=== PATIENT | female | born 1950 | race Caucasian/White ===

== ENCOUNTER 2020-04-16 07:36 | Outpatient (REF) | payer MEDICARE, SELFPAY ==
[2020-04-16 08:26] LABS: MANUAL DIFF FLAG NO
[2020-04-16 08:30] LABS: Basophils Absolute Auto 0.1 X10*3/uL (0.0-0.2); Basophils Percent Auto 0.9 % (0-2); Eosinophils Absolute Auto 0.4 X10*3/uL (0.0-0.4); Eosinophils Percent Auto 7.1 % (0-4); Hemoglobin 13.4 g/dl (12.0-16.0); Imm Gran Abs Auto 0.01 X10*3/uL (0.00-0.03); Imm Gran Pct Auto 0.2 % (0.0-0.4); Lymphocytes Absolute Auto 2.2 X10*3/uL (1.2-4.9); Lymphocytes Percent Auto 37.7 % (20-40); Mean Corpuscular HGB Conc 34.4 g/dl (31.0-35.0); Mean Corpuscular Hemoglobin 32.5 pg (27.0-33.0); Mean Corpuscular Volume 94.7 fL (80-98); Mean Platelet Volume 11.7 fL (9.4-12.3); Monocytes Absolute Auto 0.5 X10*3/uL (0.1-1.2); Monocytes Percent Auto 8.2 % (2-11); Neutrophils Absolute Auto 2.6 X10*3/uL (2.0-8.3); Neutrophils Percent Auto 45.9 % (45-73); Platelet Count 251 X10*3/uL (160-400); Red Blood Count 4.12 X10*6/uL (4.20-5.50); Red Cell Distribution Width 12.7 % (11.0-16.0); White Blood Count 5.8 X10*3/uL (4.8-10.8)
[2020-04-16 08:43] LABS: Glucose Urine UA NEG (NEG); Leukocyte Esterase Urine 1+ (NEG); Nitrite Urine NEG (NEG); Specific Gravity - Urine 1.025 (1.005-1.025); Urine Blood TRACE (NEG); Urine Ketones NEG (NEG); Urine Protein NEG (NEG-TRACE)
[2020-04-16 08:47] LABS: Appearance Urine HAZY; Color Urine YELLOW
[2020-04-16 08:58] LABS: Bacteria Urine TRACE /LPF; Mucus Urine TRACE /LPF; RBC Urine 0-2 /HPF (0); Squamous Epithelial Cell Urine 2+ /LPF
[2020-04-16 08:58] LABS: Alanine Aminotransferase 9 U/L (0-31); Alkaline Phosphatase 59 U/L (39-117); Anion Gap 9 (12-20); Aspartate Amino Transferase 16 U/L (5-31); Bilirubin Total 0.4 mg/dL (0.0-1.0); Blood Urea Nitrogen 15 mg/dL (9-16); Carbon Dioxide 30 mmol/L (22-29); Chloride 107 mmol/L (96-108); Cholesterol 235 mg/dL; Estimated Glomerular Filt Rate > 60; Glucose Fasting 94 mg/dL (60-99); HDL Cholesterol 84 mg/dL; LDL Cholesterol Calculated 130 mg/dl; Potassium 4.7 mmol/l (3.3-5.1); Sodium 141 mmol/L (135-145); Total Protein 6.6 g/dL (6.5-8.0); Triglycerides 106 mg/dL
[2020-04-16 09:15] LABS: TSH reflex Free T4 3.75 mIU/mL (0.32-4.0); Vitamin D 25-OH Total 37.8 ng/mL (>30)
== END 2020-04-16 07:37 | disposition home or self-care (01) ==
LOC: HO.LAB 07:36
PROVIDERS: PCP Internal Medicine; Visit Provider Internal Medicine
DX: Z00.00 Encounter for general adult medical examination without abnormal findings (principal); E78.00 Pure hypercholesterolemia, unspecified; J30.9 Allergic rhinitis, unspecified; M81.0 Age-related osteoporosis without current pathological fracture; E66.3 Overweight
CPT/HCPCS: 36415; 80053; 80061; 81001; 82306; 84443; 85025; 87086

== ENCOUNTER → 2020-04-20 07:55 | Outpatient (BNVA) | payer MEDICARE, SELFPAY | PROVIDERS: PCP Internal Medicine; Referring Provider Internal Medicine; Visit Provider Internal Medicine Endocrinology, Diabetes & Metabolism | DX: M81.0 Age-related osteoporosis without current pathological fracture (principal); E55.9 Vitamin D deficiency, unspecified | CPT/HCPCS: 99213; Q3014 ==

== ENCOUNTER 2020-10-04 09:46 | Outpatient (REF) | payer MEDICARE, SELFPAY ==
--- NOTE | ~2020-10-04 | XR_ITS ---
EXAMINATION: XR HAND, LEFT CLINICAL INFORMATION: Effusion, left hand COMPARISON: None TECHNIQUE: PA, lateral, and oblique views of the left hand. FINDINGS: There is no fracture or dislocation. Alignment is anatomic. There is significant joint space narrowing of the first carpometacarpal joint with sclerosis and prominent osteophyte formation. Overlying soft tissue swelling. There are also moderate degenerative changes of the triscaphe joint with narrowing and sclerosis. Mild to moderate degenerative changes throughout the interphalangeal joints with narrowing and osteophyte formation. XR/XR hand LT min 3V IMPRESSION: Advanced degenerative changes of the first carpometacarpal joint with overlying soft tissue swelling.
[2020-10-04 11:00] LABS: MANUAL DIFF FLAG NO
[2020-10-04 11:12] LABS: Basophils Percent Auto 0.4 % (0-2); Eosinophils Absolute Auto 0.3 X10*3/uL (0.0-0.4); Eosinophils Percent Auto 3.3 % (0-4); Hematocrit 33.6 % (37-47); Hemoglobin 11.5 g/dl (12.0-16.0); Imm Gran Abs Auto 0.02 X10*3/uL (0.00-0.03); Imm Gran Pct Auto 0.2 % (0.0-0.4); Lymphocytes Absolute Auto 1.7 X10*3/uL (1.2-4.9); Lymphocytes Percent Auto 18.4 % (20-40); Mean Corpuscular HGB Conc 34.2 g/dl (31.0-35.0); Mean Corpuscular Hemoglobin 31.5 pg (27.0-33.0); Mean Corpuscular Volume 92.1 fL (80-98); Mean Platelet Volume 11.8 fL (9.4-12.3); Monocytes Absolute Auto 0.8 X10*3/uL (0.1-1.2); Monocytes Percent Auto 8.3 % (2-11); Neutrophils Absolute Auto 6.4 X10*3/uL (2.0-8.3); Neutrophils Percent Auto 69.4 % (45-73); Platelet Count 297 X10*3/uL (160-400); Red Blood Count 3.65 X10*6/uL (4.20-5.50); Red Cell Distribution Width 12.2 % (11.0-16.0); White Blood Count 9.2 X10*3/uL (4.8-10.8)
[2020-10-04 11:25] LABS: Alanine Aminotransferase 9 U/L (0-31); Albumin Level 3.9 g/dL (3.5-5.0); Alkaline Phosphatase 60 U/L (39-117); Anion Gap 12 (12-20); Aspartate Amino Transferase 14 U/L (5-31); Bilirubin Total 0.4 mg/dL (0.0-1.0); Blood Urea Nitrogen 12 mg/dL (9-16); Calcium 9.1 mg/dL (8.4-10.2); Carbon Dioxide 25 mmol/L (22-29); Chloride 104 mmol/L (96-108); Estimated Glomerular Filt Rate > 60; Glucose Random 92 mg/dL (60-115); Potassium 4.7 mmol/L (3.3-5.1); Sodium 136 mmol/L (135-145); Total Protein 6.6 g/dL (6.5-8.0)
[2020-10-04 12:11] LABS: Erythrocyte Sedimentation Rate 20 MM/HR (0-20)
== END 2020-10-04 09:47 | disposition home or self-care (01) ==
LOC: HO.LAB 09:46
PROVIDERS: PCP Internal Medicine; Visit Provider Internal Medicine
DX: I10 Essential (primary) hypertension (principal); M25.442 Effusion, left hand; M25.542 Pain in joints of left hand; M79.7 Fibromyalgia; M10.9 Gout, unspecified
CPT/HCPCS: 36415; 73130; 80053; 84550; 85025; 85652

== ENCOUNTER 2020-11-11 13:38 | Outpatient (REF) | payer MEDICARE, SELFPAY ==
--- NOTE | ~2020-11-11 | US_ITS ---
EXAMINATION: US VENOUS ULTRASOUND WITH DOPPLER LOWER EXTREMITY, LEFT CLINICAL INFORMATION: Left leg edema and pain COMPARISON: None TECHNIQUE: Ultrasound of the deep veins is performed from the hip to the calf with compression sonography and color and pulse Doppler assessment. Spectral analysis with color-flow imaging is performed. FINDINGS: There is normal venous compression and respiratory variation and augmented flow. The visualized common femoral vein, superficial femoral vein, profunda femoral vein, popliteal vein, and the trifurcation region shows no evidence of deep venous thrombosis. There is no significant popliteal fossa cyst. If the patient's symptoms persist, followup ultrasound in 5 days 7 days might be of value to exclude proximal propagation from a non-visualized calf vein. US/US venous duplex LE LT IMPRESSION: No acute DVT demonstrated in the left lower extremity.
== END 2020-11-11 13:39 | disposition home or self-care (01) ==
LOC: HO.US 13:38
PROVIDERS: PCP Internal Medicine; Visit Provider Internal Medicine
DX: M79.662 Pain in left lower leg (principal); M79.89 Other specified soft tissue disorders
CPT/HCPCS: 93971

== ENCOUNTER → 2020-12-15 07:18 | Outpatient (REF) | payer MEDICARE, SELFPAY ==
--- NOTE | 2020-12-15 07:21 | CA_ITS ---
Transthoracic Echocardiogram Patient (Last, First, Middle): Yaritza Reich A Gender: Female Date of : 1950 Age: 70 Procedure Date: 12/15/2020 Procedure Type: Transthoracic Echocardiogram Location: OP Height: 157.48 cm Weight: 63.05 kg BSA: 1.64 m2 Heart Rate: bpm BP: 130 / 80 mmHg Computer Systems Technician: OLIVIER Hoffman MD: Bernabe Peterson MD Symptoms: R06.00 - Dyspnea, unspecified Study Quality: Good ECG Rhythm: Sinus Conclusions: - The left ventricular systolic function is normal. The calculated ejection fraction is 60% by biplane method. - Evidence suggests grade I (mild) diastolic dysfunction. - The left atrium is severely dilated. - No obvious valvular pathology seen on this study. Findings Left Ventricle Normal left ventricular cavity size. The left ventricular systolic function is normal. The visually estimated ejection fraction is between 60-65%. The calculated ejection fraction is 60% by biplane method. There is no evidence of regional wall motion abnormalities. E/E prime ratio is between 8 and 15 consistent with indeterminate filling pressures. Evidence suggests grade I (mild) diastolic dysfunction. Right Ventricle Normal right ventricular cavity size and systolic function. Atria The left atrium is severely dilated. The right atrium is normal in size. Aortic Valve There is a normal trileaflet aortic valve. There is no aortic valve stenosis. There is no aortic valve regurgitation. Mitral Valve The mitral valve appears normal. There is trace mitral valve regurgitation. There is no mitral valve stenosis. Pulmonic Valve The pulmonic valve was not well visualized. Tricuspid Valve Normal tricuspid valve structure. There is trace tricuspid valve regurgitation. The pulmonary artery systolic pressure is normal. Great Vessels The asc aorta is normal in size. Venous The inferior vena cava is normal in size and collapses greater than 50% with inspiration. Pericardium/Pleural There is a trivial pericardial effusion. Prior Study Comparison No prior study available for comparison. Recommendations, Care & Conclusions No obvious valvular pathology seen on this study. Measurements 2D Linear Measurements IVSd: 0.84 0.6-0.9/0.6-1.0 cm LVIDd: 3.66 3.9-5.3/4.2-5.9 cm LVIDd Index: 2.23 2.4-3.2/2.2-3.1 cm/m2 LVIDs: 2.53 2.0-3.6 cm LVPWd: 0.85 0.7-1.1 cm Ao Root: 3.00 2.1-3.5 cm LA Diam: 3.60 2.7-3.8/3.0-4.0 cm LAIDs Index: 2.20 1.5-2.3 cm/m2 LV Mass: 107.91 67-162/88-224 g LV Mass Index: 65.80 43-95/49-115 g/m2 LVOT Diam: 2.00 3.0+(-)1.3 cm 2D Systolic Function EF 4C: 56.70 >55% EF 2C: 60.90 >55% EF BiP: 59.50 >55% Mitral Valve MV Pk E: 0.97 MV PK A: 0.80 MV Decel Time: 301.00 E/A: 1.20 E'Lateral: 9.51 E'Medial: 7.83 E/E' Med: 12.30 E/E' Lat: 10.20 PHT: 88.00 MVA PHT: 2.50 Decel Ward: 3.21 Aortic Valve AoV Pk Gurmeet: 1.66 AoV Mn Gurmeet: 1.12 AoV VTI: 0.39 AoV Pk Grad: 11.00 Aov Mn Grad: 6.00 RACHEL Cont.VTI: 1.95 LVOT LVOT Pk Gurmeet: 1.08 LVOT Mn Gurmeet: 0.60 LVOT VTI: 0.24 LVOT Pk Grad: 5.00 LVOT Mn Grad: 2.00 LVOT Diam: 2.00 LVOT Area: 3.14 Diastolic Function MV Pk E: 0.97 MV Pk A: 0.80 E/A: 1.20 E'Medial: 7.83 E/E' Med: 12.30 E' Laterial: 9.51 E/E' Lat: 10.20 Tricuspid Valve TR Pk Gurmeet: 2.04 TR Pk Grad: 17.00 RA Press: 3.00 RVSP: 20.00 Great Vessels Aorta Ao Root-2D: 3.00 2.0-3.7 cm Ao Asc: 2.90 2.1-3.4 cm Ao Arch: 2.40 Updated in Other Vendor System with Status of Final Errol Nolan MD electronically signed on 12/16/2020 12:54:42 PM with status of Final
== END ==
LOC: HO.CARD 07:18
PROVIDERS: PCP Internal Medicine; Visit Provider Internal Medicine
DX: R06.00 Dyspnea, unspecified (principal); R42 Dizziness and giddiness
CPT/HCPCS: 93306

== ENCOUNTER → 2021-02-24 08:34 | Outpatient (BNVA) | payer MEDICARE, SELFPAY | PROVIDERS: PCP Internal Medicine; Referring Provider Internal Medicine; Visit Provider Internal Medicine Cardiovascular Disease | DX: R06.02 Shortness of breath (principal) | CPT/HCPCS: 93005; 99202 ==

== ENCOUNTER → 2021-03-09 07:52 | Outpatient (REF) | payer MEDICARE, SELFPAY ==
--- NOTE | ~2021-03-09 | NM_ITS ---
Exercise Myocardial perfusion study Indication: Chest pain to evaluate for myocardial ischemia Technique: The patient was brought in for an exercise perfusion study on 03/09/2021. Patient performed exercise as per Royal protocol and was injected 25 mCi of sestamibi was given intravenously one target HR was achieved. Images were obtained using the SPECT gamma camera interlaced with the gating device. Images were obtained in supine position. Resting perfusion study was performed on 03/10/2021. Patient was administered 25 mCi of sestamibi intravenously at rest. Images were then obtained in supine position. Images obtained with and without CT attenuation. Total DLP 72 mGy-cm. Images were processed with the software and compared side to side in short axis, horizontal long axis and vertical long axis views. Findings: The stress perfusion study showed nonattenuated images show minimal thinning of the distal anterior wall of the LV myocardium. Remainder of the LV myocardium is normally perfused. Attenuation corrected images show mildly reduced uptake in the apex of the LV myocardium.. The gated study shows normal LV systolic function with calculated LVEF of 60%. LV cavity is normal in size. The gated study shows normal systolic wall thickening and contraction of all segments. There is no transient ischemic dilation. Resting study shows no change in perfusion pattern compared to stress perfusion study. Gating at rest reveals normal systolic wall motion with ejection fraction at 54%. The findings are consistent with normal myocardial perfusion. NM/NM cardiolite stress test Impression: 1. Normal myocardial perfusion 2. Gated LVEF is 60% 3. Transient ischemic dilatation not present Stress EKG is negative for ischemia
--- NOTE | 2021-03-09 08:15 | CA_ITS ---
Acquisition Time: 2021-03-09 08:15:29 Total Exercise Time: 00:05:00 Test Indications: Dyspnea Medications: VIT C and D Protocol: BILLY Max HR: 137 BPM 92% of Pred: 148 BPM Max BP: 192/058 mmHG Max Work Load: 6.0 METS Exercise stess test with exercise 5 min of Billy protocol, ( last minute speed reduced to 2.2 MPH) with moderate shortness of breath, no chest discomfort, with isolated PACs and PVCs during exercise and recovery, occassional ventricular cuplet in recovery, with normtensive response to exercise, without EKG changes meeting criteria for ischemia. Nuclear images pending. Test reviewed with Dr Nolan. Referred By: Tomer Morales Overread By: BARRY RANGEL
== END ==
LOC: HO.CARD 07:52
PROVIDERS: PCP Internal Medicine; Visit Provider Internal Medicine Cardiovascular Disease
DX: R07.9 Chest pain, unspecified (principal); R06.02 Shortness of breath
CPT/HCPCS: 78452; 93017; A9500

== ENCOUNTER 2021-03-30 12:35 | Day surgery (SDC) | payer MEDICARE, SELFPAY ==
--- NOTE | 2021-03-22 09:10 | P.CONAN_ITS ---
Documented by User: Antonina Mckinnon NP 03/29/21 09:22 HPI - Anesthesia Eval Consult details Narrative: 70yo F for Transesophageal Echocardiogram PMFSH Active Problems Active Problems: All Active Problems (Updated 02/24/21 @ 09:12 by Tomer Morales MD) SOB (shortness of breath) on exertion (Acute) Left atrial dilatation (Acute) Orthostatic lightheadedness (Acute) Pain and swelling of left lower leg (Acute) Exertional dyspnea (Acute) Swelling of joint of left hand (Acute) Pain in joint of left hand (Acute) Overweight (BMI 25.0-29.9) (Acute) Allergic rhinitis (Acute) Pure hypercholesterolemia (Acute) Osteoarthritis (Acute) Dyslipidemia (Acute) Vitamin D deficiency (Acute) Age related osteoporosis (Acute) Past Medical History Medical History Age related osteoporosis Allergic rhinitis Dyslipidemia Exertional dyspnea Left atrial dilatation Orthostatic lightheadedness Osteoarthritis Overweight (BMI 25.0-29.9) Pain and swelling of left lower leg Pain in joint of left hand Pure hypercholesterolemia Swelling of joint of left hand Vitamin D deficiency Family History Family History Mother Prediabetes Hyperlipidemia Hypertension Father No problems noted. Surgical History Surgical History Hx of cataract removal with insertion of prosthetic lens (~12/2014) Hx of section Social History Social History Alcohol intake: current Alcohol intake frequency: a few times a week Patient Tobacco Use Status: Never used Tobacco Use of substances other than those prescribed or required for medical reasons: No Are you DNR?: No Advance Directives: No Advance Directives Information Provided: Yes Meds Allergies Allergy/AdvReac Type Severity Reaction Status Date / Time Sulfa (Sulfonamide Allergy Intermediate Swollen Verified 11/11/20 12:58 Antibiotics) red eyes amoxicillin [From Augmentin] AdvReac Severe DIARRHEA Verified 11/11/20 12:58 Home Medications Medication Instructions Recorded Confirmed Last Taken Type ascorbate calcium (vitamin C) 500 500 mg PO DAILY 04/20/20 02/24/21 Unknown History mg tablet Exam Exam Date and Time: March 22, 2021 0910 Narrative Narrative: ECHO 11/2020 Conclusions: - The left ventricular systolic function is normal. The? calculated ejection fraction is 60% by biplane method. ? - Evidence suggests grade I (mild) diastolic dysfunction.? - The left atrium is severely dilated. ? - No obvious valvular pathology seen on this study.? EKG 01/2021 normal sinus rhythm with normal EKG at 63 beats per minute NM cardiolite stress test 03/2021 Impression: ? 1.? Normal myocardial perfusion 2.? Gated LVEF is 60% 3. Transient ischemic dilatation not present ? Stress EKG is negative for ischemia Assessment and Plan Assessment Anesthesia Assessment: Chart Reviewed Documented by User: Maggie Hobson MD 03/30/21 13:31 [facility] Past Medical History Medical History Age related osteoporosis Allergic rhinitis Dyslipidemia Exertional dyspnea Left atrial dilatation Orthostatic lightheadedness Osteoarthritis Overweight (BMI 25.0-29.9) Pain and swelling of left lower leg Pain in joint of left hand Pure hypercholesterolemia Swelling of joint of left hand Vitamin D deficiency Family History Family History Mother Prediabetes Hyperlipidemia Hypertension Father No problems noted. Surgical History Surgical History Hx of cataract removal with insertion of prosthetic lens (~12/2014) Hx of section History of Problems with Anesthesia: Yes Social History Social History Alcohol intake: current Alcohol intake frequency: a few times a week Patient Tobacco Use Status: Never used Tobacco Use of substances other than those prescribed or required for medical reasons: No Are you DNR?: No Advance Directives: No Advance Directives Information Provided: Yes Meds Allergies Allergy/AdvReac Type Severity Reaction Status Date / Time Sulfa (Sulfonamide Allergy Intermediate Swollen Verified 11/11/20 12:58 Antibiotics) red eyes amoxicillin [From Augmentin] AdvReac Severe DIARRHEA Verified 11/11/20 12:58 Home Medications Medication Instructions Recorded Confirmed Last Taken Type ascorbate calcium (vitamin C) 500 500 mg PO DAILY 04/20/20 02/24/21 Unknown History mg tablet Assessment and Plan Assessment Anesthesia Assessment: Anesthesia Plan Discussed Final Anesthetic Review History of Problems with Anesthesia: Yes NPO: Yes ASA Class: II (Edentulous) Final Preanesthetic Review: Meds/Allgs Chart Reviewed, Consent Obtained/Reviewed and Anes Risks/Benef Reviewed Patient Risk: Intermediate Procedure Risk: Intermediate Anesthetic Plan Anesthetic Plan: MAC: Disposition: Standard PACU
[2021-03-30 13:05] VITALS: BP 170/81; PULSE 71; RESP 20; TEMP 36.2; O2SAT 99; BMI 24.7
--- NOTE | 2021-03-30 13:06 | CA_ITS ---
Transesophageal Echocardiogram Patient (Last, First, Middle): Yaritza Reich A Gender: Female Date of : 1950 Age: 70 Procedure Date: 03/30/2021 Procedure Type: Transesophageal Echocardiogram Location: OP Height: 152.4 cm Weight: kg Rn [facility]: [facility] Referring MD: Tomer Morales MD Creative Services Specialist: Tomer Morales MD Symptoms: R06.02 - Shortness of breath Conclusion: ??? 1. Normal left ventricle systolic function with grade 1 diastolic dysfunction 2. Dilated left atrium with no apparent abnormalities 3. Normal cardiac valvular structure and function 4. No intracardiac thrombi, masses or vegetation 5. Normal ascending aorta 6. No intracardiac shunt 7. No significant pericardial disease Findings Procedure Information Consent was obtained prior to the procedure. Pre ELIGIO oral cavity was checked and revealed no overcrowding. The adult 3D probe was passed with no difficulty. This was a technically good study. Left Ventricle Normal left ventricular size, thickness, and systolic function. The visually estimated ejection fraction is between 60-65%. Spectral Doppler is indicative of an impaired relaxation filling pattern. E/E prime ratio is <8, consistent with normal filling pressures. Evidence suggests grade I (mild) diastolic dysfunction. Right Ventricle Normal right ventricular cavity size and systolic function. Atria The left atrium is moderately dilated. There is lipomatous hypertrophy of the interatrial septum. There is no evidence of interatrial shunt. The left atrial appendage was identified in multiple views. There were thrombus or masses seen in the left atrial appendage. The left upper, right upper and right lower pulmonary vein drain normally into the left atrium. The right atrium is normal in size. The IVC and SVC drain normally into the right atrium. The right atrial appendage is identified. Aortic Valve Normal aortic valve structure and function. There is no aortic valve stenosis. There is no evidence of a mass on the aortic valve. There is no aortic valve regurgitation. Mitral Valve Normal mitral valve structure and function. There is no mitral valve prolapse. There is trace mitral valve regurgitation. There is no mitral valve stenosis. There is no mass noted on the mitral valve. Pulmonic Valve The pulmonic valve is normal. There is trace pulmonic valve regurgitation. Tricuspid Valve Normal tricuspid valve structure. Great Vessels All visible segments of the aorta are normal in size. The visualized portions of the pulmonary artery and branches are normal. Venous The inferior vena cava is collapsed, consistent with reduced intravascular volume. Pericardium/Pleural There is no evidence of pericardial effusion. Updated by Tomer Morales on 02:37 PM with Status of Final Tomer Morales MD electronically signed on 03/31/2021 2:37:18 PM with status of Final
[2021-03-30] MEDS: Lactated Ringers 1,000 ML 100 ML IVCONT (13:29)
[2021-03-30 14:38] VITALS: BP 124/59; PULSE 67; RESP 18; TEMP 36.2; O2SAT 99
[2021-03-30 14:53] VITALS: BP 156/75; PULSE 63; RESP 16; O2SAT 97
[2021-03-30 15:07] VITALS: BP 157/71; PULSE 64; RESP 18; TEMP 36.2; O2SAT 99
--- NOTE | 2021-03-30 15:07 | MHC.SHP ---
Pre-Procedural Eval Section A Date of Service: 03/30/21 The patient is an INPATIENT: No Changes since office visit: Yes Patient answered all questions; No Cold of Flu in the past 2 weeks, No New Medical Problems and No Changes in Medication Section B Chief Complaint: SOB Allergies: Allergies Allergy/AdvReac Type Severity Reaction Status Date / Time Sulfa (Sulfonamide Allergy Intermediate Swollen Verified 11/11/20 12:58 Antibiotics) red eyes amoxicillin [From Augmentin] AdvReac Severe DIARRHEA Verified 11/11/20 12:58 Plan I have reviewed the history and physical and performed a pertinent physical examination on my patient. No changes have occurred unless specified.
== END 2021-03-30 16:03 | disposition home or self-care (01) ==
PROVIDERS: PCP Internal Medicine; Visit Provider Internal Medicine Cardiovascular Disease
PROC: (CPT 93312; principal; 2021-03-30 14:10)
DX: R06.02 Shortness of breath (principal); Z88.0 Allergy status to penicillin; Z88.2 Allergy status to sulfonamides
CPT/HCPCS: 93312

== ENCOUNTER 2021-04-18 07:40 | Outpatient (REF) | payer MEDICARE, SELFPAY ==
--- NOTE | 2021-04-18 17:33 | PFT_ITS ---
INDICATION: Dyspnea. SPIROMETRY: The FEV1 to FVC is 76% with an FEV1 of 1.25 L, which is 62% predicted and an FVC of 1.65 L, which is 61% predicted. No significant response to bronchodilators noted. To note, the [id number] decreased to 49% predicted. Maximum voluntary ventilation 61% predicted. LUNG VOLUMES: Total lung capacity 82% predicted with a residual volume of 111% predicted. DIFFUSION CAPACITY: DLCO 52% predicted. COMPARISONS: None. INTERPRETATION: No definitive obstructive nor restrictive ventilatory defects identified. No significant response to bronchodilators noted. The patient does have some degree of small airways disease noted and there is also mild decrease in maximum voluntary ventilation secondary to likely deconditioning. Lung volumes are within normal limits except for low normal total lung capacity. In addition to that, there is a moderate diffusion impairment likely secondary to underlying pulmonary vascular conditions, although occult interstitial lung disease cannot be ruled out. If asthma is in the differential, methacholine challenge may be helpful in assessing for hyper-reactive airways, otherwise clinical correlation warranted. Regulo Maguire MD MR/MODL / [id number]
== END 2021-04-18 07:41 | disposition home or self-care (01) ==
LOC: HO.RESP 07:40
PROVIDERS: PCP Internal Medicine; Visit Provider Internal Medicine Cardiovascular Disease
DX: R06.00 Dyspnea, unspecified (principal); R06.02 Shortness of breath; R42 Dizziness and giddiness
CPT/HCPCS: 94060; 94727; 94729

== ENCOUNTER 2021-04-27 09:02 | Outpatient (REF) | payer MEDICARE, SELFPAY ==
[2021-04-27 11:08] LABS: Hematocrit 41.5 % (37-47); Hemoglobin 13.9 g/dl (12.0-16.0); Mean Corpuscular HGB Conc 33.5 g/dl (31.0-35.0); Mean Corpuscular Hemoglobin 30.8 pg (27.0-33.0); Mean Corpuscular Volume 91.8 fL (80-98); Mean Platelet Volume 12.4 fL (9.4-12.3); Platelet Count 283 X10*3/uL (160-400); Red Blood Count 4.52 X10*6/uL (4.20-5.50); Red Cell Distribution Width 13.6 % (11.0-16.0); White Blood Count 5.7 X10*3/uL (4.8-10.8)
[2021-04-27 11:14] LABS: INTERNATIONAL NORM RATIO 0.9 (0.9-1.1); Prothrombin Time 10.6 SEC (9.9-13.0)
[2021-04-27 11:45] LABS: Anion Gap 16 (12-20); Blood Urea Nitrogen 11 mg/dL (9-16); Calcium 10.2 mg/dL (8.4-10.2); Carbon Dioxide 26 mmol/L (22-29); Chloride 102 mmol/L (96-108); Estimated Glomerular Filt Rate > 60; Glucose Random 111 mg/dL (60-115); Potassium 5.1 mmol/L (3.3-5.1); Sodium 139 mmol/L (135-145)
== END 2021-04-27 09:03 | disposition home or self-care (01) ==
LOC: HO.LAB 09:02
PROVIDERS: PCP Internal Medicine; Referring Provider Internal Medicine; Visit Provider Internal Medicine Cardiovascular Disease
DX: R06.00 Dyspnea, unspecified (principal); R06.02 Shortness of breath
CPT/HCPCS: 36415; 80048; 85027; 85610; 99212

== ENCOUNTER 2021-05-04 08:44 | Outpatient (REF) | payer MEDICARE, SELFPAY ==
--- NOTE | ~2021-05-04 | FL_ITS ---
EXAMINATION: XR GI SERIES CLINICAL INFORMATION: Abdominal pain. COMPARISON: None TECHNIQUE: Upper GI was performed using thin and thick barium and effervescent granules. FINDINGS: There is a moderate-sized hiatal hernia. There is gastroesophageal reflux. Stomach and duodenum are otherwise normal. No fold thickening, mass, ulcer or stricture is seen. FLUOROSCOPY TIME: 0.9 minutes DOSE AREA PRODUCT: 5.8 Soriano per centimeter squared. 25 saved fluoroscopic images. FL/FL upper GI series IMPRESSION: Moderate-sized hiatal hernia and gastroesophageal reflux.
== END 2021-05-04 08:45 | disposition home or self-care (01) ==
LOC: HO.XRAY 08:44
PROVIDERS: Visit Provider Internal Medicine
DX: R10.9 Unspecified abdominal pain (principal)
CPT/HCPCS: 74240

== ENCOUNTER → 2021-05-17 14:44 | Outpatient (BNVA) | payer MEDICARE, SELFPAY | PROVIDERS: PCP Internal Medicine; Referring Provider Internal Medicine; Visit Provider Nurse Practitioner Family | DX: I51.7 Cardiomegaly (principal); E78.5 Hyperlipidemia, unspecified; R06.02 Shortness of breath; Z98.890 Other specified postprocedural states | CPT/HCPCS: 99212 ==

== ENCOUNTER 2021-05-23 13:53 | Emergency (ER) | payer MEDICARE, SELFPAY ==
--- NOTE | ~2021-05-23 | US_ITS ---
EXAMINATION: US VENOUS ULTRASOUND WITH DOPPLER LOWER EXTREMITY, LEFT CLINICAL INFORMATION: Left leg edema COMPARISON: Left leg DVT study 11/11/2020 TECHNIQUE: Ultrasound of the deep veins is performed from the hip to the calf with compression sonography and color and pulse Doppler assessment. Spectral analysis with color-flow imaging is performed. FINDINGS: There is normal venous compression and respiratory variation and augmented flow. The visualized common femoral vein, superficial femoral vein, profunda femoral vein, popliteal vein, and the trifurcation region shows no evidence of deep venous thrombosis. There is no significant popliteal fossa cyst. If the patient's symptoms persist, followup ultrasound in 5 days 7 days might be of value to exclude proximal propagation from a non-visualized calf vein. US/US venous duplex LE LT IMPRESSION: No DVT demonstrated in the left lower extremity.
--- NOTE | ~2021-05-23 | CT_ITS ---
EXAMINATION: CT HEAD WITHOUT CONTRAST CLINICAL INFORMATION: Dizziness. COMPARISON: None TECHNIQUE: Contiguous axial imaging was performed from the skull base to vertex without intravenous administration of contrast. This CT examination was performed using dose optimization techniques as appropriate, variously including the following: *Automated exposure control *Adjustment of mA and/or kV according to patient size (this includes techniques or standardized protocols for targeted exams where dose is matched to indication/reason for exam; i.e. extremities or head) *Use of iterative reconstruction technique DLP: 592 mGy-cm FINDINGS: There is no evidence of acute intracranial hemorrhage or edematous territorial infarction. A few foci of hypoattenuation in the periventricular and deep white matter are consistent with mild microangiopathy. Soriano-white matter differentiation is preserved. The ventricles are normal in size and configuration. No evidence for obstructive hydrocephalus. No abnormal mass effect or midline shift. No extra-axial fluid collections. No acute soft tissue or osseous abnormalities. Large mucus retention cyst in the left maxillary sinus. Remaining of the paranasal sinuses and mastoids are clear. CT/CT head/brain wo con IMPRESSION: No evidence of acute intracranial hemorrhage or edematous territorial infarction.
--- NOTE | 2021-05-23 15:21 | ECG_ITS ---
Test Reason : Numbness Blood Pressure : / mmHG Vent. Rate : 066 BPM Atrial Rate : 066 BPM P-R Int : 142 ms QRS Dur : 086 ms QT Int : 398 ms P-R-T Axes : 051 024 038 degrees QTc Int : 417 ms Normal sinus rhythm RSR' or QR pattern in V1 suggests right ventricular conduction delay Otherwise normal ECG When compared with ECG of 01-DEC-2014 08:12, No significant change was found Referred By: Generic ED Physician Electronically Signed By:AFSHIN MARKHAM MD
[2021-05-23 16:02] VITALS: BP 172/74; PULSE 67; RESP 18; O2SAT 98; BMI 24.8
--- NOTE | 2021-05-23 16:38 | ED_ITS ---
HPI - General Adult General Chief complaint: Dizziness Stated complaint: l numbness light headed Time Seen by Provider: 05/23/21 16:38 Source: patient Mode of arrival: ambulatory Limitations: no limitations History of Present Illness HPI narrative: this is a 70 years old of female presented to the emergency department with a chief complaint of left leg tingling x2 days , dizziness this morning which resolved , patient had recent workup for chest pain she had cardiac cath done [facility] which was normal Onset (ago): day(s) (2) Radiation: non-radiation Severity: moderate Pain Consistency: constant Relieving factors: none Exacerbating factors: none Related Data Home Medications Medication Instructions Recorded Confirmed ascorbate calcium (vitamin C) 500 500 mg PO DAILY 04/20/20 04/04/21 mg tablet Previous Rx's Medication Instructions Recorded cholecalciferol (vitamin D3) 50 50 mcg PO DAILY 30 Days #30 cap 04/20/20 mcg (2,000 unit) capsule fluticasone propionate 50 2 spray INTRANASAL DAILY PRN 30 05/02/21 mcg/actuation nasal Days #16 g spray,suspension Allergies Allergy/AdvReac Type Severity Reaction Status Date / Time Sulfa (Sulfonamide Allergy Intermediate Swollen Verified 05/17/21 15:08 Antibiotics) red eyes amoxicillin [From Augmentin] AdvReac Severe DIARRHEA Verified 05/17/21 15:08 Review of Systems Review of Systems: Yes all other systems are reviewed and are negative ENT: Reports system reviewed and no additional complaints, except as documented Cardiovascular: Cardiovascular: Reports no additional cardiovascular complaints Respiratory: Respiratory: Reports no additional respiratory complaints Gastrointestinal: Gastrointestinal: Reports no additional gastrointestinal complaints Genitourinary: Genitourinary: Reports no additional female genitourinary complaints Neurologic: Reports system reviewed and no additional complaints, except as documented and Reports other (tingling left leg) [facility] [place] Past Medical History Medical History Age related osteoporosis Allergic rhinitis Dyslipidemia Exertional dyspnea Left atrial dilatation Orthostatic lightheadedness Osteoarthritis Overweight (BMI 25.0-29.9) Pain and swelling of left lower leg Pain in joint of left hand Pure hypercholesterolemia Swelling of joint of left hand Vitamin D deficiency Surgical History History of cardiac cath Hx of cataract removal with insertion of prosthetic lens (~12/2014) Hx of section Status post cardiac catheterization Family History Family History Mother Prediabetes Hyperlipidemia Hypertension Father No problems noted. Social History Social History Housing: House Alcohol intake: current Alcohol intake frequency: a few times a week Patient Tobacco Use Status: Never used Tobacco Second Hand Smoke Exposure: Yes Advance Directives: No Advance Directives Information Provided: Yes service: No Current occupational status: retired Physical Exam Vital Signs: Vital Signs: Last Vital Signs Pulse 62 05/23/21 16:57 Resp 18 05/23/21 16:57 BP 152/82 H 05/23/21 16:57 Pulse Ox 97 05/23/21 16:57 Body Mass Index 24.8 Const: General: cooperative, healthy appearing, comfortable, no acute distress, well developed, alert, awake and Physically active Nutritional Appearance: average body habitus Orientation/consciousness: oriented to person, oriented to place, oriented to time and patient oriented x3 HENMT: Head: Yes normal to inspection Face and sinus: Yes normal facial exam Mouth: Normal oral and palatal mucosa present Neck: Neck: Yes normal visual inspection, Yes full ROM and Yes no lymphadenopathy Chest: Chest palpation & inspection: normal inspection of the chest Resp: Effort & Inspection: normal respiratory effort Auscultation: clear to auscultation bilaterally Cardio: Jugular venous distension: no JVD Rate: regular rate Rhythm: regular rhythm GI: Inspection: Yes normal to inspection Palpation (GI): Soft to palpation, not firm, nontender and no guarding Neuro: General: oriented to person, oriented to place, oriented to time, patient oriented x3, gait normal, Normal light touch and pain sensation and CN's II-XI intact bilaterally Cranial nerves: Yes CN's II-XII intact bilaterally Gait exam (Neuro): Normal gait present Motor exam (neuro): 5/5 motor strength present throughout Course Reevaluation(s) Reevaluation #1: CT is negative, I do think this patient has CVA she has completely normal neuro examination ;she feels more pins and needle and a left foot. There is no anesthesia no weakness. She has excellent pedal pulses the color the foot is pink . We are going to get an ultrasound of the left lower extremity ;if is normal I anticipate discharge of the patient Medical Decision Making Lab Data Result diagrams: 05/23/21 16:57 05/23/21 16:57 Labs: Lab Results 05/23/21 05/23/21 Range/Units 16:57 16:57 WBC 6.9 (4.8-10.8) X10*3/uL RBC 4.24 (4.20-5.50) X10*6/uL Hgb 13.5 (12.0-16.0) g/dl Hct 38.8 (37.0-47.0) % MCV 91.5 (80.0-98.0) fL MCH 31.8 (27.0-33.0) pg MCHC 34.8 (31.0-35.0) g/dl RDW 12.9 (11.0-16.0) % Plt Count 280 (160-400) X10*3/uL MPV 11.6 (9.4-12.3) fL Immature Gran % (Auto) 0.1 (0.0-0.4) % Neut % (Auto) 60.4 (45-73) % Lymph % (Auto) 24.9 (20-40) % [place] % (Auto) 10.5 (2-11) % Eos % (Auto) 3.5 (0-4) % Baso % (Auto) 0.6 (0-2) % Lymph # (Auto) 1.7 (1.2-4.9) X10*3/uL [place] # (Auto) 0.7 (0.1-1.2) X10*3/uL Eos # (Auto) 0.2 (0.0-0.4) X10*3/uL Baso # (Auto) 0.0 (0.0-0.2) X10*3/uL Abs Immat Gran (auto) 0.01 (0.00-0.03) X10*3/uL Absolute Neuts (auto) 4.2 (2.0-8.3) x10*3/uL Absolute Nucleated RBC 0.000 (0.0-0.012) X10*3/uL Nucleated RBC % (auto) 0.0 (0.0-0.2) /100WBC Sodium 141 (135-145) mmol/L Potassium 4.9 (3.3-5.1) mmol/L Chloride 110 H (96-108) mmol/L Carbon Dioxide 20 L (22-29) mmol/L Anion Gap 16 (12-20) BUN 15 (9-16) mg/dL Creatinine 0.75 (0.5-1.4) mg/dL Estim Creat Clear Calc 58.6 Estimated GFR > 60 Random Glucose 91 (60-115) mg/dL Calcium 9.3 D (8.4-10.2) mg/dL Imaging Data US LEG: Radiologist's impression: TECHNIQUE: Ultrasound of the deep veins is performed from the hip to the calf with compression sonography and color and pulse Doppler assessment. Spectral analysis with color-flow imaging is performed. FINDINGS: There is normal venous compression and respiratory variation and augmented flow. The visualized common femoral vein, superficial femoral vein, profunda femoral vein, popliteal vein, and the trifurcation region shows no evidence of deep venous thrombosis. ? There is no significant popliteal fossa cyst. If the patient's symptoms persist, followup ultrasound in 5 days 7 days might be of value to exclude proximal propagation from a non-visualized calf vein. US/US venous duplex LE LT IMPRESSION: No DVT demonstrated in the left lower extremity. Dictated By: TESSY CONKLIN MD Signed By: <Electro ECG Data Attestation: I personally reviewed and interpreted this ECG as follows: Prior ECG tracings: available for review Pacemaker model: NSR a rate is [address]-T segment isoelectric normal EKG Discharge Plan Discharge Clinical Impression: Paresthesia of left foot, Dizziness Patient Disposition: Home, Self-Care Prescriptions: No Action fluticasone propionate 50 mcg/actuation spray,suspension 2 spray intranasal DAILY PRN (Reason: nasal congestion) 30 Days Qty: 16 RF: 12 ascorbate calcium (vitamin C) 500 mg tablet 500 mg PO DAILY RF: 0 cholecalciferol (vitamin D3) 50 mcg (2,000 unit) capsule 50 mcg PO DAILY 30 Days Qty: 30 RF: 11 Referrals: Bernabe Peterson MD [Primary Care Provider] - 2 days Derek Rodriguez MD [Physician] - 2 days
[2021-05-23 16:57] VITALS: BP 152/82; PULSE 62; RESP 18; O2SAT 97
[2021-05-23 17:01] LABS: MANUAL DIFF FLAG NO
[2021-05-23 17:04] LABS: Basophils Percent Auto 0.6 % (0-2); Eosinophils Absolute Auto 0.2 X10*3/uL (0.0-0.4); Eosinophils Percent Auto 3.5 % (0-4); Hematocrit 38.8 % (37.0-47.0); Hemoglobin 13.5 g/dl (12.0-16.0); Imm Gran Abs Auto 0.01 X10*3/uL (0.00-0.03); Imm Gran Pct Auto 0.1 % (0.0-0.4); Lymphocytes Absolute Auto 1.7 X10*3/uL (1.2-4.9); Lymphocytes Percent Auto 24.9 % (20-40); Mean Corpuscular HGB Conc 34.8 g/dl (31.0-35.0); Mean Corpuscular Hemoglobin 31.8 pg (27.0-33.0); Mean Corpuscular Volume 91.5 fL (80.0-98.0); Mean Platelet Volume 11.6 fL (9.4-12.3); Monocytes Absolute Auto 0.7 X10*3/uL (0.1-1.2); Monocytes Percent Auto 10.5 % (2-11); Neutrophils Absolute Auto 4.2 x10*3/uL (2.0-8.3); Neutrophils Percent Auto 60.4 % (45-73); Platelet Count 280 X10*3/uL (160-400); Red Blood Count 4.24 X10*6/uL (4.20-5.50); Red Cell Distribution Width 12.9 % (11.0-16.0); White Blood Count 6.9 X10*3/uL (4.8-10.8)
[2021-05-23 17:23] LABS: Anion Gap 16 (12-20); Blood Urea Nitrogen 15 mg/dL (9-16); Calcium 9.3 mg/dL (8.4-10.2); Carbon Dioxide 20 mmol/L (22-29); Chloride 110 mmol/L (96-108); Creatinine Clr Calc Pharmacy 58.6; Estimated Glomerular Filt Rate > 60; Glucose Random 91 mg/dL (60-115); Potassium 4.9 mmol/L (3.3-5.1); Sodium 141 mmol/L (135-145)
== END 2021-05-23 21:05 | disposition home or self-care (01) ==
PROVIDERS: Emergency Provider Emergency Medicine; PCP Internal Medicine
DX: R42 Dizziness and giddiness (principal); R20.2 Paresthesia of skin; M79.662 Pain in left lower leg
CPT/HCPCS: 36415; 70450; 80048; 85025; 93005; 93971; 99284

== ENCOUNTER → 2021-05-30 10:46 | Outpatient (BNVA) | payer MEDICARE, SELFPAY | PROVIDERS: PCP Internal Medicine; Visit Provider Internal Medicine | DX: J30.9 Allergic rhinitis, unspecified (principal); R06.00 Dyspnea, unspecified | CPT/HCPCS: 99202 ==

== ENCOUNTER 2021-08-03 11:01 | Outpatient (REF) | payer MEDICARE, SELFPAY ==
[2021-08-03 11:45] LABS: Appearance Urine CLEAR; Color Urine YELLOW; Glucose Urine UA NEG (NEG); Leukocyte Esterase Urine 1+ (NEG); Nitrite Urine NEG (NEG); PH 5.5 (5.0-8.0); Specific Gravity - Urine <= 1.005 (1.005-1.025); Urine Blood TRACE (NEG); Urine Ketones NEG (NEG); Urine Protein NEG (NEG-TRACE)
[2021-08-03 12:13] LABS: RBC Urine 0-2 /HPF (0); Renal Epithelial Cells Urine TRACE /LPF; Squamous Epithelial Cell Urine 2+ /LPF
== END 2021-08-03 11:02 | disposition home or self-care (01) ==
LOC: HO.LAB 11:01
PROVIDERS: PCP Internal Medicine; Visit Provider Internal Medicine
DX: R30.0 Dysuria (principal)
CPT/HCPCS: 81001

== ENCOUNTER 2021-11-17 06:52 | Outpatient (REF) | payer MEDICARE, SELFPAY ==
[2021-11-17 07:13] LABS: MANUAL DIFF FLAG NO
[2021-11-17 07:23] LABS: Basophils Percent Auto 0.7 % (0-2); Eosinophils Absolute Auto 0.3 X10*3/uL (0.0-0.4); Eosinophils Percent Auto 5.1 % (0-4); Hematocrit 38.7 % (37.0-47.0); Hemoglobin 13.3 g/dl (12.0-16.0); Imm Gran Abs Auto 0.03 X10*3/uL (0.00-0.03); Imm Gran Pct Auto 0.5 % (0.0-0.4); Lymphocytes Absolute Auto 1.9 X10*3/uL (1.2-4.9); Lymphocytes Percent Auto 33.5 % (20-40); Mean Corpuscular HGB Conc 34.4 g/dl (31.0-35.0); Mean Corpuscular Hemoglobin 32.3 pg (27.0-33.0); Mean Corpuscular Volume 93.9 fL (80.0-98.0); Mean Platelet Volume 11.7 fL (9.4-12.3); Monocytes Absolute Auto 0.5 X10*3/uL (0.1-1.2); Monocytes Percent Auto 9.1 % (2-11); Neutrophils Absolute Auto 2.9 x10*3/uL (2.0-8.3); Neutrophils Percent Auto 51.1 % (45-73); Platelet Count 278 X10*3/uL (160-400); Red Blood Count 4.12 X10*6/uL (4.20-5.50); Red Cell Distribution Width 13.4 % (11.0-16.0); White Blood Count 5.7 X10*3/uL (4.8-10.8)
[2021-11-17 07:49] LABS: Alanine Aminotransferase 10 U/L (0-31); Albumin Level 3.9 g/dL (3.5-5.0); Alkaline Phosphatase 65 U/L (39-117); Anion Gap 11 (12-20); Aspartate Amino Transferase 15 U/L (5-31); Bilirubin Total 0.7 mg/dL (0.0-1.0); Blood Urea Nitrogen 13 mg/dL (9-16); Calcium 9.4 mg/dL (8.4-10.2); Carbon Dioxide 26 mmol/L (22-29); Chloride 107 mmol/L (96-108); Cholesterol 225 mg/dL; Estimated Glomerular Filt Rate > 60; Glucose Fasting 99 mg/dL (60-99); HDL Cholesterol 74 mg/dL; LDL Cholesterol Calculated 129 mg/dl; Potassium 4.7 mmol/L (3.3-5.1); Sodium 139 mmol/L (135-145); Total Protein 6.7 g/dL (6.5-8.0); Triglycerides 110 mg/dL
[2021-11-17 08:07] LABS: Appearance Urine HAZY; Color Urine YELLOW; Glucose Urine UA NEG (NEG); Leukocyte Esterase Urine 1+ (NEG); Nitrite Urine NEG (NEG); UACC Culture Trigger YES; Urine Blood TRACE (NEG); Urine Ketones NEG (NEG); Urine Protein NEG (NEG-TRACE)
[2021-11-17 08:12] LABS: TSH reflex Free T4 2.47 uIU/mL (0.32-4.0); Vitamin D 25-OH Total 31.8 ng/mL (>30)
[2021-11-17 08:17] LABS: UACC CULT YES
[2021-11-17 08:18] LABS: Renal Epithelial Cells Urine 2+ /LPF; Squamous Epithelial Cell Urine 1+ /LPF
== END 2021-11-17 06:53 | disposition home or self-care (01) ==
LOC: HO.LAB 06:52
PROVIDERS: PCP Internal Medicine; Visit Provider Internal Medicine
DX: Z00.00 Encounter for general adult medical examination without abnormal findings (principal); E78.00 Pure hypercholesterolemia, unspecified; E55.9 Vitamin D deficiency, unspecified; R30.0 Dysuria
CPT/HCPCS: 36415; 80053; 80061; 81001; 82306; 84443; 85025; 87086

== ENCOUNTER → 2021-12-07 09:17 | Outpatient (BNVA) | payer MEDICARE, SELFPAY | PROVIDERS: PCP Internal Medicine; Visit Provider Internal Medicine Endocrinology, Diabetes & Metabolism | DX: M81.0 Age-related osteoporosis without current pathological fracture (principal) | CPT/HCPCS: 99212 ==

== ENCOUNTER 2022-02-07 08:31 | Outpatient (REF) | payer MEDICARE, SELFPAY ==
--- NOTE | ~2022-02-07 | MM_ITS ---
EXAMINATION: BONE DENSITOMETRY CLINICAL INDICATION: Osteoporosis. COMPARISON: Previous BD dated 02/04/2020 and baseline BD dated 07/15/2007. TECHNIQUE: Using a Blackstrap DXA System (software version: 13.1) manufactured by [employer], dual-energy x-ray absorptiometry was performed of the lumbar spine and left hip. The images are of good technical quality. Summary results are attached. FINDINGS: AP SPINE L1-L4: Current: BMD 0.822 g/cm2, Z-score -1.2, T-score -3.0, osteoporosis, 4.4% decrease from previous, 12.4% decrease from baseline (<5% change is not significant). Prior: BMD 0.860 g/cm2. Baseline: BMD 0.938 g/cm2. LEFT FEMUR, NECK: Current: BMD 0.764 g/cm2, Z-score -0.1, T-score -2.0, osteopenia. Prior: BMD 0.760 g/cm2. Baseline: BMD 0.784 g/cm2. LEFT FEMUR, TOTAL: Current: BMD 0.841 g/cm2, Z-score 0.4, T-score -1.3, osteopenia, 3.3% increase from previous, 1.1% decrease from baseline (<5% change is not significant). Prior: BMD 0.814 g/cm2. Baseline: BMD 0.850 g/cm2. IDENTIFIED RISK FACTORS: Menopause, history of fracture (adult), osteoporosis. HISTORY OF FRACTURE: Spine T11. MEDICATIONS: Calcium, vitamin D. MM/XR DEXA axial skeleton IMPRESSION: 1. DIAGNOSIS: Osteoporosis based on the lowest T-score value of -3.0 in the lumbar spine applying World Health Organization criteria. 2. 10-YEAR FRACTURE RISK PREDICTION, FRAX: According to the guidelines, FRAX calculation should only be performed on patients in the osteopenia bone density category. Therefore, FRAX was not performed on this patient. 3. Treatment Recommendations: NOF guidelines recommend consideration for treatment in postmenopausal women and men age 50 and older presenting with the following: -A hip or vertebral (clinical or morphometric) fracture. -T-score less than or equal to -2.5 at the femoral neck or spine after appropriate evaluation to exclude secondary causes. -Low bone mass at the hip or spine and a 10-year fracture probability by FRAX of greater than or equal to 3% for hip fracture or greater than or equal to 20% for major osteoporotic fracture based on the [place] adapted WHO algorithm. 4. Other Recommendations: All treatment decisions require clinical judgment and consideration of individual patient factors, including patient preferences, comorbidities, previous drug use, risk factors not captured in the FRAX model (e.g. frailty, falls, vitamin D deficiency, increased bone turnover, interval significant decline in bone density) and possible under or overestimation of fracture risk by FRAX. Additional medical evaluation for secondary cause of low bone mineral density may be appropriate. FUTURE SCAN RECOMMENDATION: People with diagnosed cases of osteoporosis or at high risk for fracture should have regular bone mineral density tests. For patients eligible for Medicare, routine testing is allowed once every 2 years. The testing frequency can be increased to one year for patients who have rapidly progressing disease, those who are receiving or discontinuing medical therapy to restore bone mass, or have additional risk factors.
== END 2022-02-07 08:32 | disposition home or self-care (01) ==
LOC: HO.MAMMO 08:31
PROVIDERS: Visit Provider Internal Medicine Endocrinology, Diabetes & Metabolism
DX: Z13.820 Encounter for screening for osteoporosis (principal); M81.0 Age-related osteoporosis without current pathological fracture; Z78.0 Asymptomatic menopausal state
CPT/HCPCS: 77080

== ENCOUNTER → 2022-04-26 09:28 | Outpatient (BNVA) | payer MEDICARE, SELFPAY | PROVIDERS: PCP Internal Medicine; Visit Provider Internal Medicine Endocrinology, Diabetes & Metabolism | DX: M81.0 Age-related osteoporosis without current pathological fracture (principal) | CPT/HCPCS: 99212 ==

== ENCOUNTER 2022-07-03 09:36 | Emergency (ER) | payer MEDICARE, SELFPAY ==
--- NOTE | ~2022-07-03 | CT_ITS ---
CT head/brain wo IV con CLINICAL INFORMATION: Reason for Exam Dizziness, headache COMPARISON: Prior head CT 05/23/2021. TECHNIQUE: Department standard protocol. This CT examination was performed using dose optimization techniques as appropriate, variously including the following: *Automated exposure control *Adjustment of mA and/or kV according to patient size (this includes techniques or standardized protocols for targeted exams where dose is matched to indication/reason for exam; i.e. extremities or head) *Use of iterative reconstruction technique DLP: 564 mGy-cm FINDINGS: CEREBRAL HEMISPHERES: There is no evidence of intra-axial or extra-axial mass, hemorrhage or acute infarct. BRAIN PARENCHYMA: Normal christensen-white matter differentiation. SUBDURAL SPACE: No bleed. BASAL GANGLIA AND PINEAL GLAND: Unremarkable VENTRICLES: Symmetric and normal in size. CEREBELLUM AND BRAINSTEM: No space-occupying mass, hemorrhage or acute infarct. CEREBELLOPONTINE ANGLES: No lesion found. ORBITS: No intraorbital mass. VESSELS: Unremarkable SKULL BASE: Unremarkable INCLUDED SINUSES AT SKULL BASE: Clear SKULL AND SKIN: No fracture or bone lesion found. CT/CT head/brain wo IV con IMPRESSION: No CT evidence of intracranial space-occupying mass, bleed or infarct.
[2022-07-03 09:58] VITALS: BP 159/53; PULSE 70; RESP 16; O2SAT 96; BMI 25.7
--- NOTE | 2022-07-03 11:01 | ED.GENADULT ---
HPI - General Adult General Chief complaint: Dizziness Stated complaint: ear pain dizzy Time Seen by Provider: 07/03/22 10:39 Source: RN notes reviewed and old records reviewed Mode of arrival: ambulatory Limitations: no limitations History of Present Illness HPI narrative: 71-year-old female with past medical history of sinusitis, allergic rhinitis, dyslipidemia, osteoporosis is here today for complaining right ear pain, pressure, occasional dizziness. Patient was treated with antibiotics for sinus pressure cefuaxime and had severe stomach cramping and diarrhea. Patient states that she stopped after taking it for couple days. Few days later patient was seen at urgent care and was diagnosed with right otitis media. Was placed on Zithromax. Patient continues to have right ear pain. Denies having sinus pain or headache. Dizziness comes and goes without feeling like the room is spinning. Patient denies presyncope or syncope. Denies any CP, PND, SOB with or without exertion. Patient reports that she also was given Claritin. Patient does have seasonal allergies. She reports that she feels like her eyes are puffy without pressure, Onset (ago): day(s) Related Data Home Medications Medication Instructions Recorded Confirmed ascorbate calcium (vitamin C) 500 500 mg PO DAILY 04/20/20 06/19/22 mg tablet Previous Rx's Medication Instructions Recorded fluticasone propionate 50 2 spray intranasal DAILY PRN nasal 05/02/21 mcg/actuation nasal congestion 30 days #16 grams spray,suspension cholecalciferol (vitamin D3) 50 50 mcg PO DAILY 30 days #30 caps 10/27/21 mcg (2,000 unit) capsule cefuroxime axetil 500 mg tablet 500 mg PO BID 10 days #20 tabs 06/02/22 azithromycin 250 mg tablet See Rx Instructions PO .COMPLEX #6 06/19/22 (Zithromax Z-Junior) tabs loratadine 10 mg tablet 10 mg PO DAILY PRN allergy 06/19/22 symptoms #30 tabs amoxicillin 875 mg-potassium 1 tab PO BID #14 tabs 07/03/22 clavulanate 125 mg tablet cetirizine 10 mg tablet (24Hour 10 mg PO DAILY PRN allergy 07/03/22 Allergy) symptoms #20 tabs Allergies Allergy/AdvReac Type Severity Reaction Status Date / Time Sulfa (Sulfonamide Allergy Intermediate Swollen Verified 06/19/22 11:02 Antibiotics) red eyes cefuoxime Allergy Mild Stomach Uncoded 06/19/22 11:04 Upset Review of Systems Review of Systems: Constitutional : No Weight loss, No Fever, No Chills, No Night Sweats, No Fatigue, No Malaise ENT/Mouth : No Hearing loss, Ear Pain, Nasal Congestion, No Sinus Pain, No Hoarseness, No sore throat, Rhinorrhea, No Swallowing Difficulty Eyes: No Eye Pain, No Swelling, No Redness, No Foreign Body, No Discharge, No Vision Changes Cardiovascular : No Chest Pain, No SOB, No Dyspnea on Exertion, No Orthopnea, No Edema, No Palpitations Respiratory : No Cough, No Sputum, No Wheezing, No Smoke Exposure, No Dyspnea Gastrointestinal : No Nausea, No Vomiting, No Diarrhea, No Constipation, No abdominal Pain, No Hematochezia, No Melena Neuro : No Weakness, No Numbness, No Paresthesias, No Loss of Consciousness, No Dizziness, No Headache Yes all other systems are reviewed and are negative PMFSH Past Medical History Medical History Age related osteoporosis Allergic rhinitis Dyslipidemia Exertional dyspnea Left atrial dilatation Orthostatic lightheadedness Osteoarthritis Overweight (BMI 25.0-29.9) Pain and swelling of left lower leg Pain in joint of left hand Pure hypercholesterolemia Swelling of joint of left hand Vitamin D deficiency Surgical History History of cardiac cath Hx of cataract removal with insertion of prosthetic lens (~12/2014) Hx of section Status post cardiac catheterization Family History Family History Mother Prediabetes Hyperlipidemia Hypertension Father No problems noted. Social History Social History Housing: House Alcohol intake: current Alcohol intake frequency: holidays/special occasions only Patient Tobacco Use Status: Never used Tobacco Smoked in Last 30 Days: No Second Hand Smoke Exposure: Yes Use of substances other than those prescribed or required for medical reasons: No Advance Directives: No Advance Directives Information Provided: Yes service: No Current occupational status: retired Cognitive needs: No Hearing needs: Yes Vision needs: No Physical Exam ED Vital Signs: Vital Signs - 24 hr 07/03/22 09:58 01/02/23 11:33 07/03/22 12:42 Temperature 98.8 F Pulse Rate 70 96 53 Respiratory Rate 16 14 18 Blood Pressure 159/53 H 168/71 H 147/66 H Pulse Oximetry 96 97 99 Oxygen Delivery Method Room Air Room Air Room Air BMI result Body Mass Index 25.7 Const General: cooperative, healthy appearing, no acute distress, well developed and alert Nutritional Appearance: average body habitus Orientation/consciousness: patient oriented x3 Limitations: no limitations HENMT Head: Yes normal to inspection and Yes atraumatic Ears: hearing grossly normal bilaterally, external ears normal, TM normal on the left and TM abnormal (Right) dull General nose exam: Normal external nose present and Normal nares present Face and sinus: Yes normal facial exam, Yes sinuses nontender and Yes face symmetric Mouth: Normal oral and palatal mucosa present and oropharynx normal Throat: Yes posterior oropharynx normal and Yes tonsils normal Eyes General: appearance normal, both eyes and all related structures Neck Neck: Yes normal visual inspection, Yes full ROM, Yes trachea midline and Yes supple Resp Effort & Inspection: normal respiratory effort Auscultation: clear to auscultation bilaterally GI Inspection: Yes normal to inspection and No distended Palpation (GI): Soft to palpation, nontender and no guarding Auscultation: normal bowel sounds Neuro General: patient oriented x3 Cognition (Neuro): normal cognition Gait exam (Neuro): Normal gait present Motor exam (neuro): 5/5 motor strength present throughout Extrem General: Yes normal to inspection Course Course Course Narrative: 71-year-old female with past medical history of sinusitis, allergic rhinitis, dyslipidemia, osteoporosis is here today for complaining right ear pain, pressure, occasional dizziness. Patient was treated with antibiotics for sinus pressure cefuaxime and had severe stomach cramping and diarrhea. Patient states that she stopped after taking it for couple days. Few days later patient was seen at urgent care and was diagnosed with right otitis media. Was placed on Zithromax. Patient continues to have right earache. Patient denies presyncope or syncope. Denies any CP, PND, SOB with or without exertion. Patient reports that occasionally she will feel dizzy without feeling like room is spinning. Right ear otitis media. Negative for sinus tenderness. Patient reports to be feeling dizzy with occasional headache. Will send patient for CT scan. Patient reports that amoxicillin allergies not really true allergy. Patient reports to have loose stools after taking it. I will give her Augmentin. Reevaluation(s) Reevaluation #1: CT scan negative for any acute processes. Patient tolerated Augmentin well. She will be discharged home on Augmentin for 7 days. I will give her script for Zyrtec. Patient will follow-up with her PCP. Medications Administered Discontinued Medications Generic Name Dose Route Start Last Admin Trade Name Jensenq PRN Reason Stop Dose Admin Amoxicillin/Clavulanate Potassium 875 mg 07/03/22 11:09 07/03/22 11:35 Amoxicillin/Potassium Clav 875 Mg Tablet PO 07/03/22 11:10 875 mg ONCE ONE Administration Medical Decision Making Differential Diagnosis Differential Diagnoses: The differential diagnosis associated with the presentation includes Migraine, otitis media, sinusitis, Lab Data MDM Lab Attestation statement: I reviewed the patient's lab results. Labs: Lab Results 07/03/22 Range/Units 11:27 Influenza Type A (PCR) NEGATIVE (Negative) Influenza Type B (PCR) NEGATIVE (Negative) RSV RNA Qual (PCR) NEGATIVE (Negative) SARS-CoV-2 RNA (RT-PCR) NEGATIVE (Negative) Radiology Impression Discussion of test interpretation with radiology: I have reviewed the radiologist's reading. Radiologist Impression: HEAD CT FINDINGS: ? CEREBRAL HEMISPHERES: There is no evidence of intra-axial or extra-axial mass, hemorrhage or acute infarct. BRAIN PARENCHYMA: Normal christensen-white matter differentiation. SUBDURAL SPACE: No bleed. BASAL GANGLIA AND PINEAL GLAND: Unremarkable VENTRICLES: Symmetric and normal in size. CEREBELLUM AND BRAINSTEM: No space-occupying mass, hemorrhage or acute infarct. CEREBELLOPONTINE ANGLES: No lesion found. ORBITS: No intraorbital mass. VESSELS: Unremarkable SKULL BASE: Unremarkable INCLUDED SINUSES AT SKULL BASE: Clear SKULL AND SKIN: No fracture or bone lesion found. CT/CT head/brain wo IV con IMPRESSION: No CT evidence of intracranial space-occupying mass, bleed or infarct. ? External Record Review External record reviewed: Office record and Primary care record Prescription Management I considered prescription management with: Antibiotic Discharge Plan Discharge Clinical Impression: Sinusitis Qualifiers: Sinusitis location: frontal Chronicity: chronic Qualified Code(s): J32.1 - Chronic frontal sinusitis Right otitis media Qualifiers: Otitis media type: allergic Chronicity: acute Recurrence: recurrent Qualified Code(s): H65.114 - Acute and subacute allergic otitis media (mucoid) (sanguinous) (serous), recurrent, right ear Patient Disposition: Home, Self-Care Instructions: Ear Infection (ED) Additional Instructions: You were seen here today for right ear pain, pressure and dizziness. You CT scan was negative for any acute processes. You do have a right ear infection. You will be put on Augmentin. Please make sure you finish all of your medication. You might have diarrhea when you are taking the antibiotic. You may take probiotic or have yogurt. Please follow-up with your primary care doctor next week. You may return to emergency department if your symptoms get worse or if you experience any additional concerning symptoms. Prescriptions: New amoxicillin-pot clavulanate 875-125 mg tablet 1 tab PO BID Qty: 14 0RF cetirizine [24Hour Allergy] 10 mg tablet 10 mg PO DAILY PRN (Reason: allergy symptoms) Qty: 20 0RF No Action fluticasone propionate 50 mcg/actuation spray,suspension 2 spray intranasal DAILY PRN (Reason: nasal congestion) 30 Days Qty: 16 12RF Rx Instructions: administer into each nostril cholecalciferol (vitamin D3) 50 mcg (2,000 unit) capsule 50 mcg PO DAILY 30 Days Qty: 30 11RF azithromycin [Zithromax Z-Junior] 250 mg tablet See Rx Instructions PO .COMPLEX Qty: 6 0RF Rx Instructions: For 250 mg dose pack: take 500 mg today (day 1), then 250 mg for 4 days (days 2-5) PO loratadine 10 mg tablet 10 mg PO DAILY PRN (Reason: allergy symptoms) Qty: 30 0RF cefuroxime axetil 500 mg tablet 500 mg PO BID 10 Days Qty: 20 0RF ascorbate calcium (vitamin C) 500 mg tablet 500 mg PO DAILY Referrals: Bernabe Peterson MD [Primary Care Provider] - Interventions: ED Discharge Assessment Last Done: 07/03/22 13:41 Discharge Date/Time: 07/03/22 13:41
[2022-07-03 11:33] VITALS: BP 168/71; PULSE 96; RESP 14; O2SAT 97
[2022-07-03] MEDS: Amoxicillin/Potassium Clav 875 MG TABLET PO (11:35)
[2022-07-03 12:40] LABS: Influenza A PCR NEGATIVE (Negative); Influenza B PCR NEGATIVE (Negative); Resp Syncy Virus RNA Qual PCR NEGATIVE (Negative); SARS COV2 PCR INHOUSE NEGATIVE (Negative)
[2022-07-03 12:42] VITALS: BP 147/66; PULSE 53; RESP 18; TEMP 37.1; O2SAT 99
== END 2022-07-03 13:41 | disposition home or self-care (01) ==
PROVIDERS: Nurse Practitioner Family; Emergency Provider Student in an Organized Health Care Education/Training Program; PCP Internal Medicine
DX: J32.1 Chronic frontal sinusitis (principal); H65.114 Acute and subacute allergic otitis media (mucoid) (sanguinous) (serous), recurrent, right ear; Z20.828 Contact with and (suspected) exposure to other viral communicable diseases
CPT/HCPCS: 0241U; 70450; 99284

== ENCOUNTER → 2022-10-05 15:29 | Outpatient (BNVA) | payer MEDICARE, SELFPAY | PROVIDERS: PCP Internal Medicine; Visit Provider Nurse Practitioner Family | DX: R00.2 Palpitations (principal); I51.7 Cardiomegaly | CPT/HCPCS: 93005; 99212 ==

== ENCOUNTER → 2022-10-26 09:51 | Outpatient (REF) | payer MEDICARE, SELFPAY ==
--- NOTE | 2022-10-26 09:55 | HM_ITS ---
* Total monitoring time about 4 days. * Underlying rhythm is sinus. Average ventricular rate 60/Min. Range 38 to 111/Min. * About 58% of the time, rate < 60/Min. * Rare supraventricular ectopy. Minimal burden. Very brief runs noted. Longest 14 beats. * Rare ventricular ectopy. * No significant pauses or AV blocks. * Patient marker used 10 times, in association with supraventricular ectopy, ventricular ectopy, sinus bradycardia, sinus rhythm. * Diary events including shortness of breath, flutter, lightheadedness, nervous,, rapid/fast heartbeat correlate with patient markers. MTDD
--- NOTE | 2022-10-26 09:55 | CA_ITS ---
Transthoracic Echocardiogram Patient (Last, First, Middle): Yaritza Reich A Gender: Female Date of : 1950 Age: 71 Procedure Date: 10/26/2022 Procedure Type: Transthoracic Echocardiogram Location: OP Height: 157. cm Weight: 58.97 kg BSA: 1.59 m2 Heart Rate: 54 bpm BP: 140 / 80 mmHg Manager Visual: ALISA Hoffman MD: Sandra De Anda DEPARTMENT SALES MANAGER-C Sybase Developer: Tomer Morales MD Symptoms: I51.7 - Cardiomegaly Study Quality: Good ECG Rhythm: Bradycardia Conclusions: - 1. Normal LV systolic function with LVEF of 60 65% with impaired relaxation filling pattern 2. Mildly dilated left atrium 3. Normal cardiac valvular Dopplers next 4. Normal RV systolic pressure 5. No gross pericardial effusion Findings Left Ventricle Normal left ventricular size, thickness, and systolic function. The visually estimated ejection fraction is between 60-65%. Spectral Doppler is indicative of an impaired relaxation filling pattern. E/E prime ratio is between 8 and 15 consistent with indeterminate filling pressures. Peak GLS is -18.3%, which is within normal limits. Right Ventricle Normal right ventricular cavity size and systolic function. Atria The left atrium is mildly dilated. There is no evidence of interatrial shunt. The right atrium is normal in size. Aortic Valve The aortic valve structure and function is likely normal. There is no evidence of calcification of the aortic valve. There is no aortic valve stenosis. There is no aortic valve regurgitation. Mitral Valve There is mild anterior and posterior mitral leaflet thickening. There is trace mitral valve regurgitation. There is no mitral valve stenosis. Pulmonic Valve The pulmonic valve is likely normal. There is trace pulmonic valve regurgitation. Tricuspid Valve Normal tricuspid valve structure. There is trace tricuspid valve regurgitation. The right ventricular systolic pressure is normal. There is no evidence of pulmonary hypertension. Great Vessels All visible segments of the aorta are normal in size. The pulmonary artery was not well visualized. Venous The inferior vena cava is normal in size and collapses greater than 50% with inspiration. Pericardium/Pleural There is no evidence of pericardial effusion. Prior Study Comparison Changes noted compared to prior study dated: 03/30/2021. LA size has reduced Measurements 2D Linear Measurements IVSd: 0.98 0.6-0.9/0.6-1.0 cm LVIDd: 4.58 3.9-5.3/4.2-5.9 cm LVIDd Index: 2.88 2.4-3.2/2.2-3.1 cm/m2 LVIDs: 2.82 2.0-3.6 cm LVPWd: 1.04 0.7-1.1 cm LA Diam: 2.80 2.7-3.8/3.0-4.0 cm LAIDs Index: 1.76 1.5-2.3 cm/m2 LV Mass: 199.49 67-162/88-224 g LV Mass Index: 125.46 43-95/49-115 g/m2 LVOT Diam: 1.90 3.0+(-)1.3 cm 2D Systolic Function EF 4C: 55.70 >55% EF 2C: 61.10 >55% EF BiP: 58.00 >55% Mitral Valve MV Pk E: 0.69 MV PK A: 0.76 MV Decel Time: 259.00 E/A: 0.90 E'Lateral: 6.92 E'Medial: 4.56 E/E' Med: 15.10 E/E' Lat: 10.00 PHT: 76.00 MVA PHT: 2.89 Decel [place]: 2.66 Aortic Valve AoV Pk Gurmeet: 1.23 AoV Mn Gurmeet: 0.76 AoV VTI: 0.23 AoV Pk Grad: 6.00 Aov Mn Grad: 3.00 RACHEL Cont.VTI: 2.79 LVOT LVOT Pk Gurmeet: 1.18 LVOT Mn Gurmeet: 0.76 LVOT VTI: 0.23 LVOT Pk Grad: 6.00 LVOT Mn Grad: 3.00 LVOT Diam: 1.90 LVOT Area: 2.84 Diastolic Function MV Pk E: 0.69 MV Pk A: 0.76 E/A: 0.90 E'Medial: 4.56 E/E' Med: 15.10 E' Laterial: 6.92 E/E' Lat: 10.00 Right Ventricle TAPSE (mm): 18.70 TVS' Gurmeet: 13.00 Tricuspid Valve TR Pk Gurmeet: 1.19 TR Pk Grad: 6.00 RA Press: 3.00 RVSP: 9.00 Great Vessels Aorta Sinus of Valsalva: 3.00 2.0-3.5 cm Ao Asc: 3.60 2.1-3.4 cm Pulmonary Valve PV Pk Gurmeet: 1.03 Peak PV Grad: 4.00 Updated in Other Vendor System with Status of Final Tomer Morales MD electronically signed on 10/26/2022 12:35:58 PM with status of Final
== END ==
LOC: HO.CARD 09:51
PROVIDERS: PCP Internal Medicine; Visit Provider Nurse Practitioner Family
DX: R00.2 Palpitations (principal); I51.7 Cardiomegaly
CPT/HCPCS: 93242; 93306; 93356

== ENCOUNTER 2022-11-13 07:24 | Outpatient (REF) | payer MEDICARE, SELFPAY ==
[2022-11-13 07:34] LABS: MANUAL DIFF FLAG NO
[2022-11-13 07:47] LABS: Basophils Percent Auto 0.5 % (0-2); Eosinophils Absolute Auto 0.2 X10*3/uL (0.0-0.4); Eosinophils Percent Auto 3.5 % (0-4); Imm Gran Abs Auto 0.01 X10*3/uL (0.00-0.03); Imm Gran Pct Auto 0.2 % (0.0-0.4); Lymphocytes Absolute Auto 2.2 X10*3/uL (1.2-4.9); Lymphocytes Percent Auto 35.6 % (20-40); Mean Corpuscular HGB Conc 34.1 g/dl (31.0-35.0); Mean Corpuscular Hemoglobin 31.5 pg (27.0-33.0); Mean Corpuscular Volume 92.1 fL (80.0-98.0); Mean Platelet Volume 11.7 fL (9.4-12.3); Monocytes Absolute Auto 0.5 X10*3/uL (0.1-1.2); Monocytes Percent Auto 8.3 % (2-11); Neutrophils Absolute Auto 3.2 x10*3/uL (2.0-8.3); Neutrophils Percent Auto 51.9 % (45-73); Platelet Count 266 X10*3/uL (160-400); Red Blood Count 4.45 X10*6/uL (4.20-5.50); Red Cell Distribution Width 12.8 % (11.0-16.0); White Blood Count 6.2 X10*3/uL (4.8-10.8)
[2022-11-13 08:19] LABS: Alanine Aminotransferase 8 U/L (0-31); Albumin Level 4.1 g/dL (3.5-5.0); Alkaline Phosphatase 73 U/L (39-117); Anion Gap 10 (12-20); Aspartate Amino Transferase 17 U/L (5-31); Bilirubin Total 0.8 mg/dL (0.0-1.0); Blood Urea Nitrogen 12 mg/dL (9-16); Calcium 9.5 mg/dL (8.4-10.2); Carbon Dioxide 27 mmol/L (22-29); Chloride 107 mmol/L (96-108); Cholesterol 215 mg/dL; Estimated Glomerular Filt Rate > 60; Glucose Fasting 94 mg/dL (60-99); HDL Cholesterol 69 mg/dL; LDL Cholesterol Calculated 131 mg/dl; Potassium 4.3 mmol/L (3.3-5.1); Sodium 140 mmol/L (135-145); Total Protein 6.7 g/dL (6.5-8.0); Triglycerides 79 mg/dL
[2022-11-13 08:36] LABS: TSH reflex Free T4 2.36 uIU/mL (0.32-4.0); Vitamin D 25-OH Total 43.7 ng/mL (>30)
[2022-11-13 09:44] LABS: Appearance Urine Clear; Color Urine Yellow; Glucose Urine UA Negative (Negative); Leukocyte Esterase Urine Small (1+) (Negative); Nitrite Urine Negative (Negative); PH 6.5 (5.0-9.0); Specific Gravity - Urine 1.015 (1.005-1.025); UMIC TRIGGER UACC YES; Urine Blood Negative (Negative); Urine Ketones Negative (Negative); Urine Protein Negative (Neg-Trace)
[2022-11-13 09:54] LABS: Bacteria Urine None Seen (None Seen); Hyaline Casts Urine 0-2 /LPF (0-2); RBC Urine 0-2 /HPF (0-2); Squamous Epithelial Cell Urine 0-2 /HPF (0-2); UACC Culture Trigger YES; WBC Urine 0-5 /HPF (0-5)
== END 2022-11-13 07:25 | disposition home or self-care (01) ==
LOC: HO.LAB 07:24
PROVIDERS: PCP Internal Medicine; Visit Provider Internal Medicine
DX: I10 Essential (primary) hypertension (principal); R30.0 Dysuria; E55.9 Vitamin D deficiency, unspecified; E78.00 Pure hypercholesterolemia, unspecified
CPT/HCPCS: 36415; 80053; 80061; 81001; 82306; 84443; 85025; 87086

== ENCOUNTER 2022-11-25 10:01 | Outpatient (REF) | payer MEDICARE, SELFPAY | END 2022-11-25 10:02 | disposition home or self-care (01) | LOC: HO.LAB 10:01 | PROVIDERS: Visit Provider Nurse Practitioner Family | DX: R39.9 Unspecified symptoms and signs involving the genitourinary system (principal) | CPT/HCPCS: 87086 ==

== ENCOUNTER → 2022-11-30 14:46 | Outpatient (BNVA) | payer MEDICARE, SELFPAY | PROVIDERS: PCP Internal Medicine; Referring Provider Internal Medicine; Visit Provider Nurse Practitioner Family | DX: I51.7 Cardiomegaly (principal); I49.1 Atrial premature depolarization; R00.2 Palpitations; Z98.890 Other specified postprocedural states | CPT/HCPCS: 99212 ==

== ENCOUNTER → 2022-12-20 12:49 | Outpatient (BNVA) | payer MEDICARE, SELFPAY | PROVIDERS: PCP Internal Medicine; Visit Provider Urology | DX: R39.9 Unspecified symptoms and signs involving the genitourinary system (principal); R10.9 Unspecified abdominal pain; Z87.442 Personal history of urinary calculi | CPT/HCPCS: 99202 ==

== ENCOUNTER 2023-02-05 08:54 | Outpatient (REF) | payer MEDICARE, SELFPAY ==
--- NOTE | ~2023-02-05 | CT_ITS ---
EXAMINATION: CT ABDOMEN AND PELVIS WITHOUT CONTRAST CLINICAL INFORMATION: Personal history of urinary tract calculi. COMPARISON: [facility] 12/09/2019. TECHNIQUE: Multidetector volumetric imaging was performed from the superior aspect of the liver through the pubic symphysis. Sagittal and coronal reformatted images were obtained on the technologist's workstation. This CT examination was performed using dose optimization techniques as appropriate, variously including the following: *Automated exposure control *Adjustment of mA and/or kV according to patient size (this includes techniques or standardized protocols for targeted exams where dose is matched to indication/reason for exam; i.e. extremities or head) *Use of iterative reconstruction technique DLP: 330 mGy-cm FINDINGS: LUNG BASES: The visualized lung bases are unremarkable. LIVER, GALLBLADDER, AND BILIARY TREE: The liver is normal in size, shape, and attenuation. No focal hepatic lesion or biliary ductal dilatation is present. The gallbladder is unremarkable with no evidence of radiopaque gallstones, gallbladder wall thickening, or obvious pericholecystic inflammatory changes. PANCREAS: Unremarkable. SPLEEN: Unremarkable. ADRENAL GLANDS: Unremarkable. KIDNEYS AND URETERS: The kidneys are normal in size, shape, and attenuation. No hydronephrosis, hydroureter, or calculi seen. No perinephric stranding. BLADDER: Unremarkable. GASTROINTESTINAL TRACT: There is a large hiatal hernia present with a good portion of the stomach present in the chest. There is sigmoid diverticular changes without diverticulitis. The small and large bowel are otherwise unremarkable. The appendix is unremarkable. ABDOMINAL WALL: No significant hernia is appreciated. There is a tiny periumbilical hernia seen containing only fat. LYMPH NODES: No retroperitoneal lymphadenopathy. VASCULAR: Unremarkable. PELVIC VISCERA: A retroflexed uterus is present. Calcified uterine fibroids are most likely present. An abnormal adnexal mass is not seen. No free intraperitoneal fluid noted. OSSEOUS STRUCTURES: Degenerative changes are present in the spine from T11 through L2. CT/CT abdomen pelvis wo IV con IMPRESSION: 1.No renal calculi are seen. 2. Incidental note made of large hiatal hernia, sigmoid diverticulosis, calcified uterine fibroids and degenerative changes in the spine. Fleischner guidelines were followed.
== END 2023-02-05 08:55 | disposition home or self-care (01) ==
LOC: HO.CT 08:54
PROVIDERS: PCP Internal Medicine; Visit Provider Urology
DX: R10.9 Unspecified abdominal pain (principal); R30.0 Dysuria; Z87.442 Personal history of urinary calculi
CPT/HCPCS: 74176

== ENCOUNTER 2023-02-19 09:37 | Outpatient (AMB) | payer MEDICARE, SELFPAY ==
--- NOTE | 2023-02-19 02:11 | A.OFFVIS_ITS ---
Intake Intake Visit Reasons: 2m/CT Intake Note: Patient presents today for a 2mo follow-up on with CT Scan Results: Meds- None Allergies to Antibiotic- Cefuroxime & Sulfa Blood Thinner- None Magnetic Prospecting Supervisor Required: No Accompanied by: Self / Same As Patient Allergies Sulfa (Sulfonamide Antibiotics) Allergy (Intermediate, Verified 02/19/23 10:05) Swollen red eyes cefuroxime Adverse Reaction (Intermediate, Uncoded 02/19/23 10:05) Stomach Upset HPI HPI Comments History of Present Illness Details Yaritza is a 72-year-old female who presents today to the office for a 2-month follow up with CAT scan results. 02/19/2023? She was last seen by me on 12/20/2022 for urinary tract symptoms. CTAP stone protocol without IV contrast was ordered, and was advised to follow up after 2 months at that time. I reviewed the CAT scan of the abdomen/pelvis without contrast results from 02/05/2023 revealed no renal calculi are seen. Incidental note made of large hiatal hernia, sigmoid diverticulosis, calcified uterine fibroids and degener ative changes in the spine. She does report some sensation of urgency intermittently if she's placing her seat belt over her bladder area; however, she denies any urinary incontinence and she denies any UTI symptoms. She states that she is consuming adequate amount of fluids. History of kidney stones -- CT scan reviewed with the patient. No renal calculi noted. will follow up on a PRN basis. Patient encouraged to drink adequate fluids daily and low-sodium diet. Review of charts: Last visit: 12/20/2022: She is seen today for UTI symptoms. The patient states that her symptoms included right sided lower back pain with some urgency of urination and burning on urination.? She was seen in the walk in clinic and was started on Macrobid 100 mg twice a day for 5 days empirically pending urine culture. She states that the other day she noticed after urinating something was on the bottom of the toilet bowl which she thinks may be a kidney stone. She does give a history of kidney stones about 25 years ago. She states that the symptoms seemd to resolve after the incident . She denies urinary incontinence Will further evaluate the urinary tract with CTAP stone protocol.?? She takes vitamin C 500 mg QD and vitamin D3 50 mcg QD. Evaluation today: Blood: 10 Hans/uL, leukocytes: negative. Urine culture--11/13/22-- 10,000 to 50,000 cfu/ml mixed bacterial isael characteristic of urogenital contamination. Urine culture--11/25/22-- No growth. Plan: CTAP stone protocol without IV contrast was ordered. Follow-up after 2 months. 02/19/2023: Evaluation today?UA? Leukocytes: negative; blood: negative. 02/19/2023: Plan:CT scan reviewed with the patient. No renal calculi noted. will follow up on a PRN basis. Patient encouraged to drink adequate fluids daily and low-sodium diet.. PFSH Medical History Age related osteoporosis Allergic rhinitis Dyslipidemia Exertional dyspnea Left atrial dilatation Orthostatic lightheadedness Osteoarthritis Overweight (BMI 25.0-29.9) Pain and swelling of left lower leg Pain in joint of left hand Pure hypercholesterolemia Swelling of joint of left hand Vitamin D deficiency Surgical History History of cardiac cath Hx of cataract removal with insertion of prosthetic lens (~12/2014) Hx of section Status post cardiac catheterization Family History Mother Prediabetes Hyperlipidemia Hypertension Father No problems noted. Social History Housing: House Alcohol intake: current Alcohol intake frequency: holidays/special occasions only Patient Tobacco Use Status: Never used Tobacco e-Cigarette/Vaping Use: Never Used Second Hand Smoke Exposure: Yes service: No Current occupational status: retired Cognitive needs: No Hearing needs: Yes Vision needs: No Review of Systems Const All systems reviewed & are unremarkable except as noted in HPI and below Reports no additional complaints Eyes Reports no additional complaints ENT Reports no additional complaints Card Denies dyspnea Resp Denies cough and Denies dyspnea GI Reports no additional complaints Reports no additional complaints Musc Reports no additional complaints Skin/Breast Denies rash and Denies unusual bruising Neuro Reports no additional complaints Psych Reports no additional complaints Endo Reports no additional complaints Adelso/Lymph Reports no additional complaints Aller/Immun Reports no additional complaints Results AMB Urinalysis, Automated UA Leukoctes 0 Tobias/uL Last Edit by [facility] on 02/19/23 10:03 UA Nitrite Negative Last Edit by [facility] on 02/19/23 10:03 UA Urobilinogen 0.2 mg/dL Last Edit by [facility] on 02/19/23 10:0 3 UA Protein 0 mg/dL Last Edit by [facility] on 02/19/23 10:03 UA pH 6.0 Last Edit by [facility] on 02/19/23 10:03 UA Blood 0 Hans/uL Last Edit by [facility] on 02/19/23 10:03 UA Specific [place] 1.025 Last Edit by [facility] on 02/19/23 10: 03 UA Ketone Negative Last Edit by [facility] on 02/19/23 10:03 UA Bilirubin 0 mg/dL Last Edit by [facility] on 02/19/23 10:03 UA Glucose 0 mg/dL Last Edit by [facility] on 02/19/23 10:03 Results Reviewed Results Reviewed: Laboratory Last Values Urine pH (Auto) 6.0 02/19/23 09:54 Specific [place] (Auto) 1.025 02/19/23 09:54 Urine Protein (Auto) 0 mg/dL 02/19/23 09:54 Glucose (UA)(Auto) 0 mg/dL 02/19/23 09:54 Urine Ketones (Auto) Negative 02/19/23 09:54 Urine Blood (Auto) 0 Hans/uL 02/19/23 09:54 Urine Nitrite (Auto) Negative 02/19/23 09:54 Urine Bilirubin (Auto) 0 mg/dL 02/19/23 09:54 Urine Urobilinogen (Auto) 0.2 mg/dL 02/19/23 09:54 Leukocyte Esterase (Auto) 0 Tobias/uL 02/19/23 09:54 Date of Service: 02/05/23 EXAMINATION: CT ABDOMEN AND PELVIS WITHOUT CONTRAST? CLINICAL INFORMATION: Personal history of urinary tract calculi.? COMPARISON: [facility] 12/09/2019. FINDINGS: LUNG BASES: The visualized lung bases are unremarkable.? LIVER, GALLBLADDER, AND BILIARY TREE: The liver is normal in size, shape, and attenuation. No focal hepatic lesion or biliary ductal dilatation is present. The gallbladder is unremarkable with no evidence of radiopaque gallstones, gallbladder wall thickening, or obvious pericholecystic inflammatory changes.? PANCREAS: Unremarkable.? SPLEEN: Unremarkable.? ADRENAL GLANDS: Unremarkable.? KIDNEYS AND URETERS: The kidneys are normal in size, shape, and attenuation. No hydronephrosis, hydroureter, or calculi seen. No perinephric stranding. ? BLADDER: Unremarkable.? GASTROINTESTINAL TRACT: There is a large hiatal hernia present with a good portion of the stomach present in the chest. There is sigmoid diverticular changes without diverticulitis. The small and large bowel are otherwise unremarkable. The appendix is unremarkable.? ABDOMINAL WALL: No significant hernia is appreciated. There is a tiny periumbilical hernia seen containing only fat. LYMPH NODES: No retroperitoneal lymphadenopathy. VASCULAR: Unremarkable. PELVIC VISCERA: A retroflexed uterus is present. Calcified uterine fibroids are most likely present. An abnormal adnexal mass is not seen. No free intraperitoneal fluid noted.? OSSEOUS STRUCTURES: Degenerative changes are present in the spine from T11 through L2.? IMPRESSION: 1.No renal calculi are seen. ? 2. Incidental note made of large hiatal hernia, sigmoid diverticulosis, calcified uterine fibroids and degenerative changes in the spine Assessment & Plan Assessment & Plan (1) Personal history of kidney stones: Code(s): Z87.442 - Personal history of urinary calculi Plan CT scan reviewed with the patient. No renal calculi noted. will follow up on a PRN basis. Patient encouraged to drink adequate fluids daily and low-sodium diet. Orders: Orders AMB Urinalysis Automated Today Z13.9 - Encounter for screening, unspecified Patient Instructions: The patient had an opportunity to ask questions regarding treatment plan. All questions were answered. Imaging, Laboratory studies and physical exam results were discussed and reviewed in detail. No major barriers to understanding were identified. The patient expressed understanding and agreement with the above treatment plan.? ? ? The patient is aware they should contact our office by phone for worsening of their current condition or the appearance of new symptoms. Compliance is encouraged with any medications and followup testing that is ordered.? ? ? It is a privilege to be allowed the opportunity to participate in the urologic care of your patient. If you have any questions or concerns regarding treatment for the above conditions please do not hesitate to contact me. The office telephone contact is [phone].? ? ? This note is constructed in part using voice recognition software. While every effort has been made to ensure accuracy shearer screen measurer and trimmer errors may have been included.? ? ? Yours sincerely,? ? ? William Panda MD? ? Coding Level of Care Code Est Pt Level 3 (30770) Diagnoses Personal history of kidney stones Z87.442
== END 2023-02-19 11:12 | disposition home or self-care (01) ==
PROVIDERS: PCP Internal Medicine; Visit Provider Urology
DX: Z87.442 Personal history of urinary calculi (principal); Z13.9 Encounter for screening, unspecified
CPT/HCPCS: 99213

== ENCOUNTER → 2023-02-19 09:37 | Outpatient (BNVA) | payer MEDICARE, SELFPAY | PROVIDERS: PCP Internal Medicine; Visit Provider Urology | DX: Z87.442 Personal history of urinary calculi (principal) | CPT/HCPCS: 81003; 99212 ==

== ENCOUNTER 2023-06-12 10:34 | Outpatient (AMB) | payer MEDICARE, SELFPAY ==
[2023-06-12 10:46] VITALS: BP 106/70; PULSE 61; O2SAT 98; BMI 25.9
--- NOTE | 2023-06-12 10:46 | A.OFFPC_ITS ---
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 Accompanied by: Self / Same As Patient Allergies Sulfa (Sulfonamide Antibiotics) Allergy (Intermediate, Verified 09/09/23 23:43) Swollen red eyes cefuroxime Adverse Reaction (Intermediate, Uncoded 09/09/23 23:43) Stomach Upset Medication List - Last Reconciled 06/12/23 by Bernabe Peterson MD ascorbate calcium (vitamin C) 500 mg PO DAILY cetirizine (24Hour Allergy) 10 mg PO DAILY PRN cholecalciferol (vitamin D3) 50 mcg PO DAILY 90 days fluticasone propionate 50 mcg/actuation 2 sprays intranasal DAILY PRN 30 days Tobacco use date assessed: 06/12/23 Fall risk assessment: No Falls in past year Last assessed Fall Risk: 06/12/23 Dental Screening Dental Screen Date: 06/12/23 Did you have a dental visit in the last 12 months?: No Did you have a dental problem in the last 6 months where you did not have access to dental care?: No Was dental information given to patient?: No HPI osteoporosis, hyperlipidemia HPI Details Patient comes in today for her follow up visit Relates that she first had an episode of a stiff neck for a few days back in April 2023 although she does not remember how she ended up with her neck symptoms back then States that she was applying a heating pad over the back of her neck regularly for several days and was also massaging the sore area on her neck regularly and her neck pain gradually subsided and cleared up but they have been recurring on and off since Patient also reports feeling lightheaded at times, and notes that these episodes of lightheadedness are often associated with nausea and tend to be triggered when she is moving around too quickly and with increased activity lately States that other than the above complaints, she had a good summer with very little issues or problems otherwise She denies any headaches Denies any chest pains, no SOB No vomiting, no abdominal pain and no change in bowel habits noted Was not able to get her follow up labs done yet - states that she will go and get them done after her visit today [facility] Medical History (Updated 09/10/23 @ 01:58 by Bernabe Peterson MD) Sick sinus syndrome Atrial fibrillation with rapid ventricular response Atrial fibrillation History of transesophageal echocardiography (ELIGIO) Left atrial dilatation Orthostatic lightheadedness Pain and swelling of left lower leg Exertional dyspnea Swelling of joint of left hand Pain in joint of left hand Overweight (BMI 25.0-29.9) Allergic rhinitis Pure hypercholesterolemia Osteoarthritis Dyslipidemia Vitamin D deficiency Age related osteoporosis Surgical History (Updated 09/10/23 @ 00:32 by Bernabe Peterson MD) History of permanent cardiac pacemaker placement (~09/01/23) Status post cardiac catheterization History of cardiac cath Hx of cataract removal with insertion of prosthetic lens (~12/2014) Hx of section Family History Mother Prediabetes Hyperlipidemia Hypertension Father No problems noted. Social History Household Members: Spouse Housing: House Do you presently have visiting nurse or other home services: No Alcohol intake: current Alcohol intake frequency: does not drink Patient Tobacco Use Status: Never used Tobacco e-Cigarette/Vaping Use: Never Used Second Hand Smoke Exposure: Yes service: No Current occupational status: retired Cognitive needs: No Hearing needs: Yes Vision needs: No Questionnaire PHQ-9 Over the last 2 weeks, how often have you been bothered by any of the following problems? 1. Little interest or pleasure in doing things: not at all 2. Feeling down, depressed, or hopeless: not at all 3. Trouble falling or staying asleep, or sleeping too much: not at all 4. Feeling tired or having little energy: not at all 5. Poor appetite or overeating: not at all 6. Feeling bad about yourself - or that you are a failure or have let yourself or your family down: not at all 7. Trouble concentrating on things, such as reading the newspaper or watching television: not at all 8. Moving or speaking so slowly that other people could have noticed. Or the opposite - being so fidgety or restless that you have been moving around a lot more than usual: not at all 9. Thoughts that you would be better off or of hurting yourself in some way: not at all Total score: 0 Depression Screening Interpretation: Negative Depression Screening Done: Yes 28943 - PHQ-9 Billing: Yes Source: Developed by Drs. Al Amato, Nathaly Allison, Yvan Wu and colleagues, with an educational mindy from [employer]. Thrive Questionnaire Date Thrive assessed: 06/12/23 I am a: Patient What is your living situation today?: I have a steady place to live Within the past 12 months, did the food you bought not last and you didn't have the money to get more?: Never true Within the past 12 months, did you worry whether your food would run out before you got money to buy more?: Never true Do you have trouble paying for medicines?: No Do you have trouble getting transportation to medical appointments?: No Do you have trouble paying your heating and electricity bill?: No Do you have trouble taking care of your child, family member or friend?: No Do you have trouble with day-to-day activities such as bathing, preparing meals, shopping, managing finances, etc.?: No Are you currently unemployed and looking for a job?: No Are you interested in more education?: No Please select the resources that you would like help with: None Currently or been in a relationship where the following occur: no concerns reported AUDIT C Alcohol Use Questionnaire (AUDIT-C) 1. How often do you have a drink containing alcohol?: Monthly or less 2. How many drinks containing alcohol do you have on a typical day when you are drinking?: 1 or 2 Total Score: 1 Score Reviewed/Action Taken: Yes KEYON-7 AMB Questionnaire KEYON-7 Date KEYON - 7 assessed: 06/12/23 Feeling nervous, anxious, or on edge: 0 = Not at all Not being able to stop or control worryin = Not at all Worrying too much about different things: 0 = Not at all Trouble relaxin = Not at all Being so restless that it is hard to sit still: 0 = Not at all Becoming easily annoyed or irritable: 0 = Not at all Feeling afraid as if something awful might happen: 0 = Not at all Total KEYON-7 score (0-4 normal; 5-9 mild; 10-14 moderate; 15-21 severe): 0 Source: Developed by Drs. Al Amato, Nathaly Allison, Yvan Wu and colleagues, with an educational mindy from [employer]. Review of Systems Const Denies fatigue, Denies fever(s) and Denies headache(s) ENT Denies dysphagia, Reports dizziness (on and off lightheadedness associated with nausea - see HPI), Denies otalgia, Denies headache(s), Reports neck pain (recurrent stiffness of her neck lately), Denies odynophagia, Denies sinus pain and Denies sore throat Card Denies chest pain, Denies palpitations and Denies dyspnea Resp Denies cough and Denies dyspnea GI Denies abdominal pain, Denies constipation, Denies dysphagia, Denies heartburn, Denies diarrhea, Reports nausea (on and off, associated with her episodes of lightheadedness), Denies odynophagia and Denies vomiting Denies hematuria, Denies difficulty voiding, Denies nocturia, Denies dysuria and Denies urinary urgency Musc Denies back pain, Denies arthralgias and Reports neck pain (recurrent stiffness of her neck lately) Skin/Breast Denies rash Neuro Reports dizziness (on and off lightheadedness associated with nausea - see HPI) and Denies headache(s) Endo Denies fatigue and Denies palpitations Physical exam (Primary Care) Vital Signs: Last Vital Signs Pulse 61 06/12/23 10:46 BP 128/80 06/12/23 11:16 Pulse Ox 98 06/12/23 10:46 Oxygen Delivery Method Room Air 06/12/23 10:46 BMI result Body Mass Index 25.9 Tobacco/Smoking Status: Tobacco use Status Tobacco use date assessed 06/12/23 06/12/23 10:53 Patient Tobacco Use Status Never used Tobacco 06/12/23 10:53 e-Cigarette/Vaping Use Never Used 06/12/23 10:53 PHQ-9: PHQ-9 Score PHQ-9: Total score 0 06/12/23 11:14 Depression Screening Interpretation: Negative Thrive Assessment: Date of Thrive Assessment Date Thrive assessed 06/12/23 06/12/23 10:53 Currently or been in a relationship where the following occur: no concerns reported Const General: no acute distress and alert HENMT Ears: TM's normal bilaterally and EAC's normal Throat: Yes posterior oropharynx normal and Yes tonsils normal (no TP congestion) Neck Neck: Yes no lymphadenopathy and Yes supple Thyroid: Thyroid normal Resp Auscultation: clear to auscultation bilaterally, no rales and no wheezes Cardio Rate: regular rate Rhythm: regular rhythm Heart sounds: no murmurs GI Palpation (GI): Soft to palpation and nontender Auscultation: normal bowel sounds Extrem General: Yes no clubbing, cyanosis or edema Assessment and Plan Assessment & Plan (1) Exertional dyspnea: Comment: Dyspnea on exertion is only when she goes outdoors on walks fast, or tries to climb stairs in a hurry. It is nonspecific and may be due to some degree of deconditioning of the respiratory muscles. As per pulmonary function test she has evidence of mild small airway obstructive disorder, without much response to bronchodilator therapy. This may be due to some degree of pulmonary emphysema. For treatment purposes, I discussed pros and cons with the patient, and we do not feels that she needs to start on any LABA or ICS. agents . She is instructed to do deep breathing exercises about 3 times every day, which are explained to her. Will be glad to see her on once a year and re-evaluate the lung function. And she is also advised to call us if there is any increase in the exertional dyspnea. Code(s): R06.00 - Dyspnea, unspecified Plan: Mostly resolved - states that her respiratory symptoms have improved with regular deep breathing exercises and increasing activity level Work ups done over the past couple of years, including echocardiogram, EKG, PFTs and cardiac cath, have all come back normal except for a mildly dilated LA of unknown etiology Follow up with pulmonary as scheduled According to pulmonary, does not need to use any inhalers at all (2) Age related osteoporosis: Code(s): M81.0 - Age-related osteoporosis without current pathological fracture Qualifiers: Presence of current pathological fracture: without current pathological fracture Qualified Code(s): M81.0 - Age-related osteoporosis without current pathological fracture Plan: Her most recent BMD done on 02/07/2022 showed no significant change in BMD from her previous one done in 2019; lowest T-score was at -3.0 in the lumbar spine Reinforced fall precautions Patient continues to decline pharmacotherapy -? feels that she is healthy and active and prefers not to take any additional medications at this time Was referred to and seen by endocrinology over the past few months and advised that they do not need to see her regularly if she does not wish to pursue pharmacotherapy Continue Vitamin D and calcium supplements daily and patient is again reminded to exercise regularly (3) Dyslipidemia: Code(s): E78.5 - Hyperlipidemia, unspecified Plan: Reinforced low cholesterol diett She is advised to get her previously ordered follow up labs done IRASEMA Per request, will also add a Lyme disease titer to her labs today (4) Lightheadedness: Code(s): R42 - Dizziness and giddiness Plan: Appears to be postural as patient relates that her lightheadedness seem to occur when she moves around too quickly and with increased activity Her blood pressure was noted to be somewhat lower than usual for her when it was first checked today but repeat BP came back normal Patient is reminded to drink plenty of fluids daily If her lightheadedness continue to recur, she may require further evaluation and work up (5) Neck pain: Code(s): M54.2 - Cervicalgia Plan: Will send her for cervical spine x-rays for further evaluation Will also check her serum magnesium level (6) Allergic rhinitis: Comment: Very mild, seasonal, does not require to use any medication. Code(s): J30.9 - Allergic rhinitis, unspecified Qualifiers: Allergic rhinitis seasonality: unspecified Allergic rhinitis trigger: unspecified Qualified Code(s): J30.9 - Allergic rhinitis, unspecified Plan: Continue Fluticasone nasal spray and/or OTC antihistamines like Loratadine 10 mg QD PRN for symptomatic relief (7) Vitamin D deficiency: Code(s): E55.9 - Vitamin D deficiency, unspecified Plan: Corrected - continue Vitamin D3 2000 units QD Plan Follow up in 6 months Orders: Orders 2 Lyme IgG/IgM w/reflex to WB 06/12/23 W57.XXXA - Bitten or stung by nonvenomous insect and other nonvenomous arthropods, initial encounter, R42 - Dizziness and giddiness XR cervical spine 3V 06/12/23 M54.2 - Cervicalgia Magnesium 06/12/23 E83.42 - Hypomagnesemia Coding Level of Care Code Est Pt Level 4 (09368) Diagnoses Exertional dyspnea R06.00 Age-related osteoporosis without current pathological fracture M81.0 Presence of current pathological fracture: without current pathological fracture Dyslipidemia E78.5 Lightheadedness R42 Neck pain M54.2 Allergic rhinitis, unspecified seasonality, unspecified trigger J30.9 Allergic rhinitis seasonality: unspecified Allergic rhinitis trigger: unspecified Vitamin D deficiency E55.9
[2023-06-12 11:16] VITALS: BP 128/80
== END 2023-06-12 11:25 | disposition home or self-care (01) ==
PROVIDERS: PCP Internal Medicine; Visit Provider Internal Medicine
DX: R06.00 Dyspnea, unspecified (principal); M81.0 Age-related osteoporosis without current pathological fracture; E78.5 Hyperlipidemia, unspecified; R42 Dizziness and giddiness; M54.2 Cervicalgia; J30.9 Allergic rhinitis, unspecified; E55.9 Vitamin D deficiency, unspecified
CPT/HCPCS: 99214

== ENCOUNTER 2023-06-12 11:29 | Outpatient (REF) | payer MEDICARE, SELFPAY ==
--- NOTE | ~2023-06-12 | XR_ITS ---
EXAMINATION: XR CERVICAL SPINE CLINICAL INFORMATION: Cervicalgia. COMPARISON: CT neck 08/22/2019. TECHNIQUE: 3 views of the cervical spine were obtained. FINDINGS: Stable trace anterolisthesis of C2 on C3 and C6 on C7. No evidence of acute compression deformity or acute traumatic subluxation. Stable asymmetric widening of the anterior intervertebral disc space at the level of C6-C7. Moderate to severe intervertebral disc height loss in the mid cervical spine. Moderate multilevel facet/uncovertebral hypertrophy. No prevertebral soft tissue thickening. 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 Lung apices are clear. XR/XR cervical spine 3V IMPRESSION: 1. No acute compression deformity or acute subluxation. 2. Stable trace anterolisthesis of C2 on C3 and C6 and C7. 3. Unchanged mild asymmetric widening of the anterior intervertebral disc space at C6-C7. 4. Moderate to severe cervical spondylosis.
[2023-06-12 11:42] LABS: MANUAL DIFF FLAG NO
[2023-06-12 12:41] LABS: Basophils Absolute Auto 0.1 X10*3/uL (0.0-0.2); Basophils Percent Auto 0.8 % (0-2); Eosinophils Absolute Auto 0.2 X10*3/uL (0.0-0.4); Eosinophils Percent Auto 2.7 % (0-4); Hematocrit 40.5 % (37.0-47.0); Hemoglobin 13.6 g/dl (12.0-16.0); Imm Gran Abs Auto 0.03 X10*3/uL (0.00-0.03); Imm Gran Pct Auto 0.4 % (0.0-0.4); Lymphocytes Absolute Auto 2.1 X10*3/uL (1.2-4.9); Lymphocytes Percent Auto 28.4 % (20-40); Mean Corpuscular HGB Conc 33.6 g/dl (31.0-35.0); Mean Corpuscular Hemoglobin 31.8 pg (27.0-33.0); Mean Corpuscular Volume 94.6 fL (80.0-98.0); Monocytes Absolute Auto 0.5 X10*3/uL (0.1-1.2); Neutrophils Absolute Auto 4.5 x10*3/uL (2.0-8.3); Neutrophils Percent Auto 60.7 % (45-73); Platelet Count 269 X10*3/uL (160-400); Red Blood Count 4.28 X10*6/uL (4.20-5.50); Red Cell Distribution Width 13.1 % (11.0-16.0); White Blood Count 7.5 X10*3/uL (4.8-10.8)
[2023-06-12 12:43] LABS: Appearance Urine Clear; Color Urine Yellow; Glucose Urine UA Negative (Negative); Leukocyte Esterase Urine Moderate (2+) (Negative); Nitrite Urine Negative (Negative); PH 6.5 (5.0-9.0); Specific Gravity - Urine 1.015 (1.005-1.025); UMIC TRIGGER UACC YES; Urine Blood Negative (Negative); Urine Ketones Negative (Negative); Urine Protein Negative (Neg-Trace)
[2023-06-12 12:48] LABS: Bacteria Urine None Seen (None Seen); Hyaline Casts Urine 0-2 /LPF (0-2); UACC Culture Trigger YES; WBC Urine 21-50 /HPF (0-5)
[2023-06-12 13:14] LABS: Alanine Aminotransferase 9 U/L (0-31); Albumin Level 4.3 g/dL (3.5-5.0); Alkaline Phosphatase 68 U/L (39-117); Anion Gap 14 (12-20); Aspartate Amino Transferase 17 U/L (5-31); Bilirubin Total 0.4 mg/dL (0.0-1.0); Blood Urea Nitrogen 12 mg/dL (9-16); Calcium 9.6 mg/dL (8.4-10.2); Carbon Dioxide 24 mmol/L (22-29); Chloride 106 mmol/L (96-108); Cholesterol 241 mg/dL (<200); Estimated Glomerular Filt Rate > 60; Glucose Fasting 99 mg/dL (60-99); HDL Cholesterol 90 mg/dL (>40); LDL Cholesterol Calculated 138 mg/dL (<100); Magnesium 2.4 mg/dL (1.6-2.6); Potassium 4.9 mmol/L (3.3-5.1); Sodium 139 mmol/L (135-145); Total Protein 7.7 g/dL (6.5-8.0); Triglycerides 66 mg/dL (<150)
[2023-06-12 13:33] LABS: TSH reflex Free T4 1.81 uIU/mL (0.32-4.0); Vitamin D 25-OH Total 35.4 ng/mL (>30)
[2023-06-12 13:54] LABS: Vitamin B12 382 pg/mL (200-900)
[2023-06-12 14:52] LABS: Folate 11.7 ng/mL (> or = 4.0)
[2023-06-13 16:53] LABS: Lyme Abs Screen <0.90 index
== END 2023-06-12 11:30 | disposition home or self-care (01) ==
LOC: HO.LAB 11:29
PROVIDERS: PCP Internal Medicine; Visit Provider Internal Medicine
DX: M54.2 Cervicalgia (principal); E78.00 Pure hypercholesterolemia, unspecified; E53.8 Deficiency of other specified B group vitamins; E55.9 Vitamin D deficiency, unspecified; T14.8XXA Other injury of unspecified body region, initial encounter; W57.XXXA Bitten or stung by nonvenomous insect and other nonvenomous arthropods, initial encounter; R42 Dizziness and giddiness; I10 Essential (primary) hypertension; R30.0 Dysuria
CPT/HCPCS: 36415; 72040; 80053; 80061; 81001; 82306; 82607; 82746; 83735; 84443; 85025; 86617; 86618; 87086; 87147

== ENCOUNTER 2023-07-06 09:09 | Outpatient (AMB) | payer MEDICARE, SELFPAY ==
--- NOTE | 2023-07-06 10:13 | MHC.OFFWIV ---
Intake Vital Signs 07/06/23 10:25 Height 51 ft Weight 139 lb 8 oz BMI 0.3 BP 128/62 Blood Pressure Location Lt brachial Position Sitting Pulse 70 Pulse Source Pulse Oximeter Temp 97.7 F Temp Source Temporal Artery Scan Pulse Oximetry (%) 97 Oxygen Delivery Method Room Air Intake Visit Reasons: EP Sore throat, Nasal Drip [phone] Intake Note: Pt is here c/o sore throat and post nasal drip. Pt states her grandkids were positive for strep. Patient Tobacco Use Status: Never used Tobacco Allergies Sulfa (Sulfonamide Antibiotics) Allergy (Intermediate, Verified 07/06/23 10:13) Swollen red eyes cefuroxime Adverse Reaction (Intermediate, Uncoded 07/06/23 10:13) Stomach Upset Do you need a note to return to daycare/school/sports/work: No HPI HPI Comments History of Present Illness Details Patient presented to Walk-in clinic today with c/o sore-throat. Pt reports 5 day h/o dry cough,and throat pain. Recent sick contacts at home (Grand-kids. Recent Negative COVID test. Denies fevers, SOB, CP, nausea or vomiting. Up to date with immunizations. [facility] Medical History Age related osteoporosis Allergic rhinitis Dyslipidemia Exertional dyspnea Left atrial dilatation Orthostatic lightheadedness Osteoarthritis Overweight (BMI 25.0-29.9) Pain and swelling of left lower leg Pain in joint of left hand Pure hypercholesterolemia Swelling of joint of left hand Vitamin D deficiency Surgical History Status post cardiac catheterization History of cardiac cath Hx of cataract removal with insertion of prosthetic lens (~12/2014) Hx of section Family History Mother Prediabetes Hyperlipidemia Hypertension Father No problems noted. Social History Housing: House Alcohol intake: current Alcohol intake frequency: holidays/special occasions only Patient Tobacco Use Status: Never used Tobacco e-Cigarette/Vaping Use: Never Used Second Hand Smoke Exposure: Yes service: No Current occupational status: retired Cognitive needs: No Hearing needs: Yes Vision needs: No Review of Systems Const All systems reviewed & are unremarkable except as noted in HPI and below Physical Exam Vital Signs: Last Vital Signs Temp 97.7 F 07/06/23 10:25 Pulse 70 07/06/23 10:25 BP 128/62 07/06/23 10:25 Pulse Ox 97 07/06/23 10:25 Oxygen Delivery Method Room Air 07/06/23 10:25 BMI result Body Mass Index 0.3 Const General: cooperative and no acute distress HEENT Head: Yes normocephalic Ears: external ears normal and TM's normal bilaterally General nose exam: Normal nares present Face and sinus: Yes sinuses nontender Mouth: Normal oral and palatal mucosa present Throat: Yes posterior oropharynx normal and Yes uvula midline Resp Effort & Inspection: normal respiratory effort Cardio Rate: regular rate Rhythm: regular rhythm Heart sounds: S1 normal heart sound present and S2 normal heart sound present Results AMB Rapid Strep AMB Rapid Strep Negative Last Edit by Randa Madison CMA on 07/06/23 10:34 Results Reviewed Results Reviewed: Laboratory Last Values Strep Scn [facility] Negative 07/06/23 10:29 Assessment & Plan Assessment & Plan (1) Cough in adult: Code(s): R05.9 - Cough, unspecified Plan: Continue using Flonase Start Benzonatate BID for cough Cough drops PRN Warm salted water gaggles Rest vocals (2) Acute pharyngitis: Code(s): J02.9 - Acute pharyngitis, unspecified Qualifiers: Pharyngitis/tonsillitis etiology: other specified organisms Qualified Code(s): J02.8 - Acute pharyngitis due to other specified organisms Plan Continue using Flonase Start Benzonatate BID for cough Cough drops PRN Warm salted water gaggles Rest vocals Orders: Orders AMB Rapid Strep Screen Today Z13.9 - Encounter for screening, unspecified Matheus Heredia MD Medications: New benzonatate TAKE 1 TABLET TWICE A DAY FOR COUGH PRN 100 mg PO BID 10 days PRN 20 caps 0RF cough Shima Aiken NP menthol ([place] Cough Drops) 6.4 mg mucous membrane Q2-4H 10 days PRN 30 ea 0RF sore throat Shima Aiken NP Patient Instructions: Report high fevers, chect pain and SOB. Coding Level of Care Code Est Pt Level 2 (57759) Diagnoses Cough in adult R05.9 Acute pharyngitis due to other specified organisms J02.8 Pharyngitis/tonsillitis etiology: other specified organisms Time Spent (min) 10
[2023-07-06 10:25] VITALS: BP 128/62; PULSE 70; TEMP 36.5; O2SAT 97
== END 2023-07-06 11:14 | disposition home or self-care (01) ==
PROVIDERS: PCP Internal Medicine; Visit Provider Nurse Practitioner Family
DX: R05.9 Cough, unspecified (principal); J02.9 Acute pharyngitis, unspecified
CPT/HCPCS: 87880; 99213

== ENCOUNTER 2023-07-14 05:27 | Emergency (ER) | payer MEDICARE, SELFPAY ==
--- NOTE | 2023-07-14 | ECG_ITS ---
Test Reason : CHEST PAIN Blood Pressure : / mmHG Vent. Rate : 053 BPM Atrial Rate : 053 BPM P-R Int : 148 ms QRS Dur : 088 ms QT Int : 434 ms P-R-T Axes : 044 004 060 degrees QTc Int : 407 ms Sinus bradycardia Otherwise normal ECG When compared with ECG of 23-MAY-2021 16:18, T wave amplitude has increased in Anterior leads Referred By: Generic ED Physician Electronically Signed By:ISH REYES MD
--- NOTE | ~2023-07-14 | XR_ITS ---
EXAMINATION: XR CHEST CLINICAL INFORMATION: Palpitations, cough COMPARISON: Chest xray on 06/27/16 TECHNIQUE: 2 views of the chest were obtained. FINDINGS: The cardiac silhouette is normal. There is mild diffuse bronchial wall thickening. There are no areas of consolidation. There are no pleural effusions or pneumothoraces. The bones and soft tissues are unremarkable for the patient's age. XR/XR chest 2V IMPRESSION: Bronchial wall thickening may be infectious and/or inflammatory in etiology.
[2023-07-14 05:35] VITALS: BP 161/65; PULSE 57; RESP 16; BMI 26.1
[2023-07-14 05:55] LABS: Basophils Absolute Auto 0.1 X10*3/uL (0.0-0.2); Basophils Percent Auto 0.8 % (0-2); Eosinophils Absolute Auto 0.3 X10*3/uL (0.0-0.4); Eosinophils Percent Auto 5.1 % (0-4); Hematocrit 38.1 % (37.0-47.0); Hemoglobin 13.1 g/dl (12.0-16.0); Imm Gran Abs Auto 0.01 X10*3/uL (0.00-0.03); Imm Gran Pct Auto 0.2 % (0.0-0.4); Lymphocytes Absolute Auto 2.1 X10*3/uL (1.2-4.9); Lymphocytes Percent Auto 33.7 % (20-40); MANUAL DIFF FLAG NO; Mean Corpuscular HGB Conc 34.4 g/dl (31.0-35.0); Mean Corpuscular Hemoglobin 31.1 pg (27.0-33.0); Mean Corpuscular Volume 90.5 fL (80.0-98.0); Mean Platelet Volume 11.1 fL (9.4-12.3); Monocytes Absolute Auto 0.6 X10*3/uL (0.1-1.2); Monocytes Percent Auto 8.7 % (2-11); Neutrophils Absolute Auto 3.3 x10*3/uL (2.0-8.3); Neutrophils Percent Auto 51.5 % (45-73); Platelet Count 285 X10*3/uL (160-400); Red Blood Count 4.21 X10*6/uL (4.20-5.50); Red Cell Distribution Width 12.6 % (11.0-16.0); White Blood Count 6.3 X10*3/uL (4.8-10.8)
[2023-07-14 06:13] VITALS: BP 127/67; PULSE 53; RESP 14; TEMP 36.7; O2SAT 96
--- NOTE | 2023-07-14 06:14 | PC.NURSE ---
Pt ca&ox4, no signs of distress. Pt denies chest pain, and sob. Pts at bedside. Pt vitals stable Pt placed on bedside monitor. Plan of care ongoing.
[2023-07-14 06:15] LABS: Alanine Aminotransferase 11 U/L (0-31); Alkaline Phosphatase 63 U/L (39-117); Anion Gap 12 (12-20); Aspartate Amino Transferase 16 U/L (5-31); Bilirubin Total 0.4 mg/dL (0.0-1.0); Blood Urea Nitrogen 11 mg/dL (9-16); Calcium 9.4 mg/dL (8.4-10.2); Carbon Dioxide 25 mmol/L (22-29); Chloride 106 mmol/L (96-108); Creatinine Clr Calc Pharmacy 61.5; Estimated Glomerular Filt Rate > 60; Glucose Random 106 mg/dL (60-115); Lipase 29 U/L (8-78); Potassium 4.3 mmol/L (3.3-5.1); Sodium 139 mmol/L (135-145); Total Protein 7.4 g/dL (6.5-8.0); Troponin-I High Sensitivity 10.7 ng/L (<3.5-17.0)
[2023-07-14 06:28] LABS: B Type Natriuretic Peptide 44 pg/mL (<100)
[2023-07-14 06:29] LABS: TSH reflex Free T4 3.35 uIU/mL (0.32-4.0)
--- NOTE | 2023-07-14 07:50 | ED_ITS ---
HPI - Chest Pain General Chief Complaint: Chest Pain Stated Complaint: Nausea Time Seen by Provider: 07/14/23 07:50 History of Present Illness HPI narrative: The patient is a 72-year-old female who says that either yesterday or the day before she had an episode of palpitations associated with diaphoresis that lasted on the order of minutes. Perhaps 5 or 10 minutes at the most. Possibly only 2 minutes. She had a 2nd similar episode this morning while in bed at around 04:30 in the morning. She had been doing nothing in particular except lying in bed and it may have woken her from sleep. She then felt profoundly fatigued and she asked her to bring her to the hospital. The patient says that year and a half ago she had episodes of palpitations that prompted a fairly extensive workup including an echocardiogram, a wearable monitor, and a cardiac catheterization. She reports that an echocardiogram showed a large left atrium but no other diagnoses were made in any of these tests. Her coronary arteries looked quite good she believes. Patient says that last week she had a sore throat and was seen at an urgent care clinic and tested negative for strep. A home COVID test was negative. No fever, sweats, chills. She gets occasional coughs. Related Data Home Medications Medication Instructions Recorded Confirmed ascorbate calcium (vitamin C) 500 500 mg PO DAILY 04/20/20 06/12/23 mg tablet Previous Rx's Medication Instructions Recorded cholecalciferol (vitamin D3) 50 50 mcg PO DAILY 90 days #90 caps 12/04/22 mcg (2,000 unit) capsule fluticasone propionate 50 2 spray intranasal DAILY PRN nasal 06/21/23 mcg/actuation nasal congestion 30 days #16 grams spray,suspension benzonatate 100 mg capsule 100 mg PO BID PRN cough 10 days 07/06/23 #20 caps menthol 3.2 mg lozenges ([place]gomery 6.4 mg mucous membrane Q2-4H PRN 07/06/23 Cough Drops) sore throat 10 days #30 ea Allergies Allergy/AdvReac Type Severity Reaction Status Date / Time Sulfa (Sulfonamide Allergy Intermediate Swollen Verified 07/14/23 05:42 Antibiotics) red eyes cefuroxime AdvReac Intermediate Stomach Uncoded 07/14/23 05:42 Upset Review of Systems 2 Review of Systems: Yes all other systems are reviewed and are negative PMFSH Past Medical History Onset Date is defined in the Problem List Problems that require an onset date and time if occurred within 24 hrs of arrival to the ED Aortic Dissection and Rupture; Neurologic impairment; Cardiopulmonary Arrest; Endotracheal Intubation; Insertion or Replacement of Mechanical Circulatory Assist Device Medical History Age related osteoporosis Allergic rhinitis Dyslipidemia Exertional dyspnea Left atrial dilatation Orthostatic lightheadedness Osteoarthritis Overweight (BMI 25.0-29.9) Pain and swelling of left lower leg Pain in joint of left hand Pure hypercholesterolemia Swelling of joint of left hand Vitamin D deficiency Surgical History Status post cardiac catheterization History of cardiac cath Hx of cataract removal with insertion of prosthetic lens (~12/2014) Hx of section Family History Family History Mother Prediabetes Hyperlipidemia Hypertension Father No problems noted. Social History Social History Housing: House Alcohol intake: current Alcohol intake frequency: holidays/special occasions only Patient Tobacco Use Status: Never used Tobacco Smoked in Last 30 Days: No e-Cigarette/Vaping Use: Never Used Second Hand Smoke Exposure: Yes Use of substances other than those prescribed or required for medical reasons: No Advance Directives: No Advance Directives Information Provided: Yes service: No Current occupational status: retired Cognitive needs: No Hearing needs: Yes Vision needs: No Physical Exam 2 Vital Signs: Vital Signs: Last Vital Signs Temp 98.0 F 07/14/23 06:13 Pulse 53 07/14/23 06:13 Resp 14 07/14/23 06:13 BP 127/67 07/14/23 06:13 Pulse Ox 96 07/14/23 06:13 O2 Del Method Room Air 07/14/23 06:13 BMI result Body Mass Index 26.1 Const: Other: The patient is awake and alert and looks well. She does not seem in distress or ill. HEENT: Other: Face is symmetrical, mucous membranes moist. Eyes: Other: Pupils are round equal, conjunctivae clear Neck: Other: No JVD Resp: Effort & Inspection: normal respiratory effort Auscultation: clear to auscultation bilaterally Cardio: Other: The patient has a regular rate and rhythm. There was no murmur but her 2nd heart sounds sounded very loud to the right of the upper sternal border. GI: Other: Abdomen was soft and nontender. Skin: Other: Dry and unremarkable. Neuro: Other: The patient is awake, alert, pleasant, cooperative. Cranial nerves are grossly intact. She moves her extremities normally. She seems grossly neurologically intact. Extrem: Other: No peripheral edema. No calf swelling or tenderness. No asymmetry. Medical Decision Making Medical Decision Making [facility] Narrative: The patient is a 72-year-old woman who presents with an episode of palpitations that woke her from sleep this morning. The episode lasted about 2 minutes and left her with a sense of fatigue. She had a similar episode either yesterday or the day before. That episode also only lasted about 2 minutes. The patient is in a sinus rhythm in the emergency room. Her EKG shows no acute findings. The patient describes having problems with palpitations about a year and a half ago. This prompted an extensive workup including an echocardiogram and a cardiac catheterization as well as cardiac monitoring. No evidence of atrial fibrillation, significant coronary disease, or other problem was ever determined. On examined the patient looks well. She has a loud 2nd heart sound over the right upper sternal border but otherwise her exam seems very reassuring. EKG looks reassuring. Labs and chest x-ray are unremarkable. Troponins are flat. The patient may be discharged to follow up with her regular doctor and/or her controls designer. She may be having brief episodes of atrial fibrillation. She was instructed to check her pulse the next time she has such an episode or possibly to get some kind of sybil on her smart phone which might help home evaluations. Lab Data 07/14/23 05:50 07/14/23 05:50 Labs: Lab Results 07/14/23 07/14/23 Range/Units 05:50 08:30 WBC 6.3 (4.8-10.8) X10*3/uL RBC 4.21 (4.20-5.50) X10*6/uL Hgb 13.1 (12.0-16.0) g/dl Hct 38.1 (37.0-47.0) % MCV 90.5 (80.0-98.0) fL MCH 31.1 (27.0-33.0) pg MCHC 34.4 (31.0-35.0) g/dl RDW 12.6 (11.0-16.0) % Plt Count 285 (160-400) X10*3/uL MPV 11.1 (9.4-12.3) fL Immature Gran % (Auto) 0.2 (0.0-0.4) % Neut % (Auto) 51.5 (45-73) % Lymph % (Auto) 33.7 (20-40) % Flagler % (Auto) 8.7 (2-11) % Eos % (Auto) 5.1 H (0-4) % Baso % (Auto) 0.8 (0-2) % Lymph # (Auto) 2.1 (1.2-4.9) X10*3/uL Flagler # (Auto) 0.6 (0.1-1.2) X10*3/uL Eos # (Auto) 0.3 (0.0-0.4) X10*3/uL Baso # (Auto) 0.1 (0.0-0.2) X10*3/uL Abs Immat Gran (auto) 0.01 (0.00-0.03) X10*3/uL Absolute Neuts (auto) 3.3 (2.0-8.3) x10*3/uL Absolute Nucleated RBC 0.000 (0.0-0.012) X10*3/uL Nucleated RBC % (auto) 0.0 (0.0-0.2) /100WBC Sodium 139 (135-145) mmol/L Potassium 4.3 (3.3-5.1) mmol/L Chloride 106 (96-108) mmol/L Carbon Dioxide 25 (22-29) mmol/L Anion Gap 12 (12-20) BUN 11 (9-16) mg/dL Creatinine 0.68 (0.5-1.4) mg/dL Estim Creat Clear Calc 61.5 Estimated GFR > 60 Random Glucose 106 (60-115) mg/dL Calcium 9.4 (8.4-10.2) mg/dL Magnesium 2.0 (1.6-2.6) mg/dL Total Bilirubin 0.4 (0.0-1.0) mg/dL AST 16 (5-31) U/L ALT 11 (0-31) U/L Alkaline Phosphatase 63 (39-117) U/L Troponin I High Sens 10.7 9.8 (<3.5-17.0) ng/L B-Natriuretic Peptide 44 (<100) pg/mL Total Protein 7.4 (6.5-8.0) g/dL Albumin 4.0 (3.5-5.0) g/dL Lipase 29 (8-78) U/L TSH 3.35 (0.32-4.0) uIU/mL COVID-19 (JOHN) Negative (Negative) COVID-19 Clin Com See Note Independent Interpretation I performed an independent interpretation of an: EKG Interpretation: EKG at 05:36 shows sinus bradycardia at 53 beats per minute. No ischemic changes. Discharge Plan Discharge Clinical Impression: Palpitations Patient Disposition: Home, Self-Care Instructions: Heart Palpitations (ED) Additional Instructions: Your testing in the emergency room today is very reassuring. There is no evidence of a heart attack or other acutely dangerous process. I think he will need to follow up with your regular doctor and or your controls designer for further evaluation of these episodes. They may recommend that you wear another monitor at home for a while. Therefore please rest and take it easy today. Continue your regular medications. Please plan on contacting your regular doctors on Sunday to arrange follow-up plans. If you have episodes of this kind which remain brief I do not think he needs return to the hospital. However if you have recurrence of symptoms which is quite persistent then you should return for another evaluation. Prescriptions: No Action fluticasone propionate 50 mcg/actuation spray,suspension 2 spray intranasal DAILY PRN (Reason: nasal congestion) 30 Days Qty: 16 12RF Rx Instructions: administer into each nostril cholecalciferol (vitamin D3) 50 mcg (2,000 unit) capsule 50 mcg PO DAILY 90 Days Qty: 90 3RF benzonatate 100 mg capsule 100 mg PO BID PRN (Reason: cough) 10 Days Qty: 20 0RF Rx Instructions: TAKE 1 TABLET TWICE A DAY FOR COUGH PRN Montgomery Cough Drops 3.2 mg lozenge 6.4 mg mucous membrane Q2-4H PRN (Reason: sore throat) 10 Days Qty: 30 0RF ascorbate calcium (vitamin C) 500 mg tablet 500 mg PO DAILY Referrals: Bernabe Peterson MD [Primary Care Provider] - (Palpitations) Tomer Morales MD [Physician] - (Palpitations) Interventions: ED Discharge Assessment Last Done: 07/14/23 09:55 Discharge Date/Time: 07/14/23 09:55
--- NOTE | 2023-07-14 08:30 | PC.NURSE ---
assumed care of pt at 0700. pt a&o x4, pleasant, calm, and cooperative. pt denies pain/flutter/chest rumbling jennifer. pt sts I'm just tired now . at bedside. call shanks within reach. plan of care ongoing.
[2023-07-14 08:56] LABS: COVID-19 Test Negative (Negative); IDNOW Serial# 9DB6401D
[2023-07-14 08:59] LABS: Troponin-I High Sensitivity 9.8 ng/L (<3.5-17.0)
== END 2023-07-14 09:55 | disposition home or self-care (01) ==
PROVIDERS: Emergency Medicine; Emergency Provider Emergency Medicine; PCP Internal Medicine
DX: R00.2 Palpitations (principal); R05.9 Cough, unspecified; Z11.52 Encounter for screening for COVID-19; E78.00 Pure hypercholesterolemia, unspecified
CPT/HCPCS: 36415; 71046; 80053; 83690; 83735; 83880; 84443; 84484; 85025; 87635; 93005; 99283; 99285

== ENCOUNTER → 2023-07-14 05:36 | Outpatient (BNV) | payer MEDICARE, SELFPAY | PROVIDERS: Emergency Provider Emergency Medicine; PCP Internal Medicine; Visit Provider Internal Medicine Cardiovascular Disease | DX: R00.1 Bradycardia, unspecified (principal) | CPT/HCPCS: 93010 ==

== ENCOUNTER 2023-07-23 14:13 | Outpatient (AMB) | payer MEDICARE, SELFPAY ==
[2023-07-23 14:44] VITALS: BP 150/72; PULSE 58; BMI 26.1
--- NOTE | 2023-07-23 14:44 | MHC.OFFVIS ---
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: No Allergies Sulfa (Sulfonamide Antibiotics) Allergy (Intermediate, Verified 07/23/23 14:47) Swollen red eyes cefuroxime Adverse Reaction (Intermediate, Uncoded 07/14/23 05:42) Stomach Upset Medication List - Last Reconciled 07/23/23 by Sandra De Anda, [employer]PER[employer]OR-C ascorbate calcium (vitamin C) 500 mg PO DAILY cholecalciferol (vitamin D3) 50 mcg PO DAILY 90 days fluticasone propionate 50 mcg/actuation 2 sprays intranasal DAILY PRN 30 days HPI Nausea/Light headed/Chest flutter/ [facility] 1-13 HPI Details Yaritza is a 72-year-old female with past medical history of hyperlipidemia, left atrial dilation, who was previously evaluated for heart palpitations without significant findings. She was seen in the emergency room last week with an episode of heart palpitation with associated symptoms. ED evaluation showed no significant abnormalities. Today she reports that she has not had any recurrent heart palpitations since the event that brought her to the emergency room. She describes that episode as being a brief fluttering in her heart that occurred during the night. She is unsure if she was already awake or if this woke her up. She says she rolled over in bed then became diaphoretic, nauseous, had abdominal cramp and then got up and had a bowel movement. She says she never has bowel movements in the middle of the night. She has not had an episode like this in the past. No chest discomfort at rest or with activity. No shortness of breath, syncope, falls. No PND, orthopnea or edema. Had not been sick in the days prior to her ER visit. States she had been in her normal state of health. Has never had presyncope or syncope in the past. [facility] Medical History Left atrial dilatation Orthostatic lightheadedness Pain and swelling of left lower leg Exertional dyspnea Swelling of joint of left hand Pain in joint of left hand Overweight (BMI 25.0-29.9) Allergic rhinitis Pure hypercholesterolemia Osteoarthritis Dyslipidemia Vitamin D deficiency Age related osteoporosis Surgical History Status post cardiac catheterization History of cardiac cath Hx of cataract removal with insertion of prosthetic lens (~12/2014) Hx of section Family History Mother Prediabetes Hyperlipidemia Hypertension Father No problems noted. Social History Housing: House Alcohol intake: current Alcohol intake frequency: holidays/special occasions only Patient Tobacco Use Status: Never used Tobacco e-Cigarette/Vaping Use: Never Used Second Hand Smoke Exposure: Yes service: No Current occupational status: retired Cognitive needs: No Hearing needs: Yes Vision needs: No Review of Systems Const All systems reviewed & are unremarkable except as noted in HPI and below ENT Denies dizziness Card Denies chest pain, Denies chest pain at rest, Denies chest pain with activity, Reports rapid heart rate (Brief episode), Denies pedal edema, Denies edema, Denies leg edema, Denies lightheadedness, Denies palpitations, Denies dyspnea, Denies dyspnea on exertion and Denies orthopnea Resp Denies cough, Denies dyspnea and Denies dyspnea on exertion GI Denies hematochezia and Denies change in stool character Musc Denies abnormal gait, Denies limited range of motion, Denies muscle cramps, Denies muscle weakness, Denies numbness, Denies radiating pain into limb, Denies stiffness and Denies tingling Neuro Denies abnormal gait, Denies dizziness, Denies numbness and Denies tingling Endo Denies palpitations Physical Exam Vital Signs: Last Vital Signs Pulse 58 07/23/23 14:44 BP 150/72 H 07/23/23 14:44 BMI result Body Mass Index 26.1 Const General: cooperative, healthy appearing, comfortable and no acute distress Orientation/consciousness: patient oriented x3 Neck Neck: Yes normal visual inspection and Yes no JVD Resp Effort & Inspection: normal respiratory effort Auscultation: clear to auscultation bilaterally, no crackles, no rales, no rhonchi and no wheezes Cardio Jugular venous distension: no JVD Rate: regular rate Rhythm: regular rhythm Heart sounds: S1 normal heart sound present, S2 normal heart sound present, no gallops, no murmurs and no rubs Neuro General: patient oriented x3 Extrem General: Yes normal to inspection, No no pedal edema and No calf tenderness Psych Appearance: grossly normal Mental Status: mental status grossly normal Speech and movement: Normal speech and movement present Assessment & Plan Assessment & Plan (1) Palpitations: Code(s): R00.2 - Palpitations Plan: Prior evaluation for heart palpitations described as a flutter feeling. Echocardiogram from 2020 showed moderate left atrial dilation. Testing done to evaluate for the presence of atrial fibrillation. EKG prior visit showed sinus rhythm with right bundle branch block, rate 64. Echocardiogram done 10/26/2022 showed EF 60-65%, left atrium mildly dilated, impaired relaxation and no valve abnormalities. Holter monitor done on 10/26/2022 for 4 days shows sinus rhythm with average heart rate 60, heart rate range 38 to 111, 58% of the time heart rate less than 60, occasional SVE, brief runs longest 14 beats, symptoms correlated with SVE, VE, sinus Rj and sinus rhythm. Her palpitations then did lessen after reduction in caffeinated beverages. She had been doing well then developed episode as described above. She describes fluttering in her chest lasting seconds followed by symptoms of the diaphoresis, nausea, abdominal cramping and bowel movement. She had her bring her to the ER. Evaluation showed no significant abnormalities. EKG showed sinus bradycardia, no acute ST or T-wave abnormalities, rate 53. Blood pressure normal range. To me her episode sounds like it could have been a episode of SVE which caused concern? and led to a vasovagal type event. She has never had vasovagal events in the past. Will check Holter monitor again to evaluate for any concerning arrhythmia. Blood pressure mildly elevated today however patient reports some anxiety. Discussed good hydration, normal activity as tolerated. Continue to drink decaf beverages. She is not on any rate slowing medications. No indication for med management at this time. Emergency care if ever needed for sustained rapid heartbeats, presyncope, syncope. Plan to call her with Holter monitor results. Keep cardiology follow-up for November. (2) Left atrial dilatation: Code(s): I51.7 - Cardiomegaly Plan: Moderate on echo done in 2020. Last echocardiogram showing only mild left atrial dilation. (3) PAC (premature atrial contraction): Code(s): I49.1 - Atrial premature depolarization Plan: As above (4) History of cardiac cath: Comment: 05/12/2021, left main, lad, left circumflex all normal, RCA with mild irregularities Code(s): Z98.890 - Other specified postprocedural states Plan: No significant CAD Plan Time spent on chart review, documentation, interview and assessment Orders: Orders ECG 7 day holter monitor Today I49.1 - Atrial premature depolarization, R00.2 - Palpitations Coding Level of Care Code Est Pt Level 4 (46350) Diagnoses Palpitations R00.2 Left atrial dilatation I51.7 PAC (premature atrial contraction) I49.1 History of cardiac cath Z98.890 Time Spent (min) 30
== END 2023-07-23 15:25 | disposition home or self-care (01) ==
PROVIDERS: PCP Internal Medicine; Visit Provider Nurse Practitioner Family
DX: R00.2 Palpitations (principal); I51.7 Cardiomegaly; I49.1 Atrial premature depolarization; Z98.890 Other specified postprocedural states
CPT/HCPCS: 99214

== ENCOUNTER → 2023-07-23 14:13 | Outpatient (BNVA) | payer MEDICARE, SELFPAY | PROVIDERS: PCP Internal Medicine; Visit Provider Nurse Practitioner Family | DX: R00.2 Palpitations (principal); I51.7 Cardiomegaly; I49.1 Atrial premature depolarization; Z98.890 Other specified postprocedural states | CPT/HCPCS: 99212 ==

== ENCOUNTER 2023-07-29 09:39 | Inpatient (IN) | payer MEDICARE, SELFPAY ==
[2023-07-29] VITALS (11 sets, daily range): BP systolic 119–141; BP diastolic 58–83; PULSE 66–135; RESP 13–20; TEMP 36.1–37.1; O2SAT 96–99; BMI 25.6; BMI 25.9
--- NOTE | 2023-07-29 | ECG_ITS ---
Test Reason : repeat Blood Pressure : / mmHG Vent. Rate : 095 BPM Atrial Rate : 000 BPM P-R Int : 000 ms QRS Dur : 130 ms QT Int : 364 ms P-R-T Axes : 000 043 -21 degrees QTc Int : 457 ms Atrial fibrillation Right bundle branch block Abnormal ECG When compared with ECG of 29-JUL-2023 09:49, No significant change was found Referred By: Nabor Wheat Electronically Signed By:ISH REYES MD
--- NOTE | ~2023-07-29 | XR_ITS ---
EXAMINATION: XR CHEST CLINICAL INFORMATION: Palpitations. COMPARISON: Chest radiograph 07/14/2023. TECHNIQUE: AP view of the chest was obtained. FINDINGS: Stable appearance of the cardiomediastinal silhouette. Slightly increased diffuse interstitial coarsening. No focal consolidation, pleural effusion or pneumothorax. No acute osseous findings. Visualized upper abdomen is within normal limits. XR/XR chest 1V IMPRESSION: Slightly increase infectious/inflammatory small airways disease compared to 07/14/2023.
--- NOTE | 2023-07-29 09:45 | ECG_ITS ---
Test Reason : PALPITATIONA Blood Pressure : / mmHG Vent. Rate : 134 BPM Atrial Rate : 000 BPM P-R Int : 000 ms QRS Dur : 124 ms QT Int : 278 ms P-R-T Axes : 000 075 -17 degrees QTc Int : 415 ms Atrial fibrillation with rapid ventricular response Right bundle branch block T wave abnormality, consider inferior ischemia Abnormal ECG When compared with ECG of 14-JUL-2023 05:36, Atrial fibrillation has replaced Sinus rhythm Vent. rate has increased BY 81 BPM Right bundle branch block is now Present Referred By: Generic ED Physician Electronically Signed By:ISH REYES MD
[2023-07-29] MEDS: dilTIAZem HCL 50 MG/10 ML VIAL 10 MG IVPUSH (10:18)
[2023-07-29 10:21] LABS: MANUAL DIFF FLAG NO
[2023-07-29 10:23] LABS: Basophils Absolute Auto 0.1 X10*3/uL (0.0-0.2); Basophils Percent Auto 0.7 % (0-2); Eosinophils Absolute Auto 0.1 X10*3/uL (0.0-0.4); Eosinophils Percent Auto 1.7 % (0-4); Hematocrit 43.5 % (37.0-47.0); Hemoglobin 15.1 g/dl (12.0-16.0); Imm Gran Abs Auto 0.02 X10*3/uL (0.00-0.03); Imm Gran Pct Auto 0.2 % (0.0-0.4); Lymphocytes Absolute Auto 1.7 X10*3/uL (1.2-4.9); Lymphocytes Percent Auto 21.3 % (20-40); Mean Corpuscular HGB Conc 34.7 g/dl (31.0-35.0); Mean Corpuscular Hemoglobin 31.5 pg (27.0-33.0); Mean Corpuscular Volume 90.6 fL (80.0-98.0); Mean Platelet Volume 11.5 fL (9.4-12.3); Monocytes Absolute Auto 0.6 X10*3/uL (0.1-1.2); Monocytes Percent Auto 6.8 % (2-11); Neutrophils Absolute Auto 5.6 x10*3/uL (2.0-8.3); Neutrophils Percent Auto 69.3 % (45-73); Platelet Count 336 X10*3/uL (160-400); Red Cell Distribution Width 12.3 % (11.0-16.0); White Blood Count 8.1 X10*3/uL (4.8-10.8)
[2023-07-29] MEDS: dilTIAZem HCL 50 MG/10 ML VIAL IVPUSH (10:25)
[2023-07-29 10:29] LABS: D Dimer High Sensitivity 225 NG/ML
--- NOTE | 2023-07-29 10:35 | ED.ARRPALP ---
HPI - Arrhythmia/Palpitations General Chief Complaint: Arrhythmia/Palpitations Stated Complaint: Irregular heartbeat Time Seen by Provider: 07/29/23 10:01 Source: patient, family and old records reviewed Mode of arrival: ambulatory Limitations: no limitations History of Present Illness HPI narrative: 72 yo female with PMH of palpitations, HLD, recent negative ECHO other than dilated left atrium, non obs cardiac cath - work up done for shortness of breath. She comes in with c/o palpitations all night unable to get comfortable normally they go away but they didn't. She did have a beer and some tostadas last night. She denies CP. She states she is due for holter monitor on Sunday as she has been having palpitations in the past but no hx of afib complaint: heart racing , skipped beats and palpitations Onset (ago): hour(s) (few) Duration: intermittent Severity: moderate Context: occurred during rest Associated symptoms: shortness of breath Related Data Home Medications Medication Instructions Recorded Confirmed ascorbate calcium (vitamin C) 500 500 mg PO DAILY 04/20/20 07/23/23 mg tablet Previous Rx's Medication Instructions Recorded cholecalciferol (vitamin D3) 50 50 mcg PO DAILY 90 days #90 caps 12/04/22 mcg (2,000 unit) capsule fluticasone propionate 50 2 spray intranasal DAILY PRN nasal 06/21/23 mcg/actuation nasal congestion 30 days #16 grams spray,suspension Allergies Allergy/AdvReac Type Severity Reaction Status Date / Time Sulfa (Sulfonamide Allergy Intermediate Swollen Verified 07/29/23 09:44 Antibiotics) red eyes cefuroxime AdvReac Intermediate Stomach Uncoded 07/29/23 09:44 Upset Review of Systems Review of Systems: Constitutional : No Fever, No Chills, No Fatigue ENT/Mouth : No sore throat, No Rhinorrhea Eyes: No Eye Pain, No Swelling, No Redness Cardiovascular : No Chest Pain, No SOB, No Dyspnea on Exertion, pos palpitations Respiratory : No Cough, No Sputum Gastrointestinal : No Nausea, No Vomiting, No Diarrhea, No abdominal Pain Genitourinary : No Dysuria, No Urinary Frequency, No Hematuria, Musculoskeletal : No joint pain, No Myalgias, No Joint Swelling Skin : No Skin Lesions, No rash Neuro : No Weakness, No Numbness, No Dizziness, no Headache Psych : No Anxiety/Panic, No Depression Heme/Lymph: No Bruising, No Bleeding,No Lymphadenopathy Endocrine : No Polyuria, No Polydipsia All other systems reviewed and are negative [facility] Past Medical History Medical History Left atrial dilatation Orthostatic lightheadedness Pain and swelling of left lower leg Exertional dyspnea Swelling of joint of left hand Pain in joint of left hand Overweight (BMI 25.0-29.9) Allergic rhinitis Pure hypercholesterolemia Osteoarthritis Dyslipidemia Vitamin D deficiency Age related osteoporosis Surgical History Status post cardiac catheterization History of cardiac cath Hx of cataract removal with insertion of prosthetic lens (~12/2014) Hx of section Family History Family History Mother Prediabetes Hyperlipidemia Hypertension Father No problems noted. Social History Social History Housing: House Alcohol intake: current Alcohol intake frequency: holidays/special occasions only Patient Tobacco Use Status: Never used Tobacco e-Cigarette/Vaping Use: Never Used Second Hand Smoke Exposure: Yes Advance Directives: No Advance Directives Information Provided: Yes service: No Current occupational status: retired Cognitive needs: No Hearing needs: Yes Vision needs: No Physical Exam Vital Signs: Vital Signs: Last Vital Signs Temp 97.8 F 07/29/23 12:01 Pulse 105 H 07/29/23 11:45 Resp 15 07/29/23 11:45 BP 120/63 07/29/23 11:45 Pulse Ox 97 07/29/23 11:45 O2 Del Method Room Air 07/29/23 11:45 BMI result Body Mass Index 25.6 Appearance: Alert. Oriented X3. No acute distress. Eyes: Pupils equal, round and reactive to light. ENT: Pharynx normal. Neck: Normal inspection. Neck supple. CVS: tachycardic irregular heart rate and rhythm. Pulses normal. Respiratory: No respiratory distress. Breath sounds normal. Abdomen: Soft and nontender. Skin: Skin warm and dry. Normal skin color. Normal skin turgor. Extremities: No lower extremity edema. No calf ttp Neuro: Oriented X 3. No motor deficit. No sensory deficit. Course Course Course Narrative: no contraindications to eliquis after discussing with patient no response to IV bolus of diltiazem x 2, drip started Medications Administered Generic Name Dose Route Start Last Admin Trade Name Pavel PRN Reason Stop Dose Admin Diltiazem HCl 125 mg/ Sodium 125 mls @ 0 mls/hr 07/29/23 10:45 07/29/23 11:50 Chloride IVCONT 10 mg/hr .Q0M MAYANK 10 mls/hr Administration Protocol Per Protocol Discontinued Medications Generic Name Dose Route Start Last Admin Trade Name Frebarrett PRN Reason Stop Dose Admin Apixaban 5 mg 07/29/23 10:58 07/29/23 11:50 Apixaban 5 Mg Tablet PO 07/29/23 10:59 5 mg ONCE ONE Administration Diltiazem HCl 10 mg 07/29/23 10:02 07/29/23 10:18 Diltiazem Hcl 50 Mg/10 Ml Vial IVPUSH 07/29/23 10:03 10 mg STAT STA Administration Diltiazem HCl 5 mg 07/29/23 10:24 07/29/23 10:25 Diltiazem Hcl 50 Mg/10 Ml Vial IVPUSH 07/29/23 10:25 5 mg STAT STA Administration Medical Decision Making Medical Decision Making [facility] Narrative: 72 yo female with recent sig cardiac workup for palpitations and shortness of breath on exertion - cardiac cath no CAD, ECHO dilated left atrium at this time presents with palpitations all night waking her from sleep. Found to be in rapid afib. She was due for holter at Sunday this week. She denies chest pain. At this time IV dilt ordered. Possibly made worse by alcohol last night she is not a heavy drinker. Will obtain labs and start on diltiazem. Palpitations in the past likely afib chads vasc 2 would start on eliquis Differential Diagnosis Differential Diagnoses: The differential diagnosis associated with the presentation includes afib lytes ETOH reaction Admission/Observation Consideration of admission/observation: Escalation of care including admission/observation considered still elevated on dilt gtt will admit Consult Healthcare Provider Management of the patient was discussed with: Hospitalist (will admit) Lab Data [facility] Lab Attestation statement: I reviewed the patient's lab results. 07/29/23 10:17 07/29/23 10:17 Labs: Lab Results 07/29/23 07/29/23 Range/Units 10:07 10:17 WBC 8.1 (4.8-10.8) X10*3/uL RBC 4.80 (4.20-5.50) X10*6/uL Hgb 15.1 (12.0-16.0) g/dl Hct 43.5 (37.0-47.0) % MCV 90.6 (80.0-98.0) fL MCH 31.5 (27.0-33.0) pg MCHC 34.7 (31.0-35.0) g/dl RDW 12.3 (11.0-16.0) % Plt Count 336 (160-400) X10*3/uL MPV 11.5 (9.4-12.3) fL Immature Gran % (Auto) 0.2 (0.0-0.4) % Neut % (Auto) 69.3 (45-73) % Lymph % (Auto) 21.3 (20-40) % [place] % (Auto) 6.8 (2-11) % Eos % (Auto) 1.7 (0-4) % Baso % (Auto) 0.7 (0-2) % Lymph # (Auto) 1.7 (1.2-4.9) X10*3/uL [place] # (Auto) 0.6 (0.1-1.2) X10*3/uL Eos # (Auto) 0.1 (0.0-0.4) X10*3/uL Baso # (Auto) 0.1 (0.0-0.2) X10*3/uL Abs Immat Gran (auto) 0.02 (0.00-0.03) X10*3/uL Absolute Neuts (auto) 5.6 (2.0-8.3) x10*3/uL Absolute Nucleated RBC 0.000 (0.0-0.012) X10*3/uL Nucleated RBC % (auto) 0.0 (0.0-0.2) /100WBC D-Dimer High Sensitivty 225 NG/ML Sodium 137 (135-145) mmol/L Potassium 3.7 (3.3-5.1) mmol/L Chloride 103 (96-108) mmol/L Carbon Dioxide 23 (22-29) mmol/L Anion Gap 15 (12-20) BUN 11 (9-16) mg/dL Creatinine 0.84 (0.5-1.4) mg/dL Estim Creat Clear Calc 49.4 Estimated GFR > 60 Random Glucose 182 H (60-115) mg/dL Calcium 9.7 (8.4-10.2) mg/dL Magnesium 1.8 (1.6-2.6) mg/dL Total Bilirubin 0.3 (0.0-1.0) mg/dL Direct Bilirubin 0.1 (0.0-0.5) mg/dL AST 16 (5-31) U/L ALT 10 (0-31) U/L Alkaline Phosphatase 63 (39-117) U/L Troponin I High Sens 22.4 H D (<3.5-17.0) ng/L B-Natriuretic Peptide 251 H (<100) pg/mL Total Protein 7.6 (6.5-8.0) g/dL Albumin 4.2 (3.5-5.0) g/dL Lipase 27 (8-78) U/L TSH 2.40 (0.32-4.0) uIU/mL Urine Color Yellow Urine Appearance Clear Urine pH 7.0 (5.0-9.0) Ur Specific [place] 1.010 (1.005-1.025) Urine Protein Negative (Neg-Trace) mg/dL Urine Glucose (UA) Negative (Negative) mg/dL Urine Ketones Negative (Negative) mg/dL Urine Blood Negative (Negative) Urine Nitrite Negative (Negative) Ur Leukocyte Esterase Small (1+) H (Negative) Urine RBC 0-2 (0-2) /HPF Urine WBC 0-5 (0-5) /HPF Ur Squamous Epith Cells 0-2 (0-2) /HPF Urine Bacteria None Seen (None Seen) Hyaline Casts 0-2 (0-2) /LPF Independent Interpretation I performed an independent interpretation of an: EKG and Plain X-Ray (no CHF) Interpretation: Rate: 134 Rhythm: afib [place]: right RBBB ST T wave : no RODRIGO, inverted t waves in III, aVF, V3 qTC: 415 prior studies: changed from prior The study has been interpreted contemporaneously by me. . Radiology Impression Discussion of test interpretation with radiology: I have reviewed the radiologist's reading. Independent Historian Clinical information obtained from an independent historian. History obtained from or confirmed by: Spouse External Record Review External record reviewed: Inpatient record, Office record and Outpatient record Critical Care Time Critical Care Time Critical Care Time: Yes Total Critical Care Time: 60 Attestation: repeat IV bolus diltiazem x 2, IV dilt gtt, I attest to this time spent taking care of the patient Discharge Plan Discharge Clinical Impression: Atrial fibrillation with rapid ventricular response Patient Disposition: Admitted As Inpatient Prescriptions: No Action fluticasone propionate 50 mcg/actuation spray,suspension 2 spray intranasal DAILY PRN (Reason: nasal congestion) 30 Days Qty: 16 12RF Rx Instructions: administer into each nostril cholecalciferol (vitamin D3) 50 mcg (2,000 unit) capsule 50 mcg PO DAILY 90 Days Qty: 90 3RF ascorbate calcium (vitamin C) 500 mg tablet 500 mg PO DAILY
[2023-07-29 10:43] LABS: Alanine Aminotransferase 10 U/L (0-31); Albumin Level 4.2 g/dL (3.5-5.0); Alkaline Phosphatase 63 U/L (39-117); Anion Gap 15 (12-20); Aspartate Amino Transferase 16 U/L (5-31); Bilirubin Direct 0.1 mg/dL (0.0-0.5); Bilirubin Total 0.3 mg/dL (0.0-1.0); Blood Urea Nitrogen 11 mg/dL (9-16); Calcium 9.7 mg/dL (8.4-10.2); Carbon Dioxide 23 mmol/L (22-29); Chloride 103 mmol/L (96-108); Creatinine Clr Calc Pharmacy 49.4; Estimated Glomerular Filt Rate > 60; Glucose Random 182 mg/dL (60-115); Lipase 27 U/L (8-78); Potassium 3.7 mmol/L (3.3-5.1); Sodium 137 mmol/L (135-145); Total Protein 7.6 g/dL (6.5-8.0)
[2023-07-29 10:46] LABS: Appearance Urine Clear; Color Urine Yellow; Glucose Urine UA Negative (Negative); Leukocyte Esterase Urine Small (1+) (Negative); Nitrite Urine Negative (Negative); UMIC TRIGGER UACC YES; Urine Blood Negative (Negative); Urine Ketones Negative (Negative); Urine Protein Negative (Neg-Trace)
[2023-07-29 10:47] LABS: B Type Natriuretic Peptide 251 pg/mL (<100)
[2023-07-29 10:50] LABS: Magnesium 1.8 mg/dL (1.6-2.6)
[2023-07-29 10:52] LABS: Troponin-I High Sensitivity 22.4 ng/L (<3.5-17.0)
[2023-07-29 10:58] LABS: Bacteria Urine None Seen (None Seen); Hyaline Casts Urine 0-2 /LPF (0-2); RBC Urine 0-2 /HPF (0-2); Squamous Epithelial Cell Urine 0-2 /HPF (0-2); UACC Culture Trigger YES; WBC Urine 0-5 /HPF (0-5)
[2023-07-29] MEDS: dilTIAZem HCL 125 MG in 0.9 % Sodium Chloride 100 ML 10 MG IVCONT ×2 (11:50→23:16)
[2023-07-29] MEDS: Apixaban 5 MG TABLET PO ×2 (11:50→22:12)
[2023-07-29 13:01] LABS: COVID-19 Test Negative (Negative); IDNOW Serial# 58CA691E
--- NOTE | 2023-07-29 14:09 | PHA.MEDREC ---
Pharmacy Consult ? Medication Reconciliation Pharmacy has completed the medication reconciliation.
--- NOTE | 2023-07-29 14:40 | PM.IMHP ---
History of Present Illness Date of Service: 07/29/23 Chief Complaint: Palpitations 72-year-old female with history of palpitations presents with chest palpitations intermittently over the last 24 hours they did not resolve. She is been seen in the ER recently for complaints of same however when examined had been in sinus rhythm. She was scheduled for Holter monitor some time next week but developed these symptoms last night. She states when they did not resolve she sought care at the ER. She denies chest pain or shortness of breath with these symptoms; mild dizziness. Follows with Dr. Morales on an outpatient basis Review of Systems Review of Systems: Denies chest pain Denies shortness of breath Denies nausea vomiting diarrhea Denies fever chills [facility] Medical History Left atrial dilatation Orthostatic lightheadedness Pain and swelling of left lower leg Exertional dyspnea Swelling of joint of left hand Pain in joint of left hand Overweight (BMI 25.0-29.9) Allergic rhinitis Pure hypercholesterolemia Osteoarthritis Dyslipidemia Vitamin D deficiency Age related osteoporosis Family History Mother Prediabetes Hyperlipidemia Hypertension Father No problems noted. Surgical History Status post cardiac catheterization History of cardiac cath Hx of cataract removal with insertion of prosthetic lens (~12/2014) Hx of section Social History Housing: House Alcohol intake: current Alcohol intake frequency: holidays/special occasions only Patient Tobacco Use Status: Never used Tobacco e-Cigarette/Vaping Use: Never Used Second Hand Smoke Exposure: Yes Advance Directives: No Advance Directives Information Provided: Yes service: No Current occupational status: retired Cognitive needs: No Hearing needs: Yes Vision needs: No Meds Allergies Allergy/AdvReac Type Severity Reaction Status Date / Time Sulfa (Sulfonamide Allergy Intermediate Swollen Verified 07/29/23 09:44 Antibiotics) red eyes cefuroxime AdvReac Intermediate Stomach Uncoded 07/29/23 09:44 Upset Active Medications: Current Medications Acetaminophen (Acetaminophen 325 Mg Tablet) 650 mg PO Q6H PRN PRN Reason: Pain, Mild (Pain Scale 1-3) Ascorbic Acid (Ascorbic Acid 500 Mg Tablet) 500 mg PO DAILY [facility] Diltiazem HCl 125 mg/ Sodium (Chloride) 125 mls @ 0 mls/hr IVCONT .Q0M [facility]; Protocol Last Admin: 07/29/23 11:50 Dose: 10 mg/hr, 10 mls/hr Magnesium Hydroxide (Milk Of Magnesia 30 Ml Oral.Susp) 30 ml PO DAILY PRN PRN Reason: Constipation Ondansetron HCl (Ondansetron Hcl 4 Mg/2 Ml Vial) 4 mg IVPUSH Q8H PRN PRN Reason: Nausea and Vomiting Sodium Chloride (0.9 % Sodium Chloride Flush 3 Ml Syringe) 3 ml IVFLUSH QSHIFT [facility] Vitamin D (Cholecalciferol (Vitamin D3) 25 Mcg Tablet) 50 mcg PO DAILY [facility] Home Medications Medication Instructions Recorded Confirmed Last Taken Type ascorbate calcium (vitamin C) 500 500 mg PO DAILY 04/20/20 07/29/23 07/27/23 History mg tablet Physical Exam Vital Signs and Narrative: Vital Signs: Last Vital Signs Temp 97.8 F 07/29/23 12:01 Pulse 105 H 07/29/23 12:40 Resp 13 07/29/23 12:40 BP 122/72 07/29/23 12:40 Pulse Ox 98 07/29/23 12:40 O2 Del Method Room Air 07/29/23 12:40 BMI result Body Mass Index 25.6 Const: Other: Awake alert oriented x3 Resp: Other: Clear to auscultation bilaterally no rales rhonchi or wheezes Cardio: Other: Irregular/irregular; no S4; positive S1-S2; no S3 murmurs rubs or gallops GI: Other: Soft nontender nondistended normoactive bowel sounds Neuro: Other: Cranial nerves 2-12 grossly intact as tested. Motor is 5/5 all extremities. Sensation is intact. Cognition appropriate. Gait stable Extrem: Other: No edema bilaterally Results Labs 07/29/23 10:17 07/29/23 10:17 Labs: Laboratory Results - last 24 hr 07/29/23 07/29/23 07/29/23 10:07 10:17 12:35 MCV 90.6 MCH 31.5 MCHC 34.7 RDW 12.3 Plt Count 336 MPV 11.5 Immature Gran % (Auto) 0.2 Neut % (Auto) 69.3 Lymph % (Auto) 21.3 [place] % (Auto) 6.8 Eos % (Auto) 1.7 Baso % (Auto) 0.7 Lymph # (Auto) 1.7 [place] # (Auto) 0.6 Eos # (Auto) 0.1 Baso # (Auto) 0.1 Abs Immat Gran (auto) 0.02 Absolute Neuts (auto) 5.6 Absolute Nucleated RBC 0.000 Nucleated RBC % (auto) 0.0 D-Dimer High Sensitivty 225 Anion Gap 15 Estim Creat Clear Calc 49.4 Estimated GFR > 60 Random Glucose 182 H Calcium 9.7 Magnesium 1.8 Total Bilirubin 0.3 Direct Bilirubin 0.1 AST 16 ALT 10 Alkaline Phosphatase 63 B-Natriuretic Peptide 251 H Total Protein 7.6 Albumin 4.2 Lipase 27 TSH 2.40 Urine Color Yellow Urine Appearance Clear Urine pH 7.0 Ur Specific [place] 1.010 Urine Protein Negative Urine Glucose (UA) Negative Urine Ketones Negative Urine Blood Negative Urine Nitrite Negative Ur Leukocyte Esterase Small (1+) H Urine RBC 0-2 Urine WBC 0-5 Ur Squamous Epith Cells 0-2 Urine Bacteria None Seen Hyaline Casts 0-2 COVID-19 (JOHN) Negative COVID-19 Clin Com See Note Imaging Radiologist's Impressions: Impressions Chest X-Ray 07/29/23 10:15 IMPRESSION: Slightly increase infectious/inflammatory small airways disease compared to 07/14/2023. Assessment and Plan (1) Atrial fibrillation with rapid ventricular response: Status: Acute Plan 72-year-old female with essentially no past medical history presents with palpitations that began 24 hours prior to her presentation to the ER. She states she is gotten these intermittently in the past and was seen in the ER however examined and normal sinus rhythm. Scheduled for outpatient Holter monitoring however developed this episode. She was seen in the emergency room and placed on a Cardizem drip. 1. Atrial fibrillation with rapid ventricular response -will continue Cardizem drip as ordered and titrate as indicated -Eliquis 5 mg b.i.d. -follow CBC/renals/divalents -cardiology consult in a.m. Full code Eliquis Requires at least 2 midnights of inpatient stay going forward to treat AFib with a rapid ventricular response with IV Cardizem and will require specialist consultation. This can not be achieved a lesser acute setting Quality Stroke Does the patient have a stroke diagnosis?: No VTE Prior VTE?: No VTE Risk Level:: Medical - moderate - high VTE Device Contraindication: Treatment Not Indicated VTE Drug Contraindication: N/A - Med Ordered
--- NOTE | 2023-07-29 16:33 | PC.NURSE ---
md will notified hr now in 80s afib, per protocol gregusing alton. bp stable. no chest pain/dizziness.
--- NOTE | 2023-07-29 16:58 | PC.NURSE ---
spoke w md will- restarting gtt per md will 10mg/hr at this time.
--- NOTE | 2023-07-29 17:03 | PC.NURSE ---
awaiting response from floor to send pt up- group text has been read by all members.
[2023-07-29] MEDS: 0.9 % Sodium Chloride Flush 3 ML SYRINGE IVFLUSH ×2 (18:14→22:12)
[2023-07-30] VITALS (7 sets, daily range): BP systolic 103–140; BP diastolic 63–87; PULSE 58–106; RESP 18–20; TEMP 36.1–36.4; O2SAT 93–97
[2023-07-30] MEDS: Metoprolol Tartrate 12.5 MG HALFTAB PO ×3 (02:05→20:42)
--- NOTE | 2023-07-30 04:50 | PC.NURSE ---
Pt heart rate on tele sustaining 60'-70's while on cardizem gtt. md aware with orders to hold gtt, and po metoprolol given. pt denies palpitations, dizziness, or SOB. Cardiology consult pending.
[2023-07-30 06:58] LABS: MANUAL DIFF FLAG NO
[2023-07-30 07:21] LABS: Basophils Percent Auto 0.6 % (0-2); Eosinophils Absolute Auto 0.3 X10*3/uL (0.0-0.4); Eosinophils Percent Auto 4.5 % (0-4); Hematocrit 40.2 % (37.0-47.0); Hemoglobin 14.1 g/dl (12.0-16.0); Imm Gran Abs Auto 0.01 X10*3/uL (0.00-0.03); Imm Gran Pct Auto 0.1 % (0.0-0.4); Lymphocytes Absolute Auto 2.4 X10*3/uL (1.2-4.9); Lymphocytes Percent Auto 34.7 % (20-40); Mean Corpuscular HGB Conc 35.1 g/dl (31.0-35.0); Mean Corpuscular Hemoglobin 31.3 pg (27.0-33.0); Mean Corpuscular Volume 89.3 fL (80.0-98.0); Mean Platelet Volume 11.6 fL (9.4-12.3); Monocytes Absolute Auto 0.5 X10*3/uL (0.1-1.2); Monocytes Percent Auto 7.3 % (2-11); Neutrophils Absolute Auto 3.7 x10*3/uL (2.0-8.3); Neutrophils Percent Auto 52.8 % (45-73); Platelet Count 307 X10*3/uL (160-400); Red Cell Distribution Width 12.5 % (11.0-16.0)
[2023-07-30 07:24] LABS: Alanine Aminotransferase 9 U/L (0-31); Albumin Level 3.8 g/dL (3.5-5.0); Alkaline Phosphatase 60 U/L (39-117); Anion Gap 13 (12-20); Aspartate Amino Transferase 15 U/L (5-31); Bilirubin Total 0.4 mg/dL (0.0-1.0); Blood Urea Nitrogen 10 mg/dL (9-16); Calcium 9.6 mg/dL (8.4-10.2); Carbon Dioxide 25 mmol/L (22-29); Chloride 105 mmol/L (96-108); Creatinine Clr Calc Pharmacy 59.5; Estimated Glomerular Filt Rate > 60; Glucose Random 99 mg/dL (60-115); Potassium 4.1 mmol/L (3.3-5.1); Sodium 139 mmol/L (135-145); Total Protein 6.9 g/dL (6.5-8.0)
[2023-07-30] MEDS: Ascorbic Acid 500 MG TABLET PO (07:59)
[2023-07-30] MEDS: Cholecalciferol (Vitamin D3) 25 MCG TABLET 50 MCG PO (07:59)
[2023-07-30] MEDS: Apixaban 5 MG TABLET PO ×2 (07:59→20:42)
[2023-07-30] MEDS: 0.9 % Sodium Chloride Flush 3 ML SYRINGE IVFLUSH ×2 (08:00→20:42)
--- NOTE | 2023-07-30 09:39 | PM.CNCAR ---
History of Present Illness History of Present Illness Date of Service: 07/30/23 Requesting physician: Luís Espinal Consult reason: atrial fibrillation Chief complaint: New onset atrial fibrillation Narrative: I was consulted to see Yaritza in cardiology consultation today for atrial fibrillation. She has a pleasant 72-year-old female with long lasting history of palpitations in the past had been diagnosed with PACs. She had a cardiac catheterization which had shown nonobstructive coronary artery disease. She has no other risk factors. Sunday I would she started having symptoms of palpitation and notices heart rate was going rapid. This would happen intermittently and she could not sleep all light. By Sunday morning she continues to have symptoms of palpitation decided to come to the emergency room. In the emergency room she was noted to be in atrial fibrillation with rapid ventricular response at a rate was control with Cardizem and last night the Cardizem drip was turned off. She was started on p.o. metoprolol this morning with heart rate remains 100-120. This morning she feels better and symptoms of palpitation are not present. She denies any associated shortness of breath, fatigue, lightheadedness, syncope. She has no prior diagnosis of atrial fibrillation. She has no history of congestive heart failure stroke. Review of Systems Constitutional: Constitutional: Reports no additional constitutional complaints Eyes: Eyes: Reports no additional eye complaints Cardiovascular: Cardiovascular: Denies chest pain, Reports irregular heart rhythm, Denies leg edema, Denies lightheadedness, Reports palpitations and Denies dyspnea Respiratory: Respiratory: Reports no additional respiratory complaints and Denies dyspnea Gastrointestinal: Gastrointestinal: Reports no additional gastrointestinal complaints Genitourinary: Genitourinary: Reports no additional female genitourinary complaints Musculoskeletal: Musculoskeletal: Reports no additional musculoskeletal complaints Integumentary/Breasts: Skin/Breast: Reports system reviewed and no additional complaints, except as docu Neurologic: Reports system reviewed and no additional complaints, except as documented Psychiatric: Psychiatric: Reports no additional psychiatric complaints Endocrine: Endocrine: Reports palpitations PMFSH Past Medical History Medical History Left atrial dilatation Orthostatic lightheadedness Pain and swelling of left lower leg Exertional dyspnea Swelling of joint of left hand Pain in joint of left hand Overweight (BMI 25.0-29.9) Allergic rhinitis Pure hypercholesterolemia Osteoarthritis Dyslipidemia Vitamin D deficiency Age related osteoporosis Family History Family History Mother Prediabetes Hyperlipidemia Hypertension Father No problems noted. Surgical History Surgical History Status post cardiac catheterization History of cardiac cath Hx of cataract removal with insertion of prosthetic lens (~12/2014) Hx of section Social History Social History Household Members: Spouse Housing: House Do you presently have visiting nurse or other home services: No Alcohol intake: current Alcohol intake frequency: holidays/special occasions only Patient Tobacco Use Status: Never used Tobacco e-Cigarette/Vaping Use: Never Used Second Hand Smoke Exposure: Yes service: No Current occupational status: retired Cognitive needs: No Hearing needs: Yes Vision needs: No Meds Allergies Allergy/AdvReac Type Severity Reaction Status Date / Time Sulfa (Sulfonamide Allergy Intermediate Swollen Verified 07/29/23 09:44 Antibiotics) red eyes cefuroxime AdvReac Intermediate Stomach Uncoded 07/29/23 09:44 Upset Active Medications: Current Medications Acetaminophen (Acetaminophen 325 Mg Tablet) 650 mg PO Q6H PRN PRN Reason: Pain, Mild (Pain Scale 1-3) Apixaban (Apixaban 5 Mg Tablet) 5 mg PO BID [facility] Last Admin: 07/30/23 07:59 Dose: 5 mg Ascorbic Acid (Ascorbic Acid 500 Mg Tablet) 500 mg PO DAILY [facility] Last Admin: 07/30/23 07:59 Dose: 500 mg Diltiazem HCl 125 mg/ Sodium (Chloride) 125 mls @ 0 mls/hr IVCONT .Q0M [facility]; Protocol Last Titration: 07/30/23 09:27 Dose: 5 mg/hr, 5 mls/hr Magnesium Hydroxide (Milk Of Magnesia 30 Ml Oral.Susp) 30 ml PO DAILY PRN PRN Reason: Constipation Metoprolol Tartrate (Metoprolol Tartrate 12.5 Mg Halftab) 12.5 mg PO BID [facility]; Protocol Last Admin: 07/30/23 08:00 Dose: 12.5 mg Ondansetron HCl (Ondansetron Hcl 4 Mg/2 Ml Vial) 4 mg IVPUSH Q8H PRN PRN Reason: Nausea and Vomiting Sodium Chloride (0.9 % Sodium Chloride Flush 3 Ml Syringe) 3 ml IVFLUSH QSHIFT [facility] Last Admin: 07/30/23 08:00 Dose: 3 ml Vitamin D (Cholecalciferol (Vitamin D3) 25 Mcg Tablet) 50 mcg PO DAILY [facility] Last Admin: 07/30/23 07:59 Dose: 50 mcg Home Medications Medication Instructions Recorded Confirmed Last Taken Type ascorbate calcium (vitamin C) 500 500 mg PO DAILY 04/20/20 07/29/23 07/27/23 History mg tablet Physical Exam Vital Signs: Vital Signs: Last Vital Signs Temp 97.4 F 07/30/23 07:40 Pulse 94 07/30/23 07:40 Resp 18 07/30/23 07:40 BP 140/87 H 07/30/23 07:40 Pulse Ox 96 07/30/23 07:40 O2 Del Method Room Air 07/30/23 07:40 BMI result Body Mass Index 25.9 Const: General: cooperative, comfortable, no acute distress, alert, awake and Physically active Nutritional Appearance: average body habitus Orientation/consciousness: patient oriented x3 Limitations: no limitations HEENT: Head: Yes normocephalic and Yes atraumatic Neck: Neck: Yes trachea midline, Yes supple and Yes no JVD Resp: Effort & Inspection: normal respiratory effort Auscultation: clear to auscultation bilaterally Cardio: Jugular venous distension: no JVD Rate: tachycardic Rhythm: abnormal rhythm irregularly irregular Heart sounds: S1 normal heart sound present, S2 normal heart sound present, no click, no gallops and no murmurs Peripheral pulses: Peripheral pulses 2+ throughout GI: Auscultation: normal bowel sounds Skin: General skin exam: no rashes or lesions noted Neuro: General: patient oriented x3 and no focal motor deficits Extrem: General: Yes no clubbing, cyanosis or edema Psych: Appearance: grossly normal Objective Labs and Meds 07/30/23 06:40 07/30/23 06:40 Lab results: Laboratory Results - last 24 hr 07/29/23 07/29/23 07/29/23 10:07 10:17 12:35 WBC 8.1 RBC 4.80 Hgb 15.1 Hct 43.5 MCV 90.6 MCH 31.5 MCHC 34.7 RDW 12.3 Plt Count 336 MPV 11.5 Immature Gran % (Auto) 0.2 Neut % (Auto) 69.3 Lymph % (Auto) 21.3 [place] % (Auto) 6.8 Eos % (Auto) 1.7 Baso % (Auto) 0.7 Lymph # (Auto) 1.7 [place] # (Auto) 0.6 Eos # (Auto) 0.1 Baso # (Auto) 0.1 Abs Immat Gran (auto) 0.02 Absolute Neuts (auto) 5.6 Absolute Nucleated RBC 0.000 Nucleated RBC % (auto) 0.0 D-Dimer High Sensitivty 225 Sodium 137 Potassium 3.7 Chloride 103 Carbon Dioxide 23 Anion Gap 15 BUN 11 Creatinine 0.84 Estim Creat Clear Calc 49.4 Estimated GFR > 60 Random Glucose 182 H Calcium 9.7 Magnesium 1.8 Total Bilirubin 0.3 Direct Bilirubin 0.1 AST 16 ALT 10 Alkaline Phosphatase 63 Troponin I High Sens 22.4 H D B-Natriuretic Peptide 251 H Total Protein 7.6 Albumin 4.2 Lipase 27 TSH 2.40 Urine Color Yellow Urine Appearance Clear Urine pH 7.0 Ur Specific [place] 1.010 Urine Protein Negative Urine Glucose (UA) Negative Urine Ketones Negative Urine Blood Negative Urine Nitrite Negative Ur Leukocyte Esterase Small (1+) H Urine RBC 0-2 Urine WBC 0-5 Ur Squamous Epith Cells 0-2 Urine Bacteria None Seen Hyaline Casts 0-2 COVID-19 (JOHN) Negative COVID-19 Clin Com See Note 07/30/23 06:40 WBC 7.0 RBC 4.50 Hgb 14.1 Hct 40.2 MCV 89.3 MCH 31.3 MCHC 35.1 H RDW 12.5 Plt Count 307 MPV 11.6 Immature Gran % (Auto) 0.1 Neut % (Auto) 52.8 Lymph % (Auto) 34.7 [place] % (Auto) 7.3 Eos % (Auto) 4.5 H Baso % (Auto) 0.6 Lymph # (Auto) 2.4 [place] # (Auto) 0.5 Eos # (Auto) 0.3 Baso # (Auto) 0.0 Abs Immat Gran (auto) 0.01 Absolute Neuts (auto) 3.7 Absolute Nucleated RBC 0.000 Nucleated RBC % (auto) 0.0 D-Dimer High Sensitivty Sodium 139 Potassium 4.1 Chloride 105 Carbon Dioxide 25 Anion Gap 13 BUN 10 Creatinine 0.70 Estim Creat Clear Calc 59.5 Estimated GFR > 60 Random Glucose 99 Calcium 9.6 Magnesium Total Bilirubin 0.4 Direct Bilirubin AST 15 ALT 9 Alkaline Phosphatase 60 Troponin I High Sens B-Natriuretic Peptide Total Protein 6.9 Albumin 3.8 Lipase TSH Urine Color Urine Appearance Urine pH Ur Specific [place] Urine Protein Urine Glucose (UA) Urine Ketones Urine Blood Urine Nitrite Ur Leukocyte Esterase Urine RBC Urine WBC Ur Squamous Epith Cells Urine Bacteria Hyaline Casts COVID-19 (JOHN) COVID-19 Clin Com EKG shows atrial fibrillation with rapid ventricular response with right bundle-branch block Imaging Radiologist's impression: Impressions Chest X-Ray 07/29/23 10:15 IMPRESSION: Slightly increase infectious/inflammatory small airways disease compared to 07/14/2023. Assessment and Plan (1) Atrial fibrillation with rapid ventricular response: Status: Acute New onset atrial fibrillation in this elderly woman, symptomatic. Rate is not adequately controlled. Will pursue rate control with IV Cardizem drip at 5 mg an hour and continue p.o. metoprolol. If she cardioverted by rate control that will be that would be ideal, however she does not convert to sinus rhythm by rate control will pursue ELIGIO guided cardioversion tomorrow. Please keep her NPO. We discussed in details the pathophysiology of atrial fibrillation, the etiology etc.. CHADSVASc score of 2. Continue with Eliquis and probably long-term. We discussed in details with the process of transesophageal echocardiogram and reason for including risk, benefits, alternatives. Also discussed the procedure of synchronized cardioversion including risk, benefits, alternatives. She understands and agrees. Most likely require rhythm control approach and will probably use class 1 C agent given that she has no significant coronary artery disease. Will follow with her Procedures Date of Service Date of Service: 07/30/23
--- NOTE | 2023-07-30 10:12 | MHC.CM.PN ---
IMM 07/30/23, Pt lives with her , she completed HCP form here and named her , added to chart. She is independent with ADL's, does not use home health services or medical equipment. Her will transport home upon DC, PCP: Dr. Esparza, DC plan is home, self care. CM to follow and assist as needed with DC plan.
--- NOTE | 2023-07-30 12:48 | HO.PM.IMPN ---
Subjective Subjective Date of Service: 07/30/23 Interval History: Remains in AFib. Rate control with Cardizem drip. Voices no cardiac complaints Review of Systems Denies chest pain Denies shortness of breath Denies nausea vomiting diarrhea Denies fever chills Physical Exam Vital Signs: Vital Signs: Last Vital Signs Temp 96.9 F 07/30/23 11:46 Pulse 89 07/30/23 11:46 Resp 18 07/30/23 11:46 BP 103/70 07/30/23 11:46 Pulse Ox 96 07/30/23 11:46 O2 Del Method Room Air 07/30/23 11:46 BMI result Body Mass Index 25.9 Const: Other: Awake alert oriented x3 Resp: Other: Clear to auscultation bilaterally no rales rhonchi or wheezes Cardio: Other: Irregular/irregular; no S4; positive S1-S2; no S3 murmurs rubs or gallops GI: Other: Soft nontender nondistended normoactive bowel sounds Neuro: Other: Cranial nerves 2-12 grossly intact as tested. Motor is 5/5 all extremities. Sensation is intact. Cognition appropriate. Gait stable Extrem: Other: No edema bilaterally Objective Data Active Medications Acetaminophen (Acetaminophen 325 Mg Tablet) 650 mg PO Q6H PRN PRN Reason: Pain, Mild (Pain Scale 1-3) Apixaban (Apixaban 5 Mg Tablet) 5 mg PO BID [facility] Last Admin: 07/30/23 07:59 Dose: 5 mg Documented By: LINDA Ascorbic Acid (Ascorbic Acid 500 Mg Tablet) 500 mg PO DAILY [facility] Last Admin: 07/30/23 07:59 Dose: 500 mg Documented By: LINDA Diltiazem HCl 125 mg/ Sodium (Chloride) 125 mls @ 0 mls/hr IVCONT .Q0M [facility]; Protocol Last Titration: 07/30/23 09:27 Dose: 5 mg/hr, 5 mls/hr Documented By: LINDA Magnesium Hydroxide (Milk Of Magnesia 30 Ml Oral.Susp) 30 ml PO DAILY PRN PRN Reason: Constipation Metoprolol Tartrate (Metoprolol Tartrate 12.5 Mg Halftab) 12.5 mg PO BID [facility]; Protocol Last Admin: 07/30/23 08:00 Dose: 12.5 mg Documented By: LINDA Ondansetron HCl (Ondansetron Hcl 4 Mg/2 Ml Vial) 4 mg IVPUSH Q8H PRN PRN Reason: Nausea and Vomiting Sodium Chloride (0.9 % Sodium Chloride Flush 3 Ml Syringe) 3 ml IVFLUSH QSHIFT [facility] Last Admin: 07/30/23 08:00 Dose: 3 ml Documented By: LINDA Vitamin D (Cholecalciferol (Vitamin D3) 25 Mcg Tablet) 50 mcg PO DAILY [facility] Last Admin: 07/30/23 07:59 Dose: 50 mcg Documented By: LINDA Labs 07/30/23 06:40 07/30/23 06:40 Labs: Laboratory Results - last 24 hr 07/29/23 07/30/23 12:35 06:40 MCV 89.3 MCH 31.3 MCHC 35.1 H RDW 12.5 Plt Count 307 MPV 11.6 Immature Gran % (Auto) 0.1 Neut % (Auto) 52.8 Lymph % (Auto) 34.7 [place] % (Auto) 7.3 Eos % (Auto) 4.5 H Baso % (Auto) 0.6 Lymph # (Auto) 2.4 [place] # (Auto) 0.5 Eos # (Auto) 0.3 Baso # (Auto) 0.0 Abs Immat Gran (auto) 0.01 Absolute Neuts (auto) 3.7 Absolute Nucleated RBC 0.000 Nucleated RBC % (auto) 0.0 Anion Gap 13 Estim Creat Clear Calc 59.5 Estimated GFR > 60 Random Glucose 99 Calcium 9.6 Total Bilirubin 0.4 AST 15 ALT 9 Alkaline Phosphatase 60 Total Protein 6.9 Albumin 3.8 COVID-19 (JOHN) Negative COVID-19 Clin Com See Note Microbiology Microbiology Results: Microbiology 07/29/23 Unknown Urine Culture - Preliminary Urine clean catch - Urine christensen top Culture too young to evaluate. Assessment and Plan (1) Atrial fibrillation with rapid ventricular response: Status: Acute Plan 72-year-old female with essentially no past medical history presents with palpitations that began 24 hours prior to her presentation to the ER. She states she is gotten these intermittently in the past and was seen in the ER however examined and normal sinus rhythm. Scheduled for outpatient Holter monitoring however developed this episode. She was seen in the emergency room and placed on a Cardizem drip. 1. Atrial fibrillation with rapid ventricular response -will continue Cardizem drip as ordered... Acceptable rate control -Eliquis 5 mg b.i.d. -follow CBC/renals/divalents -cardiology consult appreciated -NPO after midnight for possible ELIGIO/cardioversion in a.m. Full code Eliquis Requires ongoing hospitalization for IV Cardizem to controlled ventricular response of AFib. Also requires specialty consultation and intervention Quality Stroke Does the patient have a stroke diagnosis?: No VTE Prior VTE?: No VTE Risk Level:: Medical - moderate - high VTE Device Contraindication: Treatment Not Indicated VTE Drug Contraindication: N/A - Med Ordered
[2023-07-30] MEDS: dilTIAZem HCL 125 MG in 0.9 % Sodium Chloride 100 ML IVCONT (16:57)
--- NOTE | 2023-07-30 22:43 | PC.NURSE ---
Pt heart rate 45-60s, afib. Cardizem gtt placed on hold.
[2023-07-31] VITALS (9 sets, daily range): BP systolic 85–140; BP diastolic 44–95; PULSE 51–98; RESP 16–18; TEMP 36.1–36.6; O2SAT 95–98
[2023-07-31 07:03] LABS: MANUAL DIFF FLAG NO
[2023-07-31 07:22] LABS: Basophils Percent Auto 0.6 % (0-2); Eosinophils Absolute Auto 0.4 X10*3/uL (0.0-0.4); Eosinophils Percent Auto 5.6 % (0-4); Hematocrit 40.3 % (37.0-47.0); Imm Gran Abs Auto 0.02 X10*3/uL (0.00-0.03); Imm Gran Pct Auto 0.3 % (0.0-0.4); Lymphocytes Absolute Auto 2.3 X10*3/uL (1.2-4.9); Lymphocytes Percent Auto 33.5 % (20-40); Mean Corpuscular HGB Conc 34.7 g/dl (31.0-35.0); Mean Corpuscular Volume 89.2 fL (80.0-98.0); Mean Platelet Volume 11.7 fL (9.4-12.3); Monocytes Absolute Auto 0.6 X10*3/uL (0.1-1.2); Neutrophils Absolute Auto 3.6 x10*3/uL (2.0-8.3); Platelet Count 294 X10*3/uL (160-400); Red Blood Count 4.52 X10*6/uL (4.20-5.50); Red Cell Distribution Width 12.5 % (11.0-16.0)
[2023-07-31 07:34] LABS: Alanine Aminotransferase 9 U/L (0-31); Albumin Level 3.8 g/dL (3.5-5.0); Alkaline Phosphatase 56 U/L (39-117); Anion Gap 13 (12-20); Aspartate Amino Transferase 15 U/L (5-31); Bilirubin Total 0.5 mg/dL (0.0-1.0); Blood Urea Nitrogen 15 mg/dL (9-16); Calcium 9.3 mg/dL (8.4-10.2); Carbon Dioxide 26 mmol/L (22-29); Chloride 104 mmol/L (96-108); Creatinine Clr Calc Pharmacy 60.4; Estimated Glomerular Filt Rate > 60; Glucose Fasting 89 mg/dL (60-99); Potassium 3.9 mmol/L (3.3-5.1); Sodium 139 mmol/L (135-145); Total Protein 6.8 g/dL (6.5-8.0)
[2023-07-31] MEDS: Ascorbic Acid 500 MG TABLET PO (08:59)
[2023-07-31] MEDS: Metoprolol Tartrate 12.5 MG HALFTAB PO (08:59)
[2023-07-31] MEDS: Apixaban 5 MG TABLET PO (08:59)
[2023-07-31] MEDS: Cholecalciferol (Vitamin D3) 25 MCG TABLET 50 MCG PO (08:59)
--- NOTE | 2023-07-31 10:41 | P.PNCA_ITS ---
Subjective Subjective Date of Service: 07/31/23 Principal diagnosis: Persistent atrial fibrillation Interval history: Patient persistent atrial fibrillation rapid ventricular rate today. Again the Cardizem drip was stopped last night. Patient having no major symptoms or signs of cardiac decompensation. Review of Systems Review of Systems Yes all other systems are reviewed and are negative Physical Exam Vital Signs: Last Vital Signs Temp 97.8 F 07/31/23 07:49 Pulse 79 07/31/23 07:49 Resp 18 07/31/23 07:49 BP 140/95 H 07/31/23 07:49 Pulse Ox 97 07/31/23 07:49 O2 Del Method Room Air 07/31/23 07:49 BMI result Body Mass Index 25.9 Const General: cooperative, comfortable, no acute distress, alert, awake and Physically active Nutritional Appearance: average body habitus Orientation/consciousness: patient oriented x3 Limitations: no limitations HEENT Head: Yes normocephalic and Yes atraumatic Neck Neck: Yes trachea midline, Yes supple and Yes no JVD Resp Effort & Inspection: normal respiratory effort Auscultation: clear to auscultation bilaterally Cardio Jugular venous distension: no JVD Rate: tachycardic Rhythm: abnormal rhythm irregularly irregular Heart sounds: S1 normal heart sound present, S2 normal heart sound present, no click, no gallops and no murmurs Peripheral pulses: Peripheral pulses 2+ throughout GI Auscultation: normal bowel sounds Skin General skin exam: no rashes or lesions noted Neuro General: patient oriented x3 and no focal motor deficits Extrem General: Yes no clubbing, cyanosis or edema Psych Appearance: grossly normal Objective Labs and Meds 07/31/23 05:57 07/31/23 05:57 Lab results: Laboratory Results - last 24 hr 07/31/23 05:57 WBC 7.0 RBC 4.52 Hgb 14.0 Hct 40.3 MCV 89.2 MCH 31.0 MCHC 34.7 RDW 12.5 Plt Count 294 MPV 11.7 Immature Gran % (Auto) 0.3 Neut % (Auto) 52.0 Lymph % (Auto) 33.5 [place] % (Auto) 8.0 Eos % (Auto) 5.6 H Baso % (Auto) 0.6 Lymph # (Auto) 2.3 [place] # (Auto) 0.6 Eos # (Auto) 0.4 Baso # (Auto) 0.0 Abs Immat Gran (auto) 0.02 Absolute Neuts (auto) 3.6 Absolute Nucleated RBC 0.000 Nucleated RBC % (auto) 0.0 Sodium 139 Potassium 3.9 Chloride 104 Carbon Dioxide 26 Anion Gap 13 BUN 15 Creatinine 0.69 Estim Creat Clear Calc 60.4 Estimated GFR > 60 Fasting Glucose 89 Calcium 9.3 Total Bilirubin 0.5 AST 15 ALT 9 Alkaline Phosphatase 56 Total Protein 6.8 Albumin 3.8 Progress Note: A&P Assessment and plan (1) Atrial fibrillation with rapid ventricular response: Status: Acute Assessment and Plan: Persistent atrial fibrillation despite Cardizem drip although this was discontinued last night. Is new onset atrial fibrillation. She has had intermittent episode of palpitation is best to pursue rhythm control approach with a ELIGIO guided approach rule out intracardiac thrombi. She is scheduled later in the day for the same. Continue maintain NPO. Most likely will require antiarrhythmic drug support as outpatient. Given nonobstructive CAD will start with flecainide therapy. Continue full oral anticoagulation with Eliquis. Pathophysiology of atrial fibrillation was discussed. Risks, benefits, alternatives to ELIGIO and synchronized cardioversion were discussed. She understands agrees. Will follow with you Time Spent With Patient Time: Total time managing care of this patient today ____ minutes. Progress Note: Quality Stroke Does the patient have a stroke diagnosis?: No Procedures Date of Service Date of Service: 07/31/23
--- NOTE | 2023-07-31 12:19 | HO.PM.IMPN ---
Subjective Subjective Date of Service: 07/31/23 Interval History: Remains in AFib on Cardizem drip. Rate fairly well controlled Review of Systems Denies chest pain Denies shortness of breath Denies nausea vomiting diarrhea Denies fever chills Physical Exam Vital Signs: Vital Signs: Last Vital Signs Temp 97.4 F 07/31/23 10:59 Pulse 79 07/31/23 10:59 Resp 18 07/31/23 10:59 BP 125/82 07/31/23 10:59 Pulse Ox 97 07/31/23 10:59 O2 Del Method Room Air 07/31/23 10:59 BMI result Body Mass Index 25.9 Const: Other: Awake alert oriented x3 Resp: Other: Clear to auscultation bilaterally no rales rhonchi or wheezes Cardio: Other: Irregular/irregular; no S4; positive S1-S2; no S3 murmurs rubs or gallops GI: Other: Soft nontender nondistended normoactive bowel sounds Neuro: Other: Cranial nerves 2-12 grossly intact as tested. Motor is 5/5 all extremities. Sensation is intact. Cognition appropriate. Gait stable Extrem: Other: No edema bilaterally Objective Data Active Medications Acetaminophen (Acetaminophen 325 Mg Tablet) 650 mg PO Q6H PRN PRN Reason: Pain, Mild (Pain Scale 1-3) Apixaban (Apixaban 5 Mg Tablet) 5 mg PO BID [facility] Last Admin: 07/31/23 08:59 Dose: 5 mg Documented By: LINDA Ascorbic Acid (Ascorbic Acid 500 Mg Tablet) 500 mg PO DAILY [facility] Last Admin: 07/31/23 08:59 Dose: 500 mg Documented By: LINDA Diltiazem HCl 125 mg/ Sodium (Chloride) 125 mls @ 0 mls/hr IVCONT .Q0M [facility]; Protocol Last Titration: 07/31/23 09:42 Dose: 10 mg/hr, 10 mls/hr Documented By: LINDA Magnesium Hydroxide (Milk Of Magnesia 30 Ml Oral.Susp) 30 ml PO DAILY PRN PRN Reason: Constipation Metoprolol Tartrate (Metoprolol Tartrate 12.5 Mg Halftab) 12.5 mg PO BID [facility]; Protocol Last Admin: 07/31/23 08:59 Dose: 12.5 mg Documented By: LINDA Ondansetron HCl (Ondansetron Hcl 4 Mg/2 Ml Vial) 4 mg IVPUSH Q8H PRN PRN Reason: Nausea and Vomiting Sodium Chloride (0.9 % Sodium Chloride Flush 3 Ml Syringe) 3 ml IVFLUSH QSHIFT [facility] Last Admin: 07/31/23 09:00 Dose: Not Given Documented By: LINDA Non-Admin Reason: IV Running Vitamin D (Cholecalciferol (Vitamin D3) 25 Mcg Tablet) 50 mcg PO DAILY [facility] Last Admin: 07/31/23 08:59 Dose: 50 mcg Documented By: LINDA Labs 07/31/23 05:57 07/31/23 05:57 Labs: Laboratory Results - last 24 hr 07/31/23 05:57 MCV 89.2 MCH 31.0 MCHC 34.7 RDW 12.5 Plt Count 294 MPV 11.7 Immature Gran % (Auto) 0.3 Neut % (Auto) 52.0 Lymph % (Auto) 33.5 [place] % (Auto) 8.0 Eos % (Auto) 5.6 H Baso % (Auto) 0.6 Lymph # (Auto) 2.3 [place] # (Auto) 0.6 Eos # (Auto) 0.4 Baso # (Auto) 0.0 Abs Immat Gran (auto) 0.02 Absolute Neuts (auto) 3.6 Absolute Nucleated RBC 0.000 Nucleated RBC % (auto) 0.0 Anion Gap 13 Estim Creat Clear Calc 60.4 Estimated GFR > 60 Fasting Glucose 89 Calcium 9.3 Total Bilirubin 0.5 AST 15 ALT 9 Alkaline Phosphatase 56 Total Protein 6.8 Albumin 3.8 Microbiology Microbiology Results: Microbiology 07/29/23 Unknown Urine Culture - Preliminary Urine clean catch - Urine christensen top Culture too young to evaluate. Assessment and Plan (1) Atrial fibrillation with rapid ventricular response: Status: Acute Plan 72-year-old female with essentially no past medical history presents with palpitations that began 24 hours prior to her presentation to the ER. She states she is gotten these intermittently in the past and was seen in the ER however examined and normal sinus rhythm. Scheduled for outpatient Holter monitoring however developed this episode. She was seen in the emergency room and placed on a Cardizem drip. 1. Atrial fibrillation with rapid ventricular response -will continue Cardizem drip as ordered... Acceptable rate control -Eliquis 5 mg b.i.d. -for cardioversion later today -follow CBC/renals/divalents -NPO Full code Eliquis Requires ongoing hospitalization for IV Cardizem to controlled ventricular response of AFib. Also requires specialty consultation and intervention Quality Stroke Does the patient have a stroke diagnosis?: No VTE Prior VTE?: No VTE Risk Level:: Medical - moderate - high VTE Device Contraindication: Treatment Not Indicated VTE Drug Contraindication: N/A - Med Ordered
--- NOTE | 2023-07-31 12:45 | MHC.CM.PN ---
EMR REVIEWED, PER HOSPITALIST PLAN FOR CARDIOVERSION TODAY, ANTIC PT WILL BE CLEARED FOR DC TOMORROW 08/01, CM WILL CONT TO FOLLOW DC NEEDS.
--- NOTE | 2023-07-31 14:05 | CA_ITS ---
Transesophageal Echocardiogram Patient (Last, First, Middle): Yaritza Reich A Gender: Female Date of : 1950 Age: 72 Procedure Date: 07/31/2023 Procedure Type: Transesophageal Echocardiogram Location: [facility] [place] Height: 154.94 cm Weight: 61.69 kg BSA: 1.60 m2 Heart Rate: [address] Consultant: TO Referring MD: Tomer Morales MD Supply Service Worker: Tomer Morales MD Symptoms: Pre cardioversion Study Quality: Adequate ECG Rhythm: Atrial Fibrillation Conclusions: - 1. No intracardiac thrombi, masses or vegetations 2. Normal LV ejection fraction of 60-65% 3. No intracardiac shunting 4. Cardiac valvular Dopplers within normal limits 5. Mild atherosclerotic changes noted in the descending and arch of the aorta Findings Procedure Information Consent was obtained prior to the procedure. Pre ELIGIO oral cavity was checked and revealed no overcrowding. The adult 3D probe was passed with no difficulty. This was a technically good study. Left Ventricle Normal left ventricular size, thickness, and systolic function. The visually estimated ejection fraction is between 60-65%. Diastolic function is indeterminate on the basis of available data. Right Ventricle Normal right ventricular cavity size and systolic function. Atria The left atrium is mildly dilated. There is no evidence of interatrial shunt. There is no evidence of a patent foramen ovale. There is no evidence of an atrial septal defect. There is no evidence of thrombus or mass in the left atrium. the left atrium was identified multiple view. There is evidence of smoke formation within the left atrium. The left atrial appendage was identified multiple view. Then a thrombi or masses in the left atrium or left atrial appendage. The left atrial appendage ejection velocity was diminished. The left upper, right upper and right lower pulmonary vein drain normally into the left atrium. The right atrium is mildly dilated. There is no evidence of thrombus or mass in the right atrium. the right atrium was identified multiple view. There is no thrombi masses in the right atrium. The IVC and SVC drain normally into the right atrium. Aortic Valve There is mild calcification of the aortic valve. There is no aortic valve stenosis. There is no aortic valve regurgitation. Mitral Valve Normal mitral valve structure and function. There is trace mitral valve regurgitation. There is no mitral valve stenosis. Pulmonic Valve The pulmonic valve is likely normal. There is trace pulmonic valve regurgitation. Tricuspid Valve Normal tricuspid valve structure. There is mild tricuspid valve regurgitation. The right ventricular systolic pressure is not calculated. Great Vessels All visible segments of the aorta are normal in size. Small plaque is seen in the arch and descending thoracic aorta. Venous The inferior vena cava is normal in size. Pericardium/Pleural There is no evidence of pericardial effusion. Prior Study Comparison delay in reporting due to technical issues Updated in Other Vendor System with Status of Final Tomer Morales MD electronically signed on 08/03/2023 12:19:21 PM with status of Final
--- NOTE | 2023-07-31 14:15 | MHC.SHP ---
Pre-Procedural Eval Section A - 24 Hr Update-Section A only Date of Service: 07/31/23 The patient is an INPATIENT: Yes Changes since office visit: Yes Patient answered all questions; No Cold of Flu in the past 2 weeks, No New Medical Problems and No Changes in Medication The patient has been examined within 24 hours of the surgical procedure. The History & Physical has been completed within 30 days and I have reviewed it.: Yes Section B - Complete if H&P > 30 days Chief Complaint: New onset atrial fibrillation Allergies: Allergies Allergy/AdvReac Type Severity Reaction Status Date / Time Sulfa (Sulfonamide Allergy Intermediate Swollen Verified 07/31/23 13:57 Antibiotics) red eyes cefuroxime AdvReac Intermediate Stomach Uncoded 07/31/23 13:57 Upset Plan I have reviewed the history and physical and performed a pertinent physical examination on my patient. No changes have occurred unless specified. Time Spent With Patient Time: Total time managing care of this patient today ____ minutes.
--- NOTE | 2023-07-31 14:21 | PC.NURSE ---
Patient arrived to preop. #18 PRN angio left AC asymptomatic, flushed well. #20 angio right FA with Cardizem drip running. Site red, painful, swollen, and warm. IV removed. New angio #20 placed in right hand, Cardizem drip moved to that site. Running with no issues.
--- NOTE | 2023-07-31 14:38 | P.CONAN_ITS ---
[facility] Active Problems Active Problems: All Active Problems (Updated 07/31/23 @ 13:57 by Neeta Aggarwal) Atrial fibrillation with rapid ventricular response (Acute) Neck pain (Acute) Personal history of kidney stones (Acute) Flank pain (Acute) PAC (premature atrial contraction) (Acute) Dysuria (Acute) UTI symptoms (Acute) Palpitations (Acute) Eustachian tube dysfunction (Acute) Postnasal drip (Acute) Right otitis media (Acute) Breast cancer screening (Acute) Sinusitis (Acute) Abdominal pain (Acute) SOB (shortness of breath) on exertion (Acute) History of cardiac cath (Acute) Status post cardiac catheterization (Acute) Left atrial dilatation (Acute) Orthostatic lightheadedness (Acute) Pain and swelling of left lower leg (Acute) Exertional dyspnea (Acute) Swelling of joint of left hand (Acute) Pain in joint of left hand (Acute) Overweight (BMI 25.0-29.9) (Acute) Allergic rhinitis (Acute) Pure hypercholesterolemia (Acute) Osteoarthritis (Acute) Dyslipidemia (Acute) Vitamin D deficiency (Acute) Age related osteoporosis (Acute) Past Medical History Medical History History of transesophageal echocardiography (ELIGIO) Left atrial dilatation Orthostatic lightheadedness Pain and swelling of left lower leg Exertional dyspnea Swelling of joint of left hand Pain in joint of left hand Overweight (BMI 25.0-29.9) Allergic rhinitis Pure hypercholesterolemia Osteoarthritis Dyslipidemia Vitamin D deficiency Age related osteoporosis Family History Family History Mother Prediabetes Hyperlipidemia Hypertension Father No problems noted. Surgical History Surgical History Status post cardiac catheterization History of cardiac cath Hx of cataract removal with insertion of prosthetic lens (~12/2014) Hx of section History of Problems with Anesthesia: Yes Social History Social History Household Members: Spouse Housing: House Do you presently have visiting nurse or other home services: No Alcohol intake: current Alcohol intake frequency: a few times a month Patient Tobacco Use Status: Never used Tobacco e-Cigarette/Vaping Use: Never Used Second Hand Smoke Exposure: Yes service: No Current occupational status: retired Cognitive needs: No Hearing needs: Yes Vision needs: No Meds Allergies Allergy/AdvReac Type Severity Reaction Status Date / Time Sulfa (Sulfonamide Allergy Intermediate Swollen Verified 07/31/23 13:57 Antibiotics) red eyes cefuroxime AdvReac Intermediate Stomach Uncoded 07/31/23 13:57 Upset Active Medications: Current Medications Acetaminophen (Acetaminophen 325 Mg Tablet) 650 mg PO Q6H PRN PRN Reason: Pain, Mild (Pain Scale 1-3) Apixaban (Apixaban 5 Mg Tablet) 5 mg PO BID [facility] Last Admin: 07/31/23 08:59 Dose: 5 mg Ascorbic Acid (Ascorbic Acid 500 Mg Tablet) 500 mg PO DAILY [facility] Last Admin: 07/31/23 08:59 Dose: 500 mg Diltiazem HCl 125 mg/ Sodium (Chloride) 125 mls @ 0 mls/hr IVCONT .Q0M [facility]; Protocol Last Titration: 07/31/23 10:30 Dose: 5 mg/hr, 5 mls/hr Magnesium Hydroxide (Milk Of Magnesia 30 Ml Oral.Susp) 30 ml PO DAILY PRN PRN Reason: Constipation Metoprolol Tartrate (Metoprolol Tartrate 12.5 Mg Halftab) 12.5 mg PO BID [facility]; Protocol Last Admin: 07/31/23 08:59 Dose: 12.5 mg Ondansetron HCl (Ondansetron Hcl 4 Mg/2 Ml Vial) 4 mg IVPUSH Q8H PRN PRN Reason: Nausea and Vomiting Sodium Chloride (0.9 % Sodium Chloride Flush 3 Ml Syringe) 3 ml IVFLUSH QSHIFT [facility] Last Admin: 07/31/23 09:00 Dose: Not Given Vitamin D (Cholecalciferol (Vitamin D3) 25 Mcg Tablet) 50 mcg PO DAILY [facility] Last Admin: 07/31/23 08:59 Dose: 50 mcg Home Medications Medication Instructions Recorded Confirmed Last Taken Type ascorbate calcium (vitamin C) 500 500 mg PO DAILY 04/20/20 07/29/23 07/27/23 History mg tablet Exam Height,Weight and Vital Signs: Height 5 ft 1 in Weight 62.064 kg Last Vital Signs Temp 97.7 F 07/31/23 14:00 Pulse 98 07/31/23 14:00 Resp 16 07/31/23 14:00 BP 130/73 07/31/23 14:00 Pulse Ox 98 07/31/23 14:00 O2 Del Method Room Air 07/31/23 14:00 Pertinent Lab Results Pertinent Lab Results: Laboratory Tests 07/29/23 07/29/23 07/29/23 10:07 10:17 12:35 WBC 8.1 RBC 4.80 Hgb 15.1 Hct 43.5 MCV 90.6 MCH 31.5 MCHC 34.7 RDW 12.3 Plt Count 336 MPV 11.5 Immature Gran % (Auto) 0.2 Neut % (Auto) 69.3 Lymph % (Auto) 21.3 Weston % (Auto) 6.8 Eos % (Auto) 1.7 Baso % (Auto) 0.7 Lymph # (Auto) 1.7 Weston # (Auto) 0.6 Eos # (Auto) 0.1 Baso # (Auto) 0.1 Abs Immat Gran (auto) 0.02 Absolute Neuts (auto) 5.6 Absolute Nucleated RBC 0.000 Nucleated RBC % (auto) 0.0 D-Dimer High Sensitivty 225 Sodium 137 Potassium 3.7 Chloride 103 Carbon Dioxide 23 Anion Gap 15 BUN 11 Creatinine 0.84 Estim Creat Clear Calc 49.4 Estimated GFR > 60 Random Glucose 182 H Fasting Glucose Calcium 9.7 Magnesium 1.8 Total Bilirubin 0.3 Direct Bilirubin 0.1 AST 16 ALT 10 Alkaline Phosphatase 63 Troponin I High Sens 22.4 H D B-Natriuretic Peptide 251 H Total Protein 7.6 Albumin 4.2 Lipase 27 TSH 2.40 Urine Color Yellow Urine Appearance Clear Urine pH 7.0 Ur Specific Ollie 1.010 Urine Protein Negative Urine Glucose (UA) Negative Urine Ketones Negative Urine Blood Negative Urine Nitrite Negative Ur Leukocyte Esterase Small (1+) H Urine RBC 0-2 Urine WBC 0-5 Ur Squamous Epith Cells 0-2 Urine Bacteria None Seen Hyaline Casts 0-2 COVID-19 ([facility]) Negative COVID-19 Clin Com See Note 07/30/23 07/31/23 06:40 05:57 WBC 7.0 7.0 RBC 4.50 4.52 Hgb 14.1 14.0 Hct 40.2 40.3 MCV 89.3 89.2 MCH 31.3 31.0 MCHC 35.1 H 34.7 RDW 12.5 12.5 Plt Count 307 294 MPV 11.6 11.7 Immature Gran % (Auto) 0.1 0.3 Neut % (Auto) 52.8 52.0 Lymph % (Auto) 34.7 33.5 Weston % (Auto) 7.3 8.0 Eos % (Auto) 4.5 H 5.6 H Baso % (Auto) 0.6 0.6 Lymph # (Auto) 2.4 2.3 Weston # (Auto) 0.5 0.6 Eos # (Auto) 0.3 0.4 Baso # (Auto) 0.0 0.0 Abs Immat Gran (auto) 0.01 0.02 Absolute Neuts (auto) 3.7 3.6 Absolute Nucleated RBC 0.000 0.000 Nucleated RBC % (auto) 0.0 0.0 D-Dimer High Sensitivty Sodium 139 139 Potassium 4.1 3.9 Chloride 105 104 Carbon Dioxide 25 26 Anion Gap 13 13 BUN 10 15 Creatinine 0.70 0.69 Estim Creat Clear Calc 59.5 60.4 Estimated GFR > 60 > 60 Random Glucose 99 Fasting Glucose 89 Calcium 9.6 9.3 Magnesium Total Bilirubin 0.4 0.5 Direct Bilirubin AST 15 15 ALT 9 9 Alkaline Phosphatase 60 56 Troponin I High Sens B-Natriuretic Peptide Total Protein 6.9 6.8 Albumin 3.8 3.8 Lipase TSH Urine Color Urine Appearance Urine pH Ur Specific Ollie Urine Protein Urine Glucose (UA) Urine Ketones Urine Blood Urine Nitrite Ur Leukocyte Esterase Urine RBC Urine WBC Ur Squamous Epith Cells Urine Bacteria Hyaline Casts COVID-19 ([facility]) COVID-19 Clin Com Airway Mallampati Class: III TM Dist: >3cm Neck ROM: Full Denture: Upper and Lower Heart: irre Assessment and Plan Assessment Anesthesia Assessment: Anesthesia Plan Discussed Final Anesthetic Review History of Problems with Anesthesia: Yes ASA Class: III Final Preanesthetic Review: Meds/Allgs Chart Reviewed, Consent Obtained/Reviewed and Anes Risks/Benef Reviewed Patient Risk: Intermediate Procedure Risk: Low Anesthetic Plan Anesthetic Plan: MAC: Disposition: Standard PACU
--- NOTE | 2023-07-31 15:24 | P.PNCAR_ITS ---
Cardioversion Procedure Note Cardioversion Date of Procedure: Today Ordering Provider: Myself Performing Provider: Myself Indication for Procedure: Persistent new onset atrial fibrillation Pre-Op Diagnosis: Same Post-Op Diagnosis: Sinus rhythm Performed with Transesophageal Echo: Yes ELIGIO findings (if ELIGIO Performed): Full report dictated separately which may take some time due to technical iss ues. No intracardiac thrombi or masses found History: See my consult note Consent: Verbal and Written consent was obtained from the patient before starting and after confirming oral anticoagulation use. The patient was made aware of the risk of synchronized cardioversion including benefits and alternatives Procedure: After consent obtained, cardioversion pads were attached in anteroposterior configuration and the patient was sedated by the anesthesia team. Once adequate sedation achieved, patient was delivered 200 joules of biphasic synchronized energy in anteroposterior configuration Complications: None Impression: Successful conversion to sinus rhythm Recommendations: 112 lead EKG 2. Start flecainide 50 mg b.i.d. and Toprol-XL 25 mg daily and may discharge patient 3. Continue full oral anticoagulation 4. Will follow up in the office after Holter monitor
--- NOTE | 2023-07-31 15:29 | ECG_ITS ---
Test Reason : S/P CARDIOVERSION Blood Pressure : / mmHG Vent. Rate : 048 BPM Atrial Rate : 048 BPM P-R Int : 162 ms QRS Dur : 084 ms QT Int : 434 ms P-R-T Axes : 052 019 056 degrees QTc Int : 387 ms Sinus bradycardia Otherwise normal ECG When compared with ECG of 29-JUL-2023 14:49, Sinus rhythm has replaced Atrial fibrillation Vent. rate has decreased BY 47 BPM Right bundle branch block is no longer Present Referred By: Tomer Morales Electronically Signed By:TOMER MORALES MD
--- NOTE | 2023-08-01 13:17 | PM.DS ---
DS: Providers Provider Date of Service: 08/01/23 Date of admission: 07/29/23 14:31 Date of discharge: 07/31/23 Primary care physician: Bernabe Peterson MD Consults: 07/29/23 14:34 Consult to Cardiology Routine Consulting [place] [facility] [place] [facility] Reason for consultation: New onset AFib with RVR Has provider been notified: No DS: Diagnosis Discharge Diagnosis (1) Atrial fibrillation with rapid ventricular response: Status: Acute DS: Summary Hospital Course Hospital Course: 72-year-old female with history of palpitations presents with chest palpitations intermittently over the last 24 hours they did not resolve. She is been seen in the ER recently for complaints of same however when examined had been in sinus rhythm. She was scheduled for Holter monitor some time next week but developed these symptoms last night. She states when they did not resolve she sought care at the ER. She denies chest pain or shortness of breath with these symptoms; mild dizziness. Follows with Dr. Morales on an outpatient basis Hospital course Admitted to telemetry on [facility] where she failed to convert to sinus rhythm. She was seen in consultation by Dr. Morales and on 07/31/2023 underwent ELIGIO with subsequent cardioversion and return of normal sinus rhythm. She had no postprocedural issues and was cleared for discharge by Dr. Morales. She will follow-up with him in the office as scheduled Time Attestation Discharge coordination time: Greater than 30 minutes Quality: Safe Use of Opioids Does Pt have an Active Cancer Diagnosis on the Problem List?: No Quality: Stroke Does the patient have a stroke diagnosis?: No Physical Exam Vital Signs: Vital Signs: Last Vital Signs Temp 96.9 F 07/31/23 16:00 Pulse 53 07/31/23 16:00 Resp 17 07/31/23 16:00 BP 134/70 07/31/23 16:00 Pulse Ox 98 07/31/23 16:00 O2 Del Method Room Air 07/31/23 16:00 BMI result Body Mass Index 25.9 Const: Other: Awake alert oriented x3 Resp: Other: Clear to auscultation bilaterally no rales rhonchi or wheezes Cardio: Other: Irregular/irregular; no S4; positive S1-S2; no S3 murmurs rubs or gallops GI: Other: Soft nontender nondistended normoactive bowel sounds Neuro: Other: Cranial nerves 2-12 grossly intact as tested. Motor is 5/5 all extremities. Sensation is intact. Cognition appropriate. Gait stable Extrem: Other: No edema bilaterally Discharge Plan Discharge Anticipated Discharge Date/Time: 07/31/23 16:32 Patient Disposition: Home, Self-Care Discharge Diagnosis: afib with rvr Referrals: Bernabe Peterson MD [Primary Care Provider] - 1 Week Tomer Morales MD [Physician] - 1 Week Discharge Medications: New flecainide 50 mg tablet 50 mg PO Q12H Qty: 180 0RF metoprolol succinate 25 mg tablet extended release 24 hr 25 mg PO DAILY Qty: 90 0RF Eliquis 5 mg tablet 5 mg PO BID Qty: 180 0RF Continued fluticasone propionate 50 mcg/actuation spray,suspension 2 spray intranasal DAILY PRN (Reason: nasal congestion) 30 Days Qty: 16 12RF Rx Instructions: administer into each nostril cholecalciferol (vitamin D3) 50 mcg (2,000 unit) capsule 50 mcg PO DAILY 90 Days Qty: 90 3RF ascorbate calcium (vitamin C) 500 mg tablet 500 mg PO DAILY Discharge Orders: Discharge Order (Routine); Ordered 07/31/23 Ordered By: Tayler Dominguez Diet: Low salt diet Activity on Discharge: As tolerated Stand Alone Forms: Patient Portal Discharge page Care Plan Goals: Prevent afib with rapid ventricular rate Health Concerns: Atrial fibrillation with rapid ventribular rate Plan of Treatment: Atrial fibrillation with rapid ventricular rate -successfully cardioverted -start flecainide 50mg twice daily (start this evening, and continue every 12 hours)- this medication is for rhythm control -Start metoprolol 25mg extended release to help control heart rate and blood pressure -Continue eliquis 5mg twice daily. This is a blood thinner that will help prevent stroke due to atrial fibrillation. Monitor for any bleeding and contact cardiology should this occur -low sodium diet -Follow up with Dr. Morales in cardiology as scheduled Follow up with PCP. Assessment: See above. See discharge summary Patient Instructions: Seasoning Without Salt (DC), Low-Sodium Diet (DC) Discharge Date/Time: 07/31/23 17:32
== END 2023-07-31 17:32 | disposition home or self-care (01) | DRG 310 ==
LOC: HO.ED 12:25 → HO.EDOVER 14:37 → HO.IMC 16:08
PROVIDERS: Internal Medicine Cardiovascular Disease; Admitting Provider Hospitalist; Emergency Provider Emergency Medicine; PCP Internal Medicine; Visit Provider Hospitalist
PROC: 5A2204Z Restoration of Cardiac Rhythm, Single (ICD-10-PCS; CPT 93312; principal; 2023-07-31 14:30)
PROC: 5A2204Z Restoration of Cardiac Rhythm, Single (ICD-10-PCS; 2023-07-31 14:30)
DX: I48.19 Other persistent atrial fibrillation (principal); E78.5 Hyperlipidemia, unspecified; Z20.822 Contact with and (suspected) exposure to COVID-19; Z79.899 Other long term (current) drug therapy
CPT/HCPCS: 36415; 71045; 80048; 80053; 80076; 81001; 83690; 83735; 83880; 84443; 84484; 85025; 85379; 87086; 87635; 92960; 93005; 99285; J2704

== ENCOUNTER 2023-07-29 14:31 | Outpatient (BNV) | payer MEDICARE, SELFPAY | END 2023-07-31 15:29 | PROVIDERS: Admitting Provider Hospitalist; Emergency Provider Emergency Medicine; PCP Internal Medicine; Visit Provider Internal Medicine Cardiovascular Disease | DX: I48.91 Unspecified atrial fibrillation (principal); I36.1 Nonrheumatic tricuspid (valve) insufficiency | CPT/HCPCS: 93312; 93320; 93325 ==

== ENCOUNTER → 2023-07-29 14:31 | Outpatient (BNV) | payer MEDICARE, SELFPAY | PROVIDERS: Admitting Provider Hospitalist; Emergency Provider Emergency Medicine; PCP Internal Medicine; Visit Provider Internal Medicine Cardiovascular Disease | DX: I48.19 Other persistent atrial fibrillation (principal) | CPT/HCPCS: 92960; 93010; 99222; 99233 ==

== ENCOUNTER → 2023-07-29 14:31 | Outpatient (BNV) | payer MEDICARE, SELFPAY | PROVIDERS: Admitting Provider Hospitalist; Emergency Provider Emergency Medicine; PCP Internal Medicine; Visit Provider Hospitalist | DX: I48.91 Unspecified atrial fibrillation (principal) | CPT/HCPCS: 99223; 99233; 99239 ==

== ENCOUNTER → 2023-08-07 09:20 | Outpatient (REF) | payer MEDICARE, SELFPAY ==
--- NOTE | 2023-08-07 09:25 | HM_ITS ---
Conclusion: 1. Patient was monitored for total period of 3 days 2. Baseline was sinus bradycardia with average heart rate of 44 beats per minute with 93% of time heart rate below 60 beats per minute 3. No significant pauses noted but heart rate as low as 33 beats per minute 4. No sustained atrial fibrillation noted with rare PACs 5. Patient reported multiple events that all correlated with sinus bradycardia MTDD
== END ==
LOC: HO.CARD 09:20
PROVIDERS: PCP Internal Medicine; Visit Provider Internal Medicine Cardiovascular Disease
DX: I48.91 Unspecified atrial fibrillation (principal)
CPT/HCPCS: 93242

== ENCOUNTER → 2023-08-07 09:25 | Outpatient (BNV) | payer MEDICARE, SELFPAY | PROVIDERS: PCP Internal Medicine; Visit Provider Internal Medicine Cardiovascular Disease | DX: I48.91 Unspecified atrial fibrillation (principal) | CPT/HCPCS: 93244 ==

== ENCOUNTER 2023-08-08 11:41 | Outpatient (AMB) | payer MEDICARE, SELFPAY ==
--- NOTE | 2023-08-08 11:44 | A.OFFPC_ITS ---
Vital Signs 08/08/23 11:49 08/08/23 14:58 Height 5 ft 1 in Weight 61.008 kg BMI 25.4 BP 112/70 Blood Pressure Location Lt brachial Position Sitting Pulse 39 L 50 Pulse Source Pulse Oximeter Pulse Oximetry (%) 97 Oxygen Delivery Method Room Air Intake Visit Reasons: TCM [facility] Afib 07/29/23-07/31/23 Intake Note: Patient is here for hospital discharge follow up tcm. Patient was discharged from [facility] on 07/31/23. Porcelain Enameler Required: No Family Health Nurse Practitioner: Not Required per policy Accompanied by: Self / Same As Patient Allergies Sulfa (Sulfonamide Antibiotics) Allergy (Intermediate, Verified 08/08/23 11:48) Swollen red eyes cefuroxime Adverse Reaction (Intermediate, Uncoded 08/08/23 11:48) Stomach Upset Medication List - Last Reconciled 08/08/23 by LYNN Obrien apixaban (Eliquis) 5 mg PO BID ascorbate calcium (vitamin C) 500 mg PO DAILY cholecalciferol (vitamin D3) 50 mcg PO DAILY 90 days flecainide 50 mg PO Q12H fluticasone propionate 50 mcg/actuation 2 sprays intranasal DAILY PRN 30 days metoprolol tartrate 12.5 mg (1/2 x 25 mg) PO BID Tobacco use date assessed: 08/08/23 Fall risk assessment: No Falls in past year Last assessed Fall Risk: 08/08/23 Dental Screening Dental Screen Date: 08/08/23 Did you have a dental visit in the last 12 months?: No Did you have a dental problem in the last 6 months where you did not have access to dental care?: No Was dental information given to patient?: Patient has dentist HPI [facility] TCM Information Date of Discharge 07/31/23 Discharged From [facility] Interactive Contact Date (Reference documentation from this date) 08/01/23 HPI Comments History of Present Illness Details 72-year-old female without any significa nt past medical history presents to the office today for hospital discharge follow-up. All discharge medications reviewed and reconciled. She had presented to [facility] for evaluation of palpitations and was admitted from 07/29-07/31 due to new onset atrial fibrillation. She was admitted to telemetry on Cardizem drip and failed to convert to normal sinus rhythm. Had been started with Eliquis and underwent jareth/cardioversion on 07/31 with conversion to normal sinus rhythm. There are no postprocedural issues and she was discharged later that day on metoprolol 25 mg ER, flecainide 50 mg b.i.d., and Eliquis 5 mg b.i.d.. Denies any bleeding with eliquis. Today, she is reporting that she is feeling well overall. She occasionally experiences brief episodes of palpitations lasting no longer than several minutes and is currently wearing Holter monitor. Has been able to go for 30 minute walks without stopping for rest. Denies any shortness of breath, extended round palpitations, lightheadedness, syncope, or chest pains. She has follow-up with Cardiology on 08/28. [facility] Medical History Atrial fibrillation History of transesophageal echocardiography (JARETH) Left atrial dilatation Orthostatic lightheadedness Pain and swelling of left lower leg Exertional dyspnea Swelling of joint of left hand Pain in joint of left hand Overweight (BMI 25.0-29.9) Allergic rhinitis Pure hypercholesterolemia Osteoarthritis Dyslipidemia Vitamin D deficiency Age related osteoporosis Surgical History Status post cardiac catheterization History of cardiac cath Hx of cataract removal with insertion of prosthetic lens (~12/2014) Hx of section Family History Mother Prediabetes Hyperlipidemia Hypertension Father No problems noted. Social History Household Members: Spouse Housing: House Do you presently have visiting nurse or other home services: No Alcohol intake: current Alcohol intake frequency: does not drink Patient Tobacco Use Status: Never used Tobacco e-Cigarette/Vaping Use: Never Used Second Hand Smoke Exposure: Yes service: No Current occupational status: retired Cognitive needs: No Hearing needs: Yes Vision needs: No Questionnaire PHQ-9 Over the last 2 weeks, how often have you been bothered by any of the following problems? 1. Little interest or pleasure in doing things: not at all 2. Feeling down, depressed, or hopeless: not at all 3. Trouble falling or staying asleep, or sleeping too much: not at all 4. Feeling tired or having little energy: not at all 5. Poor appetite or overeating: not at all 6. Feeling bad about yourself - or that you are a failure or have let yourself or your family down: not at all 7. Trouble concentrating on things, such as reading the newspaper or watching television: not at all 8. Moving or speaking so slowly that other people could have noticed. Or the opposite - being so fidgety or restless that you have been moving around a lot more than usual: not at all 9. Thoughts that you would be better off or of hurting yourself in some way: not at all Total score: 0 Depression Screening Interpretation: Negative Depression Screening Done: Yes Source: Developed by Drs. Al Amato, Yvan Lovett and colleagues, with an educational mindy from [email or web address]. Thrive Questionnaire Date Thrive assessed: 07/30/23 AUDIT C Alcohol Use Questionnaire (AUDIT-C) 1. How often do you have a drink containing alcohol?: Monthly or less 2. How many drinks containing alcohol do you have on a typical day when you are drinking?: 1 or 2 Total Score: 1 KEYON-7 AMB Questionnaire KEYON-7 Date KEYON - 7 assessed: 08/08/23 Feeling nervous, anxious, or on edge: 0 = Not at all Not being able to stop or control worryin = Not at all Worrying too much about different things: 0 = Not at all Trouble relaxin = Not at all Being so restless that it is hard to sit still: 0 = Not at all Becoming easily annoyed or irritable: 0 = Not at all Feeling afraid as if something awful might happen: 0 = Not at all Total KEYON-7 score (0-4 normal; 5-9 mild; 10-14 moderate; 15-21 severe): 0 Source: Developed by Drs. Al Amato, Yvan Lovett and colleagues, with an educational mindy from [email or web address]. Physical exam (Primary Care) Vital Signs: Last Vital Signs Pulse 39 L 08/08/23 11:49 BP 112/70 08/08/23 11:49 Pulse Ox 97 08/08/23 11:49 Oxygen Delivery Method Room Air 08/08/23 11:49 BMI result Body Mass Index 25.4 Tobacco/Smoking Status: Tobacco use Status Tobacco use date assessed 08/08/23 08/08/23 11:53 Patient Tobacco Use Status Never used Tobacco 08/08/23 11:51 e-Cigarette/Vaping Use Never Used 08/08/23 11:51 PHQ-9: PHQ-9 Score PHQ-9: Total score 0 08/08/23 12:29 Depression Screening Interpretation: Negative Thrive Assessment: Date of Thrive Assessment Date Thrive assessed 07/30/23 08/08/23 11:44 Const Other: Constitutional - Awake and Alert, No apparent distress Eyes - PERRLA, EOMI Cardiovascular - S1S2, RRR, No edema Respiratory - Normal lung expansion, Normal respiratory effort, No respiratory distress, CTA bilaterally Extremities - no calf tenderness bilaterally, no swelling Skin - Warm/Dry Neurological - Alert & oriented x3 Psychological - Appropriate affect Assessment and Plan Assessment & Plan (1) Atrial fibrillation with rapid ventricular response: Code(s): I48.91 - Unspecified atrial fibrillation Plan: New onset s/p cardioversion with conversion to NSR. Initally bradycardic at 37 per MA, rechecked at 50. She is asymptomatic. HR's in 50s while admitted. Will lower metorpolol to 12.5mg BID and notified Dr. Morales of change as requested by patient. Continue eliquis 5mg BID for anticoagulation (CHADS2 Vasc score 2) and flecainide 50 mg b.i.d.. Continue with holter monitor as ordered by cardiology and follow up with cardiology in office 08/28 as scheduled. Medications: New metoprolol tartrate 12.5 mg (1/2 x 25 mg) PO BID 90 tabs 0RF Discontinued metoprolol succinate ER Discontinued Reason: Doctor's Order 25 mg PO DAILY 90 tabs 0RF Coding Level of Care Code Est Pt Level 4 (16002) Diagnoses Atrial fibrillation with rapid ventricular response I48.91
[2023-08-08 11:49] VITALS: BP 112/70; PULSE 39; O2SAT 97; BMI 25.4
[2023-08-08 14:58] VITALS: PULSE 50
== END 2023-08-08 12:47 | disposition home or self-care (01) ==
PROVIDERS: PCP Internal Medicine; Visit Provider Physician Assistant
DX: I48.91 Unspecified atrial fibrillation (principal)
CPT/HCPCS: 99495

== ENCOUNTER 2023-08-28 10:24 | Outpatient (AMB) | payer MEDICARE, SELFPAY ==
[2023-08-28 10:51] VITALS: BP 110/66; PULSE 39; BMI 24.5
--- NOTE | 2023-08-28 10:51 | MHC.OFFVIS ---
Intake Vital Signs 08/28/23 10:51 Height 5 ft 1 in Weight 129 lb 13.636 oz BMI 24.5 BP 110/66 Blood Pressure Location Lt brachial Position Sitting Pulse 39 L Intake Visit Reasons: 4 wk f/up holter Intake Note: 4 week follow up with EKG. MD low 39 Supply Chain Associate Required: No Accompanied by: Spouse Allergies Sulfa (Sulfonamide Antibiotics) Allergy (Intermediate, Verified 08/08/23 11:48) Swollen red eyes cefuroxime Adverse Reaction (Intermediate, Uncoded 08/08/23 11:48) Stomach Upset Medication List - Last Reconciled 08/28/23 by Tomer Morales MD apixaban (Eliquis) 5 mg PO BID ascorbate calcium (vitamin C) 500 mg PO DAILY cholecalciferol (vitamin D3) 50 mcg PO DAILY 90 days flecainide 50 mg PO Q12H fluticasone propionate 50 mcg/actuation 2 sprays intranasal DAILY PRN 30 days metoprolol tartrate 12.5 mg (1/2 x 25 mg) PO BID HPI HPI Comments History of Present Illness Details Yaritza comes for follow-up after recent hospitalization with rapid atrial fibrillation with symptoms. She then underwent synchronized cardioversion by ELIGIO guidance. She converted to sinus rhythm and started on flecainide given her left atrial enlargement to maintain rhythm. Also at the same time started on metoprolol therapy to be concomitant therapy with flecainide therapy. She tolerated that well. She is on oral anticoagulation therapy with Eliquis. Subsequent Holter monitor shows frequent and significant sinus bradycardia. Her metoprolol was then reduced on follow-up by the primary care team. She now presents for follow-up and heart rate noted to be at 39 beats per minute with right bundle-branch block. notices that the heart rate is often below 40 and with exercise she complains of fatigue and tiredness and muscle aches. She has not had any syncopal episodes. Denies any heart failure symptoms. No bleeding issues or neurologic events [facility] Medical History (Updated 08/28/23 @ 12:16 by Tomer Morales MD) Sick sinus syndrome Atrial fibrillation with rapid ventricular response Atrial fibrillation History of transesophageal echocardiography (ELIGIO) Left atrial dilatation Orthostatic lightheadedness Pain and swelling of left lower leg Exertional dyspnea Swelling of joint of left hand Pain in joint of left hand Overweight (BMI 25.0-29.9) Allergic rhinitis Pure hypercholesterolemia Osteoarthritis Dyslipidemia Vitamin D deficiency Age related osteoporosis Surgical History Status post cardiac catheterization History of cardiac cath Hx of cataract removal with insertion of prosthetic lens (~12/2014) Hx of section Family History Mother Prediabetes Hyperlipidemia Hypertension Father No problems noted. Social History Household Members: Spouse Housing: House Do you presently have visiting nurse or other home services: No Alcohol intake: current Alcohol intake frequency: does not drink Patient Tobacco Use Status: Never used Tobacco e-Cigarette/Vaping Use: Never Used Second Hand Smoke Exposure: Yes service: No Current occupational status: retired Cognitive needs: No Hearing needs: Yes Vision needs: No Review of Systems Const Denies chills, Denies fatigue, Denies fever(s), Denies frequent falls, Denies weakness, Denies weight gain and Denies weight loss ENT Denies dizziness Card Denies chest pain, Denies leg edema, Denies lightheadedness, Denies palpitations, Denies dyspnea, Denies dyspnea on exertion, Denies orthopnea and Denies other (loss of consciousness) Resp Denies cough, Denies dyspnea and Denies dyspnea on exertion GI Denies hematochezia and Denies change in stool character Musc Denies abnormal gait, Denies muscle weakness, Denies numbness, Denies radiating pain into limb and Denies tingling Neuro Denies abnormal gait, Denies dizziness, Denies frequent falls, Denies numbness, Denies tingling and Denies weakness Endo Denies fatigue and Denies palpitations Physical Exam Vital Signs: Last Vital Signs Pulse 39 L 08/28/23 10:51 BP 110/66 08/28/23 10:51 BMI result Body Mass Index 24.5 Const General: cooperative, healthy appearing, comfortable, no acute distress and anxious Nutritional Appearance: average body habitus Orientation/consciousness: patient oriented x3 Neck Neck: Yes normal visual inspection Resp Effort & Inspection: normal respiratory effort Auscultation: no crackles, no rales, no rhonchi and no wheezes Cardio Jugular venous distension: no JVD Rate: bradycardic Rhythm: regular rhythm Heart sounds: S1 normal heart sound present, S2 normal heart sound present, no murmurs and no rubs GI Inspection: Yes normal to inspection Neuro General: patient oriented x3 Extrem General: Yes normal to inspection Psych Appearance: grossly normal Mental Status: mental status grossly normal Speech and movement: Normal speech and movement present Office Procedures EKG Details: EKG shows marked sinus bradycardia with right bundle-branch block [id number], Complete Assessment & Plan Assessment & Plan (1) Sick sinus syndrome: Code(s): I49.5 - Sick sinus syndrome Plan: Patient presents with symptomatic significant sinus bradycardia on low-dose metoprolol therapy with required flecainide therapy 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 This was discussed with her. I think best approach would be to do a dual-chamber pacemaker to support her slow heart rate so that we can manage her atrial fibrillation with rapid ventricular response, symptomatic and avoid hospitalization. This was discussed with her. Other options potentially discontinue medications and if she has recurrent atrial fibrillation pursue pacemaker placement. This was discussed with her in details. A given that she has significant left atrial enlargement and frequent PACs likelihood of recurrent atrial fibrillation is high. Discussed the need for pacemaker and the procedure and potential complications including at the time of surgery and long-term complication with indwelling pacemaker. She understands and agrees. Will schedule after discussing with surgery. (2) Paroxysmal atrial fibrillation: Code(s): I48.0 - Paroxysmal atrial fibrillation Plan: Paroxysmal atrial fibrillation with recent hospitalization due to symptomatic atrial fibrillation, new onset undergoing ELIGIO guided cardioversion. Has done well with no complications. Currently maintained on flecainide as well as metoprolol therapy leading to sinoatrial kelly dysfunction. Discussed with her about management. She is done well with rhythm control approach but has symptoms of chronotropic incompetence at this point time. Discussed about pacemaker placement. In the long run given her left atrial enlargement structural changes likelihood of requirement for antiarrhythmic drug is high and all of the antiarrhythmic drug likely to cause sinoatrial kelly dysfunction. Continue full oral anticoagulation, currently on Eliquis. Will follow up in the clinic after pacemaker placement. Thank you for allowing me to partake in her care Coding Level of Care Code Est Pt Level 4 (70343) Diagnoses Sick sinus syndrome I49.5 Paroxysmal atrial fibrillation I48.0 CPT Codes EKG - CPT: 24909-[id number], Complete ([id number])
== END 2023-08-28 12:50 | disposition home or self-care (01) ==
PROVIDERS: PCP Internal Medicine; Visit Provider Internal Medicine Cardiovascular Disease
DX: I49.5 Sick sinus syndrome (principal); I48.0 Paroxysmal atrial fibrillation
CPT/HCPCS: 93010; 99214

== ENCOUNTER → 2023-08-28 10:24 | Outpatient (BNVA) | payer MEDICARE, SELFPAY | PROVIDERS: PCP Internal Medicine; Visit Provider Internal Medicine Cardiovascular Disease | DX: I49.5 Sick sinus syndrome (principal); I48.0 Paroxysmal atrial fibrillation | CPT/HCPCS: 93005; 99212 ==

== ENCOUNTER 2023-08-30 23:43 | Inpatient (IN) | payer MEDICARE, SELFPAY ==
--- NOTE | 2023-08-30 | ECG_ITS ---
Test Reason : cp Blood Pressure : / mmHG Vent. Rate : 053 BPM Atrial Rate : 053 BPM P-R Int : 188 ms QRS Dur : 150 ms QT Int : 464 ms P-R-T Axes : 070 043 039 degrees QTc Int : 435 ms Sinus bradycardia Right bundle branch block Abnormal ECG When compared with ECG of 31-JUL-2023 15:35, Right bundle branch block is now Present Referred By: Generic ED Physician Electronically Signed By:NELSON CHARLES
--- NOTE | ~2023-08-30 | FL_ITS ---
EXAMINATION: XR FLUOROSCOPY WITH IMAGES CLINICAL INFORMATION: Pacer insertion. COMPARISON: Chest radiograph 07/21/2023 TECHNIQUE: Fluoroscopy Time: 8 minutes 12 seconds. Cumulative Dose: 36.8 mGy. DAP: 13.639 Gycm2. Images: 2. FINDINGS: Sequential images demonstrate a left pectoral dual-lead pacer without evidence of gross lead ectopia or discontinuity. The visualized lungs demonstrate no gross pleural effusions or definitive pneumothoraces. The heart size is grossly normal. FL/FL guidance in OR IMPRESSION: Intraprocedural visualization as detailed above.
--- NOTE | ~2023-08-30 | XR_ITS ---
EXAMINATION: XR CHEST CLINICAL INFORMATION: Pacemaker. COMPARISON: Chest radiograph 07/29/2023. TECHNIQUE: Frontal view of the chest was obtained. FINDINGS: Left-sided pacer with leads projecting over the right atrium and right ventricle. Stable prominence of the cardiomediastinal silhouette. Redemonstration of moderate hiatal hernia. Unchanged mild diffuse interstitial prominence. No new focal airspace densities. No pleural effusion or pneumothorax. No acute osseous findings. Visualized upper abdomen is within normal limits. XR/XR chest 1V IMPRESSION: Left-sided pacer with leads projecting over the expected location of the right atrium and right ventricle. No pneumothorax. Stable mild diffuse interstitial prominence. Moderate hiatal hernia.
[2023-08-31] VITALS (8 sets, daily range): BP systolic 127–178; BP diastolic 48–80; PULSE 44–56; RESP 12–20; TEMP 36–37.1; O2SAT 94–99; BMI 24.4; BMI 24.8
[2023-08-31] LABS: MANUAL DIFF FLAG NO
[2023-08-31 00:04] LABS: Basophils Absolute Auto 0.1 X10*3/uL (0.0-0.2); Basophils Percent Auto 0.7 % (0-2); Eosinophils Absolute Auto 0.3 X10*3/uL (0.0-0.4); Hematocrit 36.1 % (37.0-47.0); Imm Gran Abs Auto 0.01 X10*3/uL (0.00-0.03); Imm Gran Pct Auto 0.1 % (0.0-0.4); Lymphocytes Absolute Auto 2.6 X10*3/uL (1.2-4.9); Lymphocytes Percent Auto 34.9 % (20-40); Mean Corpuscular Hemoglobin 31.3 pg (27.0-33.0); Mean Corpuscular Volume 86.8 fL (80.0-98.0); Mean Platelet Volume 11.2 fL (9.4-12.3); Monocytes Absolute Auto 0.7 X10*3/uL (0.1-1.2); Monocytes Percent Auto 9.1 % (2-11); Neutrophils Absolute Auto 3.8 x10*3/uL (2.0-8.3); Neutrophils Percent Auto 51.2 % (45-73); Platelet Count 265 X10*3/uL (160-400); Red Blood Count 4.16 X10*6/uL (4.20-5.50); Red Cell Distribution Width 11.9 % (11.0-16.0); White Blood Count 7.5 X10*3/uL (4.8-10.8)
[2023-08-31 00:11] LABS: INTERNATIONAL NORM RATIO 1.2 (0.9-1.1); Prothrombin Time 14.3 SEC (11.1-13.3)
[2023-08-31 00:14] LABS: Partial Thromboplastin Time 36.6 SEC (26.0-36.8)
[2023-08-31 00:17] LABS: Alanine Aminotransferase 8 U/L (0-31); Albumin Level 4.1 g/dL (3.5-5.0); Alkaline Phosphatase 61 U/L (39-117); Anion Gap 14 (12-20); Aspartate Amino Transferase 16 U/L (5-31); Bilirubin Total 0.4 mg/dL (0.0-1.0); Blood Urea Nitrogen 15 mg/dL (9-16); Calcium 9.5 mg/dL (8.4-10.2); Carbon Dioxide 24 mmol/L (22-29); Chloride 97 mmol/L (96-108); Estimated Glomerular Filt Rate > 60; Glucose Random 98 mg/dL (60-115); Potassium 4.7 mmol/L (3.3-5.1); Sodium 130 mmol/L (135-145)
[2023-08-31 00:22] LABS: Troponin-I High Sensitivity 6.9 ng/L (<3.5-17.0)
--- NOTE | 2023-08-31 04:11 | ED.ARRPALP ---
HPI - Arrhythmia/Palpitations General Chief Complaint: Arrhythmia/Palpitations Stated Complaint: Tachy Time Seen by Provider: 08/31/23 04:00 Source: patient Mode of arrival: ambulatory History of Present Illness HPI narrative: This is a 72-year-old female with presentation for having had 2 episodes of feeling nauseous with sweating and lightheadedness this evening. Patient has been identified as having sick sinus syndrome, she is currently on blood thinners and has known paroxysmal atrial fibrillation. Related Data Home Medications Medication Instructions Recorded Confirmed ascorbate calcium (vitamin C) 500 500 mg PO DAILY 04/20/20 08/28/23 mg tablet Previous Rx's Medication Instructions Recorded cholecalciferol (vitamin D3) 50 50 mcg PO DAILY 90 days #90 caps 12/04/22 mcg (2,000 unit) capsule fluticasone propionate 50 2 spray intranasal DAILY PRN nasal 06/21/23 mcg/actuation nasal congestion 30 days #16 grams spray,suspension apixaban 5 mg tablet (Eliquis) 5 mg PO BID #180 tabs 07/31/23 flecainide 50 mg tablet 50 mg PO Q12H #180 tabs 07/31/23 metoprolol tartrate 25 mg tablet 12.5 mg (1/2 x 25 mg) PO BID #90 08/08/23 tabs Allergies Allergy/AdvReac Type Severity Reaction Status Date / Time Sulfa (Sulfonamide Allergy Intermediate Swollen Verified 08/08/23 11:48 Antibiotics) red eyes cefuroxime AdvReac Intermediate Stomach Uncoded 08/08/23 11:48 Upset Review of Systems Review of Systems: Pertinent positives and negatives as stated in HPI PMFSH Past Medical History Source: nursing notes reviewed Medical History Sick sinus syndrome Atrial fibrillation with rapid ventricular response Atrial fibrillation History of transesophageal echocardiography (ELIGIO) Left atrial dilatation Orthostatic lightheadedness Pain and swelling of left lower leg Exertional dyspnea Swelling of joint of left hand Pain in joint of left hand Overweight (BMI 25.0-29.9) Allergic rhinitis Pure hypercholesterolemia Osteoarthritis Dyslipidemia Vitamin D deficiency Age related osteoporosis Surgical History Status post cardiac catheterization History of cardiac cath Hx of cataract removal with insertion of prosthetic lens (~12/2014) Hx of section Family History Family History Mother Prediabetes Hyperlipidemia Hypertension Father No problems noted. Social History Social History Household Members: Spouse Housing: House Do you presently have visiting nurse or other home services: No Alcohol intake: current Alcohol intake frequency: does not drink Patient Tobacco Use Status: Never used Tobacco Smoked in Last 30 Days: No e-Cigarette/Vaping Use: Never Used Second Hand Smoke Exposure: Yes Use of substances other than those prescribed or required for medical reasons: No Advance Directives: No Advance Directives Information Provided: No service: No Current occupational status: retired Cognitive needs: No Hearing needs: Yes Vision needs: No Physical Exam Vital Signs: Vital Signs: Last Vital Signs Temp 98.3 F 08/31/23 02:19 Pulse 53 08/31/23 02:19 Resp 12 08/31/23 02:19 BP 178/80 H 08/31/23 02:19 Pulse Ox 98 08/31/23 02:19 O2 Del Method Room Air 08/31/23 02:19 BMI result Body Mass Index 24.4 VITAL SIGNS: Reviewed. GENERAL: Well developed, well nourished, in no acute distress. HEAD: Normocephalic/atraumatic EYES: PERRLA, EOMI EARS: Ext canals without abnormality NOSE: Nares patent bilateral OROPHARYNX: no oral lesions noted, posterior pharynx clear NECK: Supple, no adenopathy LUNGS: Normal breath sounds. No adventitious sounds or accessory muscle use. SpO2<98> CARDIOVASCULAR: Regular rate and rhythm without noted murmurs ABDOMEN: Soft, non-tender, non-distended with bowel sounds. MUSCULOSKELETAL: No tenderness, deformities, or effusions noted on gross inspection. EXTREMITIES: No cyanosis, clubbing or edema. SKIN: Inspection of the skin reveals no rashes NEUROLOGIC: Alert and oriented x 4. Strength and sensation to light touch were grossly intact x 4. Medical Decision Making Medical Decision Making MDM Narrative: 72-year-old female with history and clinical presentation that is most suggestive of symptomatic sick sinus syndrome, on review of EKG here in the emergency room there are no noted ST elevations, patient is noted be in sinus bradycardia with a right bundle branch block and is currently asymptomatic. I reviewed all investigations and hematologic indices are negative for leukocytosis/left shift/anemia/thrombocytopenia. Coagulation studies are mildly elevated consistent with patient's chronic anticoagulation. Chemistry indices do not demonstrate an BREANA and there is no significant electrolyte or liver enzyme derangement, initial high sensitivity troponin is 6.9 and will repeat a 2nd. I have discussed all results and findings with the patient to include the admission and she is agreeable. 0428: I discussed case with inpatient hospitalist who accepts admission. Differential Diagnosis Differential Diagnoses: The differential diagnosis associated with the presentation includes Please see the discussion above Admission/Observation Consideration of admission/observation: Escalation of care including admission/observation considered Please see the discussion above Consult Healthcare Provider Management of the patient was discussed with: Hospitalist Please see the discussion above Lab Data MDM Lab Attestation statement: I reviewed the patient's lab results. Please see the discussion above 08/30/23 23:55 08/30/23 23:55 Labs: Lab Results 08/30/23 Range/Units 23:55 WBC 7.5 (4.8-10.8) X10*3/uL RBC 4.16 L (4.20-5.50) X10*6/uL Hgb 13.0 (12.0-16.0) g/dl Hct 36.1 L (37.0-47.0) % MCV 86.8 (80.0-98.0) fL MCH 31.3 (27.0-33.0) pg MCHC 36.0 H (31.0-35.0) g/dl RDW 11.9 (11.0-16.0) % Plt Count 265 (160-400) X10*3/uL MPV 11.2 (9.4-12.3) fL Immature Gran % (Auto) 0.1 (0.0-0.4) % Neut % (Auto) 51.2 (45-73) % Lymph % (Auto) 34.9 (20-40) % Childress % (Auto) 9.1 (2-11) % Eos % (Auto) 4.0 (0-4) % Baso % (Auto) 0.7 (0-2) % Lymph # (Auto) 2.6 (1.2-4.9) X10*3/uL Childress # (Auto) 0.7 (0.1-1.2) X10*3/uL Eos # (Auto) 0.3 (0.0-0.4) X10*3/uL Baso # (Auto) 0.1 (0.0-0.2) X10*3/uL Abs Immat Gran (auto) 0.01 (0.00-0.03) X10*3/uL Absolute Neuts (auto) 3.8 (2.0-8.3) x10*3/uL Absolute Nucleated RBC 0.000 (0.0-0.012) X10*3/uL Nucleated RBC % (auto) 0.0 (0.0-0.2) /100WBC PT 14.3 H (11.1-13.3) SEC INR 1.2 H (0.9-1.1) APTT 36.6 (26.0-36.8) SEC Sodium 130 L (135-145) mmol/L Potassium 4.7 D (3.3-5.1) mmol/L Chloride 97 (96-108) mmol/L Carbon Dioxide 24 (22-29) mmol/L Anion Gap 14 (12-20) BUN 15 (9-16) mg/dL Creatinine 0.83 (0.5-1.4) mg/dL Estim Creat Clear Calc 49.0 Estimated GFR > 60 Random Glucose 98 (60-115) mg/dL Calcium 9.5 (8.4-10.2) mg/dL Magnesium 2.0 (1.6-2.6) mg/dL Total Bilirubin 0.4 (0.0-1.0) mg/dL AST 16 (5-31) U/L ALT 8 (0-31) U/L Alkaline Phosphatase 61 (39-117) U/L Troponin I High Sens 6.9 D (<3.5-17.0) ng/L Total Protein 7.0 (6.5-8.0) g/dL Albumin 4.1 (3.5-5.0) g/dL Independent Interpretation I performed an independent interpretation of an: EKG Interpretation: Sinus bradycardia, HR-53, no STEMI, RBBB is intermittently present and is present now but was not on 07/31/2023, AL/QTC are within normal limits. External Record Review External record reviewed: Office record, Outpatient record, Prior outpatient labs and Prior outpatient radiology Chronic Conditions Paroxysmal atrial fibrillation, SSS Critical Care Time Critical Care Time Critical Care Time: Yes Total Critical Care Time: 45 Attestation: I personally attest to this time spent taking care of the patient. Discharge Plan Discharge Clinical Impression: Sick sinus syndrome Patient Disposition: Admitted As Inpatient Prescriptions: No Action fluticasone propionate 50 mcg/actuation spray,suspension 2 spray intranasal DAILY PRN (Reason: nasal congestion) 30 Days Qty: 16 12RF Rx Instructions: administer into each nostril flecainide 50 mg tablet 50 mg PO Q12H Qty: 180 0RF Eliquis 5 mg tablet 5 mg PO BID Qty: 180 0RF cholecalciferol (vitamin D3) 50 mcg (2,000 unit) capsule 50 mcg PO DAILY 90 Days Qty: 90 3RF metoprolol tartrate 25 mg tablet 12.5 mg PO BID Qty: 90 0RF ascorbate calcium (vitamin C) 500 mg tablet 500 mg PO DAILY
--- NOTE | 2023-08-31 04:48 | PC.NURSE ---
Med rec completed at this time. Pt comes in after two episodes of sudden onset diaphoresis and dizziness. Pt is scheduled for a pacemaker next Sunday but has been feeling her heart rcing. Pt is bradycardic in ED. A&Ox4, GCS 15, warm dry skin.
[2023-08-31 05:03] LABS: Troponin-I High Sensitivity 5.4 ng/L (<3.5-17.0)
--- NOTE | 2023-08-31 05:45 | P.HPHOSP_ITS ---
History of Present Illness Date of Service: 08/31/23 Chief Complaint: Chest pressure This is a 72-year-old female with pertinent history of sick sinus syndrome, paroxysmal atrial fibrillation on Eliquis who presents to the emergency department for evaluation of chest pressure, nausea and lightheadedness. Patient states she had sudden onset of symptoms around 19:30. Patient had sudden onset of chest pressure with associated nausea, sweating and lightheadedness. She checked her pulse and it was racing as per the patient. This lasted for about 5 minutes and patient went to sleep. She states that she woke up at around 23:00 to go to the bathroom and had a 2nd episode which was similar to the earlier one. Patient is scheduled for a pacemaker next week by Dr. Morales. No fever, chills, shortness of breath, abdominal pain, changes in urinary or bowel habits. Review of Systems 2 Constitutional: Constitutional: Reports no additional constitutional complaints and Reports excessive sweating Cardiovascular: Cardiovascular: Reports chest pain, Reports rapid heart rate and Reports lightheadedness Respiratory: Respiratory: Reports no additional respiratory complaints Gastrointestinal: Gastrointestinal: Reports nausea Genitourinary: Genitourinary: Reports no additional female genitourinary complaints Neurologic: Reports system reviewed and no additional complaints, except as documented Endocrine: Endocrine: Reports excessive sweating [facility] Medical History Sick sinus syndrome Atrial fibrillation with rapid ventricular response Atrial fibrillation History of transesophageal echocardiography (ELIGIO) Left atrial dilatation Orthostatic lightheadedness Pain and swelling of left lower leg Exertional dyspnea Swelling of joint of left hand Pain in joint of left hand Overweight (BMI 25.0-29.9) Allergic rhinitis Pure hypercholesterolemia Osteoarthritis Dyslipidemia Vitamin D deficiency Age related osteoporosis Family History Mother Prediabetes Hyperlipidemia Hypertension Father No problems noted. Surgical History Status post cardiac catheterization History of cardiac cath Hx of cataract removal with insertion of prosthetic lens (~12/2014) Hx of section Social History Household Members: Spouse Housing: House Do you presently have visiting nurse or other home services: No Alcohol intake: current Alcohol intake frequency: does not drink Patient Tobacco Use Status: Never used Tobacco Smoked in Last 30 Days: No e-Cigarette/Vaping Use: Never Used Second Hand Smoke Exposure: Yes Use of substances other than those prescribed or required for medical reasons: No Advance Directives: No Advance Directives Information Provided: No service: No Current occupational status: retired Cognitive needs: No Hearing needs: Yes Vision needs: No Meds Allergies Allergy/AdvReac Type Severity Reaction Status Date / Time Sulfa (Sulfonamide Allergy Intermediate Swollen Verified 08/08/23 11:48 Antibiotics) red eyes cefuroxime AdvReac Intermediate Stomach Uncoded 08/08/23 11:48 Upset Home Medications Medication Instructions Recorded Confirmed Last Taken Type ascorbate calcium (vitamin C) 500 500 mg PO DAILY 04/20/20 08/31/23 08/30/23 History mg tablet Physical Exam 2 Vital Signs and Narrative: Vital Signs: Last Vital Signs Temp 98.3 F 08/31/23 02:19 Pulse 53 08/31/23 02:19 Resp 12 08/31/23 02:19 BP 178/80 H 08/31/23 02:19 Pulse Ox 98 08/31/23 02:19 O2 Del Method Room Air 08/31/23 02:19 BMI result Body Mass Index 24.4 Elderly female lying in bed in no distress Neck supple, no JVD Regular rate and rhythm, S1-S2 heard Regular breath sounds bilaterally, no wheezing or crackles appreciated Abdomen soft nontender, no guarding, no rigidity Patient is awake, alert and oriented to self, place, time and person ; no focal motor deficit Psych: Normal mood No pedal edema Results Labs 08/30/23 23:55 08/30/23 23:55 Labs: Laboratory Results - last 24 hr 08/30/23 08/31/23 23:55 04:40 MCV 86.8 MCH 31.3 MCHC 36.0 H RDW 11.9 Plt Count 265 MPV 11.2 Immature Gran % (Auto) 0.1 Neut % (Auto) 51.2 Lymph % (Auto) 34.9 Mcculloch % (Auto) 9.1 Eos % (Auto) 4.0 Baso % (Auto) 0.7 Lymph # (Auto) 2.6 [place]ulloch # (Auto) 0.7 Eos # (Auto) 0.3 Baso # (Auto) 0.1 Abs Immat Gran (auto) 0.01 Absolute Neuts (auto) 3.8 Absolute Nucleated RBC 0.000 Nucleated RBC % (auto) 0.0 PT 14.3 H INR 1.2 H APTT 36.6 Anion Gap 14 Estim Creat Clear Calc 49.0 Estimated GFR > 60 Random Glucose 98 Calcium 9.5 Magnesium 2.0 Total Bilirubin 0.4 AST 16 ALT 8 Alkaline Phosphatase 61 Troponin I High Sens 6.9 D 5.4 Total Protein 7.0 Albumin 4.1 Assessment and Plan (1) Sick sinus syndrome: Status: Acute (2) Paroxysmal atrial fibrillation: Status: Acute Plan This is a 72-year-old female with pertinent history of sick sinus syndrome, paroxysmal atrial fibrillation on Eliquis who presents to the emergency department for evaluation of chest pressure, nausea and lightheadedness. #. Chest pressure, nausea, lightheadedness, tachycardia in a patient with sick sinus syndrome and paroxysmal atrial fibrillation: Will admit patient with cardiac monitoring. Consulted Cardiology, appreciate assistance. Patient is on Eliquis, flecainide and metoprolol Med rec pending DVT prophylaxis: Eliquis Full code Quality Stroke Does the patient have a stroke diagnosis?: No VTE Prior VTE?: No VTE Risk Level:: Medical - moderate - high VTE Device Contraindication: Treatment Not Indicated VTE Drug Contraindication: N/A - Med Ordered
--- NOTE | 2023-08-31 07:45 | PHA.MEDREC ---
Pharmacy Consult ? Medication Reconciliation Pharmacy has completed the medication reconciliation.med rec completed by nursing. Compared with pharmacy claim history and it matches.
--- NOTE | 2023-08-31 08:39 | PC.NURSE ---
Assumed care of this pt at 0700. Pt a+o, she denies pain. Pt was seen by Dr. Baker this morning, hold Eliquis, Flecanide, Metoprolol. Cardiology consult pending. Pt aware of plan of care, pt's is at her bedside.
[2023-08-31] MEDS: Cholecalciferol (Vitamin D3) 25 MCG TABLET 50 MCG PO (09:25)
[2023-08-31] MEDS: Ascorbic Acid 500 MG TABLET PO (09:25)
--- NOTE | 2023-08-31 09:33 | PC.NURSE ---
PO meds given as ordered and documented, Eliquis not given per Dr. Baker.
--- NOTE | 2023-08-31 09:41 | MHC.CM.PN ---
Addendum entered by Shahida Lui 08/31/23 09:44: Obs form was given, not IMM. Original Note: IMM 08/31/23, Pt lives with her , he is HCP, form is on file, and this was confirmed. Pt is independent, has no home health services or med equipment. PCP confirmed: [facility], to transport home upon DC.
--- NOTE | 2023-08-31 09:53 | PM.CNCAR ---
History of Present Illness History of Present Illness Date of Service: 08/31/23 Chief complaint: Palpitations Narrative: This is a cardiology consultation regarding paroxysmal atrial fibrillation/bradycardia. Patient generally sees Dr. Morales and was actually just seen this week. She has a history of paroxysmal atrial fibrillation and has undergone recent ELIGIO/cardioversion. She remains on flecainide as well as metoprolol. However, she also has significant bradycardia and hence there is a plan for permanent pacemaker implantation and that has been scheduled for next week. In the interim, patient is now the ER for complaints of feeling dizzy, nauseous apparently she also had palpitations that time. Asked for few minutes and it happened 2nd time as well and that led to the ER visit. She has been in sinus bradycardia since arrival. Otherwise, she is feeling okay now. Review of Systems Review of Systems: Yes all other systems are reviewed and are negative Constitutional: Constitutional: Reports as per HPI and Reports no additional constitutional complaints Eyes: Eyes: Reports as per HPI and Denies no additional eye complaints ENT: Denies system reviewed and no additional complaints, except as documented and Reports as per HPI Cardiovascular: Cardiovascular: Reports as per HPI, Reports no additional cardiovascular complaints, Denies acrocyanosis, Denies cool extremities, Denies chest pain, Reports diaphoresis, Denies leg edema, Reports lightheadedness, Reports palpitations and Denies dyspnea Respiratory: Respiratory: Reports as per HPI, Denies no additional respiratory complaints and Denies dyspnea Gastrointestinal: Gastrointestinal: Reports as per HPI and Denies no additional gastrointestinal complaints Genitourinary: Genitourinary: Reports as per HPI Musculoskeletal: Musculoskeletal: Reports no additional musculoskeletal complaints and Reports as per HPI Integumentary/Breasts: Skin/Breast: Reports system reviewed and no additional complaints, except as docu Neurologic: Reports system reviewed and no additional complaints, except as documented and Reports as per HPI Psychiatric: Psychiatric: Reports no additional psychiatric complaints and Reports as per HPI Endocrine: Endocrine: Reports no additional endocrine complaints, Reports as per HPI and Reports palpitations Hematologic/Lymphatic: Hematologic/Lymphatic: Reports no additional hematologic/lymphatic complaints and Reports as per HPI Allergic/Immunologic: Allergic/Immunologic: Reports no additional allergic/immunologic complaints and Reports as per HPI [facility] Past Medical History Medical History Sick sinus syndrome Atrial fibrillation with rapid ventricular response Atrial fibrillation History of transesophageal echocardiography (ELIGIO) Left atrial dilatation Orthostatic lightheadedness Pain and swelling of left lower leg Exertional dyspnea Swelling of joint of left hand Pain in joint of left hand Overweight (BMI 25.0-29.9) Allergic rhinitis Pure hypercholesterolemia Osteoarthritis Dyslipidemia Vitamin D deficiency Age related osteoporosis Family History Family History Mother Prediabetes Hyperlipidemia Hypertension Father No problems noted. Surgical History Surgical History Status post cardiac catheterization History of cardiac cath Hx of cataract removal with insertion of prosthetic lens (~12/2014) Hx of section Social History Social History Household Members: Spouse Housing: House Do you presently have visiting nurse or other home services: No Alcohol intake: current Alcohol intake frequency: does not drink Patient Tobacco Use Status: Never used Tobacco Smoked in Last 30 Days: No e-Cigarette/Vaping Use: Never Used Second Hand Smoke Exposure: Yes Use of substances other than those prescribed or required for medical reasons: No Advance Directives: No Advance Directives Information Provided: No service: No Current occupational status: retired Cognitive needs: No Hearing needs: Yes Vision needs: No Meds Allergies Allergy/AdvReac Type Severity Reaction Status Date / Time Sulfa (Sulfonamide Allergy Intermediate Swollen Verified 08/08/23 11:48 Antibiotics) red eyes cefuroxime AdvReac Intermediate Stomach Uncoded 08/08/23 11:48 Upset Active Medications: Current Medications Acetaminophen (Acetaminophen 325 Mg Tablet) 650 mg PO Q6H PRN PRN Reason: Pain, Mild (Pain Scale 1-3) Apixaban (Apixaban 5 Mg Tablet) 5 mg PO BID [facility] Last Admin: 08/31/23 09:25 Dose: Not Given Ascorbic Acid (Ascorbic Acid 500 Mg Tablet) 500 mg PO DAILY [facility] Last Admin: 08/31/23 09:25 Dose: 500 mg Flecainide Acetate (Flecainide Acetate 50 Mg Tablet) 50 mg PO Q12H [facility] Melatonin (Melatonin 3 Mg Tablet) 6 mg PO BEDTIME PRN PRN Reason: Insomnia Metoprolol Tartrate (Metoprolol Tartrate 12.5 Mg Halftab) 12.5 mg PO BID [facility]; Protocol Ondansetron HCl (Ondansetron Hcl 4 Mg/2 Ml Vial) 4 mg IVPUSH Q8H PRN PRN Reason: Nausea and Vomiting Sodium Chloride (0.9 % Sodium Chloride Flush 3 Ml Syringe) 3 ml IVFLUSH QSHIFT [facility] Last Admin: 08/31/23 09:34 Dose: Not Given Vitamin D (Cholecalciferol (Vitamin D3) 25 Mcg Tablet) 50 mcg PO DAILY [facility] Last Admin: 08/31/23 09:25 Dose: 50 mcg Home Medications Medication Instructions Recorded Confirmed Last Taken Type ascorbate calcium (vitamin C) 500 500 mg PO DAILY 04/20/20 08/31/23 08/30/23 History mg tablet Physical Exam Vital Signs: Vital Signs: Last Vital Signs Temp 98.8 F 08/31/23 09:28 Pulse 56 08/31/23 09:28 Resp 17 08/31/23 09:28 BP 127/55 L 08/31/23 09:28 Pulse Ox 96 08/31/23 09:28 O2 Del Method Room Air 08/31/23 09:28 BMI result Body Mass Index 24.4 Const: General: comfortable and no acute distress Orientation/consciousness: patient oriented x3 HEENT: Other: Unremarkable Head: Yes normal to inspection Neck: Neck: Yes normal visual inspection Chest: Chest palpation & inspection: normal inspection of the chest Resp: Auscultation: clear to auscultation bilaterally Cardio: Palpation: normal PMI Heart sounds: S1 normal heart sound present, S2 normal heart sound present, no gallops, no murmurs and no rubs GI: Palpation (GI): Soft to palpation Back/Spine/Pelvis: Other: unremarkable Skin: General skin exam: no rashes or lesions noted Neuro: General: patient oriented x3 Extrem: General: Yes normal to inspection Psych: Mental Status: mental status grossly normal Objective Labs and Meds 08/30/23 23:55 08/30/23 23:55 Lab results: Laboratory Results - last 24 hr 08/30/23 08/31/23 23:55 04:40 WBC 7.5 RBC 4.16 L Hgb 13.0 Hct 36.1 L MCV 86.8 MCH 31.3 MCHC 36.0 H RDW 11.9 Plt Count 265 MPV 11.2 Immature Gran % (Auto) 0.1 Neut % (Auto) 51.2 Lymph % (Auto) 34.9 Coleman % (Auto) 9.1 Eos % (Auto) 4.0 Baso % (Auto) 0.7 Lymph # (Auto) 2.6 Coleman # (Auto) 0.7 Eos # (Auto) 0.3 Baso # (Auto) 0.1 Abs Immat Gran (auto) 0.01 Absolute Neuts (auto) 3.8 Absolute Nucleated RBC 0.000 Nucleated RBC % (auto) 0.0 PT 14.3 H INR 1.2 H APTT 36.6 Sodium 130 L Potassium 4.7 D Chloride 97 Carbon Dioxide 24 Anion Gap 14 BUN 15 Creatinine 0.83 Estim Creat Clear Calc 49.0 Estimated GFR > 60 Random Glucose 98 Calcium 9.5 Magnesium 2.0 Total Bilirubin 0.4 AST 16 ALT 8 Alkaline Phosphatase 61 Troponin I High Sens 6.9 D 5.4 Total Protein 7.0 Albumin 4.1 ECG Interpretation: EKG with sinus bradycardia at 53/Min; right bundle-branch block pattern. Assessment and Plan (1) Sick sinus syndrome: Status: Acute (2) Paroxysmal atrial fibrillation: Status: Acute Plan High sensitivity troponin within normal limits. Overall, paroxysmal atrial fibrillation episodes, recent cardioversion, sinus bradycardia which is limiting appropriate med titration. Etiology for the episodes at home is not clear. She actually states she felt her heart racing and hence not clear if she had atrial fibrillation as opposed to long pauses or heart blocks. We can monitor on telemetry for another 24 hours or so. Continue home medications as otherwise she will go back into atrial fibrillation. Will check with EP regarding timing of pacemaker. Discussed with significant other at bedside. Discussed with Dr. Baker. Procedures Date of Service Date of Service: 08/31/23
[2023-08-31] MEDS: Metoprolol Tartrate 12.5 MG HALFTAB PO (11:18)
[2023-08-31] MEDS: Flecainide Acetate 50 MG TABLET PO ×2 (11:18→21:01)
--- NOTE | 2023-08-31 11:47 | PC.NURSE ---
Metoprolol and Flecainide given and Eliquis held per Dr. Nolan. Pt scheduled to have pacemaker procedure done tomorrow. PT TO BE NPO AFTER MIDNIGHT. Both pt and her is aware of the plan.
--- NOTE | 2023-08-31 14:00 | PM.EVENT ---
Event Note Date of Service: 08/31/23 Event Note: Pt seen and examined, meds, lab vital reviewed. She has SSS and there has been plan to have pace maker on outpatient basis now that she's admitted for PAF that has failed cardioversion, she will have pace maker tomorrow. Hold eliquis today. restart metoprolol and Flecainide and monitor on tele. O/w A/P per H and P from today Time Spent With Patient Time: Total time managing care of this patient today ____ minutes.
[2023-08-31] MEDS: 0.9 % Sodium Chloride Flush 3 ML SYRINGE IVFLUSH (21:03)
[2023-09-01] VITALS (11 sets, daily range): BP systolic 118–165; BP diastolic 56–74; PULSE 52–65; RESP 14–20; TEMP 36.2–36.8; O2SAT 93–99
[2023-09-01 06:51] LABS: Hematocrit 36.8 % (37.0-47.0); Hemoglobin 13.1 g/dl (12.0-16.0); Mean Corpuscular HGB Conc 35.6 g/dl (31.0-35.0); Mean Corpuscular Hemoglobin 31.1 pg (27.0-33.0); Mean Corpuscular Volume 87.4 fL (80.0-98.0); Mean Platelet Volume 11.3 fL (9.4-12.3); Platelet Count 248 X10*3/uL (160-400); Red Blood Count 4.21 X10*6/uL (4.20-5.50); White Blood Count 5.9 X10*3/uL (4.8-10.8)
[2023-09-01 07:04] LABS: Anion Gap 12 (12-20); Blood Urea Nitrogen 9 mg/dL (9-16); Calcium 9.2 mg/dL (8.4-10.2); Carbon Dioxide 25 mmol/L (22-29); Chloride 101 mmol/L (96-108); Creatinine Clr Calc Pharmacy 63.9; Estimated Glomerular Filt Rate > 60; Glucose Random 93 mg/dL (60-115); Potassium 4.1 mmol/L (3.3-5.1); Sodium 134 mmol/L (135-145)
--- NOTE | 2023-09-01 08:53 | P.OP_ITS ---
Operative Note Operative Note Date of Service: 09/01/23 Narrative: NAME OF PROCEDURE: ? 1.???Dual chamber pacemaker INDICATION FOR PROCEDURE:??Tachybrady syndrome Description of Procedure:?Patient was identified brought to the electro physiology laboratory in a postabsorptive state.??The left pectoral region was prepped and draped in usual sterile fashion. Incision was made over the left pectoral region and pectoral subcutaneous pocket was made. ?Afterwards?left?axillary venous access was obtained using micropuncture needle and fluoroscopic guidance, a 7-Slovenian sheath was placed.??Right ventricular pacing lead was advanced and placed septum with good sensing and pacing thresholds.??The sheath was split and the lead was then anchored to the pectoral fascia with Ethibond suture.?? Afterwards?left?axillary venous access was obtained using micropuncture needle and fluoroscopic guidance, a 6-Slovenian sheath was placed.??Right atrial pacing lead was advanced and placed in the base of the right atrial appendage with good sensing and pacing thresholds.??The sheath was split and the lead was then anchored to the pectoral fascia with Ethibond suture.?? ? The subcutaneous pocket was made and the wound was irrigated with antibiotic solution.??The??leads were then connected to a?pacemaker?generator and placed in the pocket.??The wound was closed with 3 layers of absorbable sutures.? Patient tolerated procedure well.??There were no complications. ? IMPRESSION:?? Successful implantation of Dual chamber?pacemaker? ? PLAN: ? 1.?Routine postprocedure monitoring. 2.?CXR today? 3.?Post operative Abx? 4. ???EKG today? 5. ???Interrogation of device
--- NOTE | 2023-09-01 11:24 | PC.NURSE ---
dr lopez at bedside speaking to patient concerning pacemaker education and discharge instruction when she goed home patient verbalized understanding confirmed telepack transmitting prior to transporting patient to room pt denies pain vss nad dressing remains the same and assessments
[2023-09-01] MEDS: Metoprolol Tartrate 12.5 MG HALFTAB PO (11:59)
[2023-09-01] MEDS: Flecainide Acetate 50 MG TABLET PO ×2 (12:00→20:12)
[2023-09-01] MEDS: Ascorbic Acid 500 MG TABLET PO (12:00)
[2023-09-01] MEDS: Cholecalciferol (Vitamin D3) 25 MCG TABLET 50 MCG PO (12:00)
--- NOTE | 2023-09-01 12:08 | P.PNIM_ITS ---
Subjective Subjective Date of Service: 09/01/23 Interval History: f/u on afib with rvr, sss had a pace maker inserted this morning without complications seen post op Physical Exam 2 Vital Signs: Vital Signs: Last Vital Signs Temp 97.2 F 09/01/23 11:15 Pulse 60 09/01/23 11:15 Resp 14 09/01/23 11:15 BP 159/66 H 09/01/23 11:15 Pulse Ox 98 09/01/23 11:15 O2 Del Method Nasal Cannula 09/01/23 11:15 O2 Flow Rate 2 09/01/23 11:15 BMI result Body Mass Index 24.8 Const: Other: General: AO X 3, no acute distress Resp: CTA bilateral CVS: S1,S2,RRR GI: +BS, NT, no distention Skin: No rash, pacer site d/c/i Neuro: motor grossly intact Psych: appropriate affect Objective Data Active Medications Acetaminophen (Acetaminophen 325 Mg Tablet) 650 mg PO Q6H PRN PRN Reason: Pain, Mild (Pain Scale 1-3) Ascorbic Acid (Ascorbic Acid 500 Mg Tablet) 500 mg PO DAILY [facility] Last Admin: 09/01/23 12:00 Dose: 500 mg Documented By: KEISHA Flecainide Acetate (Flecainide Acetate 50 Mg Tablet) 50 mg PO Q12H [facility] Last Admin: 09/01/23 12:00 Dose: 50 mg Documented By: KEISHA Cefazolin Sodium/Dextrose (Ancef) 2 gm in 50 mls @ 100 mls/hr IV Q8H [facility] Stop: 09/02/23 01:00 Melatonin (Melatonin 3 Mg Tablet) 6 mg PO BEDTIME PRN PRN Reason: Insomnia Metoprolol Tartrate (Metoprolol Tartrate 12.5 Mg Halftab) 12.5 mg PO BID [facility]; Protocol Last Admin: 09/01/23 11:59 Dose: 12.5 mg Documented By: KEISHA Ondansetron HCl (Ondansetron Hcl 4 Mg/2 Ml Vial) 4 mg IVPUSH Q8H PRN PRN Reason: Nausea and Vomiting Sodium Chloride (0.9 % Sodium Chloride Flush 3 Ml Syringe) 3 ml IVFLUSH QSHIFT [facility] Last Admin: 09/01/23 11:29 Dose: Not Given Documented By: KEISHA Non-Admin Reason: Off Unit: Surgery Vitamin D (Cholecalciferol (Vitamin D3) 25 Mcg Tablet) 50 mcg PO DAILY [facility] Last Admin: 09/01/23 12:00 Dose: 50 mcg Documented By: KEISHA Labs 09/01/23 06:29 09/01/23 05:38 Labs: Laboratory Results - last 24 hr 09/01/23 09/01/23 05:38 06:29 MCV 87.4 MCH 31.1 MCHC 35.6 H RDW 12.0 Plt Count 248 MPV 11.3 Absolute Nucleated RBC 0.000 Nucleated RBC % (auto) 0.0 Anion Gap 12 Estim Creat Clear Calc 63.9 Estimated GFR > 60 Random Glucose 93 Calcium 9.2 Assessment and Plan (1) Atrial fibrillation with rapid ventricular response: Status: Inactive Plan 72-year-old female with essentially no past medical history presents with palpitations that began 24 hours prior to her presentation to the ER. She states she is gotten these intermittently in the past and was seen in the ER however examined and normal sinus rhythm. Scheduled for outpatient Holter monitoring however developed this episode. She was seen in the emergency room and placed on a Cardizem drip. Atrial fibrillation with rapid ventricular response SSS -Had pace maker inserted this morning without complications -continue metoprolol and Flecainide -Eliquis when Ok with cardiology post surgery Full code Eliquis need for inpt: SSS s/p pacemaker, post op care and likely home tomorrow Discussed with patient and Quality Stroke Does the patient have a stroke diagnosis?: No VTE Prior VTE?: No VTE Risk Level:: Medical - moderate - high VTE Device Contraindication: Treatment Not Indicated VTE Drug Contraindication: N/A - Med Ordered
[2023-09-01] MEDS: 0.9 % Sodium Chloride Flush 3 ML SYRINGE IVFLUSH ×2 (17:03→20:13)
[2023-09-01] MEDS: ceFAZolin Sodium/Dextrose,Iso 2 GM/50 ML PIGGYBACK IV ×2 (17:04→23:20)
--- NOTE | 2023-09-01 17:26 | PC.NURSE ---
Pt off unit in am for pacemaker placement returns to unit early afternoon vital signs stable. Pt denies pain to site at left chest dressing CDI. Ice packs utilized for comfort, sling in place to left arm. Neurologically intact. KLETSEL DEHE WINTUN without hearing aids. Patient and spouse updated at bedside by Dr Baker. Will continue to monitor and report changes
[2023-09-01] MEDS: Metoprolol Tartrate 50 MG TABLET PO (20:13)
[2023-09-01] MEDS: Apixaban 5 MG TABLET PO (20:13)
[2023-09-01] MEDS: Acetaminophen 325 MG TABLET 650 MG PO (23:20)
[2023-09-02 03:20] VITALS: BP 137/70; PULSE 66; RESP 16; TEMP 36.3; O2SAT 97
[2023-09-02 08:00] VITALS: BP 155/72; PULSE 61; RESP 16; TEMP 36.1; O2SAT 96
[2023-09-02] MEDS: Flecainide Acetate 50 MG TABLET PO (08:58)
[2023-09-02] MEDS: Metoprolol Tartrate 50 MG TABLET PO (08:58)
[2023-09-02] MEDS: Ascorbic Acid 500 MG TABLET PO (08:58)
[2023-09-02] MEDS: Cholecalciferol (Vitamin D3) 25 MCG TABLET 50 MCG PO (08:58)
[2023-09-02] MEDS: Apixaban 5 MG TABLET PO (08:58)
[2023-09-02] MEDS: 0.9 % Sodium Chloride Flush 3 ML SYRINGE IVFLUSH (09:00)
--- NOTE | 2023-09-02 09:34 | PM.PNCARD ---
Subjective Subjective Date of Service: 09/02/23 Interval history: Underwent pacemaker implantation yesterday. She states she feels fine. Review of Systems Review of Systems Yes all other systems are reviewed and are negative Constitutional: Reports as per HPI and Reports no additional constitutional complaints Eyes: Reports as per HPI and Denies no additional eye complaints Denies system reviewed and no additional complaints, except as documented and Reports as per HPI Cardiovascular: Reports as per HPI, Reports no additional cardiovascular complaints, Denies acrocyanosis, Denies cool extremities, Denies chest pain, Denies leg edema, Denies lightheadedness, Denies palpitations and Denies dyspnea Respiratory: Reports as per HPI, Denies no additional respiratory complaints and Denies dyspnea Gastrointestinal: Reports as per HPI and Denies no additional gastrointestinal complaints Genitourinary: Reports as per HPI Musculoskeletal: Reports no additional musculoskeletal complaints and Reports as per HPI Skin/Breast: Reports system reviewed and no additional complaints, except as docu Reports system reviewed and no additional complaints, except as documented and Reports as per HPI Psychiatric: Reports no additional psychiatric complaints and Reports as per HPI Endocrine: Reports no additional endocrine complaints, Reports as per HPI and Denies palpitations Hematologic/Lymphatic: Reports no additional hematologic/lymphatic complaints and Reports as per HPI Allergic/Immunologic: Reports no additional allergic/immunologic complaints and Reports as per HPI Physical Exam Vital Signs: Last Vital Signs Temp 97.0 F 09/02/23 08:00 Pulse 61 09/02/23 08:00 Resp 16 09/02/23 08:00 BP 155/72 H 09/02/23 08:00 Pulse Ox 96 09/02/23 08:00 O2 Del Method Room Air 09/02/23 08:00 O2 Flow Rate 2 09/01/23 11:15 BMI result Body Mass Index 24.8 Const General: comfortable and no acute distress Orientation/consciousness: patient oriented x3 HEENT Other: Unremarkable Head: Yes normal to inspection Neck Neck: Yes normal visual inspection Chest Chest palpation & inspection: normal inspection of the chest Resp Auscultation: clear to auscultation bilaterally Cardio Palpation: normal PMI Heart sounds: S1 normal heart sound present, S2 normal heart sound present, no gallops, no murmurs and no rubs GI Palpation (GI): Soft to palpation Back/Spine/Pelvis Other: unremarkable Skin General skin exam: no rashes or lesions noted Neuro General: patient oriented x3 Extrem General: Yes normal to inspection Psych Mental Status: mental status grossly normal Objective Labs and Meds 09/01/23 06:29 09/01/23 05:38 Imaging Radiologist's impression: Impressions Guidance Fluoroscopy 09/01/23 10:40 IMPRESSION: Intraprocedural visualization as detailed above. Chest X-Ray 09/01/23 11:18 IMPRESSION: Left-sided pacer with leads projecting over the expected location of the right atrium and right ventricle. No pneumothorax. Stable mild diffuse interstitial prominence. Moderate hiatal hernia. Progress Note: A&P Assessment and plan (1) Sick sinus syndrome: Status: Acute (2) Paroxysmal atrial fibrillation: Status: Acute Plan She was bradycardic upon arrival but no evidence of high-grade AV blocks. After discussion with EP, underwent permanent pacemaker implantation yesterday. Uneventful. Device check is within normal limits. Chest x-ray is also within normal limits. We can keep her metoprolol at a higher dose at 50 mg b.i.d. to prevent any recurrent atrial fibrillation episodes. Continue flecainide. Continue anticoagulation. We will arrange remote monitoring of pacemaker and also arrange a wound check appointment. Discussed with significant other the bedside. Discussed with Dr. Baker. Discharge planning. Time Spent With Patient Time: Total time managing care of this patient today 40 minutes. This includes time spent in review of chart, laboratory data, imaging studies, review of telemetry, counseling patient, family, discussion with hospitalist, RN, documentation, coordination of care. Progress Note: Quality Stroke Does the patient have a stroke diagnosis?: No Procedures Date of Service Date of Service: 09/02/23
--- NOTE | 2023-09-02 09:39 | P.DS_ITS ---
DS: Providers Provider Date of Service: 09/02/23 Date of admission: 08/31/23 13:41 Primary care physician: Bernabe Peterson MD Consults: 08/31/23 05:41 Consult to Cardiology Routine Consulting Provider: [facility] Reason for consultation: chest pressure, nausea, tachycardia in a pt with sick sinus syndrome Has provider been notified: Yes DS: Diagnosis Discharge Diagnosis (1) Atrial fibrillation with rapid ventricular response: Status: Inactive DS: Summary Hospital Course Hospital Course: admission hpi Chief Complaint: Chest pressure This is a 72-year-old female with pertinent history of sick sinus syndrome, paroxysmal atrial fibrillation on Eliquis who presents to the emergency department for evaluation of chest pressure, nausea and lightheadedness. Patient states she had sudden onset of symptoms around 19:30. Patient had sudden onset of chest pressure with associated nausea, sweating and lightheadedness. She checked her pulse and it was racing as per the patient. This lasted for about 5 minutes and patient went to sleep. She states that she woke up at around 23:00 to go to the bathroom and had a 2nd episode which was similar to the earlier one. Patient is scheduled for a pacemaker next week by Dr. Morales. No fever, chills, shortness of breath, abdominal pain, changes in urinary or bowel habits. Hospital course: The patient was admitted with chest pain attributed to AFIB with sick sinus syndrome, for which she was supposed to have a pacemaker soon. An arrangement was made for a pacemaker the following day without complications, and an uneventful pacemaker interrogation was conducted the next day. Cardiology has been following her and advised increasing metoprolol to 50 mg twice daily from 12.5 mg twice daily and to continue Flecainide and Eliquis. She is to follow up on an outpatient basis. Time Attestation Discharge coordination time: Greater than 30 minutes Quality: Safe Use of Opioids Does Pt have an Active Cancer Diagnosis on the Problem List?: No Quality: Stroke Does the patient have a stroke diagnosis?: No Physical Exam Vital Signs: Vital Signs: Last Vital Signs Temp 97.0 F 09/02/23 08:00 Pulse 61 09/02/23 08:00 Resp 16 09/02/23 08:00 BP 155/72 H 09/02/23 08:00 Pulse Ox 96 09/02/23 08:00 O2 Del Method Room Air 09/02/23 08:00 O2 Flow Rate 2 09/01/23 11:15 BMI result Body Mass Index 24.8 Const: Other: General: AO X 3, no acute distress Resp: CTA bilateral CVS: S1,S2,RRR GI: +BS, NT, no distention Skin: No rash, pace maker site clean and no hematoma Neuro: motor grossly intact Psych: appropriate affect DS: Data Data Completed and Pending Completed studies during hospitalization [Text1]: Procedures [facility]ari of Cardiac Rhythm, Single (07/29/23) Ultrasonography of Heart with Aorta, Transesophageal (07/29/23) Discharge Plan Discharge Anticipated Discharge Date/Time: 09/02/23 09:36 Patient Disposition: Home, Self-Care Discharge Diagnosis: Sick sinus syndrome, PAF Referrals: Bernabe Peterson MD [Primary Care Provider] - 1 Week Discharge Medications: New metoprolol tartrate 50 mg Tablet 50 mg PO BID Qty: 180 0RF Protocol: Hold for SBP/HR < HOLD for SBP < : 90 HOLD for HR < : 60 Continued flecainide 50 mg tablet 50 mg PO Q12H Qty: 180 0RF Eliquis 5 mg tablet 5 mg PO BID Qty: 180 0RF cholecalciferol (vitamin D3) 50 mcg (2,000 unit) capsule 50 mcg PO DAILY 90 Days Qty: 90 3RF ascorbate calcium (vitamin C) 500 mg tablet 500 mg PO DAILY Discontinued metoprolol tartrate 25 mg tablet 12.5 mg PO BID Qty: 90 0RF Diet: Advance to usual diet Activity on Discharge: As tolerated Stand Alone Forms: Patient Portal Discharge page Care Plan Goals: recovery from pace maker and control of heart rate Health Concerns: sick sinus syndrome and atrial fibriliaton Plan of Treatment: metoprolol dose has been increased to 50 mg twice daily, continue all other medication Assessment: See above
--- NOTE | 2023-09-02 11:30 | MHC.CM.PN ---
PT WILL DC HOME TODAY VIA PRIVATE TRANSPORT NO SERVICES ORDERED
== END 2023-09-02 12:15 | disposition home or self-care (01) | DRG 244 ==
LOC: HO.ED 08-31 04:35 → HO.EDOVER 08-31 05:48 → HO.IMC 08-31 17:25
PROVIDERS: Internal Medicine Cardiovascular Disease; Admitting Provider Student in an Organized Health Care Education/Training Program; Emergency Provider Student in an Organized Health Care Education/Training Program; PCP Internal Medicine; Visit Provider Internal Medicine
PROC: 0JH606Z Insertion of Pacemaker, Dual Chamber into Chest Subcutaneous Tissue and Fascia, Open Approach (ICD-10-PCS; principal; 2023-09-01 08:00)
DX: I49.5 Sick sinus syndrome (principal); I48.0 Paroxysmal atrial fibrillation; Z79.01 Long term (current) use of anticoagulants; Z79.899 Other long term (current) drug therapy
CPT/HCPCS: 36415; 71045; 80048; 80053; 83735; 84484; 85025; 85027; 85610; 85730; 93005; 99285; A4364; C1769; C1785; C1892; C1898; J0690; J1100; J2405; J2704; J3010; J3370; Q9965

== ENCOUNTER → 2023-08-30 23:47 | Outpatient (BNV) | payer MEDICARE, SELFPAY | PROVIDERS: Admitting Provider Student in an Organized Health Care Education/Training Program; Emergency Provider Student in an Organized Health Care Education/Training Program; PCP Internal Medicine; Visit Provider Internal Medicine | DX: R07.9 Chest pain, unspecified (principal); R00.1 Bradycardia, unspecified | CPT/HCPCS: 93010 ==

== ENCOUNTER → 2023-08-31 05:41 | Outpatient (BNV) | payer MEDICARE, SELFPAY | PROVIDERS: Admitting Provider Student in an Organized Health Care Education/Training Program; Emergency Provider Student in an Organized Health Care Education/Training Program; PCP Internal Medicine; Visit Provider Student in an Organized Health Care Education/Training Program | DX: I48.91 Unspecified atrial fibrillation (principal) | CPT/HCPCS: 99222; 99232; 99238; 99499 ==

== ENCOUNTER → 2023-08-31 05:41 | Outpatient (BNV) | payer MEDICARE, SELFPAY | PROVIDERS: Admitting Provider Student in an Organized Health Care Education/Training Program; Emergency Provider Student in an Organized Health Care Education/Training Program; PCP Internal Medicine; Visit Provider Internal Medicine | DX: I49.5 Sick sinus syndrome (principal); I48.0 Paroxysmal atrial fibrillation | CPT/HCPCS: 99222; 99233 ==

== ENCOUNTER 2023-09-05 10:17 | Outpatient (AMB) | payer MEDICARE, SELFPAY ==
--- NOTE | 2023-09-05 10:23 | A.OFFPC_ITS ---
Vital Signs 09/05/23 10:27 Height 5 ft 1 in Weight 130 lb BMI 24.6 BP 118/80 Blood Pressure Location Lt brachial Position Sitting Pulse 60 Pulse Source Pulse Oximeter Pulse Oximetry (%) 97 Oxygen Delivery Method Room Air Intake Visit Reasons: [facility] pacemaker 08/30/23 - 09/30/23 Anesthesiology Tech Required: No Accompanied by: Self / Same As Patient Allergies Sulfa (Sulfonamide Antibiotics) Allergy (Intermediate, Verified 09/09/23 23:43) Swollen red eyes cefuroxime Adverse Reaction (Intermediate, Uncoded 09/09/23 23:43) Stomach Upset Medication List - Last Reconciled 09/09/23 by Bernabe Peterson MD apixaban (Eliquis) 5 mg PO BID ascorbate calcium (vitamin C) 500 mg PO DAILY cholecalciferol (vitamin D3) 50 mcg PO DAILY 90 days flecainide 50 mg PO Q12H metoprolol tartrate 50 mg See Protocol PO BID Tobacco use date assessed: 09/05/23 Fall risk assessment: No Falls in past year Last assessed Fall Risk: 09/05/23 Dental Screening Dental Screen Date: 09/05/23 Did you have a dental visit in the last 12 months?: No Did you have a dental problem in the last 6 months where you did not have access to dental care?: No Was dental information given to patient?: No HPI [facility] pacemaker 08/30/23 - 09/30/23 HPI Details Patient comes in today for her F follow up visit She was admitted to [facility] from 08/31/23 to 09/02/23, after initially presenting to the ER last week following 2 separate episodes of chest pressure, with nausea and diaphoresis Recalls that her 1st episode lasted for about 5 minutes and the second one woke her up from her sleep a couple of hours later She was originally scheduled for outpatient pacemaker insertion with cardiology at [facility] later this week Cardiac work ups done at the ER came out negative Cardiology was then consulted and she was recommended admission She also ended up getting a dual chamber pacemaker insertion ahead of time on 09/01/2023 States that she currently feels okay She denies any headaches or dizziness Denies any chest pains, no SOB and denies any palpitations since her pacemaker insertion a few days ago No nausea/vomiting, no abdominal pain No change in bowel habits noted TCM TCM Information Date of Discharge 09/02/23 Discharged From [facility] Interactive Contact Date (Reference documentation from this date) 09/05/23 [facility] Medical History Sick sinus syndrome Atrial fibrillation with rapid ventricular response Atrial fibrillation History of transesophageal echocardiography (ELIGIO) Left atrial dilatation Orthostatic lightheadedness Pain and swelling of left lower leg Exertional dyspnea Swelling of joint of left hand Pain in joint of left hand Overweight (BMI 25.0-29.9) Allergic rhinitis Pure hypercholesterolemia Osteoarthritis Dyslipidemia Vitamin D deficiency Age related osteoporosis Surgical History (Updated 09/10/23 @ 00:32 by Bernabe Peterson MD) History of permanent cardiac pacemaker placement (~09/01/23) Status post cardiac catheterization History of cardiac cath Hx of cataract removal with insertion of prosthetic lens (~12/2014) Hx of section Family History Mother Prediabetes Hyperlipidemia Hypertension Father No problems noted. Social History Household Members: Spouse Housing: House Do you presently have visiting nurse or other home services: No Alcohol intake: current Alcohol intake frequency: does not drink Patient Tobacco Use Status: Never used Tobacco e-Cigarette/Vaping Use: Never Used Second Hand Smoke Exposure: Yes service: No Current occupational status: retired Cognitive needs: No Hearing needs: Yes Vision needs: No Questionnaire PHQ-9 Over the last 2 weeks, how often have you been bothered by any of the following problems? 1. Little interest or pleasure in doing things: not at all 2. Feeling down, depressed, or hopeless: not at all 3. Trouble falling or staying asleep, or sleeping too much: not at all 4. Feeling tired or having little energy: not at all 5. Poor appetite or overeating: not at all 6. Feeling bad about yourself - or that you are a failure or have let yourself or your family down: not at all 7. Trouble concentrating on things, such as reading the newspaper or watching television: not at all 8. Moving or speaking so slowly that other people could have noticed. Or the opposite - being so fidgety or restless that you have been moving around a lot more than usual: not at all 9. Thoughts that you would be better off or of hurting yourself in some way: not at all Total score: 0 Depression Screening Interpretation: Negative Depression Screening Done: Yes 68512 - PHQ-9 Billing: Yes Source: Developed by Drs. Al Amato, Nathaly Allison, Yvan Wu and colleagues, with an educational mindy from [employer]. Thrive Questionnaire Date Thrive assessed: 09/05/23 I am a: Patient What is your living situation today?: I have a steady place to live Within the past 12 months, did the food you bought not last and you didn't have the money to get more?: Never true Within the past 12 months, did you worry whether your food would run out before you got money to buy more?: Never true Do you have trouble paying for medicines?: No Do you have trouble getting transportation to medical appointments?: No Do you have trouble paying your heating and electricity bill?: No Do you have trouble taking care of your child, family member or friend?: No Do you have trouble with day-to-day activities such as bathing, preparing meals, shopping, managing finances, etc.?: No Are you currently unemployed and looking for a job?: No Are you interested in more education?: No Please select the resources that you would like help with: None Currently or been in a relationship where the following occur: no concerns reported THRIVE Score: 0 AUDIT C Alcohol Use Questionnaire (AUDIT-C) 1. How often do you have a drink containing alcohol?: Monthly or less 2. How many drinks containing alcohol do you have on a typical day when you are drinking?: 1 or 2 Total Score: 1 Score Reviewed/Action Taken: Yes KEYON-7 AMB Questionnaire KEYON-7 Date KEYON - 7 assessed: 09/05/23 Feeling nervous, anxious, or on edge: 0 = Not at all Not being able to stop or control worryin = Not at all Worrying too much about different things: 0 = Not at all Trouble relaxin = Not at all Being so restless that it is hard to sit still: 0 = Not at all Becoming easily annoyed or irritable: 0 = Not at all Feeling afraid as if something awful might happen: 0 = Not at all Total KEYON-7 score (0-4 normal; 5-9 mild; 10-14 moderate; 15-21 severe): 0 Source: Developed by Drs. Al Amato, Nathaly Allison, Yvan Wu and colleagues, with an educational mindy from [employer]. Review of Systems Const Denies fatigue, Denies fever(s) and Denies headache(s) ENT Denies dysphagia, Denies dizziness, Denies otalgia, Denies headache(s), Denies neck pain, Denies odynophagia, Denies sinus pain and Denies sore throat Card Denies chest pain, Denies palpitations and Denies dyspnea Resp Denies cough and Denies dyspnea GI Denies abdominal pain, Denies constipation, Denies dysphagia, Denies heartburn, Denies diarrhea, Denies nausea, Denies odynophagia and Denies vomiting Denies hematuria, Denies difficulty voiding, Denies nocturia, Denies dysuria and Denies urinary urgency Musc Denies back pain, Denies arthralgias and Denies neck pain Skin/Breast Denies rash Neuro Denies dizziness and Denies headache(s) Endo Denies fatigue and Denies palpitations Physical exam (Primary Care) Vital Signs: Last Vital Signs Pulse 60 09/05/23 10:27 BP 118/80 09/05/23 10:27 Pulse Ox 97 09/05/23 10:27 Oxygen Delivery Method Room Air 09/05/23 10:27 BMI result Body Mass Index 24.6 Tobacco/Smoking Status: Tobacco use Status Tobacco use date assessed 09/05/23 09/05/23 10:35 Patient Tobacco Use Status Never used Tobacco 09/05/23 10:25 e-Cigarette/Vaping Use Never Used 09/05/23 10:25 PHQ-9: PHQ-9 Score PHQ-9: Total score 0 09/05/23 11:13 Depression Screening Interpretation: Negative Thrive Assessment: Date of Thrive Assessment Date Thrive assessed 09/05/23 09/05/23 10:35 Currently or been in a relationship where the following occur: no concerns reported Const General: no acute distress and alert HENMT Ears: TM's normal bilaterally and EAC's normal Throat: Yes posterior oropharynx normal and Yes tonsils normal (no TP congestion) Neck Neck: Yes no lymphadenopathy and Yes supple Resp Auscultation: clear to auscultation bilaterally, no rales and no wheezes Cardio Rate: regular rate Rhythm: regular rhythm Heart sounds: no murmurs GI Palpation (GI): Soft to palpation and nontender Auscultation: normal bowel sounds Extrem General: Yes no clubbing, cyanosis or edema Results Reviewed Results Reviewed: Laboratory Tests 08/30/23 09/01/23 09/01/23 23:55 05:38 06:29 WBC 5.9 Hgb 13.1 Hct 36.8 L Plt Count 248 Sodium 134 L Potassium 4.1 Creatinine 0.64 Estimated GFR > 60 Random Glucose 93 Calcium 9.2 Magnesium 2.0 AST 16 ALT 8 Assessment and Plan Assessment & Plan (1) Sick sinus syndrome: Code(s): I49.5 - Sick sinus syndrome Plan: Patient developed AF with RVR back at the end of July 2023 and presented to the ER with symptoms of persistent palpitations She underwent ELIGIO with cardioversion successfully and has been predominantly bradycardic since She was scheduled for outpatient pacemaker insertion later this week but ended up going back to the ER last weekend for 2 separate episodes of chest pressure, nausea and diaphoresis She was admitted and ended up getting a dual chamber pacemaker insertion ahead of time on 09/01/2023 States that she has been feeling okay since with no recurrence of her chest pains/pressure or her previous symptoms of palpitations Continue Eliquis 5 mg BID for thromboembolism prophylaxis (CHADS VAsc score of 2), Metoprolol 50 mg BID and Fleicanide 50 mg Q 12 hours Follow up with cardiology as scheduled (2) Age related osteoporosis: Code(s): M81.0 - Age-related osteoporosis without current pathological fracture Qualifiers: Presence of current pathological fracture: without current pathological fracture Qualified Code(s): M81.0 - Age-related osteoporosis without current pathological fracture Plan: Her most recent BMD done on 02/07/2022 showed no significant change in BMD from her previous one done in 2019; lowest T-score was at -3.0 in the lumbar spine Patient continues to decline pharmacotherapy -? feels that she is healthy and active and prefers not to take any additional medications at this time Was referred to and seen by endocrinology over the past few months and advised that they do not need to see her regularly if she does not wish to pursue pharmacotherapy Continue Vitamin D and calcium supplements daily and patient is again reminded to exercise regularly and to practice fall precautions at all times (3) Dyslipidemia: Code(s): E78.5 - Hyperlipidemia, unspecified Plan: Reminded that her LDL cholesterol level is still slightly above normal on her most recent labs Reinforced low cholesterol diet Will recheck her labs and fasting lipids in December 2023 for follow up (4) Allergic rhinitis: Comment: Very mild, seasonal, does not require to use any medication. Code(s): J30.9 - Allergic rhinitis, unspecified Qualifiers: Allergic rhinitis trigger: unspecified Allergic rhinitis seasonality: unspecified Qualified Code(s): J30.9 - Allergic rhinitis, unspecified Plan: Continue Fluticasone nasal spray and/or OTC antihistamines like Loratadine 10 mg QD PRN for symptomatic relief (5) Vitamin D deficiency: Code(s): E55.9 - Vitamin D deficiency, unspecified Plan: Corrected - continue Vitamin D3 2000 units QD Plan Follow up as scheduled in December 2023 Orders: Orders Comprehensive Wilder. Panel Fast 12/01/23 E78.00 - Pure hypercholesterolemia, unspecified Lipid Panel 12/01/23 E78.00 - Pure hypercholesterolemia, unspecified TSH reflex Free T4 12/01/23 E78.00 - Pure hypercholesterolemia, unspecified Complete Blood Count Auto Diff 12/01/23 D64.9 - Anemia, unspecified UA CC w/rflx Micro + Cult 12/01/23 R30.0 - Dysuria Vitamin D 25-OH Total 12/01/23 E55.9 - Vitamin D deficiency, unspecified Coding Level of Care Code Est Pt Level 4 (56977) Diagnoses Sick sinus syndrome I49.5 Age-related osteoporosis without current pathological fracture M81.0 Presence of current pathological fracture: without current pathological fracture Dyslipidemia E78.5 Allergic rhinitis, unspecified seasonality, unspecified trigger J30.9 Allergic rhinitis trigger: unspecified Allergic rhinitis seasonality: unspecified Vitamin D deficiency E55.9
[2023-09-05 10:27] VITALS: BP 118/80; PULSE 60; O2SAT 97; BMI 24.6
== END 2023-09-05 11:14 | disposition home or self-care (01) ==
PROVIDERS: PCP Internal Medicine; Visit Provider Internal Medicine
DX: I49.5 Sick sinus syndrome (principal); M81.0 Age-related osteoporosis without current pathological fracture; E78.5 Hyperlipidemia, unspecified; J30.9 Allergic rhinitis, unspecified; E55.9 Vitamin D deficiency, unspecified
CPT/HCPCS: 99214

== ENCOUNTER 2023-09-17 08:54 | Outpatient (AMB) | payer MEDICARE, SELFPAY ==
[2023-09-17 09:23] VITALS: BP 130/82; PULSE 60; BMI 24.4
--- NOTE | 2023-09-17 09:23 | MHC.OFFVIS ---
Intake Vital Signs 09/17/23 09:23 Height 5 ft 1 in Weight 129 lb 3.054 oz BMI 24.4 BP 130/82 Blood Pressure Location Lt brachial Position Sitting Pulse 60 Pulse Source Monitor Intake Visit Reasons: 10 day wound check post new pacemaker Finance Advisor Required: No Access Consultant: Access Consultant Present Allergies Sulfa (Sulfonamide Antibiotics) Allergy (Intermediate, Verified 09/17/23 09:25) Swollen red eyes cefuroxime Adverse Reaction (Intermediate, Uncoded 09/17/23 09:25) Stomach Upset Medication List - Last Reconciled 09/17/23 by Sandra De Anda DIE HOLDER-C apixaban (Eliquis) 5 mg PO BID ascorbate calcium (vitamin C) 500 mg PO DAILY cholecalciferol (vitamin D3) 50 mcg PO DAILY 90 days flecainide 50 mg PO Q12H metoprolol tartrate 50 mg See Protocol PO BID HPI 10 day wound check post new pacemaker HPI Details Yaritza is a 72-year-old female with past medical history of hyperlipidemia, left atrial dilation, heart palpitations with newer finding of atrial fibrillation, symptomatic requiring ELIGIO cardioversion, then on flecainide and metoprolol develop sick sinus syndrome and had dual-chamber pacemaker placed. She now presents for follow-up. Today she has been feeling very well since her pacemaker was placed. She has no symptoms of lightheadedness, presyncope, syncope, falls. No recent heart palpitations. No chest discomfort, shortness of breath, PND, orthopnea or edema. Pacemaker site is feeling well. She was able to go on a 2 mi walk this past weekend and felt good. Taking meds as directed. is present. [facility] Medical History (Updated 09/17/23 @ 11:04 by Sadnra De Anda, DIE HOLDER-C) Sick sinus syndrome Atrial fibrillation with rapid ventricular response Atrial fibrillation History of transesophageal echocardiography (ELIGIO) Left atrial dilatation Orthostatic lightheadedness Pain and swelling of left lower leg Exertional dyspnea Swelling of joint of left hand Pain in joint of left hand Overweight (BMI 25.0-29.9) Allergic rhinitis Pure hypercholesterolemia Osteoarthritis Dyslipidemia Vitamin D deficiency Age related osteoporosis Surgical History (Updated 09/17/23 @ 11:04 by Sandra De Anda, DIE HOLDER-C) History of permanent cardiac pacemaker placement (~09/01/23) Status post cardiac catheterization History of cardiac cath Hx of cataract removal with insertion of prosthetic lens (~12/2014) Hx of section Family History Mother Prediabetes Hyperlipidemia Hypertension Father No problems noted. Social History Household Members: Spouse Housing: House Do you presently have visiting nurse or other home services: No Alcohol intake: current Alcohol intake frequency: does not drink Patient Tobacco Use Status: Never used Tobacco e-Cigarette/Vaping Use: Never Used Second Hand Smoke Exposure: Yes service: No Current occupational status: retired Cognitive needs: No Hearing needs: Yes Vision needs: No Review of Systems Const All systems reviewed & are unremarkable except as noted in HPI and below ENT Denies dizziness Card Denies chest pain, Denies chest pain at rest, Denies chest pain with activity, Denies rapid heart rate, Denies pedal edema, Denies edema, Denies leg edema, Denies lightheadedness, Denies palpitations, Denies dyspnea, Denies dyspnea on exertion and Denies orthopnea Resp Denies cough, Denies dyspnea and Denies dyspnea on exertion GI Denies hematochezia and Denies change in stool character Musc Denies abnormal gait, Denies limited range of motion, Denies muscle cramps, Denies muscle weakness, Denies numbness, Denies radiating pain into limb, Denies stiffness and Denies tingling Neuro Denies abnormal gait, Denies dizziness, Denies numbness and Denies tingling Endo Denies palpitations Physical Exam Vital Signs: Last Vital Signs Pulse 60 09/17/23 09:23 BP 130/82 09/17/23 09:23 BMI result Body Mass Index 24.4 Const General: cooperative, healthy appearing, comfortable and no acute distress Orientation/consciousness: patient oriented x3 Neck Neck: Yes normal visual inspection and Yes no JVD Chest Other: Pacer site left upper chest - dressing removed, incision well approximated, no bruising, swelling or drainage Resp Effort & Inspection: normal respiratory effort Auscultation: clear to auscultation bilaterally, no crackles, no rales, no rhonchi and no wheezes Cardio Jugular venous distension: no JVD Rate: regular rate Rhythm: regular rhythm Heart sounds: S1 normal heart sound present, S2 normal heart sound present, no murmurs and no rubs Neuro General: patient oriented x3 Extrem General: Yes normal to inspection, No no pedal edema and No calf tenderness Psych Appearance: grossly normal Mental Status: mental status grossly normal Speech and movement: Normal speech and movement present Office Procedures EKG Details: Today, read by me, Atrial paced rhythm, prolonged AV conduction,V sensed, RBBB, rate 60, QTc 430ms [id number], Complete Assessment & Plan Assessment & Plan (1) Sick sinus syndrome: Code(s): I49.5 - Sick sinus syndrome Plan: Patient develop symptomatic bradycardia when on flecainide and low-dose metoprolol. She underwent a dual-chamber pacemaker placement on 09/01/[address] Travis. She has been feeling well since that time with no concerning symptoms. Pacemaker site has the original dressing fully intact with no staining noted. Dressing gently removed and incision line is very well approximated. No drainage, redness, swelling or ecchymosis noted. Site care reviewed with her. Instructed to call if any concerns with pacemaker site. (2) History of permanent cardiac pacemaker placement: Onset Date: ~09/01/23 Comment: [facility] Code(s): Z95.0 - Presence of cardiac pacemaker Plan: New [facility] dual-chamber pacemaker in place. EKG today is showing atrial paced, V sensed rhythm. She has remote monitoring set up. Will arrange for office device check in 1 month which will be 6 weeks post placement. Amplitudes currently up and can be turned down at that time. Patient feeling well overall. (3) Paroxysmal atrial fibrillation: Code(s): I48.0 - Paroxysmal atrial fibrillation Plan: Newer finding of paroxysmal atrial fibrillation she had previously reported heart palpitations however cardiac monitoring did not show atrial fibrillation. She then presented to [facility] on 07/29/2023 with rapid heart palpitations and found to have atrial fibrillation with rapid ventricular response. She was treated with rate control then during that admission she did undergo a transesophageal echocardiogram and cardioversion. She was put on flecainide to help maintain rhythm control as well as metoprolol. On follow-up it was noted that her heart rate was low and new right bundle branch block noted on EKG. Plan was for pacemaker placement however she presented with symptoms of lightheadedness, nausea and the pacemaker was done sooner. It was inserted on 09/01/2023. She has been doing well since that time. She has not noticed any heart palpitations. She remains on flecainide 50 mg b.i.d. and metoprolol tartrate 50 mg b.i.d.. She is on Eliquis 5 mg b.i.d. for anticoagulation. No bleeding issues reported. Labs done 09/01/2023 showed creatinine 0.64, hemoglobin 36.8. (4) Status post cardiac catheterization: Comment: 05/12/2021 left main, lad, LCX normal. RCA with mild luminal irregularities, less than 30% stenosis, PCWP 4, PA 24/4, CI 2.1 Code(s): Z98.890 - Other specified postprocedural states Plan: Minimal nonobstructive coronary artery disease. No reports of anginal sounding symptoms. She has not on aspirin as she is on Eliquis. He has not on statin for unclear reason. Would recommend statin use unless contraindicated. Will forward this to her PCP. She is on metoprolol. (5) Visit for wound check: Code(s): Z51.89 - Encounter for other specified aftercare Plan: As above. Pacemaker site left upper chest healing well Plan Time spent on chart review, documentation, interview and assessment Coding Level of Care Code Est Pt Level 4 (31249) Diagnoses Sick sinus syndrome I49.5 History of permanent cardiac pacemaker placement Z95.0 Paroxysmal atrial fibrillation I48.0 Status post cardiac catheterization Z98.890 Visit for wound check Z51.89 CPT Codes EKG - CPT: 70643-[id number], Complete ([id number]) Time Spent (min) 28
== END 2023-09-17 10:24 | disposition home or self-care (01) ==
PROVIDERS: PCP Internal Medicine; Visit Provider Nurse Practitioner Family
DX: I49.5 Sick sinus syndrome (principal); Z95.0 Presence of cardiac pacemaker; I48.0 Paroxysmal atrial fibrillation; Z98.890 Other specified postprocedural states; Z51.89 Encounter for other specified aftercare
CPT/HCPCS: 93010; 99214

== ENCOUNTER → 2023-09-17 08:54 | Outpatient (BNVA) | payer MEDICARE, SELFPAY | PROVIDERS: PCP Internal Medicine; Visit Provider Nurse Practitioner Family | DX: I49.5 Sick sinus syndrome (principal); Z95.0 Presence of cardiac pacemaker | CPT/HCPCS: 93005; 99212 ==

== ENCOUNTER → 2023-10-09 23:59 | Outpatient (BNV) | payer MEDICARE, SELFPAY ==
--- NOTE | 2023-10-10 15:35 | MHC.OFFVIS ---
Intake Intake Visit Reasons: Remote device check- [facility] Allergies Sulfa (Sulfonamide Antibiotics) Allergy (Intermediate, Verified 09/17/23 09:25) Swollen red eyes cefuroxime Adverse Reaction (Intermediate, Uncoded 09/17/23 09:25) Stomach Upset PFSH Medical History (Updated 10/10/23 @ 15:36 by Tomer Morales MD) Cardiac pacemaker in situ Sick sinus syndrome Atrial fibrillation with rapid ventricular response Atrial fibrillation History of transesophageal echocardiography (ELIGIO) Left atrial dilatation Orthostatic lightheadedness Pain and swelling of left lower leg Exertional dyspnea Swelling of joint of left hand Pain in joint of left hand Overweight (BMI 25.0-29.9) Allergic rhinitis Pure hypercholesterolemia Osteoarthritis Dyslipidemia Vitamin D deficiency Age related osteoporosis Surgical History (Updated 09/17/23 @ 11:04 by Sandra De Anda NP-C) History of permanent cardiac pacemaker placement (~09/01/23) Status post cardiac catheterization History of cardiac cath Hx of cataract removal with insertion of prosthetic lens (~12/2014) Hx of section Family History Mother Prediabetes Hyperlipidemia Hypertension Father No problems noted. Social History Household Members: Spouse Housing: House Do you presently have visiting nurse or other home services: No Alcohol intake: current Alcohol intake frequency: does not drink Patient Tobacco Use Status: Never used Tobacco e-Cigarette/Vaping Use: Never Used Second Hand Smoke Exposure: Yes service: No Current occupational status: retired Cognitive needs: No Hearing needs: Yes Vision needs: No Office Procedures Cardiac Device Check Cardiac Device Check Details: Remote pacemaker report generated 10/09/2023. Pacemaker function is adequate [id number] Cardiac Device Interrogation, pacemaker Procedure code (CPT) selection complete Assessment & Plan Assessment & Plan (1) Cardiac pacemaker in situ: Code(s): Z95.0 - Presence of cardiac pacemaker Plan: See above Coding Level of Care Code Procedure Only Diagnoses Cardiac pacemaker in situ Z95.0 CPT Codes Cardiac Device Check - Cardiac Device 12: [id number] Cardiac Device Interrogation, pacemaker ([id number])
== END ==
PROVIDERS: PCP Internal Medicine; Visit Provider Internal Medicine Cardiovascular Disease
DX: Z45.018 Encounter for adjustment and management of other part of cardiac pacemaker (principal)
CPT/HCPCS: 93294

== ENCOUNTER 2023-10-18 10:24 | Outpatient (AMB) | payer MEDICARE, SELFPAY ==
--- NOTE | 2023-10-18 10:25 | A.OFFVIS_ITS ---
Intake Vital Signs 10/18/23 10:26 Height 5 ft 1 in Weight 129 lb 10.109 oz BMI 24.5 BP 120/80 Pulse 63 Pulse Source Monitor Intake Visit Reasons: 7 wk f/up Vice President Education Required: No Drafter Detail: Drafter Detail Present Allergies Sulfa (Sulfonamide Antibiotics) Allergy (Intermediate, Verified 10/18/23 10:28) Swollen red eyes cefuroxime Adverse Reaction (Intermediate, Uncoded 10/18/23 10:28) Stomach Upset Medication List - Last Reconciled 10/18/23 by Tomer Morales MD apixaban (Eliquis) 5 mg PO BID ascorbate calcium (vitamin C) 500 mg PO DAILY cholecalciferol (vitamin D3) 50 mcg PO DAILY 90 days flecainide 50 mg PO Q12H metoprolol tartrate 25 mg PO BID HPI HPI Comments History of Present Illness Details Yaritza comes for follow-up. She has not had any symptoms of prolonged palpitation irregular heartbeat. Occasionally a blood pressure monitor reports irregular pulse. She underwent a pacemaker placement which is healing well. She still gets lightheaded when she is upright for long period time. She says she does not drink much water. Blood pressure systolic running between 100-110. She is worried about her diastolic blood pressure. Denies any exertional chest pain. No syncopal episodes. No worsening shortness of breath, orthopnea, PND P, leg edema. [facility] Medical History Cardiac pacemaker in situ Sick sinus syndrome Atrial fibrillation with rapid ventricular response Atrial fibrillation History of transesophageal echocardiography (ELIGIO) Left atrial dilatation Orthostatic lightheadedness Pain and swelling of left lower leg Exertional dyspnea Swelling of joint of left hand Pain in joint of left hand Overweight (BMI 25.0-29.9) Allergic rhinitis Pure hypercholesterolemia Osteoarthritis Dyslipidemia Vitamin D deficiency Age related osteoporosis Surgical History History of permanent cardiac pacemaker placement (~09/01/23) Status post cardiac catheterization History of cardiac cath Hx of cataract removal with insertion of prosthetic lens (~12/2014) Hx of section Family History Mother Prediabetes Hyperlipidemia Hypertension Father No problems noted. Social History Household Members: Spouse Housing: House Do you presently have visiting nurse or other home services: No Alcohol intake: current Alcohol intake frequency: does not drink Patient Tobacco Use Status: Never used Tobacco e-Cigarette/Vaping Use: Never Used Second Hand Smoke Exposure: Yes service: No Current occupational status: retired Cognitive needs: No Hearing needs: Yes Vision needs: No Review of Systems ENT Reports dizziness Card Denies chest pain, Denies chest pain at rest, Denies chest pain with activity, Denies rapid heart rate, Denies pedal edema, Denies edema, Denies leg edema, Denies lightheadedness, Denies palpitations, Reports dyspnea, Denies dyspnea on exertion and Denies orthopnea Resp Denies cough, Reports dyspnea and Denies dyspnea on exertion GI Denies hematochezia and Denies change in stool character Musc Denies abnormal gait, Reports limited range of motion, Reports muscle cramps, Denies muscle weakness, Denies numbness, Denies radiating pain into limb, Denies stiffness and Denies tingling Neuro Denies abnormal gait, Reports dizziness, Denies numbness and Denies tingling Endo Denies palpitations Physical Exam Vital Signs: Last Vital Signs Pulse 63 10/18/23 10:26 BP 120/80 10/18/23 10:26 BMI result Body Mass Index 24.5 Const General: cooperative, healthy appearing, comfortable, no acute distress and anxious Orientation/consciousness: patient oriented x3 Neck Neck: Yes normal visual inspection and Yes no JVD Chest Other: Pacer site left upper chest - dressing removed, incision well approximated, no bruising, swelling or drainage Resp Effort & Inspection: normal respiratory effort Auscultation: clear to auscultation bilaterally, no crackles, no rales, no rhonchi and no wheezes Cardio Jugular venous distension: no JVD Rate: regular rate Rhythm: regular rhythm Heart sounds: S1 normal heart sound present, S2 normal heart sound present, no murmurs and no rubs Neuro General: patient oriented x3 Extrem General: Yes normal to inspection, No no pedal edema and No calf tenderness Psych Appearance: grossly normal Mental Status: mental status grossly normal Speech and movement: Normal speech and movement present Office Procedures Cardiac Device Check Cardiac Device Check Details: Dual-chamber [employer] pacemaker in place. Programmed in DDDR at 60 beats per minute. No episodes of atrial fibrillation noted. Atrial pacing thresholds excellent and reprogrammed to enhance battery life. Ventricular pacing thresholds are stable. Atrial ventricular sensing is adequate. Pacing lead impedance is stable. Atrial pacing 100% of the time. Battery life is about 7- 10 years after readjustment [id number] Cardiac Device Check, pacemaker dual lead Procedure code (CPT) selection complete Assessment & Plan Assessment & Plan (1) Cardiac pacemaker in situ: Code(s): Z95.0 - Presence of cardiac pacemaker Plan: Cardiac pacemaker in-situ for sick sinus syndrome with symptomatic significant bradycardia. Patient currently doing well and pacer dependent in the atrium at 60 beats per minute. Pacemaker was readjusted. Working well. Follow-up remotely every 3 months. Follow up in the clinic in 6 months time. (2) Paroxysmal atrial fibrillation: Code(s): I48.0 - Paroxysmal atrial fibrillation Plan: Highly symptomatic paroxysmal atrial fibrillation without any recurrence on current antiarrhythmic drug therapy with flecainide. Her myocardial perfusion imaging in 2020 was within normal limits but goal updated to continue to use flecainide therapy. Continue metoprolol therapy concomitantly. Continue full oral anticoagulation, currently on Eliquis. Semi annual renal function test should be pursued. (3) Orthostatic lightheadedness: Code(s): R42 - Dizziness and giddiness Plan: Patient continues to have symptoms of orthostatic lightheadedness. I have advised her the mechanism of orthostasis. Advised to increase fluid intake to at least 64 oz a day. Will follow up in the clinic in 6 months time, sooner p.r.n.. Thank you for allowing me to partake in her care Medications: New metoprolol tartrate 25 mg PO BID 180 tabs 3RF Refilled apixaban (Eliquis) 5 mg PO BID 180 tabs 3RF flecainide 50 mg PO Q12H 180 tabs 3RF Coding Level of Care Code Est Pt Level 4 (68136) Diagnoses Cardiac pacemaker in situ Z95.0 Paroxysmal atrial fibrillation I48.0 Orthostatic lightheadedness R42 CPT Codes Cardiac Device Check - Cardiac Device 2: [id number] Cardiac Device Check, pacemaker dual lead ([id number])
[2023-10-18 10:26] VITALS: BP 120/80; PULSE 63; BMI 24.5
== END 2023-10-18 11:03 | disposition home or self-care (01) ==
PROVIDERS: PCP Internal Medicine; Visit Provider Internal Medicine Cardiovascular Disease
DX: I48.0 Paroxysmal atrial fibrillation (principal); Z95.0 Presence of cardiac pacemaker; R42 Dizziness and giddiness
CPT/HCPCS: 93280; 99214

== ENCOUNTER → 2023-10-18 10:24 | Outpatient (BNVA) | payer MEDICARE, SELFPAY | PROVIDERS: PCP Internal Medicine; Visit Provider Internal Medicine Cardiovascular Disease | DX: Z45.018 Encounter for adjustment and management of other part of cardiac pacemaker (principal); I48.0 Paroxysmal atrial fibrillation; R42 Dizziness and giddiness | CPT/HCPCS: 93280; 99212 ==

== ENCOUNTER 2023-11-08 07:01 | Outpatient (REF) | payer MEDICARE, SELFPAY ==
[2023-11-08 10:36] LABS: MANUAL DIFF FLAG NO
[2023-11-08 10:45] LABS: Basophils Percent Auto 0.6 % (0-2); Eosinophils Absolute Auto 0.2 X10*3/uL (0.0-0.4); Eosinophils Percent Auto 3.8 % (0-4); Hematocrit 37.9 % (37.0-47.0); Imm Gran Abs Auto 0.02 X10*3/uL (0.00-0.03); Imm Gran Pct Auto 0.3 % (0.0-0.4); Lymphocytes Percent Auto 31.2 % (20-40); Mean Corpuscular HGB Conc 34.3 g/dl (31.0-35.0); Mean Corpuscular Hemoglobin 31.3 pg (27.0-33.0); Mean Corpuscular Volume 91.1 fL (80.0-98.0); Mean Platelet Volume 11.3 fL (9.4-12.3); Monocytes Absolute Auto 0.5 X10*3/uL (0.1-1.2); Monocytes Percent Auto 8.1 % (2-11); Neutrophils Absolute Auto 3.5 x10*3/uL (2.0-8.3); Platelet Count 313 X10*3/uL (160-400); Red Blood Count 4.16 X10*6/uL (4.20-5.50); Red Cell Distribution Width 12.9 % (11.0-16.0); White Blood Count 6.3 X10*3/uL (4.8-10.8)
[2023-11-08 10:47] LABS: Appearance Urine Clear; Color Urine Yellow; Glucose Urine UA Negative (Negative); Leukocyte Esterase Urine Moderate (2+) (Negative); Nitrite Urine Negative (Negative); UMIC TRIGGER UACC YES; Urine Blood Negative (Negative); Urine Ketones Negative (Negative); Urine Protein Negative (Neg-Trace)
[2023-11-08 10:53] LABS: Bacteria Urine None Seen (None Seen); Hyaline Casts Urine 0-2 /LPF (0-2); RBC Urine 0-2 /HPF (0-2); Squamous Epithelial Cell Urine 0-2 /HPF (0-2); UACC Culture Trigger YES
[2023-11-08 11:11] LABS: Alanine Aminotransferase 10 U/L (0-31); Albumin Level 4.1 g/dL (3.5-5.0); Alkaline Phosphatase 63 U/L (39-117); Anion Gap 13 (12-20); Aspartate Amino Transferase 17 U/L (5-31); Bilirubin Total 0.5 mg/dL (0.0-1.0); Blood Urea Nitrogen 11 mg/dL (9-16); Calcium 9.7 mg/dL (8.4-10.2); Carbon Dioxide 25 mmol/L (22-29); Chloride 102 mmol/L (96-108); Cholesterol 219 mg/dL (<200); Estimated Glomerular Filt Rate > 60; Glucose Fasting 92 mg/dL (60-99); HDL Cholesterol 73 mg/dL (>40); LDL Cholesterol Calculated 128 mg/dL (<100); Potassium 4.5 mmol/L (3.3-5.1); Sodium 135 mmol/L (135-145); Total Protein 7.2 g/dL (6.5-8.0); Triglycerides 91 mg/dL (<150)
[2023-11-08 11:30] LABS: TSH reflex Free T4 2.86 uIU/mL (0.32-4.0); Vitamin D 25-OH Total 48.5 ng/mL (>30)
== END 2023-11-08 07:02 | disposition home or self-care (01) ==
LOC: HO.HMGCLDS 07:01
PROVIDERS: PCP Internal Medicine; Visit Provider Internal Medicine
DX: E78.00 Pure hypercholesterolemia, unspecified (principal); D64.9 Anemia, unspecified; E55.9 Vitamin D deficiency, unspecified; R30.0 Dysuria
CPT/HCPCS: 36415; 80053; 80061; 81001; 82306; 84443; 85025; 87086

== ENCOUNTER → 2023-12-03 08:10 | Outpatient (REF) | payer MEDICARE, SELFPAY ==
--- NOTE | ~2023-12-03 | NM_ITS ---
Myocardial perfusion study Indication: Shortness of breath on exertion to evaluate for myocardial ischemia Technique: The patient was brought in for a Lexiscan perfusion study on 12/03/2023. Patient performed low-level exercise and was injected 0.4 mg of Lexiscan intravenously. Within a minute of injection, 25 mCi of sestamibi was given intravenously. Images were obtained using the SPECT gamma camera interlaced with the gating device. Images were obtained in supine position. Resting perfusion study was performed on 12/05/2023. Patient was administered 25 mCi of sestamibi intravenously at rest. Images were then obtained in supine position. Images obtained with and without CT attenuation. Total DLP 72 mGy-cm. Images were processed with the software and compared side to side in short axis, horizontal long axis and vertical long axis views. Findings: The stress perfusion study showed non attenuated images show minimally reduced uptake in the anterior and mildly reduced uptake in the distal anterior and apex of the LV myocardium. Attenuation corrected images show mildly reduced uptake in the anterior and moderately reduced uptake in the apex of the LV myocardium. Remainder of the LV myocardium is normally perfused.. The gated study shows normal LV systolic function with calculated LVEF of 63%. LV cavity is minimally dilated size. The gated study shows normal wall thickening and contraction of segments. Resting study shows both attenuated as well as non attenuated images show improvement in uptake in the anterior and apical wall of the LV myocardium.. Gating at rest reveals normal systolic wall motion with ejection fraction at 72%. The findings are consistent with minimal to mild intensity reversible defect of the anterior and apical wall of the LV myocardium suggestive of ischemia.. NM/NM jan perf SPECT rest & str Impression: 1. Myocardial perfusion imaging study shows equivocal for anterior and mild intensity apical ischemia in LAD territory 2. Gated LVEF is 63% 3. Transient ischemic dilatation present EKG is nondiagnostic for ischemia
--- NOTE | 2023-12-03 08:12 | CA_ITS ---
Acquisition Time: 2023-12-03 08:21:54 Total Exercise Time: 00:02:00 Test Indications: SOB, DIZZINESS Medications: SEE H Protocol: LEXISCAN Max HR: 076 BPM 52% of Pred: 146 BPM Max BP: 132/080 mmHG Max Work Load: 1.0 METS Pharmacological stress test with Lexiscan while sitting without anginal symptoms, without arrhythmias, with normotensive response to injection, with nondiagnoisitic EKGs. Aminophylline 75mg IVP given to reverse Lexiscan. Nuclear images pending. Test reviewed with Dr. Morales Referred By: Tomer Morales Overread By: Tere Clay
== END ==
LOC: HO.CARD 08:10
PROVIDERS: PCP Internal Medicine; Visit Provider Internal Medicine Cardiovascular Disease
DX: R06.02 Shortness of breath (principal)
CPT/HCPCS: 78452; 93017; A9500; J0280; J2785

== ENCOUNTER → 2023-12-03 08:12 | Outpatient (BNV) | payer MEDICARE, SELFPAY | PROVIDERS: PCP Internal Medicine; Visit Provider Nurse Practitioner | DX: R06.02 Shortness of breath (principal) | CPT/HCPCS: 78452; 93016; 93018 ==

== ENCOUNTER 2023-12-10 08:12 | Outpatient (AMB) | payer MEDICARE, SELFPAY ==
--- NOTE | 2023-12-10 08:26 | MHC.OFFVIS ---
Vital Signs 12/10/23 08:27 Height 5 ft 1 in Weight 127 lb 13.89 oz BMI 24.2 BP 118/68 Blood Pressure Location Lt brachial Position Sitting Pulse 60 Intake Visit Reasons: 6 mth Intake Note: 6 month follow-up with ekg c/o nausa this morning after eating and felt this way yesterday Lead Manufacturing Engineer Required: No Server Systems Administrator: Server Systems Administrator Present Accompanied by: Spouse Allergies Sulfa (Sulfonamide Antibiotics) Allergy (Intermediate, Verified 10/18/23 10:28) Swollen red eyes cefuroxime Adverse Reaction (Intermediate, Uncoded 10/18/23 10:28) Stomach Upset Medication List - Last Reconciled 12/10/23 by Tomer Morales MD apixaban (Eliquis) 5 mg PO BID ascorbate calcium (vitamin C) 500 mg PO DAILY cholecalciferol (vitamin D3) 50 mcg PO DAILY 90 days metoprolol tartrate 25 mg PO BID HPI Comments Details: Yaritza comes for follow-up for pacemaker check and after recent stress test. Recent stress test was abnormal and she is scheduled for coronary CTA and she was advised that over the phone. She has got a little more anxious. We did stop her flecainide due to abnormal stress test and we await the findings of coronary CTA. She has not had any recurrent palpitation however over the weekend she says she did not feel well and had some GI symptoms. She feels nausea and discomfort after eating including having that episode this morning. She came in today and her heart is in normal rhythm at this point in time with atrially paced rhythm with no evidence of atrial fibrillation with the last few days [facility] Medical History Cardiac pacemaker in situ Sick sinus syndrome Atrial fibrillation with rapid ventricular response Atrial fibrillation History of transesophageal echocardiography (ELIGIO) Left atrial dilatation Orthostatic lightheadedness Pain and swelling of left lower leg Exertional dyspnea Swelling of joint of left hand Pain in joint of left hand Overweight (BMI 25.0-29.9) Allergic rhinitis Pure hypercholesterolemia Osteoarthritis Dyslipidemia Vitamin D deficiency Age related osteoporosis Surgical History History of permanent cardiac pacemaker placement (~09/01/23) Status post cardiac catheterization History of cardiac cath Hx of cataract removal with insertion of prosthetic lens (~12/2014) Hx of section Family History Mother Prediabetes Hyperlipidemia Hypertension Father No problems noted. Social History Household Members: Spouse Housing: House Do you presently have visiting nurse or other home services: No Alcohol intake: current Alcohol intake frequency: does not drink Patient Tobacco Use Status: Never used Tobacco e-Cigarette/Vaping Use: Never Used Second Hand Smoke Exposure: Yes service: No Current occupational status: retired Cognitive needs: No Hearing needs: Yes Vision needs: No Review of Systems Const Denies chills, Denies fatigue, Denies fever(s), Denies frequent falls, Denies weakness, Denies weight gain and Denies weight loss ENT Denies dizziness Card Denies chest pain, Denies leg edema, Denies lightheadedness, Denies palpitations, Denies dyspnea, Denies dyspnea on exertion, Denies orthopnea and Denies other (loss of consciousness) Resp Denies cough, Denies dyspnea and Denies dyspnea on exertion GI Denies hematochezia and Denies change in stool character Musc Denies abnormal gait, Denies muscle weakness, Denies numbness, Denies radiating pain into limb and Denies tingling Neuro Denies abnormal gait, Denies dizziness, Denies frequent falls, Denies numbness, Denies tingling and Denies weakness Endo Denies fatigue and Denies palpitations Physical Exam Vital Signs: Last Vital Signs Pulse 60 12/10/23 08:27 BP 118/68 12/10/23 08:27 BMI result Body Mass Index 24.2 Const General: cooperative, healthy appearing, comfortable, no acute distress and anxious Orientation/consciousness: patient oriented x3 Neck Neck: Yes normal visual inspection and Yes no JVD Chest Other: Pacer site left upper chest - dressing removed, incision well approximated, no bruising, swelling or drainage Resp Effort & Inspection: normal respiratory effort Auscultation: clear to auscultation bilaterally, no crackles, no rales, no rhonchi and no wheezes Cardio Jugular venous distension: no JVD Rate: regular rate Rhythm: regular rhythm Heart sounds: S1 normal heart sound present, S2 normal heart sound present, no murmurs and no rubs Neuro General: patient oriented x3 Extrem General: Yes normal to inspection, No no pedal edema and No calf tenderness Psych Appearance: grossly normal Mental Status: mental status grossly normal Speech and movement: Normal speech and movement present Office Procedures Cardiac Device Check Cardiac Device Check Details: Dual-chamber [employer] pacemaker in place. Programmed in DDDR at 60 beats per minute. No episodes of atrial fibrillation. Atrial pacing 99% of the time. Atrial ventricular pacing thresholds were excellent and reprogrammed to enhance battery life. Atrial ventricular sensing is excellent. Pacing lead impedance is stable. Battery life is at about 10 and half years [id number] Cardiac Device Check, pacemaker dual lead Procedure code (CPT) selection complete EKG Details: . EKG shows atrially paced, ventricularly sensed rhythm with right bundle-branch block [id number], Complete Assessment & Plan Assessment & Plan (1) Paroxysmal atrial fibrillation: Code(s): I48.0 - Paroxysmal atrial fibrillation Category: Medical Plan: Highly symptomatic paroxysmal atrial fibrillation which has remained suppressed currently. Off flecainide therapy due to abnormal stress test, see below. She would like something in replacement. Will prescribe on Multaq 400 mg b.i.d. which is safe to use in this setting. Discussed with her about use of Multaq. Continue rhythm control approach. Continue full oral anticoagulation, currently on Eliquis 5 mg b.i.d.. Continue metoprolol therapy. Avoidance of stimulants was discussed. Stress mitigation strategies was discussed. (2) Cardiac pacemaker in situ: Code(s): Z95.0 - Presence of cardiac pacemaker Category: Medical Plan: Cardiac pacemaker in-situ for sick sinus syndrome. Pacemaker is working well at this point time. Continue to monitor in the clinic and will follow up in 3 months time. (3) Abnormal nuclear stress test: Code(s): R94.39 - Abnormal result of other cardiovascular function study Plan: Abnormal nuclear stress test with no current concerning exertional symptoms at this point time. She has recurrent epigastric discomfort after eating food which are most likely suggestive of gastritis/related to hiatal hernia. Consider antiacid therapy. Would suggest a coronary CTA which should be done in near future. For now continue Eliquis therapy. Avoid strenuous exertion was discussed with her. Further treatment based on the findings of coronary CTA. Possible that she is false-positive myocardial perfusion imaging and may resume flecainide therapy after that. Will follow up in the clinic in 3 months time, sooner p.r.n.. Thank you for allowing me to partake in her care Medications: New dronedarone (Multaq) must administer with a meal/food 400 mg PO BID 60 tabs 2RF Coding Level of Care Code Est Pt Level 4 (78818) Diagnoses Paroxysmal atrial fibrillation I48.0 Cardiac pacemaker in situ Z95.0 Abnormal nuclear stress test R94.39 CPT Codes Cardiac Device Check - Cardiac Device 2: [id number] Cardiac Device Check, pacemaker dual lead ([id number]) EKG - CPT: 84501-[id number], Complete ([id number])
[2023-12-10 08:27] VITALS: BP 118/68; PULSE 60; BMI 24.2
== END 2023-12-10 09:08 | disposition home or self-care (01) ==
PROVIDERS: PCP Internal Medicine; Visit Provider Internal Medicine Cardiovascular Disease
DX: I48.0 Paroxysmal atrial fibrillation (principal); Z95.0 Presence of cardiac pacemaker; R94.39 Abnormal result of other cardiovascular function study; R94.31 Abnormal electrocardiogram [ECG] [EKG]
CPT/HCPCS: 93010; 93280; 99214

== ENCOUNTER → 2023-12-10 08:12 | Outpatient (BNVA) | payer MEDICARE, SELFPAY | PROVIDERS: PCP Internal Medicine; Visit Provider Internal Medicine Cardiovascular Disease | DX: I48.0 Paroxysmal atrial fibrillation (principal); I45.10 Unspecified right bundle-branch block; R94.39 Abnormal result of other cardiovascular function study; Z45.018 Encounter for adjustment and management of other part of cardiac pacemaker | CPT/HCPCS: 93005; 93280; 99212 ==

== ENCOUNTER 2023-12-11 10:30 | Outpatient (AMB) | payer MEDICARE, SELFPAY ==
[2023-12-11 10:31] VITALS: BP 120/68; PULSE 60; O2SAT 97; BMI 24.2
--- NOTE | 2023-12-11 10:31 | MHC.PC.OV ---
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 Allergies Sulfa (Sulfonamide Antibiotics) Allergy (Intermediate, Verified 12/11/23 11:20) Swollen red eyes cefuroxime Adverse Reaction (Intermediate, Uncoded 12/11/23 11:20) Stomach Upset Medication List - Last Reconciled 12/11/23 by Bernabe Peterson MD apixaban (Eliquis) 5 mg PO BID ascorbate calcium (vitamin C) 500 mg PO DAILY cholecalciferol (vitamin D3) 50 mcg PO DAILY 90 days dronedarone (Multaq) 400 mg PO BID metoprolol tartrate 25 mg PO BID Tobacco use date assessed: 12/11/23 Fall risk assessment: No Falls in past year Last assessed Fall Risk: 12/11/23 Dental Screening Dental Screen Date: 09/05/23 Did you have a dental visit in the last 12 months?: No Did you have a dental problem in the last 6 months where you did not have access to dental care?: No HPI 6 month f/u HPI Details Patient comes in today for her follow up visit States that she currently feels okay Was seen by cardiology yesterday for follow up of a recent abnormal stress test States that she is currently awaiting scheduling for a coronary CT at [facility] for further evaluation She was also switched from Fleicanide due to her abnormal stress test to Multaq [address] Morales yesterday States that she took her first dose yesterday without any problems but she had diarrhea a few times after she took her second dose earlier today - is wondering if this is to be expected from the medication She denies any headaches or dizziness Denies any chest pains, no SOB; denies any recent palpitations No nausea/vomiting or abdominal pain at present but recalls experiencing some epigastric discomfort at times lately, most recently a few days ago when she did not eat her dinner on time Also noted some increase in her stomach symptoms for a while after she ate; symptoms gradually subsided a few minutes later She had her follow up labs done last month - to discuss her results FORMERLY [facility], [facility] Medical History (Updated 12/11/23 @ 12:22 by Bernabe Peterson MD) GERD (gastroesophageal reflux disease) Cardiac pacemaker in situ Sick sinus syndrome Atrial fibrillation with rapid ventricular response Atrial fibrillation History of transesophageal echocardiography (ELIGIO) Left atrial dilatation Orthostatic lightheadedness Pain and swelling of left lower leg Exertional dyspnea Swelling of joint of left hand Pain in joint of left hand Overweight (BMI 25.0-29.9) Allergic rhinitis Pure hypercholesterolemia Osteoarthritis Dyslipidemia Vitamin D deficiency Age related osteoporosis Surgical History History of permanent cardiac pacemaker placement (~09/01/23) Status post cardiac catheterization History of cardiac cath Hx of cataract removal with insertion of prosthetic lens (~12/2014) Hx of section Family History Mother Prediabetes Hyperlipidemia Hypertension Father No problems noted. Social History Household Members: Spouse Housing: House Do you presently have visiting nurse or other home services: No Alcohol intake: current Alcohol intake frequency: does not drink Patient Tobacco Use Status: Never used Tobacco e-Cigarette/Vaping Use: Never Used Second Hand Smoke Exposure: Yes service: No Current occupational status: retired Cognitive needs: No Hearing needs: Yes Vision needs: No Questionnaire Thrive Questionnaire Date Thrive assessed: 09/05/23 AUDIT C Alcohol Use Questionnaire (AUDIT-C) 1. How often do you have a drink containing alcohol?: Monthly or less 2. How many drinks containing alcohol do you have on a typical day when you are drinking?: 1 or 2 3. How often do you have six or more drinks on one occasion?: Never Total Score: 1 Score Reviewed/Action Taken: Yes KEYON-7 AMB Questionnaire KEYON-7 Date KEYON - 7 assessed: 09/05/23 Source: Developed by Drs. Al Amato, Nathaly Allison, Yvan Wu and colleagues, with an educational mindy from [employer]. Review of Systems Const Denies chills, Denies fatigue, Denies fever(s) and Denies headache(s) ENT Denies dysphagia, Denies dizziness, Denies otalgia, Denies headache(s), Denies neck pain, Denies odynophagia, Denies sinus pain and Denies sore throat Card Denies chest pain, Denies palpitations and Denies dyspnea Resp Denies cough, Denies dyspnea and Denies wheezing GI Denies abdominal pain (more of epigastric discomfort, on and off - see HPI), Denies constipation, Denies dysphagia, Denies heartburn, Denies diarrhea, Denies nausea, Denies odynophagia and Denies vomiting Denies hematuria, Denies difficulty voiding, Denies nocturia, Denies dysuria and Denies urinary urgency Musc Denies back pain, Denies arthralgias and Denies neck pain Skin/Breast Denies rash Neuro Denies dizziness and Denies headache(s) Endo Denies fatigue and Denies palpitations Aller/Immun Denies wheezing Physical exam (Primary Care) Vital Signs: Last Vital Signs Pulse 60 12/11/23 10:31 BP 120/68 12/11/23 10:31 Pulse Ox 97 12/11/23 10:31 Oxygen Delivery Method Room Air 12/11/23 10:31 BMI result Body Mass Index 24.2 Tobacco/Smoking Status: Tobacco use Status Tobacco use date assessed 12/11/23 12/11/23 10:32 Patient Tobacco Use Status Never used Tobacco 12/11/23 10:32 e-Cigarette/Vaping Use Never Used 12/11/23 10:32 Thrive Assessment: Date of Thrive Assessment Date Thrive assessed 09/05/23 12/11/23 10:32 Const General: no acute distress and alert HENMT Ears: TM's normal bilaterally and EAC's normal Throat: Yes posterior oropharynx normal and Yes tonsils normal (no TP congestion) Neck Neck: Yes no lymphadenopathy and Yes supple Thyroid: Thyroid normal Resp Auscultation: clear to auscultation bilaterally, no rales and no wheezes Cardio Rate: regular rate Rhythm: regular rhythm Heart sounds: no murmurs GI Palpation (GI): Soft to palpation, Tenderness to palpation present (GI) (mild) in the epigastrum, no guarding, not rigid and No Rebound tenderness present Auscultation: normal bowel sounds General: Yes no CVA tenderness Back/Spine/Pelvis Back: no CVA tenderness Thoracic/Lumbar Spine: No lumbar spinal tenderness Skin Rashes: no rashes Extrem General: Yes no clubbing, cyanosis or edema Results Reviewed Results Reviewed: Laboratory Tests 11/08/23 11/08/23 07:06 07:10 WBC 6.3 Hgb 13.0 Hct 37.9 Plt Count 313 D Sodium 135 Potassium 4.5 Creatinine 0.66 Estimated GFR > 60 Fasting Glucose 92 Calcium 9.7 AST 17 ALT 10 Triglycerides 91 Cholesterol 219 H LDL Cholesterol, Calc 128 H HDL Cholesterol 73 25-OH Vitamin D Total 48.5 TSH 2.86 Ur Specific [place] 1.010 Urine Protein Negative Urine Glucose (UA) Negative Urine Blood Negative Urine Nitrite Negative Ur Leukocyte Esterase Moderate (2+) H Assessment and Plan Assessment & Plan (1) Abnormal pharmacologic myocardial perfusion study: Code(s): R94.30 - Abnormal result of cardiovascular function study, unspecified Plan: Her myocardial perfusion study done on 12/03/2023 revealed (+) equivocal findings for anterior and mild intensity apical ischemia in the LAD territory, with (+) transient ischemic dilatation noted. Gated LVEF is at 63% She is currently awaiting scheduling for coronary CT for further evaluation (2) Sick sinus syndrome: Code(s): I49.5 - Sick sinus syndrome Plan: Patient developed AF with RVR back at the end of July 2023 and presented to the ER with symptoms of persistent palpitations She underwent ELIGIO with cardioversion successfully and has been predominantly bradycardic since She was scheduled for outpatient pacemaker insertion in early August 2023 but ended up going back to the ER that weekend for 2 separate episodes of chest pressure, nausea and diaphoresis She was admitted and ended up getting a dual chamber pacemaker insertion ahead of time on 09/01/2023 States that she has been feeling okay since with no recurrence of her chest pains/pressure or her previous symptoms of palpitations since Continue Eliquis 5 mg BID for thromboembolism prophylaxis (CHADS VAsc score of 2) and Metoprolol 50 mg BID Her Fleicanide 50 mg Q 12 hours was discontinued due to her recent abnormal stress test and she was started instead on Multaq 400 mg BID She reports experiencing a couple of episodes of diarrhea after her 2nd dose of Multaq (did not have any problems with her first dose) Have advised her to continue on her current Rx for now but if her diarrhea persists after taking Multaq consistently over the next couple of days, then she should check back with cardiology to see what they would recommend as alternative Rx Follow up with cardiology as scheduled (3) Dyslipidemia: Code(s): E78.5 - Hyperlipidemia, unspecified Plan: Results of her labs done last month reviewed and discussed with patient She is reminded that her LDL cholesterol level is still slightly above normal on her most recent labs although they have improved slightly from previous Discussed that depending on how her coronary CT comes out, if it shows (+) significant CAD, then she will need to be started on statin Rx to help get her cholesterol levels to goal quickly Reinforced low cholesterol diet Will recheck her labs and fasting lipids in 6 months for follow up (4) GERD (gastroesophageal reflux disease): Code(s): K21.9 - Gastro-esophageal reflux disease without esophagitis Qualifiers: Esophagitis presence: without esophagitis Qualified Code(s): K21.9 - Gastro-esophageal reflux disease without esophagitis Plan: Patient is advised that her recent epigastric / GI symptoms are suggestive of GERD or gastritis Upper GI series done back in 2020 revealed (+) acid reflux as well as a hiatal hernia Discussed again dietary restrictions in GERD Will also start her on Pantoprazole 40 mg QD She is advised that since she is on anticoagulation, we need to ensure that her GI symptoms do not progress any further (5) Age related osteoporosis: Code(s): M81.0 - Age-related osteoporosis without current pathological fracture Qualifiers: Presence of current pathological fracture: without current pathological fracture Qualified Code(s): M81.0 - Age-related osteoporosis without current pathological fracture Plan: Her most recent BMD done on 02/07/2022 showed no significant change in BMD from her previous one done in 2019; lowest T-score was at -3.0 in the lumbar spine Patient continues to decline pharmacotherapy -? feels that she is healthy and active and prefers not to take any additional medications at this time Was referred to and seen by endocrinology over the past few months and advised that they do not need to see her regularly if she does not wish to pursue pharmacotherapy Continue Vitamin D and calcium supplements daily and patient is again reminded to exercise regularly and to practice fall precautions at all times (6) Vitamin D deficiency: Code(s): E55.9 - Vitamin D deficiency, unspecified Plan: Continue Vitamin D3 2000 units QD (7) Allergic rhinitis: Comment: Very mild, seasonal, does not require to use any medication. Code(s): J30.9 - Allergic rhinitis, unspecified Qualifiers: Allergic rhinitis trigger: unspecified Allergic rhinitis seasonality: unspecified Qualified Code(s): J30.9 - Allergic rhinitis, unspecified Plan: Continue Fluticasone nasal spray and/or OTC antihistamines like Loratadine 10 mg QD PRN for symptomatic relief Plan Follow up in 6 months Orders: Orders Complete Blood Count Auto Diff 6 Months D64.9 - Anemia, unspecified UA CC w/rflx Micro + Cult 6 Months R30.0 - Dysuria Vitamin D 25-OH Total 6 Months E55.9 - Vitamin D deficiency, unspecified Comprehensive [place]. Panel Fast 6 Months E78.00 - Pure hypercholesterolemia, unspecified Lipid Panel 6 Months E78.00 - Pure hypercholesterolemia, unspecified TSH reflex Free T4 6 Months E78.00 - Pure hypercholesterolemia, unspecified Medications: New pantoprazole 40 mg PO DAILY 90 days 90 tabs 3RF Coding Level of Care Code Est Pt Level 4 (57870) Complex EM visit Add On G2211 Diagnoses Abnormal pharmacologic myocardial perfusion study R94.30 Sick sinus syndrome I49.5 Dyslipidemia E78.5 Gastroesophageal reflux disease without esophagitis K21.9 Esophagitis presence: without esophagitis Age-related osteoporosis without current pathological fracture M81.0 Presence of current pathological fracture: without current pathological fracture Vitamin D deficiency E55.9 Allergic rhinitis, unspecified seasonality, unspecified trigger J30.9 Allergic rhinitis trigger: unspecified Allergic rhinitis seasonality: unspecified
== END 2023-12-11 11:38 | disposition home or self-care (01) ==
PROVIDERS: PCP Internal Medicine; Visit Provider Internal Medicine
DX: R94.30 Abnormal result of cardiovascular function study, unspecified (principal); I49.5 Sick sinus syndrome; E78.5 Hyperlipidemia, unspecified; K21.9 Gastro-esophageal reflux disease without esophagitis; M81.0 Age-related osteoporosis without current pathological fracture; E55.9 Vitamin D deficiency, unspecified; J30.9 Allergic rhinitis, unspecified
CPT/HCPCS: 99214; G2211

== ENCOUNTER 2023-12-22 07:24 | Outpatient (REF) | payer MEDICARE, SELFPAY ==
[2023-12-22 11:48] LABS: Anion Gap 11 (12-20); Blood Urea Nitrogen 14 mg/dL (9-16); Calcium 9.2 mg/dL (8.4-10.2); Carbon Dioxide 25 mmol/L (22-29); Chloride 105 mmol/L (96-108); Estimated Glomerular Filt Rate > 60; Glucose Random 91 mg/dL (60-115); Potassium 3.9 mmol/L (3.3-5.1); Sodium 137 mmol/L (135-145)
== END 2023-12-22 07:25 | disposition home or self-care (01) ==
LOC: HO.HMGCLDS 07:24
PROVIDERS: PCP Internal Medicine; Visit Provider Internal Medicine Cardiovascular Disease
DX: R94.39 Abnormal result of other cardiovascular function study (principal); R06.00 Dyspnea, unspecified; R06.02 Shortness of breath
CPT/HCPCS: 36415; 80048

== ENCOUNTER 2024-01-01 07:17 | Emergency (ER) | payer MEDICARE, SELFPAY ==
[2024-01-01] VITALS (10 sets, daily range): BP systolic 129–162; BP diastolic 62–78; PULSE 59–75; RESP 15–18; TEMP 36.5–36.9; O2SAT 98; BMI 24.2
--- NOTE | ~2024-01-01 | CT_ITS ---
EXAMINATION: CT HEAD WITHOUT CONTRAST CLINICAL INFORMATION: Off-balance and lightheaded COMPARISON: Prior CT head dated 07/03/2022. TECHNIQUE: Contiguous axial imaging was performed from the skull base to vertex without intravenous administration of contrast. This CT examination was performed using dose optimization techniques as appropriate, variously including the following: *Automated exposure control *Adjustment of mA and/or kV according to patient size (this includes techniques or standardized protocols for targeted exams where dose is matched to indication/reason for exam; i.e. extremities or head) *Use of iterative reconstruction technique DLP: 564 mGy-cm FINDINGS: There is deep white matter gliosis observed with mild prominence to the sulci and ventricles however, no intra or extra-axial fluid collection or hemorrhage, mass, or mass effect. Calvarium is intact. CT/CT head/brain wo IV con IMPRESSION: No acute intracranial pathology.
--- NOTE | ~2024-01-01 | XR_ITS ---
EXAMINATION: XR CHEST CLINICAL INFORMATION: Lightheadedness and dizziness COMPARISON: CT chest 09/01/2023, CT abdomen pelvis 02/05/2023 TECHNIQUE: Frontal view of the chest was obtained. FINDINGS: Again seen is mild cardiac enlargement without evidence of CHF. A left chest wall dual-lead pacemaker is present. Moderate-sized hiatal hernia is again noted. The lungs are clear without infiltrates, pleural effusions or lung masses. XR/XR chest 1V IMPRESSION: No acute intrathoracic disease. Mild cardiomegaly and hiatal hernia.
--- NOTE | 2024-01-01 07:23 | ECG_ITS ---
Test Reason : PALPITATIONS Blood Pressure : / mmHG Vent. Rate : 060 BPM Atrial Rate : 060 BPM P-R Int : 246 ms QRS Dur : 132 ms QT Int : 446 ms P-R-T Axes : 000 027 022 degrees QTc Int : 446 ms Atrial-paced rhythm with prolonged AV conduction Right bundle branch block Abnormal ECG When compared with ECG of 30-AUG-2023 23:47, Electronic atrial pacemaker has replaced Sinus rhythm Referred By: Rashida Ball Electronically Signed By:NELSON CHARLES
[2024-01-01 07:35] LABS: MANUAL DIFF FLAG NO
[2024-01-01 07:41] LABS: Basophils Absolute Auto 0.1 X10*3/uL (0.0-0.2); Basophils Percent Auto 0.9 % (0-2); Eosinophils Absolute Auto 0.3 X10*3/uL (0.0-0.4); Eosinophils Percent Auto 4.7 % (0-4); Hematocrit 39.6 % (37.0-47.0); Hemoglobin 14.4 g/dl (12.0-16.0); Imm Gran Abs Auto 0.01 X10*3/uL (0.00-0.03); Imm Gran Pct Auto 0.2 % (0.0-0.4); Lymphocytes Absolute Auto 1.3 X10*3/uL (1.2-4.9); Lymphocytes Percent Auto 20.9 % (20-40); Mean Corpuscular HGB Conc 36.4 g/dl (31.0-35.0); Mean Corpuscular Hemoglobin 32.9 pg (27.0-33.0); Mean Corpuscular Volume 90.4 fL (80.0-98.0); Mean Platelet Volume 11.1 fL (9.4-12.3); Monocytes Absolute Auto 0.5 X10*3/uL (0.1-1.2); Monocytes Percent Auto 7.1 % (2-11); Neutrophils Absolute Auto 4.2 x10*3/uL (2.0-8.3); Neutrophils Percent Auto 66.2 % (45-73); Platelet Count 316 X10*3/uL (160-400); Red Blood Count 4.38 X10*6/uL (4.20-5.50); Red Cell Distribution Width 12.1 % (11.0-16.0); White Blood Count 6.4 X10*3/uL (4.8-10.8)
[2024-01-01 07:44] LABS: INTERNATIONAL NORM RATIO 1.2 (0.9-1.1); Prothrombin Time 14.3 SEC (11.1-13.3)
[2024-01-01 08:02] LABS: Troponin-I High Sensitivity 10.6 ng/L (<3.5-17.0)
--- NOTE | 2024-01-01 08:08 | ED.GENADULT ---
HPI - General Adult General Chief complaint: Headache Stated complaint: Palpitations/Headache/Nausea Time Seen by Provider: 01/01/24 07:23 Source: patient, RN notes reviewed and old records reviewed Mode of arrival: ambulatory History of Present Illness ED Provider: Rashida Ball PA-C HPI narrative: 73-year-old female with a past medical history AFib with RVR on Eliquis, sick sinus syndrome, cardiac pacemaker, HLD, abnormal stress test, s/p coronary CTA yesterday at [facility], presenting to the ED complaining of lightheadedness/dizziness with associated nausea and mild headache beginning around 11:00AM yesterday after coronary CTA. Reports symptoms began while they were driving home. States symptoms improved/resolved and then recurred today. Reports feeling off balance. Denies SOB, CP, pedal edema, abdominal pain, vomiting Related Data Home Medications ?Medication ?Instructions ?Recorded ?Confirmed ascorbate calcium (vitamin C) 500 500 mg PO DAILY 04/20/20 12/11/23 mg tablet Previous Rx's ?Medication ?Instructions ?Recorded cholecalciferol (vitamin D3) 50 50 mcg PO DAILY 90 days #90 caps 12/04/22 mcg (2,000 unit) capsule apixaban 5 mg tablet (Eliquis) 5 mg PO BID #180 tabs 10/18/23 metoprolol tartrate 25 mg tablet 25 mg PO BID #180 tabs 10/18/23 dronedarone 400 mg tablet (Multaq) 400 mg PO BID #60 tabs 12/10/23 pantoprazole 40 mg tablet,delayed 40 mg PO DAILY 90 days #90 tabs 12/11/23 release Allergies Allergy/AdvReac Type Severity Reaction Status Date / Time Sulfa (Sulfonamide Allergy Intermediate Swollen Verified 01/01/24 07:27 Antibiotics) red eyes cefuroxime AdvReac Intermediate Stomach Uncoded 01/01/24 07:27 Upset Review of Systems Review of Systems: Constitutional: No Fever, No Chills ENT/Mouth: No Ear Pain, No Nasal Congestion, No sore throat, No Rhinorrhea, No Swallowing Difficulty Cardiovascular: No Chest Pain, No SOB Respiratory: No Cough, No Sputum, No Wheezing Gastrointestinal: + Nausea, No Vomiting, No Diarrhea, No Constipation, No Abdominal pain Genitourinary: No Dysuria, No Urinary Frequency, No Hematuria, No Urinary Incontinence/retention, No Flank Pain Musculoskeletal: No joint pain, No Myalgias, No Joint Swelling Skin: No Skin Lesions, No rash Neuro: + lightheadedness/dizziness, No Weakness, No Numbness, No Paresthesias, +QUINTEROS Yes all other systems are reviewed and are negative Constitutional: Constitutional: Reports as per HPI Neurologic: Denies Abnormal speech present [facility] Past Medical History Attestation statement: The following information was validated with the patient. Source: old records reviewed Medical History GERD (gastroesophageal reflux disease) Cardiac pacemaker in situ Sick sinus syndrome Atrial fibrillation with rapid ventricular response Atrial fibrillation History of transesophageal echocardiography (ELIGIO) Left atrial dilatation Orthostatic lightheadedness Pain and swelling of left lower leg Exertional dyspnea Swelling of joint of left hand Pain in joint of left hand Overweight (BMI 25.0-29.9) Allergic rhinitis Pure hypercholesterolemia Osteoarthritis Dyslipidemia Vitamin D deficiency Age related osteoporosis Surgical History History of permanent cardiac pacemaker placement (~09/01/23) Status post cardiac catheterization History of cardiac cath Hx of cataract removal with insertion of prosthetic lens (~12/2014) Hx of section Family History Family History Mother Prediabetes Hyperlipidemia Hypertension Father No problems noted. Social History Social History Household Members: Spouse Housing: House Do you presently have visiting nurse or other home services: No Alcohol intake: current Alcohol intake frequency: does not drink Patient Tobacco Use Status: Never used Tobacco Smoked in Last 30 Days: No e-Cigarette/Vaping Use: Never Used Second Hand Smoke Exposure: Yes Use of substances other than those prescribed or required for medical reasons: No Advance Directives: Yes Advance Directives Information Provided: Yes Advance Directives on File: No service: No Current occupational status: retired Cognitive needs: No Hearing needs: Yes Vision needs: No Physical Exam ED Vital Signs: Vital Signs - 24 hr 01/01/24 07:26 01/01/24 09:24 01/01/24 09:24 Temperature 98.5 F Pulse Rate 60 60 69 Respiratory Rate 16 Blood Pressure 162/74 H 151/74 H 148/78 H Pulse Oximetry 98 Oxygen Delivery Method Room Air 01/01/24 09:25 01/01/24 11:01 01/01/24 11:02 Temperature Pulse Rate 75 61 61 Respiratory Rate Blood Pressure 129/65 160/69 H 155/66 H Pulse Oximetry Oxygen Delivery Method 01/01/24 11:03 01/01/24 12:39 01/01/24 12:45 Temperature 97.7 F Pulse Rate 62 59 60 Respiratory Rate 15 Blood Pressure 138/72 150/71 H 147/62 H Pulse Oximetry 98 Oxygen Delivery Method Room Air 01/01/24 12:46 01/01/24 12:46 Temperature Pulse Rate 63 63 Respiratory Rate Blood Pressure 146/67 H 134/62 Pulse Oximetry Oxygen Delivery Method BMI result Body Mass Index 24.2 Const General: cooperative, healthy appearing and no acute distress Orientation/consciousness: patient oriented x3 Limitations: no limitations HENMT Head: Yes normal to inspection and Yes atraumatic Ears: hearing grossly normal bilaterally General nose exam: Normal external nose present Face and sinus: Yes normal facial exam Eyes General: appearance normal, both eyes and all related structures EOM: EOMs intact bilaterally Neck Neck: Yes normal visual inspection and Yes no meningeal signs Resp Effort & Inspection: normal respiratory effort and no respiratory distress Auscultation: clear to auscultation bilaterally, no crackles and no wheezes Cardio Rate: regular rate Heart sounds: S1 normal heart sound present and S2 normal heart sound present GI Inspection: Yes normal to inspection Palpation (GI): Soft to palpation, nontender, no guarding and not rigid Skin Rashes: no rashes Wounds: no wounds Neuro General: patient oriented x3, gait normal, tone normal, moves all extremities, no meningeal signs, no focal motor deficits and CN's II-XI intact bilaterally Cranial nerves: Yes CN's II-XII intact bilaterally and Yes Bilaterally intact EOM present Cognition (Neuro): normal cognition Speech: No Abnormal speech present Gait exam (Neuro): Normal gait present Motor exam (neuro): 5/5 motor strength present throughout, Pronator motor function not present and no tremor noted Coordination: [id number] test normal Romberg Test: Negative Extrem General: Yes normal to inspection and Yes no pedal edema Course Course Course Narrative: -5839--potassium mildly elevated to 5.3 > specimen hemolyzed -initial troponin 10.6 > will obtain [address] head/brain wo IV con IMPRESSION: No acute intracranial pathology. -orthostatics positive > will give IVF and repeat > case discussed with Cardiology, Dr. Morales suspect patient is symptomatic from nitro yesterday and decreased p.o. intake. -1217--repeat troponin without rise, [place] unlikely. Patient ambulating in the ED with steady gait, denies dizziness at present. States has not eaten since last night. Given crackers/juice in the ED. XR chest 1V IMPRESSION: No acute intrathoracic disease. Mild cardiomegaly and hiatal hernia. -repeat orthostatic still slightly positive (systolic BP) > patient tolerating p.o., reports symptomatic improvement, will repeat and re-evaluate -1247--repeat orthostatics improved, patient no longer orthostatic, reports symptomatic improvement. Safe for discharge home at this time with cardiology follow-up Results discussed with patient including worrisome signs and symptoms and strict return precautions, and when to return to the emergency department. They verbalized understanding and feel safe for discharge at this time. Medications Administered Discontinued Medications Generic Name Dose Route Start Last Admin Trade Name Freq PRN Reason Stop Dose Admin Sodium Chloride 1,000 mls @ 999 mls/hr 01/01/24 09:45 01/01/24 11:04 Ns IV 01/01/24 10:45 Infused .Q1H1M MAYANK Infusion Meclizine HCl 25 mg 01/01/24 11:07 01/01/24 11:13 Meclizine Hcl 25 Mg Tablet PO 01/01/24 11:08 25 mg ONCE ONE Administration Medical Decision Making Medical Decision Making [facility] Narrative: 73-year-old female with a past medical history AFib with RVR on Eliquis, sick sinus syndrome, cardiac pacemaker, HLD, abnormal stress test, s/p coronary CTA yesterday at [facility], presenting to the ED complaining of lightheadedness/dizziness with associated nausea and mild headache beginning around 11:00AM yesterday after coronary CTA. On exam vital signs stable, NAD, nontoxic appearing, no focal neuro deficits, ambulating with steady, lungs CTA. Concern for ACS vs metabolic abnormalities. Lower suspicion for dissection. Lower suspicion for CVA/TIA or ICH with intermittent symptoms. Rule out orthostasis Plan: EKG, labs, CXR, orthostatics, consult Cardiology Please refer to course for remaining clinical decision making, interpretation of labs/imaging results, and discussions with consultants and/or family members. Differential Diagnosis Differential Diagnoses: The differential diagnosis associated with the presentation includes As above Admission/Observation Consideration of admission/observation: Escalation of care including admission/observation considered Consult Healthcare Provider Management of the patient was discussed with: Flexible Machining System Machinist (Cardiology, Dr. Morales) Lab Data MDM Lab Attestation statement: I reviewed the patient's lab results. 01/01/24 07:31 01/01/24 08:45 Labs: Lab Results 01/01/24 01/01/24 01/01/24 Range/Units 07:31 08:45 09:42 WBC 6.4 (4.8-10.8) X10*3/uL RBC 4.38 (4.20-5.50) X10*6/uL Hgb 14.4 (12.0-16.0) g/dl Hct 39.6 (37.0-47.0) % MCV 90.4 (80.0-98.0) fL MCH 32.9 (27.0-33.0) pg MCHC 36.4 H (31.0-35.0) g/dl RDW 12.1 (11.0-16.0) % Plt Count 316 (160-400) X10*3/uL MPV 11.1 (9.4-12.3) fL Immature Gran % (Auto) 0.2 (0.0-0.4) % Neut % (Auto) 66.2 (45-73) % Lymph % (Auto) 20.9 (20-40) % [place] % (Auto) 7.1 (2-11) % Eos % (Auto) 4.7 H (0-4) % Baso % (Auto) 0.9 (0-2) % Lymph # (Auto) 1.3 (1.2-4.9) X10*3/uL [place] # (Auto) 0.5 (0.1-1.2) X10*3/uL Eos # (Auto) 0.3 (0.0-0.4) X10*3/uL Baso # (Auto) 0.1 (0.0-0.2) X10*3/uL Abs Immat Gran (auto) 0.01 (0.00-0.03) X10*3/uL Absolute Neuts (auto) 4.2 (2.0-8.3) x10*3/uL Absolute Nucleated RBC 0.000 (0.0-0.012) X10*3/uL Nucleated RBC % (auto) 0.0 (0.0-0.2) /100WBC PT 14.3 H (11.1-13.3) SEC INR 1.2 H (0.9-1.1) Sodium 135 (135-145) mmol/L Potassium 5.3 H D (3.3-5.1) mmol/L Chloride 103 (96-108) mmol/L Carbon Dioxide 25 (22-29) mmol/L Anion Gap 12 (12-20) BUN 10 (9-16) mg/dL Creatinine 0.76 (0.5-1.4) mg/dL Estim Creat Clear Calc 52.4 Estimated GFR > 60 Random Glucose 103 (60-115) mg/dL Calcium 9.7 (8.4-10.2) mg/dL Magnesium 2.2 (1.6-2.6) mg/dL Total Bilirubin 0.4 (0.0-1.0) mg/dL AST 15 (5-31) U/L ALT 8 (0-31) U/L Alkaline Phosphatase 68 (39-117) U/L Troponin I High Sens 10.6 D (<3.5-17.0) ng/L B-Natriuretic Peptide 96 (<100) pg/mL Total Protein 6.9 (6.5-8.0) g/dL Albumin 4.0 (3.5-5.0) g/dL Urine Color Yellow Urine Appearance Clear Urine pH 7.0 (5.0-9.0) Ur Specific [place] 1.010 (1.005-1.025) Urine Protein Negative (Neg-Trace) mg/dL Urine Glucose (UA) Negative (Negative) mg/dL Urine Ketones Negative (Negative) mg/dL Urine Blood Negative (Negative) Urine Nitrite Negative (Negative) Ur Leukocyte Esterase Small (1+) H (Negative) Urine RBC 0-2 (0-2) /HPF Urine WBC 0-5 (0-5) /HPF Ur Squamous Epith Cells 0-2 (0-2) /HPF Urine Bacteria None Seen (None Seen) Hyaline Casts 0-2 (0-2) /LPF Influenza Type A (PCR) NEGATIVE (Negative) Influenza Type B (PCR) NEGATIVE (Negative) RSV RNA Qual (PCR) NEGATIVE (Negative) SARS-CoV-2 RNA (RT-PCR) NEGATIVE (Negative) 01/01/24 Range/Units 10:42 WBC (4.8-10.8) X10*3/uL RBC (4.20-5.50) X10*6/uL Hgb (12.0-16.0) g/dl Hct (37.0-47.0) % MCV (80.0-98.0) fL MCH (27.0-33.0) pg MCHC (31.0-35.0) g/dl RDW (11.0-16.0) % Plt Count (160-400) X10*3/uL MPV (9.4-12.3) fL Immature Gran % (Auto) (0.0-0.4) % Neut % (Auto) (45-73) % Lymph % (Auto) (20-40) % [place] % (Auto) (2-11) % Eos % (Auto) (0-4) % Baso % (Auto) (0-2) % Lymph # (Auto) (1.2-4.9) X10*3/uL [place] # (Auto) (0.1-1.2) X10*3/uL Eos # (Auto) (0.0-0.4) X10*3/uL Baso # (Auto) (0.0-0.2) X10*3/uL Abs Immat Gran (auto) (0.00-0.03) X10*3/uL Absolute Neuts (auto) (2.0-8.3) x10*3/uL Absolute Nucleated RBC (0.0-0.012) X10*3/uL Nucleated RBC % (auto) (0.0-0.2) /100WBC PT (11.1-13.3) SEC INR (0.9-1.1) Sodium (135-145) mmol/L Potassium (3.3-5.1) mmol/L Chloride (96-108) mmol/L Carbon Dioxide (22-29) mmol/L Anion Gap (12-20) BUN (9-16) mg/dL Creatinine (0.5-1.4) mg/dL Estim Creat Clear Calc Estimated GFR Random Glucose (60-115) mg/dL Calcium (8.4-10.2) mg/dL Magnesium (1.6-2.6) mg/dL Total Bilirubin (0.0-1.0) mg/dL AST (5-31) U/L ALT (0-31) U/L Alkaline Phosphatase (39-117) U/L Troponin I High Sens 6.8 (<3.5-17.0) ng/L B-Natriuretic Peptide (<100) pg/mL Total Protein (6.5-8.0) g/dL Albumin (3.5-5.0) g/dL Urine Color Urine Appearance Urine pH (5.0-9.0) Ur Specific [place] (1.005-1.025) Urine Protein (Neg-Trace) mg/dL Urine Glucose (UA) (Negative) mg/dL Urine Ketones (Negative) mg/dL Urine Blood (Negative) Urine Nitrite (Negative) Ur Leukocyte Esterase (Negative) Urine RBC (0-2) /HPF Urine WBC (0-5) /HPF Ur Squamous Epith Cells (0-2) /HPF Urine Bacteria (None Seen) Hyaline Casts (0-2) /LPF Influenza Type A (PCR) (Negative) Influenza Type B (PCR) (Negative) RSV RNA Qual (PCR) (Negative) SARS-CoV-2 RNA (RT-PCR) (Negative) Independent Interpretation I performed an independent interpretation of an: Plain X-Ray and CT Scan Radiology Impression Discussion of test interpretation with radiology: I have reviewed the radiologist's reading. Independent Historian Clinical information obtained from an independent historian. History obtained from or confirmed by: Spouse External Record Review External record reviewed: Inpatient record, Office record, Outpatient record, Prior outpatient labs, Prior outpatient radiology, Primary care record and Outside ED record Tests considered The following testing was considered but not selected: As above Chronic Conditions Patient?s care impacted by: Other (AFib with RVR, sick sinus syndrome) Discharge Plan Discharge Clinical Impression: Intermittent lightheadedness, Orthostasis Patient Disposition: Home, Self-Care Instructions: Lightheadedness (ED) Additional Instructions: Your blood work was reassuring today in the emergency department Please have close follow-up with her high lead yarder, Dr. Morales If symptoms persist or worsen, you have constant worsening lightheadedness/dizziness, develop chest pain or shortness of breath or passing out episodes return to the ED immediately Prescriptions: No Action cholecalciferol (vitamin D3) 50 mcg (2,000 unit) capsule 50 mcg PO DAILY 90 Days Qty: 90 3RF pantoprazole 40 mg tablet,delayed release (DR/EC) 40 mg PO DAILY 90 Days Qty: 90 3RF ascorbate calcium (vitamin C) 500 mg tablet 500 mg PO DAILY Eliquis 5 mg tablet 5 mg PO BID Qty: 180 3RF metoprolol tartrate 25 mg tablet 25 mg PO BID Qty: 180 3RF Multaq 400 mg tablet 400 mg PO BID Qty: 60 2RF Rx Instructions: must administer with a meal/food Referrals: [facility] [Provider Group] - 2 days Bernabe Peterson MD [Primary Care Provider] - Print Language: Bulgarian
[2024-01-01 08:17] LABS: B Type Natriuretic Peptide 96 pg/mL (<100)
[2024-01-01 09:19] LABS: Alanine Aminotransferase 8 U/L (0-31); Alkaline Phosphatase 68 U/L (39-117); Anion Gap 12 (12-20); Aspartate Amino Transferase 15 U/L (5-31); Bilirubin Total 0.4 mg/dL (0.0-1.0); Blood Urea Nitrogen 10 mg/dL (9-16); Calcium 9.7 mg/dL (8.4-10.2); Carbon Dioxide 25 mmol/L (22-29); Chloride 103 mmol/L (96-108); Creatinine Clr Calc Pharmacy 52.4; Estimated Glomerular Filt Rate > 60; Glucose Random 103 mg/dL (60-115); Magnesium 2.2 mg/dL (1.6-2.6); Potassium 5.3 mmol/L (3.3-5.1); Sodium 135 mmol/L (135-145); Total Protein 6.9 g/dL (6.5-8.0)
[2024-01-01 09:46] LABS: Influenza A PCR NEGATIVE (Negative); Influenza B PCR NEGATIVE (Negative); Resp Syncy Virus RNA Qual PCR NEGATIVE (Negative); SARS COV2 PCR INHOUSE NEGATIVE (Negative)
[2024-01-01 09:48] LABS: Appearance Urine Clear; Color Urine Yellow; Glucose Urine UA Negative (Negative); Leukocyte Esterase Urine Small (1+) (Negative); Nitrite Urine Negative (Negative); UMIC TRIGGER UACC YES; Urine Blood Negative (Negative); Urine Ketones Negative (Negative); Urine Protein Negative (Neg-Trace)
[2024-01-01] MEDS: 0.9 % Sodium Chloride 1,000 ML 999 ML IV (09:57)
[2024-01-01 10:05] LABS: Bacteria Urine None Seen (None Seen); Hyaline Casts Urine 0-2 /LPF (0-2); RBC Urine 0-2 /HPF (0-2); Squamous Epithelial Cell Urine 0-2 /HPF (0-2); UACC Culture Trigger YES; WBC Urine 0-5 /HPF (0-5)
[2024-01-01] MEDS: Meclizine HCl 25 MG TABLET PO (11:13)
[2024-01-01 11:24] LABS: Troponin-I High Sensitivity 6.8 ng/L (<3.5-17.0)
== END 2024-01-01 13:01 | disposition home or self-care (01) ==
PROVIDERS: Physician Assistant; Emergency Provider Emergency Medicine; PCP Internal Medicine
DX: R42 Dizziness and giddiness (principal); I48.20 Chronic atrial fibrillation, unspecified; E78.5 Hyperlipidemia, unspecified; R51.9 Headache, unspecified; R11.0 Nausea; I95.1 Orthostatic hypotension; Z79.01 Long term (current) use of anticoagulants; Z95.0 Presence of cardiac pacemaker; Z03.818 Encounter for observation for suspected exposure to other biological agents ruled out
CPT/HCPCS: 0241U; 36415; 70450; 71045; 80053; 81001; 83735; 83880; 84484; 85025; 85610; 87086; 93005; 96360; 99284; 99285

== ENCOUNTER → 2024-01-01 07:23 | Outpatient (BNV) | payer MEDICARE, SELFPAY | PROVIDERS: Emergency Provider Emergency Medicine; PCP Internal Medicine; Visit Provider Internal Medicine | DX: R00.2 Palpitations (principal); I45.19 Other right bundle-branch block; R94.31 Abnormal electrocardiogram [ECG] [EKG] | CPT/HCPCS: 93010 ==

== ENCOUNTER 2024-01-04 13:43 | Observation (INO) | payer MEDICARE, SELFPAY ==
[2024-01-04] VITALS (8 sets, daily range): BP systolic 126–159; BP diastolic 62–72; PULSE 60–73; RESP 14–20; TEMP 36.5–37.1; O2SAT 96–98; BMI 24.6
--- NOTE | 2024-01-04 13:51 | ECG_ITS ---
Test Reason : DIZZINESS Blood Pressure : / mmHG Vent. Rate : 060 BPM Atrial Rate : 060 BPM P-R Int : 248 ms QRS Dur : 142 ms QT Int : 440 ms P-R-T Axes : 000 017 008 degrees QTc Int : 440 ms Atrial-paced rhythm with prolonged AV conduction Right bundle branch block Abnormal ECG When compared with ECG of 01-JAN-2024 07:30, No significant change was found Referred By: Selvin Spivey Electronically Signed By:NELSON CHARLES
--- NOTE | 2024-01-04 13:53 | ED_ITS ---
HPI - General Adult General Chief complaint: Dizziness Stated complaint: Dizziness/weakness Time Seen by Provider: 01/04/24 17:37 Source: patient and family Mode of arrival: ambulatory Limitations: no limitations History of Present Illness ED Provider: DR. Worthy HPI narrative: 73-year-old female history of coronary artery disease, AFib on Eliquis, SSS, cardiac pacemaker, HLD, abnormal stress test followed by coronary artery CTA, patient's supervisor extruding department is Dr. Morales. Came in today for complaint episodes of lightheadedness and near syncopal episode. Today also felt palpitation on her left carotid area. Lightheadedness episode last for few minutes then resolved. Patient reported nonbloody watery diarrhea since yesterday, no abdominal pain, no nausea, no vomiting. Related Data Home Medications ?Medication ?Instructions ?Recorded ?Confirmed ascorbate calcium (vitamin C) 500 500 mg PO DAILY 04/20/20 12/11/23 mg tablet Previous Rx's ?Medication ?Instructions ?Recorded cholecalciferol (vitamin D3) 50 50 mcg PO DAILY 90 days #90 caps 12/04/22 mcg (2,000 unit) capsule apixaban 5 mg tablet (Eliquis) 5 mg PO BID #180 tabs 10/18/23 metoprolol tartrate 25 mg tablet 25 mg PO BID #180 tabs 10/18/23 dronedarone 400 mg tablet (Multaq) 400 mg PO BID #60 tabs 12/10/23 pantoprazole 40 mg tablet,delayed 40 mg PO DAILY 90 days #90 tabs 12/11/23 release Allergies Allergy/AdvReac Type Severity Reaction Status Date / Time Sulfa (Sulfonamide Allergy Intermediate Swollen Verified 01/04/24 13:52 Antibiotics) red eyes cefuroxime AdvReac Intermediate Stomach Uncoded 01/01/24 07:27 Upset Review of Systems 2 Review of Systems: All other systems are reviewed and are negative Constitutional: Reports as per HPI and Reports no additional constitutional complaints Eyes: Reports as per HPI and Reports no additional eye complaints Reports system reviewed and no additional complaints, except as documented Cardiovascular: Reports as per HPI and Reports no additional cardiovascular complaints Respiratory: Reports as per HPI and Reports no additional respiratory complaints Gastrointestinal: Reports as per HPI and Reports no additional gastrointestinal complaints Genitourinary: Reports no additional female genitourinary complaints Musculoskeletal: Reports no additional musculoskeletal complaints Skin/Breast: Reports system reviewed and no additional complaints, except as docu Psychiatric: Reports no additional psychiatric complaints Endocrine: Reports no additional endocrine complaints Hematologic/Lymphatic: Reports no additional hematologic/lymphatic complaints Allergic/Immunologic: Reports no additional allergic/immunologic complaints Reports system reviewed and no additional complaints, except as documented and Reports Abnormal speech present [facility] Past Medical History Medical History GERD (gastroesophageal reflux disease) Cardiac pacemaker in situ Sick sinus syndrome Atrial fibrillation with rapid ventricular response Atrial fibrillation History of transesophageal echocardiography (ELIGIO) Left atrial dilatation Orthostatic lightheadedness Pain and swelling of left lower leg Exertional dyspnea Swelling of joint of left hand Pain in joint of left hand Overweight (BMI 25.0-29.9) Allergic rhinitis Pure hypercholesterolemia Osteoarthritis Dyslipidemia Vitamin D deficiency Age related osteoporosis Surgical History History of permanent cardiac pacemaker placement (~09/01/23) Status post cardiac catheterization History of cardiac cath Hx of cataract removal with insertion of prosthetic lens (~12/2014) Hx of section Family History Family History Mother Prediabetes Hyperlipidemia Hypertension Father No problems noted. Social History Social History Household Members: Spouse Housing: House Do you presently have visiting nurse or other home services: No Alcohol intake: current Alcohol intake frequency: does not drink Patient Tobacco Use Status: Never used Tobacco Smoked in Last 30 Days: No e-Cigarette/Vaping Use: Never Used Second Hand Smoke Exposure: Yes Advance Directives: Yes Advance Directives Information Provided: Yes Advance Directives on File: No Do you have a plan to hurt others: No Plan service: No Current occupational status: retired Cognitive needs: No Hearing needs: Yes Vision needs: No Physical Exam ED Vital Signs: Vital Signs - 24 hr 01/04/24 13:49 01/04/24 16:00 01/04/24 16:12 Temperature 98.4 F 97.8 F 97.7 F Pulse Rate 60 60 60 Respiratory Rate 18 15 14 Blood Pressure 159/69 H 146/64 H Pulse Oximetry 97 97 98 Oxygen Delivery Method Room Air Room Air Room Air BMI result Body Mass Index 24.6 Vital signs have been reviewed and appear to be correct. Blood pressure elevated. Heart rate normal. Respiratory rate normal. Temperature normal. Oxygen saturation normal. Appearance: Alert. Oriented X3. No acute distress. Head: Normal external exam. Normocephalic. Atraumatic. No Magana signs noted. No raccoon eyes noted Eyes: PERRLA. EOMI. Conjunctiva and sclera normal. Eyelids normal. ENT: TM's Normal. Pharynx normal. Uvula midline. Moist mucous membranes. No trismus noted. No drooling noted. No muffled voice noted. Neck: Normal inspection. Neck supple. FROM. No adenopathy. Thyroid Normal. No meningeal signs. No neck mass noted. CVS: Normal heart rate and rhythm. Heart sound normal. No murmurs noted. Pulses normal throughout. Respiratory: No respiratory distress. Painless inspiration. Breath sounds normal. No wheezes/rales/rhonchi noted. Chest nontender. No accessory muscle usage noted or decreased air movement noted. Abdomen: Soft and nontender. Bowel sounds normal in all 4 quadrants. No distention noted. No organomegaly noted. No visible injury noted. Back: No CVA tenderness. Full range of motion noted. Skin: Skin warm and dry. Normal skin color. Normal skin turgor. No rashes/lesions/lacerations noted. Extremities: No lower extremity edema. Extremities exhibit normal range of motion. Extremities nontender. Neuro: Oriented X 3. Cranial nerve exam: II-XII are grossly intact No motor deficit. No sensory deficit. Reflexes normal. Course Course Course Narrative: This is an RME done by LYNN Spivey: Additional HPI, ROS, PE not included below will be deferred to primary provider. 73 yo female with pmh GERD, pacemaker placement, sick sinus syndrome, PAC's, left atrial dilation, dyslipidemia, osteoporosis presenting with weakness and pulsating mass on left side of neck. Appearance: Alert.? Oriented X3.? No acute cardiopulmonary distress distress.? Head: Normocephalic, atraumatic, no step-offs or deformities Neck: Normal inspection.? Neck supple.?Unable to visualize pulsatile mass. CVS: Pulses normal.? Respiratory: No respiratory distress.? Skin: ? Normal skin color. Extremities: 5/5 strength to bilateral upper and lower extremities Neuro: Oriented X 3.? No motor deficit.? No sensory deficit. Reevaluation(s) Reevaluation #1: Near syncopal episodes that is frequent in the last week. Will admit the patient for further cardiac monitoring. Time: 17:51 Medical Decision Making Differential Diagnosis Differential Diagnoses: The differential diagnosis associated with the presentation includes (Syncope, near syncopal, electrolyte derangement, dehydration, severe anemia, CAD, ACS, pacemaker malfunction.) Admission/Observation Consideration of admission/observation: Escalation of care including admission/observation considered Consult Healthcare Provider Management of the patient was discussed with: Hospitalist (Dr. Cortez) Lab Data MDM Lab Attestation statement: I reviewed the patient's lab results. 01/04/24 14:12 01/04/24 14:12 Labs: Lab Results 01/04/24 01/04/24 Range/Units 14:11 14:12 WBC 5.7 (4.8-10.8) X10*3/uL RBC 4.05 L (4.20-5.50) X10*6/uL Hgb 13.2 (12.0-16.0) g/dl Hct 35.7 L (37.0-47.0) % MCV 88.1 (80.0-98.0) fL MCH 32.6 (27.0-33.0) pg MCHC 37.0 H (31.0-35.0) g/dl RDW 11.7 (11.0-16.0) % Plt Count 297 (160-400) X10*3/uL MPV 10.8 (9.4-12.3) fL Immature Gran % (Auto) 0.4 (0.0-0.4) % Neut % (Auto) 58.1 (45-73) % Lymph % (Auto) 25.0 (20-40) % Nobles % (Auto) 9.6 (2-11) % Eos % (Auto) 6.0 H (0-4) % Baso % (Auto) 0.9 (0-2) % Lymph # (Auto) 1.4 (1.2-4.9) X10*3/uL Nobles # (Auto) 0.6 (0.1-1.2) X10*3/uL Eos # (Auto) 0.3 (0.0-0.4) X10*3/uL Baso # (Auto) 0.1 (0.0-0.2) X10*3/uL Abs Immat Gran (auto) 0.02 (0.00-0.03) X10*3/uL Absolute Neuts (auto) 3.3 (2.0-8.3) x10*3/uL Absolute Nucleated RBC 0.000 (0.0-0.012) X10*3/uL Nucleated RBC % (auto) 0.0 (0.0-0.2) /100WBC Sodium 129 L (135-145) mmol/L Potassium 4.0 D (3.3-5.1) mmol/L Chloride 100 (96-108) mmol/L Carbon Dioxide 22 (22-29) mmol/L Anion Gap 11 L (12-20) BUN 9 (9-16) mg/dL Creatinine 0.71 (0.5-1.4) mg/dL Estim Creat Clear Calc 56.4 Estimated GFR > 60 Random Glucose 120 H (60-115) mg/dL Calcium 8.7 D (8.4-10.2) mg/dL Total Bilirubin 0.4 (0.0-1.0) mg/dL AST 17 (5-31) U/L ALT 10 (0-31) U/L Alkaline Phosphatase 62 (39-117) U/L Troponin I High Sens 5.0 (<3.5-17.0) ng/L B-Natriuretic Peptide 85 (<100) pg/mL Total Protein 6.9 (6.5-8.0) g/dL Albumin 4.0 (3.5-5.0) g/dL Independent Interpretation I performed an independent interpretation of an: EKG (Atrial paced at 60 beats per minute, RBBB, nonspecific T-wave inversion, no ST-T changes.) and CT Scan (Head:) Radiology Impression Discussion of test interpretation with radiology: I have reviewed the radiologist's reading. Discharge Plan Discharge Clinical Impression: Near syncope Patient Disposition: Admitted As Inpatient Print Language: Wolof
[2024-01-04 14:17] LABS: MANUAL DIFF FLAG NO
[2024-01-04 14:20] LABS: Basophils Absolute Auto 0.1 X10*3/uL (0.0-0.2); Basophils Percent Auto 0.9 % (0-2); Eosinophils Absolute Auto 0.3 X10*3/uL (0.0-0.4); Hematocrit 35.7 % (37.0-47.0); Hemoglobin 13.2 g/dl (12.0-16.0); Imm Gran Abs Auto 0.02 X10*3/uL (0.00-0.03); Imm Gran Pct Auto 0.4 % (0.0-0.4); Lymphocytes Absolute Auto 1.4 X10*3/uL (1.2-4.9); Mean Corpuscular Hemoglobin 32.6 pg (27.0-33.0); Mean Corpuscular Volume 88.1 fL (80.0-98.0); Mean Platelet Volume 10.8 fL (9.4-12.3); Monocytes Absolute Auto 0.6 X10*3/uL (0.1-1.2); Monocytes Percent Auto 9.6 % (2-11); Neutrophils Absolute Auto 3.3 x10*3/uL (2.0-8.3); Neutrophils Percent Auto 58.1 % (45-73); Platelet Count 297 X10*3/uL (160-400); Red Blood Count 4.05 X10*6/uL (4.20-5.50); Red Cell Distribution Width 11.7 % (11.0-16.0); White Blood Count 5.7 X10*3/uL (4.8-10.8)
[2024-01-04 14:34] LABS: Alanine Aminotransferase 10 U/L (0-31); Alkaline Phosphatase 62 U/L (39-117); Anion Gap 11 (12-20); Aspartate Amino Transferase 17 U/L (5-31); Bilirubin Total 0.4 mg/dL (0.0-1.0); Blood Urea Nitrogen 9 mg/dL (9-16); Calcium 8.7 mg/dL (8.4-10.2); Carbon Dioxide 22 mmol/L (22-29); Chloride 100 mmol/L (96-108); Creatinine Clr Calc Pharmacy 56.4; Estimated Glomerular Filt Rate > 60; Glucose Random 120 mg/dL (60-115); Sodium 129 mmol/L (135-145); Total Protein 6.9 g/dL (6.5-8.0)
[2024-01-04 14:37] LABS: B Type Natriuretic Peptide 85 pg/mL (<100)
[2024-01-04] MEDS: 0.9 % Sodium Chloride 1,000 ML 999 ML IV (18:50)
--- NOTE | 2024-01-04 19:23 | PHA.MEDREC ---
Pharmacy Consult ? Medication Reconciliation Pharmacy has completed the medication reconciliation. Confirmed medications with patient and at bedside. Patient confirmed with me that she usually takes Vitamin C 500mg 1 daily and Vitamin D3 50mcg once daily and due to her not feeling well the last few days and coming in the patient decided to not take her vitamins for the time being once feeling better she will go back to them regularly.
--- NOTE | 2024-01-04 19:27 | MHC.EDTECH ---
Patient walked to the bathroom
--- NOTE | 2024-01-04 19:50 | P.HPHOSP_ITS ---
History of Present Illness Date of Service: 01/04/24 Attending physician on admission: Shabana Cornejo Chief Complaint: Lightheadedness, dizziness, nausea Pt is a 73-year-old female with a PMH significant for?sick sinus syndrome with pacemaker in place and paroxysmal AFib on Eliquis who presents to the ED for evaluation of presyncope. Patient's PMH primarily cardiac in nature, follows with Dr. Morales. Recently had abnormal nuclear stress test and was changed from flecainide to Multaq 400 mg b.i.d. on 12/10/2023. Completed her coronary CTA at [place] on Sunday. Was driving home with her when she began to feel dizzy, lightheadedness, sick to her stomach, and like she was going to pass out. Ethan better when she got home and ate some food, though still called Cardiology office who told her to drink plenty of fluids and come to the ED if symptoms returned. On Sunday patient again felt nauseous, sick to her stomach, lightheaded and dizzy, and came to the ED for further evaluation where workup was grossly negative. Reports felt relatively well Sunday and , but this morning symptoms returned. Patient also noticed in the bathroom mirror that it appeared like her left carotid was ?bulging like a croaking bullfrog. Also reports intermittent loose stools, but denies liquid diarrhea. No vomiting. Reports occasional shortness of breath, especially with going upstairs, and intermittent chest tightness?, but denies chest pressure or pain. No fever, chills. Denies abdominal pain. No recent illnesses. Reports has been eating and drinking normally. In the ED pt was hypertensive up to 159/69, otherwise had stable vital signs that were WNL. Labs were significant for sodium of 129, otherwise grossly unremarkable. No leukocytosis. Stable H& H. random glucose 120. Renal function baseline. Hepatic function baseline. CT on 01/01/24 nrgative for acute intracranial pathology. CXR on 01/01/2024 showed no acute intrathoracic disease, but showed mild cardiomegaly. EKG demonstrated atrial paced rhythm with prolonged AV conduction and RBBB, but no evidence of significant ST elevations or depressions, similar to previous EKGs. Pt was treated with 1 L IVF. Pt will be admitted to the hospital under observation for further treatment and evaluation of presyncope. Review of Systems 2 Review of Systems: Lightheadedness, dizziness Nausea, no vomiting Occasional loose stools Intermittent chest tightness Occasional SOB, especially going upstairs Denies chest pain/pressure No palpitations Denies lower leg edema No fever, chills [facility] Medical History GERD (gastroesophageal reflux disease) Cardiac pacemaker in situ Sick sinus syndrome Atrial fibrillation with rapid ventricular response Atrial fibrillation History of transesophageal echocardiography (ELIGIO) Left atrial dilatation Orthostatic lightheadedness Pain and swelling of left lower leg Exertional dyspnea Swelling of joint of left hand Pain in joint of left hand Overweight (BMI 25.0-29.9) Allergic rhinitis Pure hypercholesterolemia Osteoarthritis Dyslipidemia Vitamin D deficiency Age related osteoporosis Family History Mother Prediabetes Hyperlipidemia Hypertension Father No problems noted. Surgical History History of permanent cardiac pacemaker placement (~09/01/23) Status post cardiac catheterization History of cardiac cath Hx of cataract removal with insertion of prosthetic lens (~12/2014) Hx of section Social History Household Members: Spouse Housing: House Do you presently have visiting nurse or other home services: No Alcohol intake: current Alcohol intake frequency: does not drink Patient Tobacco Use Status: Never used Tobacco Smoked in Last 30 Days: No e-Cigarette/Vaping Use: Never Used Second Hand Smoke Exposure: Yes Advance Directives: Yes Advance Directives Information Provided: Yes Advance Directives on File: No Do you have a plan to hurt others: No Plan service: No Current occupational status: retired Cognitive needs: No Hearing needs: Yes Vision needs: No Meds Allergies Allergy/AdvReac Type Severity Reaction Status Date / Time Sulfa (Sulfonamide Allergy Intermediate Swollen Verified 01/04/24 13:52 Antibiotics) red eyes cefuroxime AdvReac Intermediate Stomach Uncoded 01/01/24 07:27 Upset Home Medications ?Medication ?Instructions ?Recorded ?Confirmed ?Last Taken ?Type ascorbate calcium (vitamin C) 500 500 mg PO DAILY 04/20/20 01/04/24 08/30/23 History mg tablet Physical Exam 2 Vital Signs and Narrative: Vital Signs: Last Vital Signs Temp 98.3 F 01/04/24 19:18 Pulse 60 01/04/24 19:18 Resp 17 01/04/24 19:18 BP 159/67 H 01/04/24 19:18 Pulse Ox 98 01/04/24 19:18 O2 Del Method Room Air 01/04/24 19:18 BMI result Body Mass Index 24.6 Constitutional: Alert, in no acute distress. Mental Status: Oriented to person, place and time. Eyes: Pupils are equal, round, and reactive to light. Ear, Nose, and Throat: Oropharynx clear, mucous membranes moist. Ears and nose without deformities. Trachea midline. Respiratory: Clear to auscultation bilaterally. No wheezing, rales, or rhonchi. Cardiovascular: S1, S2 regular. No murmurs, rubs, or gallops. Gastrointestinal: Abdomen soft, non-tender, non-distended. Normal bowel sounds. Neurologic: Cranial nerves II-XII are grossly intact bilaterally. No focal neurological deficits. Moves all extremities spontaneously. Skin: Warm, dry. Extremities: No edema. Psychiatric: Normal mood and affect. Results Labs 01/04/24 14:12 01/04/24 14:12 Labs: Laboratory Results - last 24 hr 01/04/24 01/04/24 14:11 14:12 MCV 88.1 MCH 32.6 MCHC 37.0 H RDW 11.7 Plt Count 297 MPV 10.8 Immature Gran % (Auto) 0.4 Neut % (Auto) 58.1 Lymph % (Auto) 25.0 Coffey % (Auto) 9.6 Eos % (Auto) 6.0 H Baso % (Auto) 0.9 Lymph # (Auto) 1.4 Coffey # (Auto) 0.6 Eos # (Auto) 0.3 Baso # (Auto) 0.1 Abs Immat Gran (auto) 0.02 Absolute Neuts (auto) 3.3 Absolute Nucleated RBC 0.000 Nucleated RBC % (auto) 0.0 Anion Gap 11 L Estim Creat Clear Calc 56.4 Estimated GFR > 60 Random Glucose 120 H Calcium 8.7 D Total Bilirubin 0.4 AST 17 ALT 10 Alkaline Phosphatase 62 Troponin I High Sens 5.0 B-Natriuretic Peptide 85 Total Protein 6.9 Albumin 4.0 Assessment and Plan (1) Near syncope: Status: Acute (2) Hyponatremia: Status: Acute Plan Pt is a 73-year-old female with a PMH significant for?sick sinus syndrome with pacemaker in place and paroxysmal AFib on Eliquis who presents to the ED for evaluation of presyncope. Pt was treated with 1 L IVF. Pt will be admitted to the hospital under observation for further treatment and evaluation of presyncope. Presyncope Patient with lightheadedness, dizziness, nausea Etiology unclear: Patient with significant cardiac history, recent coronary CTA, orthostatics positive Patient received IVF in the ED Will repeat orthostatics in the morning Cardiology consult, followed by Dr. Morales Will defer any additional testing or imaging pending Cardiology input Monitor on telemetry Hyponatremia Patient's sodium 129 at time of presentation Patient received IVF in the ED Follow BNP Question of CAD Patient with recent abnormal nuclear stress test Completed coronary CTA on 12/31/2023, results currently not accessible Paroxysmal AFib Continue metoprolol, Multaq, Eliquis Full Code Attending:? DVT Prophylaxis: Lovenox Patient will be admitted to the hospital under observation for treatment and further evaluation of presyncope. Patient will require close cardiac monitoring and specialist consultation with Cardiology. Quality Stroke Does the patient have a stroke diagnosis?: No VTE Prior VTE?: No VTE Risk Level:: Medical - moderate - high VTE Device Contraindication: Treatment Not Indicated VTE Drug Contraindication: N/A - Med Ordered
--- NOTE | 2024-01-04 20:27 | PC.NURSE ---
This RN assumed pt care @ 1900. Pt with hospitalist. Pt ca&0x4, no signs of distress. Pt requested and given food and drink, ok'd by hospitalist. Plan of care ongoing.
--- NOTE | 2024-01-04 20:55 | PC.NURSE ---
Pt ambulates with a steady gait to the restroom.
[2024-01-04] MEDS: Apixaban 5 MG TABLET PO (22:10)
[2024-01-04] MEDS: Dronedarone HCl 400 MG TABLET PO (22:10)
[2024-01-04] MEDS: Metoprolol Tartrate 25 MG TABLET PO (22:10)
[2024-01-05 04:00] VITALS: BP 129/72; PULSE 60; RESP 20; TEMP 36.6; O2SAT 96
[2024-01-05 06:52] LABS: Hematocrit 34.8 % (37.0-47.0); Hemoglobin 12.7 g/dl (12.0-16.0); Mean Corpuscular HGB Conc 36.5 g/dl (31.0-35.0); Mean Corpuscular Hemoglobin 32.1 pg (27.0-33.0); Mean Corpuscular Volume 87.9 fL (80.0-98.0); Mean Platelet Volume 11.2 fL (9.4-12.3); Platelet Count 286 X10*3/uL (160-400); Red Blood Count 3.96 X10*6/uL (4.20-5.50); Red Cell Distribution Width 11.8 % (11.0-16.0); White Blood Count 5.5 X10*3/uL (4.8-10.8)
[2024-01-05 06:54] LABS: Anion Gap 11 (12-20); Blood Urea Nitrogen 8 mg/dL (9-16); Calcium 8.9 mg/dL (8.4-10.2); Carbon Dioxide 24 mmol/L (22-29); Chloride 105 mmol/L (96-108); Creatinine Clr Calc Pharmacy 58.1; Estimated Glomerular Filt Rate > 60; Glucose Random 92 mg/dL (60-115); Potassium 4.5 mmol/L (3.3-5.1); Sodium 135 mmol/L (135-145)
[2024-01-05 07:58] VITALS: BP 149/72; PULSE 60; RESP 20; TEMP 36.4; O2SAT 96
[2024-01-05 07:59] VITALS: BP 142/69; BP 149/72; PULSE 60; PULSE 61
[2024-01-05 08:00] VITALS: BP 157/75; PULSE 62
[2024-01-05] MEDS: Metoprolol Tartrate 25 MG TABLET PO (08:18)
[2024-01-05] MEDS: Apixaban 5 MG TABLET PO (08:19)
[2024-01-05] MEDS: Dronedarone HCl 400 MG TABLET PO (08:19)
[2024-01-05] MEDS: Cholecalciferol (Vitamin D3) 25 MCG TABLET 50 MCG PO (08:19)
[2024-01-05] MEDS: 0.9 % Sodium Chloride Flush 3 ML SYRINGE IVFLUSH (08:21)
--- NOTE | 2024-01-05 10:22 | P.CONCA_ITS ---
History of Present Illness History of Present Illness Date of Service: 01/05/24 Chief complaint: Presyncope Narrative: This is a cardiology consultation regarding various symptoms like lightheadedness some nausea. Patient is known to me. She has a history of permanent pacemaker placement few months back for sick sinus syndrome. She is paroxysmal atrial fibrillation. Currently on Multaq. She underwent a coronary CTA on Sunday and it seems that while driving back she started feeling dizzy and nauseous. Thought she was going to pass out. Unclear if she had some reaction to contrast unknown. After that, she has been having intermittent episodes where she feels as though she is unsteady, nauseous, lightheaded extra. Pounding in the neck area and she thinks her neck vessels are bulging out. I am not entirely clear how much of it is all anxiety. She is also worried about the results of the CT scan as it was abnormal and she has awaiting the appointment discussed with cardiology. Currently, she states she is okay but intermittently gets the same symptoms. No angina. On telemetry, her rhythm is completely normal. Review of Systems 2 Review of Systems: Yes all other systems are reviewed and are negative Constitutional: Constitutional: Reports as per HPI and Reports no additional constitutional complaints Eyes: Eyes: Reports as per HPI and Denies no additional eye complaints ENT: Denies system reviewed and no additional complaints, except as documented and Reports as per HPI Cardiovascular: Cardiovascular: Reports as per HPI, Reports no additional cardiovascular complaints, Denies acrocyanosis, Denies cool extremities, Denies chest pain, Denies leg edema, Denies lightheadedness, Denies palpitations and Denies dyspnea Respiratory: Respiratory: Reports as per HPI, Denies no additional respiratory complaints and Denies dyspnea Gastrointestinal: Gastrointestinal: Reports as per HPI and Denies no additional gastrointestinal complaints Genitourinary: Genitourinary: Reports as per HPI Musculoskeletal: Musculoskeletal: Reports no additional musculoskeletal complaints and Reports as per HPI Integumentary/Breasts: Skin/Breast: Reports system reviewed and no additional complaints, except as docu Neurologic: Reports system reviewed and no additional complaints, except as documented and Reports as per HPI Psychiatric: Psychiatric: Reports no additional psychiatric complaints and Reports as per HPI Endocrine: Endocrine: Reports no additional endocrine complaints, Reports as per HPI and Denies palpitations Hematologic/Lymphatic: Hematologic/Lymphatic: Reports no additional hematologic/lymphatic complaints and Reports as per HPI Allergic/Immunologic: Allergic/Immunologic: Reports no additional allergic/immunologic complaints and Reports as per HPI [facility] Past Medical History Medical History (Updated 01/05/24 @ 10:25 by Errol Nolan MD) Dizziness GERD (gastroesophageal reflux disease) Cardiac pacemaker in situ Sick sinus syndrome Atrial fibrillation with rapid ventricular response Atrial fibrillation History of transesophageal echocardiography (ELIGIO) Left atrial dilatation Orthostatic lightheadedness Pain and swelling of left lower leg Exertional dyspnea Swelling of joint of left hand Pain in joint of left hand Overweight (BMI 25.0-29.9) Allergic rhinitis Pure hypercholesterolemia Osteoarthritis Dyslipidemia Vitamin D deficiency Age related osteoporosis Family History Family History Mother Prediabetes Hyperlipidemia Hypertension Father No problems noted. Surgical History Surgical History History of permanent cardiac pacemaker placement (~09/01/23) Status post cardiac catheterization History of cardiac cath Hx of cataract removal with insertion of prosthetic lens (~12/2014) Hx of section Social History Social History Household Members: Spouse Housing: House Do you presently have visiting nurse or other home services: No Alcohol intake: current Alcohol intake frequency: does not drink Patient Tobacco Use Status: Never used Tobacco e-Cigarette/Vaping Use: Never Used Second Hand Smoke Exposure: Yes service: No Current occupational status: retired Cognitive needs: No Hearing needs: Yes Vision needs: No Meds Allergies Allergy/AdvReac Type Severity Reaction Status Date / Time Sulfa (Sulfonamide Allergy Intermediate Swollen Verified 01/04/24 13:52 Antibiotics) red eyes cefuroxime AdvReac Intermediate Stomach Uncoded 01/01/24 07:27 Upset Active Medications: Current Medications Acetaminophen (Acetaminophen 325 Mg Tablet) 650 mg PO Q6H PRN PRN Reason: Pain, Mild (Pain Scale 1-3), fever or headache Apixaban (Apixaban 5 Mg Tablet) 5 mg PO BID [facility] Last Admin: 01/05/24 08:19 Dose: 5 mg Ascorbic Acid (Ascorbic Acid 500 Mg Tablet) 500 mg PO DAILY [facility] Last Admin: 01/05/24 08:20 Dose: Not Given Calcium Carbonate (Calcium Carbonate 750 Mg Tab.Chew) 750 mg PO Q4H PRN PRN Reason: Heartburn Dronedarone (Dronedarone Hcl 400 Mg Tablet) 400 mg PO BID [facility] Last Admin: 01/05/24 08:19 Dose: 400 mg Magnesium Hydroxide (Milk Of Magnesia 30 Ml Oral.Susp) 30 ml PO DAILY PRN PRN Reason: Constipation Melatonin (Melatonin 3 Mg Tablet) 6 mg PO BEDTIME PRN PRN Reason: Insomnia Metoprolol Tartrate (Metoprolol Tartrate 25 Mg Tablet) 25 mg PO BID [facility]; Protocol Last Admin: 01/05/24 08:18 Dose: 25 mg Ondansetron HCl (Ondansetron Hcl 4 Mg/2 Ml Vial) 4 mg IVPUSH Q8H PRN PRN Reason: Nausea and Vomiting Sodium Chloride (0.9 % Sodium Chloride Flush 3 Ml Syringe) 3 ml IVFLUSH QSHIFT [facility] Last Admin: 01/05/24 08:21 Dose: 3 ml Vitamin D (Cholecalciferol (Vitamin D3) 25 Mcg Tablet) 50 mcg PO DAILY [facility] Last Admin: 01/05/24 08:19 Dose: 50 mcg Home Medications ?Medication ?Instructions ?Recorded ?Confirmed ?Last Taken ?Type ascorbate calcium (vitamin C) 500 500 mg PO DAILY 04/20/20 01/04/24 08/30/23 History mg tablet Physical Exam 2 Vital Signs: Vital Signs: Last Vital Signs Temp 97.5 F 01/05/24 07:58 Pulse 62 01/05/24 08:00 Resp 20 01/05/24 07:58 BP 157/75 H 01/05/24 08:00 Pulse Ox 96 01/05/24 07:58 O2 Del Method Room Air 01/05/24 07:58 BMI result Body Mass Index 24.6 Const: General: comfortable and no acute distress O rientation/consciousness: patient oriented x3 HEENT: Other: Unremarkable Head: Yes normal to inspection Neck: Neck: Yes normal visual inspection Chest: Chest palpation & inspection: normal inspection of the chest Resp: Auscultation: clear to auscultation bilaterally Cardio: Palpation: normal PMI Heart sounds: S1 normal heart sound present, S2 normal heart sound present, no gallops, no murmurs and no rubs GI: Palpation (GI): Soft to palpation Back/Spine/Pelvis: Other: unremarkable Skin: General skin exam: no rashes or lesions noted Neuro: General: patient oriented x3 Extrem: General: Yes normal to inspection Psych: Mental Status: mental status grossly normal Objective Labs and Meds 01/05/24 06:12 01/05/24 06:12 Lab results: Laboratory Results - last 24 hr 01/04/24 01/04/24 01/05/24 14:11 14:12 06:12 WBC 5.7 5.5 RBC 4.05 L 3.96 L Hgb 13.2 12.7 Hct 35.7 L 34.8 L MCV 88.1 87.9 MCH 32.6 32.1 MCHC 37.0 H 36.5 H RDW 11.7 11.8 Plt Count 297 286 MPV 10.8 11.2 Immature Gran % (Auto) 0.4 Neut % (Auto) 58.1 Lymph % (Auto) 25.0 [place] % (Auto) 9.6 Eos % (Auto) 6.0 H Baso % (Auto) 0.9 Lymph # (Auto) 1.4 [place] # (Auto) 0.6 Eos # (Auto) 0.3 Baso # (Auto) 0.1 Abs Immat Gran (auto) 0.02 Absolute Neuts (auto) 3.3 Absolute Nucleated RBC 0.000 0.000 Nucleated RBC % (auto) 0.0 0.0 Sodium 129 L 135 Potassium 4.0 D 4.5 Chloride 100 105 Carbon Dioxide 22 24 Anion Gap 11 L 11 L BUN 9 8 L Creatinine 0.71 0.69 Estim Creat Clear Calc 56.4 58.1 Estimated GFR > 60 > 60 Random Glucose 120 H 92 Calcium 8.7 D 8.9 Total Bilirubin 0.4 AST 17 ALT 10 Alkaline Phosphatase 62 Troponin I High Sens 5.0 B-Natriuretic Peptide 85 Total Protein 6.9 Albumin 4.0 ECG Interpretation: EKG with atrial paced rhythm at 60/Min; right bundle-branch block pattern. Telemetry shows atrial pacing. Assessment and Plan (1) Nausea: Status: Acute (2) Dizziness: Status: Acute (3) Cardiac pacemaker in situ: Status: Acute (4) Atherosclerotic cardiovascular disease: Status: Acute Plan Cardiac studies reviewed. Baseline EKG as was telemetry just shows atrial pacing but nothing abnormal otherwise. Troponin levels are within normal limits multiple times. Cardiac BNP is also within normal range. 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 Proximal to midportion with mild stenosis. Circumflex with moderate stenosis. Proximal obtuse marginal with moderate to severe stenosis. Total calcium score 563. Large hiatal hernia with a portion of the proximal stomach. Overall, various symptoms like nausea, feeling lightheaded but without any clear-cut abnormalities. Unclear if there is any delayed reaction to contrast and also there is significant superimposed anxiety. We discussed about the findings as above. She would need a diagnostic catheterization as an outpatient which will be arranged. With regard to the symptoms she is describing currently, no specific management for that and hopefully with time it should improve. Blood pressure is slightly high but again she is quite anxious. Also, she will need statins which can be started after the nausea resolved completely. Discussed with at length. Reassurance given. Follow-up in clinic. Procedures Date of Service Date of Service: 01/05/24
--- NOTE | 2024-01-05 11:41 | MHC.CM.PN ---
Wanda 01/05/24, Pt. lives with , no home health services or DME, has transport home, DCP: home, self care.
[2024-01-05 11:43] VITALS: BP 122/64; PULSE 60; RESP 18; TEMP 36.7; O2SAT 97
--- NOTE | 2024-01-05 13:15 | PM.DS ---
DS: Providers Provider Date of Service: 01/05/24 Date of admission: 01/04/24 20:05 Primary care physician: Bernabe Peterson MD Consults: 01/04/24 20:32 Consult to Cardiology Routine Consulting Provider: [facility] [place] Reason for consultation: Presyncopal episodes, hx of SSS DS: Diagnosis Discharge Diagnosis (1) Nausea: Status: Acute (2) Dizziness: Status: Acute (3) Cardiac pacemaker in situ: Status: Acute (4) Atherosclerotic cardiovascular disease: Status: Acute DS: Summary Hospital Course Hospital Course: admission hpi Attending physician on admission: Shabana Cornejo Chief Complaint: Lightheadedness, dizziness, nausea Pt is a 73-year-old female with a PMH significant for?sick sinus syndrome with pacemaker in place and paroxysmal AFib on Eliquis who presents to the ED for evaluation of presyncope. Patient's PMH primarily cardiac in nature, follows with Dr. Morales. Recently had abnormal nuclear stress test and was changed from flecainide to Multaq 400 mg b.i.d. on 12/10/2023. Completed her coronary CTA at [place] on Sunday. Was driving home with her when she began to feel dizzy, lightheadedness, sick to her stomach, and like she was going to pass out. [place] better when she got home and ate some food, though still called Cardiology office who told her to drink plenty of fluids and come to the ED if symptoms returned. On Sunday patient again felt nauseous, sick to her stomach, lightheaded and dizzy, and came to the ED for further evaluation where workup was grossly negative. Reports felt relatively well Sunday and , but this morning symptoms returned. Patient also noticed in the bathroom mirror that it appeared like her left carotid was ?bulging like a croaking bullfrog. Also reports intermittent loose stools, but denies liquid diarrhea. No vomiting. Reports occasional shortness of breath, especially with going upstairs, and intermittent chest tightness?, but denies chest pressure or pain. No fever, chills. Denies abdominal pain. No recent illnesses. Reports has been eating and drinking normally. In the ED pt was hypertensive up to 159/69, otherwise had stable vital signs that were WNL. Labs were significant for sodium of 129, otherwise grossly unremarkable. No leukocytosis. Stable H& H. random glucose 120. Renal function baseline. Hepatic function baseline. CT on 01/01/24 nrgative for acute intracranial pathology. CXR on 01/01/2024 showed no acute intrathoracic disease, but showed mild cardiomegaly. EKG demonstrated atrial paced rhythm with prolonged AV conduction and RBBB, but no evidence of significant ST elevations or depressions, similar to previous EKGs. Pt was treated with 1 L IVF. Pt will be admitted to the hospital under observation for further treatment and evaluation of presyncope. Hospital Course: The patient was observed on cardiac telemetry overnight and did not experience any arrhythmias. Hyponatremia resolved with intravenous fluids (IVF). She was evaluated by cardiology the next day, with no specific findings to explain her symptoms, other than a possible delayed effect from recent IV contrast. She has not had any further symptoms, is tolerating a regular diet, and is ambulating in the [place] without issues. Consequently, she will be discharged home. Crestor is prescribed for hyperlipidemia (HLD) in light of coronary calcification observed on a recent coronary CT scan. Plan discussed with patient and and was comfortable going home Time Attestation Discharge Coordination Time (in mins): 35 Quality: Safe Use of Opioids Does Pt have an Active Cancer Diagnosis on the Problem List?: No Quality: Stroke Does the patient have a stroke diagnosis?: No Physical Exam Vital Signs: Vital Signs: Last Vital Signs Temp 98.1 F 01/05/24 11:43 Pulse 60 01/05/24 11:43 Resp 18 01/05/24 11:43 BP 122/64 01/05/24 11:43 Pulse Ox 97 01/05/24 11:43 O2 Del Method Room Air 01/05/24 11:43 BMI result Body Mass Index 24.6 General: AO X 3, no acute distress Resp: CTA bilateral CVS: S1,S2,RRR GI: +BS, NT, no distention Skin: No rash Neuro: motor grossly intact Psych: appropriate affect DS: Data Data Completed and Pending Labs on day of discharge: Laboratory Results - last 24 hr 01/04/24 01/04/24 01/05/24 14:11 14:12 06:12 WBC 5.7 5.5 RBC 4.05 L 3.96 L Hgb 13.2 12.7 Hct 35.7 L 34.8 L MCV 88.1 87.9 MCH 32.6 32.1 MCHC 37.0 H 36.5 H RDW 11.7 11.8 Plt Count 297 286 MPV 10.8 11.2 Immature Gran % (Auto) 0.4 Neut % (Auto) 58.1 Lymph % (Auto) 25.0 [place] % (Auto) 9.6 Eos % (Auto) 6.0 H Baso % (Auto) 0.9 Lymph # (Auto) 1.4 [place] # (Auto) 0.6 Eos # (Auto) 0.3 Baso # (Auto) 0.1 Abs Immat Gran (auto) 0.02 Absolute Neuts (auto) 3.3 Absolute Nucleated RBC 0.000 0.000 Nucleated RBC % (auto) 0.0 0.0 Sodium 129 L 135 Potassium 4.0 D 4.5 Chloride 100 105 Carbon Dioxide 22 24 Anion Gap 11 L 11 L BUN 9 8 L Creatinine 0.71 0.69 Estim Creat Clear Calc 56.4 58.1 Estimated GFR > 60 > 60 Random Glucose 120 H 92 Calcium 8.7 D 8.9 Total Bilirubin 0.4 AST 17 ALT 10 Alkaline Phosphatase 62 Troponin I High Sens 5.0 B-Natriuretic Peptide 85 Total Protein 6.9 Albumin 4.0 Discharge Plan Discharge Anticipated Discharge Date/Time: 01/05/24 13:08 Patient Disposition: Home, Self-Care Discharge Diagnosis: Dizzness, nausea, and hyponatremia Referrals: Bernabe Peterson MD [Primary Care Provider] - 1 Week Discharge Medications: New rosuvastatin [Crestor] 40 mg tablet 40 mg PO DAILY Qty: 90 0RF Continued cholecalciferol (vitamin D3) 50 mcg (2,000 unit) capsule 50 mcg PO DAILY 90 Days Qty: 90 3RF ascorbate calcium (vitamin C) 500 mg tablet 500 mg PO DAILY Eliquis 5 mg tablet 5 mg PO BID Qty: 180 3RF metoprolol tartrate 25 mg tablet 25 mg PO BID Qty: 180 3RF Multaq 400 mg tablet 400 mg PO BID Qty: 60 2RF Rx Instructions: must administer with a meal/food Discharge Orders: Discharge Order (Routine); Ordered 01/05/24 Ordered By: Luís Baker Diet: Advance to usual diet Activity on Discharge: As tolerated Stand Alone Forms: Patient Portal Discharge page Print Language: [place] Care Plan Goals: recovery from dizziness, nausea and near syncope Health Concerns: nausea, dizziness, near syncope, hyponatremia now resolved Plan of Treatment: Reassured, rest and symptoms continue you may come back for further evaluation and testing otherwise, follow up with your doctor in a week, call for appointment take crestor for your cholesterol and follow up with your heart doctor about coronary CT results Assessment: see above
== END 2024-01-05 13:50 | disposition home or self-care (01) ==
LOC: HO.ED 17:56 → HO.EDOVER 20:15 → HO.IMC 20:24
PROVIDERS: Physician Assistant; Admitting Provider Student in an Organized Health Care Education/Training Program; Emergency Provider Emergency Medicine; PCP Internal Medicine; Visit Provider Internal Medicine
DX: R42 Dizziness and giddiness (principal); E87.1 Hypo-osmolality and hyponatremia; R11.0 Nausea; I25.10 Atherosclerotic heart disease of native coronary artery without angina pectoris; I48.0 Paroxysmal atrial fibrillation; Z95.0 Presence of cardiac pacemaker; I49.5 Sick sinus syndrome; R55 Syncope and collapse; K21.9 Gastro-esophageal reflux disease without esophagitis; Z79.01 Long term (current) use of anticoagulants
CPT/HCPCS: 36415; 80048; 80053; 83880; 84484; 85025; 85027; 93005; 96360; 97161; 99222; 99285

== ENCOUNTER → 2024-01-04 20:05 | Outpatient (BNV) | payer MEDICARE, SELFPAY | PROVIDERS: Admitting Provider Student in an Organized Health Care Education/Training Program; Emergency Provider Emergency Medicine; PCP Internal Medicine; Visit Provider Student in an Organized Health Care Education/Training Program | DX: I25.10 Atherosclerotic heart disease of native coronary artery without angina pectoris (principal); R11.0 Nausea; R42 Dizziness and giddiness; Z95.0 Presence of cardiac pacemaker | CPT/HCPCS: 99222; 99239 ==

== ENCOUNTER → 2024-01-04 20:05 | Outpatient (BNV) | payer MEDICARE, SELFPAY | PROVIDERS: Admitting Provider Student in an Organized Health Care Education/Training Program; Emergency Provider Emergency Medicine; PCP Internal Medicine; Visit Provider Internal Medicine | DX: R11.0 Nausea (principal); R42 Dizziness and giddiness; Z95.0 Presence of cardiac pacemaker; I25.10 Atherosclerotic heart disease of native coronary artery without angina pectoris; I45.10 Unspecified right bundle-branch block; R94.31 Abnormal electrocardiogram [ECG] [EKG] | CPT/HCPCS: 93010; 99223 ==

== ENCOUNTER 2024-01-08 13:54 | Outpatient (AMB) | payer MEDICARE, SELFPAY ==
[2024-01-08 14:00] VITALS: BP 116/82; PULSE 59; O2SAT 98; BMI 24.4
--- NOTE | 2024-01-08 14:00 | A.OFFPC_ITS ---
Vital Signs 01/08/24 14:00 Height 5 ft 1 in Weight 129 lb BMI 24.4 BP 116/82 Blood Pressure Location Lt brachial Position Sitting Pulse 59 Pulse Source Pulse Oximeter Pulse Oximetry (%) 98 Oxygen Delivery Method Room Air Intake Visit Reasons: Lightheadedness, dizziness, nausea Intake Note: Patient is here for hospital discharge follow up. Patient was discharged from [facility] on 01/05/24 Admission Liaison Required: No Allergies Sulfa (Sulfonamide Antibiotics) Allergy (Intermediate, Verified 01/08/24 14:57) Swollen red eyes cefuroxime Adverse Reaction (Intermediate, Uncoded 01/08/24 14:57) Stomach Upset Medication List - Last Reconciled 01/08/24 by Bernabe Peterson MD apixaban (Eliquis) 5 mg PO BID ascorbate calcium (vitamin C) 500 mg PO DAILY cholecalciferol (vitamin D3) 50 mcg PO DAILY 90 days dronedarone (Multaq) 400 mg PO BID lorazepam 0.5 mg PO TID PRN 10 days metoprolol tartrate 25 mg PO BID rosuvastatin (Crestor) 40 mg PO DAILY sertraline 25 mg PO DAILY 30 days Tobacco use date assessed: 12/11/23 Fall risk assessment: No Falls in past year Last assessed Fall Risk: 01/08/24 Dental Screening Dental Screen Date: 09/05/23 HPI Lightheadedness, dizziness, nausea HPI Details Patient comes in today for her [facility] follow up visit She was seen at the ER a few days ago for evaluation of what appears to be some presyncopal symptoms States that she was heading home (her was driving) from [place] last week on 12/31/2023 where she had her coronary CTA done, when she suddenly started experience increased dizziness and lightheadedness, followed by what she describes as a wave of intense nausea and flushing going up into her neck and face - recalls that she almost passed out then from her symptoms States that her symptoms gradually subsided when she arrived home and had something to eat She contacted cardiology regarding her symptoms and was advised to drink plenty of fluids and to go to the ER for further evaluation if her symptoms recurred Her symptoms flared up again the next day and she went to the ER where she was advised that all of her tests came back normal and she was eventually discharged home Symptoms recurred again after 3 days and this time she noticed while looking into the mirror that her left carotid appeared to be bulging and she went back to the ER for further evaluation She was noted to have a high blood pressure at the time in the ER (BP was at 159/69) Labs, head CT and chest x-rays were all normal; EKG showed atrial paced rhythm with prolonged AV conduction and RBBB but no acute changes She was subsequently admitted for observation and her stay was uneventful Rosuvastatin was added to her medication regimen in light of her recent abnormal coronary CTA and she is currently awaiting scheduling for a dianostic coronary angiogram States that she's has not had any significant flare up of the above symptoms since she got home but remains wary that her symptoms can occur again at any time without warning She presently denies any headaches Denies any chest pains, no SOB No nausea/vomiting, no abdominal pain No change in bowel habits noted PFSH Medical History Dizziness GERD (gastroesophageal reflux disease) Cardiac pacemaker in situ Sick sinus syndrome Atrial fibrillation with rapid ventricular response Atrial fibrillation History of transesophageal echocardiography (ELIGIO) Left atrial dilatation Orthostatic lightheadedness Pain and swelling of left lower leg Exertional dyspnea Swelling of joint of left hand Pain in joint of left hand Overweight (BMI 25.0-29.9) Allergic rhinitis Pure hypercholesterolemia Osteoarthritis Dyslipidemia Vitamin D deficiency Age related osteoporosis Surgical History History of permanent cardiac pacemaker placement (~09/01/23) Status post cardiac catheterization History of cardiac cath Hx of cataract removal with insertion of prosthetic lens (~12/2014) Hx of section Family History Mother Prediabetes Hyperlipidemia Hypertension Father No problems noted. Social History Household Members: Spouse Housing: House Do you presently have visiting nurse or other home services: No Alcohol intake: current Alcohol intake frequency: does not drink Patient Tobacco Use Status: Never used Tobacco e-Cigarette/Vaping Use: Never Used Second Hand Smoke Exposure: Yes service: No Current occupational status: retired Cognitive needs: No Hearing needs: Yes Vision needs: No Questionnaire Thrive Questionnaire Date Thrive assessed: 01/05/24 AUDIT C Alcohol Use Questionnaire (AUDIT-C) 1. How often do you have a drink containing alcohol?: Monthly or less 2. How many drinks containing alcohol do you have on a typical day when you are drinking?: 1 or 2 3. How often do you have six or more drinks on one occasion?: Never Total Score: 1 Score Reviewed/Action Taken: Yes KEYON-7 AMB Questionnaire KEYON-7 Date KEYON - 7 assessed: 09/05/23 Source: Developed by Drs. Al Amato, Nathaly Allison, Yvan Wu and colleagues, with an educational midny from [email or web address]. Review of Systems Const Denies chills, Denies fatigue, Denies fever(s) and Denies headache(s) Eyes Denies loss of vision ENT Reports as per HPI, Denies dysphagia, Reports dizziness (on and off - see HPI), Denies otalgia, Denies headache(s), Denies neck pain, Denies odynophagia, Denies sinus pain and Denies sore throat Card Denies chest pain, Denies palpitations and Denies dyspnea Resp Denies cough, Denies dyspnea and Denies wheezing GI Denies abdominal pain (more of epigastric discomfort, on and off - see HPI), Denies constipation, Denies dysphagia, Denies heartburn, Denies diarrhea, Reports nausea (on and off - see HPI), Denies odynophagia and Denies vomiting Denies hematuria, Denies difficulty voiding, Denies nocturia, Denies dysuria and Denies urinary urgency Musc Denies back pain, Denies arthralgias and Denies neck pain Skin/Breast Denies rash Neuro Reports as per HPI, Reports dizziness (on and off - see HPI), Denies headache(s), Denies loss of vision and Denies Sensory deficit (Neuro) Psych Reports anxiety Endo Denies fatigue and Denies palpitations Aller/Immun Denies wheezing Physical exam (Primary Care) Vital Signs: Last Vital Signs Pulse 59 01/08/24 14:00 BP 116/82 01/08/24 14:00 Pulse Ox 98 01/08/24 14:00 Oxygen Delivery Method Room Air 01/08/24 14:00 BMI result Body Mass Index 24.4 Tobacco/Smoking Status: Tobacco use Status Tobacco use date assessed 12/11/23 01/08/24 14:02 Patient Tobacco Use Status Never used Tobacco 01/08/24 14:02 e-Cigarette/Vaping Use Never Used 01/08/24 14:02 Thrive Assessment: Date of Thrive Assessment Date Thrive assessed 01/05/24 01/08/24 14:02 Const General: no acute distress and alert HENMT Ears: TM's normal bilaterally and EAC's normal Throat: Yes posterior oropharynx normal and Yes tonsils normal (no TP congestion) Neck Neck: Yes no lymphadenopathy and Yes supple Thyroid: Thyroid normal Resp Auscultation: clear to auscultation bilaterally, no rales and no wheezes Cardio Rate: regular rate Rhythm: regular rhythm Heart sounds: no murmurs GI Palpation (GI): Soft to palpation and nontender Auscultation: normal bowel sounds General: Yes no CVA tenderness Back/Spine/Pelvis Back: no CVA tenderness Thoracic/Lumbar Spine: No lumbar spinal tenderness Skin Rashes: no rashes Neuro Sensory Exam: No Sensory deficit (Neuro) Extrem General: Yes no clubbing, cyanosis or edema Assessment and Plan Assessment & Plan (1) Pre-syncope: Code(s): R55 - Syncope and collapse Plan: Have discussed with patient that her recent recurrent symptoms as described above may be due to anxiety, especially since all of her work ups done so far (labs, chest x-rays, EKG, head CT) have been negative or unrevealing Cardiology considered the possibility of her symptoms being a delayed reaction to the IV contrast she received during her coronary CTA but this was done over a week ago now and makes it a less likely possibility at this point Will go ahead and start her on a trial of low dose Sertraline 25 mg QD - have advised patient that this may take some time (at least 2 weeks) before she can feel that it is helping so in the meantime, will provide her as well with some Lorazepam 0.5 mg that she can take on an as-needed basis Have also advised her to call back at the end of the month if she feels that the medication is still not helping enough and we can consider increasing her up to 50 mg daily dose then (2) Abnormal pharmacologic myocardial perfusion study: Code(s): R94.30 - Abnormal result of cardiovascular function study, unspecified Plan: Her myocardial perfusion study done on 12/03/2023 revealed (+) equivocal findings for anterior and mild intensity apical ischemia in the LAD territory, with (+) transient ischemic dilatation noted. Gated LVEF is at 63% She eventually has a coronary CTA done last week on 12/31/2023 in [place] and was advised that her test was abnormal and she is now awaiting scheduling for a diagnostic coronary angiogram and potential stenting and she is hoping to get this done soon (3) Sick sinus syndrome: Code(s): I49.5 - Sick sinus syndrome Plan: Patient developed AF with RVR back at the end of July 2023 and presented to the ER with symptoms of persistent palpitations She underwent ELIGIO with cardioversion successfully and has been predominantly bradycardic since She was scheduled for outpatient pacemaker insertion in early August 2023 but ended up going back to the ER that weekend for 2 separate episodes of chest pressure, nausea and diaphoresis She was admitted and ended up getting a dual chamber pacemaker insertion ahead of time on 09/01/2023 States that she has been feeling okay since with no recurrence of her chest pains/pressure or her previous symptoms of palpitations since Continue Eliquis 5 mg BID for thromboembolism prophylaxis (CHADS VAsc score of 2) and Metoprolol 50 mg BID Her Fleicanide 50 mg Q 12 hours was discontinued due to her recent abnormal stress test and she was started instead on Multaq 400 mg BID Follow up with cardiology as scheduled (4) Dyslipidemia: Code(s): E78.5 - Hyperlipidemia, unspecified Plan: Patient is reminded that her LDL cholesterol level is still slightly above normal on her most recent labs although they have improved slightly from previo us Reinforced low cholesterol diet She was recently started on Rosuvastatin 40 mg QD by cardiology Will recheck her labs and fasting lipids as scheduled in June 2024 for follow up (5) GERD (gastroesophageal reflux disease): Code(s): K21.9 - Gastro-esophageal reflux disease without esophagitis Qualifiers: Esophagitis presence: without esophagitis Qualified Code(s): K21.9 - Gastro-esophageal reflux disease without esophagitis Plan: Upper GI series done back in 2020 revealed (+) acid reflux as well as a hiatal hernia Reinforced dietary restrictions in GERD She was started on Pantoprazole 40 mg QD last month but she recently stopped taking this when she developed diarrhea Will look into this again once her current cardiac issues are resolved (6) Age related osteoporosis: Code(s): M81.0 - Age-related osteoporosis without current pathological fracture Qualifiers: Presence of current pathological fracture: without current pathological fracture Qualified Code(s): M81.0 - Age-related osteoporosis without current pathological fracture Plan: Her most recent BMD done on 02/07/2022 showed no significant change in BMD from her previous one done in 2019; lowest T-score was at -3.0 in the lumbar spine Patient continues to decline pharmacotherapy -? feels that she is healthy and active and prefers not to take any additional medications at this time Was referred to and seen by endocrinology over the past few months and advised that they do not need to see her regularly if she does not wish to pursue pharmacotherapy Continue Vitamin D and calcium supplements daily and patient is again reminded to exercise regularly and to practice fall precautions at all times (7) Vitamin D deficiency: Code(s): E55.9 - Vitamin D deficiency, unspecified Plan: Continue Vitamin D3 2000 units QD (8) Allergic rhinitis: Comment: Very mild, seasonal, does not require to use any medication. Code(s): J30.9 - Allergic rhinitis, unspecified Qualifiers: Allergic rhinitis trigger: unspecified Allergic rhinitis seasonality: unspecified Qualified Code(s): J30.9 - Allergic rhinitis, unspecified Plan: Continue Fluticasone nasal spray and/or OTC antihistamines like Loratadine 10 mg QD PRN for symptomatic relief Plan Follow up as scheduled in June 2024 or earlier for any acute issues Medications: New sertraline 25 mg PO DAILY 30 days 30 tabs 3RF lorazepam 0.5 mg PO TID 10 days PRN 30 tabs 0RF anxiety Coding Level of Care Code Est Pt Level 4 (11794) Diagnoses Pre-syncope R55 Abnormal pharmacologic myocardial perfusion study R94.30 Sick sinus syndrome I49.5 Dyslipidemia E78.5 Gastroesophageal reflux disease without esophagitis K21.9 Esophagitis presence: without esophagitis Age-related osteoporosis without current pathological fracture M81.0 Presence of current pathological fracture: without current pathological fracture Vitamin D deficiency E55.9 Allergic rhinitis, unspecified seasonality, unspecified trigger J30.9 Allergic rhinitis trigger: unspecified Allergic rhinitis seasonality: unspecified
== END 2024-01-08 14:57 | disposition home or self-care (01) ==
PROVIDERS: PCP Internal Medicine; Visit Provider Internal Medicine
DX: R55 Syncope and collapse (principal); R94.30 Abnormal result of cardiovascular function study, unspecified; I49.5 Sick sinus syndrome; E78.5 Hyperlipidemia, unspecified; K21.9 Gastro-esophageal reflux disease without esophagitis; M81.0 Age-related osteoporosis without current pathological fracture; E55.9 Vitamin D deficiency, unspecified; J30.9 Allergic rhinitis, unspecified
CPT/HCPCS: 99214

== ENCOUNTER → 2024-01-08 23:59 | Outpatient (BNV) | payer MEDICARE, SELFPAY ==
--- NOTE | 2024-01-14 16:58 | A.OFFVIS_ITS ---
Intake Visit Reasons: Remote device check- [facility] Allergies Sulfa (Sulfonamide Antibiotics) Allergy (Intermediate, Verified 01/08/24 14:57) Swollen red eyes cefuroxime Adverse Reaction (Intermediate, Uncoded 01/08/24 14:57) Stomach Upset PFSH Medical History Dizziness GERD (gastroesophageal reflux disease) Cardiac pacemaker in situ Sick sinus syndrome Atrial fibrillation with rapid ventricular response Atrial fibrillation History of transesophageal echocardiography (ELIGIO) Left atrial dilatation Orthostatic lightheadedness Pain and swelling of left lower leg Exertional dyspnea Swelling of joint of left hand Pain in joint of left hand Overweight (BMI 25.0-29.9) Allergic rhinitis Pure hypercholesterolemia Osteoarthritis Dyslipidemia Vitamin D deficiency Age related osteoporosis Surgical History History of permanent cardiac pacemaker placement (~09/01/23) Status post cardiac catheterization History of cardiac cath Hx of cataract removal with insertion of prosthetic lens (~12/2014) Hx of section Family History Mother Prediabetes Hyperlipidemia Hypertension Father No problems noted. Social History Household Members: Spouse Housing: House Do you presently have visiting nurse or other home services: No Alcohol intake: current Alcohol intake frequency: does not drink Patient Tobacco Use Status: Never used Tobacco e-Cigarette/Vaping Use: Never Used Second Hand Smoke Exposure: Yes service: No Current occupational status: retired Cognitive needs: No Hearing needs: Yes Vision needs: No Office Procedures Cardiac Device Check Cardiac Device Check Details: remote pacemaker report generated 01/08/2024. Pacemaker function is adequate [id number] Cardiac Device Interrogation, pacemaker Procedure code (CPT) selection complete Assessment & Plan Assessment & Plan (1) History of permanent cardiac pacemaker placement: Onset Date: ~09/01/23 Comment: [facility] [place] Code(s): Z95.0 - Presence of cardiac pacemaker Category: Medical Plan: see above Coding Level of Care Code Procedure Only Diagnoses History of permanent cardiac pacemaker placement Z95.0 CPT Codes Cardiac Device Check - Cardiac Device 12: [id number] Cardiac Device Interrogation, pacemaker ([id number])
== END ==
PROVIDERS: PCP Internal Medicine; Visit Provider Internal Medicine Cardiovascular Disease
DX: Z45.018 Encounter for adjustment and management of other part of cardiac pacemaker (principal)
CPT/HCPCS: 93294

== ENCOUNTER 2024-01-10 10:33 | Outpatient (AMB) | payer MEDICARE, SELFPAY ==
--- NOTE | 2024-01-10 10:49 | A.OFFVIS_ITS ---
Vital Signs 01/10/24 10:50 Height 5 ft 1 in Weight 127 lb 13.89 oz BMI 24.2 BP 120/74 Blood Pressure Location Lt brachial Position Sitting Intake Visit Reasons: follow-up CTA Intake Note: Follow-up CTA still little foggy and lightheaded Recycler Required: No Diplomatic Interpreter: Diplomatic Interpreter Present Accompanied by: Spouse Allergies Sulfa (Sulfonamide Antibiotics) Allergy (Intermediate, Verified 01/08/24 14:57) Swollen red eyes cefuroxime Adverse Reaction (Intermediate, Uncoded 01/08/24 14:57) Stomach Upset Medication List - Last Reconciled 01/10/24 by Tomer Morales MD apixaban (Eliquis) 5 mg PO BID cholecalciferol (vitamin D3) 50 mcg PO DAILY 90 days dronedarone (Multaq) 400 mg PO BID lorazepam 0.5 mg PO TID PRN 10 days metoprolol tartrate 25 mg PO BID rosuvastatin (Crestor) 40 mg PO DAILY sertraline 25 mg PO DAILY 30 days HPI Comments Details: Yaritza comes for follow-up after recent coronary CTA at [facility]. Following receiving the CTA she developed symptoms of lightheadedness and near- syncope and had come to the emergency room and was admitted due to episode of lightheadedness. He is very worried about her coronary CTA findings which shows two-vessel disease. Although she says she has no exertional chest pain. However her main symptom currently is lightheadedness especially when she gilles over and gets up or when she suddenly changes position. I did discuss with her that none of these symptoms are related to myocardial ischemia and more likely suggest balance issues and/or orthostatic lightheadedness. She however is very worried about her coronary artery disease. She now says that she does have exertional shortness of breath although she has not been exercising much. She has not had many issues with atrial fibrillation. She is taking all her medications including Multaq and oral anticoagulation therapy. [facility] Medical History Dizziness GERD (gastroesophageal reflux disease) Cardiac pacemaker in situ Sick sinus syndrome Atrial fibrillation with rapid ventricular response Atrial fibrillation History of transesophageal echocardiography (ELIGIO) Left atrial dilatation Orthostatic lightheadedness Pain and swelling of left lower leg Exertional dyspnea Swelling of joint of left hand Pain in joint of left hand Overweight (BMI 25.0-29.9) Allergic rhinitis Pure hypercholesterolemia Osteoarthritis Dyslipidemia Vitamin D deficiency Age related osteoporosis Surgical History History of permanent cardiac pacemaker placement (~09/01/23) Status post cardiac catheterization History of cardiac cath Hx of cataract removal with insertion of prosthetic lens (~12/2014) Hx of section Family History Mother Prediabetes Hyperlipidemia Hypertension Father No problems noted. Social History Household Members: Spouse Housing: House Do you presently have visiting nurse or other home services: No Alcohol intake: current Alcohol intake frequency: does not drink Patient Tobacco Use Status: Never used Tobacco e-Cigarette/Vaping Use: Never Used Second Hand Smoke Exposure: Yes service: No Current occupational status: retired Cognitive needs: No Hearing needs: Yes Vision needs: No Review of Systems Const Denies chills, Denies fatigue, Denies fever(s), Denies frequent falls, Denies weakness, Denies weight gain and Denies weight loss ENT Denies dizziness Card Denies chest pain, Denies leg edema, Denies lightheadedness, Denies palpitations, Denies dyspnea, Denies dyspnea on exertion, Denies orthopnea and Denies other (loss of consciousness) Resp Denies cough, Denies dyspnea and Denies dyspnea on exertion GI Denies hematochezia and Denies change in stool character Musc Denies abnormal gait, Denies muscle weakness, Denies numbness, Denies radiating pain into limb and Denies tingling Neuro Denies abnormal gait, Denies dizziness, Denies frequent falls, Denies numbness, Denies tingling and Denies weakness Endo Denies fatigue and Denies palpitations Physical Exam Vital Signs: Last Vital Signs BP 120/74 01/10/24 10:50 BMI result Body Mass Index 24.2 Const General: cooperative, healthy appearing, comfortable, no acute distress and anxious Orientation/consciousness: patient oriented x3 Neck Neck: Yes normal visual inspection and Yes no JVD Chest Other: Pacer site left upper chest - dressing removed, incision well approximated, no bruising, swelling or drainage Resp Effort & Inspection: normal respiratory effort Auscultation: clear to auscultation bilaterally, no crackles, no rales, no rhonchi and no wheezes Cardio Jugular venous distension: no JVD Rate: regular rate Rhythm: regular rhythm Heart sounds: S1 normal heart sound present, S2 normal heart sound present, no murmurs and no rubs Neuro General: patient oriented x3 Extrem General: Yes normal to inspection, No no pedal edema and No calf tenderness Psych Appearance: grossly normal Mental Status: mental status grossly normal Speech and movement: Normal speech and movement present Office Procedures Cardiac Device Check Cardiac Device Check Details: Dual-chamber device programmed in DDDR at 60 beats per minute. No episodes of atrial fibrillation noted. Atrial ventricular sensing is adequate. Atrial and ventricular pacing thresholds adequate. Pacing lead impedance is stable. Battery life is excellent [id number] Cardiac Device Check, pacemaker dual lead Procedure code (CPT) selection complete Assessment & Plan Assessment & Plan (1) Atherosclerotic cardiovascular disease: Code(s): I25.10 - Atherosclerotic heart disease of [place] coronary artery without angina pectoris Category: Medical Plan: CAD, two-vessel disease with moderate to severe plaque stenosis. Currently she has not having any significant symptoms that are concerning for myocardial ischemia. Symptoms of dizziness appear to be either inner ear related and/or orthostasis although she has not orthostatic today. Discussed with her that these symptoms are not related to coronary artery disease. She has not having any clear exertional symptoms at this point time. I encouraged her to increase her activity level at this point time. I would not add any medical therapy. If she has any limiting episodes of exertional chest discomfort and/or shortness of breath will pursue invasive cardiac catheterization. Meanwhile continue metoprolol therapy. Continue high-intensity statin therapy with target goal LDL less than 60 mg/dL. Continue full oral anticoagulation Eliquis and would avoid antiplatelet agent. We discussed in details about stable nature of coronary artery disease and that intervention is not necessary the path to treatment in absence of symptoms as per major trials. (2) History of permanent cardiac pacemaker placement: Onset Date: ~09/01/23 Comment: [facility] Code(s): Z95.0 - Presence of cardiac pacemaker Category: Surgical Plan: Cardiac pacemaker in-situ, working well. Will follow up in 3 months time. (3) Paroxysmal atrial fibrillation: Code(s): I48.0 - Paroxysmal atrial fibrillation Category: Medical Plan: Paroxysmal atrial fibrillation, currently stable without any recurrence on Multaq therapy. Continue the same. Importance of continued antiarrhythmic drug therapy was discussed. Continue full oral anticoagulation, currently on Eliquis 5 mg b.i.d.. Semi annual renal function test should be pursued. I think she would benefit from antianxiety treatment. Will follow up in the clinic in 3 months time, sooner p.r.n.. Thank you for allowing me to partake in the care Coding Level of Care Code Est Pt Level 4 (07423) Diagnoses Atherosclerotic cardiovascular disease I25.10 History of permanent cardiac pacemaker placement Z95.0 Paroxysmal atrial fibrillation I48.0 CPT Codes Cardiac Device Check - Cardiac Device 2: [id number] Cardiac Device Check, pacemaker dual lead ([id number])
[2024-01-10 10:50] VITALS: BP 120/74; BMI 24.2
== END 2024-01-10 11:36 | disposition home or self-care (01) ==
PROVIDERS: PCP Internal Medicine; Visit Provider Internal Medicine Cardiovascular Disease
DX: I25.10 Atherosclerotic heart disease of native coronary artery without angina pectoris (principal); I48.0 Paroxysmal atrial fibrillation; Z95.0 Presence of cardiac pacemaker
CPT/HCPCS: 93280; 99214

== ENCOUNTER → 2024-01-10 10:33 | Outpatient (BNVA) | payer MEDICARE, SELFPAY | PROVIDERS: PCP Internal Medicine; Visit Provider Internal Medicine Cardiovascular Disease | DX: Z45.018 Encounter for adjustment and management of other part of cardiac pacemaker (principal); I25.10 Atherosclerotic heart disease of native coronary artery without angina pectoris; I48.0 Paroxysmal atrial fibrillation | CPT/HCPCS: 93280; 99212 ==

== ENCOUNTER 2024-02-20 09:16 | Outpatient (AMB) | payer MEDICARE, SELFPAY ==
[2024-02-20 09:32] VITALS: BP 108/58; PULSE 60; BMI 24.2
--- NOTE | 2024-02-20 09:32 | A.OFFVIS_ITS ---
Vital Signs 02/20/24 09:32 Height 5 ft 1 in Weight 127 lb 13.89 oz BMI 24.2 BP 108/58 L Blood Pressure Location Lt brachial Position Sitting Pulse 60 Pulse Source Monitor Intake Visit Reasons: 6wk follow up Allergies Sulfa (Sulfonamide Antibiotics) Allergy (Intermediate, Verified 01/08/24 14:57) Swollen red eyes cefuroxime Adverse Reaction (Intermediate, Uncoded 01/08/24 14:57) Stomach Upset Medication List - Last Reconciled 02/20/24 by Tomer Morales MD apixaban (Eliquis) 5 mg PO BID cholecalciferol (vitamin D3) 50 mcg PO DAILY 90 days dronedarone (Multaq) 400 mg PO BID metoprolol tartrate 25 mg PO BID rosuvastatin (Crestor) 40 mg PO DAILY HPI Comments Details: Yaritza comes for follow-up. She has episodes of dizziness. She is noted to have low blood pressure in the 90s at some time. She has not adequate oral intake of water. She has not had any prolonged palpitation irregular heartbeat. Continues to have symptoms of fatigue. Also currently having issue with heel spur restrict activity. Denies any exertional chest pain. No orthopnea, PND, bilateral leg edema. Has any abdominal distension. No lightheadedness, syncope. No bleeding issues or neurologic events. [facility] Medical History (Updated 02/20/24 @ 10:03 by Tomer Morales MD) Cardiac pacemaker in situ Visit for wound check Dizziness GERD (gastroesophageal reflux disease) Sick sinus syndrome Atrial fibrillation with rapid ventricular response Atrial fibrillation History of transesophageal echocardiography (ELIGIO) Left atrial dilatation Orthostatic lightheadedness Pain and swelling of left lower leg Exertional dyspnea Swelling of joint of left hand Pain in joint of left hand Overweight (BMI 25.0-29.9) Allergic rhinitis Pure hypercholesterolemia Osteoarthritis Dyslipidemia Vitamin D deficiency Age related osteoporosis Surgical History (Updated 02/20/24 @ 10:03 by Tomer Morales MD) History of permanent cardiac pacemaker placement (~09/01/23) Status post cardiac catheterization History of cardiac cath Hx of cataract removal with insertion of prosthetic lens (~12/2014) Hx of section Family History Mother Prediabetes Hyperlipidemia Hypertension Father No problems noted. Social History Household Members: Spouse Housing: House Do you presently have visiting nurse or other home services: No Alcohol intake: current Alcohol intake frequency: does not drink Patient Tobacco Use Status: Never used Tobacco e-Cigarette/Vaping Use: Never Used Second Hand Smoke Exposure: Yes service: No Current occupational status: retired Cognitive needs: No Hearing needs: Yes Vision needs: No Review of Systems Const Denies weakness ENT Denies dizziness Card Denies chest pain, Denies chest pain with activity, Denies syncope, Denies rapid heart rate, Denies pedal edema, Denies edema, Denies leg edema, Denies lightheadedness, Denies palpitations, Denies dyspnea, Denies dyspnea on exertion and Denies orthopnea Resp Denies cough, Denies dyspnea and Denies dyspnea on exertion GI Denies hematochezia and Denies change in stool character Musc Denies abnormal gait, Denies muscle cramps, Denies muscle weakness, Denies numbness, Denies radiating pain into limb and Denies tingling Neuro Denies abnormal gait, Denies dizziness, Denies syncope, Denies numbness, Denies tingling and Denies weakness Endo Denies palpitations Physical Exam Vital Signs: Last Vital Signs Pulse 60 02/20/24 09:32 BP 108/58 L 02/20/24 09:32 BMI result Body Mass Index 24.2 Const General: cooperative, healthy appearing, comfortable, no acute distress and anxious Orientation/consciousness: patient oriented x3 Neck Neck: Yes normal visual inspection and Yes no JVD Chest Other: Pacer site left upper chest - dressing removed, incision well approximated, no bruising, swelling or drainage Resp Effort & Inspection: normal respiratory effort Auscultation: clear to auscultation bilaterally, no crackles, no rales, no rhonchi and no wheezes Cardio Jugular venous distension: no JVD Rate: regular rate Rhythm: regular rhythm Heart sounds: S1 normal heart sound present, S2 normal heart sound present, no murmurs and no rubs Neuro General: patient oriented x3 Extrem General: Yes normal to inspection, No no pedal edema and No calf tenderness Psych Appearance: grossly normal Mental Status: mental status grossly normal Speech and movement: Normal speech and movement present Office Procedures Cardiac Device Check Cardiac Device Check Details: Dual-chamber [employer] pacemaker in place. Programmed in DDDR at 60 beats per minute. Rate response was turned more aggressive. Activity level noted to about 2 hours with blunted heart rate response. Atrial pacing thresholds are adequate and reprogrammed to provide adequate safety. Ventricular pacing thresholds adequate and reprogrammed to enhance battery life. Atrial ventricular sensing is adequate. Pacing lead impedance is stable. Battery life is excellent. No episodes of atrial fibrillation [place] [id number] Cardiac Device Check, pacemaker dual lead Procedure code (CPT) selection complete EKG Details: EKG shows atrially paced, ventricularly sensed rhythm with right bundle-branch block 34230-Puweypgpazqmtgeca, Complete Assessment & Plan Assessment & Plan (1) Paroxysmal atrial fibrillation: Code(s): I48.0 - Paroxysmal atrial fibrillation Category: Medical Plan: Highly symptomatic paroxysmal atrial fibrillation which has remained suppressed and completely absent on Multaq therapy on pacer telemetry. Continue Multaq. Has done very well with rhythm control approach will continue pursue rhythm control approach. Continue full oral anticoagulation, currently on Eliquis 5 mg b.i.d.. Given her symptoms of chronotropic incompetence low blood pressure will reduce metoprolol to 12.5 mg b.i.d.. Avoidance of stimulants was discussed. Will continue monitor pacer telemetry. (2) Cardiac pacemaker in situ: Code(s): Z95.0 - Presence of cardiac pacemaker Category: Medical Plan: Cardiac pacemaker in-situ for sick sinus syndrome, atrially pacing 99% of time. Pacemaker was reprogrammed for adequate functioning. Will continue monitor remotely and follow up in the clinic in 3 months time. (3) Atherosclerotic cardiovascular disease: Code(s): I25.10 - Atherosclerotic heart disease of [place] coronary artery without angina pectoris Category: Medical Plan: CAD with moderately severe two-vessel coronary disease. She is doing well from that perspective. Currently on full oral anticoagulation Eliquis and therefore avoid aspirin therapy. Continue high-intensity statin therapy. Target goal LDL less than 60 mg/dL. No symptoms suggestive of angina. Continue monitor clinically. (4) Orthostatic lightheadedness: Code(s): R42 - Dizziness and giddiness Category: Medical Plan: Patient's symptoms of dizziness and orthostatic lightheadedness most likely related to low blood pressure. Advised to increase fluid intake and liberalize her salt intake. Will decrease metoprolol to 12.5 mg b.i.d.. Continue to advised to monitor blood pressure. Orthostatic precautions were discussed. Follow up in the clinic in 3 months time, sooner p.r.n.. Thank you for allowing me to partake in his care Medications: Changed From metoprolol tartrate 25 mg PO BID 180 tabs 3RF To metoprolol tartrate 12.5 mg (1/2 x 25 mg) PO BID 180 tabs 3RF Coding Level of Care Code Est Pt Level 4 (05752) Diagnoses Paroxysmal atrial fibrillation I48.0 Cardiac pacemaker in situ Z95.0 Atherosclerotic cardiovascular disease I25.10 Orthostatic lightheadedness R42 CPT Codes Cardiac Device Check - Cardiac Device 2: [id number] Cardiac Device Check, pacemaker dual lead ([id number]) EKG - CPT: 41186-Uhnvohcaazdoepnkf, Complete ([id number])
== END 2024-02-20 09:57 | disposition home or self-care (01) ==
PROVIDERS: PCP Internal Medicine; Visit Provider Internal Medicine Cardiovascular Disease
DX: I48.0 Paroxysmal atrial fibrillation (principal); Z95.0 Presence of cardiac pacemaker; I25.10 Atherosclerotic heart disease of native coronary artery without angina pectoris; R42 Dizziness and giddiness
CPT/HCPCS: 93010; 93280; 99214

== ENCOUNTER → 2024-02-20 09:16 | Outpatient (BNVA) | payer MEDICARE, SELFPAY | PROVIDERS: PCP Internal Medicine; Visit Provider Internal Medicine Cardiovascular Disease | DX: I48.0 Paroxysmal atrial fibrillation (principal); I25.10 Atherosclerotic heart disease of native coronary artery without angina pectoris; R42 Dizziness and giddiness; Z95.0 Presence of cardiac pacemaker | CPT/HCPCS: 93005; 93280; 99212 ==

== ENCOUNTER → 2024-04-08 23:59 | Outpatient (BNV) | payer MEDICARE, SELFPAY ==
--- NOTE | 2024-04-09 11:48 | MHC.OFFVIS ---
Intake Visit Reasons: Remote device check- [facility] Allergies Sulfa (Sulfonamide Antibiotics) Allergy (Intermediate, Verified 01/08/24 14:57) Swollen red eyes cefuroxime Adverse Reaction (Intermediate, Uncoded 01/08/24 14:57) Stomach Upset PFSH Medical History (Updated 02/20/24 @ 10:03 by Tomer Morales MD) Cardiac pacemaker in situ Visit for wound check Dizziness GERD (gastroesophageal reflux disease) Sick sinus syndrome Atrial fibrillation with rapid ventricular response Atrial fibrillation History of transesophageal echocardiography (ELIGIO) Left atrial dilatation Orthostatic lightheadedness Pain and swelling of left lower leg Exertional dyspnea Swelling of joint of left hand Pain in joint of left hand Overweight (BMI 25.0-29.9) Allergic rhinitis Pure hypercholesterolemia Osteoarthritis Dyslipidemia Vitamin D deficiency Age related osteoporosis Surgical History (Updated 02/20/24 @ 10:03 by Tomer Morales MD) History of permanent cardiac pacemaker placement (~09/01/23) Status post cardiac catheterization History of cardiac cath Hx of cataract removal with insertion of prosthetic lens (~12/2014) Hx of section Family History Mother Prediabetes Hyperlipidemia Hypertension Father No problems noted. Social History Household Members: Spouse Housing: House Do you presently have visiting nurse or other home services: No Alcohol intake: current Alcohol intake frequency: does not drink Patient Tobacco Use Status: Never used Tobacco e-Cigarette/Vaping Use: Never Used Second Hand Smoke Exposure: Yes service: No Current occupational status: retired Cognitive needs: No Hearing needs: Yes Vision needs: No Office Procedures Cardiac Device Check Cardiac Device Check Details: Remote pacemaker report generated 04/08/2024. Pacemaker function is adequate. No episodes of atrial fibrillation noted [id number] Cardiac Device Interrogation, pacemaker Procedure code (CPT) selection complete Assessment & Plan Assessment & Plan (1) Cardiac pacemaker in situ: Code(s): Z95.0 - Presence of cardiac pacemaker Category: Medical Plan: See above Coding Level of Care Code Procedure Only Diagnoses Cardiac pacemaker in situ Z95.0 CPT Codes Cardiac Device Check - Cardiac Device 12: [id number] Cardiac Device Interrogation, pacemaker ([id number])
== END ==
PROVIDERS: PCP Internal Medicine; Visit Provider Internal Medicine Cardiovascular Disease
DX: Z45.018 Encounter for adjustment and management of other part of cardiac pacemaker (principal)
CPT/HCPCS: 93294

== ENCOUNTER 2024-05-19 09:45 | Outpatient (REF) | payer MEDICARE, SELFPAY | END 2024-05-19 09:46 | disposition home or self-care (01) | LOC: HO.HOSX 09:45 | PROVIDERS: PCP Internal Medicine; Visit Provider Orthopaedic Surgery | DX: M17.12 Unilateral primary osteoarthritis, left knee (principal); M25.552 Pain in left hip | CPT/HCPCS: 20610; 73560; 73562; 99212; J0665; J1100; J2003 ==

== ENCOUNTER 2024-05-19 09:45 | Outpatient (AMB) | payer MEDICARE, SELFPAY ==
[2024-05-19 09:49] VITALS: BMI 24.0
--- NOTE | 2024-05-19 09:49 | MHC.OFFVIS ---
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 Denies injury. No previous treatments. She has pain all the time but feels better with activity. Pain in the left knee and the left hip is felt at night. The left hip pain is described as an aching and numbing pain that radiates down the entirety of the leg. She takes Tylenol for this which is helpful Allergies Sulfa (Sulfonamide Antibiotics) Allergy (Intermediate, Verified 01/08/24 14:57) Swollen red eyes cefuroxime Adverse Reaction (Intermediate, Uncoded 01/08/24 14:57) Stomach Upset HPI HPI [employer]OR [employer]LE[employer]CH[employer]ES- Pain in LT hip and LT knee: Details: Yaritza is a 73 year old female who presents today as a new patient with complaints of left knee pain, She has had ongoing pain since the middle of April. Denies injury. No previous treatments. She has pain all the time but feels better with activity. Pain in the left knee and the left hip is felt at night. The left hip pain is described as an aching and numbing pain that radiates down the entirety of the leg. She takes Tylenol for this which is helpful PENDING SALE TO [facility] Medical History Cardiac pacemaker in situ Visit for wound check Dizziness GERD (gastroesophageal reflux disease) Sick sinus syndrome Atrial fibrillation with rapid ventricular response Atrial fibrillation History of transesophageal echocardiography (ELIGIO) Left atrial dilatation Orthostatic lightheadedness Pain and swelling of left lower leg Exertional dyspnea Swelling of joint of left hand Pain in joint of left hand Overweight (BMI 25.0-29.9) Allergic rhinitis Pure hypercholesterolemia Osteoarthritis Dyslipidemia Vitamin D deficiency Age related osteoporosis Surgical History History of permanent cardiac pacemaker placement (~09/01/23) Status post cardiac catheterization History of cardiac cath Hx of cataract removal with insertion of prosthetic lens (~12/2014) Hx of section Family History Mother Prediabetes Hyperlipidemia Hypertension Father No problems noted. Social History Household Members: Spouse Housing: House Do you presently have visiting nurse or other home services: No Alcohol intake: current Alcohol intake frequency: does not drink Patient Tobacco Use Status: Never used Tobacco e-Cigarette/Vaping Use: Never Used Second Hand Smoke Exposure: Yes service: No Current occupational status: retired Cognitive needs: No Hearing needs: Yes Vision needs: No Physical Exam Vital Signs: BMI result Body Mass Index 24.0 Extrem Other: Mild left knee effusion and tenderness to palpation medial compartment. Office Procedures Joint Inj/Aspir; Non-Pain Clin Joint Injection/Drain Details: Injected 1 mL of Decadron and 3 mL 1% lidocaine and 3 mL of 0.25% Marcaine. Site was prepped using aseptic technique. Patient tolerated the procedure well. Approach Used: anterolateral Shoulders, Hips, Knees, Knee Large Joint Injection 94467: Left Knee Coding Procedure code (CPT) selection complete Results Reviewed Results Reviewed: Moderate tricompartmental left knee osteoarthritis affecting the patellofemoral compartment most severely. Assessment & Plan Assessment & Plan (1) Osteoarthritis of left knee: Code(s): M17.12 - Unilateral primary osteoarthritis, left knee Category: Medical Plan: This is a 73-year-old woman who is not a surgical candidate left knee osteoarthritis. I injected her left knee today. She can follow up in 3 months for repeat injections if she finds this helpful. Orders: Orders XR knee LT 3V 05/19/24 M25.562 - Pain in left knee Coding Level of Care Code Est Pt Level 3 (71963) Diagnoses Osteoarthritis of left knee M17.12 CPT Codes Shoulders, Hips, Knees, - Knee Large Joint Injection 32592: Left Knee ([id number])
== END 2024-05-19 12:52 | disposition home or self-care (01) ==
PROVIDERS: PCP Internal Medicine; Visit Provider Orthopaedic Surgery
DX: M17.12 Unilateral primary osteoarthritis, left knee (principal)
CPT/HCPCS: 20610; 99213

== ENCOUNTER 2024-05-20 12:48 | Outpatient (AMB) | payer MEDICARE, SELFPAY ==
--- NOTE | 2024-05-20 12:57 | MHC.OFFVIS ---
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 Feeder: Glass Cutting Machine Feeder Present Accompanied by: Spouse Allergies Sulfa (Sulfonamide Antibiotics) Allergy (Intermediate, Verified 01/08/24 14:57) Swollen red eyes cefuroxime Adverse Reaction (Intermediate, Uncoded 01/08/24 14:57) Stomach Upset Medication List - Last Reconciled 05/20/24 by Tomer Moraels MD apixaban (Eliquis) 5 mg PO BID cholecalciferol (vitamin D3) 50 mcg PO DAILY 90 days dronedarone (Multaq) 400 mg PO BID metoprolol tartrate 12.5 mg (1/2 x 25 mg) PO BID rosuvastatin (Crestor) 40 mg PO DAILY HPI Comments Details: Yaritza comes for urgent follow-up visit as she was having fluttering in his chest. She has symptoms of spinning of the when she lays down to the right side at nighttime and the 1st time she wakes up in the morning. She has not had any lightheadedness or syncope. Blood pressure in the systolic 100-110 range. She has not had any further hypotension. She denies any heart failure symptoms. She recently she says she was started having left knee pain and whenever she was in severe pain at nighttime she would feel fluttering in his chest. No prolonged palpitation irregular heartbeat. No exertional chest pain. She is noticing more exertional shortness of breath although says over the last few months she has not been able to exercise much due to her lower extremity joint issues. Denies any orthopnea, PND, leg edema. No bleeding issues or neurologic events. [facility] Medical History Cardiac pacemaker in situ Visit for wound check Dizziness GERD (gastroesophageal reflux disease) Sick sinus syndrome Atrial fibrillation with rapid ventricular response Atrial fibrillation History of transesophageal echocardiography (ELIGIO) Left atrial dilatation Orthostatic lightheadedness Pain and swelling of left lower leg Exertional dyspnea Swelling of joint of left hand Pain in joint of left hand Overweight (BMI 25.0-29.9) Allergic rhinitis Pure hypercholesterolemia Osteoarthritis Dyslipidemia Vitamin D deficiency Age related osteoporosis Surgical History History of permanent cardiac pacemaker placement (~09/01/23) Status post cardiac catheterization History of cardiac cath Hx of cataract removal with insertion of prosthetic lens (~12/2014) Hx of section Family History Mother Prediabetes Hyperlipidemia Hypertension Father No problems noted. Social History Household Members: Spouse Housing: House Do you presently have visiting nurse or other home services: No Alcohol intake: current Alcohol intake frequency: does not drink Patient Tobacco Use Status: Never used Tobacco e-Cigarette/Vaping Use: Never Used Second Hand Smoke Exposure: Yes service: No Current occupational status: retired Cognitive needs: No Hearing needs: Yes Vision needs: No Review of Systems Const Denies chills, Denies fatigue, Denies fever(s), Denies frequent falls, Denies weakness, Denies weight gain and Denies weight loss ENT Denies dizziness Card Denies chest pain, Denies leg edema, Denies lightheadedness, Denies palpitations, Denies dyspnea, Denies dyspnea on exertion, Denies orthopnea and Denies other (loss of consciousness) Resp Denies cough, Denies dyspnea and Denies dyspnea on exertion GI Denies hematochezia and Denies change in stool character Musc Denies abnormal gait, Denies muscle weakness, Denies numbness, Denies radiating pain into limb and Denies tingling Neuro Denies abnormal gait, Denies dizziness, Denies frequent falls, Denies numbness, Denies tingling and Denies weakness Endo Denies fatigue and Denies palpitations Physical Exam Vital Signs: Last Vital Signs Pulse 60 05/20/24 12:58 BP 114/62 05/20/24 12:58 BMI result Body Mass Index 25.4 Const General: cooperative, healthy appearing, comfortable, no acute distress and anxious Orientation/consciousness: patient oriented x3 Neck Neck: Yes normal visual inspection and Yes no JVD Chest Other: Pacer site left upper chest - dressing removed, incision well approximated, no bruising, swelling or drainage Resp Effort & Inspection: normal respiratory effort Auscultation: clear to auscultation bilaterally, no crackles, no rales, no rhonchi and no wheezes Cardio Jugular venous distension: no JVD Rate: regular rate Rhythm: regular rhythm Heart sounds: S1 normal heart sound present, S2 normal heart sound present, no murmurs and no rubs Neuro General: patient oriented x3 Extrem General: Yes normal to inspection, No no pedal edema and No calf tenderness Psych Appearance: grossly normal Mental Status: mental status grossly normal Speech and movement: Normal speech and movement present Office Procedures Cardiac Device Check Cardiac Device Check Details: Dual-chamber [facility] pacemaker in place. Programmed in DDDR at 60 beats per minute. Atrial ventricular sensing is excellent. Atrial ventricular capture thresholds adequate and reprogrammed to provide adequate safety. Pacing lead impedance is stable. Battery life is at about 10 years. No episodes of atrial fibrillation any arrhythmias noted [id number] Cardiac Device Check, pacemaker dual lead Procedure code (CPT) selection complete EKG Details: EKG shows atrially paced, ventricularly sensed rhythm with right bundle-branch block 09940-Uewvfcchiobydcjna, Complete Assessment & Plan Assessment & Plan (1) Paroxysmal atrial fibrillation: Code(s): I48.0 - Paroxysmal atrial fibrillation Category: Medical Plan: Paroxysmal atrial fibrillation has remained overall suppressed with no recurrence on Multaq therapy. She continues to have symptoms of flutter in situations of pain which is most likely related to either PACs or PVCs. There is no clear significant frequency noted on the pacer telemetry. Continue Multaq therapy. Benign nature of this was discussed. Continue full oral anticoagulation, currently on apixaban 5 mg b.i.d.. Semi annual renal function test should be pursued. Continue to avoid stimulants. Stress mitigation strategies were discussed. A blood pressure is on the lower side and therefore will discontinue metoprolol (2) Cardiac pacemaker in situ: Code(s): Z95.0 - Presence of cardiac pacemaker Category: Medical Plan: Cardiac pacemaker in-situ, working well. Patient using a pacemaker acquire bit in the atrium. Pacemaker is working well otherwise. Will follow remotely as well as follow up in the clinic in 6 months. (3) Atherosclerotic cardiovascular disease: Code(s): I25.10 - Atherosclerotic heart disease of [place] coronary artery without angina pectoris Category: Medical Plan: CAD with moderate disease without any symptoms of angina. Continue aggressive vascular risk factor modification. Blood pressure is well optimized. Continue high-intensity statin therapy with target goal LDL closer to 60 mg/dL. No indication for aspirin therapy given that she is on full oral anticoagulation therapy. Will follow up in the clinic in 6 months time, sooner p.r.n.. Thank you for allowing me to partake in her care (4) Dizziness: Code(s): R42 - Dizziness and giddiness Plan: Patient with dizziness which appears to be more vertiginous although her blood pressure is on lower side will discontinue metoprolol. Coding Level of Care Code Est Pt Level 4 (16411) Complex EM visit Add On G2211 Diagnoses Paroxysmal atrial fibrillation I48.0 Cardiac pacemaker in situ Z95.0 Atherosclerotic cardiovascular disease I25.10 Dizziness R42 CPT Codes Cardiac Device Check - Cardiac Device 2: [id number] Cardiac Device Check, pacemaker dual lead ([id number]) EKG - CPT: 66706-Uwnkmhmihequnuxfz, Complete ([id number])
[2024-05-20 12:58] VITALS: BP 114/62; PULSE 60; BMI 25.4
== END 2024-05-20 13:33 | disposition home or self-care (01) ==
PROVIDERS: PCP Internal Medicine; Visit Provider Internal Medicine Cardiovascular Disease
DX: I48.0 Paroxysmal atrial fibrillation (principal); Z95.0 Presence of cardiac pacemaker; I25.10 Atherosclerotic heart disease of native coronary artery without angina pectoris; R42 Dizziness and giddiness
CPT/HCPCS: 93010; 93280; 99214; G2211

== ENCOUNTER → 2024-05-20 12:48 | Outpatient (BNVA) | payer MEDICARE, SELFPAY | PROVIDERS: PCP Internal Medicine; Visit Provider Internal Medicine Cardiovascular Disease | DX: Z45.018 Encounter for adjustment and management of other part of cardiac pacemaker (principal); I48.0 Paroxysmal atrial fibrillation; I25.10 Atherosclerotic heart disease of native coronary artery without angina pectoris; R42 Dizziness and giddiness; I45.10 Unspecified right bundle-branch block; R94.31 Abnormal electrocardiogram [ECG] [EKG] | CPT/HCPCS: 93005; 93280; 99212 ==

== ENCOUNTER 2024-06-04 07:15 | Outpatient (REF) | payer MEDICARE, SELFPAY ==
[2024-06-04 10:24] LABS: MANUAL DIFF FLAG NO
[2024-06-04 10:29] LABS: Basophils Absolute Auto 0.1 X10*3/uL (0.0-0.2); Basophils Percent Auto 0.8 % (0-2); Eosinophils Percent Auto 13.2 % (0-4); Hematocrit 35.2 % (37.0-47.0); Hemoglobin 11.9 g/dl (12.0-16.0); Imm Gran Abs Auto 0.02 X10*3/uL (0.00-0.03); Imm Gran Pct Auto 0.3 % (0.0-0.4); Lymphocytes Absolute Auto 2.2 X10*3/uL (1.2-4.9); Lymphocytes Percent Auto 29.6 % (20-40); Mean Corpuscular HGB Conc 33.8 g/dl (31.0-35.0); Mean Corpuscular Hemoglobin 31.4 pg (27.0-33.0); Mean Corpuscular Volume 92.9 fL (80.0-98.0); Mean Platelet Volume 11.8 fL (9.4-12.3); Monocytes Absolute Auto 0.6 X10*3/uL (0.1-1.2); Monocytes Percent Auto 8.4 % (2-11); Neutrophils Absolute Auto 3.6 x10*3/uL (2.0-8.3); Neutrophils Percent Auto 47.7 % (45-73); Platelet Count 285 X10*3/uL (160-400); Red Blood Count 3.79 X10*6/uL (4.20-5.50); Red Cell Distribution Width 12.4 % (11.0-16.0); White Blood Count 7.5 X10*3/uL (4.8-10.8)
[2024-06-04 11:03] LABS: Alanine Aminotransferase 74 U/L (0-31); Alkaline Phosphatase 61 U/L (39-117); Anion Gap 11 (12-20); Aspartate Amino Transferase 80 U/L (5-31); Bilirubin Total 0.4 mg/dL (0.0-1.0); Blood Urea Nitrogen 15 mg/dL (9-16); Calcium 9.4 mg/dL (8.4-10.2); Carbon Dioxide 25 mmol/L (22-29); Chloride 107 mmol/L (96-108); Cholesterol 158 mg/dL (<200); Estimated Glomerular Filt Rate > 60; Glucose Fasting 90 mg/dL (60-99); HDL Cholesterol 78 mg/dL (>40); LDL Cholesterol Calculated 69 mg/dL (<100); Potassium 3.9 mmol/L (3.3-5.1); Sodium 139 mmol/L (135-145); Total Protein 6.9 g/dL (6.5-8.0); Triglycerides 56 mg/dL (<150)
[2024-06-04 11:05] LABS: Appearance Urine Clear; Color Urine Yellow; Glucose Urine UA Negative (Negative); Leukocyte Esterase Urine Moderate (2+) (Negative); Nitrite Urine Negative (Negative); PH 6.5 (5.0-9.0); UMIC TRIGGER UACC YES; Urine Blood Negative (Negative); Urine Ketones Negative (Negative); Urine Protein Negative (Neg-Trace)
[2024-06-04 11:09] LABS: Bacteria Urine None Seen (None Seen); Hyaline Casts Urine 0-2 /LPF (0-2); RBC Urine 0-2 /HPF (0-2); Squamous Epithelial Cell Urine 0-2 /HPF (0-2); UACC Culture Trigger YES
[2024-06-04 11:23] LABS: TSH reflex Free T4 2.38 uIU/mL (0.32-4.0); Vitamin D 25-OH Total 46.1 ng/mL (>30)
--- OUTSIDE RECORDS SUMMARY | 2024-06-10 16:14 | XMS_ITS ---
Author Name [facility] Organization Unknown History of Medication Use Medication Directions Dispensed Refills Start Date End Date Stat iohexol (OMNIPAQUE) 350 mg/mL injection 80 mL 80 mL, Intravenous, Once in imaging, contrast, Starting on Sun12/31/23 at 0944, For 1 dose, Radiology Appointment 01/03/2024 completed Problems Problem Status Onset Date Problem Type Date of Resoluti on Source Abnormal stress ECG active EncounterDiagnosisAc t HHCCT Exertional shortness of breath active EncounterDiagnosisAct CCT
== END 2024-06-04 07:16 | disposition home or self-care (01) ==
LOC: HO.HMGCX 07:15
PROVIDERS: PCP Internal Medicine; Visit Provider Internal Medicine
DX: M25.552 Pain in left hip (principal); M54.50 Low back pain, unspecified; E78.00 Pure hypercholesterolemia, unspecified; E55.9 Vitamin D deficiency, unspecified; D64.9 Anemia, unspecified; R30.0 Dysuria
CPT/HCPCS: 36415; 72100; 73502; 80053; 80061; 81001; 81003; 82306; 84443; 85025; 87086

== ENCOUNTER 2024-06-05 10:51 | Outpatient (AMB) | payer MEDICARE, SELFPAY ==
--- NOTE | 2024-06-05 11:22 | MHC.OFFWIV ---
Intake Vital Signs 06/05/24 11:25 Weight 137 lb BP 122/70 Blood Pressure Location Lt brachial Position Sitting Pulse 60 Pulse Source Pulse Oximeter Pulse Oximetry (%) 98 Oxygen Delivery Method Room Air Intake Visit Reasons: EP LT side, swollen gland Intake Note: Patient here for left sided swolen gland, she states she brought her viviane tree in and noticed the tingling shortly after. Patient Tobacco Use Status: Never used Tobacco Allergies Sulfa (Sulfonamide Antibiotics) Allergy (Intermediate, Verified 06/05/24 11:26) Swollen red eyes cefuroxime Adverse Reaction (Intermediate, Uncoded 06/05/24 11:26) Stomach Upset Do you need a note to return to daycare/school/sports/work: No HPI HPI Comments History of Present Illness Details History of Present Illness The patient is a 73-year-old female presenting with swelling near her left ear, suspected to be an allergic reaction. The symptoms began after acquiring a [place] tree two days prior, coinciding with a history of similar symptoms upon exposure to Viviane trees in previous years. The patient reported nasal congestion, sneezing, and rhinorrhea without associated fever or cough. The left ear exhibited discomfort, believed to be related to the glandular swelling. Notably, the patient has a history of allergies and previously experienced symptom resolution upon removal of the tree. Currently, the symptomatic side shows swelling and tenderness near the ear, along with a diagnostic finding of cobblestoning at the back of the throat. The patient denies any history of heart failure but does have a pacemaker, placed earlier this year due to bradycardia associated with atrial fibrillation. Physical Exam General: Cooperative, healthy appearing, comfortable, no acute distress and well developed Orientation: Patient oriented x3 Limitations: No limitations Head: Normal to inspection Ears: Hearing grossly normal bilaterally, left ear slightly red and tender Nose: Runny nose, sneezing noted Face and sinus: Normal facial exam, cobblestoning noted in oropharynx Eyes: Appearance normal, both eyes and all related structures Neck: Normal visual inspection and Yes full ROM, lymphadenopathy left sided GI: Normal to inspection. Soft to palpation and nontender Skin: No rashes or lesions noted Neuro: Patient oriented x3 Extremities: Normal to inspection [facility] Medical History Cardiac pacemaker in situ Visit for wound check Dizziness GERD (gastroesophageal reflux disease) Sick sinus syndrome Atrial fibrillation with rapid ventricular response Atrial fibrillation History of transesophageal echocardiography (ELIGIO) Left atrial dilatation Orthostatic lightheadedness Pain and swelling of left lower leg Exertional dyspnea Swelling of joint of left hand Pain in joint of left hand Overweight (BMI 25.0-29.9) Allergic rhinitis Pure hypercholesterolemia Osteoarthritis Dyslipidemia Vitamin D deficiency Age related osteoporosis Surgical History History of permanent cardiac pacemaker placement (~09/01/23) Status post cardiac catheterization History of cardiac cath Hx of cataract removal with insertion of prosthetic lens (~12/2014) Hx of section Family History Mother Prediabetes Hyperlipidemia Hypertension Father No problems noted. Social History Household Members: Spouse Housing: House Do you presently have visiting nurse or other home services: No Alcohol intake: current Alcohol intake frequency: does not drink Patient Tobacco Use Status: Never used Tobacco e-Cigarette/Vaping Use: Never Used Second Hand Smoke Exposure: Yes service: No Current occupational status: retired Cognitive needs: No Hearing needs: Yes Vision needs: No Review of Systems Const All systems reviewed & are unremarkable except as noted in HPI and below Physical Exam Vital Signs: Last Vital Signs Pulse 60 06/05/24 11:25 BP 122/70 06/05/24 11:25 Pulse Ox 98 06/05/24 11:25 Oxygen Delivery Method Room Air 06/05/24 11:25 Assessment & Plan Assessment & Plan (1) Swelling of lymph node: Code(s): R59.9 - Enlarged lymph nodes, unspecified Plan: For the allergic rhinitis and associated glandular swelling, increase fluid intake to aid in flushing out allergens naturally. The patient is advised to take a daily antihistamine, such as Cetirizine or Levocetirizine, to manage symptoms during the presence of the [employer]. Check with a pharmacist to ensure no interaction with current cardiac medications. Monitor for symptom resolution with the expectation of improvement upon allergen removal. If persistent, consult a primary care physician for further evaluation, including the possibility of lymph node assessment. Patient was informed and verbally consented to the use of an ambient scribe for clinic note documentation during this visit. (2) Allergic rhinitis: Comment: Very mild, seasonal Code(s): J30.9 - Allergic rhinitis, unspecified Qualifiers: Allergic rhinitis trigger: unspecified Allergic rhinitis seasonality: unspecified Qualified Code(s): J30.9 - Allergic rhinitis, unspecified Plan: as above Coding Level of Care Code Est Pt Level 3 (04756) Diagnoses Swelling of lymph node R59.9 Allergic rhinitis, unspecified seasonality, unspecified trigger J30.9 Allergic rhinitis trigger: unspecified Allergic rhinitis seasonality: unspecified
[2024-06-05 11:25] VITALS: BP 122/70; PULSE 60; O2SAT 98
== END 2024-06-05 12:34 | disposition home or self-care (01) ==
PROVIDERS: PCP Internal Medicine; Visit Provider Physician Assistant
DX: R59.9 Enlarged lymph nodes, unspecified (principal); J30.9 Allergic rhinitis, unspecified

== ENCOUNTER → 2024-06-05 10:51 | Outpatient (BNVA) | payer MEDICARE, SELFPAY | PROVIDERS: PCP Internal Medicine; Visit Provider Physician Assistant | DX: R59.9 Enlarged lymph nodes, unspecified (principal); J30.9 Allergic rhinitis, unspecified | CPT/HCPCS: 99212 ==

== ENCOUNTER 2024-06-06 09:07 | Emergency (ER) | payer MEDICARE, SELFPAY ==
--- NOTE | ~2024-06-06 | CT_ITS ---
EXAMINATION: CT SOFT TISSUE NECK WITH CONTRAST CLINICAL INFORMATION: Left-sided neck swelling . COMPARISON: CT soft tissue neck dated August 22, 2019. TECHNIQUE: Following the intravenous administration of 60 mL of Omnipaque 350 intravenous contrast, helical imaging was performed in the axial plane with generation of coronal and sagittal reformatted images. This CT examination was performed using dose optimization techniques as appropriate, variously including the following: *Automated exposure control *Adjustment of mA and/or kV according to patient size (this includes techniques or standardized protocols for targeted exams where dose is matched to indication/reason for exam; i.e. extremities or head) *Use of iterative reconstruction technique DLP: 380 mGy-cm FINDINGS: There is a 2 cm peripheral enhancing low density center in the inferior aspect of the deep left parotid gland resulting in mass effect and extrinsic compression upon the adjacent retromandibular vein and its branches. There is thickening of the left platysma and edema pattern in the the fat planes beneath the platysma into the submandibular compartment. There is no calcifications in the left parotid gland. There is a nodularity of both parotid glands. The submandibular glands demonstrate no gross masses or calcifications. There is a nodular soft tissue fullness of the lingual tonsils more conspicuous on the left side extending into the left vallecula. Skull base, nasopharynx, retropharynx, and larynx demonstrated no gross masses or fluid collections. Bar Tacker space, parapharyngeal spaces and carotid spaces demonstrate no gross masses or fluid collections. The thyroid gland is not enlarged with the subcentimeter low-density nodules likely colloid cyst. Calcified plaques in the carotid bulbs and proximal ICAs bilaterally. No gross lymphadenopathy. Calcified plaques in the coronary arteries. There is a metallic reservoir pacemaker in the anterior upper left hemithorax chest wall with incomplete visualization of the electrode leads. Calcified plaques in the cavernous supracavernous segments both ICA. Tympanic cavities and mastoid cells are aerated. No air-fluid levels in the paranasal sinuses. No masses in the orbits. Edentulous.. Multilevel cervical spondylosis. CT/CT soft tissue neck w IV con IMPRESSION: Phlegmon versus abscess, inferior deep left parotid gland. Underlying neoplasm cannot be excluded. Prominent lingual tonsils. Electronically signed by: Albert Quiroz MD 06/06/2024 12:28 PM [facility]
[2024-06-06 09:12] VITALS: BP 137/54; PULSE 63; RESP 16; TEMP 35.6; O2SAT 97; BMI 25.5
[2024-06-06 10:12] LABS: MANUAL DIFF FLAG NO
--- NOTE | 2024-06-06 10:12 | ED_ITS ---
HPI - General Adult General Chief complaint: General Medical Stated complaint: Swollen neck Time Seen by Provider: 06/06/24 10:00 Source: patient, RN notes reviewed and old records reviewed Mode of arrival: ambulatory Limitations: no limitations History of Present Illness ED Provider: Roddy Youssef PA-C HPI narrative: 73 yo female with history of afib on eliquis, sick sinus syndrome s/p pacemaker, GERD, allergic rhinitis, HLD, osteoarthritis who presents to the ER for evaluation of left sided neck swelling that started 3 days ago. Patient reports that the day after she got her Viviane tree she started having some itchy throat. when she woke up yesterday she noticed a tender and swollen area below her left ear, down into her neck which prompted her to be seen at the urgent care clinic. This was thought to be an enlarged lymph node and patient was started on antihistamines. She states she woke up today with worsening swelling and tenderness of the left side of her neck, it was extending down into the neck making her more concerned and prompting ER visit today. She denies any associated fever, chills, voice changes, difficulty speaking or swallowing. She does not endorse exertional dyspnea which is acute on chronic. No chest pain, abdominal pain, nausea, vomiting, chills. No other appreciated lymphadenopathy per the patient. MD complaint: Left-sided neck swelling Onset (ago): day(s) Location: neck Radiation: distal Severity: moderate Severity scale (1-10): 5 Quality: aching Pain Consistency: constant Relieving factors: rest Exacerbating factors: other ( palpation) Associated symptoms: malaise Treatments prior to arrival: none Related Data Previous Rx's ?Medication ?Instructions ?Recorded apixaban 5 mg tablet (Eliquis) 5 mg PO BID #180 tabs 10/18/23 cholecalciferol (vitamin D3) 50 50 mcg PO DAILY 90 days #90 caps 02/08/24 mcg (2,000 unit) capsule rosuvastatin 40 mg tablet (Crestor) 40 mg PO DAILY #90 tabs 03/31/24 dronedarone 400 mg tablet (Multaq) 400 mg PO BID #60 tabs 06/03/24 amoxicillin 875 mg-potassium 1 tab PO BID #20 tabs 06/06/24 clavulanate 125 mg tablet Allergies Allergy/AdvReac Type Severity Reaction Status Date / Time Sulfa (Sulfonamide Allergy Intermediate Swollen Verified 06/06/24 09:15 Antibiotics) red eyes cefuroxime AdvReac Intermediate Stomach Uncoded 06/05/24 11:26 Upset Review of Systems 2 Review of Systems: Yes all other systems are reviewed and are negative [facility] Past Medical History Medical History Cardiac pacemaker in situ Visit for wound check Dizziness GERD (gastroesophageal reflux disease) Sick sinus syndrome Atrial fibrillation with rapid ventricular response Atrial fibrillation History of transesophageal echocardiography (EILGIO) Left atrial dilatation Orthostatic lightheadedness Pain and swelling of left lower leg Exertional dyspnea Swelling of joint of left hand Pain in joint of left hand Overweight (BMI 25.0-29.9) Allergic rhinitis Pure hypercholesterolemia Osteoarthritis Dyslipidemia Vitamin D deficiency Age related osteoporosis Surgical History History of permanent cardiac pacemaker placement (~09/01/23) Status post cardiac catheterization History of cardiac cath Hx of cataract removal with insertion of prosthetic lens (~12/2014) Hx of section Family History Family History Mother Prediabetes Hyperlipidemia Hypertension Father No problems noted. Social History Social History Household Members: Spouse Housing: House Do you presently have visiting nurse or other home services: No Alcohol intake: current Alcohol intake frequency: does not drink Patient Tobacco Use Status: Never used Tobacco e-Cigarette/Vaping Use: Never Used Second Hand Smoke Exposure: Yes service: No Current occupational status: retired Cognitive needs: No Hearing needs: Yes Vision needs: No Physical Exam ED Vital Signs: Vital Signs - 24 hr 06/06/24 09:12 06/06/24 11:15 06/06/24 14:37 Temperature 96.0 F L 98.1 F 98.2 F Pulse Rate 63 60 64 Respiratory Rate 16 14 13 Blood Pressure 137/54 L 141/69 H 143/63 H Pulse Oximetry 97 99 97 Oxygen Delivery Method Room Air Room Air Room Air 06/06/24 15:04 Temperature 98.2 F Pulse Rate 64 Respiratory Rate 13 Blood Pressure 143/63 H Pulse Oximetry 97 Oxygen Delivery Method Room Air BMI result Body Mass Index 25.5 Appearance: Alert. Oriented X3. No acute distress. Head: normocephalic, atraumatic. Eyes: Pupils equal, round and reactive to light. ENT: Pharynx normal. No tonsillar swelling or exudate. normal voice, handling secretions normally. Uvula midline. Neck: Mild/moderate swelling of the left lateral neck with associated tenderness Starting at the angle of the mandible and extending down the neck, palpable tender mass approximately 3cm, nonmobile. no other palpable lymphadenopathy CVS: Normal heart rate and rhythm. Pulses normal. Respiratory: No respiratory distress. Breath sounds normal. Abdomen: Soft and nontender. +BS x4 Skin: Skin warm and dry. Normal skin color. Normal skin turgor. No rashes. Extremities: No lower extremity edema. No joint swelling. Neuro/psych: Oriented X 3. No motor deficit. No sensory deficit. CN II-XII intact. Normal speech and cognition. Medications Administered Discontinued Medications Generic Name Dose Route Start Last Admin Trade Name Freq PRN Reason Stop Dose Admin Ampicillin Sodium/Sulbactam 100 mls @ 200 mls/hr 06/06/24 12:53 06/06/24 13:48 Sodium 3 gm/ Sodium Chloride IV 06/06/24 13:22 Infused ONCE ONE Infusion Iohexol 60 ml 06/06/24 10:53 06/06/24 10:54 Iohexol 350 Mg/Ml 75 Ml Infus..Btl IV 06/06/24 10:54 60 ml ONCE ONE Administration Medical Decision Making Medical Decision Making MDM Narrative: 73-year-old female with history of AFib on Eliquis, sick sinus syndrome status post pacemaker, hyperlipidemia, osteoarthritis, GERD who presents to the ER for evaluation of worsening left lateral neck swelling for the last 3 days. Symptoms acutely worse this morning. On examination she does have a tender mass in the left lateral neck with tenderness extending into the soft tissues of the neck. She has a normal voice, handling secretions normally. Oropharynx has normal in appearance. She is hemodynamically stable, no fever. Lab work showing no leukocytosis. CT scan of the soft tissues and neck were performed which shows question of phlegmon versus abscess. On review there does appear to be a rim enhancing lesion concerning for abscess. Discussed with Dr. Amato as well as Dr. Briones recommend Ear Nose and Throat evaluation Spoke with Dr. Funk at [place] [id number]. She reviewed the imaging. She is recommending oral antibiotics and outpatient follow up with her next week. Recommending augmentin. results and plan were discussed with the patient. She was given strict return precautions and advised to follow up. Stable for discharge home with close ENT follow-up. Differential Diagnosis Differential Diagnoses: The differential diagnosis associated with the presentation includes parotiditis, parotid abscess, adenitis/lymphadenopathy, viral etiology, malignancy Admission/Observation Consideration of admission/observation: Escalation of care including admission/observation considered Consult Healthcare Provider Management of the patient was discussed with: Mathematics Instructor Dr. Briones from General surgery recommended ear nose and throat specialty evaluation and follow-up Dr. Fukn ENT Lab Data MDM Lab Attestation statement: I reviewed the patient's lab results. no leukocytosis, mild anemia, no major metabolic derangement 06/06/24 10:07 06/06/24 10:07 Labs: Lab Results 06/06/24 06/06/24 Range/Units 10:07 13:16 WBC 8.3 (4.8-10.8) X10*3/uL RBC 3.56 L (4.20-5.50) X10*6/uL Hgb 11.4 L (12.0-16.0) g/dl Hct 32.4 L (37.0-47.0) % MCV 91.0 (80.0-98.0) fL MCH 32.0 (27.0-33.0) pg MCHC 35.2 H (31.0-35.0) g/dl RDW 12.3 (11.0-16.0) % Plt Count 251 (160-400) X10*3/uL MPV 11.0 (9.4-12.3) fL Immature Gran % (Auto) 0.4 (0.0-0.4) % Neut % (Auto) 73.0 (45-73) % Lymph % (Auto) 11.6 L (20-40) % Cla[place]orne % (Auto) 9.5 (2-11) % Eos % (Auto) 4.9 H (0-4) % Baso % (Auto) 0.6 (0-2) % Lymph # (Auto) 1.0 L (1.2-4.9) X10*3/uL [place] # (Auto) 0.8 (0.1-1.2) X10*3/uL Eos # (Auto) 0.4 (0.0-0.4) X10*3/uL Baso # (Auto) 0.1 (0.0-0.2) X10*3/uL Abs Immat Gran (auto) 0.03 (0.00-0.03) X10*3/uL Absolute Neuts (auto) 6.1 (2.0-8.3) x10*3/uL Absolute Nucleated RBC 0.000 (0.0-0.012) X10*3/uL Nucleated RBC % (auto) 0.0 (0.0-0.2) /100WBC ESR 24 H (0-20) MM/HR Sodium 137 (135-145) mmol/L Potassium 4.3 (3.3-5.1) mmol/L Chloride 106 (96-108) mmol/L Carbon Dioxide 26 (22-29) mmol/L Anion Gap 9 L (12-20) BUN 11 (9-16) mg/dL Creatinine 0.80 (0.5-1.4) mg/dL Estim Creat Clear Calc 50.9 Estimated GFR > 60 Random Glucose 105 (60-115) mg/dL Lactic Acid 0.8 (0.5-2.0) mmol/L Calcium 9.3 (8.4-10.2) mg/dL Total Bilirubin 0.3 (0.0-1.0) mg/dL AST 42 H (5-31) U/L ALT 53 H (0-31) U/L Alkaline Phosphatase 61 (39-117) U/L C-Reactive Protein 1.65 H (< or = 0.50) mg/dL Total Protein 6.9 (6.5-8.0) g/dL Albumin 3.9 (3.5-5.0) g/dL Independent Interpretation I performed an independent interpretation of an: CT Scan Interpretation: rim enhancing lesion on the left side of the neck within versus deep to the parotid gland Radiology Impression Discussion of test interpretation with radiology: I have reviewed the radiologist's reading. Radiologist Impression: EXAMINATION: CT SOFT TISSUE NECK WITH CONTRAST CLINICAL INFORMATION: Left-sided neck swelling . COMPARISON: CT soft tissue neck dated August 22, 2019. TECHNIQUE: Following the intravenous administration of 60 mL of Omnipaque 350 intravenous contrast, helical imaging was performed in the axial plane with generation of coronal and sagittal reformatted images. This CT examination was performed using dose optimization techniques as appropriate, variously including the following: *Automated exposure control *Adjustment of mA and/or kV according to patient size (this includes techniques or standardized protocols for targeted exams where dose is matched to indication/reason for exam; i.e. extremities or head) *Use of iterative reconstruction technique DLP: 380 mGy-cm FINDINGS: There is a 2 cm peripheral enhancing low density center in the inferior aspect of the deep left parotid gland resulting in mass effect and extrinsic compression upon the adjacent retromandibular vein and its branches. There is thickening of the left platysma and edema pattern in the the fat planes beneath the platysma into the submandibular compartment. There is no calcifications in the left parotid gland. There is a nodularity of both parotid glands. The submandibular glands demonstrate no gross masses or calcifications. There is a nodular soft tissue fullness of the lingual tonsils more conspicuous on the left side extending into the left vallecula. Skull base, nasopharynx, retropharynx, and larynx demonstrated no gross masses or fluid collections. Dedicated Owner Operator space, parapharyngeal spaces and carotid spaces demonstrate no gross masses or fluid collections. The thyroid gland is not enlarged with the subcentimeter low-density nodules likely colloid cyst. Calcified plaques in the carotid bulbs and proximal ICAs bilaterally. No gross lymphadenopathy. Calcified plaques in the coronary arteries. There is a metallic reservoir pacemaker in the anterior upper left hemithorax chest wall with incomplete visualization of the electrode leads. Calcified plaques in the cavernous supracavernous segments both ICA. Tympanic cavities and mastoid cells are aerated. No air-fluid levels in the paranasal sinuses. No masses in the orbits. Edentulous.. Multilevel cervical spondylosis. CT/CT soft tissue neck w IV con IMPRESSION: Phlegmon versus abscess, inferior deep left parotid gland. Underlying neoplasm cannot be excluded. Prominent lingual tonsils. Independent Historian Clinical information obtained from an independent historian. History obtained from or confirmed by: Spouse External Record Review External record reviewed: Outpatient record, Prior outpatient labs and Prior outpatient radiology Prescription Management I considered prescription management with: Pain Medication and Antibiotic Chronic Conditions Patient?s care impacted by: Other ( AFib on Eliquis) Critical Care Time Critical Care Time Critical Care Time: Yes Total Critical Care Time: 42 Attestation: I have personally provided critical care time exclusive of time spent on separately billable procedures. Time includes review of lab data, radiology results, discussion with consultants, and monitoring for potential decompensation. Intervention performed as documented. Discharge Plan Discharge Clinical Impression: Abscess of parotid gland Patient Disposition: Home, Self-Care Instructions: Sialoadenitis (ED) Additional Instructions: Take the prescribed antibiotics as directed, complete the entire course and do not miss any doses. Next dose is due before bed today ENT office at [facility] should contact you next week. If you do not hear from them by Sunday, call [phone] to arrange follow up (Dr. Alissa Funk is aware of your case) If you develop new or worsening symptoms call [phone] or come back to the ER for further evaluation. EXAMINATION: CT SOFT TISSUE NECK WITH CONTRAST CLINICAL INFORMATION: Left-sided neck swelling . COMPARISON: CT soft tissue neck dated August 22, 2019. TECHNIQUE: Following the intravenous administration of 60 mL of Omnipaque 350 intravenous contrast, helical imaging was performed in the axial plane with generation of coronal and sagittal reformatted images. This CT examination was performed using dose optimization techniques as appropriate, variously including the following: *Automated exposure control *Adjustment of mA and/or kV according to patient size (this includes techniques or standardized protocols for targeted exams where dose is matched to indication/reason for exam; i.e. extremities or head) *Use of iterative reconstruction technique DLP: 380 mGy-cm FINDINGS: There is a 2 cm peripheral enhancing low density center in the inferior aspect of the deep left parotid gland resulting in mass effect and extrinsic compression upon the adjacent retromandibular vein and its branches. There is thickening of the left platysma and edema pattern in the the fat planes beneath the platysma into the submandibular compartment. There is no calcifications in the left parotid gland. There is a nodularity of both parotid glands. The submandibular glands demonstrate no gross masses or calcifications. There is a nodular soft tissue fullness of the lingual tonsils more conspicuous on the left side extending into the left vallecula. Skull base, nasopharynx, retropharynx, and larynx demonstrated no gross masses or fluid collections. Dedicated Owner Operator space, parapharyngeal spaces and carotid spaces demonstrate no gross masses or fluid collections. The thyroid gland is not enlarged with the subcentimeter low-density nodules likely colloid cyst. Calcified plaques in the carotid bulbs and proximal ICAs bilaterally. No gross lymphadenopathy. Calcified plaques in the coronary arteries. There is a metallic reservoir pacemaker in the anterior upper left hemithorax chest wall with incomplete visualization of the electrode leads. Calcified plaques in the cavernous supracavernous segments both ICA. Tympanic cavities and mastoid cells are aerated. No air-fluid levels in the paranasal sinuses. No masses in the orbits. Edentulous.. Multilevel cervical spondylosis. CT/CT soft tissue neck w IV con IMPRESSION: Phlegmon versus abscess, inferior deep left parotid gland. Underlying neoplasm cannot be excluded. Prominent lingual tonsils. Prescriptions: New amoxicillin-pot clavulanate 875-125 mg tablet 1 tab PO BID Qty: 20 0RF No Action cholecalciferol (vitamin D3) 50 mcg (2,000 unit) capsule 50 mcg PO DAILY 90 Days Qty: 90 3RF rosuvastatin [Crestor] 40 mg tablet 40 mg PO DAILY Qty: 90 3RF Multaq 400 mg tablet 400 mg PO BID Qty: 60 2RF Eliquis 5 mg tablet 5 mg PO BID Qty: 180 3RF Referrals: Bernabe Peterson MD [Primary Care Provider] - Alissa Funk MD [Physician] - Interventions: ED Discharge Assessment Last Done: 06/06/24 15:04 Discharge Date/Time: 06/06/24 15:05 Print Language: Togolese
[2024-06-06 10:17] LABS: Basophils Absolute Auto 0.1 X10*3/uL (0.0-0.2); Basophils Percent Auto 0.6 % (0-2); Eosinophils Absolute Auto 0.4 X10*3/uL (0.0-0.4); Eosinophils Percent Auto 4.9 % (0-4); Hematocrit 32.4 % (37.0-47.0); Hemoglobin 11.4 g/dl (12.0-16.0); Imm Gran Abs Auto 0.03 X10*3/uL (0.00-0.03); Imm Gran Pct Auto 0.4 % (0.0-0.4); Lymphocytes Percent Auto 11.6 % (20-40); Mean Corpuscular HGB Conc 35.2 g/dl (31.0-35.0); Monocytes Absolute Auto 0.8 X10*3/uL (0.1-1.2); Monocytes Percent Auto 9.5 % (2-11); Neutrophils Absolute Auto 6.1 x10*3/uL (2.0-8.3); Platelet Count 251 X10*3/uL (160-400); Red Blood Count 3.56 X10*6/uL (4.20-5.50); Red Cell Distribution Width 12.3 % (11.0-16.0); White Blood Count 8.3 X10*3/uL (4.8-10.8)
[2024-06-06 10:33] LABS: Alanine Aminotransferase 53 U/L (0-31); Albumin Level 3.9 g/dL (3.5-5.0); Alkaline Phosphatase 61 U/L (39-117); Anion Gap 9 (12-20); Aspartate Amino Transferase 42 U/L (5-31); Bilirubin Total 0.3 mg/dL (0.0-1.0); Blood Urea Nitrogen 11 mg/dL (9-16); Calcium 9.3 mg/dL (8.4-10.2); Carbon Dioxide 26 mmol/L (22-29); Chloride 106 mmol/L (96-108); Creatinine Clr Calc Pharmacy 50.9; Estimated Glomerular Filt Rate > 60; Glucose Random 105 mg/dL (60-115); Potassium 4.3 mmol/L (3.3-5.1); Sodium 137 mmol/L (135-145); Total Protein 6.9 g/dL (6.5-8.0)
[2024-06-06] MEDS: iohexoL 350 MG/ML 75 ML INFUS..BTL 60 ML IV (10:54)
[2024-06-06 11:15] VITALS: BP 141/69; PULSE 60; RESP 14; TEMP 36.7; O2SAT 99
[2024-06-06 12:51] LABS: C Reactive Protein 1.65 mg/dL (< or = 0.50)
[2024-06-06] MEDS: Ampicillin Sodium/Sulbactam Na 3 GM in 0.9 % Sodium Chloride 100 ML IV (13:18)
[2024-06-06 13:33] LABS: Erythrocyte Sedimentation Rate 24 MM/HR (0-20)
[2024-06-06 13:39] LABS: Lactic Acid 0.8 mmol/L (0.5-2.0)
[2024-06-06 14:37] VITALS: BP 143/63; PULSE 64; RESP 13; TEMP 36.8; O2SAT 97
[2024-06-06 15:04] VITALS: BP 143/63; PULSE 64; RESP 13; TEMP 36.8; O2SAT 97
== END 2024-06-06 15:05 | disposition home or self-care (01) ==
PROVIDERS: Physician Assistant; Emergency Provider Emergency Medicine Emergency Medical Services; PCP Internal Medicine
DX: K11.3 Abscess of salivary gland (principal); E78.00 Pure hypercholesterolemia, unspecified; I48.0 Paroxysmal atrial fibrillation; Z95.0 Presence of cardiac pacemaker; Z79.01 Long term (current) use of anticoagulants; Z79.02 Long term (current) use of antithrombotics/antiplatelets; Z79.899 Other long term (current) drug therapy
CPT/HCPCS: 36415; 70491; 80053; 83605; 85025; 85652; 86140; 87040; 96365; 99283; 99284; J0295; Q9967

== ENCOUNTER → 2024-06-06 10:11 | Outpatient (BNV) | payer MEDICARE, SELFPAY | PROVIDERS: Emergency Provider Emergency Medicine Emergency Medical Services; PCP Internal Medicine; Visit Provider Radiology Diagnostic Radiology | DX: R22.1 Localized swelling, mass and lump, neck (principal); J35.1 Hypertrophy of tonsils | CPT/HCPCS: 70491 ==

== ENCOUNTER 2024-06-12 09:41 | Outpatient (AMB) | payer MEDICARE, SELFPAY ==
[2024-06-12 09:48] VITALS: BP 122/70; PULSE 73; O2SAT 99; BMI 25.4
--- NOTE | 2024-06-12 09:48 | A.OFFPC_ITS ---
Vital Signs 06/12/24 09:48 Height 5 ft 1 in Weight 134 lb 4 oz BMI 25.4 BP 122/70 Blood Pressure Location Lt brachial Position Sitting Pulse 73 Pulse Source Pulse Oximeter Pulse Oximetry (%) 99 Oxygen Delivery Method Room Air Intake Visit Reasons: 6 Month F/U Translation Director Required: No Accompanied by: Self / Same As Patient Allergies Sulfa (Sulfonamide Antibiotics) Allergy (Intermediate, Verified 06/12/24 10:58) Swollen red eyes cefuroxime Adverse Reaction (Intermediate, Uncoded 06/12/24 10:58) Stomach Upset Medication List - Last Reconciled 06/12/24 by Bernabe Peterson MD amoxicillin-pot clavulanate 875-125 mg 1 tab PO BID apixaban (Eliquis) 5 mg PO BID cholecalciferol (vitamin D3) 50 mcg PO DAILY 90 days dronedarone (Multaq) 400 mg PO BID rosuvastatin (Crestor) 40 mg PO DAILY Tobacco use date assessed: 06/12/24 Fall risk assessment: No Falls in past year Last assessed Fall Risk: 06/12/24 Dental Screening Dental Screen Date: 06/12/24 Did you have a dental visit in the last 12 months?: No Did you have a dental problem in the last 6 months where you did not have access to dental care?: No Was dental information given to patient?: No HPI 6 Month F/U HPI Details Patient comes in today for her follow-up visit She reportedly went to the emergency room about 2 weeks ago for increasing sore throat and was diagnosed with a throat abscess and started on antibiotics (Augmentin), which she is currently still finishing up States that her sore throat has improved significantly ENT was consulted at the time and was advised to continue with antibiotic therapy with no surgical intervention recommended and she will be seen in 2 weeks for outpatient follow-up - states that she has an appointment with ENT tomorrow She recalls that her symptoms started at the she set up her [place] tree She also recalled experiencing increased symptoms of runny nose and nasal congestion following exposure to live [place] trees in the past and states that she has since switched over to using artificial [place] trees now She denies any headaches or dizziness; denies any sore throat at present or fever Denies any chest pains, no shortness of breath No nausea/vomiting, no abdominal pain No change in bowel habits noted She had her follow-up labs done last week - to discuss her results [facility] Medical History Cardiac pacemaker in situ Visit for wound check Dizziness GERD (gastroesophageal reflux disease) Sick sinus syndrome Atrial fibrillation with rapid ventricular response Atrial fibrillation History of transesophageal echocardiography (ELIGIO) Left atrial dilatation Orthostatic lightheadedness Pain and swelling of left lower leg Exertional dyspnea Swelling of joint of left hand Pain in joint of left hand Overweight (BMI 25.0-29.9) Allergic rhinitis Pure hypercholesterolemia Osteoarthritis Dyslipidemia Vitamin D deficiency Age related osteoporosis Surgical History History of permanent cardiac pacemaker placement (~09/01/23) Status post cardiac catheterization History of cardiac cath Hx of cataract removal with insertion of prosthetic lens (~12/2014) Hx of section Family History Mother Prediabetes Hyperlipidemia Hypertension Father No problems noted. Social History Household Members: Spouse Housing: House Do you presently have visiting nurse or other home services: No Alcohol intake: current Alcohol intake frequency: does not drink Patient Tobacco Use Status: Never used Tobacco e-Cigarette/Vaping Use: Never Used Second Hand Smoke Exposure: Yes service: No Current occupational status: retired Cognitive needs: No Hearing needs: Yes Vision needs: No Questionnaire PHQ-9 Over the last 2 weeks, how often have you been bothered by any of the following problems? 1. Little interest or pleasure in doing things: not at all 2. Feeling down, depressed, or hopeless: not at all 3. Trouble falling or staying asleep, or sleeping too much: not at all 4. Feeling tired or having little energy: not at all 5. Poor appetite or overeating: not at all 6. Feeling bad about yourself - or that you are a failure or have let yourself or your family down: not at all 7. Trouble concentrating on things, such as reading the newspaper or watching television: not at all 8. Moving or speaking so slowly that other people could have noticed. Or the op posite - being so fidgety or restless that you have been moving around a lot more than usual: not at all 9. Thoughts that you would be better off or of hurting yourself in some way: not at all Total score: 0 Depression Screening Interpretation: Negative Depression Screening Done: Yes 28594 - PHQ-9 Billing: Yes Source: Developed by Drs. Al Amato, Nathaly Allison, Yvan Wu and colleagues, with an educational mindy from [employer]. Thrive Questionnaire Date Thrive assessed: 06/12/24 I am a: Patient What is your living situation today?: I have a steady place to live Within the past 12 months, did the food you bought not last and you didn't have the money to get more?: Never true Within the past 12 months, did you worry whether your food would run out before you got money to buy more?: Never true Do you have trouble paying for medicines?: No Do you have trouble getting transportation to medical appointments?: No Do you have trouble paying your heating and electricity bill?: No Do you have trouble taking care of your child, family member or friend?: No Do you have trouble with day-to-day activities such as bathing, preparing meals, shopping, managing finances, etc.?: No Are you currently unemployed and looking for a job?: No Are you interested in more education?: No Please select the resources that you would like help with: None Currently or been in a relationship where the following occur: No concerns reported THRIVE Score: 0 AUDIT C Alcohol Use Questionnaire (AUDIT-C) 1. How often do you have a drink containing alcohol?: Monthly or less 2. How many drinks containing alcohol do you have on a typical day when you are drinking?: 1 or 2 3. How often do you have six or more drinks on one occasion?: Never Total Score: 1 Score Reviewed/Action Taken: Yes KEYON-7 AMB Questionnaire KEYON-7 Date KEYON - 7 assessed: 06/12/24 Feeling nervous, anxious, or on edge: 0 = Not at all Not being able to stop or control worryin = Not at all Worrying too much about different things: 0 = Not at all Trouble relaxin = Not at all Being so restless that it is hard to sit still: 0 = Not at all Becoming easily annoyed or irritable: 0 = Not at all Feeling afraid as if something awful might happen: 0 = Not at all Total KEYON-7 score (0-4 normal; 5-9 mild; 10-14 moderate; 15-21 severe): 0 Source: Developed by Drs. Al Amato, Nathaly Allison, Yvan Wu and colleagues, with an educational mindy from [employer]. Review of Systems Const Denies chills, Denies fatigue, Denies fever(s) and Denies headache(s) ENT Denies dysphagia, Denies dizziness, Denies otalgia, Denies headache(s), Denies neck pain, Denies odynophagia and Denies sore throat (improved) Card Denies chest pain, Denies palpitations and Denies dyspnea Resp Denies chest congestion, Denies cough, Denies dyspnea and Denies wheezing GI Denies abdominal pain, Denies constipation, Denies dysphagia, Denies heartburn, Denies diarrhea, Denies nausea, Denies odynophagia and Denies vomiting Denies hematuria, Denies difficulty voiding, Denies nocturia, Denies dysuria and Denies urinary urgency Musc Denies back pain, Denies arthralgias and Denies neck pain Skin/Breast Denies rash Neuro Reports as per HPI, Denies dizziness, Denies headache(s) and Denies Sensory deficit (Neuro) Psych Reports anxiety Endo Denies fatigue and Denies palpitations Aller/Immun Denies wheezing Physical exam (Primary Care) Vital Signs: Last Vital Signs Pulse 73 06/12/24 09:48 BP 122/70 06/12/24 09:48 Pulse Ox 99 06/12/24 09:48 Oxygen Delivery Method Room Air 06/12/24 09:48 BMI result Body Mass Index 25.4 Tobacco/Smoking Status: Tobacco use Status Tobacco use date assessed 06/12/24 06/12/24 09:54 Patient Tobacco Use Status Never used Tobacco 06/12/24 09:54 e-Cigarette/Vaping Use Never Used 06/12/24 09:54 PHQ-9: PHQ-9 Score PHQ-9: Total score 0 06/12/24 10:39 Depression Screening Interpretation: Negative Thrive Assessment: Date of Thrive Assessment Date Thrive assessed 06/12/24 06/12/24 09:54 Currently or been in a relationship where the following occur: No concerns reported Const General: no acute distress and alert HENMT Ears: TM's normal bilaterally and EAC's normal Throat: Yes posterior oropharynx normal and Yes tonsils normal (no TP congestion) Neck Neck: Yes supple and No lymphadenopathy Thyroid: Thyroid normal Resp Auscultation: clear to auscultation bilaterally, no rales and no wheezes Cardio Rate: regular rate Rhythm: regular rhythm Heart sounds: no murmurs GI Palpation (GI): Soft to palpation and nontender Auscultation: normal bowel sounds General: Yes no CVA tenderness Back/Spine/Pelvis Back: no CVA tenderness Thoracic/Lumbar Spine: No lumbar spinal tenderness Skin Rashes: no rashes Neuro Sensory Exam: No Sensory deficit (Neuro) Extrem General: Yes no clubbing, cyanosis or edema Results Reviewed Results Reviewed: Laboratory Tests 06/04/24 06/04/24 06/06/24 07:20 07:25 10:07 WBC 8.3 Hgb 11.4 L Hct 32.4 L Plt Count 251 ESR 24 H Sodium 137 Potassium 4.3 Creatinine 0.80 Estimated GFR > 60 Fasting Glucose 90 Calcium 9.3 AST 42 H ALT 53 H Triglycerides 56 Cholesterol 158 LDL Cholesterol, Calc 69 HDL Cholesterol 78 25-OH Vitamin D Total 46.1 TSH 2.38 Ur Specific [place] 1.010 Urine Protein Negative Urine Glucose (UA) Negative Urine Blood Negative Urine Nitrite Negative Ur Leukocyte Esterase Moderate (2+) H Coding Level of Care Code Est Pt Level 4 (41789) Diagnoses Atherosclerotic cardiovascular disease I25.10 Sick sinus syndrome I49.5 Paroxysmal atrial fibrillation I48.0 Pure hypercholesterolemia E78.00 Gastroesophageal reflux disease without esophagitis K21.9 Esophagitis presence: without esophagitis Age-related osteoporosis without current pathological fracture M81.0 Presence of current pathological fracture: without current pathological fracture Vitamin D deficiency E55.9 Allergic rhinitis, unspecified seasonality, unspecified trigger J30.9 Allergic rhinitis trigger: unspecified Allergic rhinitis seasonality: unspecified Pharyngeal abscess J39.1 Additional Codes PHQ-9 - 87266 - PHQ-9 Billing: Yes ([id number]) Assessment & Plan Assessment & Plan (1) Atherosclerotic cardiovascular disease: Code(s): I25.10 - Atherosclerotic heart disease of [place] coronary artery without angina pectoris Category: Medical Plan: Her myocardial perfusion study done on 12/03/2023 revealed (+) equivocal findings for anterior and mild intensity apical ischemia in the LAD territory, with (+) transient ischemic dilatation noted. Gated LVEF is at 63% Patient had a coronary CTA done at [place] on 12/31/2023 - she had a coronary CT score of 563, with findings of two-vessel disease with moderate to severe plaque stenosis She currently does not have any concerning signs and symptoms and has been advised by cardiology to continue with medical management and aggressive risk reduction and only if she develops any limiting episodes of exertional chest discomfort and/or shortness of breath will cardiology pursue invasive cardiac catheterization (2) Sick sinus syndrome: Code(s): I49.5 - Sick sinus syndrome Category: Medical Plan: Patient developed AF with RVR back at the end of July 2023 and presented to the ER with symptoms of persistent palpitations She underwent ELIGIO with cardioversion successfully and has been predominantly bradycardic since She was scheduled for outpatient pacemaker insertion in early August 2023 but ended up going back to the ER that weekend for 2 separate episodes of chest pressure, nausea and diaphoresis She was admitted and ended up getting a dual chamber pacemaker insertion ahead of time on 09/01/2023 States that she has been feeling okay since with no recurrence of her chest pains/pressure or her previous symptoms of palpitations since (3) Paroxysmal atrial fibrillation: Code(s): I48.0 - Paroxysmal atrial fibrillation Category: Medical Plan: Continue Eliquis 5 mg BID for thromboembolism prophylaxis (CHADS VAsc score of 2) and Metoprolol 50 mg BID Her Fleicanide 50 mg Q 12 hours was discontinued due to her recent abnormal stress test and she was started instead on Multaq 400 mg BID and has been doing well on Multaq since Follow up with cardiology as scheduled (4) Pure hypercholesterolemia: Code(s): E78.00 - Pure hypercholesterolemia, unspecified Category: Medical Plan: Results of her labs done last week reviewed and discussed with patient - she is advised that her cholesterol levels have improved significantly from previous Reinforce low-cholesterol diet Continue Rosuvastatin 40 mg QD Will recheck her labs and fasting lipids in 6 months for follow-up (5) GERD (gastroesophageal reflux disease): Code(s): K21.9 - Gastro-esophageal reflux disease without esophagitis Category: Medical Qualifiers: Esophagitis presence: without esophagitis Qualified Code(s): K21.9 - Gastro-esophageal reflux disease without esophagitis Plan: Her upper GI series done back in 2020 revealed (+) acid reflux as well as a hiatal hernia Reinforced dietary restrictions in GERD She was started on Pantoprazole 40 mg QD a few months ago but she recently stopped taking this when she developed diarrhea States that her symptoms have mostly subsided and she does not wish to be started on any other medications at this time (6) Age related osteoporosis: Code(s): M81.0 - Age-related osteoporosis without current pathological fracture Category: Medical Qualifiers: Presence of current pathological fracture: without current pathological fracture Qualified Code(s): M81.0 - Age-related osteoporosis without current pathological fracture Plan: Her most recent BMD done on 02/07/2022 showed no significant change in BMD from her previous one done in 2019; lowest T-score was at -3.0 in the lumbar spine Patient continues to decline pharmacotherapy -? feels that she is healthy and active and prefers not to take any additional medications at this time She was referred to and seen by endocrinology over the past few months and was advised that they do not need to see her regularly if she does not wish to pursue pharmacotherapy Continue Vitamin D and calcium supplements daily and patient is again reminded to exercise regularly Reinforced fall precautions at all times (7) Vitamin D deficiency: Code(s): E55.9 - Vitamin D deficiency, unspecified Category: Medical Plan: Continue Vitamin D3 2000 units QD (8) Allergic rhinitis: Comment: Very mild, seasonal Code(s): J30.9 - Allergic rhinitis, unspecified Category: Medical Qualifiers: Allergic rhinitis trigger: unspecified Allergic rhinitis seasonality: unspecified Qualified Code(s): J30.9 - Allergic rhinitis, unspecified Plan: Continue Fluticasone nasal spray and/or OTC antihistamines like Loratadine 10 mg QD PRN for symptomatic relief Per request, will refer her to Allergy and immunology for further evaluation and allergy testing (9) Pharyngeal abscess: Code(s): J39.1 - Other abscess of pharynx Category: Medical Plan: Improving - continue Augmentin 875 mg BID Follow-up with ENT (Dr. Funk) as scheduled Plan Follow up in 6 months Orders: Orders Complete Blood Count Auto Diff 6 Months D64.9 - Anemia, unspecified Comprehensive [place]. Panel Fast 6 Months E78.00 - Pure hypercholesterolemia, unspecified UA CC w/rflx Micro + Cult 6 Months R30.0 - Dysuria Lipid Panel 6 Months E78.00 - Pure hypercholesterolemia, unspecified Referrals Allergy & Immunology Referral Z91.018 - Allergy to other foods, Z91.09 - Other allergy status, other than to drugs and biological substances
== END 2024-06-12 11:04 | disposition home or self-care (01) ==
PROVIDERS: PCP Internal Medicine; Visit Provider Internal Medicine
DX: I25.10 Atherosclerotic heart disease of native coronary artery without angina pectoris (principal); I49.5 Sick sinus syndrome; I48.0 Paroxysmal atrial fibrillation; E78.00 Pure hypercholesterolemia, unspecified; K21.9 Gastro-esophageal reflux disease without esophagitis; M81.0 Age-related osteoporosis without current pathological fracture; E55.9 Vitamin D deficiency, unspecified; J30.9 Allergic rhinitis, unspecified; J39.1 Other abscess of pharynx

== ENCOUNTER → 2024-06-12 09:41 | Outpatient (BNVA) | payer MEDICARE, SELFPAY | PROVIDERS: PCP Internal Medicine; Visit Provider Internal Medicine | DX: I25.10 Atherosclerotic heart disease of native coronary artery without angina pectoris (principal); I49.5 Sick sinus syndrome; I48.0 Paroxysmal atrial fibrillation; E78.00 Pure hypercholesterolemia, unspecified; K21.9 Gastro-esophageal reflux disease without esophagitis; M81.0 Age-related osteoporosis without current pathological fracture; E55.9 Vitamin D deficiency, unspecified; J30.9 Allergic rhinitis, unspecified; J39.1 Other abscess of pharynx | CPT/HCPCS: 96127; 99212 ==

== ENCOUNTER 2024-07-07 09:13 | Outpatient (REF) | payer MEDICARE, SELFPAY ==
--- NOTE | ~2024-07-07 | XR_ITS ---
EXAMINATION: XR CHEST 2 VIEWS HISTORY: R05.9 - Cough, unspecified COMPARISON: Comparison is made with the prior examination dated 01/19/2024. FINDINGS: PA and lateral views of the chest are submitted. A left subclavian dual chamber pacemaker is unchanged position. The lungs are expanded and clear. There is no pleural effusion, pneumothorax, or pulmonary vascular congestion. The heart is normal in size. Again seen is a moderate hiatal hernia. There is degenerative disc disease of the spine. XR/XR chest 2V IMPRESSION: Moderate hiatal hernia. No acute cardiopulmonary abnormality. Electronically signed by: Al Lo MD 07/07/2024 01:14 PM [facility] [place]
[2024-07-07 14:11] LABS: Influenza A PCR NEGATIVE (Negative); Influenza B PCR NEGATIVE (Negative); Resp Syncy Virus RNA Qual PCR POSITIVE (Negative); SARS COV2 PCR INHOUSE NEGATIVE (Negative)
== END 2024-07-07 09:14 | disposition home or self-care (01) ==
LOC: HO.HMGCX 09:13
PROVIDERS: PCP Internal Medicine; Visit Provider Internal Medicine
DX: R05.9 Cough, unspecified (principal); J06.9 Acute upper respiratory infection, unspecified
CPT/HCPCS: 0241U; 71046

== ENCOUNTER → 2024-07-07 10:08 | Outpatient (BNV) | payer MEDICARE, SELFPAY | PROVIDERS: PCP Internal Medicine; Visit Provider Radiology Diagnostic Radiology | DX: R05.9 Cough, unspecified (principal); K44.9 Diaphragmatic hernia without obstruction or gangrene | CPT/HCPCS: 71046 ==

== ENCOUNTER → 2024-07-08 23:59 | Outpatient (BNV) | payer MEDICARE, SELFPAY ==
--- NOTE | 2024-07-09 16:26 | MHC.OFFVIS ---
Intake Visit Reasons: Remote device check- [facility] Allergies Sulfa (Sulfonamide Antibiotics) Allergy (Intermediate, Verified 07/07/24 09:47) Swollen red eyes cefuroxime Adverse Reaction (Intermediate, Uncoded 06/12/24 10:58) Stomach Upset PFSH Medical History Cardiac pacemaker in situ Visit for wound check Dizziness GERD (gastroesophageal reflux disease) Sick sinus syndrome Atrial fibrillation with rapid ventricular response Atrial fibrillation History of transesophageal echocardiography (ELIGIO) Left atrial dilatation Orthostatic lightheadedness Pain and swelling of left lower leg Exertional dyspnea Swelling of joint of left hand Pain in joint of left hand Overweight (BMI 25.0-29.9) Allergic rhinitis Pure hypercholesterolemia Osteoarthritis Dyslipidemia Vitamin D deficiency Age related osteoporosis Surgical History History of permanent cardiac pacemaker placement (~09/01/23) Status post cardiac catheterization History of cardiac cath Hx of cataract removal with insertion of prosthetic lens (~12/2014) Hx of section Family History Mother Prediabetes Hyperlipidemia Hypertension Father No problems noted. Social History Household Members: Spouse Housing: House Do you presently have visiting nurse or other home services: No Alcohol intake: current Alcohol intake frequency: does not drink Patient Tobacco Use Status: Never used Tobacco e-Cigarette/Vaping Use: Never Used Second Hand Smoke Exposure: Yes service: No Current occupational status: retired Cognitive needs: No Hearing needs: Yes Vision needs: No Office Procedures Cardiac Device Check Cardiac Device Check Details: Remote pacemaker report generated 07/08/2024. Pacemaker function is adequate. No atrial fibrillation noted [id number] Cardiac Device Interrogation, pacemaker Procedure code (CPT) selection complete Assessment & Plan Assessment & Plan (1) Cardiac pacemaker in situ: Code(s): Z95.0 - Presence of cardiac pacemaker Category: Medical Plan: See above Coding Level of Care Code Procedure Only Diagnoses Cardiac pacemaker in situ Z95.0 CPT Codes Cardiac Device Check - Cardiac Device 12: [id number] Cardiac Device Interrogation, pacemaker ([id number])
== END ==
PROVIDERS: PCP Internal Medicine; Visit Provider Internal Medicine Cardiovascular Disease
DX: Z45.018 Encounter for adjustment and management of other part of cardiac pacemaker (principal)
CPT/HCPCS: 93294

== ENCOUNTER 2024-07-15 09:49 | Emergency (ER) | payer MEDICARE, SELFPAY ==
--- NOTE | ~2024-07-15 | XR_ITS ---
EXAMINATION: XR CHEST CLINICAL INFORMATION: SOB COMPARISON: X-ray dated July 07, 2024. TECHNIQUE: 2 views of the chest were obtained. FINDINGS: Hyperinflated lungs. Pulmonary reticular pattern. No consolidation, pleural effusion or pneumothorax. Cardiomediastinal silhouette demonstrates prominent pulmonary outlet. Calcified plaque thoracic aortic arch. 2 intact electrode leads in the right heart chambers from a left-sided pacemaker. Hiatal hernia, moderate to large volume. Osteopenia versus osteoporosis with the incomplete ankylosis of the anterior aspect of the mid thoracic spine. 30% volume loss of the vertebral bodies in the mid to lower thoracic spine likely old. Kyphotic deformity, thoracic spine. XR/XR chest 2V IMPRESSION: No acute airspace disease. Consider chronic interstitial lung disease. Hiatal hernia, moderate to large volume. Electronically signed by: Albert Quiroz MD 07/15/2024 10:54 AM CALEB
[2024-07-15 10:13] VITALS: BP 118/47; PULSE 60; RESP 20; TEMP 36.4; O2SAT 98; BMI 24.7
[2024-07-15 12:14] LABS: Influenza A PCR NEGATIVE (Negative); Influenza B PCR NEGATIVE (Negative); Resp Syncy Virus RNA Qual PCR NEGATIVE (Negative); SARS COV2 PCR INHOUSE NEGATIVE (Negative)
[2024-07-15 17:18] VITALS: BP 159/65; PULSE 66; RESP 17; TEMP 36.6; O2SAT 97
--- NOTE | 2024-07-15 17:27 | ED.URI ---
HPI - URI/Sore Throat General Chief Complaint: Upper Respiratory Symptoms Stated Complaint: RSV+, SOB Time Seen by Provider: 07/15/24 17:14 Source: patient and family Mode of arrival: ambulatory Limitations: no limitations History of Present Illness HPI Narrative: 73-year-old female presents emergency department with known RSV infection. She states she has AFib on Eliquis has a pacemaker on Multaq and takes medications for hyperlipidemia. She states she was seen at a walk-in clinic a week ago and found to have RSV she states she did start to feel better and then her symptoms have gotten worse over the past week she denies chest pain nausea vomiting or diarrhea. She states she just feels short of breath when she is ambulating does not have a cough. She states she expected to be better within 5-7 days of the initial infection and feels like she did and then got worse. She did have COVID flu and RSV as well as an x-ray while waiting to be seen. Which were all negative I did explain that symptoms can last anywhere from 6-8 weeks Related Data Previous Rx's ?Medication ?Instructions ?Recorded apixaban 5 mg tablet (Eliquis) 5 mg PO BID #180 tabs 10/18/23 cholecalciferol (vitamin D3) 50 50 mcg PO DAILY 90 days #90 caps 02/08/24 mcg (2,000 unit) capsule rosuvastatin 40 mg tablet (Crestor) 40 mg PO DAILY #90 tabs 03/31/24 dronedarone 400 mg tablet (Multaq) 400 mg PO BID #60 tabs 06/03/24 amoxicillin 500 mg capsule 500 mg PO Q8H #30 caps 07/07/24 benzonatate 100 mg capsule 100 mg PO BID-TID PRN cough #30 07/07/24 caps prednisone 20 mg tablet 60 mg (3 x 20 mg) PO DAILY #9 tabs 07/07/24 Allergies Allergy/AdvReac Type Severity Reaction Status Date / Time Sulfa (Sulfonamide Allergy Intermediate Swollen Verified 07/15/24 10:16 Antibiotics) red eyes cefuroxime AdvReac Intermediate Stomach Uncoded 07/15/24 10:16 Upset Review of Systems Review of Systems: Review of systems: General: Patient denies any fever chills recent illness or falls Musculoskeletal: Denies back pain or body aches or other injuries HEENT: denies headache, runny nose, ear pain Respiratory: denies shortness of breath, cough Cardiovascular: no chest pain or palpitations : denies dysuria, frequency Abdomen: no nausea vomiting denies abdominal pain Extremities: no swelling, no pain Skin: no diaphoresis Yes all other systems are reviewed and are negative PMFSH Past Medical History Medical History Cardiac pacemaker in situ Visit for wound check Dizziness GERD (gastroesophageal reflux disease) Sick sinus syndrome Atrial fibrillation with rapid ventricular response Atrial fibrillation History of transesophageal echocardiography (ELIGIO) Left atrial dilatation Orthostatic lightheadedness Pain and swelling of left lower leg Exertional dyspnea Swelling of joint of left hand Pain in joint of left hand Overweight (BMI 25.0-29.9) Allergic rhinitis Pure hypercholesterolemia Osteoarthritis Dyslipidemia Vitamin D deficiency Age related osteoporosis Surgical History History of permanent cardiac pacemaker placement (~09/01/23) Status post cardiac catheterization History of cardiac cath Hx of cataract removal with insertion of prosthetic lens (~12/2014) Hx of section Family History Family History Mother Prediabetes Hyperlipidemia Hypertension Father No problems noted. Social History Social History Household Members: Spouse Housing: House Do you presently have visiting nurse or other home services: No Alcohol intake: current Alcohol intake frequency: does not drink Patient Tobacco Use Status: Never used Tobacco e-Cigarette/Vaping Use: Never Used Second Hand Smoke Exposure: Yes service: No Current occupational status: retired Cognitive needs: No Hearing needs: Yes Vision needs: No Physical Exam Vital Signs: Vital Signs: Last Vital Signs Temp 97.9 F 07/15/24 17:18 Pulse 66 07/15/24 17:18 Resp 17 07/15/24 17:18 BP 159/65 H 07/15/24 17:18 Pulse Ox 97 07/15/24 17:18 O2 Del Method Room Air 07/15/24 17:18 BMI result Body Mass Index 24.7 General: Well-appearing well-nourished in no signs of distress HEENT: Normocephalic atraumatic Neck: No signs of JVD, no masses no tenderness or lymphadenopathy Cardiovascular: Regular rate and rhythm Respiratory: Clear to auscultation bilaterally Abdomen: Soft nontender no masses Extremities: Normal pedal pulses no signs of edema Skin: Dry warm no rashes Back: No tenderness full ROM Medical Decision Making Medical Decision Making MDM Narrative: Patient had x-ray and labs looks well I do feel comfortable discharging the patient home I explained that her send him a class for little bit longer she is okay with the plan to be discharged Differential Diagnosis Differential Diagnoses: The differential diagnosis associated with the presentation includes RSV bronchitis pneumonia Lab Data Labs: Lab Results 07/15/24 Range/Units 10:47 Influenza Type A (PCR) NEGATIVE (Negative) Influenza Type B (PCR) NEGATIVE (Negative) RSV RNA Qual (PCR) NEGATIVE (Negative) SARS-CoV-2 RNA (RT-PCR) NEGATIVE (Negative) Discharge Plan Discharge Clinical Impression: Bronchitis Patient Disposition: Home, Self-Care Instructions: Acute Bronchitis (ED) Additional Instructions: You were seen today in the emergency department for continued chest congestion. You had x-ray and repeat swabs for COVID flu and RSV which were all negative. Please call follow up with her doctor if you have any other concerns please return to the ER Prescriptions: No Action cholecalciferol (vitamin D3) 50 mcg (2,000 unit) capsule 50 mcg PO DAILY 90 Days Qty: 90 3RF rosuvastatin [Crestor] 40 mg tablet 40 mg PO DAILY Qty: 90 3RF Multaq 400 mg tablet 400 mg PO BID Qty: 60 2RF Eliquis 5 mg tablet 5 mg PO BID Qty: 180 3RF amoxicillin 500 mg capsule 500 mg PO Q8H Qty: 30 0RF prednisone 20 mg tablet 60 mg PO DAILY Qty: 9 0RF benzonatate 100 mg capsule 100 mg PO BID-TID PRN (Reason: cough) Qty: 30 0RF Print Language: Mongolian
[2024-07-15 17:35] VITALS: BP 159/65; PULSE 66; RESP 17; TEMP 36.6; O2SAT 97
== END 2024-07-15 17:38 | disposition home or self-care (01) ==
LOC: HO.ED 17:38
PROVIDERS: Emergency Provider Student in an Organized Health Care Education/Training Program; PCP Internal Medicine
DX: J40 Bronchitis, not specified as acute or chronic (principal); R06.02 Shortness of breath; Z03.818 Encounter for observation for suspected exposure to other biological agents ruled out; Z95.0 Presence of cardiac pacemaker; Z79.01 Long term (current) use of anticoagulants
CPT/HCPCS: 0241U; 71046; 99283

== ENCOUNTER → 2024-07-15 10:42 | Outpatient (BNV) | payer MEDICARE, SELFPAY | PROVIDERS: PCP Internal Medicine; Visit Provider Radiology Diagnostic Radiology | DX: R06.02 Shortness of breath (principal) | CPT/HCPCS: 71046 ==

== ENCOUNTER 2024-07-31 08:48 | Outpatient (AMB) | payer MEDICARE, SELFPAY ==
[2024-07-31 08:49] VITALS: BP 110/62; PULSE 62; TEMP 36.5; O2SAT 98; BMI 24.3
--- NOTE | 2024-07-31 08:49 | A.OFFPC_ITS ---
Vital Signs 07/31/24 08:49 Height 5 ft 2 in Weight 133 lb 2 oz BMI 24.3 BP 110/62 Blood Pressure Location Lt brachial Position Sitting Pulse 62 Pulse Source Pulse Oximeter Temp 97.7 F Temp Source Oral Pulse Oximetry (%) 98 Oxygen Delivery Method Room Air Intake Visit Reasons: [facility] [place] 07/15 RSV+, SOB Chemical Applicator Required: No Accompanied by: Self / Same As Patient Allergies Sulfa (Sulfonamide Antibiotics) Allergy (Intermediate, Verified 07/31/24 09:11) Swollen red eyes cefuroxime Adverse Reaction (Intermediate, Uncoded 07/31/24 09:11) Stomach Upset Medication List - Last Reconciled 07/31/24 by RAYNA Goode amoxicillin 500 mg PO Q8H apixaban (Eliquis) 5 mg PO BID benzonatate 100 mg PO BID-TID PRN cholecalciferol (vitamin D3) 50 mcg PO DAILY 90 days dronedarone (Multaq) 400 mg PO BID prednisone 60 mg (3 x 20 mg) PO DAILY rosuvastatin (Crestor) 40 mg PO DAILY Tobacco use date assessed: 07/31/24 Fall risk assessment: No Falls in past year Last assessed Fall Risk: 07/31/24 Dental Screening Dental Screen Date: 07/31/24 Did you have a dental visit in the last 12 months?: Yes Did you have a dental problem in the last 6 months where you did not have access to dental care?: No Was dental information given to patient?: Patient has dentist HPI [facility] [place] 07/15 RSV+, SOB HPI Details The patient is a 73-year-old female with past medical history of cardiac pacemaker in-situ, atrial fibrillation with rapid ventricular response, pain and swelling of left lower legs, exertional dyspnea, allergic rhinitis, pure hypercholesteremia, osteoarthritis, vitamin-D deficiency, age-related osteoporosis Patient of Dr. Peterson, was last seen on 06/12/24 in the office Patient is presenting today post ER visit for known RSV infection The patient reported in the ER that she started to get better but her symptoms have gotten worse over the past week She reported to the ER that she has shortness of Breath with ambulation and a cough The patient had chest x-ray and repeat swabs for COVID flu and RSV which were all negative Acute bronchitis was suspected This is presenting today we will complains a sinus drip trigger in her cough She reports that the cough is worse during the daytime-she does not have trouble sleeping at night She reports some chest tightness when she is having trouble breathing, which resolves with relaxing She denies chest pain, denies heart palpitation, denies dizziness, she denies sore throat, denies body aches Patient reports having seasonal allergies but has been good this year. [facility] Medical History Cardiac pacemaker in situ Visit for wound check Dizziness GERD (gastroesophageal reflux disease) Sick sinus syndrome Atrial fibrillation with rapid ventricular response Atrial fibrillation History of transesophageal echocardiography (ELIGIO) Left atrial dilatation Orthostatic lightheadedness Pain and swelling of left lower leg Exertional dyspnea Swelling of joint of left hand Pain in joint of left hand Overweight (BMI 25.0-29.9) Allergic rhinitis Pure hypercholesterolemia Osteoarthritis Dyslipidemia Vitamin D deficiency Age related osteoporosis Surgical History History of permanent cardiac pacemaker placement (~09/01/23) Status post cardiac catheterization History of cardiac cath Hx of cataract removal with insertion of prosthetic lens (~12/2014) Hx of section Family History Mother Prediabetes Hyperlipidemia Hypertension Father No problems noted. Social History Household Members: Spouse Housing: House Do you presently have visiting nurse or other home services: No Alcohol intake: current Alcohol intake frequency: does not drink Patient Tobacco Use Status: Never used Tobacco e-Cigarette/Vaping Use: Never Used Second Hand Smoke Exposure: Yes service: No Current occupational status: retired Cognitive needs: No Hearing needs: Yes Vision needs: No Questionnaire PHQ-9 Over the last 2 weeks, how often have you been bothered by any of the following problems? 1. Little interest or pleasure in doing things: not at all 2. Feeling down, depressed, or hopeless: not at all 3. Trouble falling or staying asleep, or sleeping too much: not at all 4. Feeling tired or having little energy: not at all 5. Poor appetite or overeating: not at all 6. Feeling bad about yourself - or that you are a failure or have let yourself or your family down: not at all 7. Trouble concentrating on things, such as reading the newspaper or watching television: not at all 8. Moving or speaking so slowly that other people could have noticed. Or the opposite - being so fidgety or restless that you have been moving around a lot more than usual: not at all 9. Thoughts that you would be better off or of hurting yourself in some way: not at all Total score: 0 Depression Screening Interpretation: Negative Depression Screening Done: Yes 65769 - PHQ-9 Billing: Yes Source: Developed by Drs. Al Amato, Nathaly Allison, Yvan Wu and colleagues, with an educational mindy from [employer]. Thrive Questionnaire Date Thrive assessed: 07/31/24 I am a: Patient What is your living situation today?: I have a steady place to live Within the past 12 months, did the food you bought not last and you didn't have the money to get more?: Never true Within the past 12 months, did you worry whether your food would run out before you got money to buy more?: Never true Do you have trouble paying for medicines?: No Do you have trouble getting transportation to medical appointments?: No Do you have trouble paying your heating and electricity bill?: No Do you have trouble taking care of your child, family member or friend?: No Do you have trouble with day-to-day activities such as bathing, preparing meals, shopping, managing finances, etc.?: No Are you currently unemployed and looking for a job?: No Are you interested in more education?: No Please select the resources that you would like help with: None Currently or been in a relationship where the following occur: No concerns reported THRIVE Score: 0 AUDIT C Alcohol Use Questionnaire (AUDIT-C) 1. How often do you have a drink containing alcohol?: Monthly or less 2. How many drinks containing alcohol do you have on a typical day when you are drinking?: 1 or 2 3. How often do you have six or more drinks on one occasion?: Never Total Score: 1 Score Reviewed/Action Taken: Yes KEYON-7 AMB Questionnaire KEYON-7 Date KEYON - 7 assessed: 07/31/24 Feeling nervous, anxious, or on edge: 0 = Not at all Not being able to stop or control worryin = Not at all Worrying too much about different things: 0 = Not at all Trouble relaxin = Not at all Being so restless that it is hard to sit still: 0 = Not at all Becoming easily annoyed or irritable: 0 = Not at all Feeling afraid as if something awful might happen: 0 = Not at all Total KEYON-7 score (0-4 normal; 5-9 mild; 10-14 moderate; 15-21 severe): 0 Source: Developed by Drs. Al Amato, Nathaly Allison, Yvan Wu and colleagues, with an educational mindy from [employer]. KEYON-7 Assessment Billing KEYON-7 Assessment Tool: KEYON-7 Assessment 29406 Review of Systems Const Details: Denies chills, Denies fatigue, Denies fever(s), Denies headache(s) and Denies weakness HEENT Denies change in vision, Denies dizziness, Denies headache(s), Denies hearing loss, Denies nasal congestion (reports it does not feel congested but does drip in the back of her throat), Denies sinus pain, Denies sinus pressure and Denies sore throat Card Denies chest pain, Denies lightheadedness, Denies other (palpitations) Resp Occasional cough during daytime after post sinus drip, + mild dyspnea and Denies wheezing GI Denies abdominal pain, Denies melena, Denies hematochezia, Denies change in bowel habits, Denies dyspepsia and Denies nausea Denies hematuria and Denies dysuria Psych Denies anxiety, Denies depression and Denies memory loss Endo Denies cold intolerance, Denies fatigue, Denies heat intolerance, Denies polydipsia and Denies polyuria Adelso/Lymph Denies easy bleeding and Denies easy bruising Aller/Immun Denies wheezing Physical exam (Primary Care) Vital Signs: Last Vital Signs Temp 97.7 F 07/31/24 08:49 Pulse 62 07/31/24 08:49 BP 110/62 07/31/24 08:49 Pulse Ox 98 07/31/24 08:49 Oxygen Delivery Method Room Air 07/31/24 08:49 BMI result Body Mass Index 24.3 Tobacco/Smoking Status: Tobacco use Status Tobacco use date assessed 07/31/24 07/31/24 08:53 Patient Tobacco Use Status Never used Tobacco 07/31/24 08:53 e-Cigarette/Vaping Use Never Used 07/31/24 08:53 PHQ-9: PHQ-9 Score PHQ-9: Total score 0 08/01/24 07:59 Depression Screening Interpretation: Negative Thrive Assessment: Date of Thrive Assessment Date Thrive assessed 07/31/24 07/31/24 08:53 Currently or been in a relationship where the following occur: No concerns reported Const Other: General: no acute distress, well developed, alert and awake Nutritional Appearance: well nourished Orientation/consciousness: patient oriented x3 HENMT Head: Yes normocephalic and Yes atraumatic Ears: hearing grossly normal bilaterally and TM's normal bilaterally General nose exam: Bilateral nares with edema and erythema, turbinates boggy, yellowish exudate in right nare Mouth: Normal oral and palatal mucosa present and moist mucous membranes Eyes Pupils: Equal, round and reactive pupils present and Pupil accommodation reflex normal EOM: EOMs intact bilaterally Neck Neck: Yes normal visual inspection, Yes no lymphadenopathy and Yes trachea midline Thyroid: Thyroid normal Carotids: no bruits Lymphatic: no lymphadenopathy noted Chest Chest palpation & inspection: normal inspection of the chest Resp Effort & Inspection: normal respiratory effort Auscultation: clear to auscultation bilaterally Cardio Rate: regular rate Rhythm: regular rhythm Heart sounds: S1 normal heart sound present, S2 normal heart sound present, no gallops, no murmurs and no rubs Pacemaker GI Palpation (GI): No Abdominal aortic bruit present, Soft to palpation, nontender, No hepatosplenomegaly present and No Rebound tenderness present Auscultation: normal bowel sounds General: Yes no CVA tenderness Skin General: warm and dry. Normal skin color. Normal skin turgor Lesions: no lesions Nails: normal Neuro General: patient oriented x3, gait normal Cranial nerves: Yes Equal, round and reactive pupils present Cognition (Neuro): normal cognition Gait exam (Neuro): Normal gait present Extrem General: Yes normal to inspection, No edema and No calf tenderness Psych Appearance: grossly normal Affect: normal affect Attitude: cooperative Thought process: Normal thought process present Coding Level of Care Code Est Pt Level 3 (93967) Diagnoses SOB (shortness of breath) on exertion R06.02 Subacute cough R05.2 Cough type: subacute Postnasal drip R09.82 Allergic rhinitis, unspecified seasonality, unspecified trigger J30.9 Allergic rhinitis seasonality: unspecified Allergic rhinitis trigger: unspecified Additional Codes KEYON-7 Assessment Billing - KEYON-7 Assessment Tool: KEYON-7 Assessment 31159 ([id number]) PHQ-9 - 21271 - PHQ-9 Billing: Yes ([id number]) Time Spent (min) 29 Assessment & Plan Assessment & Plan (1) SOB (shortness of breath) on exertion: Code(s): R06.02 - Shortness of breath Category: Medical Plan: (+) RSV a few weeks ago Albuterol rescue inhaler ordered (2) Cough: Code(s): R05.9 - Cough, unspecified Category: Medical Qualifiers: Cough type: subacute Qualified Code(s): R05.2 - Subacute cough Plan: Continue benzonatate 100 mg b.i.d. p.r.n. Encouraged fluids intake (3) Postnasal drip: Code(s): R09.82 - Postnasal drip Category: Medical Plan: Flonase nose spray ordered Loratadine 10 mg daily ordered (4) Allergic rhinitis: Comment: Very mild, seasonal Code(s): J30.9 - Allergic rhinitis, unspecified Category: Medical Qualifiers: Allergic rhinitis seasonality: unspecified Allergic rhinitis trigger: unspecified Qualified Code(s): J30.9 - Allergic rhinitis, unspecified Plan: Flonase nose spray ordered Loratadine 10 mg daily ordered Plan Follow up as scheduled in November 2024 with PCP Medications: New fluticasone propionate 50 mcg/actuation administer into each nostril 1 spray intranasal BID 16 grams 0RF albuterol sulfate 90 mcg/actuation 1 inh inhalation QID PRN 6.7 grams 3RF shortness of breath or wheezing loratadine (Allergy Relief (loratadine)) 10 mg PO DAILY 30 tabs 0RF
--- OUTSIDE RECORDS SUMMARY | 2024-07-31 11:37 | XMS_ITS | Encounter Summary ---
Author Organization [facility]ly [facility] Address [address] [place] [address] Care Team Providers Care Instrument Shop Supervisor Name Role Phone Unknown Primary Care Provider [phone] Encounter Details Date Type Department Care Team (Late st Contact Info) Description 12/31/2023 Scanned Document [address] [place] [id number] Radiology, Scan Social History Tobacco Use Types Packs/Day Years Used Date Smoking Tobacco: Never Assessed Sex and Gender Information Value Date Recorded Sex Assigned at Female 12/31/2023 8:20 AM EDT Gender Identity Female 12/17/2023 3:08 PM EDT Sexual Orientation Heterosexual (straight) 12/30 8:20 AM EDT documented as of this encounter Plan of Treatment Not on file documented as of this encounter Procedures Procedure Name Priority Date/Time Associated Diagnosis Comments LAB RESULT 12/31/2023 documented in this encounter Results * LAB RESULT (12/31/2023) Scan Radiology HX AMB PROCEDURES documented in this encounter Visit Diagnoses Not on filedocumented in this encounter Care Teams Instrument Shop Supervisor Relationship Specialty Start Date End Date Unknown Unknow Provider Address PCP - General 12/17/23 documented as of this encounter
--- OUTSIDE RECORDS SUMMARY | 2024-07-31 11:37 | XMS_ITS | Data Portability ---
Author Organization [place] - [facility], Allergy Address [address] [place] [phone] Care Team Providers Care Chemical Packager Name Role Phone IRMA INTERIANO Primary Care Provider Assessment No assessment recorded. Plan of Treatment Reminders Order Date Submit Date Provider Last Modified By Organization Details Last Modified Time Details Appointments None record ed. Lab None record ed. Referral None record ed. Procedures None record ed. Surgeries None record ed. Imaging None record ed. Medication Orders None record ed. Patient TargetsNo targets recorded. Patient InstructionsNo instructions recorded. Reason for Referral None Reported. Problems Name Problem SNOMED Code Status Onset Date Resolution Date Notes Provider Name and Address Organization Details Recorded Time Acute sialoadenitis [id number] Active 2023 KIESHA SAXENA MD [address] [place] [address], [phone], [facility] 06:57:32 Problem Notes None recorded. Procedures Surgical History Date Name Laterality Status Provider Name and Address Organization Details Recorded Time cardiac pacemaker procedure completed KIESHA SAXENA MD [address] [place] [address], [phone], [facility] 06/15/2024 06:55:47 Imaging Results None recorded. Procedure Notes None recorded. Medical Equipment None Reported. Allergies No known drug allergies Medications Name Sig Start Date Stop Date Status Note LastModified by Organization Details LastModified Time lorazepam 0.5 mg tablet 0.5 MG ORALLY 3 TIMES A DAY NEEDED FOR ANXIETY FOR 10 DAYS 06/13 completed Not Available Not Available Not Available benzonatate 100 mg capsule TAKE 1 CAPSULE ORALLY 2 TIMES A DAY NEEDED FOR COUGH FOR 10 DAYS 06/13 completed Not Available Not Available Not Available pantoprazol e 40 mg tablet,paul yed release TAKE 1 TABLET BY MOUTH DAILY FOR 90 DAYS 06/13 completed Not Available Not Available Not Available flecainide 50 mg tablet TAKE 1 TABLET ORALLY EVERY 12 HOURS 06/13 completed Not Available Not Available Not Available metoprolol tartrate 50 mg tablet TAKE 1 TABLET BY MOUTH TWICE A DAY 06/13 completed Not Available Not Available Not Available sertraline 25 mg tablet TAKE 1 TABLET BY MOUTH EVERY DAY 06/13 completed Not Available Not Available Not Available metoprolol succinate ER 25 mg tablet,exte nded release 24 hr TAKE 1 TABLET BY MOUTH DAILY 06/13 completed Not Available Not Available Not Available fluticasone propionate 50 mcg/actuati on nasal spray,suspe nsion PUT 2 SPRAYS INTO EACH NOSTRIL DAILY NEEDED FOR NASAL CONGESTIO N FOR 30 DAYS active Not Available Not Available No t Available amoxicillin 875 mg-potassiu m clavulanate 125 mg tablet TAKE 1 TABLET BY MOUTH TWICE A DAY active Not Available Not Available No t Available rosuvastati n 40 mg tablet TAKE 1 TABLET BY MOUTH EVERY DAY active Not Available Not Available No t Available metoprolol tartrate 25 mg tablet TAKE 1 TABLET ORALLY 2 TIMES A DAY 06/13 completed Not Available Not Available Not Available cholecalcif haley (vitamin D3) 50 mcg (2,000 unit) capsule TAKE 1 CAPSULE BY MOUTH DAILY active Not Available Not Available No t Available Multaq 400 mg tablet TAKE 1 TABLET BY MOUTH TWICE A DAY active Not Available Not Available No t Available Eliquis 5 mg tablet TAKE 1 TABLET BY MOUTH TWICE A DAY active Not Available Not Available No t Available Vitals Date Recorded Body height Body mass index (BMI) Body weight Provider Name and Address Organization Details Last Updated DateTime 06/13/2024 157.48 cm 24.8 kg/m2 00941.77 g Veronica Pate [place] - [facility] 06/13/2024 09:38:09 Social History None recorded. Functional Status None recorded. Mental Status None recorded. Family History Nothing Reported. Medical History Condition Response Heart Problems Y Hyperlipidemia Y Gynecological HistoryNo gynecological history recorded. Obstetrics History GPAL:G 0 P 0 0 0 0 Past Encounters Encounter ID Performer Location Encounter Start Date Encounter Closed Date Diagnosis/Indication Diagnosis SNOMED-CT Code Diagnosis ICD10 Code Diagnosis Note [id number] KIESHA SAXENA MD [facility] [address] [phone] 06/13/2024 09:18:56 06/13/2024 15:51:27 Acute sialoadenitis 939330896 K11.21 73-year-ol d female presents today for assessment after being seen in the [facility] emergency department for acute left-sided facial swelling. This seemed to be preceded by allergy symptoms. She has been on antibiotic s and feels much improved. She had a CT [place] [facility] showing a 2 cm phlegmon versus abscess in the inferior deep left parotid gland, prominent lingual tonsils. On exam today, I see clear saliva from both Stensen's and Addy's ducts. There is very minimal fullness in left level 2B. There is no tenderness .CT findings given improvemen t with antibiotic s is consistent with acute sialoadeni tis. I have recommende d continued salivary gland precaution s especially as she had an episode on the right previously . Follow up for new or worsening symptoms. Health Concerns Section Related Observation LastModified by Organization Detai ls LastModified Time None Recorded Concern Status LastModified by Organization Details LastModified Time None Recorded Advance Directives Directive None Recorded Payers Encounter Date Sequence Insurance Name Policy Number Policy Conti Covered Member ID Conti Member ID Guarantor Name 06/13/2024 1 [facility] (MEDICARE REPLACEMENT/ ADVANTAGE - PPO) [id number] 1 Yaritza Reich [id number] Yaritza Reich Notes Date Note Type Note Provider Name and Address Organization Details Recorded Time 06/13/2024 text/html 73 yo F with sialoadenitis. Finishing abx in 3 days, feels much better Initial symptoms included stuffy nose, watery eyes, felt a little tender, went to [facility] walk in, thought allergy related, next morning, then went to ER Has been on flonase for allergies, previously on allergy shots, going to set up repeat testing No trouble swallowing or sore throatNo ear pain once 4 years ago had some swelling on the right, felt like a blockage then went away She had a CT scan at [facility] showing a 2 cm phlegmon versus abscess in the inferior deep left parotid gland, prominent lingual tonsils. KIESHA SAXENA MD [address] [place] [address], [place], [phone], [facility] - [facility] 06/15/2024 07:00:44 OBGyn Episode No OBEpisode recorded.
--- OUTSIDE RECORDS SUMMARY | 2024-07-31 11:38 | XMS_ITS | Clinical Summary ---
Author Organization [facility] Address [address] [place] [address] Care Team Providers Care Belt Sander Stone Name Role Phone Unknown Primary Care Provider [phone] Allergies No known active allergies Social History Tobacco Use Types Packs/Day Years Used Date Smoking Tobacco: Never Assessed Sex and Gender Information Value Date Recorded Sex Assigned at Female 12/31/2023 8:20 AM EDT Gender Identity Female 12/17/2023 3:08 PM EDT Sexual Orientation Heterosexual (straight) 12/30 8:20 AM EDT Last Filed Vital Signs Vital Sign Reading Time Taken Comments Blood Pressure 165/74 12/31/2023 8:38 AM EDT Pulse 64 12/31/2023 8:38 AM EDT Temperature - - Respiratory Rate 15 12/31/2023 8:38 AM EDT Oxygen Saturation 98% 12/31/2023 8:38 AM EDT Inhaled Oxygen Concentration - - Weight - - Height - - Body Mass Index - - Plan of Treatment Health Maintenance Due Date Last Done Comments Hepatitis C Virus Screening 1948 DTaP/Tdap/Td Vaccines (1 - Tdap) 12/09/1967 Mammogram 1988 Colonoscopy 1993 Pneumococcal Vaccines 50+ (1 of 1 - PCV) 1998 Zoster (Shingles) Vaccine (1 of 2) 1998 DXA Bone Density (Females,Ages 65 and older) 2013 RSV Vaccine 60 years and older and Patients (1 - 1-dose 75+ series) 12/09/2023 Influenza Vaccine 01/31/2024 COVID-19 Vaccine ( - 2023-2 5 season) 2024 09/26/2020, 08/29/2020 Hepatitis B Vaccines Aged Out No long er eligible based on patient's age to complete this topic Care Teams Belt Sander Stone Relationship Specialty Start Date End Date Unknown Unknow Provider Address PCP - General 12/17/23
== END 2024-07-31 09:31 | disposition home or self-care (01) ==
PROVIDERS: PCP Internal Medicine
DX: R06.02 Shortness of breath (principal); R05.2 Subacute cough; R09.82 Postnasal drip; J30.9 Allergic rhinitis, unspecified

== ENCOUNTER → 2024-07-31 08:48 | Outpatient (BNVA) | payer MEDICARE, SELFPAY | PROVIDERS: PCP Internal Medicine | DX: R06.02 Shortness of breath (principal); R05.2 Subacute cough; R09.82 Postnasal drip; J30.9 Allergic rhinitis, unspecified | CPT/HCPCS: 96127; 99212 ==

== ENCOUNTER 2024-08-19 15:23 | Outpatient (AMB) | payer MEDICARE, SELFPAY ==
--- NOTE | 2024-08-19 15:28 | MHC.OFFVIS ---
Vital Signs 08/19/24 15:29 Height 5 ft 2 in Weight 138 lb 14.259 oz BMI 25.4 BP 140/60 H Blood Pressure Location Lt brachial Position Sitting Pulse 60 Pulse Source Pulse Oximeter Pulse Oximetry (%) 100 Oxygen Delivery Method Room Air Intake Visit Reasons: COPD Intake Note: pt is here for sick visit for shortness of breath since she had RSV in July, and is now having short of breath with stairs and exertion. was put on claritin and flonase. Automotive Starter Repairer Required: No Allergies Sulfa (Sulfonamide Antibiotics) Allergy (Intermediate, Verified 08/19/24 16:22) Swollen red eyes cefuroxime Adverse Reaction (Intermediate, Uncoded 08/19/24 16:22) Stomach Upset Medication List - Last Reconciled 08/19/24 by Fela England MD albuterol sulfate 90 mcg/actuation 1 inh inhalation QID PRN apixaban (Eliquis) 5 mg PO BID benzonatate 100 mg PO BID-TID PRN cholecalciferol (vitamin D3) 50 mcg PO DAILY 90 days dronedarone (Multaq) 400 mg PO BID fluticasone propionate 50 mcg/actuation 1 spray intranasal BID loratadine (Allergy Relief (loratadine)) 10 mg PO DAILY rosuvastatin (Crestor) 40 mg PO DAILY Do you need a note to return to daycare/school/sports/work: No HPI HPI COPD: Details: THIS 73 YEARS OLD VERY PLEASANT FEMALE IS COMING TO SEE ME AFTER MORE THAN 4 YEARS. BACK IN 2020 . SHE HAD COME TO SEE ME FOR COUGH AND SHORTNESS OF BREATH, WORKUP AT THAT TIME WAS ESSENTIALLY NORMAL. SHE WAS DOING OKAY BUT ABOUT 4 WEEKS AGO SHE SUFFERED FROM COLD SYMPTOMS, SHE HAD COUGH, AND SOME CHEST CONGESTION. SEEN IN THE EMERGENCY ROOM ON 07/15/2024 . SHE WAS TOLD TO HAVE RSV INFECTION. TREATED WITH PREDNISONE 30 MG B.I.D. FOR 3 DAYS,, AND ALSO BENZONATATE PERLES B.I.D. TO CONTROL COUGH. WITHIN ABOUT, 1 WEEK COUGH DISSIPATED SHE COMES TO SEE ME BECAUSE SHE HAS DEVELOPED INCREASED SHORTNESS OF BREATH ON WALKING UP HILL OR CLIMBING 1 FLIGHT OF STAIRS. AT HOME SHE HAS TO GO DOWN TO BASEMENT A FEW TIMES EVERY DAY. AT PRESENT SHE DENIES ANY COUGH OR WHEEZING. SHE HAS MILD NASAL CONGESTION WHICH IS EASILY CONTROLLED WITH USE OF FLONASE, SHE DOES HAVE CARDIAC DISEASE WITH PAROXYSMAL ATRIAL FIBRILLATION, AND HAS HAD A DEMAND PACEMAKER PLACED. [facility] Medical History Cardiac pacemaker in situ Visit for wound check Dizziness GERD (gastroesophageal reflux disease) Sick sinus syndrome Atrial fibrillation with rapid ventricular response Atrial fibrillation History of transesophageal echocardiography (ELIGIO) Left atrial dilatation Orthostatic lightheadedness Pain and swelling of left lower leg Exertional dyspnea Swelling of joint of left hand Pain in joint of left hand Overweight (BMI 25.0-29.9) Allergic rhinitis Pure hypercholesterolemia Osteoarthritis Dyslipidemia Vitamin D deficiency Age related osteoporosis Surgical History History of permanent cardiac pacemaker placement (~09/01/23) Status post cardiac catheterization History of cardiac cath Hx of cataract removal with insertion of prosthetic lens (~12/2014) Hx of section Family History Mother Prediabetes Hyperlipidemia Hypertension Father No problems noted. Social History Household Members: Spouse Housing: House Do you presently have visiting nurse or other home services: No Alcohol intake: current Alcohol intake frequency: does not drink Patient Tobacco Use Status: Never used Tobacco e-Cigarette/Vaping Use: Never Used Second Hand Smoke Exposure: Yes service: No Current occupational status: retired Cognitive needs: No Hearing needs: Yes Vision needs: No Review of Systems Const All systems reviewed & are unremarkable except as noted in HPI and below Eyes Reports no additional complaints ENT Reports no additional complaints Card Reports dyspnea on exertion Resp Reports as per HPI and Reports dyspnea on exertion GI Reports no additional complaints Reports no additional complaints Musc Reports no additional complaints Skin/Breast Reports system reviewed and no additional complaints, except as documented Neuro Reports no additional complaints Psych Reports no additional complaints Physical Exam Vital Signs: Last Vital Signs Pulse 60 08/19/24 15:29 BP 140/60 H 08/19/24 15:29 Pulse Ox 100 08/19/24 15:29 Oxygen Delivery Method Room Air 08/19/24 15:29 BMI result Body Mass Index 25.4 Const General: healthy appearing, comfortable, no acute distress, alert and awake Orientation/consciousness: patient oriented x3 HEENT Head: Yes normal to inspection General nose exam: No nasal polyps present and No nasal discharge present Face and sinus: Yes sinuses nontender Mouth: oropharynx normal Throat: Yes posterior oropharynx normal Eyes General: appearance normal, both eyes and all related structures Neck Neck: Yes normal visual inspection, Yes no lymphadenopathy, Yes trachea midline and Yes no JVD Thyroid: Thyroid normal Chest Chest palpation & inspection: normal inspection of the chest, normal palpation of entire chest wall and no tenderness Resp Effort & Inspection: normal respiratory effort Auscultation: no crackles, no rhonchi and no wheezes Cardio Palpation: normal PMI Rate: regular rate Rhythm: regular rhythm Heart sounds: no gallops and no murmurs Peripheral pulses: Peripheral pulses 2+ throughout GI Palpation (GI): Soft to palpation, nontender, No hepatosplenomegaly present and no masses Auscultation: normal bowel sounds Back/Spine/Pelvis Thoracic/Lumbar Spine: thoracic and lumbar spine normal to inspection Skin General skin exam: no rashes or lesions noted Neuro General: patient oriented x3 and no focal motor deficits Cranial nerves: Yes CN's II-XII intact bilaterally Extrem General: Yes normal to inspection, Yes no clubbing, cyanosis or edema and Yes no calf tenderness Psych Appearance: grossly normal and well kempt Speech and movement: Normal speech and movement present Results Reviewed Results Reviewed: CHEST X-RAY OF 07/15/2024 . REVIEWED SHE HAS A PACE MAKER PLACE NO DEFINITE. CONGESTIVE HEART FAILURE SLIGHT INCREASE IN BRONCHOVASCULAR MARKINGS IN THE LOWER LOBES. Assessment & Plan Assessment & Plan (1) Exertional dyspnea: Comment: Dyspnea on exertion is only when she goes outdoors or walks fast, or tries to climb stairs in a hurry. It is nonspecific and may be due to some degree of deconditioning after the recent RSV infection . PFT in 2020 showed Mild small airway obstructive disorder, without much response to bronchodilator therapy. This may be due to some degree of pulmonary emphysema. Code(s): R06.00 - Dyspnea, unspecified Category: Medical Plan: I reassured her, that the amount of dyspnea on exertion, is expected after a recent viral infection, and would improve in the next few weeks. GIVEN HER INCENTIVE SPIROMETRY DEVICE FROM THE OFFICE AND ADVISED HER TO DO DEEP BREATHING EXERCISES, Q.2 HOURS WHILE AWAKE. DISCUSSED POSSIBILITY OF DOING PULMONARY FUNCTION TEST GAIN AND ALSO DOING A CT SCAN OF THE LUNGS TO CHECK FOR POSSIBLE INTERSTITIAL LUNG DISEASE. BUT TO SHE WOULD LIKE TO WAIT 4-6 WEEKS , DO BREATHING EXERCISES DURING THAT TIME, AND THEN IF SIGNIFICANT DYSPNEA PERSISTS, PROCEED FOR THE TEST. (2) Allergic rhinitis: Comment: Very mild, seasonal, controlled . Code(s): J30.9 - Allergic rhinitis, unspecified Category: Medical Qualifiers: Allergic rhinitis trigger: unspecified Allergic rhinitis seasonality: unspecified Qualified Code(s): J30.9 - Allergic rhinitis, unspecified Plan: May use Flonase 1 spray in each nostril b.i.d. p.r.n. May take loratadine 10 mg once a day p.r.n.. Coding Level of Care Code Est Pt Level 3 (73324) Diagnoses Exertional dyspnea R06.00 Allergic rhinitis, unspecified seasonality, unspecified trigger J30.9 Allergic rhinitis trigger: unspecified Allergic rhinitis seasonality: unspecified
[2024-08-19 15:29] VITALS: BP 140/60; PULSE 60; O2SAT 100; BMI 25.4
--- OUTSIDE RECORDS SUMMARY | 2024-08-19 16:14 | XMS_ITS | Encounter Summary ---
Author Organization [facility] Address [address] [place] [address] Care Team Providers Care Bow Maker Machine Tender Name Role Phone Unknown Primary Care Provider [phone] Encounter Details Date Type Department Care Team (Late st Contact Info) Description 12/31/2023 Scanned Document [address] [place] [phone] Radiology, Scan Social History Tobacco Use [...] on filedocumented in this encounter Care Teams Bow Maker Machine Tender Relationship Specialty Start Date End Date Unknown Unknow Provider Address PCP - General 12/17/23 documented as of this encounter
--- OUTSIDE RECORDS SUMMARY | 2024-08-19 16:14 | XMS_ITS | Clinical Summary ---
Author Organization [facility] Address [address] [place] [address] Care Team Providers Care Sugar Coating Hand Name Role Phone Unknown Primary Care Provider [phone] Allergies No known active allergies Social History [...] age to complete this topic Care Teams Sugar Coating Hand Relationship Specialty Start Date End Date Unknown Unknow Provider Address PCP - General 12/17/23
== END 2024-08-19 16:00 | disposition home or self-care (01) ==
PROVIDERS: PCP Internal Medicine; Visit Provider Internal Medicine
DX: R06.00 Dyspnea, unspecified (principal); J30.9 Allergic rhinitis, unspecified
CPT/HCPCS: 99213

== ENCOUNTER → 2024-08-19 15:23 | Outpatient (BNVA) | payer MEDICARE, SELFPAY | PROVIDERS: PCP Internal Medicine; Visit Provider Internal Medicine | DX: J30.9 Allergic rhinitis, unspecified (principal); R06.00 Dyspnea, unspecified | CPT/HCPCS: 99212 ==

== ENCOUNTER 2024-09-16 08:28 | Inpatient (IN) | payer MEDICARE, SELFPAY ==
[2024-09-16] VITALS (12 sets, daily range): BP systolic 127–161; BP diastolic 41–88; PULSE 60–77; RESP 18–19; TEMP 36.5–37.1; O2SAT 97–100; BMI 27.6; BMI 27.5
--- NOTE | ~2024-09-16 | XR_ITS ---
EXAMINATION: XR CHEST CLINICAL INFORMATION: cp COMPARISON: July 15, 2024. TECHNIQUE: Frontal view of the chest was obtained. FINDINGS: Hyperinflated lungs. Pulmonary reticular pattern. No gross consolidation, pleural effusion or pneumothorax. Cardiomediastinal silhouette is prominent. There is a round opacity overlapping the lower heart silhouette. Left-sided pacemaker with 2 intact electrode leads in likely right heart chambers. Multilevel thoracic spondylosis with a shaped curvature. Degenerative changes in the acromioclavicular joints. XR/XR chest 1V IMPRESSION: Chronic interstitial lung disease. Hiatal hernia, moderate to large volume. Cardiomegaly, mild. Electronically signed by: Albert Quiroz MD 09/16/2024 09:32 AM EDT
--- NOTE | 2024-09-16 09:06 | PC.NURSE ---
Patient reporting dark stools daily since sunday, sob, weakness, fatigue, and tingling in feet. on eliquis , pacemaker placed at [facility]. Mucus membranes moist but pale.
--- NOTE | 2024-09-16 09:08 | ECG_ITS ---
Test Reason : SOB Blood Pressure : */* mmHG Vent. Rate : 60 BPM Atrial Rate : 60 BPM P-R Int : 202 ms QRS Dur : 130 ms QT Int : 456 ms P-R-T Axes : * 38 12 degrees QTcB Int : 456 ms Atrial-paced rhythm Right bundle branch block Abnormal ECG When compared with ECG of 04-Jan-2024 13:59, No significant change was found Referred By: Steffanie Tilley Electronically Signed By: Max Barclay
--- NOTE | 2024-09-16 09:11 | ED_ITS ---
HPI - General Adult General Chief complaint: General Medical Stated complaint: Weakness, SOB, nausea Time Seen by Provider: 09/16/24 08:42 History of Present Illness HPI narrative: Patient is a 73-year-old female with a history of atrial fibrillation baseline is on Eliquis took her Eliquis this morning also has a history of having a pacemaker presented today with having generalized malaise weakness. More short of breath when she walks up the stairs. There was no chest pain. Patient has been feeling generalized malaise. He does not drink alcohol but she felt her stool was black. Patient does not drink alcohol. There is no history of any NSAID use. Only takes Tylenol. History of reflux. Patient is from home. Related Data Previous Rx's ?Medication ?Instructions ?Recorded cholecalciferol (vitamin D3) 50 50 mcg PO DAILY 90 days #90 caps 02/08/24 mcg (2,000 unit) capsule rosuvastatin 40 mg tablet (Crestor) 40 mg PO DAILY #90 tabs 03/31/24 benzonatate 100 mg capsule 100 mg PO BID-TID PRN cough #30 07/07/24 caps albuterol sulfate 90 mcg/actuation 1 inh inhalation QID PRN shortness 07/31/24 aerosol inhaler of breath or wheezing #6.7 grams loratadine 10 mg tablet (Allergy 10 mg PO DAILY #30 tabs 07/31/24 Relief (loratadine)) apixaban 5 mg tablet (Eliquis) 5 mg PO BID #180 tabs 08/05/24 fluticasone propionate 50 1 spray intranasal BID #48 mL 08/22/24 mcg/actuation nasal spray,suspension Multaq 400 mg tablet (dronedarone) 400 mg PO BID #60 tabs 09/02/24 Allergies Allergy/AdvReac Type Severity Reaction Status Date / Time Sulfa (Sulfonamide Allergy Intermediate Swollen Verified 09/16/24 08:48 Antibiotics) red eyes cefuroxime AdvReac Intermediate Stomach Uncoded 09/16/24 08:48 Upset Review of Systems 2 Review of Systems: Positive generalized malaise weakness Positive shortness of breath on exertion Yes all other systems are reviewed and are negative PMFSH Past Medical History Attestation statement: The following information was validated with the patient. Medical History Cardiac pacemaker in situ Visit for wound check Dizziness GERD (gastroesophageal reflux disease) Sick sinus syndrome Atrial fibrillation with rapid ventricular response Atrial fibrillation History of transesophageal echocardiography (ELIGIO) Left atrial dilatation Orthostatic lightheadedness Pain and swelling of left lower leg Exertional dyspnea Swelling of joint of left hand Pain in joint of left hand Overweight (BMI 25.0-29.9) Allergic rhinitis Pure hypercholesterolemia Osteoarthritis Dyslipidemia Vitamin D deficiency Age related osteoporosis Surgical History History of permanent cardiac pacemaker placement (~09/01/23) Status post cardiac catheterization History of cardiac cath Hx of cataract removal with insertion of prosthetic lens (~12/2014) Hx of section Family History Family History Mother Prediabetes Hyperlipidemia Hypertension Father No problems noted. Social History Social History Household Members: Spouse Housing: House Do you presently have visiting nurse or other home services: No Alcohol intake: former Patient Tobacco Use Status: Never used Tobacco Smoked in Last 30 Days: No e-Cigarette/Vaping Use: Never Used Second Hand Smoke Exposure: Yes Use of substances other than those prescribed or required for medical reasons: No Advance Directives: Yes Advance Directives Information Provided: Yes Advance Directives on File: No Do you have a plan to hurt others: No Plan service: No Current occupational status: retired Cognitive needs: No Hearing needs: Yes Vision needs: No Physical Exam ED Vital Signs: Vital Signs - 24 hr 09/16/24 08:45 09/16/24 10:31 Temperature 98.2 F 98.2 F Pulse Rate 62 61 Respiratory Rate 18 18 Blood Pressure 138/51 L 142/41 H Pulse Oximetry 100 99 Oxygen Delivery Method Room Air Room Air BMI result Body Mass Index 27.6 Appearance: Alert. Oriented X3. No acute distress. Eyes: Pupils equal, round and reactive to light. ENT: Pharynx normal. Neck: Normal inspection. Neck supple. No lymph nodes noted. No crepitus CVS: Normal heart rate and rhythm. Pulses normal. Normal S1 and S2 Respiratory: No respiratory distress. Breath sounds normal. No Wheezing. No rales Abdomen: Soft and nontender. No rigidity. No distention. good BS x4 Rectal exam done black stool (done with nurse Flor present) Skin: Skin warm and dry. Normal skin color. Normal skin turgor. Extremities: No lower extremity edema. Neurovascular intact to all extremities. No Lacerations. No Rash Neuro: Oriented X 3. No motor deficit. No sensory deficit. Moving all extermities. No slurred speech Medications Administered Discontinued Medications Generic Name Dose Route Start Last Admin Trade Name Jensenq PRN Reason Stop Dose Admin Pantoprazole Sodium 80 mg 09/16/24 09:08 09/16/24 09:24 Pantoprazole Sodium 40 Mg/10 Ml Vial IVPUSH 09/16/24 09:09 80 mg ONCE ONE Administration Medical Decision Making Medical Decision Making [facility] Narrative: Positive black stool generalized malaise weakness worse with exertion symptoms consistent with having upper GI bleed. Patient's stool was black. No history of alcohol use no history of NSAID use. Nevertheless will start patient on PPIs. Patient is on Eliquis last dose of Eliquis was this morning. Patient's hemoglobin came back at less than 7. Baseline is about 11. Likely has a upper GI bleed as patient had black and melanotic stool. Symptom has been ongoing for 4 days. She took her Eliquis this morning. Risks and benefits of transfusion was explained. Patient was transfused with a unit of blood. PPI was started. There is no recent endoscopy or colonoscopy. Patient to be admitted for further evaluation and monitoring. Hospitalist consulted. My interpretation of patient's EKG showed a paced rhythm with a right bundle-branch block there is no acute ST segment elevation. Previous EKG was compared. Differential Diagnosis Differential Diagnoses: The differential diagnosis associated with the presentation includes Admission/Observation Consideration of admission/observation: Escalation of care including admission/observation considered Patient will require admission for GI bleed Consult Healthcare Provider Management of the patient was discussed with: Hospitalist Lab Data [facility] Lab Attestation statement: I reviewed the patient's lab results. 09/16/24 09:23 09/16/24 09:22 Labs: Lab Results 09/16/24 09/16/24 09/16/24 Range/Units 09:22 09:23 09:30 WBC 5.8 (4.8-10.8) X10*3/uL RBC 2.63 L D (4.20-5.50) X10*6/uL Hgb 6.6 L* D (12.0-16.0) g/dl Hct 20.4 L* D (37.0-47.0) % MCV 77.6 L (80.0-98.0) fL MCH 25.1 L (27.0-33.0) pg MCHC 32.4 (31.0-35.0) g/dl RDW 15.0 (11.0-16.0) % Plt Count 283 (160-400) X10*3/uL MPV 10.5 (9.4-12.3) fL Immature Gran % (Auto) 0.3 (0.0-0.4) % Neut % (Auto) 73.9 H (45-73) % Lymph % (Auto) 14.7 L (20-40) % [place] % (Auto) 8.7 (2-11) % Eos % (Auto) 1.7 (0-4) % Baso % (Auto) 0.7 (0-2) % Lymph # (Auto) 0.9 L (1.2-4.9) X10*3/uL [place] # (Auto) 0.5 (0.1-1.2) X10*3/uL Eos # (Auto) 0.1 (0.0-0.4) X10*3/uL Baso # (Auto) 0.0 (0.0-0.2) X10*3/uL Abs Immat Gran (auto) 0.02 (0.00-0.03) X10*3/uL Absolute Neuts (auto) 4.3 (2.0-8.3) x10*3/uL Absolute Nucleated RBC 0.000 (0.0-0.012) X10*3/uL Nucleated RBC % (auto) 0.0 (0.0-0.2) /100WBC PT 18.7 H (10.9-12.4) SEC INR 1.6 H (0.9-1.1) Sodium 139 (135-145) mmol/L Potassium 4.0 (3.3-5.1) mmol/L Chloride 111 H (96-108) mmol/L Carbon Dioxide 23 (22-29) mmol/L Anion Gap 9 L (12-20) BUN 16 (9-16) mg/dL Creatinine 0.77 (0.5-1.4) mg/dL Estim Creat Clear Calc 57.2 Estimated GFR > 60 Random Glucose 109 (60-115) mg/dL Calcium 8.5 D (8.4-10.2) mg/dL Total Bilirubin 0.2 (0.0-1.0) mg/dL Direct Bilirubin < 0.2 (0.0-0.5) mg/dL AST 29 (5-31) U/L ALT 25 (0-31) U/L Alkaline Phosphatase 55 (39-117) U/L Troponin I High Sens 9.5 D (<3.5-17.0) ng/L B-Natriuretic Peptide 98 (<100) pg/mL Total Protein 6.2 L (6.5-8.0) g/dL Albumin 3.6 (3.5-5.0) g/dL Lipase 34 (8-78) U/L Urine Color Urine Appearance Urine pH (5.0-9.0) Ur Specific [place] (1.005-1.025) Urine Protein (Neg-Trace) mg/dL Urine Glucose (UA) (Negative) mg/dL Urine Ketones (Negative) mg/dL Urine Blood (Negative) Urine Nitrite (Negative) Ur Leukocyte Esterase (Negative) Urine RBC (0-2) /HPF Urine WBC (0-5) /HPF Ur Squamous Epith Cells (0-2) /HPF Urine Bacteria (None Seen) Hyaline Casts (0-2) /LPF Stool Occult Blood POSITIVE (NEGATIVE) Blood Type O Positive Antibody Screen NEGATIVE Crossmatch See Detail 09/16/24 Range/Units 10:12 WBC (4.8-10.8) X10*3/uL RBC (4.20-5.50) X10*6/uL Hgb (12.0-16.0) g/dl Hct (37.0-47.0) % MCV (80.0-98.0) fL MCH (27.0-33.0) pg MCHC (31.0-35.0) g/dl RDW (11.0-16.0) % Plt Count (160-400) X10*3/uL MPV (9.4-12.3) fL Immature Gran % (Auto) (0.0-0.4) % Neut % (Auto) (45-73) % Lymph % (Auto) (20-40) % [place] % (Auto) (2-11) % Eos % (Auto) (0-4) % Baso % (Auto) (0-2) % Lymph # (Auto) (1.2-4.9) X10*3/uL [place] # (Auto) (0.1-1.2) X10*3/uL Eos # (Auto) (0.0-0.4) X10*3/uL Baso # (Auto) (0.0-0.2) X10*3/uL Abs Immat Gran (auto) (0.00-0.03) X10*3/uL Absolute Neuts (auto) (2.0-8.3) x10*3/uL Absolute Nucleated RBC (0.0-0.012) X10*3/uL Nucleated RBC % (auto) (0.0-0.2) /100WBC PT (10.9-12.4) SEC INR (0.9-1.1) Sodium (135-145) mmol/L Potassium (3.3-5.1) mmol/L Chloride (96-108) mmol/L Carbon Dioxide (22-29) mmol/L Anion Gap (12-20) BUN (9-16) mg/dL Creatinine (0.5-1.4) mg/dL Estim Creat Clear Calc Estimated GFR Random Glucose (60-115) mg/dL Calcium (8.4-10.2) mg/dL Total Bilirubin (0.0-1.0) mg/dL Direct Bilirubin (0.0-0.5) mg/dL AST (5-31) U/L ALT (0-31) U/L Alkaline Phosphatase (39-117) U/L Troponin I High Sens (<3.5-17.0) ng/L B-Natriuretic Peptide (<100) pg/mL Total Protein (6.5-8.0) g/dL Albumin (3.5-5.0) g/dL Lipase (8-78) U/L Urine Color Yellow Urine Appearance Clear Urine pH 6.0 (5.0-9.0) Ur Specific [place] 1.015 (1.005-1.025) Urine Protein Negative (Neg-Trace) mg/dL Urine Glucose (UA) Negative (Negative) mg/dL Urine Ketones Negative (Negative) mg/dL Urine Blood Negative (Negative) Urine Nitrite Negative (Negative) Ur Leukocyte Esterase Trace H (Negative) Urine RBC 0-2 (0-2) /HPF Urine WBC 0-5 (0-5) /HPF Ur Squamous Epith Cells 0-2 (0-2) /HPF Urine Bacteria None Seen (None Seen) Hyaline Casts 0-2 (0-2) /LPF Stool Occult Blood (NEGATIVE) Blood Type Antibody Screen Crossmatch Independent Interpretation I performed an independent interpretation of an: EKG (My interpretation patient's EKG showed an paced rhythm with a right bundle-branch block there is no acute ST segment elevation) and Plain X-Ray (Chest x-ray grossly negative) Radiology Impression Discussion of test interpretation with radiology: I have reviewed the radiologist's reading. Independent Historian Clinical information obtained from an independent historian. History obtained from or confirmed by: Spouse External Record Review External record reviewed: Office record Previous cardiology record reviewed Chronic Conditions History of atrial fibrillation status post pacemaker history of hypertension Social Determinants Patient?s care significantly limited by Social Determinants of Health including: Problems related to primary support group Critical Care Time Critical Care Time Critical Care Time: Yes Total Critical Care Time: 40 Attestation: I have personally provided 40 minutes of critical care time exclusive of time spent on separately billable procedures. ?Time includes review of lab data, radiology results, discussion with consultants, and monitoring for potential decompensation. ?Interventions were performed as documented above Discharge Plan Discharge Clinical Impression: Acute GI bleeding Patient Disposition: Admitted As Inpatient Prescriptions: No Action cholecalciferol (vitamin D3) 50 mcg (2,000 unit) capsule 50 mcg PO DAILY 90 Days Qty: 90 3RF rosuvastatin [Crestor] 40 mg tablet 40 mg PO DAILY Qty: 90 3RF Eliquis 5 mg tablet 5 mg PO BID Qty: 180 3RF fluticasone propionate 50 mcg/actuation spray,suspension 1 spray intranasal BID Qty: 48 1RF Multaq 400 mg tablet 400 mg PO BID Qty: 60 5RF benzonatate 100 mg capsule 100 mg PO BID-TID PRN (Reason: cough) Qty: 30 0RF loratadine [Allergy Relief (loratadine)] 10 mg tablet 10 mg PO DAILY Qty: 30 0RF albuterol sulfate 90 mcg/actuation HFA aerosol inhaler 1 inh inhalation QID PRN (Reason: shortness of breath or wheezing) Qty: 6.7 3RF Print Language: [place]
[2024-09-16] MEDS: Pantoprazole Sodium 40 MG/10 ML VIAL 80 MG IVPUSH (09:24)
[2024-09-16 09:36] LABS: MANUAL DIFF FLAG NO
[2024-09-16 09:38] LABS: Basophils Percent Auto 0.7 % (0-2); Eosinophils Absolute Auto 0.1 X10*3/uL (0.0-0.4); Eosinophils Percent Auto 1.7 % (0-4); Imm Gran Abs Auto 0.02 X10*3/uL (0.00-0.03); Imm Gran Pct Auto 0.3 % (0.0-0.4); Lymphocytes Absolute Auto 0.9 X10*3/uL (1.2-4.9); Lymphocytes Percent Auto 14.7 % (20-40); Mean Corpuscular HGB Conc 32.4 g/dl (31.0-35.0); Mean Corpuscular Hemoglobin 25.1 pg (27.0-33.0); Mean Corpuscular Volume 77.6 fL (80.0-98.0); Mean Platelet Volume 10.5 fL (9.4-12.3); Monocytes Absolute Auto 0.5 X10*3/uL (0.1-1.2); Monocytes Percent Auto 8.7 % (2-11); Neutrophils Absolute Auto 4.3 x10*3/uL (2.0-8.3); Neutrophils Percent Auto 73.9 % (45-73); Platelet Count 283 X10*3/uL (160-400); Red Blood Count 2.63 X10*6/uL (4.20-5.50); White Blood Count 5.8 X10*3/uL (4.8-10.8)
[2024-09-16 09:39] LABS: OBS Int Ctl Valid YES; OBS1 POSITIVE (NEGATIVE)
[2024-09-16 09:41] LABS: Hematocrit 20.4 % (37.0-47.0); Hemoglobin 6.6 g/dl (12.0-16.0)
[2024-09-16 09:44] LABS: INTERNATIONAL NORM RATIO 1.6 (0.9-1.1); Prothrombin Time 18.7 SEC (10.9-12.4)
[2024-09-16 09:59] LABS: Alanine Aminotransferase 25 U/L (0-31); Albumin Level 3.6 g/dL (3.5-5.0); Alkaline Phosphatase 55 U/L (39-117); Anion Gap 9 (12-20); Aspartate Amino Transferase 29 U/L (5-31); Bilirubin Direct < 0.2 mg/dL (0.0-0.5); Bilirubin Total 0.2 mg/dL (0.0-1.0); Blood Urea Nitrogen 16 mg/dL (9-16); Calcium 8.5 mg/dL (8.4-10.2); Carbon Dioxide 23 mmol/L (22-29); Chloride 111 mmol/L (96-108); Creatinine Clr Calc Pharmacy 57.2; Estimated Glomerular Filt Rate > 60; Glucose Random 109 mg/dL (60-115); Lipase 34 U/L (8-78); Sodium 139 mmol/L (135-145); Total Protein 6.2 g/dL (6.5-8.0)
[2024-09-16 10:02] LABS: B Type Natriuretic Peptide 98 pg/mL (<100)
[2024-09-16 10:06] LABS: Troponin-I High Sensitivity 9.5 ng/L (<3.5-17.0)
[2024-09-16 10:26] LABS: Appearance Urine Clear; Color Urine Yellow; Glucose Urine UA Negative (Negative); Leukocyte Esterase Urine Trace (Negative); Nitrite Urine Negative (Negative); Specific Gravity - Urine 1.015 (1.005-1.025); UMIC TRIGGER UACC YES; Urine Blood Negative (Negative); Urine Ketones Negative (Negative); Urine Protein Negative (Neg-Trace)
[2024-09-16 10:29] LABS: Bacteria Urine None Seen (None Seen); Hyaline Casts Urine 0-2 /LPF (0-2); RBC Urine 0-2 /HPF (0-2); Squamous Epithelial Cell Urine 0-2 /HPF (0-2); WBC Urine 0-5 /HPF (0-5)
--- NOTE | 2024-09-16 13:30 | PHA.MEDREC ---
Pharmacy Consult ? Medication Reconciliation Pharmacy has completed the medication reconciliation. Spoke to patient to confirm medication list. Last dose of medications (eliquis, multaq and rosuvastatin) was this morning (09/16/24).
--- NOTE | 2024-09-16 14:25 | PM.GICN ---
History of Present Illness Data of Consult Service Date: 09/16/24 Primary Care Provider: Bernabe Peterson MD HPI Reason for consult: melena 73-year-old female with a history of atrial fibrillation-on eliquis, OA, HLP, CAD who I am seeing for melena Patient noted 3 d of melena, with mild nausea but no adbominal pain. She laso noted increasing SOB but no chest pain. She denies taking aspirin or nsaid. She has not had any weight loss or poor appetite, she is not taking ppi. no smoking or alcohol use. no personal hx of ulcers, or gi bleeding HBG was 6, nml runs at around 12 g/dl Review of Systems Review of Systems: Constitutional : No Weight loss, No Fever, No Chills ENT/Mouth : No sore throat, No Rhinorrhea Eyes: No Swelling, No Redness Cardiovascular : No Chest Pain, + SOB, + Edema Respiratory : No Cough, No Sputum, No Wheezing Gastrointestinal : see HPI Genitourinary : NO Dysuria, No Urinary Frequency, No Hematuria, No Urgency Musculoskeletal :no joint pain, No Myalgias, No Joint Swelling Skin : No Skin Lesions, No rash Neuro : No Weakness, No Numbness, No Dizziness, No Headache Psych : No Anxiety/Panic, No Depression Heme/Lymph: No Bruising, No Lymphadenopathy Endocrine : No Polyuria, No Polydipsia All other systems reviewed and are negative. [facility] Past Medical History Medical History Cardiac pacemaker in situ Visit for wound check Dizziness GERD (gastroesophageal reflux disease) Sick sinus syndrome Atrial fibrillation with rapid ventricular response Atrial fibrillation History of transesophageal echocardiography (ELIGIO) Left atrial dilatation Orthostatic lightheadedness Pain and swelling of left lower leg Exertional dyspnea Swelling of joint of left hand Pain in joint of left hand Overweight (BMI 25.0-29.9) Allergic rhinitis Pure hypercholesterolemia Osteoarthritis Dyslipidemia Vitamin D deficiency Age related osteoporosis Family History Family History Mother Prediabetes Hyperlipidemia Hypertension Father No problems noted. Surgical History Surgical History History of permanent cardiac pacemaker placement (~09/01/23) Status post cardiac catheterization History of cardiac cath Hx of cataract removal with insertion of prosthetic lens (~12/2014) Hx of section Social History Social History Household Members: Spouse Housing: House Do you presently have visiting nurse or other home services: No Alcohol intake: former Patient Tobacco Use Status: Never used Tobacco Smoked in Last 30 Days: No e-Cigarette/Vaping Use: Never Used Second Hand Smoke Exposure: Yes Use of substances other than those prescribed or required for medical reasons: No Advance Directives: Yes Advance Directives Information Provided: Yes Advance Directives on File: No Do you have a plan to hurt others: No Plan service: No Current occupational status: retired Cognitive needs: No Hearing needs: Yes Vision needs: No Meds Allergies Allergy/AdvReac Type Severity Reaction Status Date / Time Sulfa (Sulfonamide Allergy Intermediate Swollen Verified 09/16/24 08:48 Antibiotics) red eyes cefuroxime AdvReac Intermediate Stomach Uncoded 09/16/24 08:48 Upset Active Medications: Current Medications Acetaminophen (Acetaminophen 325 Mg Tablet) 650 mg PO Q6H PRN PRN Reason: Pain, Mild 1-3,fever,headache Atorvastatin Calcium (Atorvastatin Calcium 80 Mg Tablet) 80 mg PO DAILY [facility] Calcium Carbonate (Calcium Carbonate 750 Mg Tab.Chew) 750 mg PO Q4H PRN PRN Reason: Heartburn Magnesium Hydroxide (Milk Of Magnesia 30 Ml Oral.Susp) 30 ml PO DAILY PRN PRN Reason: Constipation Melatonin (Melatonin 3 Mg Tablet) 6 mg PO BEDTIME PRN PRN Reason: Insomnia Ondansetron HCl (Ondansetron Hcl 4 Mg/2 Ml Vial) 4 mg IVPUSH Q8H PRN PRN Reason: Nausea and Vomiting Polyethylene Glycol (Polyethylene Glycol 3350 17 Gm Powd.Pack) 17 gm PO DAILY PRN PRN Reason: Constipation Sodium Chloride (0.9 % Sodium Chloride Flush 3 Ml Syringe) 3 ml IVFLUSH QSHIFT [facility] Home Medications ?Medication ?Instructions ?Recorded ?Confirmed ?Last Taken ?Type cholecalciferol (vitamin D3) 50 50 mcg PO DAILY@1900 09/16/24 09/16/24 09/15/24 History mcg (2,000 unit) capsule fluticasone propionate 50 1 spray intranasal DAILY PRN 09/16/24 09/16/24 Unknown History mcg/actuation nasal Allergy Symptoms spray,suspension Physical Exam Vital Signs: Vital Signs: Last Vital Signs Temp 98.7 F 09/16/24 14:07 Pulse 67 09/16/24 14:07 Resp 18 09/16/24 14:07 BP 136/49 L 09/16/24 14:07 Pulse Ox 100 09/16/24 11:03 O2 Del Method Room Air 09/16/24 11:03 BMI result Body Mass Index 27.6 EXAM: GENERAL: The patient is well developed and nontoxic. VITAL SIGNS:see workflow HEENT: Nonicteric sclerae, PERRLA, EOMI. Oropharynx clear. Moist mucous membranes. Conjunctivae appear well perfused. No thyroid mass. CHEST: Chest wall is nontender. HEART: Regular rate and rhythm without murmurs. LUNGS: Clear to auscultation bilaterally. ABDOMEN: Soft, positive bowel sounds, nontender, no organomegaly.no flank tenderness SKIN: No rash, no excessive bruising, petechiae, or purpura. NEUROLOGIC: Cranial nerves II-XII intact without motor/sensory deficit. Psych: normal affect Results Labs 09/16/24 09:23 09/16/24 09:22 Labs: Short CBC 09/16/24 Range/Units 09:23 WBC 5.8 (4.8-10.8) X10*3/uL Hgb 6.6 L* D (12.0-16.0) g/dl Hct 20.4 L* D (37.0-47.0) % Plt Count 283 (160-400) X10*3/uL BMP 09/16/24 09:22 Sodium 139 Potassium 4.0 Chloride 111 H Carbon Dioxide 23 BUN 16 Creatinine 0.77 Calcium 8.5 D Liver Function 09/16/24 Range/Units 09:22 Total Bilirubin 0.2 (0.0-1.0) mg/dL Direct Bilirubin < 0.2 (0.0-0.5) mg/dL AST 29 (5-31) U/L ALT 25 (0-31) U/L Alkaline Phosphatase 55 (39-117) U/L Albumin 3.6 (3.5-5.0) g/dL Urine 09/16/24 Range/Units 10:12 Urine Color Yellow Urine Appearance Clear Urine pH 6.0 (5.0-9.0) Ur Specific [place] 1.015 (1.005-1.025) Urine Protein Negative (Neg-Trace) mg/dL Urine Glucose (UA) Negative (Negative) mg/dL Assessment and Plan (1) Acute GI bleeding: Status: Acute Plan 1/ Acute blood loss anemia, statistically most likely cause would be PUD, ddX- dieulafoy, AVM, neoplasia, gastritis PLAN 1/ PPI IV, BID 2/ allow clears 3/ hold eliquis for the meantime, 4/ transfuse for target HGB 8 g/dl 5/ EGD either tomorrow or depending on clinical course Procedures Date of Service Date of Service: 09/16/24
--- NOTE | 2024-09-16 15:12 | P.HPHOSP_ITS ---
History of Present Illness Date of Service: 09/16/24 Attending physician on admission: [facility] Chief Complaint: Black stool 73-year-old female with history of paroxysmal atrial fibrillation anticoagulated with Eliquis on Multaq, sick sinus syndrome s/p pacemaker, GERD, hyperlipidemia presented to the ED earlier today for evaluation of black stool. The patient states that for the last 2 days has been experiencing multiple episodes of black tarry stool. She has continue taking Eliquis despite this. She states that her legs have also felt weak with some paresthesias and she has had intermittent dyspnea. Denies any nausea, vomiting, hematemesis, bright red blood per rectum, lightheadedness, palpitations, chest pain. No fevers or chills. Last dose of Eliquis was this morning. On arrival to the ED, vital signs stable. H/H 6.6/20.4% renal function and electrolyte levels normal. Troponin within normal limits. BNP 98. Urinalysis unremarkable. Stool occult blood positive. Chest x-ray negative for any acute cardiopulmonary abnormality. EKG shows atrial paced rhythm with rate 60, right bundle branch block, unchanged from prior EKGs. Seen by Gastroenterology while in the ED recommending IV ppi, clear liquids, transfusions and plan for EGD either tomorrow or depending on clinical course. In the ED, has received 2 units packed red blood cells, and IV pantoprazole. Review of Systems 2 Review of Systems: Yes all other systems are reviewed and are negative [facility] Medical History Cardiac pacemaker in situ Visit for wound check Dizziness GERD (gastroesophageal reflux disease) Sick sinus syndrome Atrial fibrillation with rapid ventricular response Atrial fibrillation History of transesophageal echocardiography (ELIGIO) Left atrial dilatation Orthostatic lightheadedness Pain and swelling of left lower leg Exertional dyspnea Swelling of joint of left hand Pain in joint of left hand Overweight (BMI 25.0-29.9) Allergic rhinitis Pure hypercholesterolemia Osteoarthritis Dyslipidemia Vitamin D deficiency Age related osteoporosis Family History Mother Prediabetes Hyperlipidemia Hypertension Father No problems noted. Surgical History History of permanent cardiac pacemaker placement (~09/01/23) Status post cardiac catheterization History of cardiac cath Hx of cataract removal with insertion of prosthetic lens (~12/2014) Hx of section Social History Household Members: Spouse Housing: House Do you presently have visiting nurse or other home services: No Alcohol intake: former Patient Tobacco Use Status: Never used Tobacco e-Cigarette/Vaping Use: Never Used Second Hand Smoke Exposure: No service: No Current occupational status: retired Cognitive needs: No Hearing needs: Yes Vision needs: No Meds Allergies Allergy/AdvReac Type Severity Reaction Status Date / Time Sulfa (Sulfonamide Allergy Intermediate Swollen Verified 09/16/24 08:48 Antibiotics) red eyes cefuroxime AdvReac Intermediate Stomach Uncoded 09/16/24 08:48 Upset Active Medications: Current Medications Acetaminophen (Acetaminophen 325 Mg Tablet) 650 mg PO Q6H PRN PRN Reason: Pain, Mild 1-3,fever,headache Atorvastatin Calcium (Atorvastatin Calcium 80 Mg Tablet) 80 mg PO DAILY MAYANK Calcium Carbonate (Calcium Carbonate 750 Mg Tab.Chew) 750 mg PO Q4H PRN PRN Reason: Heartburn Magnesium Hydroxide (Milk Of Magnesia 30 Ml Oral.Susp) 30 ml PO DAILY PRN PRN Reason: Constipation Melatonin (Melatonin 3 Mg Tablet) 6 mg PO BEDTIME PRN PRN Reason: Insomnia Ondansetron HCl (Ondansetron Hcl 4 Mg/2 Ml Vial) 4 mg IVPUSH Q8H PRN PRN Reason: Nausea and Vomiting Polyethylene Glycol (Polyethylene Glycol 3350 17 Gm Powd.Pack) 17 gm PO DAILY PRN PRN Reason: Constipation Sodium Chloride (0.9 % Sodium Chloride Flush 3 Ml Syringe) 3 ml IVFLUSH QSHIFT [facility] Home Medications ?Medication ?Instructions ?Recorded ?Confirmed ?Last Taken ?Type cholecalciferol (vitamin D3) 50 50 mcg PO DAILY@1900 09/16/24 09/16/24 09/15/24 History mcg (2,000 unit) capsule fluticasone propionate 50 1 spray intranasal DAILY PRN 09/16/24 09/16/24 Unknown History mcg/actuation nasal Allergy Symptoms spray,suspension Physical Exam 2 Vital Signs and Narrative: Vital Signs: Last Vital Signs Temp 98.5 F 09/16/24 15:11 Pulse 60 09/16/24 15:11 Resp 18 09/16/24 15:11 BP 153/56 H 09/16/24 15:11 Pulse Ox 100 09/16/24 14:00 O2 Del Method Room Air 09/16/24 14:00 BMI result Body Mass Index 27.6 Constitutional - Awake and Alert, No apparent distress Eyes - conjunctival pallor Cardiovascular - S1S2, RRR, No edema Respiratory - Normal lung expansion, Normal respiratory effort, No respiratory distress, CTA bilaterally Gastrointestinal -mild epigastric tenderness to palpation without any guarding or rebound. ND; +BS Extremities - no calf tenderness bilaterally, no swelling Skin - Warm/Dry Neurological - Alert & oriented x3 Psychological - Appropriate affect Results Labs 09/17/24 06:17 09/17/24 06:17 Labs: Laboratory Results - last 24 hr 09/16/24 09/16/24 09/16/24 09:22 09:23 09:30 MCV 77.6 L MCH 25.1 L MCHC 32.4 RDW 15.0 Plt Count 283 MPV 10.5 Immature Gran % (Auto) 0.3 Neut % (Auto) 73.9 H Lymph % (Auto) 14.7 L [place] % (Auto) 8.7 Eos % (Auto) 1.7 Baso % (Auto) 0.7 Lymph # (Auto) 0.9 L [place] # (Auto) 0.5 Eos # (Auto) 0.1 Baso # (Auto) 0.0 Abs Immat Gran (auto) 0.02 Absolute Neuts (auto) 4.3 Absolute Nucleated RBC 0.000 Nucleated RBC % (auto) 0.0 PT 18.7 H INR 1.6 H Anion Gap 9 L Estim Creat Clear Calc 57.2 Estimated GFR > 60 Random Glucose 109 Calcium 8.5 D Total Bilirubin 0.2 Direct Bilirubin < 0.2 AST 29 ALT 25 Alkaline Phosphatase 55 B-Natriuretic Peptide 98 Total Protein 6.2 L Albumin 3.6 Lipase 34 Urine Color Urine Appearance Urine pH Ur Specific [place] Urine Protein Urine Glucose (UA) Urine Ketones Urine Blood Urine Nitrite Ur Leukocyte Esterase Urine RBC Urine WBC Ur Squamous Epith Cells Urine Bacteria Hyaline Casts Stool Occult Blood POSITIVE Blood Type O Positive Antibody Screen NEGATIVE Crossmatch See Detail 09/16/24 10:12 MCV MCH MCHC RDW Plt Count MPV Immature Gran % (Auto) Neut % (Auto) Lymph % (Auto) [place] % (Auto) Eos % (Auto) Baso % (Auto) Lymph # (Auto) [place] # (Auto) Eos # (Auto) Baso # (Auto) Abs Immat Gran (auto) Absolute Neuts (auto) Absolute Nucleated RBC Nucleated RBC % (auto) PT INR Anion Gap Estim Creat Clear Calc Estimated GFR Random Glucose Calcium Total Bilirubin Direct Bilirubin AST ALT Alkaline Phosphatase B-Natriuretic Peptide Total Protein Albumin Lipase Urine Color Yellow Urine Appearance Clear Urine pH 6.0 Ur Specific [place] 1.015 Urine Protein Negative Urine Glucose (UA) Negative Urine Ketones Negative Urine Blood Negative Urine Nitrite Negative Ur Leukocyte Esterase Trace H Urine RBC 0-2 Urine WBC 0-5 Ur Squamous Epith Cells 0-2 Urine Bacteria None Seen Hyaline Casts 0-2 Stool Occult Blood Blood Type Antibody Screen Crossmatch Imaging Radiologist's Impressions: Impressions Chest X-Ray 09/16/24 09:08 IMPRESSION: Chronic interstitial lung disease. Hiatal hernia, moderate to large volume. Cardiomegaly, mild. Electronically signed by: Albert Quiroz MD 09/16/2024 09:32 AM EDT RP Assessment and Plan (1) Acute GI bleeding: Status: Acute Plan 73-year-old female with history of paroxysmal atrial fibrillation anticoagulated with Eliquis on Multaq, sick sinus syndrome s/p pacemaker, GERD, hyperlipidemia admitted for further management of upper GI bleed. # acute upper GI bleed with acute blood loss anemia -H/H 6.6/24 and 4%, being transfused 2 units packed red blood cells in the ED -hold Eliquis -IV PPI -clear liquid diet, NPO after midnight -repeat H/H now. If stable, clear liquid diet, otherwise NPO -monitor on telemetry -trend H/H # paroxysmal atrial fibrillation -hold Eliquis. Continue Multaq # HLD -continue statin # SSS -s/p pacemaker DVT prophylaxis- scps Full code Patient requires inpatient stay at least 2 midnights for management of acute upper GI bleed with blood loss anemia requiring transfusions, IV ppi, and inpatient EGD with close monitoring of hemodynamics Quality Stroke Does the patient have a stroke diagnosis?: No VTE Prior VTE?: No VTE Risk Level:: Medical - moderate - high VTE Device Contraindication: N/A - Device Ordered VTE Drug Contraindication: Treatment Not Tolerated
[2024-09-16] MEDS: 0.9 % Sodium Chloride Flush 3 ML SYRINGE IVFLUSH (16:19)
[2024-09-16] MEDS: Pantoprazole Sodium 40 MG/10 ML VIAL IVPUSH (16:19)
[2024-09-16] MEDS: Lactated Ringers 1,000 ML 75 ML IVCONT (17:34)
[2024-09-16 18:50] LABS: Hemoglobin 9.4 g/dl (12.0-16.0)
[2024-09-16] MEDS: Dronedarone HCl 400 MG TABLET PO (20:41)
[2024-09-16 22:00] LABS: Hematocrit 25.6 % (37.0-47.0); Hemoglobin 8.7 g/dl (12.0-16.0)
[2024-09-17] VITALS (7 sets, daily range): BP systolic 113–162; BP diastolic 48–74; PULSE 59–68; RESP 16–18; TEMP 36.4–37.1; O2SAT 97–98
[2024-09-17] MEDS: Lactated Ringers 1,000 ML 75 ML IVCONT ×2 (06:23→20:57)
[2024-09-17] MEDS: Pantoprazole Sodium 40 MG/10 ML VIAL IVPUSH ×2 (06:25→16:25)
[2024-09-17 06:26] LABS: MANUAL DIFF FLAG NO
[2024-09-17 06:29] LABS: Basophils Absolute Auto 0.1 X10*3/uL (0.0-0.2); Basophils Percent Auto 0.9 % (0-2); Eosinophils Absolute Auto 0.2 X10*3/uL (0.0-0.4); Eosinophils Percent Auto 3.9 % (0-4); Hematocrit 25.7 % (37.0-47.0); Hemoglobin 8.5 g/dl (12.0-16.0); Imm Gran Abs Auto 0.02 X10*3/uL (0.00-0.03); Imm Gran Pct Auto 0.4 % (0.0-0.4); Lymphocytes Absolute Auto 1.3 X10*3/uL (1.2-4.9); Lymphocytes Percent Auto 23.7 % (20-40); Mean Corpuscular HGB Conc 33.1 g/dl (31.0-35.0); Mean Corpuscular Hemoglobin 25.7 pg (27.0-33.0); Mean Corpuscular Volume 77.6 fL (80.0-98.0); Mean Platelet Volume 10.7 fL (9.4-12.3); Monocytes Absolute Auto 0.6 X10*3/uL (0.1-1.2); Neutrophils Absolute Auto 3.4 x10*3/uL (2.0-8.3); Neutrophils Percent Auto 60.1 % (45-73); Platelet Count 236 X10*3/uL (160-400); Red Blood Count 3.31 X10*6/uL (4.20-5.50); Red Cell Distribution Width 15.7 % (11.0-16.0); White Blood Count 5.7 X10*3/uL (4.8-10.8)
[2024-09-17 06:41] LABS: Anion Gap 8 (12-20); Blood Urea Nitrogen 11 mg/dL (9-16); Calcium 8.4 mg/dL (8.4-10.2); Carbon Dioxide 23 mmol/L (22-29); Chloride 112 mmol/L (96-108); Creatinine Clr Calc Pharmacy 65.6; Estimated Glomerular Filt Rate > 60; Glucose Random 87 mg/dL (60-115); Potassium 3.7 mmol/L (3.3-5.1); Sodium 139 mmol/L (135-145)
--- NOTE | 2024-09-17 07:27 | P.PNIM_ITS ---
Subjective Subjective Date of Service: 09/17/24 <[facility] - Last Filed: 09/17/24 15:09> 09/17/24 <Luís Baker MD - Last Filed: 09/17/24 15:05> Interval History: Pt reports a stable overnight, no issues with abdominal pain, N/V, bloody bowel movement or dizziness with walking. Pt denies QUINTEROS but is aware that her BP has been running high. Pt normally has BP at home of 116/70's. <Savannah Murhpy [facility] - Last Filed: 09/17/24 15:09> Pt reports a stable overnight, no issues with abdominal pain, N/V, bloody bowel movement or dizziness with walking. Pt denies QUINTEROS but is aware that her BP has been running high. Pt normally has BP at home of 116/70's. Pt denies any chest pain, but reports noted SOB especially with movement. Pt denies any issues with edema in lower extremities. Pt is aware that she has a moderate sized hiatal hernia, no issues with swallowing or plans for intervention. Pt reports last clonoscopy was years ago and results were normal. Pt reports colo fit test a few years ago and that was also normal. <Luís Baker MD - Last Filed: 09/17/24 15:05> Review of Systems Pt denies any chest pain, but reports noted SOB especially with movement. Pt denies any issues with edema in lower extremities. Pt is aware that she has a moderate sized hiatal hernia, no issues with swallowing or plans for intervention. Pt reports last clonoscopy was years ago and results were normal. Pt reports colo fit test a few years ago and that was also normal. <Greenevers Murphy [facility] - Last Filed: 09/17/24 15:09> Review of Systems: Yes all other systems are reviewed and are negative <Savannah Murphy [facility] - Last Filed: 09/17/24 15:09> Constitutional Constitutional: Reports fatigue, Denies headache(s), Reports lethargy, Denies malaise, Denies poor appetite, Denies weakness, Denies weight gain and Denies weight loss <Savannah Murphy [facility] - Last Filed: 09/17/24 15:09> Eyes Eyes: Reports no additional eye complaints <[facility] - Last Filed: 09/17/24 15:09> ENT Ears, Nose, Mouth, and Throat: Reports system reviewed and no additional complaints, except as documented, Denies dysphagia, Denies dizziness and Denies headache(s) <[facility] - Last Filed: 09/17/24 15:09> Cardiovascular Cardiovascular: Reports dyspnea on exertion <[facility] - Last Filed: 09/17/24 15:09> pt has been told that her heart is slightly enlarged in the past (noted cardiometgaly on CXR this admission) <[facility] Last Filed: 09/17/24 15:09> Respiratory Respiratory: Reports no additional respiratory complaints and Reports dyspnea on exertion <[facility] Last Filed: 09/17/24 15:09> Gastrointestinal Gastrointestinal: Denies abdominal pain, Reports melena (yesterday none today ), Denies bloating, Denies hematochezia, Denies coffee ground emesis, Denies constipation, Denies dysphagia, Denies heartburn, Denies diarrhea, Denies nausea and Denies vomiting <[facility] - Last Filed: 09/17/24 15:09> Genitourinary Genitourinary: Reports no additional female genitourinary complaints <[facility] Last Filed: 09/17/24 15:09> Musculoskeletal Musculoskeletal: Reports no additional musculoskeletal complaints <[facility] - Last Filed: 09/17/24 15:09> Integumentary/Breasts Skin/Breast: Reports no additional skin complaints <[facility] - Last Filed: 09/17/24 15:09> Neurologic Neurologic: Denies dizziness, Denies headache(s) and Denies weakness <[facility] - Last Filed: 09/17/24 15:09> Psychiatric Psychiatric: Reports anxiety (mild related to admission ) <[facility] - Last Filed: 09/17/24 15:09> Endocrine Endocrine: Reports fatigue <[facility] - Last Filed: 09/17/24 15:09> Hematologic/Lymphatic on eliquis <[facility] - Last Filed: 09/17/24 15:09> Allergic/Immunologic Allergic/Immunologic: Reports no additional allergic/immunologic complaints <[facility] - Last Filed: 09/17/24 15:09> Physical Exam 2 Vital Signs: Vital Signs: Last Vital Signs Temp 98.7 F 09/17/24 07:13 Pulse 59 09/17/24 07:13 Resp 16 09/17/24 07:13 BP 162/74 H 09/17/24 07:13 Pulse Ox 97 09/17/24 07:13 O2 Del Method Room Air 09/17/24 07:13 BMI result Body Mass Index 27.5 <[facility] - Last Filed: 09/17/24 15:09> Const: General: cooperative, healthy appearing, comfortable and other (pt standing at sink washing up able to perform care without compromise ) < [facility] - Last Filed: 09/17/24 15:09> Nutritional Appearance: average body habitus and well nourished <[facility] Last Filed: 09/17/24 15:09> Orientation/consciousness: patient oriented x3 <[facility] - Last Filed: 09/17/24 15:09> Limitations: no limitations <[facility] - Last Filed: 09/17/24 15:09> HEENT: Head: Yes normal to inspection, Yes normocephalic and Yes atraumatic <[facility] - Last Filed: 09/17/24 15:09> Ears: hearing grossly normal bilaterally <[facility] Last Filed: 09/17/24 15:09> General nose exam: Normal external nose present <[facility] Last Filed: 09/17/24 15:09> Face and sinus: Yes normal facial exam, Yes sinuses nontender and Yes face symmetric <[facility] Last Filed: 09/17/24 15:09> Mouth: Normal oral and palatal mucosa present <[facility] Last Filed: 09/17/24 15:09> Teeth and gingiva: dentition normal <[facility] Last Filed: 09/17/24 15:09> Throat: Yes uvula midline <[facility] Last Filed: 09/17/24 15:09> Eyes: Pupils: Equal, round and reactive pupils present <[facility] Last Filed: 09/17/24 15:09> Chest: Chest palpation & inspection: normal inspection of the chest < [facility] Last Filed: 09/17/24 15:09> Resp: Effort & Inspection: normal respiratory effort and able to speak in complete sentences <[facility] Last Filed: 09/17/24 15:09> Auscultation: clear to auscultation bilaterally <[facility] Last Filed: 09/17/24 15:09> Cardio: Jugular venous distension: no JVD <[facility] Last Filed: 09/17/24 15:09> Palpation: normal PMI <[facility] Last Filed: 09/17/24 15:09> Rate: regular rate <[facility] Last Filed: 09/17/24 15:09> Rhythm: regular rhythm <[facility] Last Filed: 09/17/24 15:09> Heart sounds: S1 normal heart sound present, S2 normal heart sound present and no murmurs <[facility] Last Filed: 09/17/24 15:09> Peripheral pulses: Peripheral pulses 2+ throughout <[facility] Last Filed: 09/17/24 15:09> GI: Inspection: Yes distended and No visible herniation <[facility] Last Filed: 09/17/24 15:09> Palpation (GI): Soft to palpation, not firm, nontender, no guarding, not rigid, No hepatosplenomegaly present and no hernias <[facility] - Last Filed: 09/17/24 15:09> Percussion: Yes normal to percussion <[facility] - Last Filed: 09/17/24 15:09> Auscultation: normal bowel sounds <[facility] - Last Filed: 09/17/24 15:09> Rectal Exam - Female: deferred <[facility] - Last Filed: 09/17/24 15:09> : General: Yes no CVA tenderness <[facility] - Last Filed: 09/17/24 15:09> Back/Spine/Pelvis: Back: no CVA tenderness <[facility] - Last Filed: 09/17/24 15:09> Cervical Spine: cervical ROM normal <[facility] - Last Filed: 09/17/24 15:09> Thoracic/Lumbar Spine: thoracic and lumbar spine normal to inspection < [facility] Last Filed: 09/17/24 15:09> Skin: General skin exam: no rashes or lesions noted, turgor normal and other (mildly pale ) <[facility] - Last Filed: 09/17/24 15:09> Trauma: no lacerations or abrasions <[facility] - Last Filed: 09/17/24 15:09> Wounds: no wounds <[facility] - Last Filed: 09/17/24 15:09> Hair: normal <[facility] - Last Filed: 09/17/24 15:09> Nails: normal <[facility] - Last Filed: 09/17/24 15:09> Neuro: General: patient oriented x3 and CN's II-XI intact bilaterally < [facility] Last Filed: 09/17/24 15:09> Cranial nerves: Yes CN's II-XII intact bilaterally, Yes Equal, round and reactive pupils present, Yes Bilaterally intact EOM present, Yes Midline tongue present, Yes Ability to bilaterally rotate head present and Yes Ability to bilaterally elevate shoulders present <[facility] - Last Filed: 09/17/24 15:09> Cognition (Neuro): normal cognition <[facility] - Last Filed: 09/17/24 15:09> Gait exam (Neuro): Normal gait present <[facility] - Last Filed: 09/17/24 15:09> Motor exam (neuro): 5/5 motor strength present throughout <[facility] - Last Filed: 09/17/24 15:09> Extrem: General: Yes normal to inspection, Yes full ROM and Yes capillary refill normal <[facility] - Last Filed: 09/17/24 15:09> Right upper extremity: normal to inspection, full ROM and normal capillary refill <[facility] - Last Filed: 09/17/24 15:09> Left upper extremity: normal to inspection, full ROM and normal capillary refill <[facility] - Last Filed: 09/17/24 15:09> Right lower extremity: normal to inspection, full ROM and normal capillary refill <[facility] - Last Filed: 09/17/24 15:09> Left lower extremity: normal to inspection, full ROM and normal capillary refill <[facility] - Last Filed: 09/17/24 15:09> Psych: Appearance: grossly normal and well kempt <[facility] - Last Filed: 09/17/24 15:09> Mental Status: mental status grossly normal <[facility] - Last Filed: 09/17/24 15:09> Speech and movement: Normal speech and movement present and Clear speech present <[facility] - Last Filed: 09/17/24 15:09> Affect: normal affect <[facility] - Last Filed: 09/17/24 15:09> Attitude: cooperative <[facility] Last Filed: 09/17/24 15:09> Thought process: Normal thought process present <[facility] Last Filed: 09/17/24 15:09> Thought content: Normal thought content present <[facility] Last Filed: 09/17/24 15:09> Insight: Good insight present (Psych) <[facility] Last Filed: 09/17/24 15:09> Judgement: Good judgement present (Psych) <[facility] Last Filed: 09/17/24 15:09> Objective Data Active Medications Acetaminophen (Acetaminophen 325 Mg Tablet) 650 mg PO Q6H PRN PRN Reason: Pain, Mild 1-3,fever,headache Atorvastatin Calcium (Atorvastatin Calcium 80 Mg Tablet) 80 mg PO DAILY [facility] Calcium Carbonate (Calcium Carbonate 750 Mg Tab.Chew) 750 mg PO Q4H PRN PRN Reason: Heartburn Lactated Ringer's (Lr) 1,000 mls @ 75 mls/hr IVCONT .[id number] [facility] Last Admin: 09/17/24 06:23 Dose: 75 mls/hr Documented By: REG Magnesium Hydroxide (Milk Of Magnesia 30 Ml Oral.Susp) 30 ml PO DAILY PRN PRN Reason: Constipation Melatonin (Melatonin 3 Mg Tablet) 6 mg PO BEDTIME PRN PRN Reason: Insomnia Ondansetron HCl (Ondansetron Hcl 4 Mg/2 Ml Vial) 4 mg IVPUSH Q8H PRN PRN Reason: Nausea and Vomiting Pantoprazole Sodium (Pantoprazole Sodium 40 Mg/10 Ml Vial) 40 mg IVPUSH BID@0630,1630 [facility] Last Admin: 09/17/24 06:25 Dose: 40 mg Documented By: REG Polyethylene Glycol (Polyethylene Glycol 3350 17 Gm Powd.Pack) 17 gm PO DAILY PRN PRN Reason: Constipation Sodium Chloride (0.9 % Sodium Chloride Flush 3 Ml Syringe) 3 ml IVFLUSH QSHIFT [facility] Last Admin: 09/17/24 01:36 Dose: Not Given Documented By: REG Non-Admin Reason: IV Running <[facility] Last Filed: 09/17/24 15:09> Labs CBC & Chem 7: 09/17/24 06:17 09/17/24 06:17 <[facility] - Last Filed: 09/17/24 15:09> Labs: Laboratory Results - last 24 hr 09/16/24 09/16/24 09/16/24 09:22 09:23 09:30 MCV 77.6 L MCH 25.1 L MCHC 32.4 RDW 15.0 Plt Count 283 MPV 10.5 Immature Gran % (Auto) 0.3 Neut % (Auto) 73.9 H Lymph % (Auto) 14.7 L [place] % (Auto) 8.7 Eos % (Auto) 1.7 Baso % (Auto) 0.7 Lymph # (Auto) 0.9 L [place] # (Auto) 0.5 Eos # (Auto) 0.1 Baso # (Auto) 0.0 Abs Immat Gran (auto) 0.02 Absolute Neuts (auto) 4.3 Absolute Nucleated RBC 0.000 Nucleated RBC % (auto) 0.0 PT 18.7 H INR 1.6 H Anion Gap 9 L Estim Creat Clear Calc 57.2 Estimated GFR > 60 Random Glucose 109 Calcium 8.5 D Total Bilirubin 0.2 Direct Bilirubin < 0.2 AST 29 ALT 25 Alkaline Phosphatase 55 B-Natriuretic Peptide 98 Total Protein 6.2 L Albumin 3.6 Lipase 34 Urine Color Urine Appearance Urine pH Ur Specific Whick Urine Protein Urine Glucose (UA) Urine Ketones Urine Blood Urine Nitrite Ur Leukocyte Esterase Urine RBC Urine WBC Ur Squamous Epith Cells Urine Bacteria Hyaline Casts Stool Occult Blood POSITIVE Blood Type O Positive Antibody Screen NEGATIVE Crossmatch See Detail 09/16/24 09/17/24 10:12 06:17 MCV 77.6 L MCH 25.7 L MCHC 33.1 RDW 15.7 Plt Count 236 MPV 10.7 Immature Gran % (Auto) 0.4 Neut % (Auto) 60.1 Lymph % (Auto) 23.7 [place] % (Auto) 11.0 Eos % (Auto) 3.9 Baso % (Auto) 0.9 Lymph # (Auto) 1.3 [place] # (Auto) 0.6 Eos # (Auto) 0.2 Baso # (Auto) 0.1 Abs Immat Gran (auto) 0.02 Absolute Neuts (auto) 3.4 Absolute Nucleated RBC 0.000 Nucleated RBC % (auto) 0.0 PT INR Anion Gap 8 L Estim Creat Clear Calc 65.6 Estimated GFR > 60 Random Glucose 87 Calcium 8.4 Total Bilirubin Direct Bilirubin AST ALT Alkaline Phosphatase B-Natriuretic Peptide Total Protein Albumin Lipase Urine Color Yellow Urine Appearance Clear Urine pH 6.0 Ur Specific Whick 1.015 Urine Protein Negative Urine Glucose (UA) Negative Urine Ketones Negative Urine Blood Negative Urine Nitrite Negative Ur Leukocyte Esterase Trace H Urine RBC 0-2 Urine WBC 0-5 Ur Squamous Epith Cells 0-2 Urine Bacteria None Seen Hyaline Casts 0-2 Stool Occult Blood Blood Type Antibody Screen Crossmatch <[facility] - Last Filed: 09/17/24 15:09> Imaging CT scan - abdomen: Radiologist's impression: Impressions Chest X-Ray 09/16/24 09:08 IMPRESSION: Chronic interstitial lung disease. Hiatal hernia, moderate to large volume. Cardiomegaly, mild. Electronically signed by: Albert Quiroz MD 09/16/2024 09:32 AM EDT RP <[facility] Last Filed: 09/17/24 15:09> ECG Attestation: I personally reviewed and interpreted this ECG as follows: (paced rhythm) <[facility] Last Filed: 09/17/24 15:09> Pacemaker function: normal pacer function <[facility] - Last Filed: 09/17/24 15:09> Microbiology Microbiology Results: NA <[facility] - Last Filed: 09/17/24 15:09> Assessment and Plan (1) Acute GI bleeding: Status: Acute <[facility] - Last Filed: 09/17/24 15:09> Assessment and Plan: Dr. Gutierrez is following, asked for Kcentra (2000 mg dose based on pt being on eliquis, checked with pharmacy) INR admision 1.6, Kcentra needed in order to do EGD NPO Protonix 40 mg IV BID Plan for EGD today H/H 8.5/25.7 AM today after 2 units of PRBCs (9.4/28 then 8.7/25.6). Next H/H 2PM Pt able to stand at sink and perform self care without dizziness or compromise IVF running, LR at 75 ml/Hr Iron panel added, all results WNL Noted mild CM on CXR, checking BNP, pt reporting mild SOB with activity for last 2 days, likely due to anemia more so that CHF Plan is for Colonoscopy in AM 09/18 NPO at midnight <[facility] - Last Filed: 09/17/24 15:09> (2) HTN (hypertension): Status: Acute <[facility] - Last Filed: 09/17/24 15:09> Assessment and Plan: Systolic elevated, 160's hydralazine 5 mg IV X1 and prn, pt is not normally on antihypertensives and BP at home runs 116/70's ECG paced rhytyhm (HX of SSS) Pt slightly anxious about admission, GIB issues No indication for benzodiazepines at this time <[facility] - Last Filed: 09/17/24 15:09> (3) Cardiomegaly: Status: Chronic <[facility] - Last Filed: 09/17/24 15:09> Assessment and Plan: Pt states she has been told she has enlarged heart in the past BNP 100 (WNL) Systolic elevated, hydralazine prn, pt is not normally on antihypertensives and BP at home runs 116/70's <[facility] - Last Filed: 09/17/24 15:09> (4) Cardiac pacemaker in situ: Status: Chronic <[facility] - Last Filed: 09/17/24 15:09> Assessment and Plan: ECG paced rhythm Pt will continue to follow with cardioogist as an outpatient <[facility] - Last Filed: 09/17/24 15:09> (5) Paroxysmal atrial fibrillation: Status: Chronic <[facility] - Last Filed: 09/17/24 15:09> Assessment and Plan: ECG paced rhytynm Pt normally on eliquis but this is on hold due to GIB issues Plan is for EGD today with Dr Gutierrez <[facility] - Last Filed: 09/17/24 15:09> (6) Allergic rhinitis: Status: Chronic <[facility] - Last Filed: 09/17/24 15:09> Assessment and Plan: Fluticasone prn Pt currently asymptomatic <[facility] - Last Filed: 09/17/24 15:09> (7) Osteoarthritis: Status: Chronic <[facility] - Last Filed: 09/17/24 15:09> Assessment and Plan: Pt ambulating independently, no specific complaints offered NPO currently, acetaminophen prn after procedure and topical (haris henriquez)prn < [facility] - Last Filed: 09/17/24 15:09> (8) Vitamin D deficiency: Status: Chronic <[facility] - Last Filed: 09/17/24 15:09> Assessment and Plan: Continue Vitamin D po once EGD is completed and pt is able to take in po Check VIT D level in AM <[facility] Last Filed: 09/17/24 15:09> (9) Hiatal hernia: Status: Chronic <[facility] Last Filed: 09/17/24 15:09> Assessment and Plan: Moderate sized and pt is already aware and denies issues with chest pain, swallowing issues PPI currently on board for GIB <[facility] - Last Filed: 09/17/24 15:09> (10) Chronic interstitial lung disease: Status: Chronic <[facility] Last Filed: 09/17/24 15:09> Assessment and Plan: Noted on CXR this admission No hx of smoking, no obvious expsoure to second hand smoke Pt does not use oxygen at home No inhalers routinely Noting anemia, pt is not requiring oxygen Pt could benefit from pulmonary follow up as an outpatient, will recommend <[facility] - Last Filed: 09/17/24 15:09> Assessment and Plan: as above <[facility]ans[facility]ie [facility] - Last Filed: 09/17/24 15:09> Total time managing care of this patient today: 40 minutes. <Savannah Jordanscottie [facility] - Last Filed: 09/17/24 15:09> Quality Stroke Does the patient have a stroke diagnosis?: No <[facility] Jordanscottie [facility] - Last Filed: 09/17/24 15:09> Reason for No Anti-thrombotic by Day Two: Contraindicated <Savannah Murphy, [facility] - Last Filed: 09/17/24 15:09> VTE Prior VTE?: No <[facility] - Last Filed: 09/17/24 15:09> VTE Risk Level:: Medical - moderate - high <Savannah Murphy, [facility] - Last Filed: 09/17/24 15:09> VTE Device Contraindication: N/A - Device Ordered <[facility] Jordans[facility]ie [facility] - Last Filed: 09/17/24 15:09> VTE Drug Contraindication: Treatment Not Tolerated <Savannah Murphy, [facility] - Last Filed: 09/17/24 15:09>
[2024-09-17] MEDS: Atorvastatin Calcium 80 MG TABLET PO (07:38)
[2024-09-17] MEDS: Dronedarone HCl 400 MG TABLET PO ×2 (07:38→20:28)
[2024-09-17 08:08] LABS: B Type Natriuretic Peptide 100 pg/mL (<100)
[2024-09-17 08:12] LABS: Iron 107 mcg/dL (30-160); Percent Iron Saturation 32 % (15-50); Total Iron Binding Capacity 338 mcg/dL (228-428); Unsaturated Iron Binding 231 ug/dL
[2024-09-17] MEDS: Hum Prothrombin Cplx(PCC)4Fact 2,000 UNIT in Container,Empty 0 ML 480 UNIT IV (08:28)
--- NOTE | 2024-09-17 11:26 | MHC.CM.PN ---
IMM DELIVERED. PATIENT LIVES IN A HOME W/ HER . FUNCTIONALLY INDEPENDENT. DENIES USE OF SERVICES OR DME. PCP IRMA INTERIANO MD HCP ON FILE AND VERIFIED. DP: GOAL IS HOME SELF CARE. TO TRANSPORT. CM WILL CONTINUE TO FOLLOW.
--- NOTE | 2024-09-17 12:56 | PM.GIPN ---
Subjective Subjective Date of Service: 09/17/24 Interval History: vitals stable but hgb been drifting downward again after 2 units yesterday no abdominal pain no n/v no further melena Critical Care Time (minutes): 0 Physical Exam Vital Signs: Vital Signs: Last Vital Signs Temp 98.7 F 09/17/24 07:13 Pulse 59 09/17/24 07:13 Resp 16 09/17/24 07:13 BP 162/74 H 09/17/24 07:13 Pulse Ox 97 09/17/24 07:13 O2 Del Method Room Air 09/17/24 07:13 BMI result Body Mass Index 27.5 EXAM: GENERAL: The patient is well developed and nontoxic. VITAL SIGNS:see workflow HEENT: Nonicteric sclerae, PERRLA, EOMI. Oropharynx clear. Moist mucous membranes. Conjunctivae appear well perfused. No thyroid mass. CHEST: Chest wall is nontender. HEART: Regular rate and rhythm without murmurs. LUNGS: Clear to auscultation bilaterally. ABDOMEN: Soft, positive bowel sounds, nontender, no organomegaly.no flank tenderness SKIN: No rash, no excessive bruising, petechiae, or purpura. NEUROLOGIC: Cranial nerves II-XII intact without motor/sensory deficit. Psych: normal affect Objective Data Labs 09/17/24 06:17 09/17/24 06:17 Labs: Laboratory Results - last 24 hr 09/16/24 09/16/24 09/16/24 09:23 09:30 18:24 WBC RBC Hgb 9.4 L D Hct 28.0 L D MCV MCH MCHC RDW Plt Count MPV Immature Gran % (Auto) Neut % (Auto) Lymph % (Auto) [place] % (Auto) Eos % (Auto) Baso % (Auto) Lymph # (Auto) [place] # (Auto) Eos # (Auto) Baso # (Auto) Abs Immat Gran (auto) Absolute Neuts (auto) Absolute Nucleated RBC Nucleated RBC % (auto) Smear Path Review SEE NOTE Sodium Potassium Chloride Carbon Dioxide Anion Gap BUN Creatinine Estim Creat Clear Calc Estimated GFR Random Glucose Calcium Iron TIBC % Saturation Unsat Iron Binding B-Natriuretic Peptide Blood Type O Positive Antibody Screen NEGATIVE Crossmatch See Detail 09/16/24 09/17/24 21:56 06:17 WBC 5.7 RBC 3.31 L D Hgb 8.7 L 8.5 L Hct 25.6 L 25.7 L MCV 77.6 L MCH 25.7 L MCHC 33.1 RDW 15.7 Plt Count 236 MPV 10.7 Immature Gran % (Auto) 0.4 Neut % (Auto) 60.1 Lymph % (Auto) 23.7 [place] % (Auto) 11.0 Eos % (Auto) 3.9 Baso % (Auto) 0.9 Lymph # (Auto) 1.3 [place] # (Auto) 0.6 Eos # (Auto) 0.2 Baso # (Auto) 0.1 Abs Immat Gran (auto) 0.02 Absolute Neuts (auto) 3.4 Absolute Nucleated RBC 0.000 Nucleated RBC % (auto) 0.0 Smear Path Review Sodium 139 Potassium 3.7 Chloride 112 H Carbon Dioxide 23 Anion Gap 8 L BUN 11 Creatinine 0.67 Estim Creat Clear Calc 65.6 Estimated GFR > 60 Random Glucose 87 Calcium 8.4 Iron 107 TIBC 338 % Saturation 32 Unsat Iron Binding 231 B-Natriuretic Peptide 100 Blood Type Antibody Screen Crossmatch Procedures Date of Service Date of Service: 09/17/24 Progress Note: A&P Assessment and plan (1) Acute GI bleeding: Status: Acute Plan 1/ Acute blood loss anemia, ddx: PUD, AVM, dieulafoy, right sided colon bleed PLAN: 1/ EGD today for further assessment, she got K centra today as well 2/ cont with PPI for moment Time Spent With Patient Time: Total time managing care of this patient today ____ minutes. Quality Stroke Does the patient have a stroke diagnosis?: No VTE Prior VTE?: No VTE Risk Level:: Medical - moderate - high VTE Device Contraindication: N/A - Device Ordered VTE Drug Contraindication: Treatment Not Tolerated
--- NOTE | 2024-09-17 13:49 | P.CONAN_ITS ---
[facility] Active Problems Active Problems: All Active Problems HTN (hypertension) (Acute) Cardiomegaly (Chronic) Chronic interstitial lung disease (Chronic) Hiatal hernia (Chronic) Acute GI bleeding (Acute) Cough (Acute) Pharyngeal abscess (Acute) Food allergy (Acute) Swelling of lymph node (Acute) Osteoarthritis of left knee (Acute) Low back pain (Acute) Left knee pain (Acute) Left hip pain (Acute) Cardiac pacemaker in situ (Chronic) Pre-syncope (Acute) Atherosclerotic cardiovascular disease (Acute) GERD (gastroesophageal reflux disease) (Acute) Abnormal pharmacologic myocardial perfusion study (Acute) Lightheadedness (Acute) Sick sinus syndrome (Acute) Paroxysmal atrial fibrillation (Chronic) Sick sinus syndrome (Acute) Neck pain (Acute) Personal history of kidney stones (Acute) Flank pain (Acute) PAC (premature atrial contraction) (Acute) Dysuria (Acute) UTI symptoms (Acute) Palpitations (Acute) Eustachian tube dysfunction (Acute) Postnasal drip (Acute) Right otitis media (Acute) Breast cancer screening (Acute) Sinusitis (Acute) Abdominal pain (Acute) SOB (shortness of breath) on exertion (Acute) History of cardiac cath (Acute) Status post cardiac catheterization (Acute) Left atrial dilatation (Acute) Orthostatic lightheadedness (Acute) Pain and swelling of left lower leg (Acute) Exertional dyspnea (Acute) Swelling of joint of left hand (Acute) Pain in joint of left hand (Acute) Overweight (BMI 25.0-29.9) (Acute) Allergic rhinitis (Chronic) Pure hypercholesterolemia (Acute) Osteoarthritis (Chronic) Dyslipidemia (Acute) Vitamin D deficiency (Chronic) Age related osteoporosis (Acute) Past Medical History Medical History Cardiac pacemaker in situ Visit for wound check Dizziness GERD (gastroesophageal reflux disease) Sick sinus syndrome Atrial fibrillation with rapid ventricular response Atrial fibrillation History of transesophageal echocardiography (ELIGIO) Left atrial dilatation Orthostatic lightheadedness Pain and swelling of left lower leg Exertional dyspnea Swelling of joint of left hand Pain in joint of left hand Overweight (BMI 25.0-29.9) Allergic rhinitis Pure hypercholesterolemia Osteoarthritis Dyslipidemia Vitamin D deficiency Age related osteoporosis Family History Family History Mother Prediabetes Hyperlipidemia Hypertension Father No problems noted. Family history of problems with anesthesia: No Surgical History Surgical History History of permanent cardiac pacemaker placement (~09/01/23) Status post cardiac catheterization History of cardiac cath Hx of cataract removal with insertion of prosthetic lens (~12/2014) Hx of section History of Problems with Anesthesia: No Social History Social History Household Members: Spouse Housing: House Do you presently have visiting nurse or other home services: No Alcohol intake: former Patient Tobacco Use Status: Never used Tobacco e-Cigarette/Vaping Use: Never Used Second Hand Smoke Exposure: No service: No Current occupational status: retired Cognitive needs: No Hearing needs: Yes Vision needs: No Meds Allergies Allergy/AdvReac Type Severity Reaction Status Date / Time Sulfa (Sulfonamide Allergy Intermediate Swollen Verified 09/16/24 08:48 Antibiotics) red eyes cefuroxime AdvReac Intermediate Stomach Uncoded 09/16/24 08:48 Upset Active Medications: Current Medications Acetaminophen (Acetaminophen 325 Mg Tablet) 650 mg PO Q6H PRN PRN Reason: Pain, Mild 1-3,fever,headache Atorvastatin Calcium (Atorvastatin Calcium 80 Mg Tablet) 80 mg PO DAILY REPLACED BY [facility] Last Admin: 09/17/24 07:38 Dose: 80 mg Calcium Carbonate (Calcium Carbonate 750 Mg Tab.Chew) 750 mg PO Q4H PRN PRN Reason: Heartburn Dronedarone (Dronedarone Hcl 400 Mg Tablet) 400 mg PO BID REPLACED BY [facility] Last Admin: 09/17/24 07:38 Dose: 400 mg Hydralazine HCl (Hydralazine Hcl 20 Mg/Ml Vial) 10 mg IVPUSH Q6H PRN; Protocol PRN Reason: SBP > 160 Lactated Ringer's (Lr) 1,000 mls @ 75 mls/hr IVCONT .[id number] REPLACED BY [facility] Last Admin: 09/17/24 06:23 Dose: 75 mls/hr Magnesium Hydroxide (Milk Of Magnesia 30 Ml Oral.Susp) 30 ml PO DAILY PRN PRN Reason: Constipation Melatonin (Melatonin 3 Mg Tablet) 6 mg PO BEDTIME PRN PRN Reason: Insomnia Naloxone HCl (Naloxone Hcl 0.4 Mg/Ml Vial) 0.04 mg IVPUSH Q5M PRN PRN Reason: Excessive sedation or RR < 8 Ondansetron HCl (Ondansetron Hcl 4 Mg/2 Ml Vial) 4 mg IVPUSH Q8H PRN PRN Reason: Nausea and Vomiting Pantoprazole Sodium (Pantoprazole Sodium 40 Mg/10 Ml Vial) 40 mg IVPUSH BID@0630,1630 REPLACED BY [facility] Last Admin: 09/17/24 06:25 Dose: 40 mg Polyethylene Glycol (Polyethylene Glycol 3350 17 Gm Powd.Pack) 17 gm PO DAILY PRN PRN Reason: Constipation Sodium Chloride (0.9 % Sodium Chloride Flush 3 Ml Syringe) 3 ml IVFLUSH QSHIFT REPLACED BY [facility] Last Admin: 09/17/24 07:37 Dose: Not Given Home Medications ?Medication ?Instructions ?Recorded ?Confirmed ?Last Taken ?Type cholecalciferol (vitamin D3) 50 50 mcg PO DAILY@1900 09/16/24 09/16/24 09/15/24 History mcg (2,000 unit) capsule fluticasone propionate 50 1 spray intranasal DAILY PRN 09/16/24 09/16/24 Unknown History mcg/actuation nasal Allergy Symptoms spray,suspension Exam Height,Weight and Vital Signs: Height 5 ft 2 in Weight 68.2 kg Last Vital Signs Temp 98.6 F 09/17/24 13:34 Pulse 60 09/17/24 13:34 Resp 16 09/17/24 13:34 BP 160/63 H 09/17/24 13:34 Pulse Ox 97 09/17/24 13:34 O2 Del Method Room Air 09/17/24 13:34 Pertinent Lab Results Pertinent Lab Results: Laboratory Tests 09/16/24 09/16/24 09/16/24 09:22 09:23 09:30 WBC 5.8 RBC 2.63 L D Hgb 6.6 L* D Hct 20.4 L* D MCV 77.6 L MCH 25.1 L MCHC 32.4 RDW 15.0 Plt Count 283 MPV 10.5 Immature Gran % (Auto) 0.3 Neut % (Auto) 73.9 H Lymph % (Auto) 14.7 L [place] % (Auto) 8.7 Eos % (Auto) 1.7 Baso % (Auto) 0.7 Lymph # (Auto) 0.9 L [place] # (Auto) 0.5 Eos # (Auto) 0.1 Baso # (Auto) 0.0 Abs Immat Gran (auto) 0.02 Absolute Neuts (auto) 4.3 Absolute Nucleated RBC 0.000 Nucleated RBC % (auto) 0.0 Smear Path Review SEE NOTE PT 18.7 H INR 1.6 H Sodium 139 Potassium 4.0 Chloride 111 H Carbon Dioxide 23 Anion Gap 9 L BUN 16 Creatinine 0.77 Estim Creat Clear Calc 57.2 Estimated GFR > 60 Random Glucose 109 Calcium 8.5 D Iron TIBC % Saturation Unsat Iron Binding Total Bilirubin 0.2 Direct Bilirubin < 0.2 AST 29 ALT 25 Alkaline Phosphatase 55 Troponin I High Sens 9.5 D B-Natriuretic Peptide 98 Total Protein 6.2 L Albumin 3.6 Lipase 34 Urine Color Urine Appearance Urine pH Ur Specific [place] Urine Protein Urine Glucose (UA) Urine Ketones Urine Blood Urine Nitrite Ur Leukocyte Esterase Urine RBC Urine WBC Ur Squamous Epith Cells Urine Bacteria Hyaline Casts Stool Occult Blood POSITIVE Blood Type O Positive Antibody Screen NEGATIVE Crossmatch See Detail 09/16/24 09/16/24 09/16/24 10:12 18:24 21:56 WBC RBC Hgb 9.4 L D 8.7 L Hct 28.0 L D 25.6 L MCV MCH MCHC RDW Plt Count MPV Immature Gran % (Auto) Neut % (Auto) Lymph % (Auto) [place] % (Auto) Eos % (Auto) Baso % (Auto) Lymph # (Auto) [place] # (Auto) Eos # (Auto) Baso # (Auto) Abs Immat Gran (auto) Absolute Neuts (auto) Absolute Nucleated RBC Nucleated RBC % (auto) Smear Path Review PT INR Sodium Potassium Chloride Carbon Dioxide Anion Gap BUN Creatinine Estim Creat Clear Calc Estimated GFR Random Glucose Calcium Iron TIBC % Saturation Unsat Iron Binding Total Bilirubin Direct Bilirubin AST ALT Alkaline Phosphatase Troponin I High Sens B-Natriuretic Peptide Total Protein Albumin Lipase Urine Color Yellow Urine Appearance Clear Urine pH 6.0 Ur Specific [place] 1.015 Urine Protein Negative Urine Glucose (UA) Negative Urine Ketones Negative Urine Blood Negative Urine Nitrite Negative Ur Leukocyte Esterase Trace H Urine RBC 0-2 Urine WBC 0-5 Ur Squamous Epith Cells 0-2 Urine Bacteria None Seen Hyaline Casts 0-2 Stool Occult Blood Blood Type Antibody Screen Crossmatch 09/17/24 06:17 WBC 5.7 RBC 3.31 L D Hgb 8.5 L Hct 25.7 L MCV 77.6 L MCH 25.7 L MCHC 33.1 RDW 15.7 Plt Count 236 MPV 10.7 Immature Gran % (Auto) 0.4 Neut % (Auto) 60.1 Lymph % (Auto) 23.7 [place] % (Auto) 11.0 Eos % (Auto) 3.9 Baso % (Auto) 0.9 Lymph # (Auto) 1.3 [place] # (Auto) 0.6 Eos # (Auto) 0.2 Baso # (Auto) 0.1 Abs Immat Gran (auto) 0.02 Absolute Neuts (auto) 3.4 Absolute Nucleated RBC 0.000 Nucleated RBC % (auto) 0.0 Smear Path Review PT INR Sodium 139 Potassium 3.7 Chloride 112 H Carbon Dioxide 23 Anion Gap 8 L BUN 11 Creatinine 0.67 Estim Creat Clear Calc 65.6 Estimated GFR > 60 Random Glucose 87 Calcium 8.4 Iron 107 TIBC 338 % Saturation 32 Unsat Iron Binding 231 Total Bilirubin Direct Bilirubin AST ALT Alkaline Phosphatase Troponin I High Sens B-Natriuretic Peptide 100 Total Protein Albumin Lipase Urine Color Urine Appearance Urine pH Ur Specific [place] Urine Protein Urine Glucose (UA) Urine Ketones Urine Blood Urine Nitrite Ur Leukocyte Esterase Urine RBC Urine WBC Ur Squamous Epith Cells Urine Bacteria Hyaline Casts Stool Occult Blood Blood Type Antibody Screen Crossmatch Airway Mallampati Class: II TM Dist: >3cm Neck ROM: Full Heart: rrr Lungs: cta Assessment and Plan Assessment Anesthesia Assessment: Anesthesia Plan Discussed and Chart Reviewed Final Anesthetic Review Family History of Problems with Anesthesia: No History of Problems with Anesthesia: No NPO: Yes ASA Class: III Final Preanesthetic Review: No Changes in Pt Med Stat, Meds/Allgs Chart Reviewed and Consent Obtained/Reviewed Patient Risk: Intermediate Procedure Risk: Intermediate Anesthetic Plan Anesthetic Plan: MAC: Disposition: Standard PACU
--- NOTE | 2024-09-17 13:55 | MHC.SHP ---
Pre-Procedural Eval Section A - 24 Hr Update-Section A only Date of Service: 09/17/24 The patient is an INPATIENT: Yes The patient has been examined within 24 hours of the surgical procedure. The History & Physical has been completed within 30 days and I have reviewed it.: Yes Section B - Complete if H&P > 30 days Chief Complaint: GIB, acute blood loss anemia Allergies: Allergies Allergy/AdvReac Type Severity Reaction Status Date / Time Sulfa (Sulfonamide Allergy Intermediate Swollen Verified 09/16/24 08:48 Antibiotics) red eyes cefuroxime AdvReac Intermediate Stomach Uncoded 09/16/24 08:48 Upset Plan Diagnosis/Plan: Unchanged I have reviewed the history and physical and performed a pertinent physical examination on my patient. No changes have occurred unless specified. EGD today Time Spent With Patient Time: Total time managing care of this patient today ____ minutes.
--- NOTE | 2024-09-17 14:08 | W.PM.OPN ---
Operative Note Operative Note Date of Service: 09/17/24 Narrative: Procedure Description: EGD Indication: melena Anesthesia: MAC FLEXIBLE TRANSORAL UPPER GASTROINTESTINAL ENDOSCOPY UPPER ENDOSCOPY Consent: Indications for the procedure and potential complications of bleeding, perforation, reaction to medications and missed diagnosis were discussed with the patient and informed consent was obtained. Instrument: Olympus GIF H 190 J mid size upper endoscope Monitoring: Vital signs and clinical assessment, continuous EKG monitoring, Pulse oximetry, Carbon Dioxide monitoring and blood pressure monitoring were done throughout the procedure. Procedure: The patient was placed in the left lateral decubitis position and pre-procedure medications were administered and a bite block was placed. The endoscope was inserted into the mouth and advanced under direct vision to the third part of duodenum. A careful inspection was made as the upper endoscope was withdrawn including a retroflexed examination of the proximal stomach; Findings and interventions are described below. Findings: Larynx:normal Esophagus: GE junction at 26 cm, diaphragm hiatus at 32 cm, consistent with 6 cm para esophageal hernia. few streaky linear erosions noted in the hernial sac. Stomach: normal . Grade 2 flap valve on retroflexed examination of the cardia. few fundic gland polyps seen Duodenum: Normal bulb and descending duodenum, Intervention: none Impression/Findings: para esophageal hernia maria del carmen erosions PLAN: colonoscopy tomorrow, cont with PPI o/p surgical consult for hernia repair GERD precautions
[2024-09-17 15:19] LABS: Hematocrit 26.3 % (37.0-47.0); Hemoglobin 8.8 g/dl (12.0-16.0)
[2024-09-17] MEDS: 0.9 % Sodium Chloride Flush 3 ML SYRINGE IVFLUSH ×2 (16:25→20:28)
[2024-09-17] MEDS: PEG 3350/Na Sulf,Bicarb,Cl/KCL 4,000 ML SOLN.RECON 4000 ML PO (18:12)
[2024-09-18 03:46] VITALS: BP 148/67; PULSE 60; RESP 18; TEMP 36.3; O2SAT 97
[2024-09-18] MEDS: Pantoprazole Sodium 40 MG/10 ML VIAL IVPUSH (05:36)
[2024-09-18 06:17] LABS: MANUAL DIFF FLAG NO
[2024-09-18 06:28] LABS: Basophils Percent Auto 0.5 % (0-2); Eosinophils Absolute Auto 0.3 X10*3/uL (0.0-0.4); Eosinophils Percent Auto 5.6 % (0-4); Hematocrit 24.7 % (37.0-47.0); Hemoglobin 8.4 g/dl (12.0-16.0); Imm Gran Abs Auto 0.03 X10*3/uL (0.00-0.03); Imm Gran Pct Auto 0.5 % (0.0-0.4); Lymphocytes Absolute Auto 1.1 X10*3/uL (1.2-4.9); Lymphocytes Percent Auto 20.4 % (20-40); Mean Corpuscular Hemoglobin 26.4 pg (27.0-33.0); Mean Corpuscular Volume 77.7 fL (80.0-98.0); Mean Platelet Volume 11.2 fL (9.4-12.3); Monocytes Absolute Auto 0.6 X10*3/uL (0.1-1.2); Monocytes Percent Auto 10.3 % (2-11); Neutrophils Absolute Auto 3.5 x10*3/uL (2.0-8.3); Neutrophils Percent Auto 62.7 % (45-73); Platelet Count 259 X10*3/uL (160-400); Red Blood Count 3.18 X10*6/uL (4.20-5.50); Red Cell Distribution Width 15.7 % (11.0-16.0); White Blood Count 5.5 X10*3/uL (4.8-10.8)
[2024-09-18 06:40] LABS: Anion Gap 10 (12-20); Blood Urea Nitrogen 7 mg/dL (9-16); Calcium 8.3 mg/dL (8.4-10.2); Carbon Dioxide 25 mmol/L (22-29); Chloride 109 mmol/L (96-108); Creatinine Clr Calc Pharmacy 73.3; Estimated Glomerular Filt Rate > 60; Glucose Random 82 mg/dL (60-115); Potassium 3.3 mmol/L (3.3-5.1); Sodium 141 mmol/L (135-145)
[2024-09-18 08:00] VITALS: BP 159/70; PULSE 60; RESP 16; TEMP 37.1; O2SAT 97
--- NOTE | 2024-09-18 08:24 | HO.POSTANES ---
Post Anesthesia Evaluation Post Anesthesia Evaluation Date of Service: 09/18/24 Vital Signs: Vital Signs Temp Pulse Resp BP Pulse Ox O2 Del Method 09/18/24 08:00 98.7 F 60 16 159/70 H 97 Room Air 09/18/24 03:46 97.3 F 60 18 148/67 H 97 Room Air Anesthesia: Monitored Mental Status: Awake Pain Control: Satisfactory Nausea/Vomiting: None Anesthesia-Related Issues: No Anes. Related Issues
[2024-09-18] MEDS: Dronedarone HCl 400 MG TABLET PO (09:18)
--- NOTE | 2024-09-18 10:31 | HO.PM.IMPN ---
Subjective Subjective Date of Service: 09/18/24 Interval History: Seen and examined this morning Follow-up for black stools Feeling nauseated, completed prep overnight with plan for colonoscopy today Review of Systems Review of Systems: Yes all other systems are reviewed and are negative Constitutional Constitutional: Denies chills and Denies fever(s) Physical Exam Vital Signs: Vital Signs: Last Vital Signs Temp 98.7 F 09/18/24 08:00 Pulse 60 09/18/24 08:00 Resp 16 09/18/24 08:00 BP 159/70 H 09/18/24 08:00 Pulse Ox 97 09/18/24 08:00 O2 Del Method Room Air 09/18/24 08:00 BMI result Body Mass Index 27.5 Const: General: cooperative, alert and awake Nutritional Appearance: average body habitus Orientation/consciousness: patient oriented x3 Resp: Effort & Inspection: normal respiratory effort, able to speak in complete sentences, no respiratory distress and no use of accessory muscles Cardio: Palpation: normal PMI GI: Inspection: No distended Palpation (GI): Soft to palpation and nontender Neuro: General: patient oriented x3, moves all extremities and CN's II-XI intact bilaterally Extrem: General: Yes no pedal edema Objective Data Active Medications Acetaminophen (Acetaminophen 325 Mg Tablet) 650 mg PO Q6H PRN PRN Reason: Pain, Mild 1-3,fever,headache Atorvastatin Calcium (Atorvastatin Calcium 80 Mg Tablet) 80 mg PO DAILY [facility] Last Admin: 09/18/24 10:23 Dose: Not Given Documented By: GLADYS Non-Admin Reason: NPO Calcium Carbonate (Calcium Carbonate 750 Mg Tab.Chew) 750 mg PO Q4H PRN PRN Reason: Heartburn Dronedarone (Dronedarone Hcl 400 Mg Tablet) 400 mg PO BID [facility] Last Admin: 09/18/24 09:18 Dose: 400 mg Documented By: GLADYS Hydralazine HCl (Hydralazine Hcl 20 Mg/Ml Vial) 10 mg IVPUSH Q6H PRN; Protocol PRN Reason: SBP > 160 Lactated Ringer's (Lr) 1,000 mls @ 75 mls/hr IVCONT .[id number] [facility] Last Infusion: 09/18/24 10:23 Dose: Infused Documented By: GLADYS Magnesium Hydroxide (Milk Of Magnesia 30 Ml Oral.Susp) 30 ml PO DAILY PRN PRN Reason: Constipation Melatonin (Melatonin 3 Mg Tablet) 6 mg PO BEDTIME PRN PRN Reason: Insomnia Naloxone HCl (Naloxone Hcl 0.4 Mg/Ml Vial) 0.04 mg IVPUSH Q5M PRN PRN Reason: Excessive sedation or RR < 8 Ondansetron HCl (Ondansetron Hcl 4 Mg/2 Ml Vial) 4 mg IVPUSH Q8H PRN PRN Reason: Nausea and Vomiting Pantoprazole Sodium (Pantoprazole Sodium 40 Mg/10 Ml Vial) 40 mg IVPUSH BID@0630,1630 [facility] Last Admin: 09/18/24 05:36 Dose: 40 mg Documented By: CHARLENE Polyethylene Glycol (Polyethylene Glycol 3350 17 Gm Powd.Pack) 17 gm PO DAILY PRN PRN Reason: Constipation Sodium Chloride (0.9 % Sodium Chloride Flush 3 Ml Syringe) 3 ml IVFLUSH QSHIFT [facility] Last Admin: 09/18/24 09:08 Dose: Not Given Documented By: GLADYS Non-Admin Reason: IV Running Labs 09/18/24 05:02 09/18/24 05:02 Labs: Laboratory Results - last 24 hr 09/16/24 09/18/24 09:23 05:02 MCV 77.7 L MCH 26.4 L MCHC 34.0 RDW 15.7 Plt Count 259 MPV 11.2 Immature Gran % (Auto) 0.5 H Neut % (Auto) 62.7 Lymph % (Auto) 20.4 [place] % (Auto) 10.3 Eos % (Auto) 5.6 H Baso % (Auto) 0.5 Lymph # (Auto) 1.1 L [place] # (Auto) 0.6 Eos # (Auto) 0.3 Baso # (Auto) 0.0 Abs Immat Gran (auto) 0.03 Absolute Neuts (auto) 3.5 Absolute Nucleated RBC 0.000 Nucleated RBC % (auto) 0.0 Smear Path Review SEE NOTE Anion Gap 10 L Estim Creat Clear Calc 73.3 Estimated GFR > 60 Random Glucose 82 Calcium 8.3 L Assessment and Plan (1) Acute GI bleeding: Status: Acute Plan 73-year-old female with history of paroxysmal atrial fibrillation anticoagulated with Eliquis on Multaq, sick sinus syndrome s/p pacemaker, GERD, hyperlipidemia admitted for further management of upper GI bleed. acute upper GI bleed with acute blood loss anemia s/p 2u rbc 09/16; s/p kcentra hold Eliquis Continue IV PPI Seen by GI, underwent endoscopy 09/17, no source of bleeding found Plan for colonoscopy today paroxysmal atrial fibrillation hold Eliquis Continue Multaq HLD continue statin SSS s/p pacemaker DVT prophylaxis- scps Full code Patient requires ongoing inpatient stay for management of acute upper GI bleed with blood loss anemia requiring transfusions, IV ppi, and inpatient colonoscopy with close monitoring of hemodynamics Quality Stroke Does the patient have a stroke diagnosis?: No Reason for No Anti-thrombotic by Day Two: Contraindicated VTE Prior VTE?: No VTE Risk Level:: Medical - moderate - high VTE Device Contraindication: N/A - Device Ordered VTE Drug Contraindication: Treatment Not Tolerated
--- NOTE | 2024-09-18 10:52 | PM.GIPN ---
Subjective Subjective Date of Service: 09/18/24 Interval History: HGb stable no abdominal pain no rectal bleeding or melena Critical Care Time (minutes): 0 Physical Exam Vital Signs: Vital Signs: Last Vital Signs Temp 98.7 F 09/18/24 08:00 Pulse 60 09/18/24 08:00 Resp 16 09/18/24 08:00 BP 159/70 H 09/18/24 08:00 Pulse Ox 97 09/18/24 08:00 O2 Del Method Room Air 09/18/24 08:00 BMI result Body Mass Index 27.5 EXAM: GENERAL: The patient is well developed and nontoxic. VITAL SIGNS:see workflow HEENT: Nonicteric sclerae, PERRLA, EOMI. Oropharynx clear. Moist mucous membranes. Conjunctivae appear well perfused. No thyroid mass. CHEST: Chest wall is nontender. HEART: Regular rate and rhythm without murmurs. LUNGS: Clear to auscultation bilaterally. ABDOMEN: Soft, positive bowel sounds, nontender, no organomegaly.no flank tenderness SKIN: No rash, no excessive bruising, petechiae, or purpura. NEUROLOGIC: Cranial nerves II-XII intact without motor/sensory deficit. Psych: normal affect Objective Data Labs 09/18/24 05:02 09/18/24 05:02 Labs: Laboratory Results - last 24 hr 09/17/24 09/18/24 15:10 05:02 WBC 5.5 RBC 3.18 L Hgb 8.8 L 8.4 L Hct 26.3 L 24.7 L MCV 77.7 L MCH 26.4 L MCHC 34.0 RDW 15.7 Plt Count 259 MPV 11.2 Immature Gran % (Auto) 0.5 H Neut % (Auto) 62.7 Lymph % (Auto) 20.4 [place] % (Auto) 10.3 Eos % (Auto) 5.6 H Baso % (Auto) 0.5 Lymph # (Auto) 1.1 L [place] # (Auto) 0.6 Eos # (Auto) 0.3 Baso # (Auto) 0.0 Abs Immat Gran (auto) 0.03 Absolute Neuts (auto) 3.5 Absolute Nucleated RBC 0.000 Nucleated RBC % (auto) 0.0 Sodium 141 Potassium 3.3 Chloride 109 H Carbon Dioxide 25 Anion Gap 10 L BUN 7 L Creatinine 0.60 Estim Creat Clear Calc 73.3 Estimated GFR > 60 Random Glucose 82 Calcium 8.3 L Procedures Date of Service Date of Service: 09/18/24 Progress Note: A&P Assessment and plan (1) Acute GI bleeding: Status: Acute Plan 1/ Melena, no obvious active bleeding source seen on EGD yesterday, did prep had some black stool at beginning of prep but then cleared up PLAN: /1 - colonoscopy today, if neg then restart eliquis tomorrow and o/p capsule endoscopy Time Spent With Patient Time: Total time managing care of this patient today ____ minutes. Quality Stroke Does the patient have a stroke diagnosis?: No Reason for No Anti-thrombotic by Day Two: Contraindicated VTE Prior VTE?: No VTE Risk Level:: Medical - moderate - high VTE Device Contraindication: N/A - Device Ordered VTE Drug Contraindication: Treatment Not Tolerated
[2024-09-18 10:53] VITALS: BP 153/64; PULSE 60; RESP 18; TEMP 37.2; O2SAT 97
--- NOTE | 2024-09-18 11:00 | P.CONAN_ITS ---
HPI - Anesthesia Eval Consult details Narrative: for colonoscopy [facility] Active Problems Active Problems: All Active Problems HTN (hypertension) (Acute) Cardiomegaly (Chronic) Chronic interstitial lung disease (Chronic) Hiatal hernia (Chronic) Acute GI bleeding (Acute) Cough (Acute) Pharyngeal abscess (Acute) Food allergy (Acute) Swelling of lymph node (Acute) Osteoarthritis of left knee (Acute) Low back pain (Acute) Left knee pain (Acute) Left hip pain (Acute) Cardiac pacemaker in situ (Chronic) Pre-syncope (Acute) Atherosclerotic cardiovascular disease (Acute) GERD (gastroesophageal reflux disease) (Acute) Abnormal pharmacologic myocardial perfusion study (Acute) Lightheadedness (Acute) Sick sinus syndrome (Acute) Paroxysmal atrial fibrillation (Chronic) Sick sinus syndrome (Acute) Neck pain (Acute) Personal history of kidney stones (Acute) Flank pain (Acute) PAC (premature atrial contraction) (Acute) Dysuria (Acute) UTI symptoms (Acute) Palpitations (Acute) Eustachian tube dysfunction (Acute) Postnasal drip (Acute) Right otitis media (Acute) Breast cancer screening (Acute) Sinusitis (Acute) Abdominal pain (Acute) SOB (shortness of breath) on exertion (Acute) History of cardiac cath (Acute) Status post cardiac catheterization (Acute) Left atrial dilatation (Acute) Orthostatic lightheadedness (Acute) Pain and swelling of left lower leg (Acute) Exertional dyspnea (Acute) Swelling of joint of left hand (Acute) Pain in joint of left hand (Acute) Overweight (BMI 25.0-29.9) (Acute) Allergic rhinitis (Chronic) Pure hypercholesterolemia (Acute) Osteoarthritis (Chronic) Dyslipidemia (Acute) Vitamin D deficiency (Chronic) Age related osteoporosis (Acute) Past Medical History Medical History Cardiac pacemaker in situ Visit for wound check Dizziness GERD (gastroesophageal reflux disease) Sick sinus syndrome Atrial fibrillation with rapid ventricular response Atrial fibrillation History of transesophageal echocardiography (ELIGIO) Left atrial dilatation Orthostatic lightheadedness Pain and swelling of left lower leg Exertional dyspnea Swelling of joint of left hand Pain in joint of left hand Overweight (BMI 25.0-29.9) Allergic rhinitis Pure hypercholesterolemia Osteoarthritis Dyslipidemia Vitamin D deficiency Age related osteoporosis Family History Family History Mother Prediabetes Hyperlipidemia Hypertension Father No problems noted. Family history of problems with anesthesia: No Surgical History Surgical History History of permanent cardiac pacemaker placement (~09/01/23) Status post cardiac catheterization History of cardiac cath Hx of cataract removal with insertion of prosthetic lens (~12/2014) Hx of section History of Problems with Anesthesia: No Social History Social History Household Members: Spouse Housing: House Do you presently have visiting nurse or other home services: No Alcohol intake: former Patient Tobacco Use Status: Never used Tobacco e-Cigarette/Vaping Use: Never Used Second Hand Smoke Exposure: No service: No Current occupational status: retired Cognitive needs: No Hearing needs: Yes Vision needs: No Meds Allergies Allergy/AdvReac Type Severity Reaction Status Date / Time Sulfa (Sulfonamide Allergy Intermediate Swollen Verified 09/16/24 08:48 Antibiotics) red eyes cefuroxime AdvReac Intermediate Stomach Uncoded 09/16/24 08:48 Upset Active Medications: Current Medications Acetaminophen (Acetaminophen 325 Mg Tablet) 650 mg PO Q6H PRN PRN Reason: Pain, Mild 1-3,fever,headache Atorvastatin Calcium (Atorvastatin Calcium 80 Mg Tablet) 80 mg PO DAILY REPLACED BY [facility] Last Admin: 09/18/24 10:23 Dose: Not Given Calcium Carbonate (Calcium Carbonate 750 Mg Tab.Chew) 750 mg PO Q4H PRN PRN Reason: Heartburn Dronedarone (Dronedarone Hcl 400 Mg Tablet) 400 mg PO BID REPLACED BY [facility] Last Admin: 09/18/24 09:18 Dose: 400 mg Hydralazine HCl (Hydralazine Hcl 20 Mg/Ml Vial) 10 mg IVPUSH Q6H PRN; Protocol PRN Reason: SBP > 160 Lactated Ringer's (Lr) 1,000 mls @ 75 mls/hr IVCONT .[id number] REPLACED BY [facility] Last Infusion: 09/18/24 10:23 Dose: Infused Magnesium Hydroxide (Milk Of Magnesia 30 Ml Oral.Susp) 30 ml PO DAILY PRN PRN Reason: Constipation Melatonin (Melatonin 3 Mg Tablet) 6 mg PO BEDTIME PRN PRN Reason: Insomnia Naloxone HCl (Naloxone Hcl 0.4 Mg/Ml Vial) 0.04 mg IVPUSH Q5M PRN PRN Reason: Excessive sedation or RR < 8 Ondansetron HCl (Ondansetron Hcl 4 Mg/2 Ml Vial) 4 mg IVPUSH Q8H PRN PRN Reason: Nausea and Vomiting Pantoprazole Sodium (Pantoprazole Sodium 40 Mg/10 Ml Vial) 40 mg IVPUSH BID@0630,1630 REPLACED BY [facility] Last Admin: 09/18/24 05:36 Dose: 40 mg Polyethylene Glycol (Polyethylene Glycol 3350 17 Gm Powd.Pack) 17 gm PO DAILY PRN PRN Reason: Constipation Sodium Chloride (0.9 % Sodium Chloride Flush 3 Ml Syringe) 3 ml IVFLUSH QSHIFT REPLACED BY [facility] Last Admin: 09/18/24 09:08 Dose: Not Given Home Medications ?Medication ?Instructions ?Recorded ?Confirmed ?Last Taken ?Type cholecalciferol (vitamin D3) 50 50 mcg PO DAILY@1900 09/16/24 09/16/24 09/15/24 History mcg (2,000 unit) capsule fluticasone propionate 50 1 spray intranasal DAILY PRN 09/16/24 09/16/24 Unknown History mcg/actuation nasal Allergy Symptoms spray,suspension Exam Height,Weight and Vital Signs: Height 5 ft 2 in Weight 68.2 kg Last Vital Signs Temp 99 F 09/18/24 10:53 Pulse 60 09/18/24 10:53 Resp 18 09/18/24 10:53 BP 153/64 H 09/18/24 10:53 Pulse Ox 97 09/18/24 10:53 O2 Del Method Room Air 09/18/24 10:53 Pertinent Lab Results Pertinent Lab Results: Laboratory Tests 09/16/24 09/16/24 09/16/24 09:22 09:23 09:30 WBC 5.8 RBC 2.63 L D Hgb 6.6 L* D Hct 20.4 L* D MCV 77.6 L MCH 25.1 L MCHC 32.4 RDW 15.0 Plt Count 283 MPV 10.5 Immature Gran % (Auto) 0.3 Neut % (Auto) 73.9 H Lymph % (Auto) 14.7 L [place] % (Auto) 8.7 Eos % (Auto) 1.7 Baso % (Auto) 0.7 Lymph # (Auto) 0.9 L [place] # (Auto) 0.5 Eos # (Auto) 0.1 Baso # (Auto) 0.0 Abs Immat Gran (auto) 0.02 Absolute Neuts (auto) 4.3 Absolute Nucleated RBC 0.000 Nucleated RBC % (auto) 0.0 Smear Path Review SEE NOTE PT 18.7 H INR 1.6 H Sodium 139 Potassium 4.0 Chloride 111 H Carbon Dioxide 23 Anion Gap 9 L BUN 16 Creatinine 0.77 Estim Creat Clear Calc 57.2 Estimated GFR > 60 Random Glucose 109 Calcium 8.5 D Iron TIBC % Saturation Unsat Iron Binding Total Bilirubin 0.2 Direct Bilirubin < 0.2 AST 29 ALT 25 Alkaline Phosphatase 55 Troponin I High Sens 9.5 D B-Natriuretic Peptide 98 Total Protein 6.2 L Albumin 3.6 Lipase 34 Urine Color Urine Appearance Urine pH Ur Specific [place] Urine Protein Urine Glucose (UA) Urine Ketones Urine Blood Urine Nitrite Ur Leukocyte Esterase Urine RBC Urine WBC Ur Squamous Epith Cells Urine Bacteria Hyaline Casts Stool Occult Blood POSITIVE Blood Type O Positive Antibody Screen NEGATIVE Crossmatch See Detail 09/16/24 09/16/24 09/16/24 10:12 18:24 21:56 WBC RBC Hgb 9.4 L D 8.7 L Hct 28.0 L D 25.6 L MCV MCH MCHC RDW Plt Count MPV Immature Gran % (Auto) Neut % (Auto) Lymph % (Auto) [place] % (Auto) Eos % (Auto) Baso % (Auto) Lymph # (Auto) [place] # (Auto) Eos # (Auto) Baso # (Auto) Abs Immat Gran (auto) Absolute Neuts (auto) Absolute Nucleated RBC Nucleated RBC % (auto) Smear Path Review PT INR Sodium Potassium Chloride Carbon Dioxide Anion Gap BUN Creatinine Estim Creat Clear Calc Estimated GFR Random Glucose Calcium Iron TIBC % Saturation Unsat Iron Binding Total Bilirubin Direct Bilirubin AST ALT Alkaline Phosphatase Troponin I High Sens B-Natriuretic Peptide Total Protein Albumin Lipase Urine Color Yellow Urine Appearance Clear Urine pH 6.0 Ur Specific [place] 1.015 Urine Protein Negative Urine Glucose (UA) Negative Urine Ketones Negative Urine Blood Negative Urine Nitrite Negative Ur Leukocyte Esterase Trace H Urine RBC 0-2 Urine WBC 0-5 Ur Squamous Epith Cells 0-2 Urine Bacteria None Seen Hyaline Casts 0-2 Stool Occult Blood Blood Type Antibody Screen Crossmatch 09/17/24 09/17/24 09/18/24 06:17 15:10 05:02 WBC 5.7 5.5 RBC 3.31 L D 3.18 L Hgb 8.5 L 8.8 L 8.4 L Hct 25.7 L 26.3 L 24.7 L MCV 77.6 L 77.7 L MCH 25.7 L 26.4 L MCHC 33.1 34.0 RDW 15.7 15.7 Plt Count 236 259 MPV 10.7 11.2 Immature Gran % (Auto) 0.4 0.5 H Neut % (Auto) 60.1 62.7 Lymph % (Auto) 23.7 20.4 [place] % (Auto) 11.0 10.3 Eos % (Auto) 3.9 5.6 H Baso % (Auto) 0.9 0.5 Lymph # (Auto) 1.3 1.1 L [place] # (Auto) 0.6 0.6 Eos # (Auto) 0.2 0.3 Baso # (Auto) 0.1 0.0 Abs Immat Gran (auto) 0.02 0.03 Absolute Neuts (auto) 3.4 3.5 Absolute Nucleated RBC 0.000 0.000 Nucleated RBC % (auto) 0.0 0.0 Smear Path Review PT INR Sodium 139 141 Potassium 3.7 3.3 Chloride 112 H 109 H Carbon Dioxide 23 25 Anion Gap 8 L 10 L BUN 11 7 L Creatinine 0.67 0.60 Estim Creat Clear Calc 65.6 73.3 Estimated GFR > 60 > 60 Random Glucose 87 82 Calcium 8.4 8.3 L Iron 107 TIBC 338 % Saturation 32 Unsat Iron Binding 231 Total Bilirubin Direct Bilirubin AST ALT Alkaline Phosphatase Troponin I High Sens B-Natriuretic Peptide 100 Total Protein Albumin Lipase Urine Color Urine Appearance Urine pH Ur Specific [place] Urine Protein Urine Glucose (UA) Urine Ketones Urine Blood Urine Nitrite Ur Leukocyte Esterase Urine RBC Urine WBC Ur Squamous Epith Cells Urine Bacteria Hyaline Casts Stool Occult Blood Blood Type Antibody Screen Crossmatch Airway Mallampati Class: II TM Dist: <=3cm Neck ROM: Full Denture: Upper and Lower Heart: ok, see above. Lungs: ok. Assessment and Plan Assessment Anesthesia Assessment: Anesthesia Plan Discussed and Chart Reviewed Final Anesthetic Review Family History of Problems with Anesthesia: No History of Problems with Anesthesia: No NPO: Yes ASA Class: III Final Preanesthetic Review: No Changes in Pt Med Stat, Meds/Allgs Chart Reviewed, Consent Obtained/Reviewed and Anes Risks/Benef Reviewed Patient Risk: High Procedure Risk: Low Anesthetic Plan Anesthetic Plan: MAC: and Agree w/ Assess. and Plan Disposition: Standard PACU
--- NOTE | 2024-09-18 11:00 | MHC.SHP ---
Pre-Procedural Eval Section A - 24 Hr Update-Section A only Date of Service: 09/18/24 The patient is an INPATIENT: Yes The patient has been examined within 24 hours of the surgical procedure. The History & Physical has been completed within 30 days and I have reviewed it.: Yes Section B - Complete if H&P > 30 days Chief Complaint: GIB, acute blood loss anemia Allergies: Allergies Allergy/AdvReac Type Severity Reaction Status Date / Time Sulfa (Sulfonamide Allergy Intermediate Swollen Verified 09/16/24 08:48 Antibiotics) red eyes cefuroxime AdvReac Intermediate Stomach Uncoded 09/16/24 08:48 Upset Plan Diagnosis/Plan: Unchanged I have reviewed the history and physical and performed a pertinent physical examination on my patient. No changes have occurred unless specified. Time Spent With Patient Time: Total time managing care of this patient today ____ minutes.
--- NOTE | 2024-09-18 11:43 | HO.OPN-COLON ---
Colonoscopy Operative Note Operative Note Date of Service: 09/18/24 Narrative: Operative Information Procedure Description: Colonoscopy Indication: melena Anesthesia: MAC COLONOSCOPY Instrument: Olympus variable stiffness pediatric scope 190L switched to upper scope Colonoscopy Monitoring: Vital signs and clinical assessment, continuous EKG monitoring, Pulse oximetry, Carbon Dioxide monitoring and blood pressure monitoring were done throughout the procedure. Colon withdrawal time was 5 minutes. Procedure: The patient was placed in the left lateral decubitis position and pre-procedure medications were administered. After a digital rectal examination of the ano-rectum, the video colonoscope was inserted into the rectum and advanced through the colon to the cecum/TI. The colonoscope was slowly withdrawn in a retrograde panoramic fashion and the colon mucosa was carefully examined including a retroflexed view of the rectum. Findings and interventions are described below. Procedure Difficulty: difficult, due to tight angles Findings: Terminal Ileum-normal Cecum:normal Ascending Colon: normal Transverse Colon -normal Descending Colon: moderate diverticulosis Sigmoid Colon: severe diverticulosis, with tight angles Rectum: Retroflexion with small internal hemorrhoids seen, grade I Anorectum - normal Intervention: none Colon preparation: [place] Bowel Preparation Scale Right colon; 2 Transverse colon: 2 Left colon; 2 (0 = Unprepared colon segment with mucosa not seen due to solid stool that cannot be cleared. 1 = Portion of mucosa of the colon segment seen, but other areas of the colon segment not well seen due to staining, residual stool and/or opaque liquid. 2 = Minor amount of residual staining, small fragments of stool and/or opaque liquid, but mucosa of colon segment seen well. 3 = Entire mucosa of colon segment seen well with no residual staining, small fragments of stool or opaque liquid) Impression and Post Procedure Diagnosis: diverticulosis-severe internal hemorrhoids Plan: High fiber diet leaflet Avoid straining at stool, epsom salts and sitz bath, anusol supps or cream Repeat Colonoscopy for screening not indicated given age can restart eliquis tomorrow, keep on scheduled PPI outpatient capsule endoscopy Above findings were reviewed with the patient and relevant handouts were provided if indicated.
[2024-09-18 11:51] VITALS: BP 103/49; PULSE 60; RESP 18; TEMP 36.2; O2SAT 96
[2024-09-18 12:08] VITALS: BP 128/62; PULSE 61; RESP 18; TEMP 36.1; O2SAT 97
--- NOTE | 2024-09-18 14:47 | P.DS_ITS ---
DS: Providers Provider Date of Service: 09/18/24 Date of admission: 09/16/24 13:47 Date of discharge: 09/18/24 Primary care physician: Bernabe Peterson MD Attending physician on discharge: Rito Brambila Discharging clinician: Bethany Max DS: Diagnosis Discharge Diagnosis (1) Acute GI bleeding: Status: Acute DS: Summary Hospital Course Hospital Course: From H&P on the day of admission 73-year-old female with history of paroxysmal atrial fibrillation anticoagulated with Eliquis on Multaq, sick sinus syndrome s/p pacemaker, GERD, hyperlipidemia presented to the ED earlier today for evaluation of black stool. The patient states that for the last 2 days has been experiencing multiple episodes of black tarry stool. She has continue taking Eliquis despite this. She states that her legs have also felt weak with some paresthesias and she has had intermittent dyspnea. Denies any nausea, vomiting, hematemesis, bright red blood per rectum, lightheadedness, palpitations, chest pain. No fevers or chills. Last dose of Eliquis was this morning. On arrival to the ED, vital signs stable. H/H 6.6/20.4% renal function and electrolyte levels normal. Troponin within normal limits. BNP 98. Urinalysis unremarkable. Stool occult blood positive. Chest x-ray negative for any acute cardiopulmonary abnormality. EKG shows atrial paced rhythm with rate 60, right bundle branch block, unchanged from prior EKGs. Seen by Gastroenterology while in the ED recommending IV ppi, clear liquids, transfusions and plan for EGD either tomorrow or depending on clinical course. In the ED, has received 2 units packed red blood cells, and IV pantoprazole. acute upper GI bleed with acute blood loss anemia s/p 2u rbc 09/16; s/p kcentra. Patient was started on IV PPI. Seen by GI, underwent endoscopy 09/17, no source of bleeding found; did show paraesophageal hernia, recommend outpatient surgical evaluation for consideration of surgical repair. Underwent colonoscopy 09/18 -showing severe diverticulosis with internal hemorrhoids, no active bleeding. Recommend high-fiber diet, avoid straining with stool, continue PPI, can resume Eliquis tomorrow. Recommend outpatient capsule endoscopy. H/H has remained stable since blood transfusion, repeat CBC in one week. Time Attestation Discharge Coordination Time (in mins): 35 Quality: Safe Use of Opioids Does Pt have an Active Cancer Diagnosis on the Problem List?: No Quality: Stroke Does the patient have a stroke diagnosis?: No Physical Exam Vital Signs: Vital Signs: Last Vital Signs Temp 97.0 F 09/18/24 12:08 Pulse 61 09/18/24 12:08 Resp 18 09/18/24 12:08 BP 128/62 09/18/24 12:08 Pulse Ox 97 09/18/24 12:08 O2 Del Method Room Air 09/18/24 12:08 BMI result Body Mass Index 27.5 Const: General: cooperative, comfortable, no acute distress, alert and awake Nutritional Appearance: average body habitus Orientation/consciousness: patient oriented x3 Resp: Effort & Inspection: normal respiratory effort, able to speak in complete sentences, no respiratory distress and no use of accessory muscles Cardio: Palpation: normal PMI GI: Inspection: No distended Palpation (GI): Soft to palpation and nontender Neuro: General: patient oriented x3 DS: Data Data Completed and Pending Completed studies during hospitalization [Text1]: Procedures Insertion of Pacemaker Lead into Right Atrium, Percutaneous Endoscopic Approach (08/31/23) Insertion of Pacemaker Lead into Right Ventricle, Percutaneous Endoscopic Approach (08/31/23) Insertion of Pacemaker, Dual Chamber into Chest Subcutaneous Tissue and Fascia, Open Approach (08/31/23) Zoroastrian of Cardiac Rhythm, Single (07/29/23) Ultrasonography of Heart with Aorta, Transesophageal (07/29/23) Labs on day of discharge: Laboratory Results - last 24 hr 09/17/24 09/18/24 15:10 05:02 WBC 5.5 RBC 3.18 L Hgb 8.8 L 8.4 L Hct 26.3 L 24.7 L MCV 77.7 L MCH 26.4 L MCHC 34.0 RDW 15.7 Plt Count 259 MPV 11.2 Immature Gran % (Auto) 0.5 H Neut % (Auto) 62.7 Lymph % (Auto) 20.4 [place] % (Auto) 10.3 Eos % (Auto) 5.6 H Baso % (Auto) 0.5 Lymph # (Auto) 1.1 L [place] # (Auto) 0.6 Eos # (Auto) 0.3 Baso # (Auto) 0.0 Abs Immat Gran (auto) 0.03 Absolute Neuts (auto) 3.5 Absolute Nucleated RBC 0.000 Nucleated RBC % (auto) 0.0 Sodium 141 Potassium 3.3 Chloride 109 H Carbon Dioxide 25 Anion Gap 10 L BUN 7 L Creatinine 0.60 Estim Creat Clear Calc 73.3 Estimated GFR > 60 Random Glucose 82 Calcium 8.3 L Discharge Plan Discharge Anticipated Discharge Date/Time: 09/18/24 14:53 Patient Disposition: Home, Self-Care Discharge Diagnosis: Acute GI bleed/acute blood loss anemia Hiatal hernia Referrals: Bernabe Peterson MD [Primary Care Provider] - 1 Week Grecia Gutierrez MD [Physician] - 1 Week (Outpatient capsule endoscopy) Jordan Bajwa MD [Physician] - 1 Week (Evaluation for surgical repair of paraesophageal hernia recommended by GI) Discharge Medications: New omeprazole 40 mg capsule,delayed release(DR/EC) 40 mg PO DAILY Qty: 90 0RF Continued rosuvastatin [Crestor] 40 mg tablet 40 mg PO DAILY Qty: 90 3RF Eliquis 5 mg tablet 5 mg PO BID Qty: 180 3RF Multaq 400 mg tablet 400 mg PO BID Qty: 60 5RF fluticasone propionate 50 mcg/actuation spray,suspension 1 spray intranasal DAILY PRN (Reason: Allergy Symptoms) cholecalciferol (vitamin D3) 50 mcg (2,000 unit) capsule 50 mcg PO DAILY@1900 Discharge Orders: Discharge Order (Routine); Ordered 09/18/24 Ordered By: Bethany Max Activity on Discharge: As tolerated Stand Alone Forms: Patient Portal Discharge page Print Language: German Other Ambulatory Orders: Complete Blood Count no Diff (Routine) Timeframe: 1 Week Facility: [facility] - Location: Laboratory Ordered By: Bethany Max Care Plan Goals: See below Health Concerns: Acute GI bleeding/acute blood loss anemia Hiatal/paraesophageal hernia Internal hemorrhoids/diverticulosis Plan of Treatment: Recommend outpatient capsule endoscopy- GI office will call to schedule an appointment Recommend surgical referral for consideration of hiatal hernia repair-call to schedule an appointment Start taking omeprazole 40 mg daily Can resume Eliquis 3/21 am Recommend high-fiber diet, stool softeners as needed to avoid straining with stools Repeat CBC in one week call PCP or return to ED with new or worsening symptoms Assessment: See discharge summary
--- NOTE | 2024-09-18 15:07 | MHC.CM.PN ---
IMM 09/17/24 Patient is discharged to home today self care. She has arranged for transport home.
== END 2024-09-18 15:46 | disposition home or self-care (01) | DRG 378 ==
LOC: HO.ED 13:46 → HO.EDOVER 13:48 → HO.S3 16:55
PROVIDERS: Internal Medicine Gastroenterology; Nurse Practitioner Family; Physician Assistant; Admitting Provider Internal Medicine; Emergency Provider Emergency Medicine Emergency Medical Services; PCP Internal Medicine; Visit Provider Physician Assistant Medical
PROC: 0DJ08ZZ Inspection of Upper Intestinal Tract, Via Natural or Artificial Opening Endoscopic (ICD-10-PCS; CPT 43235; principal; 2024-09-17 12:40)
PROC: 0DJD8ZZ Inspection of Lower Intestinal Tract, Via Natural or Artificial Opening Endoscopic (ICD-10-PCS; CPT 45378; principal; 2024-09-18 11:10)
DX: K57.31 Diverticulosis of large intestine without perforation or abscess with bleeding (principal); D62 Acute posthemorrhagic anemia; I48.0 Paroxysmal atrial fibrillation; K64.0 First degree hemorrhoids; K44.9 Diaphragmatic hernia without obstruction or gangrene; E78.5 Hyperlipidemia, unspecified; I49.5 Sick sinus syndrome; K31.7 Polyp of stomach and duodenum; I25.10 Atherosclerotic heart disease of native coronary artery without angina pectoris; Z95.0 Presence of cardiac pacemaker; Z79.01 Long term (current) use of anticoagulants; Z79.899 Other long term (current) drug therapy
CPT/HCPCS: 36415; 71045; 80048; 80076; 81001; 82272; 83540; 83690; 83880; 84484; 85014; 85018; 85025; 85610; 86850; 86900; 86901; 86920; 86923; 93005; 99285; J2003; J2470; J2704; J3010; J7120; J7168; P9016

== ENCOUNTER → 2024-09-16 09:08 | Outpatient (BNV) | payer MEDICARE, SELFPAY | PROVIDERS: Emergency Provider Emergency Medicine Emergency Medical Services; PCP Internal Medicine; Visit Provider Radiology Diagnostic Radiology | DX: J84.9 Interstitial pulmonary disease, unspecified (principal); K44.9 Diaphragmatic hernia without obstruction or gangrene | CPT/HCPCS: 71045 ==

== ENCOUNTER → 2024-09-16 09:08 | Outpatient (BNV) | payer MEDICARE, SELFPAY | PROVIDERS: Admitting Provider Internal Medicine; Emergency Provider Emergency Medicine Emergency Medical Services; PCP Internal Medicine; Visit Provider Internal Medicine Cardiovascular Disease | DX: R06.02 Shortness of breath (principal); I45.10 Unspecified right bundle-branch block; R94.31 Abnormal electrocardiogram [ECG] [EKG] | CPT/HCPCS: 93010 ==

== ENCOUNTER → 2024-09-16 13:47 | Outpatient (BNV) | payer MEDICARE, SELFPAY | PROVIDERS: Admitting Provider Internal Medicine; Emergency Provider Emergency Medicine Emergency Medical Services; PCP Internal Medicine; Visit Provider Physician Assistant | DX: K92.2 Gastrointestinal hemorrhage, unspecified (principal); D64.9 Anemia, unspecified | CPT/HCPCS: 99223; 99239; 99499 ==

== ENCOUNTER → 2024-09-16 13:47 | Outpatient (BNV) | payer MEDICARE, SELFPAY | PROVIDERS: Admitting Provider Internal Medicine; Emergency Provider Emergency Medicine Emergency Medical Services; PCP Internal Medicine; Visit Provider Internal Medicine Gastroenterology | DX: K92.2 Gastrointestinal hemorrhage, unspecified (principal) | CPT/HCPCS: 45378; 99223; 99232 ==

== ENCOUNTER 2024-09-24 08:08 | Outpatient (REF) | payer MEDICARE, SELFPAY ==
[2024-09-24 09:30] LABS: Hematocrit 32.4 % (37.0-47.0); Hemoglobin 10.2 g/dl (12.0-16.0); Mean Corpuscular HGB Conc 31.5 g/dl (31.0-35.0); Mean Corpuscular Hemoglobin 25.8 pg (27.0-33.0); Mean Platelet Volume 11.3 fL (9.4-12.3); Platelet Count 312 X10*3/uL (160-400); Red Blood Count 3.95 X10*6/uL (4.20-5.50); Red Cell Distribution Width 16.5 % (11.0-16.0); White Blood Count 4.9 X10*3/uL (4.8-10.8)
[2024-09-24 10:14] LABS: B Type Natriuretic Peptide 57 pg/mL (<100)
== END 2024-09-24 08:09 | disposition home or self-care (01) ==
LOC: HO.LAB 08:08
PROVIDERS: Internal Medicine Cardiovascular Disease; Physician Assistant Medical; PCP Internal Medicine; Visit Provider Internal Medicine Gastroenterology
DX: K92.2 Gastrointestinal hemorrhage, unspecified (principal); I48.0 Paroxysmal atrial fibrillation; I25.10 Atherosclerotic heart disease of native coronary artery without angina pectoris
CPT/HCPCS: 36415; 83880; 85027

== ENCOUNTER 2024-09-25 16:11 | Outpatient (REF) | payer MEDICARE, SELFPAY ==
--- NOTE | ~2024-09-25 | XR_ITS ---
EXAMINATION: XR ABDOMEN 1 VIEW (KUB) HISTORY: T18.9XXA - Foreign body of alimentary tract, part unspecified, evaluate for retained endoscopic capsule COMPARISON: Comparison is made with the prior examination dated 12/09/2019. FINDINGS: A single supine view of the abdomen is submitted. The bowel gas pattern is unremarkable, without evidence of mechanical obstruction. There are phleboliths in the left hemipelvis. No radiopaque foreign body is identified. There are no abnormal soft tissue masses. There is narrowing of both hip joints. XR/XR KUB IMPRESSION: No radiopaque foreign body is identified. Electronically signed by: Al Lo MD 09/26/2024 07:49 AM EDT
== END 2024-09-25 16:12 | disposition home or self-care (01) ==
LOC: HO.HMGCX 16:11
PROVIDERS: PCP Internal Medicine; Visit Provider Internal Medicine Gastroenterology
DX: T18.9XXA Foreign body of alimentary tract, part unspecified, initial encounter (principal)
CPT/HCPCS: 74018

== ENCOUNTER → 2024-09-25 16:15 | Outpatient (BNV) | payer MEDICARE, SELFPAY | PROVIDERS: PCP Internal Medicine; Visit Provider Radiology Diagnostic Radiology | DX: T18.9XXA Foreign body of alimentary tract, part unspecified, initial encounter (principal) | CPT/HCPCS: 74018 ==

== ENCOUNTER 2024-09-26 13:43 | Outpatient (AMB) | payer MEDICARE, SELFPAY ==
--- NOTE | 2024-09-26 14:23 | A.OFFPC_ITS ---
Vital Signs 09/26/24 14:24 Height 5 ft 2 in Weight 132 lb BMI 24.1 BP 130/72 Blood Pressure Location Lt brachial Position Sitting Pulse 65 Pulse Source Pulse Oximeter Pulse Oximetry (%) 96 Oxygen Delivery Method Room Air Intake Visit Reasons: TCM [facility] 09/18 GI Bleed Warp Bleaching Vat Tender Required: No Accompanied by: Self / Same As Patient Allergies Sulfa (Sulfonamide Antibiotics) Allergy (Intermediate, Verified 09/26/24 14:24) Swollen red eyes cefuroxime Adverse Reaction (Intermediate, Uncoded 09/26/24 14:24) Stomach Upset Tobacco use date assessed: 09/26/24 Fall risk assessment: No Falls in past year Last assessed Fall Risk: 09/26/24 Dental Screening Dental Screen Date: 09/26/24 Did you have a dental visit in the last 12 months?: Yes Did you have a dental problem in the last 6 months where you did not have access to dental care?: No Was dental information given to patient?: Patient has dentist HPI HPI Comments History of Present Illness Details 73 y/o female patient who presents to [facility] for TCM. Pmhx significant for history of paroxysmal atrial fibrillation anticoagulated with Eliquis on Multaq, sick sinus syndrome s/p pacemaker, GERD, hyperlipidemia presented to the ED on 09/16/24 for evaluation of black stool. She was seen by Gastroenterology while in the ED who recommended IV PPI, clear liquids, transfusions and plan for EGD. S/p 2u RBC 09/16; s/p kcentra. Upper Endoscopy 09/17, no source of bleeding found; did show paraesophageal hernia, recommended outpatient surgical evaluation for consideration of surgical repair. Colonoscopy done 09/18 -showed severe diverticulosis with internal hemorrhoids, but no active bleeding. [facility] Medical History Cardiac pacemaker in situ Visit for wound check Dizziness GERD (gastroesophageal reflux disease) Sick sinus syndrome Atrial fibrillation with rapid ventricular response Atrial fibrillation History of transesophageal echocardiography (ELIGIO) Left atrial dilatation Orthostatic lightheadedness Pain and swelling of left lower leg Exertional dyspnea Swelling of joint of left hand Pain in joint of left hand Overweight (BMI 25.0-29.9) Allergic rhinitis Pure hypercholesterolemia Osteoarthritis Dyslipidemia Vitamin D deficiency Age related osteoporosis Surgical History History of permanent cardiac pacemaker placement (~09/01/23) Status post cardiac catheterization History of cardiac cath Hx of cataract removal with insertion of prosthetic lens (~12/2014) Hx of section Family History Mother Prediabetes Hyperlipidemia Hypertension Father No problems noted. Social History Household Members: Spouse Housing: House Do you presently have visiting nurse or other home services: No Alcohol intake: former Patient Tobacco Use Status: Never used Tobacco e-Cigarette/Vaping Use: Never Used Second Hand Smoke Exposure: No service: No Current occupational status: retired Cognitive needs: No Hearing needs: Yes Vision needs: No Questionnaire PHQ-9 Over the last 2 weeks, how often have you been bothered by any of the following problems? 1. Little interest or pleasure in doing things: not at all 2. Feeling down, depressed, or hopeless: not at all 3. Trouble falling or staying asleep, or sleeping too much: not at all 4. Feeling tired or having little energy: not at all 5. Poor appetite or overeating: not at all 6. Feeling bad about yourself - or that you are a failure or have let yourself or your family down: not at all 7. Trouble concentrating on things, such as reading the newspaper or watching television: not at all 8. Moving or speaking so slowly that other people could have noticed. Or the opposite - being so fidgety or restless that you have been moving around a lot more than usual: not at all 9. Thoughts that you would be better off or of hurting yourself in some way: not at all Total score: 0 Depression Screening Interpretation: Negative Depression Screening Done: Yes Source: Developed by Drs. Al Amato, Nathaly Allison, Yvan Wu and colleagues, with an educational mindy from [employer]. Thrive Questionnaire Date Thrive assessed: 09/26/24 I am a: Patient What is your living situation today?: I have a steady place to live Within the past 12 months, did the food you bought not last and you didn't have the money to get more?: Never true Within the past 12 months, did you worry whether your food would run out before you got money to buy more?: Never true Do you have trouble paying for medicines?: No Do you have trouble getting transportation to medical appointments?: No Do you have trouble paying your heating and electricity bill?: No Do you have trouble taking care of your child, family member or friend?: No Do you have trouble with day-to-day activities such as bathing, preparing meals, shopping, managing finances, etc.?: No Are you currently unemployed and looking for a job?: No Are you interested in more education?: No Please select the resources that you would like help with: None Currently or been in a relationship where the following occur: No concerns reported THRIVE Score: 0 AUDIT C Alcohol Use Questionnaire (AUDIT-C) 1. How often do you have a drink containing alcohol?: Never 3. How often do you have six or more drinks on one occasion?: Never Total Score: 0 KEYON-7 AMB Questionnaire KEYON-7 Date KEYON - 7 assessed: 09/26/24 Feeling nervous, anxious, or on edge: 0 = Not at all Not being able to stop or control worryin = Not at all Worrying too much about different things: 0 = Not at all Trouble relaxin = Not at all Being so restless that it is hard to sit still: 0 = Not at all Becoming easily annoyed or irritable: 0 = Not at all Feeling afraid as if something awful might happen: 0 = Not at all Total KEYON-7 score (0-4 normal; 5-9 mild; 10-14 moderate; 15-21 severe): 0 Source: Developed by Drs. Al Amato, Nathaly Allison, Yvan Wu and colleagues, with an educational mindy from [employer]. Review of Systems Const All systems reviewed & are unremarkable except as noted in HPI and below Physical exam (Primary Care) Vital Signs: Last Vital Signs Pulse 65 09/26/24 14:24 BP 130/72 09/26/24 14:24 Pulse Ox 96 09/26/24 14:24 Oxygen Delivery Method Room Air 09/26/24 14:24 BMI result Body Mass Index 24.1 Tobacco/Smoking Status: Tobacco use Status Tobacco use date assessed 09/26/24 09/26/24 14:31 Patient Tobacco Use Status Never used Tobacco 09/26/24 14:31 e-Cigarette/Vaping Use Never Used 09/26/24 14:31 PHQ-9: PHQ-9 Score PHQ-9: Total score 0 09/26/24 14:48 Depression Screening Interpretation: Negative Thrive Assessment: Date of Thrive Assessment Date Thrive assessed 09/26/24 09/26/24 14:31 Currently or been in a relationship where the following occur: No concerns reported Const General: no acute distress Nutritional Appearance: obese Orientation/consciousness: patient oriented x3 Resp Effort & Inspection: normal respiratory effort and able to speak in complete sentences Cardio Rhythm: regular rhythm Heart sounds: S1 normal heart sound present and S2 normal heart sound present Neuro General: patient oriented x3, gait normal and moves all extremities Coding Level of Care Code TCM Mod MDM <= 14 Days Diagnoses Acute GI bleeding K92.2 Hiatal hernia K44.9 Time Spent (min) 20 Assessment & Plan Assessment & Plan (1) Acute GI bleeding: Code(s): K92.2 - Gastrointestinal hemorrhage, unspecified Category: Medical Plan: Managed by GI. She is waiting for Capsule swallow procedure. (2) Hiatal hernia: Code(s): K44.9 - Diaphragmatic hernia without obstruction or gangrene Category: Medical Plan: Managed by GI.
[2024-09-26 14:24] VITALS: BP 130/72; PULSE 65; O2SAT 96; BMI 24.1
== END 2024-09-26 15:08 | disposition home or self-care (01) ==
LOC: HO.HMCH 13:43
PROVIDERS: PCP Internal Medicine; Visit Provider Nurse Practitioner Family
DX: K92.2 Gastrointestinal hemorrhage, unspecified (principal); K44.9 Diaphragmatic hernia without obstruction or gangrene

== ENCOUNTER → 2024-09-26 13:43 | Outpatient (BNVA) | payer MEDICARE, SELFPAY | PROVIDERS: PCP Internal Medicine; Visit Provider Nurse Practitioner Family | DX: I48.0 Paroxysmal atrial fibrillation (principal); E78.5 Hyperlipidemia, unspecified; K21.9 Gastro-esophageal reflux disease without esophagitis; K92.2 Gastrointestinal hemorrhage, unspecified; K44.9 Diaphragmatic hernia without obstruction or gangrene; Z79.01 Long term (current) use of anticoagulants; Z95.0 Presence of cardiac pacemaker | CPT/HCPCS: 99495 ==

== ENCOUNTER 2024-10-01 08:31 | Outpatient (AMB) | payer MEDICARE, SELFPAY ==
--- NOTE | 2024-10-01 08:43 | MHC.OFFVISWM ---
VS Expanded 10/01/24 08:44 BP 137/64 Blood Pressure Location Rt brachial Blood Pressure Position Sitting Pulse 77 Pulse Source Pulse Oximeter Temp 97.9 F Temperature Source Temporal Artery Scan Pulse Oximetry 98 Oxygen Delivery Method Room Air Height 5 ft 2 in Weight 127 lb 8 oz BMI 23.3 Intake Visit Reasons: OV Hiatal Hernia - DR. Gutierrez Ref. Allergies Sulfa (Sulfonamide Antibiotics) Allergy (Intermediate, Verified 10/01/24 09:22) Swollen red eyes cefuroxime Adverse Reaction (Intermediate, Uncoded 10/01/24 09:22) Stomach Upset Medication List - Last Reconciled 10/01/24 by Jordan Bajwa MD apixaban (Eliquis) 5 mg PO BID cholecalciferol (vitamin D3) 50 mcg PO DAILY@1900 fluticasone propionate 50 mcg/actuation 1 spray intranasal DAILY PRN Multaq (dronedarone) 400 mg PO BID NS rosuvastatin (Crestor) 40 mg PO DAILY HPI Comments Details: The patient was referred to me by Dr. Gutierrez for a large paraesophageal hernia. The patient was recently in the hospital for acute GI bleeding and melena and was admitted with a hemoglobin of 6.6. She required blood transfusion. The patient has been on Eliquis for history of Afib but does have a pacemaker. Also reports SOB and food sticking Tests reviewed: UGI 2020: large paraesophageal hernia with GERD CT abd/pelvis 2022: large diaphragmatic hernia CTA 12/2023: severe stenosis at LAD and left obtuse marginal artery Nuclear stress test 12/23: ischemia at the region of LAD Echo 2021: EF: 60% PFTs: mild obstruction PFSH Medical History HTN (hypertension) Cardiomegaly Chronic interstitial lung disease Paroxysmal atrial fibrillation Cardiac pacemaker in situ Visit for wound check Dizziness GERD (gastroesophageal reflux disease) Sick sinus syndrome Atrial fibrillation with rapid ventricular response Atrial fibrillation History of transesophageal echocardiography (ELIGIO) Left atrial dilatation Orthostatic lightheadedness Pain and swelling of left lower leg Exertional dyspnea Swelling of joint of left hand Pain in joint of left hand Overweight (BMI 25.0-29.9) Allergic rhinitis Pure hypercholesterolemia Osteoarthritis Dyslipidemia Vitamin D deficiency Age related osteoporosis Surgical History History of permanent cardiac pacemaker placement (~09/01/23) Status post cardiac catheterization History of cardiac cath Hx of cataract removal with insertion of prosthetic lens (~12/2014) Hx of section Family History Mother Prediabetes Hyperlipidemia Hypertension Father No problems noted. Social History Household Members: Spouse Housing: House Do you presently have visiting nurse or other home services: No Alcohol intake: former Patient Tobacco Use Status: Never used Tobacco e-Cigarette/Vaping Use: Never Used Second Hand Smoke Exposure: No service: No Current occupational status: retired Cognitive needs: No Hearing needs: Yes Vision needs: No Physical Exam Vital Signs: Last Vital Signs Temp 97.9 F 10/01/24 08:44 Pulse 77 10/01/24 08:44 BP 137/64 10/01/24 08:44 Pulse Ox 98 10/01/24 08:44 Oxygen Delivery Method Room Air 10/01/24 08:44 BMI result Body Mass Index 23.3 GI Inspection: Yes normal to inspection (Gynecoid body habitus) and Yes incision (well healed) Palpation (GI): Soft to palpation Assessment & Plan Assessment & Plan (1) Strangulated paraesophageal hernia: Code(s): K44.0 - Diaphragmatic hernia with obstruction, without gangrene Category: Medical Plan: 1. We discussed the potential etiology of the hernia as well as for the melena. 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 This in coordination with the initiation of Eliquis treatment in the summer has led most likely to acute GI bleeding. We discussed the details of the diaphragmatic hernia repair and the potential technical challenges such as being able to achieve enough mobilization of the esophagus back in the abdomen and being able to close the diaphragmatic muscle (crura) primarily with sutures. We also discussed the possibility of using a biologic mesh to close the hernia defect if the crura cannot be adequately re-approximated primarily with sutures. We also discussed the option of doing a gastropexy or a fundoplication to prevent postoperative reflux and prevent hernia recurrence. As we discussed, I favor the gastropexy as the fundoplication can cause several distrurbing symptoms such as gas-bloating, flatulence, inability to burp which can be bothersome to patients. Also we discussed the complexity of a potential hernia recurrence in association with a hernia recurrence. She was in agreement not to have a fundoplication. We also discussed that after surgery, she will need to be on a liquid diet with protein shakes the first week. The second week will add protein bars and soft foods and after the third week we will introduce small amounts of regular food. The transition to normal eating habits will take about 6 weeks which is the time required for the repair to heal completely. 2. Prior to surgery, the patient is scheduled for a capsule endoscopy this coming Sunday 3. I will reach out to Dr. Morales and Dr. England to obtain clearances so we can proceed with the surgery taiwo given the high risk of recurrent GI bleeding
[2024-10-01 08:44] VITALS: BP 137/64; PULSE 77; TEMP 36.6; O2SAT 98; BMI 23.3
--- OUTSIDE RECORDS SUMMARY | 2024-10-01 08:53 | XMS_ITS | Encounter Summary ---
Author Organization [facility] Address [address] [place] [address] Care Team Providers Care Security Tech Name Role Phone Unknown Primary Care Provider [phone] Encounter Details Date Type Department Care Team (Late st Contact Info) Description 12/31/2023 Scanned Document [address] [place] [phone] Radiology, Scan Social History Tobacco Use [...] on filedocumented in this encounter Care Teams Security Tech Relationship Specialty Start Date End Date Unknown Unknow Provider Address PCP - General 12/17/23 documented as of this encounter
--- OUTSIDE RECORDS SUMMARY | 2024-10-01 08:53 | XMS_ITS | Clinical Summary ---
Author Organization [facility] Address [address] [place] [address] Care Team Providers Care Residential Real Estate Sales Manager Name Role Phone Unknown Primary Care Provider [phone] Allergies No known active allergies Social History [...] age to complete this topic Care Teams Residential Real Estate Sales Manager Relationship Specialty Start Date End Date Unknown Unknow Provider Address PCP - General 12/17/23
== END 2024-10-01 10:08 | disposition home or self-care (01) ==
LOC: HO.HBS 08:32
PROVIDERS: PCP Internal Medicine; Visit Provider Surgery
DX: K44.0 Diaphragmatic hernia with obstruction, without gangrene (principal)
CPT/HCPCS: 99204

== ENCOUNTER → 2024-10-01 08:31 | Outpatient (BNVA) | payer MEDICARE, SELFPAY | PROVIDERS: PCP Internal Medicine; Visit Provider Surgery | DX: K44.0 Diaphragmatic hernia with obstruction, without gangrene (principal) | CPT/HCPCS: 99202 ==

== ENCOUNTER 2024-10-06 07:36 | Outpatient (AMB) | payer MEDICARE, SELFPAY ==
--- OUTSIDE RECORDS SUMMARY | 2024-10-06 07:38 | XMS_ITS | Clinical Summary ---
Author Organization [facility] Address [address] [place] [address] Care Team Providers Care Cook Morning Name Role Phone Unknown Primary Care Provider [phone] Allergies No known active allergies Social History [...] age to complete this topic Care Teams Cook Morning Relationship Specialty Start Date End Date Unknown Unknow Provider Address PCP - General 12/17/23
--- OUTSIDE RECORDS SUMMARY | 2024-10-06 07:38 | XMS_ITS | Encounter Summary ---
Author Organization [facility] Address [address] [place] [address] Care Team Providers Care Dairy Equipment Mechanic Name Role Phone Unknown Primary Care Provider [phone] Encounter Details Date Type Department Care Team (Late st Contact Info) Description 12/31/2023 Scanned Document [address] [place] [phone] Radiology, Scan Social History Tobacco Use [...] on filedocumented in this encounter Care Teams Dairy Equipment Mechanic Relationship Specialty Start Date End Date Unknown Unknow Provider Address PCP - General 12/17/23 documented as of this encounter
--- OUTSIDE RECORDS SUMMARY | 2024-10-06 07:38 | XMS_ITS | Data Portability ---
Author Organization [place] [facility], [facility] Address [address] [place] [phone] Care Team Providers Care Ballast Cleaning Machine Operator Name Role Phone IRMA INTERIANO Primary Care Provider [phone] Assessment No assessment recorded. Plan of Treatment [...] Address Organization Details Recorded Time Acute sialoadenitis 801080310 Active 2023 KIESHA SAXENA MD [address] [place] [address], [phone], [facility] 06:57:32 Problem Notes None recorded. Procedures Surgical History Date Name Laterality Status Provider Name and Address Organization Details Recorded Time cardiac pacemaker procedure completed KIESHA SAXENA MD [address] [place] [address], [phone], [facility] 06/15/2024 06:55:47 Imaging Results None recorded. Procedure [...] Updated DateTime 06/13/2024 157.48 cm 24.8 kg/m2 71923.77 g Veronica Pate [place] - [facility] 06/13/2024 09:38:09 Social History None recorded. Functional Status None recorded. Mental Status None recorded. Family History Nothing Reported. Medical History Condition Response Heart Problems Y Hyperlipidemia Y Gynecological HistoryNo gynecological history recorded. Obstetrics History GPAL:G 0 P 0 0 0 0 Past Encounters Encounter ID Performer Location Encounter Start Date Encounter Closed Date Diagnosis/Indication Diagnosis SNOMED-CT Code Diagnosis ICD10 Code Diagnosis Note [id number] KIESHA SAXENA MD [facility] [address] [phone] 06/13/2024 09:18:56 06/13/2024 15:51:27 Acute sialoadenitis 858445639 K11.21 73-year-ol d female presents today for assessment after being seen in the [place] emergency department for acute left-sided facial swelling. This seemed to be preceded by allergy symptoms. She has been on antibiotic s and feels much improved. She had a CT scan at [facility] showing a 2 cm phlegmon versus abscess in the inferior deep left parotid gland, prominent lingual tonsils. On exam today, I see clear saliva from both Stensen's and [place]'s ducts. There is very minimal fullness in [...] Conti Member ID Guarantor Name 06/13/2024 1 [facility] (MEDICARE REPLACEMENT/ ADVANTAGE - PPO) [id number] 1 Yaritza Reich [id number] Yaritza Reich Notes Date Note Type Note Provider Name and Address Organization Details Recorded Time 06/13/2024 text/html 73 yo F with sialoadenitis. Finishing abx in 3 days, feels much better Initial symptoms included stuffy nose, watery eyes, felt a little tender, went to [facility] walk in, thought allergy related, next morning, then went to ER Has been on flonase for allergies, previously on allergy shots, going to set up repeat testing No trouble swallowing or sore throatNo ear pain once 4 years ago had some swelling on the right, felt like a blockage then went away She had a CT scan at [facility] showing a 2 cm phlegmon versus abscess in the inferior deep left parotid gland, prominent lingual tonsils. KIESHA SAXENA MD [address] [place] [address], [place], [phone], [facility] - [facility] 06/15/2024 07:00:44 OBGyn Episode No OBEpisode recorded.
--- NOTE | 2024-10-10 12:52 | MHC.OFFVIS ---
Intake Visit Reasons: Capsule Endoscopy - [facility] Allergies Sulfa (Sulfonamide Antibiotics) Allergy (Intermediate, Verified 10/10/24 10:43) Swollen red eyes cefuroxime Adverse Reaction (Intermediate, Uncoded 10/10/24 10:43) Stomach Upset [facility] Medical History (Updated 10/08/24 @ 19:23 by Jordan Bajwa MD) Paroxysmal atrial fibrillation HTN (hypertension) Cardiomegaly Chronic interstitial lung disease Cardiac pacemaker in situ Visit for wound check Dizziness GERD (gastroesophageal reflux disease) Sick sinus syndrome Atrial fibrillation with rapid ventricular response Atrial fibrillation History of transesophageal echocardiography (ELIGIO) Left atrial dilatation Orthostatic lightheadedness Pain and swelling of left lower leg Exertional dyspnea Swelling of joint of left hand Pain in joint of left hand Overweight (BMI 25.0-29.9) Allergic rhinitis Pure hypercholesterolemia Osteoarthritis Dyslipidemia Vitamin D deficiency Age related osteoporosis Surgical History History of permanent cardiac pacemaker placement (~09/01/23) Status post cardiac catheterization History of cardiac cath Hx of cataract removal with insertion of prosthetic lens (~12/2014) Hx of section Family History Mother Prediabetes Hyperlipidemia Hypertension Father No problems noted. Social History Household Members: Spouse Housing: House Do you presently have visiting nurse or other home services: No Alcohol intake: former Patient Tobacco Use Status: Never used Tobacco e-Cigarette/Vaping Use: Never Used Second Hand Smoke Exposure: No service: No Current occupational status: retired Cognitive needs: No Hearing needs: Yes Vision needs: No Office Procedures AMB Capsule Endoscopy Procedure Notes: Capsule Endoscopy: Date of Service: 10/06/24 Indication: GI bleed Findings: esophagus appeared normal stomach with mild gastritis and few spots of dried blood.No active bleeding points seen. Duodenum reached at 3 mins. Mild bulbar duodenitis noted. Rest of small bowel normal. Cecum reached at 4 hr 4 min and visualized portions of colon were normal. Conclusion: mild gastritis and duodenitis no active bleeding, masses or ulcers seen Capsule Endoscopy CPT Code: 44713 - Capsule Endoscopy Assessment & Plan Assessment & Plan (1) Acute GI bleeding: Code(s): K92.2 - Gastrointestinal hemorrhage, unspecified Category: Medical Plan see above Coding Level of Care Code Procedure Only Diagnoses Acute GI bleeding K92.2 CPT Codes AMB Capsule Endoscopy - Capsule Endoscopy CPT Code: 00817 - Capsule Endoscopy ([id number])
== END 2024-10-06 07:49 | disposition home or self-care (01) ==
LOC: HO.HGI 07:36
PROVIDERS: PCP Internal Medicine; Visit Provider Internal Medicine Gastroenterology
DX: K29.70 Gastritis, unspecified, without bleeding (principal); K29.80 Duodenitis without bleeding
CPT/HCPCS: 91110

== ENCOUNTER → 2024-10-06 07:36 | Outpatient (BNVA) | payer MEDICARE, SELFPAY | PROVIDERS: PCP Internal Medicine; Visit Provider Internal Medicine Gastroenterology | DX: K92.2 Gastrointestinal hemorrhage, unspecified (principal) | CPT/HCPCS: 91110 ==

== ENCOUNTER → 2024-10-07 23:59 | Outpatient (BNV) | payer MEDICARE, SELFPAY ==
--- NOTE | 2024-10-10 13:33 | MHC.OFFVIS ---
Intake Visit Reasons: remote device check- [facility] Allergies Sulfa (Sulfonamide Antibiotics) Allergy (Intermediate, Verified 10/10/24 10:43) Swollen red eyes cefuroxime Adverse Reaction (Intermediate, Uncoded 10/10/24 10:43) Stomach Upset PFSH Medical History (Updated 10/10/24 @ 13:34 by Tomer Morales MD) Cardiac pacemaker in situ Paroxysmal atrial fibrillation HTN (hypertension) Cardiomegaly Chronic interstitial lung disease Visit for wound check Dizziness GERD (gastroesophageal reflux disease) Sick sinus syndrome Atrial fibrillation with rapid ventricular response Atrial fibrillation History of transesophageal echocardiography (ELIGIO) Left atrial dilatation Orthostatic lightheadedness Pain and swelling of left lower leg Exertional dyspnea Swelling of joint of left hand Pain in joint of left hand Overweight (BMI 25.0-29.9) Allergic rhinitis Pure hypercholesterolemia Osteoarthritis Dyslipidemia Vitamin D deficiency Age related osteoporosis Surgical History History of permanent cardiac pacemaker placement (~09/01/23) Status post cardiac catheterization History of cardiac cath Hx of cataract removal with insertion of prosthetic lens (~12/2014) Hx of section Family History Mother Prediabetes Hyperlipidemia Hypertension Father No problems noted. Social History Household Members: Spouse Housing: House Do you presently have visiting nurse or other home services: No Alcohol intake: former Patient Tobacco Use Status: Never used Tobacco e-Cigarette/Vaping Use: Never Used Second Hand Smoke Exposure: No service: No Current occupational status: retired Cognitive needs: No Hearing needs: Yes Vision needs: No Office Procedures Cardiac Device Check Cardiac Device Check Details: Remote pacemaker report generated 10/07/2024. Pacemaker function is adequate. No episodes of atrial fibrillation noted [id number] Cardiac Device Interrogation, pacemaker Procedure code (CPT) selection complete Assessment & Plan Assessment & Plan (1) Cardiac pacemaker in situ: Code(s): Z95.0 - Presence of cardiac pacemaker Category: Medical Plan: See above Coding Level of Care Code Procedure Only Diagnoses Cardiac pacemaker in situ Z95.0 CPT Codes Cardiac Device Check - Cardiac Device 12: [id number] Cardiac Device Interrogation, pacemaker ([id number])
== END ==
PROVIDERS: PCP Internal Medicine; Visit Provider Internal Medicine Cardiovascular Disease
DX: Z45.018 Encounter for adjustment and management of other part of cardiac pacemaker (principal)
CPT/HCPCS: 93294

== ENCOUNTER 2024-10-09 07:46 | Outpatient (REF) | payer MEDICARE, SELFPAY ==
--- OUTSIDE RECORDS SUMMARY | 2024-10-09 07:50 | XMS_ITS | Encounter Summary ---
Author Organization [facility] Address [address] [place] [address] Care Team Providers Care Biology Intern Name Role Phone Unknown Primary Care Provider [phone] Encounter Details Date Type Department Care Team (Late st Contact Info) Description 12/31/2023 Scanned Document [address] [place] [phone] Radiology, Scan Social History Tobacco Use [...] on filedocumented in this encounter Care Teams Biology Intern Relationship Specialty Start Date End Date Unknown Unknow Provider Address PCP - General 12/17/23 documented as of this encounter
--- OUTSIDE RECORDS SUMMARY | 2024-10-09 07:50 | XMS_ITS | Clinical Summary ---
Author Organization [facility] Address [address] [place] [address] Care Team Providers Care Production Artist Name Role Phone Unknown Primary Care Provider [phone] Allergies No known active allergies Social History [...] age to complete this topic Care Teams Production Artist Relationship Specialty Start Date End Date Unknown Unknow Provider Address PCP - General 12/17/23
[2024-10-09 08:13] LABS: MANUAL DIFF FLAG NO
[2024-10-09 08:38] LABS: Basophils Absolute Auto 0.1 X10*3/uL (0.0-0.2); Eosinophils Absolute Auto 0.2 X10*3/uL (0.0-0.4); Eosinophils Percent Auto 4.8 % (0-4); Hematocrit 30.9 % (37.0-47.0); Hemoglobin 10.1 g/dl (12.0-16.0); Imm Gran Abs Auto 0.01 X10*3/uL (0.00-0.03); Imm Gran Pct Auto 0.2 % (0.0-0.4); Lymphocytes Absolute Auto 1.5 X10*3/uL (1.2-4.9); Lymphocytes Percent Auto 30.9 % (20-40); Mean Corpuscular HGB Conc 32.7 g/dl (31.0-35.0); Mean Corpuscular Hemoglobin 25.6 pg (27.0-33.0); Mean Corpuscular Volume 78.4 fL (80.0-98.0); Mean Platelet Volume 10.8 fL (9.4-12.3); Monocytes Absolute Auto 0.5 X10*3/uL (0.1-1.2); Monocytes Percent Auto 9.4 % (2-11); Neutrophils Absolute Auto 2.7 x10*3/uL (2.0-8.3); Neutrophils Percent Auto 53.7 % (45-73); Platelet Count 321 X10*3/uL (160-400); Red Blood Count 3.94 X10*6/uL (4.20-5.50); Red Cell Distribution Width 16.3 % (11.0-16.0)
[2024-10-09 08:44] LABS: INTERNATIONAL NORM RATIO 1.4 (0.9-1.1); Prothrombin Time 15.8 SEC (10.9-12.4)
[2024-10-09 08:50] LABS: Estimated Average Glucose 114 mg/dL; Hemoglobin A1C 104.6683 umol/L; Hemoglobin A1c % 5.6 % (<6.0)
[2024-10-09 09:12] LABS: Alanine Aminotransferase 15 U/L (0-31); Albumin Level 4.2 g/dL (3.5-5.0); Alkaline Phosphatase 65 U/L (39-117); Anion Gap 12 (12-20); Aspartate Amino Transferase 31 U/L (5-31); Bilirubin Total 0.3 mg/dL (0.0-1.0); Blood Urea Nitrogen 11 mg/dL (9-16); C Reactive Protein < 0.10 mg/dL (< or = 0.50); Calcium 9.3 mg/dL (8.4-10.2); Carbon Dioxide 23 mmol/L (22-29); Chloride 109 mmol/L (96-108); Cholesterol 162 mg/dL (<200); Estimated Glomerular Filt Rate > 60; Glucose Random 98 mg/dL (60-115); HDL Cholesterol 85 mg/dL (>40); Iron 33 mcg/dL (30-160); LDL Cholesterol Calculated 66 mg/dL (<100); Percent Iron Saturation 8 % (15-50); Potassium 4.1 mmol/L (3.3-5.1); Sodium 140 mmol/L (135-145); Total Iron Binding Capacity 407 mcg/dL (228-428); Total Protein 7.2 g/dL (6.5-8.0); Triglycerides 58 mg/dL (<150); Unsaturated Iron Binding 374 ug/dL
[2024-10-09 09:32] LABS: Vitamin B12 458 pg/mL (200-900)
[2024-10-09 09:34] LABS: Ferritin 14 ng/mL (10-250); Vitamin D 25-OH Total 50.6 ng/mL (>30)
[2024-10-09 09:55] LABS: Insulin 8 uU/mL (2-29)
[2024-10-12 17:12] LABS: Zinc 54 mcg/dL (60-130)
[2024-10-13 22:13] LABS: Vitamin A 60 mcg/dL (38-98)
[2024-10-20 01:29] LABS: Vitamin B1 8 nmol/L (8-30)
== END 2024-10-09 07:47 | disposition home or self-care (01) ==
LOC: HO.LAB 07:46
PROVIDERS: PCP Internal Medicine; Visit Provider Surgery
DX: E78.5 Hyperlipidemia, unspecified (principal); I25.10 Atherosclerotic heart disease of native coronary artery without angina pectoris; Z79.01 Long term (current) use of anticoagulants; Z13.1 Encounter for screening for diabetes mellitus
CPT/HCPCS: 36415; 80053; 80061; 82306; 82607; 82728; 83036; 83525; 83540; 84425; 84443; 84590; 84630; 85025; 85610; 85730; 86140; 86850; 86900; 86901

== ENCOUNTER 2024-10-10 08:37 | Outpatient (AMB) | payer MEDICARE, SELFPAY ==
--- OUTSIDE RECORDS SUMMARY | 2024-10-10 08:42 | XMS_ITS | Data Portability ---
Author Organization [place] [facility], [facility] Address [address] [place] [phone] Care Team Providers Care Art Teacher Name Role Phone IRMA INTERIANO Primary Care [...] Address Organization Details Recorded Time Acute sialoadenitis 805619286 Active 2023 KIESHA SAXENA MD [address] [place] [address], [phone], [facility] 06:57:32 Problem Notes None recorded. Procedures Surgical History Date Name Laterality Status Provider Name and Address Organization Details Recorded Time cardiac pacemaker procedure completed KIESHA SAXENA MD [address] [place] [address], [phone], [facility] 06/15/2024 06:55:47 Imaging Results None recorded. [...] Updated DateTime 06/13/2024 157.48 cm 24.8 kg/m2 98065.77 g Veronica Pate [place] - [facility] 06/13/2024 09:38:09 Social History None recorded. Functional Status None recorded. Mental Status None recorded. Family History Nothing Reported. Medical History Condition Response Heart Problems Y Hyperlipidemia Y Gynecological HistoryNo gynecological history recorded. Obstetrics History GPAL:G 0 P 0 0 0 0 Past Encounters Encounter ID Performer Location Encounter Start Date Encounter Closed Date Diagnosis/Indication Diagnosis SNOMED-CT Code Diagnosis ICD10 Code Diagnosis Note [id number] KIESHA SAXENA MD [facility] [address] [address] 06/13/2024 09:18:56 06/13/2024 15:51:27 Acute sialoadenitis [id number] K11.21 73-year-ol d female presents today for assessment after being seen in the [place] emergency department for acute left-sided facial swelling. This seemed to be preceded by allergy symptoms. She has been on antibiotic s and feels much improved. She had a CT scan at [facility] showing a 2 cm phlegmon versus abscess in the inferior deep left parotid gland, prominent lingual tonsils. On exam today, I see clear saliva from both Stensen's and [place]'s ducts. There is very minimal fullness in [...] ID Guarantor Name 06/13/2024 1 [facility] (MEDICARE REPLACEMENT/ ADVANTAGE - PPO) [id number] 1 Yaritza Reich [id number] Yaritza Reich Notes Date Note Type Note Provider Name and Address Organization Details Recorded Time 06/13/2024 text/html 73 yo F with sialoadenitis. Finishing abx in 3 days, feels much better Initial symptoms included stuffy nose, watery eyes, felt a little tender, went to [facility] walk in, thought allergy related, next morning, then went to ER Has been on flonase for allergies, previously on allergy shots, going to set up repeat testing No trouble swallowing or sore throatNo ear pain once 4 years ago had some swelling on the right, felt like a blockage then went away She had a CT scan at [facility] showing a 2 cm phlegmon versus abscess in the inferior deep left parotid gland, prominent lingual tonsils. KIESHA SAXENA MD [address] [place] [address], [place], [phone], [facility] - [facility] 06/15/2024 07:00:44 OBGyn Episode No OBEpisode recorded.
--- OUTSIDE RECORDS SUMMARY | 2024-10-10 08:42 | XMS_ITS | Encounter Summary ---
Author Organization [facility] Address [address] [place] [address] Care Team Providers Care Head Bone Grinder Name Role Phone Unknown Primary Care Provider [phone] Encounter Details Date Type Department Care Team (Late st Contact Info) Description 12/31/2023 Scanned Document [address] [place] [phone] Radiology, Scan Social History Tobacco Use [...] on filedocumented in this encounter Care Teams Head Bone Grinder Relationship Specialty Start Date End Date Unknown Unknow Provider Address PCP - General 12/17/23 documented as of this encounter
--- OUTSIDE RECORDS SUMMARY | 2024-10-10 08:42 | XMS_ITS | Clinical Summary ---
Author Organization [facility] Address [address] [place] [address] Care Team Providers Care Child Care Associate Teacher Name Role Phone Unknown Primary Care Provider [phone] Allergies No known active allergies Social History [...] age to complete this topic Care Teams Child Care Associate Teacher Relationship Specialty Start Date End Date Unknown Unknow Provider Address PCP - General 12/17/23
--- NOTE | 2024-10-10 08:46 | A.OFFVIS_ITS ---
VS Expanded 10/10/24 08:47 BP 143/63 H Blood Pressure Location Lt brachial Blood Pressure Position Sitting Pulse 60 Pulse Source Pulse Oximeter Pulse Oximetry 100 Height 5 ft 2 in Weight 127 lb 6.4 oz BMI 23.3 Body Fat % 34.7 Body Fat Mass 4.0 Fat Free Mass 83.2 Visceral Fat Rating 9.0 Body Water % 45.8 Body Water Mass 58.2 Muscle Mass/Score 79.0 Basal Metabolic Rate/Score 1,139 Intake Visit Reasons: OV Pre Op Diaphragmatic Hernia Repair 10/16/24 Allergies Sulfa (Sulfonamide Antibiotics) Allergy (Intermediate, Verified 10/10/24 10:43) Swollen red eyes cefuroxime Adverse Reaction (Intermediate, Uncoded 10/10/24 10:43) Stomach Upset Medication List - Last Reconciled 10/10/24 by Jordan Bajwa MD apixaban (Eliquis) 5 mg PO BID cholecalciferol (vitamin D3) 50 mcg PO DAILY@1900 fluticasone propionate 50 mcg/actuation 1 spray intranasal DAILY PRN fondaparinux 2.5 mg (0.5 mL) subcut Q24H Multaq (dronedarone) 400 mg PO BID NS ondansetron 4 mg PO Q12H pantoprazole 40 mg PO DAILY polyethylene glycol 3350 17 grams PO DAILY rosuvastatin (Crestor) 40 mg PO DAILY sucralfate 10 mL PO BID HPI Comments Details: Here for her preoperative appointment for laparoscopic diaphragmatic hernia repair [facility] Medical History (Updated 10/08/24 @ 19:23 by Jordan Bajwa MD) Paroxysmal atrial fibrillation HTN (hypertension) Cardiomegaly Chronic interstitial lung disease Cardiac pacemaker in situ Visit for wound check Dizziness GERD (gastroesophageal reflux disease) Sick sinus syndrome Atrial fibrillation with rapid ventricular response Atrial fibrillation History of transesophageal echocardiography (ELIGIO) Left atrial dilatation Orthostatic lightheadedness Pain and swelling of left lower leg Exertional dyspnea Swelling of joint of left hand Pain in joint of left hand Overweight (BMI 25.0-29.9) Allergic rhinitis Pure hypercholesterolemia Osteoarthritis Dyslipidemia Vitamin D deficiency Age related osteoporosis Surgical History History of permanent cardiac pacemaker placement (~09/01/23) Status post cardiac catheterization History of cardiac cath Hx of cataract removal with insertion of prosthetic lens (~12/2014) Hx of section Family History Mother Prediabetes Hyperlipidemia Hypertension Father No problems noted. Social History Household Members: Spouse Housing: House Do you presently have visiting nurse or other home services: No Alcohol intake: former Patient Tobacco Use Status: Never used Tobacco e-Cigarette/Vaping Use: Never Used Second Hand Smoke Exposure: No service: No Current occupational status: retired Cognitive needs: No Hearing needs: Yes Vision needs: No Physical Exam Vital Signs: Last Vital Signs Pulse 60 10/10/24 08:47 BP 143/63 H 10/10/24 08:47 Pulse Ox 100 10/10/24 08:47 BMI result Body Mass Index 23.3 GI Inspection: Yes normal to inspection (Gynecoid body habitus) Palpation (GI): Soft to palpation Extrem Right lower extremity: normal to inspection Left lower extremity: normal to inspection Assessment & Plan Assessment & Plan (1) Strangulated paraesophageal hernia: Code(s): K44.0 - Diaphragmatic hernia with obstruction, without gangrene Category: Medical Plan: 1. We discussed the potential etiology of the hernia that could be of traumatic etiology worsened by his weight. We discussed the details of the diaphragmatic hernia repair and the potential technical challenges such as being able to achieve enough mobilization of the esophagus back in the abdomen and being able to close the diaphragmatic muscle (crura) primarily with sutures. We also discussed the possibility of using a biologic mesh to close the hernia defect if the crura cannot be adequately re-approximated primarily with sutures. We also discussed the option of doing a gastropexy or a fundoplication to prevent postoperative reflux and prevent hernia recurrence. As we discussed, I favor the gastropexy as the fundoplication can cause several distrurbing symptoms such as gas-bloating, flatulence, inability to burp which can be bothersome to patients especially for him with a history of IBS. Also we discussed the complexity of a potential hernia recurrence in association with a hernia recurrence. He was in agreement not to have a fundoplication. We also discussed that after surgery, he will need to be on a liquid diet with protein shakes the first week. The second week will add protein bars and soft foods and after the third week we will int roduce small amounts of regular food. The transition to normal eating habits will take about 6 weeks which is the time required for the repair to heal completely. 2. Preop prescriptions were provided and explained the purpose of each one. Need to be purchased preop. Start Pantoprazole now as you get it from the pharmacy, 1 pill per day. Sucralfate and Zofran are for after surgery as needed. 3. Bowel prep: please do 7 packets ?of Miralax mixing each one with a an 8oz glass of water, crystal light, gatorade zero, or propel ?on 10/14/24 and the same amount on 10/15/24. The Miralax you begin with one packet at a time in 8oz water or crystal light, gatorade zero, or propel ?as early in the day as you can and you do them back to back until you finish them. Continue the protein shakes during ?the bowel prep. 4. Needs to purchase 1oz medicine cups . 5. Needs to purchase Children's liquid Tylenol for postop pain control. 6. She needs to stop the Eliquis after tomorrow's morning dose. Tomorrow you will also begin the Fondaparinux injections, as I have showed to you and you will do one per day, daily. The last Fondaparinux on Sunday. You will not take the Fondaparinux on Saturday 10/14 and 10/15/24. Avoid aspirin, motrin, Advil, Aleve, Meloxicam, Excedrin, Ibuprofen, Naproxyn. Tylenol is OK. 7. Importance of adherence to postop folllow-up and recommendations was underscored and she understands that. 8. Stop food and bars as of tomorrow 10/11/24 and continue with 4 Celebrate REBUILD protein shakes (ONE scoop EACH in 8oz almond milk) at 7am-9am, 10am- 12pm, 1pm-3pm, 4pm-6pm and one more Celebrate REBUILD protein shake with TWO scoops in 8oz of almond milk at 7pm-9pm 9. No soups, broths or V8 10. The patient's?medical?history has been reviewed and they are considered low risk for post op DVT and therefore DVT prophylaxis is not considered necessary. Travel after surgery was reviewed. The patient has not disclosed any travel plans during the first 30 days after surgery and they have been advised that within the first 30 days after surgery any bus, plane, train or car travel over 2 hours in duration is contraindicated due to the possibility of developing bloo d clots from immobility. Any travel, needs to include periods of ambulation of 10 minutes in duration every 2 hours.? Patient was instructed to discuss any plans for travel during this period with their bariatric surgeon.? 11. Please take at the day of surgery the following medications: NONE 12. Stop any control pills and don't use them for one month after surgery 13. Absolutely no smoking or vaping, or marijuana until the surgery and for at least the first 4 weeks. Only nicotine patches are allowed. 14. Send me weight measurement on day of surgery before you go to the hospital. 15. Avoid any steroids by mouth for any reason. Let me know if someone prescribes them to you
[2024-10-10 08:47] VITALS: BP 143/63; PULSE 60; O2SAT 100; BMI 23.3
== END 2024-10-10 12:57 | disposition home or self-care (01) ==
LOC: HO.HBS 08:38
PROVIDERS: PCP Internal Medicine; Visit Provider Surgery
DX: K44.0 Diaphragmatic hernia with obstruction, without gangrene (principal)
CPT/HCPCS: 99214

== ENCOUNTER → 2024-10-10 08:37 | Outpatient (BNVA) | payer MEDICARE, SELFPAY | PROVIDERS: PCP Internal Medicine; Visit Provider Surgery | DX: Z01.818 Encounter for other preprocedural examination (principal); K44.0 Diaphragmatic hernia with obstruction, without gangrene | CPT/HCPCS: 99212 ==

== ENCOUNTER 2024-10-16 07:55 | Outpatient (BNV) | payer MEDICARE, SELFPAY | END 2024-10-16 13:12 | PROVIDERS: Admitting Provider Surgery; PCP Internal Medicine; Visit Provider Radiology Diagnostic Radiology | DX: J93.9 Pneumothorax, unspecified (principal); T81.82XA Emphysema (subcutaneous) resulting from a procedure, initial encounter | CPT/HCPCS: 71046 ==

== ENCOUNTER 2024-10-16 07:55 | Inpatient (IN) | payer MEDICARE, SELFPAY ==
--- NOTE | 2024-10-15 09:21 | P.CONAN_ITS ---
Documented by User: Antonina Mckinnon NP 10/15/24 09:38 HPI - Anesthesia Eval Consult details Narrative: 73yo F for Diaphragmatic Hernia Repair Follows [facility] Cardiology. Stable at 05/2024 office visit with 6 month f/u Pacer in situ (SSS) PAF (eliquis, multaq) CAD (moderate, asymptomatic) [facility] admit 08/2024: acute upper GI bleed with acute blood loss anemia s/p 2u rbc 09/16; s/p kcentra. Patient was started on IV PPI. Seen by GI, underwent endoscopy 09/17, no source of bleeding found; did show paraesophageal hernia, recommend outpatient surgical evaluation for consideration of surgical repair. Underwent colonoscopy 09/18 -showing severe diverticulosis with internal hemorrhoids, no active bleeding. Recommend high-fiber diet, avoid straining with stool, continue PPI, can resume Eliquis tomorrow. Recommend outpatient capsule endoscopy. H/H has remained stable since blood transfusion, repeat CBC in one week. PMFSH Active Problems Active Problems: All Active Problems Cardiac pacemaker in situ (Acute) Paroxysmal atrial fibrillation (Acute) Strangulated paraesophageal hernia (Acute) Foreign body alimentary tract (Acute) Hiatal hernia (Chronic) Acute GI bleeding (Acute) Cough (Acute) Pharyngeal abscess (Acute) Food allergy (Acute) Swelling of lymph node (Acute) Osteoarthritis of left knee (Acute) Low back pain (Acute) Left knee pain (Acute) Left hip pain (Acute) Pre-syncope (Acute) Atherosclerotic cardiovascular disease (Acute) GERD (gastroesophageal reflux disease) (Acute) Abnormal pharmacologic myocardial perfusion study (Acute) Lightheadedness (Acute) Sick sinus syndrome (Acute) Sick sinus syndrome (Acute) Neck pain (Acute) Personal history of kidney stones (Acute) Flank pain (Acute) PAC (premature atrial contraction) (Acute) Dysuria (Acute) UTI symptoms (Acute) Palpitations (Acute) Eustachian tube dysfunction (Acute) Postnasal drip (Acute) Right otitis media (Acute) Breast cancer screening (Acute) Sinusitis (Acute) Abdominal pain (Acute) SOB (shortness of breath) on exertion (Acute) History of cardiac cath (Acute) Status post cardiac catheterization (Acute) Left atrial dilatation (Acute) Orthostatic lightheadedness (Acute) Pain and swelling of left lower leg (Acute) Exertional dyspnea (Acute) Swelling of joint of left hand (Acute) Pain in joint of left hand (Acute) Overweight (BMI 25.0-29.9) (Acute) Pure hypercholesterolemia (Acute) Dyslipidemia (Acute) Age related osteoporosis (Acute) Past Medical History Medical History Anemia Cardiac pacemaker in situ Paroxysmal atrial fibrillation HTN (hypertension) Cardiomegaly Chronic interstitial lung disease Visit for wound check Dizziness GERD (gastroesophageal reflux disease) Sick sinus syndrome Atrial fibrillation with rapid ventricular response Atrial fibrillation History of transesophageal echocardiography (ELIGIO) Left atrial dilatation Orthostatic lightheadedness Pain and swelling of left lower leg Exertional dyspnea Swelling of joint of left hand Pain in joint of left hand Overweight (BMI 25.0-29.9) Allergic rhinitis Pure hypercholesterolemia Osteoarthritis Dyslipidemia Vitamin D deficiency Age related osteoporosis Family History Family History Mother Prediabetes Hyperlipidemia Hypertension Father No problems noted. Family history of problems with anesthesia: No Surgical History Surgical History History of permanent cardiac pacemaker placement (~09/01/23) Status post cardiac catheterization History of cardiac cath Hx of cataract removal with insertion of prosthetic lens (~12/2014) Hx of section History of Problems with Anesthesia: No Social History Social History Household Members: Spouse Housing: House Do you presently have visiting nurse or other home services: No Alcohol intake: former Patient Tobacco Use Status: Never used Tobacco e-Cigarette/Vaping Use: Never Used Second Hand Smoke Exposure: No Use of substances other than those prescribed or required for medical reasons: No Are you DNR?: No Advance Directives: No Advance Directives Information Provided: Yes service: No Current occupational status: retired Cognitive needs: No Hearing needs: Yes Vision needs: No Meds Allergies Allergy/AdvReac Type Severity Reaction Status Date / Time Sulfa (Sulfonamide Allergy Intermediate Swollen Verified 10/10/24 10:43 Antibiotics) red eyes cefuroxime AdvReac Intermediate Stomach Uncoded 10/10/24 10:43 Upset Home Medications ?Medication ?Instructions ?Recorded ?Confirmed ?Last Taken ?Type cholecalciferol (vitamin D3) 50 50 mcg PO DAILY@1900 09/16/24 10/16/24 10/15/24 History mcg (2,000 unit) capsule fluticasone propionate 50 1 spray intranasal DAILY PRN 09/16/24 10/16/24 Unknown History mcg/actuation nasal Allergy Symptoms spray,suspension Exam Pertinent Lab Results Pertinent Lab Results: Laboratory Tests 10/09/24 07:58 Blood Type O Positive Antibody Screen NEGATIVE Laboratory Tests 10/09/24 07:58 WBC 5.0 Hgb 10.1 L Hct 30.9 L Plt Count 321 Sodium 140 Potassium 4.1 D Chloride 109 H Carbon Dioxide 23 BUN 11 Creatinine 0.80 Narrative Narrative: EKG 08/2024 Vent. Rate : 60 BPM Atrial Rate : 60 BPM P-R Int : 202 ms QRS Dur : 130 ms QT Int : 456 ms P-R-T Axes : * 38 12 degrees QTcB Int : 456 ms Atrial-paced rhythm Right bundle branch block Abnormal ECG When compared with ECG of 04-Jan-2024 13:59, No significant change was found Cardiac Device Check 05/2024 Details: Dual-chamber [facility] pacemaker in place. Programmed in DDDR at 60 beats per minute. Atrial ventricular sensing is excellent. Atrial ventricular capture thresholds adequate and reprogrammed to provide adequate safety. Pacing lead impedance is stable. Battery life is at about 10 years. No episodes of atrial fibrillation any arrhythmias noted ECHO 2023 Conclusions: - 1. No intracardiac thrombi, masses or vegetations 2. Normal LV ejection fraction of 60-65% 3. No intracardiac shunting 4. Cardiac valvular Dopplers within normal limits 5. Mild atherosclerotic changes noted in the descending and arch of the aorta NM jan perf SPECT rest & str 2023 Impression: 1. Myocardial perfusion imaging study shows equivocal for anterior and mild intensity apical ischemia in LAD territory 2. Gated LVEF is 63% 3. Transient ischemic dilatation present EKG is nondiagnostic for ischemia Coronary CTA 2023 two-vessel disease with moderate to severe plaque stenosis Assessment and Plan Assessment Anesthesia Assessment: Chart Reviewed Final Anesthetic Review Family History of Problems with Anesthesia: No History of Problems with Anesthesia: No Documented by User: Jennifer Chau MD 10/16/24 12:43 [facility] Past Medical History Medical History Anemia Cardiac pacemaker in situ Paroxysmal atrial fibrillation HTN (hypertension) Cardiomegaly Chronic interstitial lung disease Visit for wound check Dizziness GERD (gastroesophageal reflux disease) Sick sinus syndrome Atrial fibrillation with rapid ventricular response Atrial fibrillation History of transesophageal echocardiography (ELIGIO) Left atrial dilatation Orthostatic lightheadedness Pain and swelling of left lower leg Exertional dyspnea Swelling of joint of left hand Pain in joint of left hand Overweight (BMI 25.0-29.9) Allergic rhinitis Pure hypercholesterolemia Osteoarthritis Dyslipidemia Vitamin D deficiency Age related osteoporosis Family History Family History Mother Prediabetes Hyperlipidemia Hypertension Father No problems noted. Family history of problems with anesthesia: No Surgical History Surgical History History of permanent cardiac pacemaker placement (~09/01/23) Status post cardiac catheterization History of cardiac cath Hx of cataract removal with insertion of prosthetic lens (~12/2014) Hx of section History of Problems with Anesthesia: No Social History Social History Household Members: Spouse Housing: House Do you presently have visiting nurse or other home services: No Alcohol intake: former Patient Tobacco Use Status: Never used Tobacco e-Cigarette/Vaping Use: Never Used Second Hand Smoke Exposure: No Use of substances other than those prescribed or required for medical reasons: No Are you DNR?: No Advance Directives: No Advance Directives Information Provided: Yes service: No Current occupational status: retired Cognitive needs: No Hearing needs: Yes Vision needs: No Meds Allergies Allergy/AdvReac Type Severity Reaction Status Date / Time Sulfa (Sulfonamide Allergy Intermediate Swollen Verified 10/10/24 10:43 Antibiotics) red eyes cefuroxime AdvReac Intermediate Stomach Uncoded 10/10/24 10:43 Upset Home Medications ?Medication ?Instructions ?Recorded ?Confirmed ?Last Taken ?Type cholecalciferol (vitamin D3) 50 50 mcg PO DAILY@1900 09/16/24 10/16/24 10/15/24 History mcg (2,000 unit) capsule fluticasone propionate 50 1 spray intranasal DAILY PRN 09/16/24 10/16/24 Unknown History mcg/actuation nasal Allergy Symptoms spray,suspension Exam Height,Weight and Vital Signs: Height 5 ft 2 in Weight 57.7 kg Vital Signs Temp Pulse Resp BP Pulse Ox O2 Del Method 10/16/24 08:10 98.2 F 60 16 142/72 H 97 Room Air Pertinent Lab Results Pertinent Lab Results: Laboratory Tests 10/09/24 07:58 Blood Type O Positive Antibody Screen NEGATIVE Laboratory Tests 10/09/24 07:58 WBC 5.0 Hgb 10.1 L Hct 30.9 L Plt Count 321 Sodium 140 Potassium 4.1 D Chloride 109 H Carbon Dioxide 23 BUN 11 Creatinine 0.80 Laboratory Results - last 24 hr 10/16/24 08:27 Blood Type O Positive Antibody Screen NEGATIVE Airway Mallampati Class: II TM Dist: >3cm Neck ROM: Full Denture: Upper and Lower Loose/Missing/Broken Teeth: Yes (Full dentures) Heart: RRR Lungs: Crackles bilaterally Assessment and Plan Assessment Anesthesia Assessment: Anesthesia Plan Discussed and Chart Reviewed Final Anesthetic Review Family History of Problems with Anesthesia: No History of Problems with Anesthesia: No NPO: Yes ASA Class: III Final Preanesthetic Review: No Changes in Pt Med Stat, Meds/Allgs Chart Reviewed, Consent Obtained/Reviewed and Anes Risks/Benef Reviewed Patient Risk: Intermediate Procedure Risk: Intermediate Assessment/Block/Sedation in SS: Assess/Block/Sedation-SS Anesthetic Plan Anesthetic Plan: GA Disposition: Standard PACU and Inp. Admit - Standard Bed
[2024-10-16] VITALS (21 sets, daily range): BP systolic 128–169; BP diastolic 44–76; PULSE 58–63; RESP 15–21; TEMP 36.1–37.4; O2SAT 92–99; BMI 23.3
--- NOTE | ~2024-10-16 | XR_ITS ---
EXAMINATION: XR CHEST CLINICAL INFORMATION: r/o right ptx COMPARISON: September 16, 2024 TECHNIQUE: 2 views of the chest were obtained. FINDINGS: Small right apical pneumothorax Subcutaneous emphysema both supraclavicular notch and the right lateral chest abdomen wall. Pulmonary reticular pattern. Prominence of the interstitial markings. Cardiomediastinal silhouette size is enlarged. Left-sided pacemaker with 2 intact electrode leads in the right heart chambers. Multilevel thoracic and upper lumbar spondylosis. Osteopenia versus osteoporosis. XR/XR chest 2V IMPRESSION: Right-sided apical pneumothorax, small volume. Subcutaneous emphysema, supraclavicular notch and right lateral chest abdomen wall. Cardiomegaly versus pericardial effusion. Consider chronic interstitial lung disease. Findings communicated via [employer] connect to the requesting physician liaison inspection laboratory assistant. Talib Rider at 3:39 PM on October 16, 2024. Electronically signed by: Albert Quiroz MD 10/16/2024 03:41 PM EDT
--- OUTSIDE RECORDS SUMMARY | 2024-10-16 07:59 | XMS_ITS | Data Portability ---
Author Organization [place] - [facility], Allergy Address [address] [place] [phone] Care Team Providers Care Drying And Winding Supervisor Name Role Phone IRMA INTERIANO Primary Care Provider [phone] Assessment No assessment recorded. Plan of Treatment [...] Address Organization Details Recorded Time Acute sialoadenitis [id number] Active 2023 KIESHA SAXENA MD [address] [place] [address], [phone], [facility] 06:57:32 Problem Notes None recorded. Procedures Surgical History Date Name Laterality Status Provider Name and Address Organization Details Recorded Time cardiac pacemaker procedure completed KIESHA SAXENA MD [address] [place] [address], [phone], [facility] 06/15/2024 06:55:47 Imaging Results None recorded. [...] Updated DateTime 06/13/2024 157.48 cm 24.8 kg/m2 58928.77 g Veronica Pate [place] - [facility] 06/13/2024 09:38:09 Social History None recorded. Functional Status None recorded. Mental Status None recorded. Family History Nothing Reported. Medical History Condition Response Heart Problems Y Hyperlipidemia Y Gynecological HistoryNo gynecological history recorded. Obstetrics History GPAL:G 0 P 0 0 0 0 Past Encounters Encounter ID Performer Location Encounter Start Date Encounter Closed Date Diagnosis/Indication Diagnosis SNOMED-CT Code Diagnosis ICD10 Code Diagnosis Note [id number] KIESHA SAXENA MD [facility] [address] [phone] 06/13/2024 09:18:56 06/13/2024 15:51:27 Acute sialoadenitis 417211631 K11.21 73-year-ol d female presents today for assessment after being seen in the [place] emergency department for acute left-sided facial swelling. This seemed to be preceded by allergy symptoms. She has been on antibiotic s and feels much improved. She had a CT scan at [facility] showing a 2 cm phlegmon versus abscess in the inferior deep left parotid gland, prominent lingual tonsils. On exam today, I see clear saliva from both Stensen's and Murrieta's ducts. There is very minimal fullness in [...] Conti Member ID Guarantor Name 06/13/2024 1 [facility] (MEDICARE REPLACEMENT/ ADVANTAGE - PPO) [id number] 1 Yaritza Reich [id number] Yaritza Reich Notes Date Note Type Note Provider Name and Address Organization Details Recorded Time 06/13/2024 text/html 73 yo F with sialoadenitis. Finishing abx in 3 days, feels much better Initial symptoms included stuffy nose, watery eyes, felt a little tender, went to [facility] walk in, thought allergy related, next morning, then went to ER Has been on flonase for allergies, previously on allergy shots, going to set up repeat testing No trouble swallowing or sore throatNo ear pain once 4 years ago had some swelling on the right, felt like a blockage then went away She had a CT scan at [facility] showing a 2 cm phlegmon versus abscess in the inferior deep left parotid gland, prominent lingual tonsils. KIESHA SAXENA MD [address] [place] [address], [place], [phone], [facility] - [facility] 06/15/2024 07:00:44 OBGyn Episode No OBEpisode recorded.
--- OUTSIDE RECORDS SUMMARY | 2024-10-16 07:59 | XMS_ITS | Encounter Summary ---
Author Organization [facility] Address [address] [place] [address] Care Team Providers Care Slicing Machine Tender Name Role Phone Unknown Primary Care Provider Encounter Details Date Type Department Care Team (Late st Contact Info) Description 12/31/2023 Scanned [address] [place] [phone] Radiology, Scan Social History Tobacco Use Types Packs/Day Years Used Date Smoking Tobacco: Never Assessed Comments Unknown Sex and Gender Information Value Date Recorded Sex Assigned at Female 12/31/2023 8:20 AM EDT Legal Sex Female 2:45 PM EDT Gender Identity Female 12/17/2023 3:08 PM EDT Sexual Orientation Heterosexual (straight) 12/30 8:20 AM EDT documented as of this encounter Plan of Treatment Not on file documented as of this encounter Procedures Procedure Name Priority Date/Time Associated Diagnosis Comments LAB RESULT 12/31/2023 documented in this encounter Results * LAB RESULT (12/31/2023) us Scan Radiology HX AMB PROCEDURES Final Result documented in this encounter Visit Diagnoses Not on filedocumented in this encounter Care Teams Slicing Machine Tender Relationship Specialty Start Date End Date Unknown Unknow Provider Address PCP - General 12/17/23 documented as of this encounter
--- OUTSIDE RECORDS SUMMARY | 2024-10-16 07:59 | XMS_ITS | Clinical Summary ---
Author Organization [facility] Address [address] [place] [address] Care Team Providers Care Document Coordinator Name Role Phone Unknown Primary Care Provider [phone] Allergies No known active allergies Social History [...] on patient's age to complete this topic Insurance [employer] MEDIC[employer] Care Teams Document Coordinator Relationship Specialty Start Date End Date Unknown Unknow Provider Address PCP - General 12/17/23
[2024-10-16] MEDS: Lactated Ringers 1,000 ML 999 ML IV (08:17)
[2024-10-16] MEDS: Aprepitant 32 MG/4.4 ML VIAL IVPUSH (08:24)
--- NOTE | 2024-10-16 08:36 | PHA.MEDREC ---
Pharmacy Consult ? Medication Reconciliation Pharmacy has reviewed the medication reconciliation done by RN.
--- NOTE | 2024-10-16 09:56 | MHC.SHP ---
Pre-Procedural Eval Section A - 24 Hr Update-Section A only Date of Service: 10/16/24 The patient is an INPATIENT: Yes The patient has been examined within 24 hours of the surgical procedure. The History & Physical has been completed within 30 days and I have reviewed it.: Yes Section B - Complete if H&P > 30 days Chief Complaint: Paraesophageal hernia Relevant Family History (Specify if Yes): No Relevant Social History: None Present Medications: None Medical History: No relevant PMH History of Previous Operations: No relevant previous surgery Allergies: Allergies Allergy/AdvReac Type Severity Reaction Status Date / Time Sulfa (Sulfonamide Allergy Intermediate Swollen Verified 10/10/24 10:43 Antibiotics) red eyes cefuroxime AdvReac Intermediate Stomach Uncoded 10/10/24 10:43 Upset Review of Systems Sugical H&P ROS: Negative: Constitution, Cardiovascular, Respiratory, Neurological, Psychiatric, Hem-Onc, Allergic/Immunologic, Gastrointestinal, Genitourinary, Musculoskeletal, Integumentary, Endocrine and Eyes/Ears/Nose/Throat Exam Surgical H&P Exam: Normal: HEENT, Normal: Heart, Normal: Lungs, Normal: Extremities, Normal: Abdomen, Normal: Skin and Normal: Neurological Plan Diagnosis/Plan: Unchanged I have reviewed the history and physical and performed a pertinent physical examination on my patient. No changes have occurred unless specified. Time Spent With Patient Time: Total time managing care of this patient today ____ minutes.
--- NOTE | 2024-10-16 09:57 | P.BOP_ITS ---
Brief Operative Note Date of Service: 10/16/24 Pre-op diagnosis: Diaphragmatic hernia Post-op diagnosis: same Procedure: Date of Service: 10/16/2024 Pre-op diagnosis: Diaphragmatic hernia Post-op diagnosis: same (Giant paraesophageal hernia & abdominal adhesions) Procedure: Procedure: COMORBIDITIES: GERD, diaphragmatic hernia, hyperlipidemia, anxiety, depression, hypertension, knee pain ?INDICATIONS: The patient is a 73 year old female who was referred to me from Dr. Gutierrez for a diaphragmatic hernia and GERD confirmed by EGD, and UGI. The patient is scheduled today for diaphragmatic hernia repair. Risks of recurrent hernia, dysphagia, persistent GERD, VTE, leak, infection and bleeding were discussed with the patient and he is in agreement with the plan. PROCEDURE: Esophago-gastroscopy, laparoscopic lysis of adhesions, laparoscopic repair of incarcerated giant paraesophageal hernia and laparoscopic gastropexy. DESCRIPTION OF PROCEDURE: After informed consent was obtained from the patient, the patient was given preoperative antibiotics, and was transferred to the operating room. After successful induction of general anesthesia, pneumatic compression devices were placed on both lower extremities. An upper endoscopy was performed next. The oropharynx and upper esophagus appeared to be within normal limits. The stomach was entered and the scope was advanced all the way to the pylorus.? After all fluid and air were suctioned and the stomach was fully decompressed, the scope was withdrawn and secured in the mid esophagus. The patient was then prepped and draped in the usual sterile manner. Abdominal access was established at the right upper quadrant with the Chip technique. A 12 mm blunt trocar was inserted and the abdomen was insufflated with CO2 to a pressure of 15 mmHg. Following that additional ports were placed, specifically two 5 mm Versi-step ports to the left upper and one 5 mm Versi-step to the right upper quadrant. 1% lidocaine plain was used to infiltrate all port sites as well as all fascia defects. Following that, the patient was placed in a steep reverse Trendelenburg position. An additional 5 mm port was placed to the right flank for the Mediflex retractor that was used to retract the left lobe of the liver. There was a giant paraesophageal hernia with about half of the stomach herniated into the chest next to the esophagus. I then opened the gastrocolic ligament between the transverse colon and the greater curvature of the stomach with the ultrasonic device to enter the lesser sac and facilitate the ligation of the short gastric vessels. I started at at the upper third along the greater curvature and using the Thunderbeat, all attachments were divided. There was an obvious significant-sized paraesophageal hiatal hernia. The stomach was incarcerated into the mediastinum with multiple thick adhesions. Mobilization of the stomach was very difficult and required tedious and careful dissection of the proximal short gastric vessels. I continued dissecting along the hiatus toward the left bright into the mediastinum mobilizing the hernia sac from the mediastinum. The esophagus was carefully dissected off the aorta. The pleura spaces were not violated in either side. The pars flaccida was opened. It was actually herniated into the hernia defect. The vena cava was not dilated and it was carefully protected. I then continued by dissecting even further into the posterior retro-esophageal space all the way to the angle of His. I continued to mobilize the esophagus into the mediastinum circumferentially. The esophagus was densely adhrent to the aorta and the majority of these adhesions were mobilized. Both vagal nerves were seen and preserved. With extensive circumferential dissection into the mediastinum, I was able to bring the GE junction at least 3cm below the crura. I closed the hernia defect with five interrupted #0 Surgidac sutures using the Endo Stitch device, three of which were placed posterior and two of which anterior to the esophagus. The bites were carefully placed to include both the ventral and dorsal aspect of the two crura, advancing slightly more at the left bright as it was located more diagonally than the right. ? A gastropexy was then performed in order to prevent postoperative GERD and partial gastric volvulus. Several interrupted 2.0 Surgidac sutures were placed between the greater curvature of the dissected stomach and the previously divided greater omentum and gastro-colic ligament using the Endo-Stitch device. ?An upper endoscopy was performed. There was no narrowing at the GE junction or any esophageal injury. The scope was easily advanced all the way to the pylorus which was clearly visualized. There was no narrowing anywhere. I confirmed that the GE junction was 3cm intra-abdominally. At that point the gastroscope was withdrawn from the patient?s mouth while we were decompressing the bowel and the stomach from any remaining air. I looked into the lesser sac to see how the stomach was situating and it was situating well. There was no bleeding from the, spleen, or short gastric vessels. The Mediflex retractor was removed, and the undersurface of the liver was inspected and there was no bleeding. The patient was placed in supine position. Then 30cc of Ropivacaine plain with 10 mg of Dexamethasone were used to infiltrate the fascial closure as well as all skin incisions. At this point, the abdomen was deflated, all ports were removed under direct vision, and no bleeding was noted from any of the port sites. The skin incisions were irrigated with saline and were closed with 4-0 absorbable monofilament sutures. Steri- Strips and OpSites were used to cover all incisions. The patient was extubated and was transferred in stable condition to the recovery room for further care. I was present and performed all danielson parts of the procedure. Mr. Rider was the banking assistant. There were no residents to assist with this case. Mark Bajwa MD, PhD, FACS Surgeon: Jordan Bajwa MD Anesthesia: GETA, local and other (TAP block) Was an Fixed Income Director used for this Procedure?: No Fixed Income Director: Talib Rider Estimated blood loss (mL): 10 IV fluids (mL): 2,000 Urine output (mL): 0 (No Gómez to record output) Pathology: none sent Condition: stable Disposition: PACU
--- NOTE | 2024-10-16 09:59 | P.PNGS_ITS ---
Subjective Subjective Date of Service: 10/17/24 Interval history: Feels well. Mild incisional pain. She is tolerating phase 1 bariatric diet Physical Exam 2 Vital Signs: Vital Signs: Last Vital Signs Temp 98.2 F 10/16/24 08:10 Pulse 60 10/16/24 08:10 Resp 16 10/16/24 08:10 BP 142/72 H 10/16/24 08:10 Pulse Ox 97 10/16/24 08:10 O2 Del Method Room Air 10/16/24 08:10 BMI result Body Mass Index 23.3 GI: Inspection: Yes normal to inspection, Yes incision (clean, dry and intact) and Yes obesity Extrem: Right lower extremity: normal to inspection (no calf tenderness) L eft lower extremity: normal to inspection (no calf tenderness) Objective Data Active Medications Lactated Ringer's (Lr) 1,000 mls @ 100 mls/hr IVCONT .Q10H MAYANK Labs 10/17/24 05:23 10/17/24 05:23 Labs: Laboratory Results - last 24 hr 10/16/24 08:27 Blood Type O Positive Antibody Screen NEGATIVE Procedures Date of Service Date of Service: 10/17/24 Progress Note: A&P Assessment and plan (1) Strangulated paraesophageal hernia: Status: Acute Assessment and Plan: s/p laparoscopic lysis of adhesions, diaphragmatic hernia repair and gastropexy Doing well Will check am labs and if OK the patient will be discharged home (2) GERD (gastroesophageal reflux disease): Status: Acute (3) Anemia: Status: Acute (4) Dyslipidemia: Status: Acute (5) Cardiac pacemaker in situ: Status: Acute (6) Paroxysmal atrial fibrillation: Status: Acute (7) Atherosclerotic cardiovascular disease: Status: Acute (8) S/P repair of paraesophageal hernia: Status: Acute (9) Congenital intra-abdominal adhesions: Status: Acute Time Spent With Patient Time: Total time managing care of this patient today ____ minutes. Quality Stroke Does the patient have a stroke diagnosis?: No VTE Prior VTE?: No VTE Risk Level:: Surgical - moderate VTE Device Contraindication: N/A - Device Ordered VTE Drug Contraindication: Treatment Not Indicated
[2024-10-16] MEDS: levoFLOXacin/D5W 500 MG/100 ML PIGGYBACK 100 MG IV (10:19)
[2024-10-16] MEDS: Acetaminophen 1,000 MG/100 ML PIGGYBACK 400 MG IV (11:25)
--- NOTE | 2024-10-16 13:13 | P.DS_ITS ---
DS: Providers Provider Date of Service: 10/17/24 Date of admission: 10/16/24 07:55 Date of discharge: 10/17/24 Primary care physician: Bernabe Peterson MD DS: Diagnosis Discharge Diagnosis (1) Strangulated paraesophageal hernia: Status: Acute (2) GERD (gastroesophageal reflux disease): Status: Acute (3) Anemia: Status: Acute (4) Dyslipidemia: Status: Acute (5) Cardiac pacemaker in situ: Status: Acute (6) Paroxysmal atrial fibrillation: Status: Acute (7) Atherosclerotic cardiovascular disease: Status: Acute (8) S/P repair of paraesophageal hernia: Status: Acute (9) Congenital intra-abdominal adhesions: Status: Acute DS: Summary Hospital Course Hospital Course: ADMITTING DIAGNOSIS: gerd, paraesophageal hernia, PAF, htn, cardiomyopathy, SSS, hld ? DISCHARGE DIAGNOSIS: same, s/p laparoscopic repair paraesophageal hernia ? PAST SURGICAL HISTORY: pace maker placement, cesarian section, cardiac catheterization ? PROCEDURE: upper endoscopy, laparoscopic repair of paraesophageal hernia ? DISCHARGE SUMMARY: ? History of Present Illness: ? The patient is a?73 year-old woman with a BMI of?23.3 kg/m2 and associated co- morbidities as described above. The patient had extensive work-up and was electively scheduled for laparoscopic, possible open repair of paraesophageal hernia and gastropexy. Risks and complications of the surgery were discussed with the patient in advance, particularly the possibility of , pulmonary embolism, anastomotic leak, bleeding, bowel injury, GERD, cardiac, renal or pulmonary complications. The patient understood all the risks and was in agreement with the surgical plan. ? Hospital Course: ? The patient underwent an uneventful laparoscopic repair of paraesophageal hernia and gastropexy on the day of admission. Postoperatively, the patient was transferred to the surgical floor. The patient received IV Acetaminophen and IV dilaudid for pain control. Patient was started on bariatric phase 1 diet POD #0. On postoperative day one, the patient was feeling well without nausea, vomiting, fevers, or tachycardia. The patient had some mild incisional pain and the abdomen was soft. ? On the morning of postoperative day one, the patient was continued on 1 ounce of water or ice every half hour. During the day, the patient did fairly well, having some incisional pain, but able to ambulate adequately and to tolerate liquids well. ? Since the patient is doing well, we decided that the patient was ready to be discharged. The patient was given instructions to follow-up with me next week and to call my office for any fever over 101, persistent abdominal pain, nausea, vomiting, GERD, symptoms of DVT such as calf tenderness, or leg swelling, or pulmonary embolism such as chest pain or shortness of breath. The patient was also instructed to drink 40-60 ounces of liquids per day using the 1-ounce cups. The patient had been given prescriptions for Tylenol for pain, Zofran prn for nausea, and pantoprazole and carafate previously. The patient was encouraged to ambulate and use the incentive spirometer. The patient was allowed to shower, but no baths, and encouraged to stay active at home. All of these instructions were given to the patient personally. All questions were answered and the patient understood all instructions, the instructions were also given to the patient in print. Time Attestation Total time managing care of this patient today: 25 mintues. Discharge Coordination Time (in mins): 25 Quality: Safe Use of Opioids Does Pt have an Active Cancer Diagnosis on the Problem List?: No Quality: Stroke Does the patient have a stroke diagnosis?: No Physical Exam Vital Signs: Vital Signs: Last Vital Signs Temp 98.2 F 10/16/24 08:10 Pulse 60 10/16/24 08:10 Resp 16 10/16/24 08:10 BP 142/72 H 10/16/24 08:10 Pulse Ox 97 10/16/24 08:10 O2 Del Method Room Air 10/16/24 08:10 BMI result Body Mass Index 23.3 DS: Data Data Completed and Pending Completed studies during hospitalization [Text1]: Procedures Insertion of Pacemaker Lead into Right Atrium, Percutaneous Endoscopic Approach (08/31/23) Insertion of Pacemaker Lead into Right Ventricle, Percutaneous Endoscopic Approach (08/31/23) Insertion of Pacemaker, Dual Chamber into Chest Subcutaneous Tissue and Fascia, Open Approach (08/31/23) Inspection of Lower Intestinal Tract, Via Natural or Artificial Opening Endoscopic (09/16/24) Inspection of Upper Intestinal Tract, Via Natural or Artificial Opening Endoscopic (09/16/24) Anabaptist of Cardiac Rhythm, Single (07/29/23) Transfusion of Nonautologous Red Blood Cells into Peripheral Vein, Percutaneous Approach (09/16/24) Ultrasonography of Heart with Aorta, Transesophageal (07/29/23) Labs on day of discharge: Laboratory Results - last 24 hr 10/16/24 08:27 Blood Type O Positive Antibody Screen NEGATIVE Discharge Plan Discharge Anticipated Discharge Date/Time: 10/17/24 22:18 Patient Disposition: Home, Self-Care Discharge Diagnosis: s/p laparoscopic repair of paraesophageal hernia Referrals: Bernabe Peterson MD [Primary Care Provider] - 1 Week Discharge Medications: Continued rosuvastatin [Crestor] 40 mg tablet 40 mg PO DAILY Qty: 90 3RF Multaq 400 mg tablet 400 mg PO BID Qty: 60 5RF pantoprazole 40 mg tablet,delayed release (DR/EC) 40 mg PO DAILY Qty: 90 0RF sucralfate 100 mg/mL suspension 10 ml PO BID Qty: 600 2RF ondansetron 4 mg tablet,disintegrating 4 mg PO Q12H Qty: 20 0RF Rx Instructions: Only take one every 12 hours as needed if you have nausea fluticasone propionate 50 mcg/actuation spray,suspension 1 spray intranasal DAILY PRN (Reason: Allergy Symptoms) cholecalciferol (vitamin D3) 50 mcg (2,000 unit) capsule 50 mcg PO DAILY@1900 Held Eliquis 5 mg tablet 5 mg PO BID Qty: 180 3RF Hold Instructions: until discussed with Dr Bajwa fondaparinux 2.5 mg/0.5 mL syringe 2.5 mg subcut Q24H Qty: 5 1RF Hold Instructions: until discussed with Dr Bajwa Rx Instructions: Please start on Sunday10/11/24 and take one per day. Stop the Eliquis on Sunday10/11/24. Last dose of the fondaparinux should be on Sunday10/14/24. Do not take it on 10/15/24 or 10/16/24. Discharge Orders: Discharge Order (Routine); Ordered 10/17/24 Ordered By: Jordan Bawja Activity on Discharge: No heavy lifting Stand Alone Forms: Patient Portal Discharge page Print Language: French Care Plan Goals: resolved gerd Health Concerns: paraesophageal hernia Plan of Treatment: No tub baths, sex or returning to work until discussed at first post op appointment. No exercise, alcohol, tobacco or illegal drug use. Continue to use incentive spirometer hourly while awake. Walk in home for 5- 10 minutes every 2 hours during the first week. Follow all instructions in the bariatric handbook and call with any questions.Discharge Instructions 1. Please call your doctor or come back to the emergency room should any new symptoms arise. 2. You will receive a courtesy call from [facility] 24-48 hours after discharge. 3. Activity: abstain from alcohol, practice limited stair climbing, no bending, no driving, no exercise, no illicit substances, no lifting, no sex, no tub bath, no work. 4. Diet: continue as discussed with Dr. Bajwa. 5. Dressing Change/Wound Care: Your incision is covered by clear bandages and guaze underneath. If the area is tender, you may apply an ice pack for short intervals (no more than 20 minutes on, followed by at least 20 minutes off). Do not apply heat. Do not use creams, lotions, or topical antibiotics unless instructed to do so by your surgeon. These can cause infection or allergic reaction. 6. Call your doctor if: - Your temperature exceeds 101.5 F - You experience excessive pain or swelling - You have an unexpected reaction to medication - You have excessive bleeding - You experience continued vomiting/nausea - Your incision begins to separate - Your incision shows signs of infection such as increased redness, swelling, excessive pain, heat, or drainage (light blood or clear fluid is normal) 7. General instructions: No lifting greater than 5 lbs for 1 week and not more than 20lbs the next 3?weeks. No driving until seen at the office in 5-7 days after surgery. If you do not move your bowels in the next 2 days, please tell?Dr. Bajwa. Please walk around your home every hour or two to prevent blood clots from forming in your legs. You do not need to wake from sleeping to walk. Please sleep in a bed or couch to prevent kinking at the hips and knees. Please take your incentive spirometer (your lung lpn home health) home with you and use it for the next few days to prevent pneumonia. You may shower, no hot tubs, baths or swimming pools.?Please follow the post op diet instructions you are?given by Dr Bajwa? and text me daily at 5-6pm for an update.?If you have any issues or concerns or questions please communicate this to him via text.? The Celebrate shakes have all of the bariatric vitamins you need if you consume these shakes. If you are drinking other protein shakes, you will need to purchase the Celebrate multivitamins and calcium that are available in the hospital gift shop on the first floor of the main hospital.??Do not take anything without first discussing with Dr Bajwa. Please make sure you are consuming at least 40 ounces of fluids per day starting the?day AFTER your discharge from the hospital. Always drink 1-2 ml per minute using the 5ml?syringe. If you drink faster you may experience?bloating,?gas pain, burping, nausea or heartburn. In that case please slow down your pace and use the syringe to?understand better the?proper?pace and volume of drinking. Do not hesitate to contact the office with any questions at . The patient's medical history has been reviewed and they are considered low risk for post op DVT and therefore DVT prophylaxis is not considered necessary. Travel after surgery was reviewed. The patient has not disclosed any travel plans during the first 30 days after surgery and they have been advised that within the first 30 days after surgery any bus, plane, train or car travel over 2 hours in duration is contraindicated due to the possibility of developing blood clots from immobility. Any travel, needs to include periods of ambulation of 10 minutes in duration every 2 hours.? The patient was instructed to discuss any plans for travel during this period with their bariatric surgeon. Assessment: stable s/p laparoscopic paraesophageal hernia repair
[2024-10-16] MEDS: fentaNYL citrate/PF 100 MCG/2 ML VIAL 25 MCG IVPUSH ×2 (13:50→13:55)
[2024-10-16 14:22] LABS: Hematocrit 27.2 % (37.0-47.0); Hemoglobin 8.7 g/dl (12.0-16.0)
[2024-10-16 14:29] LABS: Anion Gap 10 (12-20); Blood Urea Nitrogen 14 mg/dL (9-16); Calcium 8.4 mg/dL (8.4-10.2); Carbon Dioxide 25 mmol/L (22-29); Chloride 106 mmol/L (96-108); Creatinine Clr Calc Pharmacy 54.9; Estimated Glomerular Filt Rate > 60; Glucose Random 108 mg/dL (60-115); Potassium 3.8 mmol/L (3.3-5.1); Sodium 137 mmol/L (135-145)
[2024-10-16] MEDS: Lactated Ringers 1,000 ML 100 ML IVCONT (15:04)
[2024-10-16] MEDS: Acetaminophen 1,000 MG/100 ML PIGGYBACK 16.7 MG IV ×2 (18:28→23:26)
[2024-10-16] MEDS: Dronedarone HCl 400 MG TABLET PO (20:19)
[2024-10-17] MEDS: Lactated Ringers 1,000 ML 100 ML IVCONT (01:37)
[2024-10-17] MEDS: HYDROmorphone HCl 0.5 MG/0.5 ML SYRINGE 0.25 MG IVPUSH ×2 (02:01→06:04)
[2024-10-17 03:11] VITALS: BP 146/69; PULSE 61; RESP 18; TEMP 36.6; O2SAT 95
[2024-10-17] MEDS: Acetaminophen 1,000 MG/100 ML PIGGYBACK 16.7 MG IV (05:04)
[2024-10-17] MEDS: Pantoprazole Sodium 40 MG/10 ML VIAL IVPUSH (05:04)
[2024-10-17 05:48] LABS: MANUAL DIFF FLAG NO
[2024-10-17 05:56] LABS: Basophils Percent Auto 0.1 % (0-2); Hematocrit 32.7 % (37.0-47.0); Hemoglobin 10.7 g/dl (12.0-16.0); Imm Gran Abs Auto 0.03 X10*3/uL (0.00-0.03); Imm Gran Pct Auto 0.4 % (0.0-0.4); Lymphocytes Absolute Auto 0.5 X10*3/uL (1.2-4.9); Mean Corpuscular HGB Conc 32.7 g/dl (31.0-35.0); Mean Corpuscular Hemoglobin 26.2 pg (27.0-33.0); Mean Corpuscular Volume 80.1 fL (80.0-98.0); Mean Platelet Volume 11.6 fL (9.4-12.3); Monocytes Absolute Auto 0.4 X10*3/uL (0.1-1.2); Monocytes Percent Auto 4.7 % (2-11); Neutrophils Absolute Auto 7.5 x10*3/uL (2.0-8.3); Neutrophils Percent Auto 88.8 % (45-73); Platelet Count 222 X10*3/uL (160-400); Red Blood Count 4.08 X10*6/uL (4.20-5.50); Red Cell Distribution Width 16.4 % (11.0-16.0); White Blood Count 8.5 X10*3/uL (4.8-10.8)
[2024-10-17 06:16] LABS: Anion Gap 13 (12-20); Blood Urea Nitrogen 12 mg/dL (9-16); Calcium 8.7 mg/dL (8.4-10.2); Carbon Dioxide 21 mmol/L (22-29); Chloride 105 mmol/L (96-108); Creatinine Clr Calc Pharmacy 57.4; Estimated Glomerular Filt Rate > 60; Glucose Random 105 mg/dL (60-115); Potassium 3.9 mmol/L (3.3-5.1); Sodium 135 mmol/L (135-145)
[2024-10-17 07:50] VITALS: BP 142/67; PULSE 60; RESP 16; TEMP 37.1; O2SAT 94
[2024-10-17] MEDS: Dronedarone HCl 400 MG TABLET PO (08:41)
--- NOTE | 2024-10-17 08:49 | HO.POSTANES ---
Post Anesthesia Evaluation Post Anesthesia Evaluation Date of Service: 10/17/24 Vital Signs: Vital Signs Temp Pulse Resp BP Pulse Ox O2 Del Method 10/17/24 07:50 98.8 F 60 16 142/67 H 94 Room Air 10/17/24 03:11 97.8 F 61 18 146/69 H 95 Room Air 10/16/24 23:33 98.0 F 58 18 158/68 H 93 Room Air Anesthesia: General Endotracheal-GETA Mental Status: Awake Pain Control: Satisfactory Nausea/Vomiting: None Hydration: Adequate Anesthesia-Related Issues: No Anes. Related Issues
--- NOTE | 2024-10-17 09:01 | MHC.CM.PN ---
DP: PT LEFT [facility] BEFORE CM COULD SEE HER.
== END 2024-10-17 09:01 | disposition home or self-care (01) | DRG 328 ==
LOC: HO.SSSA 07:56 → HO.S3 12:58
PROVIDERS: Physician Assistant Surgical; Admitting Provider Surgery; PCP Internal Medicine; Visit Provider Surgery
PROC: 0BQT4ZZ Repair Diaphragm, Percutaneous Endoscopic Approach (ICD-10-PCS; principal; 2024-10-16 10:20)
DX: K44.0 Diaphragmatic hernia with obstruction, without gangrene (principal); K21.9 Gastro-esophageal reflux disease without esophagitis; E78.5 Hyperlipidemia, unspecified; F41.9 Anxiety disorder, unspecified; D64.9 Anemia, unspecified; I49.5 Sick sinus syndrome; F32.A Depression, unspecified; I10 Essential (primary) hypertension; Z95.0 Presence of cardiac pacemaker; Z79.01 Long term (current) use of anticoagulants; Z79.899 Other long term (current) drug therapy
CPT/HCPCS: 36415; 71046; 80048; 85014; 85018; 85025; 86850; 86900; 86901; 86923; A4649; C9145; J0131; J1100; J1171; J1956; J2003; J2250; J2371; J2405; J2470; J2704; J2795; J3010; J7120; P9016

== ENCOUNTER → 2024-10-16 07:55 | Outpatient (BNV) | payer MEDICARE, SELFPAY | PROVIDERS: Admitting Provider Surgery; PCP Internal Medicine; Visit Provider Surgery | DX: K44.0 Diaphragmatic hernia with obstruction, without gangrene (principal); Z98.890 Other specified postprocedural states | CPT/HCPCS: 43281; 99024; 99499 ==

== ENCOUNTER 2024-10-23 08:08 | Outpatient (AMB) | payer MEDICARE, SELFPAY ==
--- OUTSIDE RECORDS SUMMARY | 2024-10-23 08:20 | XMS_ITS | Encounter Summary ---
Author Organization [facility] Address [address] [place] [address] Care Team Providers Care Bottom Loader Name Role Phone Unknown Primary Care Provider Encounter Details Date Type Department Care Team (Late st Contact Info) Description 12/31/2023 Scanned Document [address] [place] [id number] Radiology, Scan Social History Tobacco Use [...] on filedocumented in this encounter Care Teams Bottom Loader Relationship Specialty Start Date End Date Unknown Unknow Provider Address PCP - General 12/17/23 documented as of this encounter
--- OUTSIDE RECORDS SUMMARY | 2024-10-23 08:20 | XMS_ITS | Clinical Summary ---
Author Organization [facility] Address [address] [place] [address] Care Team Providers Care Cop Name Role Phone Unknown Primary Care Provider [phone] Allergies No known active allergies Social History [...] [facility] [place] [facility] [employer] Care Teams Cop Relationship Specialty Start Date End Date Unknown Unknow Provider Address PCP - General 12/17/23
--- NOTE | 2024-10-23 08:36 | A.OFFVIS_ITS ---
VS Expanded 10/23/24 08:45 BP 170/79 H Blood Pressure Location Rt brachial Blood Pressure Position Sitting Pulse 67 Pulse Source Pulse Oximeter Temp 95.3 F L Temperature Source Temporal Artery Scan Pulse Oximetry 96 Oxygen Delivery Method Room Air Height 5 ft 2 in Weight 122 lb 9.6 oz BMI 22.4 Body Fat % 33.1 Body Fat Mass 40.6 Fat Free Mass 82.0 Visceral Fat Rating 9.0 Body Water % 46.8 Body Water Mass 57.4 Muscle Mass/Score 77.8 Basal Metabolic Rate/Score 1,119 Intake Visit Reasons: OV Diaphragmatic Hernia 10/16/24 Allergies Sulfa (Sulfonamide Antibiotics) Allergy (Intermediate, Verified 10/23/24 08:41) Swollen red eyes cefuroxime Adverse Reaction (Intermediate, Uncoded 10/10/24 10:43) Stomach Upset HPI Comments Details: Patient is a pleasant 73-year-old female who returns to the office today in follow-up. She is 7 days post hiatal hernia repair performed on 10/16/2024. Tolerating 3 celebrate rebuild shakes with 1 scoop each and approximately 40-50 oz of fluids. She has moved her bowels. Denies any significant pain. No complaints of shortness of breath or reflux. [facility] Medical History (Updated 10/18/24 @ 00:02 by Trish Boateng) Foreign body alimentary tract Acute GI bleeding Cough Pharyngeal abscess Food allergy Swelling of lymph node Abnormal pharmacologic myocardial perfusion study Lightheadedness Personal history of kidney stones Flank pain Dysuria UTI symptoms Palpitations Postnasal drip Breast cancer screening Sinusitis Abdominal pain SOB (shortness of breath) on exertion Anemia Cardiac pacemaker in situ Paroxysmal atrial fibrillation HTN (hypertension) Cardiomegaly Chronic interstitial lung disease Visit for wound check Dizziness GERD (gastroesophageal reflux disease) Atrial fibrillation with rapid ventricular response Atrial fibrillation History of transesophageal echocardiography (ELIGIO) Left atrial dilatation Orthostatic lightheadedness Pain and swelling of left lower leg Exertional dyspnea Swelling of joint of left hand Pain in joint of left hand Overweight (BMI 25.0-29.9) Allergic rhinitis Pure hypercholesterolemia Osteoarthritis Dyslipidemia Vitamin D deficiency Age related osteoporosis Surgical History (Updated 10/23/24 @ 08:42 by Carline Starr CMA) S/P repair of paraesophageal hernia History of permanent cardiac pacemaker placement (~09/01/23) Status post cardiac catheterization History of cardiac cath Hx of cataract removal with insertion of prosthetic lens (~12/2014) Hx of section Family History Mother Prediabetes Hyperlipidemia Hypertension Father No problems noted. Social History Household Members: Spouse Housing: House Do you presently have visiting nurse or other home services: No Alcohol intake: former Patient Tobacco Use Status: Never used Tobacco e-Cigarette/Vaping Use: Never Used Second Hand Smoke Exposure: No service: No Current occupational status: retired Cognitive needs: No Hearing needs: Yes Vision needs: No Physical Exam GI Inspection: Yes incision (Clean, dry, intact.) Assessment & Plan Assessment & Plan (1) S/P repair of paraesophageal hernia: Code(s): Z98.890 - Other specified postprocedural states; Z87.19 - Personal history of other diseases of the digestive system Category: Surgical Plan: Patient is doing very well 1 week postoperatively. She is tolerating her meal plan without difficulty. She has no shortness of breath or complaints of reflux. She has moved her bowels. She will continue to wear her abdominal binder for the next 2 weeks with exercise and activity. She will continue to communicate with Dr. Bajwa to update her meal plan. We will have her return to the office in approximately 1 month
[2024-10-23 08:45] VITALS: BP 170/79; PULSE 67; TEMP 35.2; O2SAT 96; BMI 22.4
== END 2024-10-23 08:59 | disposition home or self-care (01) ==
LOC: HO.HBS 08:09
PROVIDERS: PCP Internal Medicine; Visit Provider Physician Assistant Surgical
DX: Z98.890 Other specified postprocedural states (principal); Z87.19 Personal history of other diseases of the digestive system
CPT/HCPCS: 99024

== ENCOUNTER → 2024-10-23 08:08 | Outpatient (BNVA) | payer MEDICARE, SELFPAY | PROVIDERS: PCP Internal Medicine; Visit Provider Physician Assistant Surgical | DX: Z87.19 Personal history of other diseases of the digestive system (principal); Z98.890 Other specified postprocedural states | CPT/HCPCS: 99212 ==

== ENCOUNTER 2024-10-31 09:40 | Outpatient (AMB) | payer MEDICARE, SELFPAY ==
--- NOTE | 2024-10-31 09:50 | A.OFFPC_ITS ---
Vital Signs 10/31/24 09:52 Height 5 ft 2 in Weight 121 lb 6 oz BMI 22.2 BP 110/70 Blood Pressure Location Lt brachial Position Sitting Pulse 61 Pulse Source Pulse Oximeter Temp 96.8 F Temp Source Temporal Artery Scan Pulse Oximetry (%) 96 Oxygen Delivery Method Room Air Intake Visit Reasons: hernia discharge [facility] 10/17 Intake Note: Patient is here for hospital discharge and TCM follow up. Patient was discharged from [facility] on 10/17/24. Registered Nursing Professor Required: No Digital Printer Operator: Present Accompanied by: Spouse Allergies Sulfa (Sulfonamide Antibiotics) Allergy (Intermediate, Verified 10/31/24 09:52) Swollen red eyes cefuroxime Adverse Reaction (Intermediate, Uncoded 10/31/24 09:52) Stomach Upset Tobacco use date assessed: 10/31/24 Fall risk assessment: No Falls in past year Last assessed Fall Risk: 10/31/24 Dental Screening Dental Screen Date: 09/26/24 HPI TCM TCM Information Date of Discharge 10/17/24 Discharged From [facility] Interactive Contact Date (Reference documentation from this date) 10/21/24 HPI Comments History of Present Illness Details 73 y/o Female Patient who presents to [facility] for [facility]. Patient underwent elective Laparascopic Surgery for para-esophageal hernia and Gastropexy on 10/16/24. She had Post-Op follow up appointment with Surgery 10/23. Today Pt reports mild dry cough and fatigue. Pt asking for allergy medication since she does have seasonal allergies due to Pollen. COUNT INCLUDES THE [facility] Medical History (Updated 10/18/24 @ 00:02 by Background Daemon) Foreign body alimentary tract Acute GI bleeding Cough Pharyngeal abscess Food allergy Swelling of lymph node Abnormal pharmacologic myocardial perfusion study Lightheadedness Personal history of kidney stones Flank pain Dysuria UTI symptoms Palpitations Postnasal drip Breast cancer screening Sinusitis Abdominal pain SOB (shortness of breath) on exertion Anemia Cardiac pacemaker in situ Paroxysmal atrial fibrillation HTN (hypertension) Cardiomegaly Chronic interstitial lung disease Visit for wound check Dizziness GERD (gastroesophageal reflux disease) Atrial fibrillation with rapid ventricular response Atrial fibrillation History of transesophageal echocardiography (ELIGIO) Left atrial dilatation Orthostatic lightheadedness Pain and swelling of left lower leg Exertional dyspnea Swelling of joint of left hand Pain in joint of left hand Overweight (BMI 25.0-29.9) Allergic rhinitis Pure hypercholesterolemia Osteoarthritis Dyslipidemia Vitamin D deficiency Age related osteoporosis Surgical History (Updated 10/31/24 @ 09:56 by GEORGIA Escobar) History of hernia surgery S/P repair of paraesophageal hernia History of permanent cardiac pacemaker placement (~09/01/23) Status post cardiac catheterization History of cardiac cath Hx of cataract removal with insertion of prosthetic lens (~12/2014) Hx of section Family History Mother Prediabetes Hyperlipidemia Hypertension Father No problems noted. Social History Household Members: Spouse Housing: House Do you presently have visiting nurse or other home services: No Alcohol intake: former Patient Tobacco Use Status: Never used Tobacco e-Cigarette/Vaping Use: Never Used Second Hand Smoke Exposure: No service: No Current occupational status: retired Cognitive needs: No Hearing needs: Yes Vision needs: No Questionnaire Thrive Questionnaire Date Thrive assessed: 09/26/24 KYEON-7 AMB Questionnaire KEYON-7 Date KEYON - 7 assessed: 09/26/24 Source: Developed by Drs. Al Amato, Nathaly Allison, Yvan Wu and colleagues, with an educational mindy from [employer]. Review of Systems Const All systems reviewed & are unremarkable except as noted in HPI and below Physical exam (Primary Care) Vital Signs: Last Vital Signs Temp 96.8 F 10/31/24 09:52 Pulse 61 10/31/24 09:52 BP 110/70 10/31/24 09:52 Pulse Ox 96 10/31/24 09:52 Oxygen Delivery Method Room Air 10/31/24 09:52 BMI result Body Mass Index 22.2 Tobacco/Smoking Status: Tobacco use Status Tobacco use date assessed 10/31/24 10/31/24 09:57 Patient Tobacco Use Status Never used Tobacco 10/31/24 09:51 e-Cigarette/Vaping Use Never Used 10/31/24 09:51 Thrive Assessment: Date of Thrive Assessment Date Thrive assessed 09/26/24 10/31/24 09:51 Const General: no acute distress Nutritional Appearance: well nourished Orientation/consciousness: patient oriented x3 Resp Effort & Inspection: normal respiratory effort Cardio Heart sounds: S1 normal heart sound present and S2 normal heart sound present GI Other: Well healed Surgical port incisions. Palpation (GI): Soft to palpation Auscultation: normal bowel sounds Neuro General: patient oriented x3 Coding Level of Care Code Est Pt Level 4 (37247) Diagnoses S/P repair of paraesophageal hernia Z98.890; Z87.19 Time Spent (min) 20 Assessment & Plan Assessment & Plan (1) S/P repair of paraesophageal hernia: Code(s): Z98.890 - Other specified postprocedural states; Z87.19 - Personal history of other diseases of the digestive system Category: Surgical Plan: Stable, recovering well at home. Medications: New famotidine 20 mg PO DAILY 30 tabs 0RF Z87.19 - Personal history of other diseases of the digestive system, Z98.890 - Other specified postprocedural states
[2024-10-31 09:52] VITALS: BP 110/70; PULSE 61; TEMP 36; O2SAT 96; BMI 22.2
--- OUTSIDE RECORDS SUMMARY | 2024-10-31 10:28 | XMS_ITS | Encounter Summary ---
Author Organization [facility] Address [address] [place] [address] Care Team Providers Care General Intern Name Role Phone Unknown Primary Care Provider Encounter Details Date Type Department Care Team (Late st Contact Info) Description 12/31/2023 Scanned Document [address] [place] [phone] Radiology, Scan Social History Tobacco Use [...] on filedocumented in this encounter Care Teams General Intern Relationship Specialty Start Date End Date Unknown Unknow Provider Address PCP - General 12/17/23 documented as of this encounter
--- OUTSIDE RECORDS SUMMARY | 2024-10-31 10:28 | XMS_ITS | Clinical Summary ---
Author Organization [facility] Address [address] [place] [address] Care Team Providers Care Customer Service Teller Name Role Phone Unknown Primary Care Provider [phone] Allergies No known active allergies Social History [...] [employer] [place] [employer] [employer] Care Teams Customer Service Teller Relationship Specialty Start Date End Date Unknown Unknow Provider Address PCP - General 12/17/23
--- OUTSIDE RECORDS SUMMARY | 2024-10-31 10:28 | XMS_ITS | Data Portability ---
Author Organization [place] - [facility], Allergy Address [address] [place] [phone] Care Team Providers Care Novelty Chain Maker Name Role Phone IRMA INTERIANO Primary Care [...] Address Organization Details Recorded Time Acute sialoadenitis [id number] Active 2023 KIESHA SAXENA MD [address] [place] [address], [phone], [facility] 06:57:32 Problem Notes None recorded. Procedures Surgical History Date Name Laterality Status Provider Name and Address Organization Details Recorded Time cardiac pacemaker procedure completed KIESHA SAXENA MD [address] [place] [address], [phone], [facility] 06/15/2024 06:55:47 Imaging Results None recorded. [...] Updated DateTime 06/13/2024 157.48 cm 24.8 kg/m2 02516.77 g Veronica Pate [place] - [facility] 06/13/2024 09:38:09 Social History None recorded. Functional Status None recorded. Mental Status None recorded. Family History Nothing Reported. Medical History Condition Response Heart Problems Y Hyperlipidemia Y Gynecological HistoryNo gynecological history recorded. Obstetrics History GPAL:G 0 P 0 0 0 0 Past Encounters Encounter ID Performer Location Encounter Start Date Encounter Closed Date Diagnosis/Indication Diagnosis SNOMED-CT Code Diagnosis ICD10 Code Diagnosis Note [id number] KIESHA SAXENA MD [facility] [address] [phone] 06/13/2024 09:18:56 06/13/2024 15:51:27 Acute sialoadenitis 468887554 K11.21 73-year-ol d female presents today for assessment after being seen in the [place] emergency department for acute left-sided facial swelling. This seemed to be preceded by allergy symptoms. She has been on antibiotic s and feels much improved. She had a CT scan at [facility] showing a 2 cm phlegmon versus abscess in the inferior deep left parotid gland, prominent lingual tonsils. On exam today, I see clear saliva from both Stensen's and [place]'s ducts. There is very minimal fullness in [...] Conti Member ID Guarantor Name 06/13/2024 1 [facility] (MEDICARE REPLACEMENT/ ADVANTAGE - PPO) [id number] 1 Yaritza Reich [id number] Yaritza Reich Notes Date Note Type Note Provider Name and Address Organization Details Recorded Time 06/13/2024 text/html 73 yo F with sialoadenitis. Finishing abx in 3 days, feels much better Initial symptoms included stuffy nose, watery eyes, felt a little tender, went to [facility] walk in, thought allergy related, next morning, then went to ER Has been on flonase for allergies, previously on allergy shots, going to set up repeat testing No trouble swallowing or sore throatNo ear pain once 4 years ago had some swelling on the right, felt like a blockage then went away She had a CT scan at [facility] showing a 2 cm phlegmon versus abscess in the inferior deep left parotid gland, prominent lingual tonsils. KIESHA SAXENA MD [address] [place] [address], [place], [phone], [facility] - [facility] 06/15/2024 07:00:44 OBGyn Episode No OBEpisode recorded.
== END 2024-10-31 11:15 | disposition home or self-care (01) ==
LOC: HO.HMCH 09:40
PROVIDERS: PCP Internal Medicine; Visit Provider Nurse Practitioner Family
DX: Z98.890 Other specified postprocedural states (principal); Z87.19 Personal history of other diseases of the digestive system

== ENCOUNTER → 2024-10-31 09:40 | Outpatient (BNVA) | payer MEDICARE, SELFPAY | PROVIDERS: PCP Internal Medicine; Visit Provider Nurse Practitioner Family | DX: Z09 Encounter for follow-up examination after completed treatment for conditions other than malignant neoplasm (principal); Z87.19 Personal history of other diseases of the digestive system; Z98.890 Other specified postprocedural states | CPT/HCPCS: 99212 ==

== ENCOUNTER 2024-11-18 13:22 | Outpatient (AMB) | payer MEDICARE, SELFPAY ==
--- NOTE | 2024-11-18 13:27 | A.OFFVIS_ITS ---
Vital Signs 11/18/24 13:28 Height 5 ft 2 in Weight 119 lb 0.794 oz BMI 21.8 BP 118/68 Blood Pressure Location Lt brachial Position Sitting Pulse 60 Intake Visit Reasons: 6 mth w/ ekg and pacer ck Intake Note: 6 month with ekg and [facility] check feeling better still a little brain fog Associate Media Director Required: No Allergies Sulfa (Sulfonamide Antibiotics) Allergy (Intermediate, Verified 10/31/24 09:52) Swollen red eyes cefuroxime Adverse Reaction (Intermediate, Uncoded 10/31/24 09:52) Stomach Upset Medication List - Last Reconciled 11/18/24 by Tomer Morales MD apixaban (Eliquis) 5 mg PO BID cholecalciferol (vitamin D3) 50 mcg PO DAILY@1900 famotidine 20 mg PO DAILY fluticasone propionate 50 mcg/actuation 1 spray intranasal DAILY PRN fondaparinux 2.5 mg (0.5 mL) subcut Q24H Multaq (dronedarone) 400 mg PO BID NS ondansetron 4 mg PO Q12H pantoprazole 40 mg PO DAILY rosuvastatin (Crestor) 40 mg PO DAILY sucralfate 10 mL PO BID HPI Comments Details: Yaritza comes for follow-up. She recently underwent major abdominal surgery with paraesophageal hernia repair laparoscopically. This was discovered in the setting of significant anemia. She says since then she is feeling a lot better. Her shortness of breath is much improved. Her back pain has improved. Overall functionality is improved. She has not noticed any recurrent bleeding episodes. She denies any prolonged palpitation irregular heartbeat. No exertional chest pain. No orthopnea, PND, leg edema. No overt bleeding issues. No neurologic events. [facility] Medical History Foreign body alimentary tract Acute GI bleeding Cough Pharyngeal abscess Food allergy Swelling of lymph node Abnormal pharmacologic myocardial perfusion study Lightheadedness Personal history of kidney stones Flank pain Dysuria UTI symptoms Palpitations Postnasal drip Breast cancer screening Sinusitis Abdominal pain SOB (shortness of breath) on exertion Anemia Cardiac pacemaker in situ Paroxysmal atrial fibrillation HTN (hypertension) Cardiomegaly Chronic interstitial lung disease Visit for wound check Dizziness GERD (gastroesophageal reflux disease) Atrial fibrillation with rapid ventricular response Atrial fibrillation History of transesophageal echocardiography (ELIGIO) Left atrial dilatation Orthostatic lightheadedness Pain and swelling of left lower leg Exertional dyspnea Swelling of joint of left hand Pain in joint of left hand Overweight (BMI 25.0-29.9) Allergic rhinitis Pure hypercholesterolemia Osteoarthritis Dyslipidemia Vitamin D deficiency Age related osteoporosis Surgical History History of hernia surgery S/P repair of paraesophageal hernia History of permanent cardiac pacemaker placement (~09/01/23) Status post cardiac catheterization History of cardiac cath Hx of cataract removal with insertion of prosthetic lens (~12/2014) Hx of section Family History Mother Prediabetes Hyperlipidemia Hypertension Father No problems noted. Social History Household Members: Spouse Housing: House Do you presently have visiting nurse or other home services: No Alcohol intake: former Patient Tobacco Use Status: Never used Tobacco e-Cigarette/Vaping Use: Never Used Second Hand Smoke Exposure: No service: No Current occupational status: retired Cognitive needs: No Hearing needs: Yes Vision needs: No Review of Systems Const Denies chills, Denies fatigue, Denies fever(s), Denies frequent falls, Denies weakness, Denies weight gain and Denies weight loss ENT Denies dizziness Card Denies chest pain, Denies leg edema, Denies lightheadedness, Denies palpitations, Denies dyspnea, Denies dyspnea on exertion, Denies orthopnea and Denies other (loss of consciousness) Resp Denies cough, Denies dyspnea and Denies dyspnea on exertion GI Denies hematochezia and Denies change in stool character Musc Denies abnormal gait, Denies muscle weakness, Denies numbness, Denies radiating pain into limb and Denies tingling Neuro Denies abnormal gait, Denies dizziness, Denies frequent falls, Denies numbness, Denies tingling and Denies weakness Endo Denies fatigue and Denies palpitations Physical Exam Vital Signs: Last Vital Signs Pulse 60 11/18/24 13:28 BP 118/68 11/18/24 13:28 BMI result Body Mass Index 21.8 Const General: cooperative, healthy appearing, comfortable, no acute distress and anxious Orientation/consciousness: patient oriented x3 Neck Neck: Yes normal visual inspection and Yes no JVD Chest Other: Pacer site left upper chest - dressing removed, incision well approximated, no bruising, swelling or drainage Resp Effort & Inspection: normal respiratory effort Auscultation: clear to auscultation bilaterally, no crackles, no rales, no rhonchi and no wheezes Cardio Jugular venous distension: no JVD Rate: regular rate Rhythm: regular rhythm Heart sounds: S1 normal heart sound present, S2 normal heart sound present, no murmurs and no rubs Neuro General: patient oriented x3 Extrem General: Yes normal to inspection, No no pedal edema and No calf tenderness Psych Appearance: grossly normal Mental Status: mental status grossly normal Speech and movement: Normal speech and movement present Office Procedures Cardiac Device Check Cardiac Device Check Details: Dual-chamber [place] pacemaker in place. Programmed in DDDR at 60 beats per minute. Atrial sensitivity is reduced and was reprogrammed to provide adequate safety. Ventricular sensing is excellent. Atrial capture thresholds excellent and reprogrammed to provide enhance battery life. Ventricular capture thresholds are stable. Pacing lead impedance is stable. Battery life is at 9- 10 years. No episodes of atrial fibrillation noted 03039-IT Cardiac Device Check, pacemaker dual lead Procedure code (CPT) selection complete EKG Details: EKG shows atrially paced rhythm with ventricularly sensed rhythm with right bundle-branch block 94276-Hbsiejzaccfltfxct, Complete Assessment & Plan Assessment & Plan (1) Cardiac pacemaker in situ: Code(s): Z95.0 - Presence of cardiac pacemaker Category: Medical Plan: Cardiac pacemaker in-situ for sick sinus syndrome with improved symptoms since pacemaker placement. Pacemaker is working well. Will follow remotely every 3 months. Follow up in the clinic in 6 months time. (2) Paroxysmal atrial fibrillation: Code(s): I48.0 - Paroxysmal atrial fibrillation Category: Medical Plan: Paroxysmal atrial fibrillation this elderly woman has suppressed on Multaq therapy. She is doing very well on it. No recurrent atrial fibrillation episode. She has derived significant clinical benefit from rhythm management continue pursue rhythm management. Stress mitigation strategies were discussed. Avoidance of stimulants was discussed. Continue full oral anticoagulation, currently on Eliquis 5 mg b.i.d.. Check CBC on a quarterly basis. If she has persistent and recurrent anemia that can not be corrected consider Watchman device. (3) Atherosclerotic cardiovascular disease: Code(s): I25.10 - Atherosclerotic heart disease of [place] coronary artery without angina pectoris Category: Medical Plan: CAD nonobstructive without any significant symptoms at current point time. Continue aggressive vascular risk factor modification. Advised to avoid aspirin therapy as she is already on full oral anticoagulation. Continue statin therapy. Target goal LDL less than 70 mg/dL. Advised lipid panel in near future. Blood pressure is currently well optimized. (4) Orthostatic lightheadedness: Code(s): R42 - Dizziness and giddiness Category: Medical Plan: Orthostatic lightheadedness improved with increase hydration. Advised to continue the same. Orthostatic precautions were discussed. Continue monitor blood pressure at home. Will follow up in the clinic in 6 months time. Orders: Orders Complete Blood Count no Diff 3 Months I48.0 - Paroxysmal atrial fibrillation Lipid Panel 3 Months I25.10 - Atherosclerotic heart disease of [place] coronary artery without angina pectoris Basic Metabolic Panel 3 Months I48.0 - Paroxysmal atrial fibrillation Coding Level of Care Code Est Pt Level 4 (53236) Complex EM visit Add On G2211 Diagnoses Cardiac pacemaker in situ Z95.0 Paroxysmal atrial fibrillation I48.0 Atherosclerotic cardiovascular disease I25.10 Orthostatic lightheadedness R42 CPT Codes Cardiac Device Check - Cardiac Device 2: 00480-DU Cardiac Device Check, pacemaker dual lead ([id number]) EKG - CPT: 93925-[id number], Complete ([id number])
[2024-11-18 13:28] VITALS: BP 118/68; PULSE 60; BMI 21.8
--- OUTSIDE RECORDS SUMMARY | 2024-11-18 14:32 | XMS_ITS | Clinical Summary ---
Author Organization [facility] Address [address] [place] [address] Care Team Providers Care Shank Skinner Name Role Phone Unknown Primary Care Provider [phone] Allergies No known active allergies Social History [...] Patients (1 - 1-dose 75+ series) 12/09/2023 COVID-19 Vaccine ( - 2023-2 5 season) 2024 09/26/2020, 08/29/2020 Influenza Vaccine 01/30/2025 Hepatitis B Vaccines Aged Out No long er eligible based on patient's age to complete this topic Insurance [employer] [place] MEDICARE Care Teams Shank Skinner Relationship Specialty Start Date End Date Unknown Unknow Provider Address PCP - General 12/17/23
--- OUTSIDE RECORDS SUMMARY | 2024-11-18 14:32 | XMS_ITS | Encounter Summary ---
Author Organization [facility] Address [address] [place] [address] Care Team Providers Care Dance Hall Host/Hostess Name Role Phone Unknown Primary Care Provider [phone] Encounter Details Date Type Department Care Team (Late st Contact Info) Description 12/31/2023 Scanned Document [address] [place] [phone] Radiology, Scan Social History Tobacco Use [...] on filedocumented in this encounter Care Teams Dance Hall Host/Hostess Relationship Specialty Start Date End Date Unknown Unknow Provider Address PCP - General 12/17/23 documented as of this encounter
--- OUTSIDE RECORDS SUMMARY | 2024-11-18 14:32 | XMS_ITS | Data Portability ---
Author Organization [place] - [facility], Allergy Address [address] [place] [phone] Care Team Providers Care Vocational Examiner Name Role Phone IRMA INTERIANO Primary Care [...] Address Organization Details Recorded Time Acute sialoadenitis [id number] Active 2023 KIESHA SAXENA MD [address] [place] [address], [phone], [facility] - [facility] 06:57:32 Problem Notes None recorded. Procedures Surgical History Date Name Laterality Status Provider Name and Address Organization Details Recorded Time cardiac pacemaker procedure completed KIESHA SAXENA MD [address] [place] [address], [phone], [facility] 06/15/2024 06:55:47 Imaging Results None recorded. [...] Updated DateTime 06/13/2024 157.48 cm 24.8 kg/m2 19873.77 g Veronica Pate [place] - [facility] 06/13/2024 09:38:09 Social History None recorded. Functional Status None recorded. Mental Status None recorded. Family History Nothing Reported. Medical History Condition Response Heart Problems Y Hyperlipidemia Y Gynecological HistoryNo gynecological history recorded. Obstetrics History GPAL:G 0 P 0 0 0 0 Past Encounters Encounter ID Performer Location Encounter Start Date Encounter Closed Date Diagnosis/Indication Diagnosis SNOMED-CT Code Diagnosis ICD10 Code Diagnosis Note [id number] KIESHA SAXENA MD [facility] [address] [phone] 06/13/2024 09:18:56 06/13/2024 15:51:27 Acute sialoadenitis [id number] K11.21 73-year-ol d female presents today for assessment after being seen in the [place] emergency department for acute left-sided facial swelling. This seemed to be preceded by allergy symptoms. She has been on antibiotic s and feels much improved. She had a CT scan at [facility] showing a 2 cm phlegmon versus abscess in the inferior deep left parotid gland, prominent lingual tonsils. On exam today, I see clear saliva from both Stensen's and [place]'s ducts. There is very minimal fullness in [...] Recorded Advance Directives Directive None Recorded Payers Insurance Date Sequence Insurance Name Policy Number Policy Conti Covered Member ID Conti Member ID Guarantor Name 06/13/2024 1 [facility] (MEDICARE REPLACEMENT/ ADVANTAGE - PPO) [id number] 1 Yaritza Reich [id number] Yaritza Reich Notes Date Note Type Note Provider Name and Address Organization Details Recorded Time 06/13/2024 text/html 73 yo F with sialoadenitis. Finishing abx in 3 days, feels much better Initial symptoms included stuffy nose, watery eyes, felt a little tender, went to [facility] walk in, thought allergy related, next morning, then went to ER Has been on flonase for allergies, previously on allergy shots, going to set up repeat testing No trouble swallowing or sore throatNo ear pain once 4 years ago had some swelling on the right, felt like a blockage then went away She had a CT scan at [facility] showing a 2 cm phlegmon versus abscess in the inferior deep left parotid gland, prominent lingual tonsils. KIESHA SAXENA MD [address] [place] [address], [place], [phone], [facility] - [facility] 06/15/2024 07:00:44 OBGyn Episode No OBEpisode recorded.
== END 2024-11-18 13:57 | disposition home or self-care (01) ==
LOC: HO.HCS 13:23
PROVIDERS: PCP Internal Medicine; Visit Provider Internal Medicine Cardiovascular Disease
DX: I48.0 Paroxysmal atrial fibrillation (principal); Z95.0 Presence of cardiac pacemaker; I25.10 Atherosclerotic heart disease of native coronary artery without angina pectoris; R42 Dizziness and giddiness
CPT/HCPCS: 93010; 93280; 99214; G2211

== ENCOUNTER → 2024-11-18 13:22 | Outpatient (BNVA) | payer MEDICARE, SELFPAY | PROVIDERS: PCP Internal Medicine; Visit Provider Internal Medicine Cardiovascular Disease | DX: I48.0 Paroxysmal atrial fibrillation (principal); I25.10 Atherosclerotic heart disease of native coronary artery without angina pectoris; R42 Dizziness and giddiness; Z95.0 Presence of cardiac pacemaker; Z87.891 Personal history of nicotine dependence | CPT/HCPCS: 93005; 93280; 99212 ==

== ENCOUNTER 2024-11-19 08:00 | Outpatient (REF) | payer MEDICARE, SELFPAY ==
--- OUTSIDE RECORDS SUMMARY | 2024-11-19 09:12 | XMS_ITS | Encounter Summary ---
Author Organization [facility] Address [address] [place] [address] Care Team Providers Care Relief Map Modeler Name Role Phone Unknown Primary Care Provider Encounter Details Date Type Department Care Team (Late st Contact Info) Description 12/31/2023 Scanned Document [address] [place] [phone] Radiology, Scan Social History Tobacco Use [...] on filedocumented in this encounter Care Teams Relief Map Modeler Relationship Specialty Start Date End Date Unknown Unknow Provider Address PCP - General 12/17/23 documented as of this encounter
--- OUTSIDE RECORDS SUMMARY | 2024-11-19 09:13 | XMS_ITS | Clinical Summary ---
Author Organization [facility] Address [address] [place] [address] Care Team Providers Care Anesthesiology Resident Name Role Phone Unknown Primary Care Provider [phone] Allergies No known active allergies Social History [...] [employer] MED[employer] Care Teams Anesthesiology Resident Relationship Specialty Start Date End Date Unknown Unknow Provider Address PCP - General 12/17/23
[2024-11-19 10:06] LABS: MANUAL DIFF FLAG NO
[2024-11-19 10:15] LABS: Basophils Absolute Auto 0.1 X10*3/uL (0.0-0.2); Basophils Percent Auto 0.8 % (0-2); Eosinophils Absolute Auto 0.4 X10*3/uL (0.0-0.4); Eosinophils Percent Auto 6.2 % (0-4); Hematocrit 35.7 % (37.0-47.0); Hemoglobin 11.8 g/dl (12.0-16.0); Imm Gran Abs Auto 0.01 X10*3/uL (0.00-0.03); Imm Gran Pct Auto 0.2 % (0.0-0.4); Lymphocytes Absolute Auto 1.3 X10*3/uL (1.2-4.9); Lymphocytes Percent Auto 19.3 % (20-40); Mean Corpuscular HGB Conc 33.1 g/dl (31.0-35.0); Mean Corpuscular Hemoglobin 26.8 pg (27.0-33.0); Mean Platelet Volume 12.3 fL (9.4-12.3); Monocytes Absolute Auto 0.6 X10*3/uL (0.1-1.2); Monocytes Percent Auto 9.6 % (2-11); Neutrophils Absolute Auto 4.2 x10*3/uL (2.0-8.3); Neutrophils Percent Auto 63.9 % (45-73); Platelet Count 248 X10*3/uL (160-400); Red Blood Count 4.41 X10*6/uL (4.20-5.50); Red Cell Distribution Width 17.9 % (11.0-16.0); White Blood Count 6.5 X10*3/uL (4.8-10.8)
[2024-11-19 12:02] LABS: Alanine Aminotransferase 10 U/L (0-31); Alkaline Phosphatase 67 U/L (39-117); Anion Gap 10 (12-20); Aspartate Amino Transferase 22 U/L (5-31); Bilirubin Total 0.4 mg/dL (0.0-1.0); Blood Urea Nitrogen 13 mg/dL (9-16); Calcium 9.1 mg/dL (8.4-10.2); Carbon Dioxide 28 mmol/L (22-29); Chloride 104 mmol/L (96-108); Estimated Glomerular Filt Rate > 60; Glucose Random 107 mg/dL (60-115); Iron 52 mcg/dL (30-160); Percent Iron Saturation 16 % (15-50); Potassium 3.1 mmol/L (3.3-5.1); Sodium 139 mmol/L (135-145); Total Iron Binding Capacity 327 mcg/dL (228-428); Total Protein 6.9 g/dL (6.5-8.0); Unsaturated Iron Binding 275 ug/dL
[2024-11-19 12:04] LABS: Folate 6.5 ng/mL (> or = 4.0); Vitamin B12 382 pg/mL (200-900)
[2024-11-19 12:28] LABS: Ferritin 28 ng/mL (10-250); Vitamin D 25-OH Total 49.7 ng/mL (>30)
[2024-11-22 20:14] LABS: Vitamin A 36 mcg/dL (38-98)
[2024-11-23 19:28] LABS: Zinc 44 mcg/dL (60-130)
[2024-11-24 16:09] LABS: Vitamin B1 <6 nmol/L (8-30)
== END 2024-11-19 08:01 | disposition home or self-care (01) ==
LOC: HO.HMGCLDS 08:00
PROVIDERS: PCP Internal Medicine; Visit Provider Surgery
DX: D64.9 Anemia, unspecified (principal)
CPT/HCPCS: 36415; 80053; 82306; 82607; 82728; 82746; 83540; 84425; 84590; 84630; 85025

== ENCOUNTER 2024-11-27 10:13 | Outpatient (AMB) | payer MEDICARE, SELFPAY ==
--- NOTE | 2024-11-27 10:19 | MHC.NURWM ---
Intake Intake Visit Reasons: OV Diaphragmatic Hernia 10/16/24 Allergies Sulfa (Sulfonamide Antibiotics) Allergy (Intermediate, Verified 10/31/24 09:52) Swollen red eyes cefuroxime Adverse Reaction (Intermediate, Uncoded 10/31/24 09:52) Stomach Upset Coding
[2024-11-27 10:31] VITALS: BP 123/59; PULSE 67; TEMP 35.3; O2SAT 98; BMI 21.5
--- NOTE | 2024-11-27 10:31 | A.OFFVIS_ITS ---
VS Expanded 11/27/24 10:31 BP 123/59 L Blood Pressure Location Rt brachial Blood Pressure Position Sitting Pulse 67 Pulse Source Pulse Oximeter Temp 95.6 F L Temperature Source Temporal Artery Scan Pulse Oximetry 98 Oxygen Delivery Method Room Air Height 5 ft 2 in Weight 117 lb 9.6 oz BMI 21.5 Intake Visit Reasons: OV Diaphragmatic Hernia 10/16/24 Intake Note: neurological surgeon tandarien laborer tanbark advised no tanita Allergies Sulfa (Sulfonamide Antibiotics) Allergy (Intermediate, Verified 11/27/24 10:32) Swollen red eyes cefuroxime Adverse Reaction (Intermediate, Uncoded 10/31/24 09:52) Stomach Upset HPI Comments Details: Patient is a pleasant 73-year-old female who returns to the office today in follow-up. She is 6 weeks post hiatal hernia repair performed on 10/16/2024. Tolerating a new meal plan as given to her by Dr. Bajwa including: [place] yogurt Protein bar Meal with 6 forks protein and 6 forks vegetables Cottage cheese Meal with 6 forks protein and 6 forks vegetables. Denies any significant pain. No complaints of shortness of breath or reflux. [facility] Medical History Foreign body alimentary tract Acute GI bleeding Cough Pharyngeal abscess Food allergy Swelling of lymph node Abnormal pharmacologic myocardial perfusion study Lightheadedness Personal history of kidney stones Flank pain Dysuria UTI symptoms Palpitations Postnasal drip Breast cancer screening Sinusitis Abdominal pain SOB (shortness of breath) on exertion Anemia Cardiac pacemaker in situ Paroxysmal atrial fibrillation HTN (hypertension) Cardiomegaly Chronic interstitial lung disease Visit for wound check Dizziness GERD (gastroesophageal reflux disease) Atrial fibrillation with rapid ventricular response Atrial fibrillation History of transesophageal echocardiography (ELIGIO) Left atrial dilatation Orthostatic lightheadedness Pain and swelling of left lower leg Exertional dyspnea Swelling of joint of left hand Pain in joint of left hand Overweight (BMI 25.0-29.9) Allergic rhinitis Pure hypercholesterolemia Osteoarthritis Dyslipidemia Vitamin D deficiency Age related osteoporosis Surgical History History of hernia surgery S/P repair of paraesophageal hernia History of permanent cardiac pacemaker placement (~09/01/23) Status post cardiac catheterization History of cardiac cath Hx of cataract removal with insertion of prosthetic lens (~12/2014) Hx of section Family History Mother Prediabetes Hyperlipidemia Hypertension Father No problems noted. Social History Household Members: Spouse Housing: House Do you presently have visiting nurse or other home services: No Alcohol intake: former Patient Tobacco Use Status: Never used Tobacco e-Cigarette/Vaping Use: Never Used Second Hand Smoke Exposure: No service: No Current occupational status: retired Cognitive needs: No Hearing needs: Yes Vision needs: No Assessment & Plan Assessment & Plan (1) S/P repair of paraesophageal hernia: Code(s): Z98.890 - Other specified postprocedural states; Z87.19 - Personal history of other diseases of the digestive system Category: Surgical Plan: Overall, patient is doing very well. She is going to discuss with Dr. Bajwa to streamline her meal plans so that she may have 3 meals per day as she and her go camping and this will be easier for her. She may exercise as she wishes. Continue the pace of drinking as she has been doing. We will have her return to the clinic for three-month follow-up.
--- OUTSIDE RECORDS SUMMARY | 2024-11-27 10:33 | XMS_ITS | Data Portability ---
Author Organization [place] - [facility], Allergy Address [address] [place] [phone] Care Team Providers Care Flight Tower Dispatcher Name Role Phone IRMA INTERIANO Primary Care Provider [phone] Assessment No assessment recorded. Plan of Treatment [...] Address Organization Details Recorded Time Acute sialoadenitis 786279150 Active 2023 KIESHA SAXENA MD [address] [place] [address], [phone], [facility] 06:57:32 Problem Notes None recorded. Procedures Surgical History Date Name Laterality Status Provider Name and Address Organization Details Recorded Time cardiac pacemaker procedure completed KIESHA SAXENA MD [address] [place] [address], [phone], [facility] 06/15/2024 06:55:47 Imaging Results None recorded. [...] Updated DateTime 06/13/2024 157.48 cm 24.8 kg/m2 49741.77 g Veronica Pate [place] - [facility] 06/13/2024 09:38:09 Social History None recorded. Functional Status None recorded. Mental Status None recorded. Family History Nothing Reported. Medical History Condition Response Heart Problems Y Hyperlipidemia Y Gynecological HistoryNo gynecological history recorded. Obstetrics History GPAL:G 0 P 0 0 0 0 Past Encounters Encounter ID Performer Location Encounter Start Date Encounter Closed Date Diagnosis/Indication Diagnosis SNOMED-CT Code Diagnosis ICD10 Code Diagnosis Note [id number] KIESHA SAXENA MD [facility] [address] [phone] 06/13/2024 09:18:56 06/13/2024 15:51:27 Acute sialoadenitis 661962404 K11.21 73-year-ol d female presents today for assessment after being seen in the [place] emergency department for acute left-sided facial swelling. This seemed to be preceded by allergy symptoms. She has been on antibiotic s and feels much improved. She had a CT scan at [facility] showing a 2 cm phlegmon versus abscess in the inferior deep left parotid gland, prominent lingual tonsils. On exam today, I see clear saliva from both Stensen's and Charles Mix's ducts. There is very minimal fullness in [...] Conti Member ID Guarantor Name 06/13/2024 1 [facility] (MEDICARE REPLACEMENT/ ADVANTAGE - PPO) [id number] 1 Yaritza Reich [id number] Yaritza Reich Notes Date Note Type Note Provider Name and Address Organization Details Recorded Time 06/13/2024 text/html 73 yo F with sialoadenitis. Finishing abx in 3 days, feels much better Initial symptoms included stuffy nose, watery eyes, felt a little tender, went to [facility] walk in, thought allergy related, next morning, then went to ER Has been on flonase for allergies, previously on allergy shots, going to set up repeat testing No trouble swallowing or sore throatNo ear pain once 4 years ago had some swelling on the right, felt like a blockage then went away She had a CT scan at [facility] showing a 2 cm phlegmon versus abscess in the inferior deep left parotid gland, prominent lingual tonsils. KIESHA SAXENA MD [address] [place] [address], [place], [phone], [facility] - [facility] 06/15/2024 07:00:44 OBGyn Episode No OBEpisode recorded.
== END 2024-11-27 10:58 | disposition home or self-care (01) ==
LOC: HO.HBS 10:14
PROVIDERS: PCP Internal Medicine; Visit Provider Physician Assistant Surgical
DX: Z98.890 Other specified postprocedural states (principal); Z87.19 Personal history of other diseases of the digestive system
CPT/HCPCS: 99024

== ENCOUNTER → 2024-11-27 10:13 | Outpatient (BNVA) | payer MEDICARE, SELFPAY | PROVIDERS: PCP Internal Medicine; Visit Provider Physician Assistant Surgical | DX: Z48.815 Encounter for surgical aftercare following surgery on the digestive system (principal); Z98.890 Other specified postprocedural states; Z87.19 Personal history of other diseases of the digestive system | CPT/HCPCS: 99212 ==

== ENCOUNTER 2024-12-15 08:03 | Outpatient (AMB) | payer MEDICARE, SELFPAY ==
[2024-12-15 08:07] VITALS: BP 124/70; PULSE 71; TEMP 36.7; O2SAT 99; BMI 21.1
--- NOTE | 2024-12-15 08:07 | MHC.OFFWIV ---
Intake Vital Signs 12/15/24 08:07 Height 5 ft 2 in Weight 115 lb 8 oz BMI 21.1 BP 124/70 Blood Pressure Location Lt brachial Position Sitting Pulse 71 Pulse Source Pulse Oximeter Temp 98.0 F Temp Source Oral Pulse Oximetry (%) 99 Oxygen Delivery Method Room Air Intake Visit Reasons: EP ? infected toe nail on RT foot Intake Note: Pt presents to the office today for c/o an infected right great toe. Pt states she had a partial toenail removal 1 week ago. Pt states she is going out of state today and just wants to make sure that it is not infected. Patient Tobacco Use Status: Never used Tobacco Allergies Sulfa (Sulfonamide Antibiotics) Allergy (Intermediate, Verified 12/15/24 08:10) Swollen red eyes cefuroxime Adverse Reaction (Intermediate, Uncoded 12/15/24 08:10) Stomach Upset HPI HPI Comments History of Present Illness Details History - The patient is a 74-year-old female presenting with concern for infection following partial nail removal of right great toenail. - The procedure was performed one week ago by a solid waste technician, and the patient reports normal serosanguinous drainage. - No pain or fever is present, but the patient is vigilant about signs of infection due to upcoming travel. - Current care includes Epsom salt soaks twice daily, with avoidance of hydrogen peroxide. Physical Exam Physical Exam General: Cooperative, healthy appearing, comfortable, no acute distress and well developed Orientation: Patient oriented x3 Limitations: No limitations Head: Normal to inspection Ears: Hearing grossly normal bilaterally Nose: Normal External nose present Face and sinus: Normal facial exam Mouth: normal, moist oral mucosa Eyes: Appearance normal, both eyes and all related structures Neck: Normal visual inspection and Yes full ROM Respiratory: Normal respiratory effort and able to speak in complete sentences. Neuro: Patient oriented x3 Extremities: moving all extremities normally, Right great toenail with slight tenderness noted on pressure at the site of partial nail removal, no signs of infection, no warmth, and no drainage of concern, only scant serosanginous fluid noted. [facility] Medical History (Updated 12/15/24 @ 08:28 by Tita Palacios PA-C) Visit for wound check Foreign body alimentary tract Acute GI bleeding Cough Pharyngeal abscess Food allergy Swelling of lymph node Abnormal pharmacologic myocardial perfusion study Lightheadedness Personal history of kidney stones Flank pain Dysuria UTI symptoms Palpitations Postnasal drip Breast cancer screening Sinusitis Abdominal pain SOB (shortness of breath) on exertion Anemia Cardiac pacemaker in situ Paroxysmal atrial fibrillation HTN (hypertension) Cardiomegaly Chronic interstitial lung disease Dizziness GERD (gastroesophageal reflux disease) Atrial fibrillation with rapid ventricular response Atrial fibrillation History of transesophageal echocardiography (ELIGIO) Left atrial dilatation Orthostatic lightheadedness Pain and swelling of left lower leg Exertional dyspnea Swelling of joint of left hand Pain in joint of left hand Overweight (BMI 25.0-29.9) Allergic rhinitis Pure hypercholesterolemia Osteoarthritis Dyslipidemia Vitamin D deficiency Age related osteoporosis Surgical History History of hernia surgery S/P repair of paraesophageal hernia History of permanent cardiac pacemaker placement (~09/01/23) Status post cardiac catheterization History of cardiac cath Hx of cataract removal with insertion of prosthetic lens (~12/2014) Hx of section Family History Mother Prediabetes Hyperlipidemia Hypertension Father No problems noted. Social History Household Members: Spouse Housing: House Do you presently have visiting nurse or other home services: No Alcohol intake: former Patient Tobacco Use Status: Never used Tobacco e-Cigarette/Vaping Use: Never Used Second Hand Smoke Exposure: No service: No Current occupational status: retired Cognitive needs: No Hearing needs: Yes Vision needs: No Review of Systems Const All systems reviewed & are unremarkable except as noted in HPI and below Physical Exam Vital Signs: Last Vital Signs Temp 98.0 F 12/15/24 08:07 Pulse 71 12/15/24 08:07 BP 124/70 12/15/24 08:07 Pulse Ox 99 12/15/24 08:07 Oxygen Delivery Method Room Air 12/15/24 08:07 BMI result Body Mass Index 21.1 Assessment & Plan Assessment & Plan (1) Visit for wound check: Code(s): Z51.89 - Encounter for other specified aftercare Plan: 1. Post-Procedural Care Following Partial Nail Removal - Continue Epsom salt soaks twice daily. - Monitor for signs of infection such as increased pain, warmth, fevers or purulent drainage. - Avoid hydrogen peroxide to prevent tissue damage. Coding Level of Care Code Est Pt Level 3 (01737) Diagnoses Visit for wound check Z51.89
--- OUTSIDE RECORDS SUMMARY | 2024-12-15 08:08 | XMS_ITS | Data Portability ---
Author Organization [place] - [facility], Allergy Address [address] [place] [phone] Care Team Providers Care Special Projects Coordinator Name Role Phone IRMA INTERIANO Primary Care [...] Address Organization Details Recorded Time Acute sialoadenitis [id number] Active 2023 KIESHA SAXENA MD [address] [place] [address], [phone], [facility] 06:57:32 Problem Notes None recorded. Procedures Surgical History Date Name Laterality Status Provider Name and Address Organization Details Recorded Time cardiac pacemaker procedure completed KIESHA SAXENA MD [address] [place] [address], [phone], [facility] 06/15/2024 06:55:47 Imaging Results None recorded. [...] Updated DateTime 06/13/2024 157.48 cm 24.8 kg/m2 66640.77 g Veronica Pate [place] - [facility] 06/13/2024 09:38:09 Social History None recorded. Functional Status None recorded. Mental Status None recorded. Family History Nothing Reported. Medical History Condition Response Heart Problems Y Hyperlipidemia Y Gynecological HistoryNo gynecological history recorded. Obstetrics History GPAL:G 0 P 0 0 0 0 Past Encounters Encounter ID Performer Location Encounter Start Date Encounter Closed Date Diagnosis/Indication Diagnosis SNOMED-CT Code Diagnosis ICD10 Code Diagnosis Note [id number] KIESHA SAXENA MD [facility] [address] [phone] 06/13/2024 09:18:56 06/13/2024 15:51:27 Acute sialoadenitis 488160405 K11.21 73-year-ol d female presents today for assessment after being seen in the [place] emergency department for acute left-sided facial swelling. This seemed to be preceded by allergy symptoms. She has been on antibiotic s and feels much improved. She had a CT scan at [facility] showing a 2 cm phlegmon versus abscess in the inferior deep left parotid gland, prominent lingual tonsils. On exam today, I see clear saliva from both Stensen's and Desoto's ducts. There is very minimal fullness in [...] Member ID Guarantor Name 06/13/2024 1 [facility] (MEDICARE REPLACEMENT/ ADVANTAGE - PPO) [id number] 1 Yaritza Reich [id number] Yaritza Reich Notes Date Note Type Note Provider Name and Address Organization Details Recorded Time 06/13/2024 text/html 73 yo F with sialoadenitis. Finishing abx in 3 days, feels much better Initial symptoms included stuffy nose, watery eyes, felt a little tender, went to [facility] walk in, thought allergy related, next morning, then went to ER Has been on flonase for allergies, previously on allergy shots, going to set up repeat testing No trouble swallowing or sore throatNo ear pain once 4 years ago had some swelling on the right, felt like a blockage then went away She had a CT scan at [facility] showing a 2 cm phlegmon versus abscess in the inferior deep left parotid gland, prominent lingual tonsils. KIESHA SAXENA MD [address] [place] [address], [place], [phone], [facility] - [facility] 06/15/2024 07:00:44 OBGyn Episode No OBEpisode recorded.
== END 2024-12-15 08:34 | disposition home or self-care (01) ==
PROVIDERS: PCP Internal Medicine; Visit Provider Physician Assistant
DX: Z51.89 Encounter for other specified aftercare (principal)

== ENCOUNTER → 2024-12-15 08:03 | Outpatient (BNVA) | payer MEDICARE, SELFPAY | PROVIDERS: PCP Internal Medicine; Visit Provider Physician Assistant | DX: Z51.89 Encounter for other specified aftercare (principal); Z98.890 Other specified postprocedural states | CPT/HCPCS: 99212 ==

== ENCOUNTER → 2025-01-06 23:59 | Outpatient (BNV) | payer MEDICARE, SELFPAY ==
--- NOTE | 2025-01-07 15:06 | A.OFFVIS_ITS ---
Intake Visit Reasons: Remote device check- [facility] Allergies Sulfa (Sulfonamide Antibiotics) Allergy (Intermediate, Verified 12/15/24 08:10) Swollen red eyes cefuroxime Adverse Reaction (Intermediate, Uncoded 12/15/24 08:10) Stomach Upset [facility] Medical History (Updated 12/15/24 @ 08:28 by Tita Palacios PA-C) Visit for wound check Foreign body alimentary tract Acute GI bleeding Cough Pharyngeal abscess Food allergy Swelling of lymph node Abnormal pharmacologic myocardial perfusion study Lightheadedness Personal history of kidney stones Flank pain Dysuria UTI symptoms Palpitations Postnasal drip Breast cancer screening Sinusitis Abdominal pain SOB (shortness of breath) on exertion Anemia Cardiac pacemaker in situ Paroxysmal atrial fibrillation HTN (hypertension) Cardiomegaly Chronic interstitial lung disease Dizziness GERD (gastroesophageal reflux disease) Atrial fibrillation with rapid ventricular response Atrial fibrillation History of transesophageal echocardiography (ELIGIO) Left atrial dilatation Orthostatic lightheadedness Pain and swelling of left lower leg Exertional dyspnea Swelling of joint of left hand Pain in joint of left hand Overweight (BMI 25.0-29.9) Allergic rhinitis Pure hypercholesterolemia Osteoarthritis Dyslipidemia Vitamin D deficiency Age related osteoporosis Surgical History History of hernia surgery S/P repair of paraesophageal hernia History of permanent cardiac pacemaker placement (~09/01/23) Status post cardiac catheterization History of cardiac cath Hx of cataract removal with insertion of prosthetic lens (~12/2014) Hx of section Family History Mother Prediabetes Hyperlipidemia Hypertension Father No problems noted. Social History Household Members: Spouse Housing: House Do you presently have visiting nurse or other home services: No Alcohol intake: former Patient Tobacco Use Status: Never used Tobacco e-Cigarette/Vaping Use: Never Used Second Hand Smoke Exposure: No service: No Current occupational status: retired Cognitive needs: No Hearing needs: Yes Vision needs: No Office Procedures Cardiac Device Check Cardiac Device Check Details: Remote pacemaker report generated 01/05/2025. Pacemaker function is adequate [id number] Cardiac Device Interrogation, pacemaker Procedure code (CPT) selection complete Assessment & Plan Assessment & Plan (1) Cardiac pacemaker in situ: Code(s): Z95.0 - Presence of cardiac pacemaker Category: Medical Plan: See above Coding Level of Care Code Procedure Only Diagnoses Cardiac pacemaker in situ Z95.0 CPT Codes Cardiac Device Check - Cardiac Device 12: [id number] Cardiac Device Interrogation, pacemaker ([id number])
== END ==
PROVIDERS: PCP Internal Medicine; Visit Provider Internal Medicine Cardiovascular Disease
DX: Z45.018 Encounter for adjustment and management of other part of cardiac pacemaker (principal)
CPT/HCPCS: 93294

== ENCOUNTER 2025-01-23 09:39 | Outpatient (AMB) | payer MEDICARE, SELFPAY ==
--- NOTE | 2025-01-23 09:42 | MHC.OFFVISWM ---
VS Expanded 01/23/25 09:43 BP 120/58 L Blood Pressure Location Lt brachial Blood Pressure Position Sitting Pulse 66 Pulse Source Pulse Oximeter Temp 97.0 F Temperature Source Temporal Artery Scan Pulse Oximetry 96 Oxygen Delivery Method Room Air Height 5 ft 2 in Weight 113 lb 12.136 oz BMI 20.8 Intake Visit Reasons: OV Diaphragmatic Hernia 10/16/24 Accompanied by: Spouse Allergies Sulfa (Sulfonamide Antibiotics) Allergy (Intermediate, Verified 01/23/25 09:44) Swollen red eyes cefuroxime Adverse Reaction (Intermediate, Uncoded 01/23/25 09:44) Stomach Upset HPI Comments Details: Patient is a pleasant 73-year-old female who returns to the office today in follow-up. She is 3 months post hiatal hernia repair performed on 10/16/2024. Tolerating a new meal plan as given to her by Dr. Bajwa including: Pakistani yogurt Protein bar Meal with 6 forks protein and 6 forks vegetables Cottage cheese Meal with 6 forks protein and 6 forks vegetables. Denies any significant pain. No complaints of shortness of breath or reflux. She states sucralose upsets her stomach and notices that the protein bar upsets her stomach. She was away for a period of time and did not have her bar and the upset stomach resolved. It is not so much that she can not tolerate the bar, but would prefer not to use it [facility] Medical History Visit for wound check Foreign body alimentary tract Acute GI bleeding Cough Pharyngeal abscess Food allergy Swelling of lymph node Abnormal pharmacologic myocardial perfusion study Lightheadedness Personal history of kidney stones Flank pain Dysuria UTI symptoms Palpitations Postnasal drip Breast cancer screening Sinusitis Abdominal pain SOB (shortness of breath) on exertion Anemia Cardiac pacemaker in situ Paroxysmal atrial fibrillation HTN (hypertension) Cardiomegaly Chronic interstitial lung disease Dizziness GERD (gastroesophageal reflux disease) Atrial fibrillation with rapid ventricular response Atrial fibrillation History of transesophageal echocardiography (ELIGIO) Left atrial dilatation Orthostatic lightheadedness Pain and swelling of left lower leg Exertional dyspnea Swelling of joint of left hand Pain in joint of left hand Overweight (BMI 25.0-29.9) Allergic rhinitis Pure hypercholesterolemia Osteoarthritis Dyslipidemia Vitamin D deficiency Age related osteoporosis Surgical History History of hernia surgery S/P repair of paraesophageal hernia History of permanent cardiac pacemaker placement (~09/01/23) Status post cardiac catheterization History of cardiac cath Hx of cataract removal with insertion of prosthetic lens (~12/2014) Hx of section Family History Mother Prediabetes Hyperlipidemia Hypertension Father No problems noted. Social History Household Members: Spouse Housing: House Do you presently have visiting nurse or other home services: No Alcohol intake: former Patient Tobacco Use Status: Never used Tobacco e-Cigarette/Vaping Use: Never Used Second Hand Smoke Exposure: No service: No Current occupational status: retired Cognitive needs: No Hearing needs: Yes Vision needs: No Physical Exam Vital Signs: Last Vital Signs Temp 97.0 F 01/23/25 09:43 Pulse 66 01/23/25 09:43 BP 120/58 L 01/23/25 09:43 Pulse Ox 96 01/23/25 09:43 Oxygen Delivery Method Room Air 01/23/25 09:43 BMI result Body Mass Index 20.8 Const General: healthy appearing and no acute distress Resp Effort & Inspection: normal respiratory effort Auscultation: clear to auscultation bilaterally Cardio Rate: regular rate Rhythm: regular rhythm GI Auscultation: normal bowel sounds Extrem General: Yes normal to inspection Assessment & Plan Assessment & Plan (1) S/P repair of paraesophageal hernia: Code(s): Z98.890 - Other specified postprocedural states; Z87.19 - Personal history of other diseases of the digestive system Category: Medical Plan: Patient is doing very well 3-1/2 months post hiatal hernia repair. She will discuss with Dr. Bajwa changing her meal plan to exclude the bar. I have given her the recommendation to trial owyn rtd shake (20 gm protein per shake), as this does not have any artificial sweeteners. She will discuss this with Dr. Bajwa. She has no symptoms at this time and is very happy with the results of her surgery.
[2025-01-23 09:43] VITALS: BP 120/58; PULSE 66; TEMP 36.1; O2SAT 96; BMI 20.8
--- OUTSIDE RECORDS SUMMARY | 2025-01-23 09:53 | XMS_ITS | Clinical Summary ---
Author Organization [facility] Address [address] [place] [address] Phone Care Team Providers Care Cap And Hat Production Supervisor Name Role Phone Unavailable Primary Care Provider Unavailabl e Social History Tobacco Use Types Packs/Day Years Used Date Smoking Tobacco: Never Assessed Education Answer Date Recorded Are you interested in more education? Not on blu e 07/31/2023 Are you concerned about learning? Not on file 07/31/2023 No 07/31/2023 No 07/31/2023 Digital Access Answer Date Recorded No 07/31/2023 No 07/31/2023 Reliable internet access at home? Not on file 07/31/2023 Device with a working camera? Not on file Comments Unknown Sex and Gender Information Value Date Recorded Sex Assigned at Not on file Legal Sex Female 1:51 PM EST Gender Identity Not on file Sexual Orientation Not on file Plan of Treatment Not on file Medical Devices Not on file Additional Source Comments The information contained in this document represents components of the legal health record. It is not the complete legal health record.[facility]
--- OUTSIDE RECORDS SUMMARY | 2025-01-23 09:53 | XMS_ITS ---
Author Name [facility] Organization Unknown History of Medication Use Medication Directions Dispensed Refills Start Date End Date Stat iohexol (OMNIPAQUE) 350 mg/mL injection 80 mL 80 mL, Intravenous, Once in imaging, contrast, Starting on Sun12/31/23 at 0944, For 1 dose, Radiology Appointment 12/31/2023 12/31/2023 completed Problems Problem Status Onset Date Problem Type Date of Resoluti on Source Exertional shortness of breath active EncounterDiagnosisAct [facility] Abnormal stress ECG active EncounterDiagnosisAc t [facility] Encounters Encounter Type Encounter Reason Primary Diagnosis Location Date Ambulatory Shortness of breath [email or web address] Care Team Organization Name Specialty Phone Email Start Date End Da te [facility] 12/31/2023 09/17/2024 [facility] 12/17/2023
--- OUTSIDE RECORDS SUMMARY | 2025-01-23 09:53 | XMS_ITS | Patient Health Record ---
Author Organization [facility] Address [address] [place] [phone] Care Team Providers Care Automotive Production Worker Name Role Phone Al Myers Unavailable [phone] Reason For Referral No Information Plan Of Treatment No Information
--- OUTSIDE RECORDS SUMMARY | 2025-01-23 09:53 | XMS_ITS | Data Portability ---
Author Organization [place] [facility], Allergy Address [address] [place] [id number] Care Team Providers Care Mortgage Loan Underwriter Name Role Phone LAISHA IRMA Primary Care Provider [phone] Assessment No assessment recorded. Plan of Treatment [...] Address Organization Details Recorded Time Acute sialoadenitis [id number] Active 2023 KIESHA SAXENA MD [address] [place] [address], [phone], [facility] 06:57:32 Problem Notes None recorded. Procedures Surgical History Date Name Laterality Status Provider Name and Address Organization Details Recorded Time cardiac pacemaker procedure completed KIESHA SAXENA MD [address] [place] [address], [phone], [facility] 06/15/2024 06:55:47 Imaging Results None recorded. [...] Updated DateTime 06/13/2024 157.48 cm 24.8 kg/m2 56673.77 g Veronica Pate [place] - [facility] 06/13/2024 09:38:09 Social History None recorded. Functional Status None recorded. Mental Status None recorded. Family History Nothing Reported. Medical History Condition Response Heart Problems Y Hyperlipidemia Y Gynecological HistoryNo gynecological history recorded. Obstetrics History GPAL:G 0 P 0 0 0 0 Past Encounters Encounter ID Performer Location Encounter Start Date Encounter Closed Date Diagnosis/Indication Diagnosis SNOMED-CT Code Diagnosis ICD10 Code Diagnosis Note [id number] KIESHA SAXENA MD [facility] [address] [phone] 06/13/2024 09:18:56 06/13/2024 15:51:27 Acute sialoadenitis 131226768 K11.21 73-year-ol d female presents today for assessment after being seen in the [place] emergency department for acute left-sided facial swelling. This seemed to be preceded by allergy symptoms. She has been on antibiotic s and feels much improved. She had a CT scan at [facility] [place] showing a 2 cm phlegmon versus abscess in the inferior deep left parotid gland, prominent lingual tonsils. On exam today, I see clear saliva from both Stensen's and Silverpeak's ducts. There is very minimal fullness in [...] [facility] (MEDICARE REPLACEMENT/ ADVANTAGE - PPO) [id number] 1 aYritza Reich [id number] Yaritza Reich Notes Date Note Type Note Provider Name and Address Organization Details Recorded Time 06/13/2024 text/html ROS as noted in the HPI 73 yo F with sialoadenitis. Finishing abx in 3 days, feels much better Initial symptoms included stuffy nose, watery eyes, felt a little tender, went to [facility] [place] walk in, thought allergy related, next morning, then went to ER Has been on flonase for allergies, previously on allergy shots, going to set up repeat testing No trouble swallowing or sore throatNo ear pain once 4 years ago had some swelling on the right, felt like a blockage then went away She had a CT scan at [facility] showing a 2 cm phlegmon versus abscess in the inferior deep left parotid gland, prominent lingual tonsils. KIESHA SAXENA MD [address] [place] [address], [place], [phone], [place] [facility] 06/15/2024 07:00:44 OBGyn Episode No OBEpisode recorded.
--- OUTSIDE RECORDS SUMMARY | 2025-01-23 09:53 | XMS_ITS | Encounter Summary ---
Author Organization [facility] Address [address] [place] [address] Care Team Providers Care Gang Tailer Name Role Phone Unknown Primary Care Provider Encounter Details Date Type Department Care Team (Late st Contact Info) Description 12/31/2023 Scanned Document [address] [place] [phone] Radiology, Scan Social History Tobacco Use [...] on filedocumented in this encounter Care Teams Gang Tailer Relationship Specialty Start Date End Date Unknown Unknow Provider Address PCP - General 12/17/23 documented as of this encounter
== END 2025-01-23 10:25 | disposition home or self-care (01) ==
LOC: HO.HBS 09:40
PROVIDERS: PCP Internal Medicine; Visit Provider Physician Assistant Surgical
DX: Z71.3 Dietary counseling and surveillance (principal); Z98.890 Other specified postprocedural states; Z87.19 Personal history of other diseases of the digestive system
CPT/HCPCS: 99213

== ENCOUNTER → 2025-01-23 09:39 | Outpatient (BNVA) | payer MEDICARE, SELFPAY | PROVIDERS: PCP Internal Medicine; Visit Provider Physician Assistant Surgical | DX: K44.9 Diaphragmatic hernia without obstruction or gangrene (principal); Z87.19 Personal history of other diseases of the digestive system; Z98.890 Other specified postprocedural states | CPT/HCPCS: 99212 ==

== ENCOUNTER 2025-02-24 07:23 | Outpatient (REF) | payer MEDICARE, SELFPAY ==
--- OUTSIDE RECORDS SUMMARY | 2025-02-24 07:27 | XMS_ITS | Encounter Summary ---
Author Organization [facility] Address [address] [place] [address] Care Team Providers Care Taximeter Repairer Name Role Phone Unknown Primary Care Provider [phone] Encounter Details Date Type Department Care Team (Late st Contact Info) Description 12/31/2023 Scanned Document [address] [place] [phone] Radiology, Scan Social History Tobacco Use [...] on filedocumented in this encounter Care Teams Taximeter Repairer Relationship Specialty Start Date End Date Unknown Unknow Provider Address PCP - General 12/17/23 documented as of this encounter
--- OUTSIDE RECORDS SUMMARY | 2025-02-24 07:27 | XMS_ITS | Clinical Summary ---
Author Organization [facility] Address [address] [place] [phone] Phone Care Team Providers Care Business Economist Name Role Phone Unavailable Primary Care Provider [...] It is not the complete legal health record.[facility]
--- OUTSIDE RECORDS SUMMARY | 2025-02-24 07:28 | XMS_ITS | Clinical Summary ---
Author Organization [facility] Address [address] [place] [address] Care Team Providers Care Checker Name Role Phone Unknown Primary Care Provider [phone] Allergies No known active allergies Social History [...] 1950 DTaP/Tdap/Td Vaccines (1 - Tdap) 12/09/1967 Pneumococcal Vaccines 50+ (1 of 1 - PCV) 1998 Zoster (Shingles) Vaccine (1 of 2) 1998 DXA Bone Density (Females,Ages 65 and older) 2013 RSV Vaccine 60 years and older and Patients (1 - 1-dose 75+ series) 12/09/2023 COVID-19 Vaccine (3 - 2023-2 5 season) 2024 09/26/2020, 08/29/2020 Influenza Vaccine 01/30/2025 Hepatitis B Vaccines Aged Out No long er eligible based on patient's age to complete this topic Insurance [employer] MED[employer]ARE Care Teams Checker Relationship Specialty Start Date End Date Unknown Unknow Provider Address PCP - General 12/17/23
--- OUTSIDE RECORDS SUMMARY | 2025-02-24 07:28 | XMS_ITS | Patient Health Record ---
Author Organization [facility] Address [address] [place] [phone] Care Team Providers Care Electronic Equipment Repairer Name Role Phone Al Myers Unavailable [phone] Reason For Referral No Information Plan Of Treatment No Information
[2025-02-24 10:11] LABS: Hematocrit 36.0 % (37.0-47.0); Hemoglobin 12.4 g/dl (12.0-16.0); Mean Corpuscular HGB Conc 34.4 g/dl (31.0-35.0); Mean Corpuscular Hemoglobin 30.7 pg (27.0-33.0); Mean Corpuscular Volume 89.1 fL (80.0-98.0); NRBC Abs Auto 0.000 X10*3/uL (0.0-0.012); NRBC Pct Auto 0.0 /100WBC (0.0-0.2); Platelet Count 268 X10*3/uL (160-400); Red Blood Count 4.04 X10*6/uL (4.20-5.50); White Blood Count 6.2 X10*3/uL (4.8-10.8)
[2025-02-24 10:26] LABS: Anion Gap 12 (12-20); Blood Urea Nitrogen 16 mg/dL (9-16); Calcium 9.1 mg/dL (8.4-10.2); Carbon Dioxide 25 mmol/L (22-29); Chloride 107 mmol/L (96-108); Cholesterol 154 mg/dL (<200); Estimated Glomerular Filt Rate 59; HDL Cholesterol 77 mg/dL (>40); Potassium 4.0 mmol/L (3.3-5.1); Sodium 140 mmol/L (135-145); Triglycerides 59 mg/dL (<150)
== END 2025-02-24 07:24 | disposition home or self-care (01) ==
LOC: HO.HMGCLDS 07:23
PROVIDERS: PCP Internal Medicine; Visit Provider Internal Medicine Cardiovascular Disease
DX: I48.0 Paroxysmal atrial fibrillation (principal); I25.10 Atherosclerotic heart disease of native coronary artery without angina pectoris
CPT/HCPCS: 36415; 80048; 80061; 85027

== ENCOUNTER 2025-03-19 07:31 | Outpatient (REF) | payer MEDICARE, SELFPAY ==
--- OUTSIDE RECORDS SUMMARY | 2025-03-19 07:35 | XMS_ITS | Clinical Summary ---
Author Organization [facility] Address [address] [place] [address] Care Team Providers Care Chain Person Name Role Phone Unknown Primary Care Provider [phone] Allergies No known active allergies Social History [...] Health Maintenance Due Date Last Done Comments Advance Care Planning 1950 Hepatitis C Virus Screening 1950 DTaP/Tdap/Td Vaccines (1 - Tdap) 12/09/1967 Pneumococcal Vaccines 50+ (1 of 1 - PCV) 1998 Zoster (Shingles) Vaccine (1 of 2) 1998 DXA Bone Density (Females,Ages 65 and older) 2013 RSV Vaccine 60 years and older and Patients (1 - 1-dose 75+ series) 12/09/2023 Influenza Vaccine 01/30/2025 COVID-19 Vaccine ( - 2024-2 6 season) 2025 09/26/2020, 08/29/2020 Hepatitis B Vaccines Aged Out No long er eligible based on patient's age to complete this topic Insurance [employer] MED[employer] Care Teams Chain Person Relationship Specialty Start Date End Date Unknown Unknow Provider Address PCP - General 12/17/23
--- OUTSIDE RECORDS SUMMARY | 2025-03-19 07:35 | XMS_ITS | Encounter Summary ---
Author Organization [facility] Address [address] [place] [address] Care Team Providers Care Arboriculture Instructor Name Role Phone Unknown Primary Care Provider Encounter Details Date Type Department Care Team (Late st Contact Info) Description 12/31/2023 Scanned Document [address] [place] [phone] Radiology, Scan Social History Tobacco Use [...] on filedocumented in this encounter Care Teams Arboriculture Instructor Relationship Specialty Start Date End Date Unknown Unknow Provider Address PCP - General 12/17/23 documented as of this encounter
--- OUTSIDE RECORDS SUMMARY | 2025-03-19 07:35 | XMS_ITS | Patient Health Record ---
Author Organization [facility] Address [address] [place] [phone] Care Team Providers Care Product Lead Name Role Phone Al Myers Unavailable [phone] Reason For Referral No Information Plan Of Treatment No Information
--- OUTSIDE RECORDS SUMMARY | 2025-03-19 07:35 | XMS_ITS | Clinical Summary ---
Author Organization [facility] Address [address] [place] [phone] Phone Care Team Providers Care Bindery Operator Name Role Phone Unavailable Primary Care Provider [...] It is not the complete legal health record.[facility]
[2025-03-19 10:14] LABS: MANUAL DIFF FLAG NO
[2025-03-19 10:25] LABS: Hematocrit 35.4 % (37.0-47.0); Hemoglobin 12.2 g/dl (12.0-16.0); Imm Gran Abs Auto 0.01 X10*3/uL (0.00-0.03); Imm Gran Pct Auto 0.2 % (0.0-0.4); Lymphocytes Absolute Auto 1.5 X10*3/uL (1.2-4.9); Mean Corpuscular HGB Conc 34.5 g/dl (31.0-35.0); Mean Corpuscular Hemoglobin 30.8 pg (27.0-33.0); Mean Corpuscular Volume 89.4 fL (80.0-98.0); NRBC Abs Auto 0.000 X10*3/uL (0.0-0.012); NRBC Pct Auto 0.0 /100WBC (0.0-0.2); Platelet Count 247 X10*3/uL (160-400); Red Blood Count 3.96 X10*6/uL (4.20-5.50); White Blood Count 5.4 X10*3/uL (4.8-10.8)
[2025-03-19 10:52] LABS: Alanine Aminotransferase 15 U/L (0-31); Albumin Level 4.2 g/dL (3.5-5.0); Alkaline Phosphatase 72 U/L (39-117); Anion Gap 8 (12-20); Aspartate Amino Transferase 27 U/L (5-31); Blood Urea Nitrogen 13 mg/dL (9-16); Calcium 9.0 mg/dL (8.4-10.2); Carbon Dioxide 27 mmol/L (22-29); Chloride 112 mmol/L (96-108); Cholesterol 158 mg/dL (<200); Estimated Glomerular Filt Rate > 60; HDL Cholesterol 85 mg/dL (>40); Iron 92 mcg/dL (30-160); Percent Iron Saturation 28 % (15-50); Potassium 4.0 mmol/L (3.3-5.1); Sodium 143 mmol/L (135-145); Total Iron Binding Capacity 323 mcg/dL (228-428); Total Protein 6.7 g/dL (6.5-8.0); Triglycerides 59 mg/dL (<150); Unsaturated Iron Binding 231 ug/dL
[2025-03-19 10:59] LABS: Ferritin 24 ng/mL (10-250)
[2025-03-19 11:09] LABS: Folate 10.7 ng/mL (> or = 4.0); Vitamin B12 783 pg/mL (200-900)
[2025-03-19 11:39] LABS: Appearance Urine Clear; Glucose Urine UA Negative (Negative); PH 6.5 (5.0-9.0); Specific Gravity - Urine 1.015 (1.005-1.025); UMIC TRIGGER UACC YES
[2025-03-19 11:52] LABS: UACC Culture Trigger YES
== END 2025-03-19 07:32 | disposition home or self-care (01) ==
LOC: HO.HMGCLDS 07:31
PROVIDERS: PCP Internal Medicine; Referring Provider Surgery; Visit Provider Internal Medicine
DX: K91.2 Postsurgical malabsorption, not elsewhere classified (principal); E78.00 Pure hypercholesterolemia, unspecified; D64.9 Anemia, unspecified; Z90.3 Acquired absence of stomach [part of]
CPT/HCPCS: 36415; 80053; 80061; 81001; 82306; 82607; 82728; 82746; 83540; 84425; 84590; 84630; 85025; 87086

== ENCOUNTER 2025-03-24 15:23 | Outpatient (AMB) | payer MEDICARE, SELFPAY ==
--- NOTE | 2025-03-24 15:28 | A.OFFPC_ITS ---
Vital Signs 03/24/25 15:29 Height 5 ft 2 in Weight 117 lb 6 oz BMI 21.5 BP 120/74 Blood Pressure Location Lt brachial Position Sitting Pulse 68 Pulse Source Pulse Oximeter Temp 97.8 F Temp Source Temporal Artery Scan Pulse Oximetry (%) 98 Oxygen Delivery Method Room Air Intake Visit Reasons: PE- see comments Flyer Maker Required: No Accompanied by: Self / Same As Patient Allergies Sulfa (Sulfonamide Antibiotics) Allergy (Intermediate, Verified 03/30/25 00:29) Swollen red eyes cefuroxime Adverse Reaction (Intermediate, Uncoded 03/30/25 00:29) Stomach Upset Medication List - Last Reconciled 03/30/25 by Bernabe Peterson MD apixaban (Eliquis) 5 mg PO BID cholecalciferol (vitamin D3) 50 mcg PO DAILY@1900 fluticasone propionate 50 mcg/actuation 1 spray intranasal DAILY PRN Multaq (dronedarone) 400 mg PO BID NS rosuvastatin (Crestor) 40 mg PO DAILY zinc gluconate 10 mg PO DAILY Tobacco use date assessed: 03/24/25 Fall risk assessment: No Falls in past year Last assessed Fall Risk: 03/24/25 Dental Screening Dental Screen Date: 03/24/25 Did you have a dental visit in the last 12 months?: No Did you have a dental problem in the last 6 months where you did not have access to dental care?: No HPI PE- see comments HPI Details Patient comes in today for her annual physical examination - I have not personally seen patient since 06/12/2024 States that she feels okay She underwent surgical repair of her hiatal hernia back in September 2024 - states that her surgery went well and she has been feeling a lot better with no recurrence of her previous symptoms since her hernia repair surgery She denies any headaches or dizziness Denies any chest pains, no increased shortness of breath No nausea/vomiting, no abdominal pain No change in bowel habits noted She denies any acute urinary symptoms She had her follow-up labs done last week - to discuss her results She had her colonoscopy last done with Her son back in August 2024 and was advised that she does not need any further repeat colonoscopy in the future given her age At her age, she also no longer needs to keep up with her annual mammogram and yearly gynecology exam and Pap smears PFSH Medical History (Updated 03/30/25 @ 01:44 by Bernabe Peterson MD) Visit for wound check Foreign body alimentary tract Acute GI bleeding Cough Pharyngeal abscess Food allergy Swelling of lymph node Abnormal pharmacologic myocardial perfusion study Lightheadedness Personal history of kidney stones Flank pain Dysuria UTI symptoms Palpitations Postnasal drip Breast cancer screening Sinusitis Abdominal pain SOB (shortness of breath) on exertion Anemia Cardiac pacemaker in situ Paroxysmal atrial fibrillation HTN (hypertension) Cardiomegaly Chronic interstitial lung disease Dizziness GERD (gastroesophageal reflux disease) Atrial fibrillation with rapid ventricular response Atrial fibrillation History of transesophageal echocardiography (ELIGIO) Left atrial dilatation Orthostatic lightheadedness Pain and swelling of left lower leg Exertional dyspnea Swelling of joint of left hand Pain in joint of left hand Overweight (BMI 25.0-29.9) Allergic rhinitis Pure hypercholesterolemia Osteoarthritis Dyslipidemia Vitamin D deficiency Age related osteoporosis Surgical History (Updated 03/24/25 @ 16:06 by Bernabe Peterson MD) History of colonoscopy History of hernia surgery S/P repair of paraesophageal hernia History of permanent cardiac pacemaker placement (~09/01/23) Status post cardiac catheterization History of cardiac cath Hx of cataract removal with insertion of prosthetic lens (~12/2014) Hx of section Family History Mother Prediabetes Hyperlipidemia Hypertension Father No problems noted. Social History Household Members: Spouse Housing: House Do you presently have visiting nurse or other home services: No Alcohol intake: former Patient Tobacco Use Status: Never used Tobacco e-Cigarette/Vaping Use: Never Used Second Hand Smoke Exposure: No service: No Current occupational status: retired Cognitive needs: No Hearing needs: Yes Vision needs: No Questionnaire PHQ-9 Over the last 2 weeks, how often have you been bothered by any of the following problems? 1. Little interest or pleasure in doing things: not at all 2. Feeling down, depressed, or hopeless: not at all 3. Trouble falling or staying asleep, or sleeping too much: not at all 4. Feeling tired or having little energy: not at all 5. Poor appetite or overeating: not at all 6. Feeling bad about yourself - or that you are a failure or have let yourself or your family down: not at all 7. Trouble concentrating on things, such as reading the newspaper or watching television: not at all 8. Moving or speaking so slowly that other people could have noticed. Or the opposite - being so fidgety or restless that you have been moving around a lot more than usual: not at all 9. Thoughts that you would be better off or of hurting yourself in some way: not at all Total score: 0 Depression Screening Interpretation: Negative Depression Screening Done: Yes 00579 - PHQ-9 Billing: Yes Source: Developed by Drs. Al Amato, Nathaly Allison, Yvan Wu and colleagues, with an educational mindy from [employer]. Thrive Questionnaire Date Thrive assessed: 03/24/25 I am a: Patient What is your living situation today?: I have a steady place to live Within the past 12 months, did the food you bought not last and you didn't have the money to get more?: Never true Within the past 12 months, did you worry whether your food would run out before you got money to buy more?: Never true Do you have trouble paying for medicines?: No Do you have trouble getting transportation to medical appointments?: No Do you have trouble paying your heating and electricity bill?: No Do you have trouble taking care of your child, family member or friend?: No Do you have trouble with day-to-day activities such as bathing, preparing meals, shopping, managing finances, etc.?: No Are you currently unemployed and looking for a job?: No Are you interested in more education?: No Please select the resources that you would like help with: None Currently or been in a relationship where the following occur: No concerns reported THRIVE Score: 0 AUDIT C Alcohol Use Questionnaire (AUDIT-C) 1. How often do you have a drink containing alcohol?: Monthly or less 2. How many drinks containing alcohol do you have on a typical day when you are drinking?: 1 or 2 3. How often do you have six or more drinks on one occasion?: Less than monthly Total Score: 2 Score Reviewed/Action Taken: Yes KEYON-7 AMB Questionnaire KEYON-7 Date KEYON - 7 assessed: 03/24/25 Feeling nervous, anxious, or on edge: 0 = Not at all Not being able to stop or control worryin = Not at all Worrying too much about different things: 0 = Not at all Trouble relaxin = Not at all Being so restless that it is hard to sit still: 0 = Not at all Becoming easily annoyed or irritable: 1 = Several days Feeling afraid as if something awful might happen: 1 = Several days Total KEYON-7 score (0-4 normal; 5-9 mild; 10-14 moderate; 15-21 severe): 2 Source: Developed by Drs. Al Amato, Nathaly Allison, Yvan Wu and colleagues, with an educational mindy from [employer]. Review of Systems Const Denies chills, Denies fatigue, Denies fever(s), Denies headache(s) and Denies malaise Eyes Denies blurry vision, Denies change in vision, Denies irritation and Denies itchy eyes ENT Denies dysphagia, Denies dizziness, Denies otalgia, Denies headache(s), Denies nasal congestion, Denies neck pain, Denies odynophagia, Denies sinus pain and Denies sore throat Card Denies chest pain, Denies rapid heart rate, Denies irregular heart rhythm, Denies palpitations and Denies dyspnea Resp Denies chest congestion, Denies cough, Denies dyspnea and Denies wheezing GI Denies abdominal pain, Denies bloating, Denies constipation, Denies dysphagia, Denies heartburn, Denies diarrhea, Denies nausea, Denies odynophagia and Denies vomiting Denies hematuria, Denies urinary frequency, Denies dysuria, Denies urinary incontinence and Denies urinary urgency Musc Denies back pain, Denies arthralgias, Denies joint swelling, Denies muscle weakness and Denies neck pain Skin/Breast Denies breast pain, Denies breast mass, Denies change in pigmentation, Denies lesions, Denies rash and Denies unusual bruising Neuro Denies dizziness, Denies headache(s) and Denies paresthesias Psych Denies anxiety and Denies depression Endo Denies fatigue and Denies palpitations Adelso/Lymph Denies easy bruising Aller/Immun Denies itchy eyes and Denies wheezing Physical exam (Primary Care) Vital Signs: Last Vital Signs Temp 97.8 F 03/24/25 15:29 Pulse 68 09/23/25 15:29 BP 120/74 03/24/25 15:29 Pulse Ox 98 03/24/25 15:29 Oxygen Delivery Method Room Air 03/24/25 15:29 BMI result Body Mass Index 21.5 Tobacco/Smoking Status: Tobacco use Status Tobacco use date assessed 03/24/25 03/24/25 15:36 Patient Tobacco Use Status Never used Tobacco 03/24/25 15:28 e-Cigarette/Vaping Use Never Used 03/24/25 15:28 PHQ-9: PHQ-9 Score PHQ-9: Total score 0 03/24/25 16:09 Depression Screening Interpretation: Negative Thrive Assessment: Date of Thrive Assessment Date Thrive assessed 03/24/25 03/24/25 15:36 Currently or been in a relationship where the following occur: No concerns reported Const General: no acute distress, alert and awake Orientation/consciousness: patient oriented x3 HENMT Head: Yes normocephalic and Yes atraumatic Ears: external ears normal, TM's normal bilaterally and EAC's normal General nose exam: No nasal discharge present Face and sinus: Yes normal facial exam and Yes sinuses nontender Teeth and gingiva: dentition normal Throat: Yes posterior oropharynx normal and Yes tonsils normal (no TP congestion) Eyes Eyelids: Yes eyelids normal Conjunctivae: conjunctivae normal Pupils: Equal, round and reactive pupils present EOM: EOMs intact bilaterally Neck Neck: Yes no lymphadenopathy and Yes supple Thyroid: Thyroid normal Resp Auscultation: clear to auscultation bilaterally, no rales and no wheezes Cardio Rate: regular rate Rhythm: regular rhythm Heart sounds: no murmurs GI Palpation (GI): Soft to palpation, nontender and No hepatosplenomegaly present Auscultation: normal bowel sounds General: Yes no CVA tenderness Back/Spine/Pelvis Back: no CVA tenderness Thoracic/Lumbar Spine: thoracic and lumbar spine normal to inspection Skin Lesions: no lesions Rashes: no rashes Neuro General: patient oriented x3, moves all extremities, no focal motor deficits and CN's II-XI intact bilaterally Cranial nerves: Yes Equal, round and reactive pupils present Cognition (Neuro): normal cognition Gait exam (Neuro): Normal gait present Extrem General: Yes no clubbing, cyanosis or edema Results Reviewed Results Reviewed: Laboratory Tests 03/19/25 07:50 WBC 5.4 Hgb 12.2 Hct 35.4 L Plt Count 247 Sodium 143 Potassium 4.0 Creatinine 0.75 Estimated GFR > 60 Fasting Glucose 96 Calcium 9.0 AST 27 ALT 15 Triglycerides 59 Cholesterol 158 LDL Cholesterol, Calc 62 HDL Cholesterol 85 Vitamin B12 783 25-OH Vitamin D Total 46.1 Ur Specific [place] 1.015 Urine Protein 30 (1+) H Urine Glucose (UA) Negative Urine Blood Trace H Urine Nitrite Negative Ur Leukocyte Esterase Small (1+) H Coding Level of Care Code Est Pt Prev Care >65y(40956) Diagnoses Annual physical exam Z00.00 Atherosclerotic cardiovascular disease I25.10 Sick sinus syndrome I49.5 Paroxysmal atrial fibrillation I48.0 Pure hypercholesterolemia E78.00 Gastroesophageal reflux disease without esophagitis K21.9 Esophagitis presence: without esophagitis Age-related osteoporosis without current pathological fracture M81.0 Presence of current pathological fracture: without current pathological fracture Vitamin D deficiency E55.9 Allergic rhinitis, unspecified seasonality, unspecified trigger J30.9 Allergic rhinitis trigger: unspecified Allergic rhinitis seasonality: unspecified Additional Codes PHQ-9 - 99123 - PHQ-9 Billing: Yes ([id number]) Assessment & Plan Assessment & Plan (1) Annual physical exam: Code(s): Z00.00 - Encounter for general adult medical examination without abnormal findings Category: Medical Plan: Results of her labs done ;ast week reviewed and discussed with patient She had her colonoscopy last done with Her son back in August 2024 and was advised that she does not need any further repeat colonoscopy in the future given her age At her age, she also no longer needs to keep up with her annual mammogram and yearly gynecology exam and Pap smears (2) Atherosclerotic cardiovascular disease: Code(s): I25.10 - Atherosclerotic heart disease of [place] coronary artery without angina pectoris Category: Medical Plan: Her myocardial perfusion study done on 12/03/2023 revealed (+) equivocal findings for anterior and mild intensity apical ischemia in the LAD territory, with (+) transient ischemic dilatation noted. Gated LVEF is at 63% Patient had a coronary CTA done at [facility] on 12/31/2023 - she had a coronary CT score of 563, with findings of two-vessel disease with moderate to severe plaque stenosis She currently does not have any concerning signs and symptoms and has been advised by cardiology to continue with medical management and aggressive risk reduction and only if she develops any limiting episodes of exertional chest discomfort and/or shortness of breath will cardiology pursue invasive cardiac catheterization (3) Sick sinus syndrome: Code(s): I49.5 - Sick sinus syndrome Category: Medical Plan: Patient developed AF with RVR back at the end of July 2023 and presented to the ER with symptoms of persistent palpitations She underwent ELIGIO with cardioversion successfully and has been predominantly bradycardic since She was scheduled for outpatient pacemaker insertion in early August 2023 but ended up going back to the ER that weekend for 2 separate episodes of chest pressure, nausea and diaphoresis She was admitted and ended up getting a dual chamber pacemaker insertion ahead of time on 09/01/2023 States that she has been feeling okay since with no recurrence of her chest pains/pressure or her previous symptoms of palpitations since (4) Paroxysmal atrial fibrillation: Code(s): I48.0 - Paroxysmal atrial fibrillation Category: Medical Plan: Continue Eliquis 5 mg BID for thromboembolism prophylaxis (CHADS VAsc score of 2) and Metoprolol 50 mg BID Her Fleicanide 50 mg Q 12 hours was discontinued due to her recent abnormal stress test and she was started instead on Multaq 400 mg BID and has been doing well on Multaq since Follow up with cardiology as scheduled (5) Pure hypercholesterolemia: Code(s): E78.00 - Pure hypercholesterolemia, unspecified Category: Medical Plan: Reinforce low-cholesterol diet Continue Rosuvastatin 40 mg QD Will recheck her labs and fasting lipids in 4 months for follow-up (6) GERD (gastroesophageal reflux disease): Code(s): K21.9 - Gastro-esophageal reflux disease without esophagitis Category: Medical Qualifiers: Esophagitis presence: without esophagitis Qualified Code(s): K21.9 - Gastro-esophageal reflux disease without esophagitis Plan: Her upper GI series done back in 2020 revealed (+) acid reflux as well as a hiatal hernia Reinforced dietary restrictions in GERD She was started on Pantoprazole 40 mg QD a few months ago but she recently stopped taking this when she developed diarrhea States that her symptoms have mostly subsided and she does not wish to be started on any other medications at this time (7) Age related osteoporosis: Code(s): M81.0 - Age-related osteoporosis without current pathological fracture Category: Medical Qualifiers: Presence of current pathological fracture: without current pathological fracture Qualified Code(s): M81.0 - Age-related osteoporosis without current pathological fracture Plan: Her most recent BMD done on 02/07/2022 showed no significant change in BMD from her previous one done in 2019; lowest T-score was at -3.0 in the lumbar spine Patient continues to decline pharmacotherapy -? feels that she is healthy and active and prefers not to take any additional medications at this time She was referred to and seen by endocrinology over the past few months and was advised that they do not need to see her regularly if she does not wish to pursue pharmacotherapy Continue Vitamin D and calcium supplements daily and patient is again reminded to exercise regularly Reinforced fall precautions at all times (8) Vitamin D deficiency: Code(s): E55.9 - Vitamin D deficiency, unspecified Category: Medical Plan: Continue Vitamin D3 2000 units QD (9) Allergic rhinitis: Comment: Very mild, seasonal, controlled . Code(s): J30.9 - Allergic rhinitis, unspecified Category: Medical Qualifiers: Allergic rhinitis trigger: unspecified Allergic rhinitis seasonality: unspecified Qualified Code(s): J30.9 - Allergic rhinitis, unspecified Plan: Continue Fluticasone nasal spray and/or OTC antihistamines like Loratadine 10 mg QD PRN for symptomatic relief Follow up with stopping builder as scheduled Plan Follow up in 4 months Orders: Orders Complete Blood Count Auto Diff 4 Months D64.9 - Anemia, unspecified Comprehensive [place]. Panel Fast 4 Months E78.00 - Pure hypercholesterolemia, unspecified Lipid Panel 4 Months E78.00 - Pure hypercholesterolemia, unspecified
[2025-03-24 15:29] VITALS: BP 120/74; PULSE 68; TEMP 36.6; O2SAT 98; BMI 21.5
--- OUTSIDE RECORDS SUMMARY | 2025-03-24 18:17 | XMS_ITS | Encounter Summary ---
Author Organization [facility] Address [address] [place] [address] Care Team Providers Care Freight Car Loader Name Role Phone Unknown Primary Care Provider Encounter Details Date Type Department Care Team (Late st Contact Info) Description 12/31/2023 Scanned Document [address] [place] [id number] Radiology, Scan Social History Tobacco Use [...] on filedocumented in this encounter Care Teams Freight Car Loader Relationship Specialty Start Date End Date Unknown Unknow Provider Address PCP - General 12/17/23 documented as of this encounter
--- OUTSIDE RECORDS SUMMARY | 2025-03-24 18:17 | XMS_ITS | Patient Health Record ---
Author Organization [facility] Address [address] [place] [id number] Care Team Providers Care Court Recorder Name Role Phone Al Myers Unavailable [phone] Reason For Referral No Information Plan Of Treatment No Information
--- OUTSIDE RECORDS SUMMARY | 2025-03-24 18:17 | XMS_ITS | Clinical Summary ---
Author Organization [facility] Address [address] [place] [address] Care Team Providers Care Food Product Inspector Name Role Phone Unknown Primary Care Provider [phone] Allergies No known active allergies Social History [...] [facility] [place] [facility] MEDIC[employer] Care Teams Food Product Inspector Relationship Specialty Start Date End Date Unknown Unknow Provider Address PCP - General 12/17/23
--- OUTSIDE RECORDS SUMMARY | 2025-03-24 18:17 | XMS_ITS | Clinical Summary ---
Author Organization [facility] Address [address] [place] [id number] Phone Care Team Providers Care Body Rolling Machine Tender Name Role Phone Unavailable Primary Care Provider [...] It is not the complete legal health record.[facility]
== END 2025-03-24 16:15 | disposition home or self-care (01) ==
LOC: HO.HMCH 15:23
PROVIDERS: PCP Internal Medicine; Visit Provider Internal Medicine
DX: Z00.00 Encounter for general adult medical examination without abnormal findings (principal); I25.10 Atherosclerotic heart disease of native coronary artery without angina pectoris; I49.5 Sick sinus syndrome; I48.0 Paroxysmal atrial fibrillation; E78.00 Pure hypercholesterolemia, unspecified; K21.9 Gastro-esophageal reflux disease without esophagitis; M81.0 Age-related osteoporosis without current pathological fracture; E55.9 Vitamin D deficiency, unspecified; J30.9 Allergic rhinitis, unspecified

== ENCOUNTER → 2025-03-24 15:23 | Outpatient (BNVA) | payer MEDICARE, SELFPAY | PROVIDERS: PCP Internal Medicine; Visit Provider Internal Medicine | DX: Z00.00 Encounter for general adult medical examination without abnormal findings (principal); I25.10 Atherosclerotic heart disease of native coronary artery without angina pectoris; I49.5 Sick sinus syndrome; I48.0 Paroxysmal atrial fibrillation; E78.00 Pure hypercholesterolemia, unspecified; K21.9 Gastro-esophageal reflux disease without esophagitis; M81.0 Age-related osteoporosis without current pathological fracture; E55.9 Vitamin D deficiency, unspecified; J30.9 Allergic rhinitis, unspecified; D64.9 Anemia, unspecified | CPT/HCPCS: 96127; 99397 ==

== ENCOUNTER → 2025-04-07 23:59 | Outpatient (BNV) | payer MEDICARE, SELFPAY ==
--- NOTE | 2025-04-15 10:14 | MHC.OFFVIS ---
Intake Visit Reasons: Remote device check- [facility] Allergies Sulfa (Sulfonamide Antibiotics) Allergy (Intermediate, Verified 03/30/25 00:29) Swollen red eyes cefuroxime Adverse Reaction (Intermediate, Uncoded 03/30/25 00:29) Stomach Upset PFSH Medical History (Updated 03/30/25 @ 01:44 by Bernabe Peterson MD) Visit for wound check Foreign body alimentary tract Acute GI bleeding Cough Pharyngeal abscess Food allergy Swelling of lymph node Abnormal pharmacologic myocardial perfusion study Lightheadedness Personal history of kidney stones Flank pain Dysuria UTI symptoms Palpitations Postnasal drip Breast cancer screening Sinusitis Abdominal pain SOB (shortness of breath) on exertion Anemia Cardiac pacemaker in situ Paroxysmal atrial fibrillation HTN (hypertension) Cardiomegaly Chronic interstitial lung disease Dizziness GERD (gastroesophageal reflux disease) Atrial fibrillation with rapid ventricular response Atrial fibrillation History of transesophageal echocardiography (ELIGIO) Left atrial dilatation Orthostatic lightheadedness Pain and swelling of left lower leg Exertional dyspnea Swelling of joint of left hand Pain in joint of left hand Overweight (BMI 25.0-29.9) Allergic rhinitis Pure hypercholesterolemia Osteoarthritis Dyslipidemia Vitamin D deficiency Age related osteoporosis Surgical History (Updated 03/24/25 @ 16:06 by Bernabe Peterson MD) History of colonoscopy History of hernia surgery S/P repair of paraesophageal hernia History of permanent cardiac pacemaker placement (~09/01/23) Status post cardiac catheterization History of cardiac cath Hx of cataract removal with insertion of prosthetic lens (~12/2014) Hx of section Family History Mother Prediabetes Hyperlipidemia Hypertension Father No problems noted. Social History Household Members: Spouse Housing: House Do you presently have visiting nurse or other home services: No Alcohol intake: former Patient Tobacco Use Status: Never used Tobacco e-Cigarette/Vaping Use: Never Used Second Hand Smoke Exposure: No service: No Current occupational status: retired Cognitive needs: No Hearing needs: Yes Vision needs: No Office Procedures Cardiac Device Check Cardiac Device Check Details: Remote pacemaker report generated 04/07/2025. Pacemaker function is adequate. No episodes of atrial fibrillation noted [id number] Cardiac Device Interrogation, pacemaker Procedure code (CPT) selection complete Assessment & Plan Assessment & Plan (1) Cardiac pacemaker in situ: Code(s): Z95.0 - Presence of cardiac pacemaker Category: Medical Plan: See above Coding Level of Care Code Procedure Only Diagnoses Cardiac pacemaker in situ Z95.0 CPT Codes Cardiac Device Check - Cardiac Device 12: [id number] Cardiac Device Interrogation, pacemaker ([id number])
== END ==
PROVIDERS: PCP Internal Medicine; Visit Provider Internal Medicine Cardiovascular Disease
DX: Z45.018 Encounter for adjustment and management of other part of cardiac pacemaker (principal)
CPT/HCPCS: 93294

== ENCOUNTER 2025-05-20 10:26 | Outpatient (AMB) | payer MEDICARE, SELFPAY ==
--- NOTE | 2025-05-20 10:41 | MHC.OFFVIS ---
Vital Signs 05/20/25 10:42 Weight 119 lb 7.849 oz BP 112/58 L Blood Pressure Location Lt brachial Position Sitting Pulse 60 Pulse Source Monitor Intake Visit Reasons: 6 mth w/ ekg and pacer ck Intake Note: 6 m / F/u w ekg pacer check [facility] [employer] Required: No Accompanied by: Spouse Allergies Sulfa (Sulfonamide Antibiotics) Allergy (Intermediate, Verified 05/20/25 10:44) Swollen red eyes cefuroxime Adverse Reaction (Intermediate, Uncoded 03/30/25 00:29) Stomach Upset Medication List - Last Reconciled 05/20/25 by Tomer Morales MD apixaban (Eliquis) 5 mg PO BID cholecalciferol (vitamin D3) 50 mcg PO DAILY@1900 fluticasone propionate 50 mcg/actuation 1 spray intranasal DAILY PRN Multaq (dronedarone) 400 mg PO BID NS rosuvastatin (Crestor) 40 mg PO DAILY zinc gluconate 10 mg PO DAILY HPI Comments Details: Yaritza comes for follow-up. She has been overall doing well from cardiac perspective although she says that when she is particularly not drinking well she does get symptoms of lightheadedness. Blood pressure recorded sometimes on the lower side.. She also says that when she drinks adequately water, she has no lightheadedness. She denies any prolonged palpitation irregular heartbeat. No chest pain, shortness of breath, orthopnea, PND. No bleeding issues or neurologic events. [facility] Medical History Visit for wound check Foreign body alimentary tract Acute GI bleeding Cough Pharyngeal abscess Food allergy Swelling of lymph node Abnormal pharmacologic myocardial perfusion study Lightheadedness Personal history of kidney stones Flank pain Dysuria UTI symptoms Palpitations Postnasal drip Breast cancer screening Sinusitis Abdominal pain SOB (shortness of breath) on exertion Anemia Cardiac pacemaker in situ Paroxysmal atrial fibrillation HTN (hypertension) Cardiomegaly Chronic interstitial lung disease Dizziness GERD (gastroesophageal reflux disease) Atrial fibrillation with rapid ventricular response Atrial fibrillation History of transesophageal echocardiography (ELIGIO) Left atrial dilatation Orthostatic lightheadedness Pain and swelling of left lower leg Exertional dyspnea Swelling of joint of left hand Pain in joint of left hand Overweight (BMI 25.0-29.9) Allergic rhinitis Pure hypercholesterolemia Osteoarthritis Dyslipidemia Vitamin D deficiency Age related osteoporosis Surgical History History of colonoscopy History of hernia surgery S/P repair of paraesophageal hernia History of permanent cardiac pacemaker placement (~09/01/23) Status post cardiac catheterization History of cardiac cath Hx of cataract removal with insertion of prosthetic lens (~12/2014) Hx of section Family History Mother Prediabetes Hyperlipidemia Hypertension Father No problems noted. Social History Household Members: Spouse Housing: House Do you presently have visiting nurse or other home services: No Alcohol intake: former Patient Tobacco Use Status: Never used Tobacco e-Cigarette/Vaping Use: Never Used Second Hand Smoke Exposure: No service: No Current occupational status: retired Cognitive needs: No Hearing needs: Yes Vision needs: No Review of Systems Const Denies daytime sleepiness, Denies difficulty sleeping, Denies snoring, Denies stops breathing during sleep and Denies weakness Card Denies chest pain, Denies rapid heart rate, Denies irregular heart rhythm, Denies claudication, Denies leg edema, Denies lightheadedness, Denies palpitations, Denies dyspnea, Denies dyspnea on exertion, Denies orthopnea, Denies paroxysmal nocturnal dyspnea and Denies slow heart rate Resp Denies cough, Denies dyspnea, Denies dyspnea on exertion and Denies snoring GI Reports no additional complaints, Denies hematochezia, Denies change in stool character and Denies dyspepsia Musc Denies abnormal gait, Denies muscle weakness and Denies numbness Neuro Denies abnormal gait, Denies numbness and Denies weakness Endo Denies palpitations Physical Exam Vital Signs: Last Vital Signs Pulse 60 05/20/25 10:42 BP 112/58 L 05/20/25 10:42 Const General: cooperative, healthy appearing, comfortable, no acute distress and anxious Orientation/consciousness: patient oriented x3 Neck Neck: Yes normal visual inspection and Yes no JVD Chest Other: Pacer site left upper chest - dressing removed, incision well approximated, no bruising, swelling or drainage Resp Effort & Inspection: normal respiratory effort Auscultation: clear to auscultation bilaterally, no crackles, no rales, no rhonchi and no wheezes Cardio Jugular venous distension: no JVD Rate: regular rate Rhythm: regular rhythm Heart sounds: S1 normal heart sound present, S2 normal heart sound present, no murmurs and no rubs Neuro General: patient oriented x3 Extrem General: Yes normal to inspection, No no pedal edema and No calf tenderness Psych Appearance: grossly normal Mental Status: mental status grossly normal Speech and movement: Normal speech and movement present Office Procedures Cardiac Device Check Cardiac Device Check Details: Dual-chamber [employer] pacemaker in place. Programmed in DDDR at 60 beats per minute. Atrial pacing 82% of time. No episodes of atrial fibrillation noted. Atrial and ventricular sensing was adequate. Atrial ventricular pacing thresholds excellent and reprogrammed to enhance battery life. Pacing lead impedance is stable. Battery life is excellent at about 9 years 71925-VF Cardiac Device Check, pacemaker dual lead Procedure code (CPT) selection complete EKG Details: EKG shows atrially paced, ventricularly sensed rhythm 83126-[id number], Complete Assessment & Plan Assessment & Plan (1) Atherosclerotic cardiovascular disease: Code(s): I25.10 - Atherosclerotic heart disease of [place] coronary artery without angina pectoris Category: Medical Plan: Nonobstructive CAD with no significant symptoms at current point time. Currently on full oral anticoagulation with apixaban in his done well. Avoid aspirin therapy to reduce bleeding risk. Currently on high-intensity statin therapy with well optimized LDL. Blood pressure is optimally controlled. She does have orthostatic symptoms and have discussed about orthostatic precautions as well as maintaining adequate hydration to prevent syncopal episodes. She understands and agrees. Maintain activity level as tolerated. (2) Paroxysmal atrial fibrillation: Code(s): I48.0 - Paroxysmal atrial fibrillation Category: Medical Plan: Paroxysmal atrial fibrillation doing extremely well with rhythm control approach. Continue rhythm control approach. Continue antiarrhythmic drug therapy with Multaq. Will continue monitor remotely by pacer. EKGs every 6 months. Continue full oral anticoagulation, currently on Eliquis 5 mg b.i.d.. Semi annual CBC and renal function test should be pursued. (3) Cardiac pacemaker in situ: Code(s): Z95.0 - Presence of cardiac pacemaker Category: Medical Plan: Cardiac pacemaker in-situ for sick sinus syndrome. Pacemaker is working well. Reprogrammed for adequate function. Will follow up remotely every 3 months. Follow up in the clinic in 6 months time, sooner PRN. Thank you for allowing me to partake in her care Coding Level of Care Code Est Pt Level 4 (61487) Complex EM visit Add On G2211 Diagnoses Atherosclerotic cardiovascular disease I25.10 Paroxysmal atrial fibrillation I48.0 Cardiac pacemaker in situ Z95.0 CPT Codes Cardiac Device Check - Cardiac Device 2: 50266-MV Cardiac Device Check, pacemaker dual lead ([id number]) EKG - CPT: 54391-[id number], Complete ([id number])
[2025-05-20 10:42] VITALS: BP 112/58; PULSE 60
--- OUTSIDE RECORDS SUMMARY | 2025-05-20 20:10 | XMS_ITS | Clinical Summary ---
Author Organization [facility] Address [address] [place] [phone] Phone Care Team Providers Care Assistant Office Manager Name Role Phone Unavailable Primary Care Provider [...] It is not the complete legal health record.[facility]
--- OUTSIDE RECORDS SUMMARY | 2025-05-20 20:11 | XMS_ITS | Patient Health Record ---
Author Organization [facility] Address [address] [place] [phone] Care Team Providers Care Supervisor Drawing Name Role Phone Al Myers Unavailable [phone] Reason For Referral No Information Plan Of Treatment No Information
--- OUTSIDE RECORDS SUMMARY | 2025-05-20 20:11 | XMS_ITS | Clinical Summary ---
Author Organization [facility] Address [address] [place] [address] Care Team Providers Care Pet Care Worker Name Role Phone Unknown Primary Care Provider [phone] Allergies No known active allergies Social History [...] (Females,Ages 65 and older) 2013 RSV Vaccine 50 years and older and Patients (1 - 1-dose 75+ series) 12/09/2023 Influenza Vaccine 01/30/2025 COVID-19 Vaccine (3 - 2024-2 6 season) 2025 09/26/2020, 08/29/2020 Hepatitis B Vaccines Aged Out No long er eligible based on patient's age to complete this topic Insurance [employer] MEDICARE Care Teams Pet Care Worker Relationship Specialty Start Date End Date Unknown Unknow Provider Address PCP - General 12/17/23
--- OUTSIDE RECORDS SUMMARY | 2025-05-20 20:11 | XMS_ITS | Data Portability ---
Author Organization [place] - [facility], Allergy Address [address] [place] [phone] Care Team Providers Care Bowling Alley Refinisher Name Role Phone LAISHA IRMA Primary Care Provider Assessment No assessment recorded. [...] Address Organization Details Recorded Time Acute sialoadenitis [id number] Active 2023 KIESHA SAXENA MD [address] [place] [address], [phone], [facility] 06:57:32 Problem Notes None recorded. Procedures Surgical History Date Name Laterality Status Provider Name and Address Organization Details Recorded Time cardiac pacemaker procedure completed KIESHA SAXENA MD [address] [place] [address], [phone], [facility] 06/15/2024 06:55:47 Imaging Results None recorded. [...] Updated DateTime 06/13/2024 157.48 cm 24.8 kg/m2 92702.77 g Veronica Pate [place] - [facility] 06/13/2024 09:38:09 Social History None recorded. Functional Status None recorded. Mental Status None recorded. Family History Nothing Reported. Medical History Condition Response Heart Problems Y Hyperlipidemia Y Gynecological HistoryNo gynecological history recorded. Obstetrics History GPAL:G 0 P 0 0 0 0 Past Encounters Encounter ID Performer Location Encounter Start Date Encounter Closed Date Diagnosis/Indication Diagnosis SNOMED-CT Code Diagnosis ICD10 Code Diagnosis IMO Codes Diagnosis Note [id number] KIESHA SAXENA MD [facility] [address] [phone] 06/13/2024 09:18:56 06/13/2024 15:51:27 Acute sialoadenitis 704399372 K11.21 73-year-ol d female presents today for assessment after being seen in the [place] emergency department for acute left-sided facial swelling. This seemed to be preceded by allergy symptoms. She has been on antibiotic s and feels much improved. [place] [facility] a 2 cm phlegmon versus abscess [...] Conti Member ID Guarantor Name 06/13/2024 1 [facility] (MEDICARE REPLACEMENT/ ADVANTAGE - PPO) [id number] 1 Yaritza Reich [id number] Yaritza Reich Notes Date Note Type Note Provider Name and Address Organization Details Recorded Time 06/13/2024 text/html ROS as noted in the HPI 73 yo F with sialoadenitis. Finishing abx in 3 days, feels much better Initial symptoms included stuffy nose, watery eyes, felt a little tender, went [place] [facility] [place], thought allergy related, next morning, then went to ER Has been on flonase for allergies, previously on allergy shots, going to set up repeat testing No trouble swallowing or sore throatNo ear pain once 4 years ago had some swelling on the right, felt like a blockage then went away She had a CT scan [place] [facility] showing a 2 cm phlegmon versus abscess in the inferior deep left parotid gland, prominent lingual tonsils. KIESHA SAXENA MD [address] [place] [address], [place], [phone], [facility] - [facility] 06/15/2024 07:00:44 OBGyn Episode No OBEpisode recorded.
--- OUTSIDE RECORDS SUMMARY | 2025-05-20 20:11 | XMS_ITS | Encounter Summary ---
Author Organization [facility] Address [address] [place] [address] Care Team Providers Care Curatorial Specialist Name Role Phone Unknown Primary Care Provider [phone] Encounter Details Date Type Department Care Team (Late st Contact Info) Description 12/31/2023 Scanned Document [address] [place] [phone] Radiology, Scan Social History Tobacco Use [...] on filedocumented in this encounter Care Teams Curatorial Specialist Relationship Specialty Start Date End Date Unknown Unknow Provider Address PCP - General 12/17/23 documented as of this encounter
== END 2025-05-20 11:04 | disposition home or self-care (01) ==
LOC: HO.HCS 10:27
PROVIDERS: PCP Internal Medicine; Visit Provider Internal Medicine Cardiovascular Disease
DX: I25.10 Atherosclerotic heart disease of native coronary artery without angina pectoris (principal); I48.0 Paroxysmal atrial fibrillation; Z95.0 Presence of cardiac pacemaker
CPT/HCPCS: 93010; 93280; 99214; G2211

== ENCOUNTER → 2025-05-20 10:26 | Outpatient (BNVA) | payer MEDICARE, SELFPAY | PROVIDERS: PCP Internal Medicine; Visit Provider Internal Medicine Cardiovascular Disease | DX: I25.10 Atherosclerotic heart disease of native coronary artery without angina pectoris (principal); I48.0 Paroxysmal atrial fibrillation; Z95.0 Presence of cardiac pacemaker | CPT/HCPCS: 93005; 93280; 99212 ==